=== PATIENT | female | born 1950 | race Caucasian/White ===

== ENCOUNTER 2017-05-24 16:01 | Observation (INO) | payer BC, MEDICAID ==
[2017-05-24] MEDS ORDERED: diphenhydrAMINE 50 MG/ML 1 ML VIAL IVP STA (16:23)
[2017-05-24] MEDS ORDERED: methylPREDNISolone SOD SUCCI 125 MG/2 ML VIAL IV STA (16:23)
[2017-05-24] MEDS ORDERED: FAMOTIDINE 20 MG/2 ML VIAL IV STA (16:23)
[2017-05-24] MEDS ORDERED: SODIUM CHLORIDE 0.9% 1,000 ML IV STA (16:24)
[2017-05-24] MEDS ORDERED: RX INFO: IV CONTRAST WAS GIVEN 1 EACH MISC MISCELLANE PRN (16:45)
[2017-05-24 16:59] LABS: Basophils # (A) 0.1 k/uL (0-0.2); Basophils % (A) 1 %; Eosinophils # (A) 0.4 k/uL (0-0.7); Eosinophils % (A) 3 %; HCT 40.7 % (34.0-46.0); HGB 13.2 gm/dL (11.4-16.0); Lymphocytes # (A) 1.7 k/uL (1.0-4.8); Lymphocytes % (A) 14 %; MCH 27.6 pg (25.0-35.0); MCHC 32.4 g/dL (31.0-37.0); MCV 85.3 fL (80.0-100.0); Mean Platelet Volume 7.1; Monocytes # (A) 0.5 k/uL (0-1.0); Monocytes % (A) 4 %; Neutrophils # (A) 9.1 k/uL (1.3-7.7); Neutrophils % (A) 76 %; Platelet Count 396 k/uL (150-450); RBC 4.77 m/uL (3.80-5.40); RDW 15.1 % (11.5-15.5)
[2017-05-24 17:15] LABS: Albumin 4.2 g/dL (3.5-5.0); Calcium 10.1 mg/dL (8.4-10.2); Magnesium 1.7 mg/dL (1.6-2.3); Potassium 4.3 mmol/L (3.5-5.1); Total Bilirubin 0.5 mg/dL (0.2-1.3); Total Protein 7.2 g/dL (6.3-8.2)
[2017-05-24 17:28] LABS: INR 0.9 (<1.2); Prothrombin Time 9.3 sec (9.0-12.0)
[2017-05-24 17:29] LABS: Partial Thromboplastin Time 21.8 sec (22.0-30.0)
[2017-05-24 17:30] LABS: Creatine Kinase 25 U/L (30-135)
--- NOTE | 2017-05-24 17:38 | ED ---
General Adult HPI - General Chief complaint: Chest Pain Stated complaint: Needs to have ct done but allergic to contrast Time Seen by Provider: 05/24/17 16:15 Source: patient, RN notes reviewed Mode of arrival: ambulatory Limitations: no limitations - History of Present Illness Initial comments: 66-year-old female presents to the emergency department stating that she does have a CT done of her chest. She states for the last 6 weeks she's been developing this chest pain. She states over the last today she's noticed worsening chest pain IN THE RIGHT SIDE OF HER CHEST AND RADIATING TO HER BACK. SHE STATES SOMETIMES IT'LL RADIATE DOWN HER RIGHT ARM. SHE STATES KEEPING HER UP AT NIGHT TO THE POINT THAT SHE CANNOT SLEEP. PATIENT STATES SHE WENT TO HER DOCTOR TODAY AND THEY REFERRED HER TO HAVE A STAT CT ANGIOGRAM FOR ANEURYSM. PATIENT STATES SHE IS ALLERGIC to the dye so they sent her here. She states that this time she's not having the pain has been getting worse over last 3 days. She has a nausea vomiting or shortness of breath. She does admit to history of hypertension diabetes and history of IL in the past. Patient states that this time she is symptom free and she was just like a CAT scan done. Patient denies any recent fever, chills, shortness of breath, abdominal pain, nausea vomiting, numbness or tingling, dysuria or hematuria, constipation or diarrhea, headaches or visual changes, or any other current symptoms. - Related Data Home Medications Medication Instructions Recorded Confirmed Furosemide 20 mg PO DAILY 09/19/13 05/24/17 Gabapentin 100 mg PO QAM 09/19/13 05/24/17 Lisinopril [Zestril] 20 mg PO BID 09/19/13 05/24/17 Potassium Chloride [Klor-Con 10] 10 meq PO DAILY 09/19/13 05/24/17 Aspirin 162 mg PO DAILY 12/05/14 05/24/17 Atorvastatin [Lipitor] 20 mg PO HS 12/05/14 05/24/17 Gabapentin [Neurontin] 200 mg PO HS 12/05/14 05/24/17 Levothyroxine Sodium [Synthroid] 125 mcg PO MOTUWETHFRSA 12/05/14 05/24/17 amLODIPine [Norvasc] 5 mg PO DAILY 12/05/14 05/24/17 metFORMIN HCL 1,000 mg PO BID 12/05/14 05/24/17 Cetirizine HCl [Zyrtec] 10 mg PO HS 05/24/17 05/24/17 Cholecalciferol [Vitamin D3] 1,000 unit PO DAILY 05/24/17 05/24/17 Glimepiride [Amaryl] 2 mg PO AC-BRKFST 05/24/17 05/24/17 Multivitamins, Thera [Multivitamin 1 tab PO DAILY 05/24/17 05/24/17 (formulary)] Allergies Allergy/AdvReac Type Severity Reaction Status Date / Time haloperidol [From Haldol] Allergy Unknown Verified 05/24/17 16:34 haloperidol lactate Allergy Unknown Verified 05/24/17 16:34 [From Haldol] Iodinated Contrast- Oral and Allergy Unknown Verified 05/24/17 16:34 IV Dye [Iodinated Contrast Media - IV Dye] adhesive AdvReac Severe sores Verified 05/24/17 16:34 ciprofloxacin [From Cipro] AdvReac Heartburn Verified 05/24/17 16:34 steri-strips AdvReac Severe sore Uncoded 05/24/17 16:12 Review of Systems ROS Statement: Those systems with pertinent positive or pertinent negative responses have been documented in the HPI. ROS Other: All systems not noted in ROS Statement are negative. Past Medical History Past Medical History: Heart Failure, Diabetes Mellitus, Hypertension, Myocardial Infarction (IL), Sleep Apnea/CPAP/BIPAP Additional Past Medical History / Comment(s): closed head injury 1988, kidney stones Last Myocardial Infarction Date:: 1988 History of Any Multi-Drug Resistant Organisms: None Reported Past Surgical History: Cholecystectomy, Hysterectomy Additional Past Surgical History / Comment(s): thyroidectomy Past Anesthesia/Blood Transfusion Reactions: Postoperative Nausea & Vomiting ( PONV) Past Psychological History: No Psychological Hx Reported Smoking Status: Never smoker Past Alcohol Use History: None Reported Past Drug Use History: None Reported - Past Family History Mother Family Medical History: Cancer Father Family Medical History: Cancer General Exam - General Exam Comments Initial Comments: General: The patient is awake and alert, in no distress, and does not appear acutely ill. Eye: Pupils are equal, round and reactive to light, extra-ocular movements are intact; there is normal conjunctiva bilaterally. No signs of icterus. Ears, nose, mouth and throat: There are moist mucous membranes. Neck: The neck is supple, there is no tenderness. Cardiovascular: There is a regular rate and rhythm. No murmur, rub or gallop is appreciated. Respiratory: Lungs are clear to auscultation, respirations are non-labored, breath sounds are equal. No wheezes, stridor, rales, or rhonchi. Gastrointestinal: Soft, non-distended, non-tender abdomen without masses or organomegaly noted. There is no rebound or guarding present. No CVA tenderness. Bowel sounds are unremarkable. Back: There is no tenderness to palpation in the midline. There is no obvious deformity. No rashes noted. Musculoskeletal: Normal ROM, no tenderness, There is no pedal edema. There is no calf tenderness or swelling. Sensation intact. Pulses equal bilaterally 2+. Neurological: CN II-XII intact, There are no obvious motor or sensory deficits. Coordination appears grossly intact. Speech is normal. Skin: Skin is warm and dry and no rashes or lesions are noted. Psychiatric: Cooperative, appropriate mood & affect, normal judgment. Limitations: no limitations Course Vital Signs 05/24/17 05/24/17 05/24/17 16:10 17:23 19:20 Temperature 97.8 F Pulse Rate 86 86 77 Respiratory 18 18 18 Rate Blood Pressure 142/70 123/71 154/72 O2 Sat by Pulse 97 97 96 Oximetry EKG Findings - EKG Comments: EKG Findings:: Normal sinus rhythm, left axis deviation, ventricular rate 82, MN interval 182, QRS duration 98 Medical Decision Making - Medical Decision Making 66-year-old female presents for needing CT to rule out aneurysm. Patient does complain of worsening chest pain with hypertension diabetes and history of IL in the past. This time we did do blood work we were unable to just send the patient for outpatient CAT scan because CAT scan stated that they will not give the patient that 3 Meds and they do not do CAT scans from premeds given prior to the patient receiving the CAT scan in the ER and would have to be in ER test ordered. This time the test was ordered and also additional workup for the patient's chest pain. CAT scan has been reviewed that does show some retroperitoneal lymphadenopathy. Patient's laboratory otherwise is stable. This time patient for cardiac rule out. He will like her admitted overnight for observation when discussed with her by Dr. Pimentel. Dr. Jarvis who does agree to the admission. - Lab Data Result diagrams: 05/24/17 16:41 05/24/17 16:41 Lab Results 05/24/17 05/24/17 05/24/17 Range/Units 16:41 16:41 16:41 WBC 12.0 H (3.8-10.6) k/uL RBC 4.77 (3.80-5.40) m/uL Hgb 13.2 (11.4-16.0) gm/dL Hct 40.7 (34.0-46.0) % MCV 85.3 (80.0-100.0) fL MCH 27.6 (25.0-35.0) pg MCHC 32.4 (31.0-37.0) g/dL RDW 15.1 (11.5-15.5) % Plt Count 396 (150-450) k/uL Neutrophils % 76 % Lymphocytes % 14 % Monocytes % 4 % Eosinophils % 3 % Basophils % 1 % Neutrophils # 9.1 H (1.3-7.7) k/uL Lymphocytes # 1.7 (1.0-4.8) k/uL Monocytes # 0.5 (0-1.0) k/uL Eosinophils # 0.4 (0-0.7) k/uL Basophils # 0.1 (0-0.2) k/uL PT (9.0-12.0) sec INR (<1.2) APTT (22.0-30.0) sec Sodium 140 (137-145) mmol/L Potassium 4.3 (3.5-5.1) mmol/L Chloride 99 (98-107) mmol/L Carbon Dioxide 25 (22-30) mmol/L Anion Gap 16 mmol/L BUN 17 (7-17) mg/dL Creatinine 1.02 (0.52-1.04) mg/dL Est GFR (CKD-EPI)AfAm 68 (>60 ml/min/1.73 sqM) Est GFR (CKD-EPI)NonAf 59 (>60 ml/min/1.73 sqM) Glucose 398 H (74-99) mg/dL Calcium 10.1 (8.4-10.2) mg/dL Magnesium 1.7 (1.6-2.3) mg/dL Total Bilirubin 0.5 (0.2-1.3) mg/dL AST 23 (14-36) U/L ALT 24 (9-52) U/L Alkaline Phosphatase 193 H (38-126) U/L Total Creatine Kinase 25 L (30-135) U/L CK-MB (CK-2) 0.3 (0.0-2.4) ng/mL CK-MB (CK-2) Rel Index 1.2 Troponin I <0.012 (0.000-0.034) ng/mL Total Protein 7.2 (6.3-8.2) g/dL Albumin 4.2 (3.5-5.0) g/dL 05/24/17 Range/Units 16:41 WBC (3.8-10.6) k/uL RBC (3.80-5.40) m/uL Hgb (11.4-16.0) gm/dL Hct (34.0-46.0) % MCV (80.0-100.0) fL MCH (25.0-35.0) pg MCHC (31.0-37.0) g/dL RDW (11.5-15.5) % Plt Count (150-450) k/uL Neutrophils % % Lymphocytes % % Monocytes % % Eosinophils % % Basophils % % Neutrophils # (1.3-7.7) k/uL Lymphocytes # (1.0-4.8) k/uL Monocytes # (0-1.0) k/uL Eosinophils # (0-0.7) k/uL Basophils # (0-0.2) k/uL PT 9.3 (9.0-12.0) sec INR 0.9 (<1.2) APTT 21.8 L (22.0-30.0) sec Sodium (137-145) mmol/L Potassium (3.5-5.1) mmol/L Chloride (98-107) mmol/L Carbon Dioxide (22-30) mmol/L Anion Gap mmol/L BUN (7-17) mg/dL Creatinine (0.52-1.04) mg/dL Est GFR (CKD-EPI)AfAm (>60 ml/min/1.73 sqM) Est GFR (CKD-EPI)NonAf (>60 ml/min/1.73 sqM) Glucose (74-99) mg/dL Calcium (8.4-10.2) mg/dL Magnesium (1.6-2.3) mg/dL Total Bilirubin (0.2-1.3) mg/dL AST (14-36) U/L ALT (9-52) U/L Alkaline Phosphatase (38-126) U/L Total Creatine Kinase (30-135) U/L CK-MB (CK-2) (0.0-2.4) ng/mL CK-MB (CK-2) Rel Index Troponin I (0.000-0.034) ng/mL Total Protein (6.3-8.2) g/dL Albumin (3.5-5.0) g/dL - Radiology Data Radiology results: report reviewed, image reviewed Disposition Clinical Impression: Lymphadenopathy, retroperitoneal, Unstable angina Disposition: ADMITTED IP TO THIS [facility] Condition: Stable Referrals: Leonard Solano MD [Primary Care Provider] - 1-2 days Decision Date: 05/24/17 Decision Time: 20:29
[2017-05-24 17:42] LABS: Creatine Kinase MB 0.3 ng/mL (0.0-2.4); Troponin I <0.012 ng/mL (0.000-0.034)
--- NOTE | 2017-05-24 19:13 | XR ---
EXAMINATION TYPE: XR chest 2V DATE OF EXAM: 05/24/2017 COMPARISON: 12/05/2014 HISTORY: Chest pain TECHNIQUE: Frontal and lateral views of the chest are obtained. FINDINGS: Heart and mediastinum are normal. There are small calcified granuloma in the left upper lo be. Lungs are clear of consolidation. There is no heart failure. There is no pleural effusion. There are chest leads. IMPRESSION: No active cardiopulmonary disease. No change.
--- NOTE | 2017-05-24 19:48 | CT ---
EXAMINATION TYPE: CT angio thoracic/abd aorta DATE OF EXAM: 05/24/2017 COMPARISON: 2015 HISTORY: Chest and back pain. CT DLP: 2200 mGycm. Automated Exposure Control for Dose Reduction was Utilized. CONTRAST: CT scan of the thorax, abdomen and pelvis is performed with IV Contrast, patient injected with 100ml mL of Isovue 370. FINDINGS: There are 3-D post processed images. There is no evidence of thoracic aortic aneurysm or dissection. Heart is enlarged. There is no perica rdial effusion. Abdominal aorta has normal size. There is wide patency of the common internal and external iliac wes eric. There is no evidence of abdominal aortic aneurysm or dissection. There is wide patency of the c eliac artery and the superior mesenteric artery. There is bilateral wide patency of the renal arterie s. There are multiple enlarged retroperitoneal lymph nodes on the left side more than the right. These m easure up to 4 cm. There are multiple sigmoid diverticula. There is no evidence of diverticulitis. Bl adder distends smoothly. There is no ascites. Appendix appears normal. There is a 1.5 cm left renal c ortical cyst. There is normal contrast opacification of the kidneys without evidence of a solid renal mass. I see no bony destructive process. There are spondylotic changes in the thoracic and lumbar sp ine. There are calcified granulomata at the left pulmonary hilum. CONCLUSION: There is atherosclerotic vascular disease. No evidence of thoracic aortic aneurysm or dissection. Mild sigmoid diverticulosis without sign of diverticulitis. There is clearing of the right renal obstruction and right renal calculus compared to old CT scan of 12/05/2014. There is new retroperitoneal moderate adenopathy suspicious for lymphoma compared to old exam. Follow -up is recommended.
[2017-05-24] MEDS ORDERED: ASPIRIN 81 MG PO STA (20:30)
[2017-05-24] MEDS ORDERED: NITROGLYCERIN SL TABS 0.4 MG TAB SUBLINGUAL PRN (20:30)
[2017-05-24] MEDS ORDERED: ATORVASTATIN 20 MG TAB PO SCH (21:00)
[2017-05-24 21:18] LABS: Glucose,Whole Blood 311 mg/dL (75-99)
[2017-05-24 21:30] VITALS: BMI 32.1
[2017-05-24] MEDS: GABAPENTIN 100 MG CAP PO SCH (22:29)
[2017-05-24] MEDS: LISINOPRIL 20 MG TAB PO SCH (22:29)
[2017-05-24] MEDS: LORATADINE 10 MG TAB PO SCH (22:29)
[2017-05-24] MEDS ORDERED: FUROSEMIDE 20 MG TAB PO STA (22:33)
[2017-05-24 23:14] LABS: Creatine Kinase 26 U/L (30-135)
[2017-05-24 23:22] LABS: Glucose,Whole Blood 382 mg/dL (75-99)
[2017-05-24 23:28] LABS: Creatine Kinase MB 0.4 ng/mL (0.0-2.4); Troponin I <0.012 ng/mL (0.000-0.034)
[2017-05-25] MEDS: HYDROcodone/APAP 5-325MG 1 EACH TAB PO PRN ×2 (01:30→19:57)
--- NOTE | 2017-05-25 02:38 | HP ---
DOS 05/24/2017 HISTORY AND PHYSICAL I am covering for Dr. Leonard Solano. CHIEF COMPLAINT: Chest pain. HISTORY OF PRESENT ILLNESS: This 66-year-old woman with a past medical history of multiple medical problems including CHF, history of diabetes, hypertension, history of sleep apnea, history of closed head injury being followed by Dr. Leonard Solano in the outpatient setting was complaining of on and off chest pains on the right side of the chest for 6-8 weeks. The patient stated the pain is throbbing and radiating right from the breast to the posterior part of the chest and patient came to [facility]. A CT scan of the abdomen and pelvis did not show any evidence of aortic aneurysm, but showed some retroperitoneal lymph nodes. The patient admitted for further evaluation and treatment. The patient is taking Aleve for the pain. Otherwise there is mild fever . Otherwise no headache, loss of consciousness, seizures at this time. PAST MEDICAL HISTORY: Past medical history of nephrolithiasis and as well as ureteric stent implantation, diabetes, hypertension, sleep apnea, closed injury, cholecystectomy. MEDICATIONS: Prior to admission include: 1. Metformin 1000 mg p.o. b.i.d. 2. Norvasc 5 mg p.o. daily. 3. Klor-Con 10 mEq p.o. daily. 4. Multivitamins 1 p.o. daily. 6. Synthroid 125 mcg Monday, Monday, Monday, , Monday, Monday. 7. Amaryl 2 mg with breakfast. 8. Neurontin 200 mg q.h.s. 9. Gabapentin 100 mg q.a.m. 10.Lasix 20 mg. 11.Vitamin D3 1000 daily. 12.Zyrtec 10 mg daily. 13.Lipitor 20 mg q.h.s. 14.Aspirin 162 mg p.o. daily. ALLERGIES: HALDOL, IODINATED CONTRAST DYE, ADHESIVES, CIPRO AND STERI-STRIPS. FAMILY HISTORY: History of breast cancer in the family. SOCIAL HISTORY: Occasional alcohol intake. No history of smoking. REVIEW OF SYSTEMS: ENT: No diminished vision or hearing. Cardiovascular as mentioned earlier. Respiratory: As mentioned earlier. GI no nausea or vomiting. as mentioned earlier. Central nervous system: No numbness or weakness. Allergy/Immunology: No asthma or hayfever. Musculoskeletal: As mentioned earlier. Hematology/Oncology: No history of anemia. Endocrine as mentioned earlier. Constitutional: As mentioned earlier. DERMATOLOGY: Negative. Negative. Rheumatology: Negative. Psychiatric: As mentioned earlier. PHYSICAL EXAMINATION: Alert oriented x 3. Pulse 77, blood pressure 150/72, respiration 18, temperature 98.4, pulse ox 98% on room air. HEENT: Conjunctivae normal. Oral mucosa moist. Neck is no jugular venous distention. No carotid bruit. No lymph node enlargement. Cardiovascular System: S1, S2 muffled. Respiration: Breath sounds diminished in the bases. No rhonchi and no crackles. ABDOMEN: Soft, nontender. No mass palpable. No hepatosplenomegaly. Legs: No edema and no swelling. NERVOUS SYSTEM: Higher functions as mentioned earlier. Moves all four limbs. No focal deficits. LYMPHATICS: No lymph nodes palpable in neck, axillae or groin. SKIN: No ulcer, rash or bleeding. LAB STUDIES: WBC 12, otherwise glucose 398. Alkaline phosphatase 193. Creatine kinase 25. ASSESSMENT: 1. Right sided chest pain, rule out coronary artery disease. 2. Rule out possible musculoskeletal chest pain. 3. Increased WBC. 4. Rule out urinary tract infection. 5. Diabetes mellitus type 2, poorly controlled. 6. History of congestive heart failure with chronic diastolic dysfunction. 7. Diabetes. 8. Hypertension. 9. Sleep apnea. 10.History of closed head injury. 11.History of nephrolithiasis. RECOMMENDATIONS AND DISCUSSION: In this 66-year-old woman who presented with multiple complex medical issues, we will monitor the patient closely. Continue the current management and symptomatic treatment. Otherwise at this time I would recommend cardiology consultation. CT scan has been done. Repeat blood work as noted. I would also recommend insulin to control the blood sugars also. Otherwise the prognosis guarded because of multiple complex medical issues. Further recommendations to follow. A copy of dictation being forwarded to Dr. Solano who is the primary physician. We will check hemoglobin A1c also. MMODL / IJN: [id number] / LEXUS
[2017-05-25 05:16] LABS: Basophils % (A) 0 %; Eosinophils % (A) 0 %; HCT 40.9 % (34.0-46.0); HGB 12.6 gm/dL (11.4-16.0); Hypochromasia Slight; Lymphocytes # (A) 1.1 k/uL (1.0-4.8); Lymphocytes % (A) 8 %; MCH 26.6 pg (25.0-35.0); MCHC 30.8 g/dL (31.0-37.0); MCV 86.1 fL (80.0-100.0); Mean Platelet Volume 7.3; Monocytes # (A) 0.3 k/uL (0-1.0); Monocytes % (A) 2 %; Neutrophils # (A) 12.1 k/uL (1.3-7.7); Neutrophils % (A) 90 %; Platelet Count 415 k/uL (150-450); RBC 4.75 m/uL (3.80-5.40); RDW 15.3 % (11.5-15.5); WBC 13.5 k/uL (3.8-10.6)
[2017-05-25 05:28] LABS: C Reactive Protein 44.2 mg/L (<10.0); Calcium 10.6 mg/dL (8.4-10.2); Potassium 4.7 mmol/L (3.5-5.1)
[2017-05-25 05:35] LABS: Creatine Kinase 25 U/L (30-135)
[2017-05-25 05:43] LABS: Glucose,Whole Blood 422 mg/dL (75-99)
[2017-05-25] MEDS: LEVOTHYROXINE 125 MCG TAB PO SCH (05:44)
[2017-05-25] MEDS: INSULIN ASPART 100 UNIT/ML 1 ML 10 ML VIAL SQ SCH ×6 (05:45→19:59)
[2017-05-25 05:49] LABS: Creatine Kinase MB 0.4 ng/mL (0.0-2.4); Troponin I <0.012 ng/mL (0.000-0.034)
[2017-05-25 06:43] LABS: Glucose,Whole Blood 426 mg/dL (75-99)
[2017-05-25] MEDS ORDERED: INSULIN ASPART 100 UNIT/ML 1 ML 10 ML VIAL SQ ONE (06:50)
[2017-05-25 07:46] LABS: Glucose,Whole Blood 373 mg/dL (75-99)
[2017-05-25 08:44] LABS: Erythrocyte Sedimentation Rate 70 mm/hr (0-20)
[2017-05-25] MEDS ORDERED: ASPIRIN 325 MG TAB PO SCH (09:00)
[2017-05-25] MEDS ORDERED: FUROSEMIDE 20 MG TAB PO SCH ×2 (09:00)
[2017-05-25] MEDS: metFORMIN 500 MG TAB PO SCH ×2 (09:46→17:11)
[2017-05-25] MEDS: GABAPENTIN 100 MG CAP PO SCH ×2 (09:48→19:57)
[2017-05-25] MEDS: GLIMEPIRIDE 2 MG TAB PO SCH (09:48)
[2017-05-25] MEDS: amLODIPine 5 MG TAB PO SCH (09:48)
[2017-05-25] MEDS: POTASSIUM CHLORIDE ER 10 MEQ TAB.ER.PRT PO SCH (09:48)
[2017-05-25] MEDS: LISINOPRIL 20 MG TAB PO SCH ×2 (09:48→19:57)
[2017-05-25] MEDS: MULTIVITAMINS, THERA 1 EACH TAB PO SCH (09:51)
[2017-05-25] MEDS: CHOLECALCIFEROL 1,000 UNIT TAB PO SCH (09:51)
[2017-05-25] MEDS ORDERED: ASPIRIN 81 MG PO SCH (10:01)
--- NOTE | 2017-05-25 10:02 | P.CRDCN ---
History of Present Illness Consult date: 05/25/17 Consult reason: chest pain History of present illness: Mrs. Ledezma is a pleasant 66-year-old female past medical history significant for diastolic heart failure, diabetes mellitus, hypertension, sleep apnea and kidney stones. She denies history of coronary artery disease. She has seen a amalgamator, Dr. Upton out of [facility] in the past. She states she underwent cardiac catheterization 3-4 yrs ago and there was no blockage, per her. Those records are not available to me at this time. We have been asked to see her in consultation for complaints of chest pain. She states last week she had been feeling pain in the lower back/flank region. She saw her PCP and was started on cipro for a UTI. She took the cipro for a few days and then started noticing a burning sensation in her right anterior chest wall around the right breast. The pain was described as a burning, squeezing sensation that radiated through to the right upper back. The pain was worse with certain movements and when she coughed or sneezed. She denies associated shortness of breath, dizziness, palpitations, nausea, vomiting or diaphoresis. She saw her PCP who recommended she come to ED for evaluation and to rule out aortic dissection. CTA was done and was negative for aortic aneurysm or dissection but did reveal a new retroperitoneal moderate adenopathy suspicious for lymphoma compared to old exam in 2015. At the time of my exam she is seen sitting up in the chair in no acute distress. Chest pain has resolved. EKG reveals sinus mechanism with T-wave inversions noted in the anterior lateral leads. Compared to old EKG this does not look to be anything new. Chest x-ray negative for an acute cardiopulmonary process. Laboratory data reviewed, WBC 13.5, hemoglobin 12.6, sodium 143, potassium 4.7, magnesium 1.7, creatinine 1.2 up from 1.02 on admission, cardiac enzymes negative 3, CRP 44.2, LDL 113. Blood sugars have been upwards of 300 since admission with 475 this morning. Current cardiac medications include aspirin 162 mg daily, atorvastatin 20 mg daily, Lasix 20 mg daily, lisinopril 20 mg twice a day, potassium supplementation 10 daily and Norvasc 5 mg daily. Most recent echocardiogram on file July 2013 reveals reserved left ventricular systolic function with ejection fraction 50-55% and no evidence of valvular heart disease. Review of Systems At the time of my exam: CONSTITUTIONAL: Denies fever. Denies chills. EYES: Denies blurred vision. Denies vision changes. Denies eye pain. EARS, NOSE, MOUTH & THROAT: Denies headache. Denies sore throat. Denies ear pain. CARDIOVASCULAR: Denies chest pain. Denies shortness of breath. Denies orthopnea. Denies PND. Denies palpitations. RESPIRATORY: Denies cough. GASTROINTESTINAL: Denies abdominal pain. Denies diarrhea. Denies constipation. Denies nausea. Denies vomiting. MUSCULOSKELETAL: Denies myalgias. INTEGUMENTARY: Denies pruitis. Denies rash. NEUROLOGIC: Denies numbness. Denies tingling. Denies weakness. PSYCHIATRIC: Denies anxiety. Denies depression. ENDOCRINE: Denies fatigue. Denies weight change. Denies polydipsia. Denies polyurina. GENITOURINARY: Denies burning, hematuria or urgency with micturation. HEMATOLOGIC: Denies history of anemia. Denies bleeding. Past Medical History Past Medical History: Heart Failure, Diabetes Mellitus, Hypertension, Sleep Apnea/CPAP/BIPAP Additional Past Medical History / Comment(s): closed head injury 1988, kidney stones Last Myocardial Infarction Date:: 1988 History of Any Multi-Drug Resistant Organisms: None Reported Past Surgical History: Cholecystectomy, Hysterectomy Additional Past Surgical History / Comment(s): thyroidectomy Past Anesthesia/Blood Transfusion Reactions: Postoperative Nausea & Vomiting ( PONV) Smoking Status: Never smoker - Past Family History Mother Family Medical History: Cancer Additional Family Medical History / Comment(s): breast CA Father Family Medical History: Cancer Additional Family Medical History / Comment(s): colon CA Medications and Allergies Home Medications Medication Instructions Recorded Confirmed Type Furosemide 20 mg PO DAILY 09/19/13 05/24/17 History Gabapentin 100 mg PO QAM 09/19/13 05/24/17 History Lisinopril [Zestril] 20 mg PO BID 09/19/13 05/24/17 History Potassium Chloride [Klor-Con 10] 10 meq PO DAILY 09/19/13 05/24/17 History Aspirin 162 mg PO DAILY 12/05/14 05/24/17 History Atorvastatin [Lipitor] 20 mg PO HS 12/05/14 05/24/17 History Gabapentin [Neurontin] 200 mg PO HS 12/05/14 05/24/17 History Levothyroxine Sodium [Synthroid] 125 mcg PO MOTUWETHFRSA 12/05/14 05/24/17 History amLODIPine [Norvasc] 5 mg PO DAILY 12/05/14 05/24/17 History metFORMIN HCL 1,000 mg PO BID 12/05/14 05/24/17 History Cetirizine HCl [Zyrtec] 10 mg PO HS 05/24/17 05/24/17 History Cholecalciferol [Vitamin D3] 1,000 unit PO DAILY 05/24/17 05/24/17 History Glimepiride [Amaryl] 2 mg PO AC-BRKFST 05/24/17 05/24/17 History Multivitamins, Thera [Multivitamin 1 tab PO DAILY 05/24/17 05/24/17 History (formulary)] Allergies Allergy/AdvReac Type Severity Reaction Status Date / Time haloperidol [From Haldol] Allergy Unknown Verified 05/24/17 21:16 haloperidol lactate Allergy Unknown Verified 05/24/17 21:16 [From Haldol] Iodinated Contrast- Oral and Allergy Rash/Hives Verified 05/24/17 21:16 IV Dye [Iodinated Contrast Media - IV Dye] adhesive AdvReac Severe sores Verified 05/24/17 21:16 ciprofloxacin [From Cipro] AdvReac Heartburn Verified 05/24/17 21:16 steri-strips AdvReac Severe sore Uncoded 05/24/17 21:16 Physical Exam Vitals: Vital Signs Temp Pulse Pulse Resp BP BP Pulse Ox 05/25/17 04:00 98.1 F 79 16 122/64 96 05/25/17 03:23 18 05/25/17 00:00 18 05/24/17 23:26 98.2 F 80 17 119/62 94 L 05/24/17 21:23 98.5 F 81 16 140/73 98 05/24/17 20:36 97 18 138/92 96 05/24/17 19:20 77 18 154/72 96 05/24/17 17:23 86 18 123/71 97 05/24/17 16:10 97.8 F 86 18 142/70 97 Intake and Output 05/24/17 05/25/17 05/25/17 22:59 06:59 14:59 Other: # Voids 1 1 Weight 79.6 kg Blood pressure 141/74 heart rate 93 afebrile maintaining oxygen saturation on room air GENERAL: This is a 66-year-old female in no apparent distress at the time of my examination. Obese. HEENT: Head is atraumatic, normocephalic. Pupils are equal, round. Sclerae anicteric. Conjunctivae are clear. Mucous membranes of the mouth are moist. Neck is supple. There is no jugular venous distention. No carotid bruit is heard. LUNGS: Clear to auscultation no wheezes, rales or rhonchi. No chest wall tenderness is noted on palpation or with deep breathing. HEART: Regular rate and rhythm without murmurs, rubs or gallops. S1 and S2 heard. ABDOMEN: Soft, nontender. Bowel sounds are heard. No organomegaly noted. EXTREMITIES: No evidence of peripheral edema and no calf tenderness noted. VASCULAR: Radial and dorsalis pedis pulses palpated, no evidence of clubbing. NEUROLOGIC: Patient is awake, alert and oriented x3. Results 05/25/17 04:32 05/25/17 04:32 Cardiac Enzymes 05/24/17 05/24/17 05/24/17 Range/Units 16:41 16:41 22:16 AST 23 (14-36) U/L CK-MB (CK-2) 0.3 0.4 (0.0-2.4) ng/mL Troponin I <0.012 <0.012 (0.000-0.034) ng/mL 05/25/17 Range/Units 04:32 AST (14-36) U/L CK-MB (CK-2) 0.4 (0.0-2.4) ng/mL Troponin I <0.012 (0.000-0.034) ng/mL Coagulation 05/24/17 Range/Units 16:41 PT 9.3 (9.0-12.0) sec APTT 21.8 L (22.0-30.0) sec Lipids 05/25/17 Range/Units 04:32 Triglycerides 65 (<150) mg/dL Cholesterol 182 (<200) mg/dL HDL Cholesterol 56 (40-60) mg/dL CBC 05/24/17 05/25/17 Range/Units 16:41 04:32 WBC 12.0 H 13.5 H (3.8-10.6) k/uL RBC 4.77 4.75 (3.80-5.40) m/uL Hgb 13.2 12.6 (11.4-16.0) gm/dL Hct 40.7 40.9 (34.0-46.0) % Plt Count 396 415 (150-450) k/uL Comprehensive Metabolic Panel 05/24/17 05/25/17 Range/Units 16:41 04:32 Sodium 140 143 (137-145) mmol/L Potassium 4.3 4.7 (3.5-5.1) mmol/L Chloride 99 101 (98-107) mmol/L Carbon Dioxide 25 20 L (22-30) mmol/L BUN 17 21 H (7-17) mg/dL Creatinine 1.02 1.20 H (0.52-1.04) mg/dL Glucose 398 H 475 H* (74-99) mg/dL Calcium 10.1 10.6 H (8.4-10.2) mg/dL AST 23 (14-36) U/L ALT 24 (9-52) U/L Alkaline Phosphatase 193 H (38-126) U/L Total Protein 7.2 (6.3-8.2) g/dL Albumin 4.2 (3.5-5.0) g/dL Current Medications Generic Name Dose Route Start Last Admin Trade Name Freq PRN Reason Stop Dose Admin Hydrocodone Bitart/Acetaminophen 1 each 05/25/17 00:08 05/25/17 01:30 [place] 5-325 PO 1 each Q6HR PRN Administration MODERATE Pain Amlodipine Besylate 5 mg 05/25/17 09:00 Norvasc PO DAILY [facility] Aspirin 325 mg 05/25/17 09:00 Aspirin PO DAILY [facility] Atorvastatin Calcium 20 mg 05/24/17 21:00 05/24/17 22:29 Lipitor PO 20 mg HS YVETTE Administration Cholecalciferol 1,000 unit 05/25/17 12:00 Vitamin D3 PO DAILY@1200 [facility] Furosemide 20 mg 05/25/17 09:00 Lasix PO BID@0900,1600 [facility] Gabapentin 100 mg 05/25/17 09:00 Neurontin PO QAM YVETTE Gabapentin 200 mg 05/24/17 21:00 05/24/17 22:29 Neurontin PO 200 mg HS YVETTE Administration Glimepiride 2 mg 05/25/17 07:30 Amaryl PO AC-BRKFST [facility] Insulin Aspart 0 unit 05/25/17 07:30 05/25/17 05:45 Novolog SQ 8 unit ACHS YVETTE Administration Protocol Levothyroxine Sodium 125 mcg 05/25/17 06:30 05/25/17 05:44 Synthroid PO 125 mcg MOTUWETHFRSA YVETTE Administration Lisinopril 20 mg 05/24/17 21:00 05/24/17 22:29 Zestril PO 20 mg BID YVETTE Administration Loratadine 10 mg 05/24/17 21:00 05/24/17 22:29 Claritin PO 10 mg HS [facility] Administration Metformin HCl 1,000 mg 05/25/17 07:30 Glucophage PO BID-W/MEALS [facility] Miscellaneous Information 1 each 05/24/17 16:45 05/24/17 16:56 Rx Info: Iv Contrast Was Given MISCELLANE 05/26/17 16:46 1 each DAILY PRN Administration Per Protocol Multivitamins 1 each 05/25/17 12:00 Theragran PO DAILY@1200 [facility] Nitroglycerin 0.4 mg 05/24/17 20:30 Nitrostat SUBLINGUAL Q5M PRN Chest Pain Potassium Chloride 10 meq 05/25/17 09:00 K-Dur 10 PO DAILY YVETTE Intake and Output 05/24/17 05/25/17 05/25/17 22:59 06:59 14:59 Other: # Voids 1 1 Weight 79.6 kg 05/25/17 04:32 05/25/17 04:32 Assessment and Plan Assessment: ASSESSMENT 1. Right sided chest pain, atypical for an acute ischemic event. EKG shows no evidence of acute ischemic changes and cardiac enzymes are negative 3. Acute coronary event has been ruled out. 2. Hypertension 3. Dyslipidemia 4. Diabetes mellitus, uncontrolled 5. History of diastolic heart failure 6. Leukocytosis 7. Sleep apnea PLAN Her pain is very atypical for cardiac etiology. We will obtain a 2-D echocardiogram and Doppler study to assess cardiac structure and function. Obtain records of previous catheterization. Continue with medical management of uncontrolled diabetes and questionable lymphoma on CT scan. Increase atorvastatin 40 mg daily. Change aspirin to 81 mg daily. Continue with lisinopril, amlodipine and Lasix at home doses. Follow-up with her primary amalgamator upon discharge. Nurse Practitioner note has been reviewed, I agree with a documented findings and plan of care. Patient was seen and examined.
[2017-05-25 11:54] LABS: Appearance,Urine Clear (Clear); Bilirubin,Urine Negative (Negative); Blood,Urine Negative (Negative); Color,Urine Yellow; Glucose,Urine (UA) 4+ (Negative); Ketones,Urine Negative (Negative); Leukocyte Esterase,Urine Negative (Negative); Nitrite,Urine Negative (Negative); PH, Urine 5.5 (5.0-8.0); Protein,Urine Trace (Negative); Specific Gravity,Urine 1.031 (1.001-1.035); Urobilinogen,Urine <2.0 mg/dL (<2.0)
[2017-05-25 12:09] LABS: Glucose,Whole Blood 318 mg/dL (75-99)
--- NOTE | 2017-05-25 12:11 | P.CONS ---
History of Present Illness - Reason for Consult Consult date: 05/25/17 retorperitoneal adenopathy Requesting physician: Edith Malloy - Chief Complaint chest pain - History of Present Illness Mrs. Ledezma is a very pleasant female pt admitted with chest pain, she has been seen by IM and Cardiology and her presenting symptoms have resolved. As part of her work up she had a CT of the aorta and incidentally multiple retroperitoneal lymph nodes were seen, L>R, up to 4cm in size, which is why we have been asked to see her. Pt denies unintentional wt. loss, acute changes in appetite, fevers, night sweats, recent illnesses. She is positive for 6-8 weeks of "lot's of back pain", all over, but more in the mid back on the right, came and went, worse when laying flat, aleve helped the pain, she was treated for a UTI and that helped the pain a little bit but, she just " knows someting is wrong". Denied cough, SOB, current chest pain or pressure, nausea, vomiting, did have some heartburn with abx therapy for UTI, no changes on bowel or bladder habits, nematuria, black or bloody stool, pain with elimination, swelling or other pain to report. Review of Systems 14 point ROS as stated in HPI Past Medical History Past Medical History: Heart Failure, Diabetes Mellitus, Hypertension, Sleep Apnea/CPAP/BIPAP Additional Past Medical History / Comment(s): closed head injury 1988, kidney stones Last Myocardial Infarction Date:: 1988 History of Any Multi-Drug Resistant Organisms: None Reported Past Surgical History: Cholecystectomy, Hysterectomy Additional Past Surgical History / Comment(s): thyroidectomy Past Anesthesia/Blood Transfusion Reactions: Postoperative Nausea & Vomiting ( PONV) Additional Psychological History / Comment(s): TBI Smoking Status: Never smoker Past Alcohol Use History: Unable to Obtain Past Drug Use History: None Reported - Past Family History Mother Family Medical History: Cancer Additional Family Medical History / Comment(s): breast CA Father Family Medical History: Cancer Additional Family Medical History / Comment(s): colon CA Medications and Allergies Home Medications Medication Instructions Recorded Confirmed Type Furosemide 20 mg PO DAILY 09/19/13 05/24/17 History Gabapentin 100 mg PO QAM 09/19/13 05/24/17 History Lisinopril [Zestril] 20 mg PO BID 09/19/13 05/24/17 History Potassium Chloride [Klor-Con 10] 10 meq PO DAILY 09/19/13 05/24/17 History Aspirin 162 mg PO DAILY 12/05/14 05/24/17 History Atorvastatin [Lipitor] 20 mg PO HS 12/05/14 05/24/17 History Gabapentin [Neurontin] 200 mg PO HS 12/05/14 05/24/17 History Levothyroxine Sodium [Synthroid] 125 mcg PO MOTUWETHFRSA 12/05/14 05/24/17 History amLODIPine [Norvasc] 5 mg PO DAILY 12/05/14 05/24/17 History metFORMIN HCL 1,000 mg PO BID 12/05/14 05/24/17 History Cetirizine HCl [Zyrtec] 10 mg PO HS 05/24/17 05/24/17 History Cholecalciferol [Vitamin D3] 1,000 unit PO DAILY 05/24/17 05/24/17 History Glimepiride [Amaryl] 2 mg PO AC-BRKFST 05/24/17 05/24/17 History Multivitamins, Thera [Multivitamin 1 tab PO DAILY 05/24/17 05/24/17 History (formulary)] Allergies Allergy/AdvReac Type Severity Reaction Status Date / Time haloperidol [From Haldol] Allergy Unknown Verified 05/24/17 21:16 haloperidol lactate Allergy Unknown Verified 05/24/17 21:16 [From Haldol] Iodinated Contrast- Oral and Allergy Rash/Hives Verified 05/24/17 21:16 IV Dye [Iodinated Contrast Media - IV Dye] adhesive AdvReac Severe sores Verified 05/24/17 21:16 ciprofloxacin [From Cipro] AdvReac Heartburn Verified 05/24/17 21:16 steri-strips AdvReac Severe sore Uncoded 05/24/17 21:16 Physical Exam Vitals: Vital Signs Temp Pulse Pulse Resp BP BP Pulse Ox 05/25/17 08:00 97.7 F 93 18 141/74 99 05/25/17 04:00 98.1 F 79 16 122/64 96 05/25/17 03:23 18 05/25/17 00:00 18 05/24/17 23:26 98.2 F 80 17 119/62 94 L 03/28/18 21:23 98.5 F 81 16 140/73 98 05/24/17 20:36 97 18 138/92 96 05/24/17 19:20 77 18 154/72 96 05/24/17 17:23 86 18 123/71 97 05/24/17 16:10 97.8 F 86 18 142/70 97 Intake and Output 05/24/17 05/25/17 05/25/17 22:59 06:59 14:59 Other: # Voids 1 1 Weight 79.6 kg - Constitutional General appearance: cooperative, no acute distress, obese - EENT Eyes: anicteric sclerae, EOMI, PERRLA, normal appearance ENT: hearing grossly normal, normal oropharynx - Neck left submandibular ?LN, firm area that was tender to palpation. Left supraclavicular fullness, possible LN swelling, no other areas of question, no axillary lymphadenpathy Neck: lymphadenopathy - Respiratory Respiratory: bilateral: CTA - Cardiovascular Rhythm: regular Heart sounds: normal: S1, S2 Abnormal Heart Sounds: no systolic murmur, no diastolic murmur, no rub, no S3 Gallop, no S4 Gallop, no click, no other leg Peripheral Edema: bilateral: None - Gastrointestinal General gastrointestinal: no absent bowel sounds, no decreased bowel sounds, no distended, no hepatomegaly, no hyperactive bowel sounds, normal bowel sounds, no organomegaly, no rigid, no scaphoid, soft, no splenomegaly, no tenderness, no umbilical hernia, no ventral hernia - Genitourinary no inguinal adenopathy - Integumentary Integumentary: normal - Neurologic Neurologic: CNII-XII intact - Musculoskeletal Musculoskeletal: strength equal bilaterally - Psychiatric Psychiatric: A&O x's 3, appropriate affect, intact judgment & insight Results CBC & Chem 7: 05/25/17 04:32 05/25/17 04:32 Labs: Abnormal Lab Results - Last 24 Hours (Table) 05/24/17 05/24/17 05/24/17 Range/Units 16:41 16:41 16:41 WBC 12.0 H (3.8-10.6) k/uL MCHC (31.0-37.0) g/dL Neutrophils # 9.1 H (1.3-7.7) k/uL ESR (0-20) mm/hr APTT (22.0-30.0) sec Carbon Dioxide (22-30) mmol/L BUN (7-17) mg/dL Creatinine (0.52-1.04) mg/dL Glucose 398 H (74-99) mg/dL POC Glucose (mg/dL) (75-99) mg/dL Calcium (8.4-10.2) mg/dL Alkaline Phosphatase 193 H (38-126) U/L Total Creatine Kinase 25 L (30-135) U/L C-Reactive Protein (<10.0) mg/L LDL Cholesterol, Calc (0-99) mg/dL 05/24/17 05/24/17 05/24/17 Range/Units 16:41 21:09 22:16 WBC (3.8-10.6) k/uL MCHC (31.0-37.0) g/dL Neutrophils # (1.3-7.7) k/uL ESR (0-20) mm/hr APTT 21.8 L (22.0-30.0) sec Carbon Dioxide (22-30) mmol/L BUN (7-17) mg/dL Creatinine (0.52-1.04) mg/dL Glucose (74-99) mg/dL POC Glucose (mg/dL) 311 H (75-99) mg/dL Calcium (8.4-10.2) mg/dL Alkaline Phosphatase (38-126) U/L Total Creatine Kinase 26 L (30-135) U/L C-Reactive Protein (<10.0) mg/L LDL Cholesterol, Calc (0-99) mg/dL 05/24/17 05/25/17 05/25/17 Range/Units 23:01 04:32 04:32 WBC (3.8-10.6) k/uL MCHC (31.0-37.0) g/dL Neutrophils # (1.3-7.7) k/uL ESR (0-20) mm/hr APTT (22.0-30.0) sec Carbon Dioxide 20 L (22-30) mmol/L BUN 21 H (7-17) mg/dL Creatinine 1.20 H (0.52-1.04) mg/dL Glucose 475 H* (74-99) mg/dL POC Glucose (mg/dL) 382 H (75-99) mg/dL Calcium 10.6 H (8.4-10.2) mg/dL Alkaline Phosphatase (38-126) U/L Total Creatine Kinase 25 L (30-135) U/L C-Reactive Protein 44.2 H (<10.0) mg/L LDL Cholesterol, Calc 113 H (0-99) mg/dL 05/25/17 05/25/17 05/25/17 Range/Units 04:32 05:40 06:41 WBC 13.5 H (3.8-10.6) k/uL MCHC 30.8 L (31.0-37.0) g/dL Neutrophils # 12.1 H (1.3-7.7) k/uL ESR 70 H (0-20) mm/hr APTT (22.0-30.0) sec Carbon Dioxide (22-30) mmol/L BUN (7-17) mg/dL Creatinine (0.52-1.04) mg/dL Glucose (74-99) mg/dL POC Glucose (mg/dL) 422 H 426 H (75-99) mg/dL Calcium (8.4-10.2) mg/dL Alkaline Phosphatase (38-126) U/L Total Creatine Kinase (30-135) U/L C-Reactive Protein (<10.0) mg/L LDL Cholesterol, Calc (0-99) mg/dL 05/25/17 Range/Units 07:44 WBC (3.8-10.6) k/uL MCHC (31.0-37.0) g/dL Neutrophils # (1.3-7.7) k/uL ESR (0-20) mm/hr APTT (22.0-30.0) sec Carbon Dioxide (22-30) mmol/L BUN (7-17) mg/dL Creatinine (0.52-1.04) mg/dL Glucose (74-99) mg/dL POC Glucose (mg/dL) 373 H (75-99) mg/dL Calcium (8.4-10.2) mg/dL Alkaline Phosphatase (38-126) U/L Total Creatine Kinase (30-135) U/L C-Reactive Protein (<10.0) mg/L LDL Cholesterol, Calc (0-99) mg/dL Chest x-ray: report reviewed CT scan - abdomen: report reviewed Assessment and Plan (1) Lymphadenopathy, retroperitoneal Narrative/Plan: Possible some adenopathy in the left submandibular area and left supraclavicular area. CT of chest and neck ordered for evaluation and to see if there are any other areas of lymphadenopathy that are more amenable to core biopsy or excision. If there are plans for discharge biopsy could be scheduled out pt as pt with a follow up with Dr. Paulson for results. Case was discussed with IM STEM MAKER, agree with work up at this time. They are working on treating pt severe hyperglycemia. Current Visit: Yes Status: Acute Priority: High Code(s): R59.0 - LOCALIZED ENLARGED LYMPH NODES SNOMED Code(s): 886228758
[2017-05-25] MEDS: INSULIN DETEMIR 100 UNIT/ML 10 ML VIAL SQ SCH (12:16)
--- NOTE | 2017-05-25 12:34 | ECHOF ---
Referral Reason:cp MEASUREMENTS -------- HEIGHT: 157.5 cm WEIGHT: 79.4 kg BP: IVSd: 1.2 cm (0.6 - 1.1) LVIDd: 4.0 cm (3.9 - 5.3) LVPWd: 1.3 cm (0.6 - 1.1) IVSs: 2.1 cm LVIDs: 2.1 cm LVPWs: 1.8 cm Ao Diam: 3.3 cm (2.0 - 3.7) AV Cusp: 1.9 cm (1.5 - 2.6) LA Diam: 3.2 cm (2.7 - 3.8) MV EXCURSION: 11.800 mm (> 18.000) MV EF SLOPE: 48 mm/s (70 - 150) EPSS: 1.5 cm MV E Marek: 0.73 m/s MV DecT: 184 ms MV A Marek: 1.16 m/s MV E/A Ratio: 0.63 RAP: 5.00 mmHg RVSP: 8.92 mmHg FINDINGS -------- Sinus rhythm. This was a technically difficult study with suboptimal views. The left ventricular size is normal. There is mild concentric left ventricular hypertrophy. Overa ll left ventricular systolic function is low-normal with, an EF between 50 - 55 %. The right ventricle is normal in size and function. The left atrium is normal in size. The right atrium is normal in size. Lumason used The aortic valve is trileaflet, and appears structurally normal. No aortic stenosis or regurgitation. The mitral valve leaflets are mildly thickened. There is trace mitral regurgitation. Mild tricuspid regurgitation present. The right ventricular systolic pressure, as measured by Doppl er, is 8.92mmHg. Pulmonic valve appears structurally normal. The aortic root size is normal. The pericardium is normal. CONCLUSIONS -------- 1. Sinus rhythm. 2. This was a technically difficult study with suboptimal views. 3. The left ventricular size is normal. 4. There is mild concentric left ventricular hypertrophy. 5. Overall left ventricular systolic function is low-normal with, an EF between 50 - 55 %. 6. The right ventricle is normal in size and function. 7. The left atrium is normal in size. 8. The right atrium is normal in size. 9. Lumason used 10. The aortic valve is trileaflet, and appears structurally normal. No aortic stenosis or regurgitat ion. 11. The mitral valve leaflets are mildly thickened. 12. There is trace mitral regurgitation. 13. Mild tricuspid regurgitation present. 14. The right ventricular systolic pressure, as measured by Doppler, is 8.92mmHg. 15. Pulmonic valve appears structurally normal. 16. The aortic root size is normal. 17. The pericardium is normal. EYELET PUNCH OPERATOR: Ginny Barros RDCS
[2017-05-25] MEDS ORDERED: IOPAMIDOL-300 CONTRAST 30 ML VIAL (ORAL USE) PO PRN (12:35)
--- NOTE | 2017-05-25 14:01 | CT ---
EXAMINATION TYPE: CT soft tissue neck wo con DATE OF EXAM: 05/25/2017 COMPARISON: CT brain 04/04/2011 HISTORY: 66-year-old female Left supraclavicular fullness TECHNIQUE: Contiguous axial scanning of the neck without IV contrast. Coronal and sagittal reconstruc tions performed. CT DLP: 442.90 mGycm Automated exposure control for dose reduction was used. FINDINGS: Focal hypodensity lateral inferior left temporal lobe partially visualized has an appearance similar to the 04/04/2011 CT probably represents an area of encephalomalacia. Orbits and globes, visualized par anasal sinuses, and mastoid air cells are clear. Rightward nasal septal deviation. Lack of IV contrast limits assessment of the mucosal space within this limitation, the nasopharynx ap pears clear. There is dental amalgam artifact limiting assessment of the oropharynx. Fullness of the bilateral pal atine tonsils in the assessed with direct visualization. The glottic and subglottic airway as well as the tracheal column appear clear. Chest reported separat rosario. The thyroid gland is either atrophic or surgically absent. The submandibular and parotid glands appea r satisfactory. Borderline sized 8mm left submandibular space lymph node. Additional scattered cervical lymph nodes o n both sides measuring up to 8 mm. No supraclavicular lymphadenopathy is identified on this noncontra st study. Bones: Spondylotic change with grade 1 anterolisthesis at C4-C5. Some heterotopic ossification residential director iorly along the midline opposite C5 and C6. IMPRESSION: 1. SOFT TISSUE FULLNESS IN THE REGION OF THE BILATERAL PALATINE TONSILS. THIS CAN BE CORRELATED WITH DIRECT VISUALIZATION. PROBABLE TONSILLAR HYPERTROPHY. 2. AN ASYMMETRIC BORDERLINE-SIZED 8MM LEFT SUBMANDIBULAR SPACE LYMPH NODE CAN BE FOLLOWED CLINICALLY. 3. NO SUSPICIOUS MASS OR LYMPHADENOPATHY IDENTIFIED IN THE LEFT SUPRACLAVICULAR REGION OR ELSEWHERE I N THE NECK.
--- NOTE | 2017-05-25 14:13 | CT ---
EXAMINATION TYPE: CT ChestAbdPelvis wo con DATE OF EXAM: 05/25/2017 COMPARISON: 05/24/2017 and 12/05/2014 HISTORY: 66-year-old female retroperitoneal Lymphadenopathy TECHNIQUE: Contiguous axial scanning of the chest, abdomen, and pelvis without IV contrast. Coronal a nd sagittal reconstructions performed. CT DLP: 1130.0 mGycm Automated exposure control for dose reduction was used. FINDINGS: Chest: Heart is upper limits of normal in size without pericardial effusion. Mild coronary vessel calcificat ions are present. Ascending aortic ectatic at 3.8 cm. Conventional arch vessel branching anatomy. Scattered nonenlarged mediastinal and axillary lymph nodes are present. Some calcified left paratrach eal and left hilar lymph nodes compatible with prior granulomatous disease with a calcified granuloma at the left midlung. Mild emphysematous change and some strandy atelectasis at the peripheral left base. No consolidation or pleural effusion. ABDOMEN: Noncontrast appearance of the liver, adrenal glands, spleen, and mildly atrophic pancreas show no gilles ss abnormality. Retroaortic left renal vein. Cholecystectomy clips. Faint contrast seen still being excreted from the kidneys. Subcentimeter hypodensity lateral upper to midpole left kidney too small for accurate CT characterization, probable cyst. Redemonstrated retroperitoneal lymphadenopathy. Lymph nodes measure up to 1 cm in the gastrohepatic l igament region, 9 mm near the right rocio of the diaphragm, 1.4 cm gastroduodenal, 1.9 cm caval, 1.1 c m retrocaval, 4.8 x 2.9 cm left para-aortic. No dilated small bowel, free fluid, or free air. Normal appendix. Mild to moderate stool. Diffuse colonic diverticulosis. No pericolonic inflammatory change. Pelvis: Previously injected IV contrast has collected in the bladder which is incompletely distended. Uterus surgically absent. Neither ovary is clearly visualized. Pelvic phleboliths. No abnormal fluid collect ion in the pelvis or pelvic lymphadenopathy seen. Bones: Mild degenerative changes at the hips and SI joints. Advanced degenerative changes throughout the lum bar spine with grade 1 retrolistheses at L2-L3 and L3-L4 and grade 1 anterolisthesis at L4-L5. No oss eous destructive process. IMPRESSION: 1. STABLE RETROPERITONEAL LYMPHADENOPATHY MEASURING UP TO 4.8 X 2.9 CM AND ADDITIONAL UPPER ABDOMINAL LYMPHADENOPATHY MEASURING UP TO 1.9 CM. NO OTHER LYMPHADENOPATHY SEEN IN THE THORAX OR PELVIS. LYMPH JOJO AND METASTATIC DISEASE ARE THE PRIMARY DIFFERENTIALS. 2. FAINT CONTRAST SEEN STILL BEING EXCRETED FROM THE KIDNEYS. CORRELATE FOR ACUTE RENAL FAILURE.
[2017-05-25 14:20] LABS: Hemoglobin A1C 8.3 % (4.0-6.0)
[2017-05-25 16:53] LABS: Glucose,Whole Blood 375 mg/dL (75-99)
--- NOTE | 2017-05-25 19:51 | PN ---
PROGRESS NOTE DATE OF SERVICE: 05/25/2017 This 66-year-old woman who was admitted with right-sided chest pain is being closely monitored. Patient also had lymphadenopathy, and a chest, abdomen and pelvis CT scan was done which showed stable retroperitoneal lymphadenopathy measuring up to 4.8 x 2.9 cm and additional upper abdominal lymphadenopathy measuring up to 1.9 cm. Soft tissue neck CT scan showed no suspicious mass at this time. Hematology/Oncology is following the patient closely. A 2D echo with Doppler was done. Cardiology has also seen the patient. Blood sugar is elevated. Two-dimensional with Doppler showed ejection fraction about 50% to 55%. PHYSICAL EXAMINATION: Alert and oriented x3. Pulse is 69, blood pressure 124/70, respiration 18, temperature 98 degrees, pulse ox 98% on room air. HEENT: Conjunctivae normal. NECK: No jugular venous distention. CARDIOVASCULAR SYSTEM: S1, S2 muffled. RESPIRATORY SYSTEM: Breath sounds diminished at the bases. No rhonchi. No crackles. ABDOMEN: Soft, non-tender. No mass palpable. LEGS: No edema. No swelling. NERVOUS SYSTEM: No focal deficit. LABS: Accu-Cheks 318 and 375. ASSESSMENT: 1. Chest pain, right-sided, possible musculoskeletal. Myocardial infarction ruled out. 2. Increased white count. 3. Urinary tract infection. 4. Diabetes mellitus, type 2, poorly controlled. 5. Retroperitoneal and upper abdominal lymphadenopathy. 6. History of congestive heart failure with chronic diastolic dysfunction. 7. Diabetes mellitus, type 2. 8. Hypertension. 9. Sleep apnea. 10.History of closed head injury. 11.History of nephrolithiasis. RECOMMENDATIONS AND DISCUSSION: I recommend to continue current medication, continue symptomatic treatment. Repeat labs. Closely follow with the consultants and increase ambulation. Guarded prognosis. The patient will need followup for the abnormal findings on the CT scan. Further recommendations to follow. MMODL / IJN: [id number] /
[2017-05-25] MEDS: LORATADINE 10 MG TAB PO SCH (19:57)
[2017-05-25 20:06] LABS: Glucose,Whole Blood 258 mg/dL (75-99)
[2017-05-25] MEDS ORDERED: ATORVASTATIN 20 MG TAB PO SCH (21:00)
[2017-05-26 03:11] LABS: Glucose,Whole Blood 125 mg/dL (75-99)
[2017-05-26] MEDS: LEVOTHYROXINE 125 MCG TAB PO SCH (05:32)
[2017-05-26 06:51] LABS: Glucose,Whole Blood 132 mg/dL (75-99)
[2017-05-26 07:57] LABS: Basophils # (A) 0.1 k/uL (0-0.2); Basophils % (A) 1 %; Eosinophils # (A) 0.1 k/uL (0-0.7); Eosinophils % (A) 1 %; HCT 34.4 % (34.0-46.0); HGB 11.1 gm/dL (11.4-16.0); Lymphocytes # (A) 2.4 k/uL (1.0-4.8); Lymphocytes % (A) 20 %; MCHC 32.3 g/dL (31.0-37.0); MCV 83.3 fL (80.0-100.0); Mean Platelet Volume 6.9; Monocytes # (A) 0.6 k/uL (0-1.0); Monocytes % (A) 5 %; Neutrophils # (A) 8.7 k/uL (1.3-7.7); Neutrophils % (A) 71 %; Platelet Count 399 k/uL (150-450); RBC 4.13 m/uL (3.80-5.40); RDW 15.3 % (11.5-15.5); WBC 12.3 k/uL (3.8-10.6)
[2017-05-26 08:01] LABS: Calcium 10.1 mg/dL (8.4-10.2); Potassium 3.4 mmol/L (3.5-5.1)
[2017-05-26 08:26] VITALS: BP 135/63; PULSE 57; RESP 16; TEMP 98
[2017-05-26] MEDS: MULTIVITAMINS, THERA 1 EACH TAB PO SCH (08:51)
[2017-05-26] MEDS: amLODIPine 5 MG TAB PO SCH (08:51)
[2017-05-26] MEDS: LISINOPRIL 20 MG TAB PO SCH (08:52)
[2017-05-26] MEDS: GLIMEPIRIDE 2 MG TAB PO SCH (08:52)
[2017-05-26] MEDS: CHOLECALCIFEROL 1,000 UNIT TAB PO SCH (08:52)
[2017-05-26] MEDS: GABAPENTIN 100 MG CAP PO SCH (08:52)
[2017-05-26] MEDS: POTASSIUM CHLORIDE ER 10 MEQ TAB.ER.PRT PO SCH (08:52)
[2017-05-26] MEDS: INSULIN ASPART 100 UNIT/ML 1 ML 10 ML VIAL SQ SCH ×4 (08:52→12:40)
[2017-05-26] MEDS: metFORMIN 500 MG TAB PO SCH (08:53)
[2017-05-26] MEDS ORDERED: ASPIRIN 81 MG PO SCH (09:00)
[2017-05-26] MEDS ORDERED: FUROSEMIDE 20 MG TAB PO SCH (09:00)
[2017-05-26] MEDS ORDERED: Magnesium Replacement Protocol 1 EACH MISC MISCELLANE PRN (11:29)
[2017-05-26] MEDS ORDERED: Potassium Replacement Protocol 1 EACH MISC MISCELLANE PRN (11:29)
[2017-05-26 12:29] LABS: Glucose,Whole Blood 258 mg/dL (75-99)
[2017-05-26] MEDS: INSULIN DETEMIR 100 UNIT/ML 10 ML VIAL SQ SCH (12:41)
--- NOTE | 2017-05-26 23:01 | DS ---
DISCHARGE SUMMARY DATE OF SERVICE: 05/26/2017. FINAL DIAGNOSES: 1. Chest pain, right-sided, possibly musculoskeletal. Myocardial infarction ruled out. 2. Increased WBC, improved. 3. Urinary tract infection. 4. Diabetes mellitus type 2, poorly controlled. 5. Retroperitoneal and upper abdominal lymphadenopathy for evaluation. 6. History of congestive heart failure with chronic diastolic dysfunction. 7. Hypertension. 8. Sleep apnea. 9. History of closed head injury. 10.History of nephrolithiasis. DISCHARGE DISPOSITION: The patient will be discharged in stable condition with guarded prognosis. HISTORY OF PRESENT ILLNESS: This 66-year-old woman with past multiple history of multiple medical problems is being followed by Dr. Leonard Solano in the outpatient setting, admitted with right-sided chest pain, myocardial infarction ruled out. Cardiology saw the patient and CT scan of the abdomen showed retroperitoneal and upper abdominal lymphadenopathy. Seen by Dr. Gracia, who recommended outpatient followup. Lantus insulin was added for better diabetic control and the patient is recommended to use Lantus and Accu-Cheks a.c. and at bedtime, hold the Lantus if Accu-Cheks less than 120 and to follow up with Dr. Solano in the outpatient setting. EXAM: Vitals are stable. CARDIOVASCULAR: S1, S2 muffled. ABDOMEN: Soft. NERVOUS SYSTEM: Nonfocal. DISCHARGE MEDICATIONS: 1. Diet is cardiac. 2. Activity limited until ru. 3. Follow up with Dr. Leonard Solano in 2-3 days. 4. Follow up with Dr. Gracia as advised. 5. Follow up with Cardiology as recommended. 6. Medications will be: a. Norvasc 5 mg p.o. daily. b. Ecotrin 160 mg p.o. daily. c. Lipitor 40 mg q.h.s. d. Zyrtec 10 mg q.h.s. e. Vitamin D3 1000 daily. f. Lasix 20 mg p.o. daily. g. Gabapentin 1000 mg q.a.m. h. Neurontin 200 mg q.h.s. i. Amaryl 2 mg p.o. a.c. breakfast. j.Levemir 20 units subcu daily and as mentioned earlier, hold if the Accu-Chek was less than 120. k. Synthroid 125 mcg p.o. daily. l. Zestril 20 mg p.o. b.i.d. m. Metformin 1000 mg p.o. b.i.d. n. Multivitamins 1 p.o. daily. o. Klor-Con 10 mg p.o. daily. Once again, the patient will discharged in stable condition with a guarded prognosis. ALKA / ORIANA: [id number] /
== END 2017-05-26 13:35 | disposition home or self-care (01) ==
LOC: EC 16:01 → 3OBS 20:18
PROVIDERS: ADMIT Internal Medicine; ATTEND Internal Medicine
DX: R07.89 Other chest pain (principal); R59.0 Localized enlarged lymph nodes; E11.65 Type 2 diabetes mellitus with hyperglycemia; N39.0 Urinary tract infection, site not specified; R12 Heartburn; T36.8X5A Adverse effect of other systemic antibiotics, initial encounter; I11.0 Hypertensive heart disease with heart failure; I50.32 Chronic diastolic (congestive) heart failure; E78.5 Hyperlipidemia, unspecified; G47.30 Sleep apnea, unspecified; Z99.89 Dependence on other enabling machines and devices; E66.9 Obesity, unspecified; Z68.32 Body mass index [BMI] 32.0-32.9, adult; I25.2 Old myocardial infarction; Z79.84 Long term (current) use of oral hypoglycemic drugs; Z79.82 Long term (current) use of aspirin; Z79.899 Other long term (current) drug therapy; Z88.1 Allergy status to other antibiotic agents; Z91.041 Radiographic dye allergy status; Z88.8 Allergy status to other drugs, medicaments and biological substances; Z91.048 Other nonmedicinal substance allergy status; Z90.49 Acquired absence of other specified parts of digestive tract; Z87.820 Personal history of traumatic brain injury; Z87.442 Personal history of urinary calculi; Z80.3 Family history of malignant neoplasm of breast; Z80.0 Family history of malignant neoplasm of digestive organs
CPT/HCPCS: 99285 ×2; 96374 ×2; 96375 ×3; 96361 ×5; 36415; 93005; 93306; 80061; 80053; 80048 ×2; 85652; 82550 ×2; 82553 ×2; 83735 ×2; 84484 ×2; 85025 ×3; 85610; 85730; 86140; 81003; 87086; 83036; 71046; 70490; 71250; 75635; 71275; 74176; G0378 ×3; J1200; J2930; Q9950; Q9967

== ENCOUNTER → 2017-06-19 | Day surgery (SDC) | payer BC ==
[2017-06-19 10:02] LABS: Mean Platelet Volume 6.6; Platelet Count 447 k/uL (150-450)
[2017-06-19 10:13] VITALS: TEMP 97.8
[2017-06-19 10:21] LABS: INR 0.9 (<1.2); Prothrombin Time 9.3 sec (9.0-12.0)
--- NOTE | 2017-06-19 12:25 | CT ---
EXAMINATION TYPE: CT biopsy abdomen percutabeous, core biopsy and fine-needle aspiration retroperitoneal adenopathy DATE OF EXAM: 06/19/2017 HISTORY: Retroperitoneal lymphadenopathy COMPARISON: NONE Maximal barrier technique was utilized. The skin overlying a suitable path to the retroperitoneal lesion was localized using CT and the overlying skin was prepped and draped. Lidocaine used for local anesthesia. A skin kendall made with a scalpel. Using CT guidance, access was gained to the lesion with a 22- gauge needle through a 17-gauge guide. Aspirated specimen submitted to cytology. 2 core specimens were subsequently obtained with an 18-gauge needle. 3 passes were performed in all. Following the procedure no immediate complications. The patient is discharged in stable condition. Hemostasis achieved. IMPRESSION: SUCCESSFUL CT GUIDED CORE BIOPSY and fine-needle aspiration of retroperitoneal adenopathy. PATHOLOGY PENDING. THIS PROCEDURE WAS PERFORMED BY THE UNDERSIGNED. LEXUS
[2017-06-19 13:00] VITALS: RESP 14
[2017-06-19 13:49] VITALS: BP 107/66; PULSE 79
== END ==
LOC: RADPROMAIN 09:59
PROVIDERS: ATTEND Surgery
DX: C83.83 Other non-follicular lymphoma, intra-abdominal lymph nodes (principal)
CPT/HCPCS: 10022; 38505; 49180; 77012; 85049; 85610; 88173; 88305; 88341; 88342

== ENCOUNTER → 2017-07-01 | Outpatient (CLI) | payer BC ==
--- NOTE | 2017-07-03 11:27 | PE ---
EXAMINATION TYPE: PET CT fusion skull to thigh DATE OF EXAM: 07/01/2017 COMPARISON: 05/16/2018 HISTORY: Lymphoma. Initial staging. TECHNIQUE: Following the intravenous administration of 11.15 mCi of F-18 FDG, whole body images are performed from the skull base to the midthigh. Images are reviewed on the computer in the coronal, a xial, and sagittal planes. Reconstructed rotating images are created on independent workstation and reviewed on the computer. A localization and attenuation correction CT is performed in conjunction with the PET scan. Total exam DLP of 420.01. SCAN: Initial FINDINGS: MEDIASTINAL BACKGROUND: 2.63 ABDOMINAL BACKGROUND: 3.8 SKULL BASE AND NECK: No suspicious hypermetabolic uptake. There is a nonenlarged 7 mm right cervical chain lymph node posterior to the sternocleidomastoid at the level of the true vocal cords and thyro id cartilage that does not exceed mediastinal background with a maximum SUV of 1.98. CHEST, MEDIASTINUM, AND HILAR REGION: No suspicious hypermetabolic uptake. ABDOMEN AND PELVIS: There is somewhat heterogenous uptake within the hepatic parenchyma however more focal uptake is seen within the left hepatic lobe in segment 2 (maximum SUV of 9.87) and within segme nt 4A (maximum SUV of 4.71). Uptake in 4B extending medially into segment 5 is attributable to misreg istration from the adjacent colon hypermetabolic activity throughout the right hemicolon is likely re lated to physiologic excretion. Enhanced CT abdomen is recommended to ensure no underlying hepatic ma ss. On unenhanced images no discrete hepatic masses seen. Right para-aortic 1.0 cm short axis lymph node on series 3 image 128 is hypermetabolic with a maximum SUV of 5.1. Conglomeration of right periaortic lymph nodes measure approximately 2.7 x 3.6 cm on ser ies 3 image 145 and a maximum SUV of 24.73. Conglomeration of left periaortic lymph nodes on series 3 image 150 to measure 4.8 x 3.0 cm, overall unchanged from the prior of 05/25/2017 where this measured 4.8 x 2.9 cm. This conglomeration has a maximum SUV of 8.81. Additionally on the level of the gastroesophageal junction there is a right epigastric superficial ly mph node with a maximum uptake of 10.04. Other scattered nonenlarged nonhypermetabolic lymph nodes ar e seen within the periaortic chain (most notably on series 3 image 165 a lymph node measuring 1 cm in short axis in the left periaortic space has a maximum SUV of 2.33) and in the superficial inguinal r egions. Few nonenlarged nodes are also present within the gastrohepatic region without hypermetabolic uptake. OSSEOUS STRUCTURES: Bilateral glenohumeral arthropathy is overall symmetric with a maximum SUV of 2.4 5 on the right and 2.56 on the left, not above mediastinal background and likely attributable to dege nerative change. The highest area of metabolic activity is seen within the L3 vertebral body with a m aximum SUV of 3.27, not above mediastinal background. Osseous activity is favored to represent degene rative change. OTHER CT: There is redemonstration of an ectatic ascending thoracic aorta upper limits of normal size measuring 3.8 cm, not meeting criteria for aneurysm. Heart is also upper normal limits normal size. Mild coronary artery calcifications are again seen. Few paratracheal and left hilar calcified lymph n odes are seen within the mediastinum. Left lower lobe superior segment calcified pulmonary granulomas present. This is benign. No adenopathy by size criteria. Mild pulmonary emphysema is present. The unenhanced adrenal glands, spleen, pancreas, and right kidney are grossly unremarkable. Probable left renal cyst and surgical absence of the gallbladder are noted. Adenopathy as described above. [place] el is limited without oral contrast but demonstrates diverticulosis. Severe multilevel degenerative c hanges are present throughout the spine with grade 1 retrolisthesis of L2 on L3 and L3 on L4 and grad e 1 anterolisthesis of L4 on L5. IMPRESSION: 1. Infradiaphragmatic hypermetabolic adenopathy in keeping with the patient's history of known lympho ma. There is marked avidity within the periaortic chain lymph nodes with a maximum SUV of 24.73 in co mparison to the abdominal background of 3.8 compatible with a Deauville 5 score and WHO grade II. How ever see the below findings 4 questionable involvement of the extralymphatic sites. 2. Multifocal hepatic hypermetabolic uptake without identifiable mass on nonenhanced imaging. Dynamic enhanced CT or MR is recommended for further evaluation.
== END ==
LOC: RADPETMAIN 09:47
PROVIDERS: ATTEND Internal Medicine Hematology & Oncology
DX: C85.93 Non-Hodgkin lymphoma, unspecified, intra-abdominal lymph nodes (principal)
CPT/HCPCS: 78815; A9552

== ENCOUNTER → 2017-07-25 | Outpatient (CLI) | payer BC ==
--- NOTE | 2017-07-25 22:59 | MR ---
EXAMINATION TYPE: MR liver wo/w con DATE OF EXAM: 07/25/2017 COMPARISON: PET/CT July 01, 2017. CT chest abdomen and pelvis May 25, 2017 and older CTs. HISTORY: history of known lymphoma recently diagnosed on biopsy June 19, 2017, with liver lesion or abnormal PET/CT. CONTRAST: Standard multiplanar, multisequence MRI departmental protocol utilizing 7.5 mL intravenous Gadavist g adolinium contrast. FINDINGS: Liver: There is diffuse signal dropout consistent with fatty infiltration as seen on prior CTs. Liver is normal in size. There are multiple round lesions of T1 hypointensity and T2 hyperintens ity scattered throughout the liver on MRI not clearly seen on noncontrast CT. One of the larger lesio ns correspond to hypermetabolic lesion in the lateral segment left hepatic lobe anteriorly in [place] segment 2 seen for reference coronal image 10. Majority of these lesions show irregular peripheral enhancement without definitive nodular centripetal progression on more delayed dynamic images. No intrahepatic ductal dilatation is seen. Gallbladder is noted surgically absent. Other : Mild cardiomegaly is redemonstrated. The spleen and pancreas are normal in size. Both adrena l glands are normal in size. There are simple appearing 1.2 cm cyst laterally upper pole of the left kidney seen best image 12 series 501 redemonstrated. There is redemonstration of scattered diverticul a throughout the colon. Some enlarged upper abdominal lymph nodes remain present anterior to IVC near portal vein. Multilevel spurring in the spine is seen. 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 Correlate clinically and with recent colonoscopy if has not been perfor med would advise.
== END | disposition home or self-care (01) ==
LOC: RADMRIMAIN 20:11
PROVIDERS: ATTEND Internal Medicine Hematology & Oncology
DX: K76.9 Liver disease, unspecified (principal); R94.8 Abnormal results of function studies of other organs and systems
CPT/HCPCS: 82565; 74183; 36415; A9581

== ENCOUNTER → 2017-08-08 | Day surgery (SDC) | payer BC, MEDICARE ==
[~2017-08-08] MED LIST: MORPHINE SULFATE 2 MG/ML SYRINGE IVP STA; MORPHINE SULFATE 4 MG/ML SYRINGE IVP PRN; MORPHINE SULFATE 4 MG/ML SYRINGE IVP STA
[2017-08-08 08:46] LABS: Mean Platelet Volume 6.8; Platelet Count 389 k/uL (150-450)
[2017-08-08 08:51] LABS: INR 0.9 (<1.2); Prothrombin Time 9.3 sec (9.0-12.0)
[2017-08-08 09:13] VITALS: TEMP 98.1
[2017-08-08 10:14] VITALS: RESP 16
[2017-08-08 13:01] LABS: Glucose,Whole Blood 127 mg/dL (75-99)
--- NOTE | 2017-08-08 14:37 | US ---
EXAMINATION TYPE: US biopsy liver DATE OF EXAM: 08/08/2017 HISTORY: Multiple liver masses. FINDINGS: Maximal barrier technique was utilized. The skin overlying a suitable path to the patient' s right lobe liver mass was localized with ultrasound and the overlying skin prepped and draped. Ult rasound was utilized with sterile technique. Lidocaine was used for local anesthesia. A skin kendall w as made with a scalpel. An 17-gauge needle was advanced under direct ultrasound guidance, 18-gauge n eedle advanced coaxially and core specimen obtained of the mass. Specimen submitted in formalin to P athology. Following the procedure, hemostasis achieved and the patient is discharged in stable condi tion without complication. IMPRESSION:STATUS POST ULTRASOUND GUIDED CORE BIOPSY OF right lobe liver MASS, PATHOLOGY IS PENDING. THIS PROCEDURE IS PERFORMED BY THE UNDERSIGNED.
[2017-08-08 15:07] VITALS: BP 101/52; PULSE 72
== END | disposition home or self-care (01) ==
LOC: RADPROMAIN 08:00
PROVIDERS: ATTEND Internal Medicine Hematology & Oncology
DX: R16.0 Hepatomegaly, not elsewhere classified (principal)
CPT/HCPCS: 85049; 85610; 88342; 88307; 88341; 36415; 47000; 76942; J2270

== ENCOUNTER 2017-08-28 07:03 | Day surgery (SDC) | payer MEDICARE ==
[2017-08-24 12:46] VITALS: BMI 29.9
[~2017-08-28 07:03] MED LIST changes: +LACTATED RINGERS 1,000 ML IV SCH; -MORPHINE SULFATE 2 MG/ML SYRINGE IVP STA; -MORPHINE SULFATE 4 MG/ML SYRINGE IVP PRN; -MORPHINE SULFATE 4 MG/ML SYRINGE IVP STA; +Pre Op ABX Message 1 EACH MISC MISCELLANE ONE
[2017-08-28 07:24] VITALS: RESP 18; TEMP 97.8
[2017-08-28] MEDS ORDERED: LACTATED RINGERS 1,000 ML IV ONE (07:24)
[2017-08-28] MEDS ORDERED: LIDOCAINE 1% 20 ML VIAL (10MG/ML) FOR IV START INTRADERMA ONE (07:24)
[2017-08-28 07:28] LABS: Glucose,Whole Blood 184 mg/dL (75-99)
[2017-08-28] MEDS ORDERED: LIDOCAINE 1% INJ 10MG/ML (20 ML MDV) ONE (08:33)
[2017-08-28] MEDS ORDERED: fentaNYL (PF) 50 MCG/ML 2 ML AMP ONE (08:33)
[2017-08-28] MEDS ORDERED: PROPOFOL 10 MG/ML 20 ML VIAL IV ONE (08:33)
--- NOTE | 2017-08-28 09:16 | P.PCN ---
Date of Procedure: 08/28/17 Preoperative Diagnosis: Non- Hodgkins Lymphoma Postoperative Diagnosis: Same Procedure(s) Performed: Bone marrow aspiration and biopsy Anesthesia: MAC Surgeon: Wicho Gracia Truck Trailer Final Inspector #1: Stated None Truck Trailer Final Inspector #2: Stated None Estimated Blood Loss (ml): 2 Pathology: other Condition: stable Disposition: same day Indications for Procedure: Low grade non-Hodgkin's lymphoma. Bone marrow aspiration biopsies been done for staging Operative Findings: Adequate samples Description of Procedure: The procedure was explained in detail to the patient in the office. She presented to the outpatient endoscopy suite where IV access and informed consent were obtained. She was then placed in the left lateral defer disposition. The area over both posterior iliac crest was cleaned and prepped with chlorhexidine and sterile draping. IV sedation was then initiated. Local anesthesia was administered with lidocaine to the right posterior hilar crest. A Jamshidi needle was then inserted and bone marrow aspirate and biopsy obtained. On the first pass, biopsy sample was not present. Therefore an additional pass was made with a biopsy specimen obtained this time. Hemostasis was easily achieved optimal drawn of the needle. Blood loss was minimal and recovery from sedation was satisfactory. She appeared to have tolerated the procedure well without any obvious mediate competitions.
[2017-08-28 09:50] VITALS: BP 107/52; PULSE 70
[2017-08-28 11:02] LABS: Basophils # (A) 0.1 k/uL (0-0.2); Basophils % (A) 1 %; Eosinophils # (A) 0.5 k/uL (0-0.7); Eosinophils % (A) 4 %; HCT 36.5 % (34.0-46.0); HGB 11.7 gm/dL (11.4-16.0); Hypochromasia Slight; Lymphocytes # (A) 1.5 k/uL (1.0-4.8); Lymphocytes % (A) 13 %; MCH 26.3 pg (25.0-35.0); MCV 82.3 fL (80.0-100.0); Mean Platelet Volume 7.5; Monocytes # (A) 1.1 k/uL (0-1.0); Monocytes % (A) 10 %; Neutrophils % (A) 70 %; Platelet Count 492 k/uL (150-450); RBC 4.43 m/uL (3.80-5.40); RDW 15.8 % (11.5-15.5); WBC 11.5 k/uL (3.8-10.6)
== END 2017-08-28 10:01 | disposition home or self-care (01) ==
LOC: OR 07:03
PROVIDERS: ATTEND Internal Medicine Hematology & Oncology
DX: C85.13 Unspecified B-cell lymphoma, intra-abdominal lymph nodes (principal); I50.9 Heart failure, unspecified; E11.9 Type 2 diabetes mellitus without complications; E89.0 Postprocedural hypothyroidism; K75.9 Inflammatory liver disease, unspecified; G47.33 Obstructive sleep apnea (adult) (pediatric); Z99.89 Dependence on other enabling machines and devices; Z90.710 Acquired absence of both cervix and uterus; Z90.49 Acquired absence of other specified parts of digestive tract; Z79.84 Long term (current) use of oral hypoglycemic drugs; Z79.890 Hormone replacement therapy; Z79.899 Other long term (current) drug therapy; Z79.1 Long term (current) use of non-steroidal anti-inflammatories (NSAID); Z79.82 Long term (current) use of aspirin; Z79.891 Long term (current) use of opiate analgesic; Z88.1 Allergy status to other antibiotic agents; Z88.8 Allergy status to other drugs, medicaments and biological substances; Z91.048 Other nonmedicinal substance allergy status; Z91.09 Other allergy status, other than to drugs and biological substances
CPT/HCPCS: 85025; 38221; J2001; J3010; J2704

== ENCOUNTER 2017-10-21 18:00 | Inpatient (IN) | payer MEDICARE, OTHER ==
[2017-10-21 18:13] LABS: Glucose,Whole Blood 73 mg/dL (75-99)
[2017-10-21] MEDS ORDERED: SODIUM CHLORIDE 0.9% 1,000 ML IV STA (18:19)
--- NOTE | 2017-10-21 18:49 | ED ---
General Adult HPI - General Chief complaint: Weakness Stated complaint: lethargic Time Seen by Provider: 10/21/17 18:18 Source: patient, EMS, RN notes reviewed Mode of arrival: EMS Limitations: no limitations - History of Present Illness Initial comments: 67-year-old female presents emergency Department via EMS with multiple complaints. Patient states she's had generalized weakness over the last 3-4 weeks which has worsened she states that she sleeps mostly today because she has no energy. She states that she's been having increased difficulty ambulating states that she is very unsteady with her gait and requires the use of assistive device at this time. Patient states that today she developed worsening symptoms including severe nausea and had vomiting just prior to EMS arriving. Patient also complained that she had some mild chest discomfort and she did state that it's been intermittent. Patient denies any known fever, chills. She states that she just says generalized fatigue. She states that she has no appetite that her blood sugars have been labile. Patient denies any focal weakness. She has no current headache. Patient does state that she has been diagnosed with stage IV non-Hodgkin's lymphoma by Dr. sanchez. Patient states she has no current treatment. - Related Data Home Medications Medication Instructions Recorded Confirmed Furosemide 20 mg PO BID 09/19/13 08/24/17 Gabapentin 100 mg PO QAM 09/19/13 08/24/17 Lisinopril [Zestril] 20 mg PO HS 09/19/13 08/24/17 Potassium Chloride [Klor-Con 10] 10 meq PO DAILY 09/19/13 08/24/17 Aspirin 162 mg PO DAILY 12/05/14 08/24/17 Gabapentin [Neurontin] 200 mg PO HS 12/05/14 08/24/17 Levothyroxine Sodium [Synthroid] 125 mcg PO [id number] 12/05/14 08/24/17 amLODIPine [Norvasc] 5 mg PO QAM 12/05/14 08/24/17 metFORMIN HCL 1,000 mg PO BID 12/05/14 08/24/17 Cetirizine HCl [Zyrtec] 10 mg PO HS 05/24/17 08/24/17 Cholecalciferol [Vitamin D3] 1,000 unit PO DAILY 05/24/17 08/24/17 Glimepiride [Amaryl] 2 mg PO AC-BRKFST 05/24/17 08/24/17 Multivitamins, Thera [Multivitamin 1 tab PO DAILY 05/24/17 08/24/17 (formulary)] ALPRAZolam [Xanax] 1 mg PO DAILY PRN 06/12/17 08/24/17 Atorvastatin Calcium [Lipitor] 20 mg PO HS 06/12/17 08/24/17 HYDROcodone/APAP 7.5-325MG [Loa 1 tab PO Q6HR PRN 06/12/17 08/24/17 7.5-325] Naproxen Sodium [Aleve] 220 mg PO Q48H PRN 08/24/17 08/24/17 Allergies Allergy/AdvReac Type Severity Reaction Status Date / Time haloperidol [From Haldol] Allergy Unknown Verified 10/21/17 18:07 haloperidol lactate Allergy Unknown Verified 10/21/17 18:07 [From Haldol] Iodinated Contrast- Oral and Allergy Rash/Hives Verified 10/21/17 18:07 IV Dye [Iodinated Contrast Media - IV Dye] adhesive AdvReac Severe sores Verified 10/21/17 18:07 ciprofloxacin [From Cipro] AdvReac Heartburn Verified 10/21/17 18:07 steri-strips AdvReac Severe sore Uncoded 10/21/17 18:07 Review of Systems ROS Statement: Those systems with pertinent positive or pertinent negative responses have been documented in the HPI. ROS Other: All systems not noted in ROS Statement are negative. 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 Hx of kidney stones. Recent diagnosis of B cell non-hodgkins lymphona and liver biopsy with 8 lesions seen on liver. CPAP use. Had thyroidectomy. Patient states she has NOT had [place]. Last Myocardial Infarction Date:: 1988 History of Any Multi-Drug Resistant Organisms: None Reported Past Surgical History: Cholecystectomy, Hysterectomy, Tonsillectomy Additional Past Surgical History / Comment(s): Thyroidectomy. Past Anesthesia/Blood Transfusion Reactions: Postoperative Nausea & Vomiting ( PONV) Past Psychological History: Anxiety Smoking Status: Never smoker Past Alcohol Use History: None Reported Past Drug Use History: None Reported - Past Family History Mother Family Medical History: Cancer Additional Family Medical History / Comment(s): breast CA Father Family Medical History: Cancer Additional Family Medical History / Comment(s): colon CA Sister(s) Family Medical History: Cancer Additional Family Medical History / Comment(s): Skin cancer General Exam Limitations: no limitations General appearance: alert, in no apparent distress Head exam: Present: atraumatic, normocephalic, normal inspection Eye exam: Present: normal appearance, PERRL, EOMI. Absent: scleral icterus, conjunctival injection, periorbital swelling ENT exam: Present: normal exam, normal oropharynx, mucous membranes moist, TM's normal bilaterally Neck exam: Present: normal inspection, full ROM. Absent: tenderness, meningismus, lymphadenopathy Respiratory exam: Present: normal lung sounds bilaterally. Absent: respiratory distress, wheezes, rales, rhonchi, stridor Cardiovascular Exam: Present: regular rate, normal rhythm, normal heart sounds. Absent: systolic murmur, diastolic murmur, rubs, gallop, clicks GI/Abdominal exam: Present: soft, normal bowel sounds. Absent: distended, tenderness, guarding, rebound, rigid Extremities exam: Present: normal inspection, full ROM, normal capillary refill. Absent: tenderness, pedal edema, joint swelling, calf tenderness Neurological exam: Present: alert, oriented X3, CN II-XII intact, reflexes normal. Absent: motor sensory deficit Skin exam: Present: warm, dry, intact, normal color. Absent: rash Course Vital Signs 10/21/17 10/21/17 18:02 19:28 Temperature 97.7 F Pulse Rate 70 88 Respiratory 18 16 Rate Blood Pressure 108/64 117/57 O2 Sat by Pulse 96 96 Oximetry EKG Findings - EKG Comments: EKG Findings:: EKG performed at 19:37 sinus rhythm with a rate of 82 SD 182 QRS 90 QT/QTC 384/448 Medical Decision Making - Medical Decision Making 67-year-old female presented for multiple complaints. Patient has progressive weakness, unsteady gait, chest discomfort, nausea vomiting. Patient will be admitted for observation, repeat cardiac enzymes - Lab Data Result diagrams: 10/21/17 18:10 10/21/17 18:10 Lab Results 10/21/17 10/21/17 10/21/17 Range/Units 18:09 18:10 18:10 WBC 13.2 H (3.8-10.6) k/uL RBC 4.33 (3.80-5.40) m/uL Hgb 10.6 L (11.4-16.0) gm/dL Hct 34.6 (34.0-46.0) % MCV 79.9 L (80.0-100.0) fL MCH 24.4 L (25.0-35.0) pg MCHC 30.5 L (31.0-37.0) g/dL RDW 17.0 H (11.5-15.5) % Plt Count 510 H (150-450) k/uL Neutrophils % (Manual) 75 % Lymphocytes % (Manual) 12 % Monocytes % (Manual) 11 % Eosinophils % (Manual) 2 % Neutrophils # (Manual) 9.90 H (1.3-7.7) k/uL Lymphocytes # (Manual) 1.58 (1.0-4.8) k/uL Monocytes # (Manual) 1.45 H (0-1.0) k/uL Eosinophils # (Manual) 0.26 (0-0.7) k/uL Nucleated RBCs 0 (0-0) /100 WBC Manual Slide Review Performed Hypochromasia Moderate Anisocytosis Slight Microcytosis Slight PT (9.0-12.0) sec INR (<1.2) APTT (22.0-30.0) sec Sodium (137-145) mmol/L Potassium (3.5-5.1) mmol/L Chloride (98-107) mmol/L Carbon Dioxide (22-30) mmol/L Anion Gap mmol/L BUN (7-17) mg/dL Creatinine (0.52-1.04) mg/dL Est GFR (CKD-EPI)AfAm (>60 ml/min/1.73 sqM) Est GFR (CKD-EPI)NonAf (>60 ml/min/1.73 sqM) Glucose (74-99) mg/dL POC Glucose (mg/dL) 73 L (75-99) mg/dL POC Glu Auxiliary Equipment Tender ID Salgat, Rhina Calcium (8.4-10.2) mg/dL Total Bilirubin (0.2-1.3) mg/dL AST (14-36) U/L ALT (9-52) U/L Alkaline Phosphatase (38-126) U/L Total Creatine Kinase <20 L (30-135) U/L CK-MB (CK-2) <0.2 (0.0-2.4) ng/mL CK-MB (CK-2) Rel Index Troponin I <0.012 (0.000-0.034) ng/mL NT-Pro-B Natriuret Pep pg/mL Total Protein (6.3-8.2) g/dL Albumin (3.5-5.0) g/dL Urine Color Urine Appearance (Clear) Urine pH (5.0-8.0) Ur Specific Exira (1.001-1.035) Urine Protein (Negative) Urine Glucose (UA) (Negative) Urine Ketones (Negative) Urine Blood (Negative) Urine Nitrite (Negative) Urine Bilirubin (Negative) Urine Urobilinogen (<2.0) mg/dL Ur Leukocyte Esterase (Negative) Urine WBC (0-5) /hpf Ur Squamous Epith Cells (0-4) /hpf Urine Bacteria (None) /hpf Urine Mucus (None) /hpf 10/21/17 10/21/17 10/21/17 Range/Units 18:10 18:10 18:10 WBC (3.8-10.6) k/uL RBC (3.80-5.40) m/uL Hgb (11.4-16.0) gm/dL Hct (34.0-46.0) % MCV (80.0-100.0) fL MCH (25.0-35.0) pg MCHC (31.0-37.0) g/dL RDW (11.5-15.5) % Plt Count (150-450) k/uL Neutrophils % (Manual) % Lymphocytes % (Manual) % Monocytes % (Manual) % Eosinophils % (Manual) % Neutrophils # (Manual) (1.3-7.7) k/uL Lymphocytes # (Manual) (1.0-4.8) k/uL Monocytes # (Manual) (0-1.0) k/uL Eosinophils # (Manual) (0-0.7) k/uL Nucleated RBCs (0-0) /100 WBC Manual Slide Review Hypochromasia Anisocytosis Microcytosis PT 9.5 (9.0-12.0) sec INR 1.0 (<1.2) APTT 19.9 L (22.0-30.0) sec Sodium 140 (137-145) mmol/L Potassium 4.8 (3.5-5.1) mmol/L Chloride 101 (98-107) mmol/L Carbon Dioxide 26 (22-30) mmol/L Anion Gap 13 mmol/L BUN 27 H (7-17) mg/dL Creatinine 1.10 H (0.52-1.04) mg/dL Est GFR (CKD-EPI)AfAm 61 (>60 ml/min/1.73 sqM) Est GFR (CKD-EPI)NonAf 53 (>60 ml/min/1.73 sqM) Glucose 73 L (74-99) mg/dL POC Glucose (mg/dL) (75-99) mg/dL POC Glu Auxiliary Equipment Tender ID Calcium 12.0 H (8.4-10.2) mg/dL Total Bilirubin 0.6 (0.2-1.3) mg/dL AST 31 (14-36) U/L ALT 29 (9-52) U/L Alkaline Phosphatase 254 H (38-126) U/L Total Creatine Kinase (30-135) U/L CK-MB (CK-2) (0.0-2.4) ng/mL CK-MB (CK-2) Rel Index Troponin I (0.000-0.034) ng/mL NT-Pro-B Natriuret Pep 70 pg/mL Total Protein 7.0 (6.3-8.2) g/dL Albumin 3.8 (3.5-5.0) g/dL Urine Color Urine Appearance (Clear) Urine pH (5.0-8.0) Ur Specific Exira (1.001-1.035) Urine Protein (Negative) Urine Glucose (UA) (Negative) Urine Ketones (Negative) Urine Blood (Negative) Urine Nitrite (Negative) Urine Bilirubin (Negative) Urine Urobilinogen (<2.0) mg/dL Ur Leukocyte Esterase (Negative) Urine WBC (0-5) /hpf Ur Squamous Epith Cells (0-4) /hpf Urine Bacteria (None) /hpf Urine Mucus (None) /hpf 10/21/17 Range/Units 19:37 WBC (3.8-10.6) k/uL RBC (3.80-5.40) m/uL Hgb (11.4-16.0) gm/dL Hct (34.0-46.0) % MCV (80.0-100.0) fL MCH (25.0-35.0) pg MCHC (31.0-37.0) g/dL RDW (11.5-15.5) % Plt Count (150-450) k/uL Neutrophils % (Manual) % Lymphocytes % (Manual) % Monocytes % (Manual) % Eosinophils % (Manual) % Neutrophils # (Manual) (1.3-7.7) k/uL Lymphocytes # (Manual) (1.0-4.8) k/uL Monocytes # (Manual) (0-1.0) k/uL Eosinophils # (Manual) (0-0.7) k/uL Nucleated RBCs (0-0) /100 WBC Manual Slide Review Hypochromasia Anisocytosis Microcytosis PT (9.0-12.0) sec INR (<1.2) APTT (22.0-30.0) sec Sodium (137-145) mmol/L Potassium (3.5-5.1) mmol/L Chloride (98-107) mmol/L Carbon Dioxide (22-30) mmol/L Anion Gap mmol/L BUN (7-17) mg/dL Creatinine (0.52-1.04) mg/dL Est GFR (CKD-EPI)AfAm (>60 ml/min/1.73 sqM) Est GFR (CKD-EPI)NonAf (>60 ml/min/1.73 sqM) Glucose (74-99) mg/dL POC Glucose (mg/dL) (75-99) mg/dL POC Glu Auxiliary Equipment Tender ID Calcium (8.4-10.2) mg/dL Total Bilirubin (0.2-1.3) mg/dL AST (14-36) U/L ALT (9-52) U/L Alkaline Phosphatase (38-126) U/L Total Creatine Kinase (30-135) U/L CK-MB (CK-2) (0.0-2.4) ng/mL CK-MB (CK-2) Rel Index Troponin I (0.000-0.034) ng/mL NT-Pro-B Natriuret Pep pg/mL Total Protein (6.3-8.2) g/dL Albumin (3.5-5.0) g/dL Urine Color Yellow Urine Appearance Cloudy H (Clear) Urine pH 5.5 (5.0-8.0) Ur Specific [place] 1.020 (1.001-1.035) Urine Protein Trace H (Negative) Urine Glucose (UA) Negative (Negative) Urine Ketones Negative (Negative) Urine Blood Negative (Negative) Urine Nitrite Negative (Negative) Urine Bilirubin Negative (Negative) Urine Urobilinogen 2.0 (<2.0) mg/dL Ur Leukocyte Esterase Moderate H (Negative) Urine WBC 4 (0-5) /hpf Ur Squamous Epith Cells 7 H (0-4) /hpf Urine Bacteria Rare H (None) /hpf Urine Mucus Moderate H (None) /hpf Disposition Clinical Impression: Weakness, Chest pain, Non Hodgkin's lymphoma, Anemia, Unsteady gait Disposition: ADMITTED IP TO THIS [facility] Condition: Fair Referrals: Leonard Solano MD [Primary Care Provider] - 1-2 days
[2017-10-21 18:59] LABS: Anisocytosis Slight; HCT 34.6 % (34.0-46.0); HGB 10.6 gm/dL (11.4-16.0); Hypochromasia Moderate; MCH 24.4 pg (25.0-35.0); MCHC 30.5 g/dL (31.0-37.0); MCV 79.9 fL (80.0-100.0); Mean Platelet Volume 7.3; Microcytosis Slight; Platelet Count 510 k/uL (150-450); RBC 4.33 m/uL (3.80-5.40); WBC 13.2 k/uL (3.8-10.6)
[2017-10-21 19:08] LABS: Albumin 3.8 g/dL (3.5-5.0); Potassium 4.8 mmol/L (3.5-5.1); Total Bilirubin 0.6 mg/dL (0.2-1.3)
[2017-10-21 19:14] LABS: Eosinophils # (M) 0.26 k/uL (0-0.7); Lymphocytes # (M) 1.58 k/uL (1.0-4.8); Monocytes # (M) 1.45 k/uL (0-1.0); Neutrophils % (M) 75 %; Nucleated Red Blood Cells 0 /100 WBC (0-0); Total Cells Counted 100
[2017-10-21 19:23] LABS: Prothrombin Time 9.5 sec (9.0-12.0)
[2017-10-21 19:26] LABS: Creatine Kinase <20 U/L (30-135)
[2017-10-21] MEDS ORDERED: HYDROcodone/APAP 7.5-325MG 1 EACH TAB PO ONE (19:27)
[2017-10-21 19:35] LABS: Partial Thromboplastin Time 19.9 sec (22.0-30.0)
--- NOTE | 2017-10-21 19:38 | XR ---
EXAMINATION TYPE: XR chest 2V DATE OF EXAM: 10/21/2017 COMPARISON: Right chest x-ray 05/24/2017 HISTORY: Weakness, fatigue and nausea TECHNIQUE: Frontal and lateral views of the chest are obtained. FINDINGS: There is no change in focal air space opacity, pleural effusion, or pneumothorax seen. Nod ular density in the left upper lobe is stable and is calcified. The cardiac silhouette size is stable , borderline enlarged. The osseous structures are intact. IMPRESSION: No acute cardiopulmonary process.
[2017-10-21 19:39] LABS: Creatine Kinase MB <0.2 ng/mL (0.0-2.4); Troponin I <0.012 ng/mL (0.000-0.034)
--- NOTE | 2017-10-21 19:43 | CT ---
EXAMINATION TYPE: CT brain wo con DATE OF EXAM: 10/21/2017 COMPARISON: Prior head CT 07/16/2012 HISTORY: Weakness. CT DLP: 866.2 mGycm Automated exposure control for dose reduction was used. Helical acquisition through the brain FINDINGS: No interval change. Focal encephalomalacia present in the left upper lobe is unchanged. There is ilda ical atrophy. There is encephalomalacia also present in the left frontal lobe, periventricular white matter shows patchy low attenuation. Orbits show symmetric appearance. Calvarium is intact. No hemorr geraldo or hydrocephalus. Mastoid air cells, paranasal sinuses as visualized are normal. IMPRESSION: NO ACUTE ABNORMALITY. CHRONIC FINDINGS ABOVE.
[2017-10-21 19:59] LABS: Appearance,Urine Cloudy (Clear); Bacteria,Urine Rare /hpf; Bilirubin,Urine Negative (Negative); Blood,Urine Negative (Negative); Color,Urine Yellow; Glucose,Urine (UA) Negative (Negative); Ketones,Urine Negative (Negative); Leukocyte Esterase,Urine Moderate (Negative); Mucus,Urine Moderate /hpf; Nitrite,Urine Negative (Negative); PH, Urine 5.5 (5.0-8.0); Protein,Urine Trace (Negative); Squamous Epithelial Cell,Urine 7 /hpf (0-4); WBC,Urine 4 /hpf (0-5)
[2017-10-21] MEDS ORDERED: NITROGLYCERIN SL TABS 0.4 MG TAB SUBLINGUAL PRN (20:02)
[2017-10-21] MEDS ORDERED: ALPRAZolam 1 MG TAB PO PRN (20:04)
[2017-10-21] MEDS ORDERED: HEPARIN SODIUM,PORCINE 5,000 UNIT/ML 1 ML VIAL IV STA (20:06)
[2017-10-21] MEDS ORDERED: HEPARIN SOD,PORK IN 0.45% NACL 25,000 UNIT in 0.45% NACL 1 500ML.BAG IV SCH (20:15)
[2017-10-21 22:08] VITALS: BMI 28.7
[2017-10-21] MEDS: LISINOPRIL 20 MG TAB PO SCH (22:09)
[2017-10-21 22:16] LABS: Glucose,Whole Blood 122 mg/dL (75-99)
[2017-10-21] MEDS: FUROSEMIDE 20 MG TAB PO SCH (22:16)
[2017-10-21] MEDS: GABAPENTIN 100 MG CAP PO SCH (22:17)
[2017-10-21] MEDS: metFORMIN 500 MG TAB PO SCH (22:17)
[2017-10-22 01:50] LABS: Creatine Kinase <20 U/L (30-135)
[2017-10-22 02:03] LABS: Creatine Kinase MB <0.2 ng/mL (0.0-2.4); Troponin I <0.012 ng/mL (0.000-0.034)
[2017-10-22 03:00] LABS: Cholesterol 127 mg/dL (<200); HDL Cholesterol 29 mg/dL (40-60); LDL Cholesterol,Calculated 70 mg/dL (0-99); Triglycerides 139 mg/dL (<150)
[2017-10-22 07:05] LABS: Glucose,Whole Blood 92 mg/dL (75-99)
[2017-10-22 07:53] LABS: Creatine Kinase <20 U/L (30-135)
[2017-10-22 08:06] LABS: Creatine Kinase MB <0.2 ng/mL (0.0-2.4); Troponin I <0.012 ng/mL (0.000-0.034)
[2017-10-22] MEDS ORDERED: ASPIRIN 325 MG TAB PO SCH (09:00)
[2017-10-22] MEDS: amLODIPine 5 MG TAB PO SCH (09:15)
[2017-10-22] MEDS: FUROSEMIDE 20 MG TAB PO SCH ×2 (09:15→20:15)
[2017-10-22] MEDS: GABAPENTIN 100 MG CAP PO SCH ×2 (09:15→20:16)
[2017-10-22] MEDS: POTASSIUM CHLORIDE ER 10 MEQ TAB.ER.PRT PO SCH (09:16)
--- NOTE | 2017-10-22 09:57 | P.CRDCN ---
History of Present Illness History of present illness: This is a pleasant 67-year-old female past medical history significant for diabetes mellitus, dyslipidemia, hypertension, diastolic dysfunction, obstructive sleep apnea and was recently diagnosed with non-Hodgkin 's lymphoma stage IV per Dr. Gracia a month and a half ago. She denies history of coronary artery disease and is followed with a cellar worker out of town once or twice but has not seen anybody in the previous 5-6 years. We have been asked to see her in consultation for symptoms of chest pain. Upon evaluation of the patient she denies ever having had any symptoms of chest discomfort. She states she came to the hospital because for the previous month she has had increased weakness and fatigue. She states she sleeps approximately 20 hours per day. She has also been struggling with blood sugars her blood sugar will drop. Low to the 40-50 range and then will spike very high up to 200. She denies symptoms of chest pain, shortness of breath, dizziness, nausea, vomiting or diaphoresis. She states approximately 5-6 years ago she had an outpatient stress test that was abnormal and for that reason she underwent cardiac catheterization which she states was slava and she receivedstents at that time l. His records are unavailable to me at this time. She was started on IV heparin infusion upon admission. EKG reveals sinus mechanism with first-degree AV block and nonspecific ST abnormalities noted. No acute ST or T-wave changes. No changes from previous EKGs. Chest x-ray is negative for an acute cardiopulmonary process. CT brain negative for an acute process. Laboratory data reviewed, WBC 13.2, hemoglobin 10.6, platelets 510, sodium 140, potassium 4.8, creatinine 1.1, proBNP 70, cardiac enzymes negative 3, LDL 70 and HDL 29. Most recent echocardiogram performed April 2017 reveals preserved left ventricular systolic function with ejection fraction 50-55%, mild TR noted. Current cardiac medications include Lasix 20 mg twice a day, atorvastatin 20 mg daily, lisinopril 20 mg daily, amlodipine 5 mg daily, aspirin 162 mg daily. She also takes Synthroid, Zyrtec, Neurontin, metformin, Amaryl the [place] and Xanax. At the time of my exam: CONSTITUTIONAL: Denies fever. Denies chills. EYES: Denies blurred vision. Denies vision changes. Denies eye pain. EARS, NOSE, MOUTH & THROAT: Denies headache. Denies sore throat. Denies ear pain. CARDIOVASCULAR: Denies chest pain. Denies shortness of breath. Denies orthopnea. Denies PND. Denies palpitations. RESPIRATORY: Denies cough. GASTROINTESTINAL: Denies abdominal pain. Denies diarrhea. Denies constipation. Denies nausea. Denies vomiting. MUSCULOSKELETAL: Denies myalgias. INTEGUMENTARY: Denies pruitis. Denies rash. NEUROLOGIC: Denies numbness. Denies tingling. Denies weakness. PSYCHIATRIC: Denies anxiety. Denies depression. ENDOCRINE: Complains of fatigue. Complains of 4 pound weight loss. Denies polydipsia. Denies polyurina. GENITOURINARY: Denies burning, hematuria or urgency with micturation. HEMATOLOGIC: Denies history of anemia. Denies bleeding. Blood pressure 119/69 heart rate 72 afebrile maintaining oxygen saturation on room air GENERAL: This is a 67-year-old female in no apparent distress at the time of my examination. HEENT: Head is atraumatic, normocephalic. Pupils are equal, round. Sclerae anicteric. Conjunctivae are clear. Mucous membranes of the mouth are moist. Neck is supple. There is no jugular venous distention. No carotid bruit is heard. LUNGS: Clear to auscultation no wheezes, rales or rhonchi. No chest wall tenderness is noted on palpation or with deep breathing. HEART: Regular rate and rhythm without murmurs, rubs or gallops. S1 and S2 heard. ABDOMEN: Soft, nontender. Bowel sounds are heard. No organomegaly noted. EXTREMITIES: No evidence of peripheral edema and no calf tenderness noted. VASCULAR: Radial and dorsalis pedis pulses palpated, no evidence of clubbing. NEUROLOGIC: Patient is awake, alert and oriented x3. ASSESSMENT Generalized weakness and fatigue Stage IV non-Hodgkin's lymphoma Chronic diastolic dysfunction, currently anemic Hypertension Dyslipidemia PLAN This is a pleasant 67-year-old female who denies ever having had any symptoms of chest discomfort prior to coming to the hospital. She states she came in for generalized weakness and fatigue. This is thought to be likely to her new diagnosis of stage IV non-Hodgkin's lymphoma. She has no EKG evidence of ischemia and negative cardiac enzymes. An acute coronary event has been ruled out. Discontinue IV heparin infusion. There is no evidence of an acute exacerbation of heart failure at this time. Continue current home medications. No further cardiac intervention required at this time. Ongoing medical management. Thank you kindly for this consultation. Nurse Practitioner note has been reviewed, I agree with a documented findings and plan of care. Patient was seen and examined. 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 Hx of kidney stones. Recent diagnosis of B cell non-hodgkins lymphona stage 4 and liver biopsy with 8 lesions seen on liver. CPAP use. Had thyroidectomy. Patient states she has NOT had [place]. Last Myocardial Infarction Date:: 1988 History of Any Multi-Drug Resistant Organisms: None Reported Past Surgical History: Cholecystectomy, Hysterectomy, Tonsillectomy Additional Past Surgical History / Comment(s): Thyroidectomy. Past Anesthesia/Blood Transfusion Reactions: Postoperative Nausea & Vomiting ( PONV) Smoking Status: Never smoker - Past Family History Mother Family Medical History: Cancer Additional Family Medical History / Comment(s): breast CA Father Family Medical History: Cancer Additional Family Medical History / Comment(s): colon CA Sister(s) Family Medical History: Cancer Additional Family Medical History / Comment(s): Skin cancer Medications and Allergies Home Medications Medication Instructions Recorded Confirmed Type Furosemide 20 mg PO BID 09/19/13 10/21/17 History Gabapentin 100 mg PO QAM 09/19/13 10/21/17 History Lisinopril [Zestril] 20 mg PO DAILY 09/19/13 10/21/17 History Potassium Chloride [Klor-Con 10] 10 meq PO DAILY 09/19/13 10/21/17 History Aspirin 162 mg PO DAILY 12/05/14 10/21/17 History Gabapentin [Neurontin] 200 mg PO HS 12/05/14 10/21/17 History Levothyroxine Sodium [Synthroid] 125 mcg PO DAILY 12/05/14 10/21/17 History amLODIPine [Norvasc] 5 mg PO QAM 12/05/14 10/21/17 History metFORMIN HCL 1,000 mg PO BID 12/05/14 10/21/17 History Cetirizine HCl [Zyrtec] 10 mg PO HS 05/24/17 10/21/17 History Cholecalciferol [Vitamin D3] 1,000 unit PO DAILY 05/24/17 10/21/17 History Glimepiride [Amaryl] 2 mg PO DAILY 05/24/17 10/21/17 History Multivitamins, Thera [Multivitamin 1 tab PO DAILY 05/24/17 10/21/17 History (formulary)] ALPRAZolam [Xanax] 1 mg PO DAILY PRN 06/12/17 10/21/17 History Atorvastatin Calcium [Lipitor] 20 mg PO HS 06/12/17 10/21/17 History HYDROcodone/APAP 7.5-325MG [[place] 1 tab PO Q6HR PRN 06/12/17 10/21/17 History 7.5-325] Naproxen Sodium [Aleve] 220 mg PO Q48H PRN 08/24/17 10/21/17 History B Complex-Vit C-Vit E-Zinc [Z-Bec] 1 tab PO DAILY 10/21/17 10/21/17 History Allergies Allergy/AdvReac Type Severity Reaction Status Date / Time haloperidol [From Haldol] Allergy Unknown Verified 10/21/17 18:07 haloperidol lactate Allergy Unknown Verified 10/21/17 18:07 [From Haldol] Iodinated Contrast- Oral and Allergy Rash/Hives Verified 10/21/17 18:07 IV Dye [Iodinated Contrast Media - IV Dye] ciprofloxacin [From Cipro] AdvReac Heartburn Verified 10/21/17 18:07 steri-strips AdvReac Severe sore Uncoded 10/21/17 18:07 Physical Exam Vitals: Vital Signs Temp Pulse Pulse Resp BP BP Pulse Ox 10/22/17 08:00 98.5 F 72 16 119/69 91 L 10/22/17 03:46 16 10/22/17 03:20 98.3 F 73 16 99/65 10/22/17 00:05 98.2 F 75 16 100/54 92 L 10/22/17 00:00 16 10/21/17 22:25 16 10/21/17 21:45 98.2 F 80 16 100/57 92 L 10/21/17 21:37 99.1 F 80 16 101/59 94 L 10/21/17 20:28 97.8 F 81 16 102/66 94 L 10/21/17 19:28 88 16 117/57 96 10/21/17 18:02 97.7 F 70 18 108/64 96 Intake and Output 10/21/17 10/22/17 10/22/17 22:59 06:59 14:59 Intake Total 100.261 Balance 100.261 Intake: Intake, IV Titration 100.261 Amount Heparin Sod,Pork in 0.45% 100.261 NaCl 25,000 unit In 0.45 % NaCl 1 500ml.bag @ 12 UNITS/KG/HR 17.09 mls/hr IV .Q24H [facility] Rx#: [id number] Other: Voiding Method Toilet # Voids 1 Weight 71.2 kg Results 10/21/17 18:10 10/21/17 18:10 Cardiac Enzymes 10/21/17 10/21/17 10/22/17 Range/Units 18:10 18:10 01:10 AST 31 (14-36) U/L CK-MB (CK-2) <0.2 <0.2 (0.0-2.4) ng/mL Troponin I <0.012 <0.012 (0.000-0.034) ng/mL 10/22/17 Range/Units 07:03 AST (14-36) U/L CK-MB (CK-2) <0.2 (0.0-2.4) ng/mL Troponin I <0.012 (0.000-0.034) ng/mL Coagulation 10/21/17 10/22/17 10/22/17 Range/Units 18:10 01:10 07:03 PT 9.5 (9.0-12.0) sec APTT 19.9 L 31.1 H 36.1 H (22.0-30.0) sec Lipids 10/21/17 Range/Units 18:10 Triglycerides 139 (<150) mg/dL Cholesterol 127 (<200) mg/dL HDL Cholesterol 29 L (40-60) mg/dL CBC 10/21/17 Range/Units 18:10 WBC 13.2 H (3.8-10.6) k/uL RBC 4.33 (3.80-5.40) m/uL Hgb 10.6 L (11.4-16.0) gm/dL Hct 34.6 (34.0-46.0) % Plt Count 510 H (150-450) k/uL Comprehensive Metabolic Panel 10/21/17 Range/Units 18:10 Sodium 140 (137-145) mmol/L Potassium 4.8 (3.5-5.1) mmol/L Chloride 101 (98-107) mmol/L Carbon Dioxide 26 (22-30) mmol/L BUN 27 H (7-17) mg/dL Creatinine 1.10 H (0.52-1.04) mg/dL Glucose 73 L (74-99) mg/dL Calcium 12.0 H (8.4-10.2) mg/dL AST 31 (14-36) U/L ALT 29 (9-52) U/L Alkaline Phosphatase 254 H (38-126) U/L Total Protein 7.0 (6.3-8.2) g/dL Albumin 3.8 (3.5-5.0) g/dL Current Medications Generic Name Dose Route Start Last Admin Trade Name Freq PRN Reason Stop Dose Admin Hydrocodone Bitart/Acetaminophen 1 each 10/21/17 20:04 [place] 7.5-325 PO Q6HR PRN Pain Alprazolam 1 mg 10/21/17 20:04 Xanax PO DAILY PRN Anxiety Amlodipine Besylate 5 mg 10/22/17 09:00 10/22/17 09:15 Norvasc PO 5 mg QAM YVETTE Administration Aspirin 325 mg 10/22/17 09:00 10/22/17 09:15 Aspirin PO 325 mg DAILY YVETTE Administration Furosemide 20 mg 10/21/17 21:00 10/22/17 09:15 Lasix PO 20 mg BID YVETTE Administration Gabapentin 100 mg 10/22/17 09:00 10/22/17 09:15 Neurontin PO 100 mg QAM YVETTE Administration Gabapentin 200 mg 10/21/17 21:00 10/21/17 22:17 Neurontin PO 200 mg HS YVETTE Administration Glimepiride 2 mg 10/22/17 07:30 Amaryl PO [id number] YVETTE Heparin Sodium/Sodium Chloride 500 mls @ 17.09 mls/hr 10/21/17 20:15 02:18 25,000 unit/ Sodium Chloride IV 15 units/kg/hr .Q24H [facility] 21.36 mls/hr Titration Protocol 12 UNITS/KG/HR Levothyroxine Sodium 125 mcg 10/23/17 06:00 Synthroid PO [id number] YVETTE Lisinopril 20 mg 10/21/17 21:00 10/21/17 22:09 Zestril PO Not Given HS YVETTE Metformin HCl 1,000 mg 10/21/17 21:00 10/21/17 22:17 Glucophage PO 1,000 mg BID YVETTE Administration Nitroglycerin 0.4 mg 10/21/17 20:02 Nitrostat SUBLINGUAL Q5M PRN Chest Pain Potassium Chloride 10 meq 10/22/17 09:00 10/22/17 09:16 K-Dur 10 PO 10 meq DAILY YEVTTE Administration Intake and Output 10/21/17 10/22/17 10/22/17 22:59 06:59 14:59 Intake Total 100.261 Balance 100.261 Intake: Intake, IV Titration 100.261 Amount Heparin Sod,Pork in 0.45% 100.261 NaCl 25,000 unit In 0.45 % NaCl 1 500ml.bag @ 12 UNITS/KG/HR 17.09 mls/hr IV .Q24H [facility] Rx#: [id number] Other: Voiding Method Toilet # Voids 1 Weight 71.2 kg 10/21/17 18:10 10/21/17 18:10
--- NOTE | 2017-10-22 10:14 | P.PN ---
Progress Note - Text Patient interviewed and examined by nurse practitioner. She reviewed the data with me in detail. Normal ECG normal cardiac enzymes the chest pain story is questionable No further cardiac workup indicated Will sign off
[2017-10-22] MEDS: GLIMEPIRIDE 2 MG TAB PO SCH (11:16)
[2017-10-22] MEDS: metFORMIN 500 MG TAB PO SCH ×2 (11:16→19:41)
[2017-10-22 11:59] LABS: Glucose,Whole Blood 161 mg/dL (75-99)
[2017-10-22 14:04] LABS: Glucose,Whole Blood 226 mg/dL (75-99)
[2017-10-22] MEDS ORDERED: ONDANSETRON 4 MG/2 ML VIAL IVP PRN (14:27)
[2017-10-22] MEDS: BARIUM SULFATE 450 ML ORAL.SUSP BOTTLE PO PRN ×2 (14:29→16:59)
[2017-10-22] MEDS ORDERED: diphenhydrAMINE 50 MG/ML 1 ML VIAL IVP STA (15:44)
[2017-10-22] MEDS ORDERED: FAMOTIDINE 20 MG/2 ML VIAL IV ONE (15:46)
[2017-10-22] MEDS ORDERED: methylPREDNISolone SOD SUCCI 125 MG/2 ML VIAL IV STA (15:46)
[2017-10-22 15:54] LABS: Reticulocyte % 2.8 % (0.5-2.0)
--- NOTE | 2017-10-22 16:08 | P.HPIM ---
History of Present Illness H&P Date: 10/22/17 67-year-old female presents emergency Department via EMS with multiple complaints. Patient states she's had generalized weakness over the last 3-4 weeks which has worsened she states that she sleeps mostly today because she has no energy. She states that she's been having increased difficulty ambulating states that she is very unsteady with her gait and requires the use of assistive device at this time. Patient states that today she developed worsening symptoms including severe nausea and had vomiting just prior to EMS arriving. Patient also complained that she had some mild chest discomfort and she did state that it's been intermittent. Patient denies any known fever, chills. She states that she just says generalized fatigue. She states that she has no appetite that her blood sugars have been labile. Patient denies any focal weakness. She has no current headache. Patient does state that she has been diagnosed with stage IV non-Hodgkin's lymphoma by Dr. sanchez. Patient states she has no current treatment. Review of Systems Constitutional: Reports fatigue, Reports lethargy, Reports weakness Eyes: denies blurred vision Ears, nose, mouth and throat: Denies headache Cardiovascular: Reports chest pain, Denies irregular heart beat, Denies palpitations Respiratory: Denies cough, Denies wheezing Gastrointestinal: Denies abdominal pain, Denies nausea, Denies vomiting Musculoskeletal: Reports gait dysfunction, Reports muscle weakness Neurological: Denies change in speech, Denies double vision Endocrine: Denies cold intolerance, Denies heat intolerance Past Medical History Past Medical History: Cancer, Heart Failure, Diabetes Mellitus, Hyperlipidemia, Hypertension, Sleep Apnea/CPAP/BIPAP, Thyroid Disorder Additional Past Medical History / Comment(s): Closed head injury 1988, sometimes has walking difficullties, uses walker as needed for long walks, no sense of smell. Hx of kidney stones. Recent diagnosis of B cell non-hodgkins lymphona stage 4 and liver biopsy with 8 lesions seen on liver. CPAP use. Had thyroidectomy. Patient states she has NOT had [place]. Last Myocardial Infarction Date:: 1988 History of Any Multi-Drug Resistant Organisms: None Reported Past Surgical History: Cholecystectomy, Hysterectomy, Tonsillectomy Additional Past Surgical History / Comment(s): Thyroidectomy. Past Anesthesia/Blood Transfusion Reactions: Postoperative Nausea & Vomiting ( PONV) Smoking Status: Never smoker - Past Family History Mother Family Medical History: Cancer Additional Family Medical History / Comment(s): breast CA Father Family Medical History: Cancer Additional Family Medical History / Comment(s): colon CA Sister(s) Family Medical History: Cancer Additional Family Medical History / Comment(s): Skin cancer Medications and Allergies Home Medications Medication Instructions Recorded Confirmed Type Furosemide 20 mg PO BID 09/19/13 10/22/17 History Gabapentin 100 mg PO QAM 09/19/13 10/22/17 History Lisinopril [Zestril] 20 mg PO DAILY 09/19/13 10/22/17 History Potassium Chloride [Klor-Con 10] 10 meq PO DAILY 09/19/13 10/22/17 History Aspirin 162 mg PO DAILY 12/05/14 10/22/17 History Gabapentin [Neurontin] 200 mg PO HS 12/05/14 10/22/17 History Levothyroxine Sodium [Synthroid] 125 mcg PO DAILY 12/05/14 10/22/17 History amLODIPine [Norvasc] 5 mg PO QAM 12/05/14 10/22/17 History metFORMIN HCL 1,000 mg PO BID 12/05/14 10/22/17 History Cetirizine HCl [Zyrtec] 10 mg PO HS 05/24/17 10/22/17 History Cholecalciferol [Vitamin D3] 1,000 unit PO DAILY 05/24/17 10/22/17 History Glimepiride [Amaryl] 2 mg PO DAILY 05/24/17 10/22/17 History Multivitamins, Thera [Multivitamin 1 tab PO DAILY 05/24/17 10/22/17 History (formulary)] ALPRAZolam [Xanax] 1 mg PO DAILY PRN 06/12/17 10/22/17 History Atorvastatin Calcium [Lipitor] 40 mg PO HS 06/12/17 10/22/17 History HYDROcodone/APAP 7.5-325MG [[place] 1 tab PO Q6HR PRN 06/12/17 10/22/17 History 7.5-325] Naproxen Sodium [Aleve] 220 mg PO Q48H PRN 08/24/17 10/22/17 History B Complex-Vit C-Vit E-Zinc [Z-Bec] 1 tab PO DAILY 10/21/17 10/22/17 History Citalopram Hydrobromide [CeleXA] 10 - 20 mg PO DAILY 10/22/17 10/22/17 History Allergies Allergy/AdvReac Type Severity Reaction Status Date / Time haloperidol [From Haldol] Allergy Unknown Verified 10/22/17 11:04 haloperidol lactate Allergy Unknown Verified 10/22/17 11:04 [From Haldol] Iodinated Contrast- Oral and Allergy Rash/Hives Verified 10/22/17 11:04 IV Dye [Iodinated Contrast Media - IV Dye] ciprofloxacin [From Cipro] AdvReac Heartburn Verified 10/22/17 11:04 steri-strips AdvReac Severe sore Uncoded 10/21/17 18:07 Physical Exam Vitals: Vital Signs Temp Pulse Pulse Pulse Pulse Pulse Resp 10/22/17 12:00 98.0 F 10/22/17 10:53 80 84 75 10/22/17 08:00 98.5 F 72 16 10/22/17 03:46 16 10/22/17 03:20 98.3 F 73 16 10/22/17 00:05 98.2 F 75 16 10/22/17 00:00 16 10/21/17 22:25 16 10/21/17 21:45 98.2 F 80 16 10/21/17 21:37 99.1 F 80 16 10/21/17 20:28 97.8 F 81 16 10/21/17 19:28 88 16 10/21/17 18:02 97.7 F 70 18 BP BP BP BP BP Pulse Ox 10/22/17 12:00 95 10/22/17 10:53 123/71 112/69 111/66 10/22/17 08:00 119/69 91 L 10/22/17 03:46 10/22/17 03:20 99/65 10/22/17 00:05 100/54 92 L 10/22/17 00:00 10/21/17 22:25 10/21/17 21:45 100/57 92 L 10/21/17 21:37 101/59 94 L 10/21/17 20:28 102/66 94 L 10/21/17 19:28 117/57 96 10/21/17 18:02 108/64 96 Intake and Output 10/22/17 10/22/17 10/22/17 06:59 14:59 22:59 Intake Total 100.261 Balance 100.261 Intake: Intake, IV Titration 100.261 Amount Heparin Sod,Pork in 0.45% 100.261 NaCl 25,000 unit In 0.45 % NaCl 1 500ml.bag @ 12 UNITS/KG/HR 17.09 mls/hr IV .Q24H [facility] Rx#: [id number] Other: Voiding Method Toilet # Voids 1 - Constitutional General appearance: Present: average body habitus, cooperative, no acute distress - EENT Eyes: Present: anicteric sclerae, EOMI, PERRLA, normal appearance ENT: Present: hearing grossly normal, normal oropharynx Ears: bilateral: normal - Neck Neck: Present: normal ROM. Absent: lymphadenopathy, rigidity, thyromegaly Carotids: negative: bruit present Thyroid: bilateral: normal size, negative: enlarged, nodule - Respiratory Respiratory: bilateral: CTA, negative: rales, rhonchi, wheezing - Cardiovascular Rhythm: regular Heart sounds: normal: S1, S2 Abnormal Heart Sounds: Absent: systolic murmur, diastolic murmur - Gastrointestinal General gastrointestinal: Present: normal bowel sounds, soft. Absent: distended , organomegaly, tenderness - Genitourinary Genitourinary Comment(s): deferred - Integumentary Integumentary: Present: normal turgor. Absent: jaundiced, rash, ulcer - Neurologic Neurologic: Present: CNII-XII intact. Absent: focal deficits - Musculoskeletal Musculoskeletal: Present: gait normal, strength equal bilaterally - Psychiatric Psychiatric: Present: A&O x's 3, appropriate affect, intact judgment & insight Results CBC & Chem 7: 10/21/17 18:10 10/21/17 18:10 Labs: Abnormal Lab Results - Last 24 Hours (Table) 10/21/17 10/21/17 10/21/17 Range/Units 18:09 18:10 18:10 WBC 13.2 H (3.8-10.6) k/uL Hgb 10.6 L (11.4-16.0) gm/dL MCV 79.9 L (80.0-100.0) fL MCH 24.4 L (25.0-35.0) pg MCHC 30.5 L (31.0-37.0) g/dL RDW 17.0 H (11.5-15.5) % Plt Count 510 H (150-450) k/uL Neutrophils # (Manual) 9.90 H (1.3-7.7) k/uL Monocytes # (Manual) 1.45 H (0-1.0) k/uL Retic Count (0.5-2.0) % APTT (22.0-30.0) sec BUN (7-17) mg/dL Creatinine (0.52-1.04) mg/dL Glucose (74-99) mg/dL POC Glucose (mg/dL) 73 L (75-99) mg/dL Calcium (8.4-10.2) mg/dL Alkaline Phosphatase (38-126) U/L Total Creatine Kinase <20 L (30-135) U/L HDL Cholesterol (40-60) mg/dL Urine Appearance (Clear) Urine Protein (Negative) Ur Leukocyte Esterase (Negative) Ur Squamous Epith Cells (0-4) /hpf Urine Bacteria (None) /hpf Urine Mucus (None) /hpf 10/21/17 10/21/17 10/21/17 Range/Units 18:10 18:10 18:10 WBC (3.8-10.6) k/uL Hgb (11.4-16.0) gm/dL MCV (80.0-100.0) fL MCH (25.0-35.0) pg MCHC (31.0-37.0) g/dL RDW (11.5-15.5) % Plt Count (150-450) k/uL Neutrophils # (Manual) (1.3-7.7) k/uL Monocytes # (Manual) (0-1.0) k/uL Retic Count (0.5-2.0) % APTT 19.9 L (22.0-30.0) sec BUN 27 H (7-17) mg/dL Creatinine 1.10 H (0.52-1.04) mg/dL Glucose 73 L (74-99) mg/dL POC Glucose (mg/dL) (75-99) mg/dL Calcium 12.0 H (8.4-10.2) mg/dL Alkaline Phosphatase 254 H (38-126) U/L Total Creatine Kinase (30-135) U/L HDL Cholesterol 29 L (40-60) mg/dL Urine Appearance (Clear) Urine Protein (Negative) Ur Leukocyte Esterase (Negative) Ur Squamous Epith Cells (0-4) /hpf Urine Bacteria (None) /hpf Urine Mucus (None) /hpf 10/21/17 10/21/17 10/22/17 Range/Units 19:37 22:13 01:10 WBC (3.8-10.6) k/uL Hgb (11.4-16.0) gm/dL MCV (80.0-100.0) fL MCH (25.0-35.0) pg MCHC (31.0-37.0) g/dL RDW (11.5-15.5) % Plt Count (150-450) k/uL Neutrophils # (Manual) (1.3-7.7) k/uL Monocytes # (Manual) (0-1.0) k/uL Retic Count (0.5-2.0) % APTT (22.0-30.0) sec BUN (7-17) mg/dL Creatinine (0.52-1.04) mg/dL Glucose (74-99) mg/dL POC Glucose (mg/dL) 122 H (75-99) mg/dL Calcium (8.4-10.2) mg/dL Alkaline Phosphatase (38-126) U/L Total Creatine Kinase <20 L (30-135) U/L HDL Cholesterol (40-60) mg/dL Urine Appearance Cloudy H (Clear) Urine Protein Trace H (Negative) Ur Leukocyte Esterase Moderate H (Negative) Ur Squamous Epith Cells 7 H (0-4) /hpf Urine Bacteria Rare H (None) /hpf Urine Mucus Moderate H (None) /hpf 10/22/17 10/22/17 10/22/17 Range/Units 01:10 07:03 07:03 WBC (3.8-10.6) k/uL Hgb (11.4-16.0) gm/dL MCV (80.0-100.0) fL MCH (25.0-35.0) pg MCHC (31.0-37.0) g/dL RDW (11.5-15.5) % Plt Count (150-450) k/uL Neutrophils # (Manual) (1.3-7.7) k/uL Monocytes # (Manual) (0-1.0) k/uL Retic Count (0.5-2.0) % APTT 31.1 H 36.1 H (22.0-30.0) sec BUN (7-17) mg/dL Creatinine (0.52-1.04) mg/dL Glucose (74-99) mg/dL POC Glucose (mg/dL) (75-99) mg/dL Calcium (8.4-10.2) mg/dL Alkaline Phosphatase (38-126) U/L Total Creatine Kinase <20 L (30-135) U/L HDL Cholesterol (40-60) mg/dL Urine Appearance (Clear) Urine Protein (Negative) Ur Leukocyte Esterase (Negative) Ur Squamous Epith Cells (0-4) /hpf Urine Bacteria (None) /hpf Urine Mucus (None) /hpf 10/22/17 10/22/17 10/22/17 Range/Units 11:57 14:02 15:06 WBC (3.8-10.6) k/uL Hgb (11.4-16.0) gm/dL MCV (80.0-100.0) fL MCH (25.0-35.0) pg MCHC (31.0-37.0) g/dL RDW (11.5-15.5) % Plt Count (150-450) k/uL Neutrophils # (Manual) (1.3-7.7) k/uL Monocytes # (Manual) (0-1.0) k/uL Retic Count 2.8 H (0.5-2.0) % APTT (22.0-30.0) sec BUN (7-17) mg/dL Creatinine (0.52-1.04) mg/dL Glucose (74-99) mg/dL POC Glucose (mg/dL) 161 H 226 H (75-99) mg/dL Calcium (8.4-10.2) mg/dL Alkaline Phosphatase (38-126) U/L Total Creatine Kinase (30-135) U/L HDL Cholesterol (40-60) mg/dL Urine Appearance (Clear) Urine Protein (Negative) Ur Leukocyte Esterase (Negative) Ur Squamous Epith Cells (0-4) /hpf Urine Bacteria (None) /hpf Urine Mucus (None) /hpf Thrombosis Risk Factor Assmnt - Choose All That Apply Each Risk Factor Represents 2 Points: Age 61-74 years Thrombosis Risk Factor Assessment Total Risk Factor Score: 2 Thrombosis Risk Factor Assessment Level: Low Risk Assessment and Plan Plan: 1. Chest pain - monitor cardiac enzymes and EKG - cardiology is consulted; echocardiogram done in April 2017 shows left ventricular systolic function with ejection fraction of 50-55%, mild tricuspid regurg - No repeat echocardiogram is recommended - We will resume all current home medications 2. Acute renal injury/dehydration - Start patient on IV fluids half-normal saline run at 75 mL an hour; monitor renal function, electrolytes, strict FANTA's - Avoid nephrotoxins and hypotension 3. Leukocytosis/ thrombocytosis; Possibly secondary to dehydration versus cancerous process - Oncology consultation is done and recommendations are pending 4. Anemia; We will monitor H&H closely and type crossmatch and transfuse if less than 8.0 - We will order stool occult blood and start patient on PPI 5. Non-Hodgkin's lymphoma - Oncology consult in place and recommendations are pending 6. DVT prophylaxis CODE STATUS; full code Time with Patient: Greater than 30
[2017-10-22] MEDS: SODIUM CHLORIDE 0.9% 1,000 ML IV SCH (18:06)
[2017-10-22] MEDS: INSULIN ASPART 100 UNIT/ML 1 ML 10 ML VIAL SQ SCH ×2 (19:07→20:16)
[2017-10-22] MEDS: HYDROcodone/APAP 7.5-325MG 1 EACH TAB PO PRN (20:16)
[2017-10-22] MEDS: LISINOPRIL 20 MG TAB PO SCH (20:16)
[2017-10-22 20:32] LABS: Glucose,Whole Blood 168 mg/dL (75-99)
--- NOTE | 2017-10-22 20:49 | CT ---
EXAMINATION TYPE: CT ChestAbdPelvis w con DATE OF EXAM: 10/22/2017 COMPARISON: Pet/CT 07/01/2017 HISTORY: Follow up for progression on lymphoma. Mets to bone CT DLP: 1920 mGycm Automated exposure control for dose reduction was used. CONTRAST: CT scan of the chest, abdomen and pelvis is performed with Oral Contrast and with IV Contrast, patien t injected with 80 mL of Isovue 300. FINDINGS: LUNGS: The lungs are grossly clear, there is no concerning parenchymal mass or nodule identified. T here is no pleural effusion or pneumothorax seen. The tracheobronchial tree is patent. MEDIASTINUM: There are no greater than 1 cm hilar or mediastinal lymph nodes. No pericardial effusi on is seen. OTHER: Enlarged right axillary lymph node is present which measures up to 1.6 cm and was not present on prior examination. LIVER/GB: Interval development of areas of low attenuation are seen scattered throughout the liver. T he largest discrete areas in the segment 4, is extremely ill-defined but roughly measures up to 6.0 x 4.4 cm up. An additional smaller region of ill-defined low-attenuation segment 4A roughly measures 2 .3 x 3.0 cm. The gallbladder is surgically absent. PANCREAS: No significant abnormality is seen. SPLEEN: No significant abnormality is seen. ADRENALS: No significant abnormality is seen. KIDNEYS: Punctate bilateral nonobstructing renal calculi. BOWEL: No significant abnormality is seen. REPRODUCTIVE ORGANS: No gross abnormality seen. LYMPH NODES: Interval enlargement of periaortic, pericaval, gastrohepatic and periportal adenopathy. A new periportal lymph node now measures up to 3.4 cm with an additional periportal node measuring 3. 0 x 4.8 cm. The largest retroaortic node is located just inferior to the left renal vein, has enlarge d in the interval now measuring 3.4 x 6.2 cm. Extensive additional new periaortic nodes are also pres ent. Scattered but not pathologically enlarged inguinal nodes are evident. No obviously enlarged judith c chain nodes. OSSEOUS STRUCTURES: Unchanged multilevel degenerative changes. IMPRESSION: 1. Overall findings are consistent with progression of disease. 2. Increased size and number of periaortic, pericaval, gastrohepatic and periportal lymph nodes. 3. Interval development of numerous regions of ill-defined hepatic low attenuation which are most con sistent with hepatic metastasis. 4. Interval development of enlarged left axillary lymph node.
--- NOTE | 2017-10-22 23:49 | P.CONS ---
History of Present Illness - Reason for Consult Consult date: 10/22/17 Non-Hodgkin's lymphoma. - History of Present Illness The patient is a 67-year-old white female, well known to our service. She was initially seen in 05/14. The patient had presented with some chest pain. She had a computed tomography scan done to assess for aortic aneurysm, which incidentally revealed upper retroperitoneal lymph nodes. The patient subsequently had a lymph node biopsy which was positive for low-grade non- Hodgkin's lymphoma, with marginal zone lymphoma favored. The patient then had a PET scan done, which showed uptake limited to upper left retroperitoneal area , as well as uptake in the liver. The patient had an MRI of the liver which was not conclusive in terms of ruling in or ruling out liver involvement. She therefore underwent liver biopsy in 07/14 which showed no evidence of lymphoma involvement. It did show evidence of inflammation and steatosis. 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 As the patient was asymptomatic, she was placed on observation which is the standard of care for stage IV low-grade non-Hodgkin lymphoma. The patient states that she has actually been feeling progressively fatigued , with decrease in appetite over the last month or so. She has not informed the office of the same. Apparently she has had some intermittent lower chest discomfort. She has had episodes of low blood sugar. She came into the hospital because of low blood sugar and marked weakness. Apparently there was some concern for angina at the time of admission due to which she was started on heparin. Troponins were negative. The patient was seen by cardiology and heparin discontinued. Actually to me she denied any recent significant chest pain. Consult was placed due to her history of lymphoma. Review of Systems Constitutional: Reports fatigue, Reports weakness Eyes: denies blurred vision, denies pain Ears: deny: decreased hearing, ear discharge, earache, tinnitus Ears, nose, mouth and throat: Denies headache, Denies sore throat Cardiovascular: Reports chest pain, Reports decreased exercise tolerance Respiratory: Denies cough Gastrointestinal: Denies abdominal pain, Denies diarrhea, Denies nausea, Denies vomiting Genitourinary: Denies dysuria, Denies hematuria Menstruation: Reports postmenopausal Musculoskeletal: Reports muscle weakness Neurological: Denies numbness, Denies weakness Psychiatric: Denies anxiety, Denies depression Endocrine: Denies fatigue, Denies weight change Hematologic/Lymphatic: Reports as per HPI Past Medical History Past Medical History: Cancer, Heart Failure, Diabetes Mellitus, Hyperlipidemia, Hypertension, Sleep Apnea/CPAP/BIPAP, Thyroid Disorder Additional Past Medical History / Comment(s): Closed head injury 1988, sometimes has walking difficullties, uses walker as needed for long walks, no sense of smell. Hx of kidney stones. Recent diagnosis of B cell non-hodgkins lymphona stage 4 and liver biopsy with 8 lesions seen on liver. CPAP use. Had thyroidectomy. Patient states she has NOT had NH. Last Myocardial Infarction Date:: 1988 History of Any Multi-Drug Resistant Organisms: None Reported Past Surgical History: Cholecystectomy, Hysterectomy, Tonsillectomy Additional Past Surgical History / Comment(s): Thyroidectomy. Past Anesthesia/Blood Transfusion Reactions: Postoperative Nausea & Vomiting ( PONV) Smoking Status: Never smoker - Past Family History Mother Family Medical History: Cancer Additional Family Medical History / Comment(s): breast CA Father Family Medical History: Cancer Additional Family Medical History / Comment(s): colon CA Sister(s) Family Medical History: Cancer Additional Family Medical History / Comment(s): Skin cancer Medications and Allergies Home Medications Medication Instructions Recorded Confirmed Type Furosemide 20 mg PO BID 09/19/13 10/22/17 History Gabapentin 100 mg PO QAM 09/19/13 10/22/17 History Lisinopril [Zestril] 20 mg PO DAILY 09/19/13 10/22/17 History Potassium Chloride [Klor-Con 10] 10 meq PO DAILY 09/19/13 10/22/17 History Aspirin 162 mg PO DAILY 12/05/14 10/22/17 History Gabapentin [Neurontin] 200 mg PO HS 12/05/14 10/22/17 History Levothyroxine Sodium [Synthroid] 125 mcg PO DAILY 12/05/14 10/22/17 History amLODIPine [Norvasc] 5 mg PO QAM 12/05/14 10/22/17 History metFORMIN HCL 1,000 mg PO BID 12/05/14 10/22/17 History Cetirizine HCl [Zyrtec] 10 mg PO HS 05/24/17 10/22/17 History Cholecalciferol [Vitamin D3] 1,000 unit PO DAILY 05/24/17 10/22/17 History Glimepiride [Amaryl] 2 mg PO DAILY 05/24/17 10/22/17 History Multivitamins, Thera [Multivitamin 1 tab PO DAILY 05/24/17 10/22/17 History (formulary)] ALPRAZolam [Xanax] 1 mg PO DAILY PRN 06/12/17 10/22/17 History Atorvastatin Calcium [Lipitor] 40 mg PO HS 06/12/17 10/22/17 History HYDROcodone/APAP 7.5-325MG [[place] 1 tab PO Q6HR PRN 06/12/17 10/22/17 History 7.5-325] Naproxen Sodium [Aleve] 220 mg PO Q48H PRN 08/24/17 10/22/17 History B Complex-Vit C-Vit E-Zinc [Z-Bec] 1 tab PO DAILY 10/21/17 10/22/17 History Citalopram Hydrobromide [CeleXA] 10 - 20 mg PO DAILY 10/22/17 10/22/17 History Allergies Allergy/AdvReac Type Severity Reaction Status Date / Time haloperidol [From Haldol] Allergy Unknown Verified 10/22/17 11:04 haloperidol lactate Allergy Unknown Verified 10/22/17 11:04 [From Haldol] Iodinated Contrast- Oral and Allergy Rash/Hives Verified 10/22/17 11:04 IV Dye [Iodinated Contrast Media - IV Dye] ciprofloxacin [From Cipro] AdvReac Heartburn Verified 10/22/17 11:04 steri-strips AdvReac Severe sore Uncoded 10/21/17 18:07 Physical Exam Vitals: Vital Signs Temp Pulse Pulse Pulse Pulse Pulse Resp 10/22/17 12:00 98.0 F 10/22/17 10:53 80 84 75 10/22/17 08:00 98.5 F 72 16 10/22/17 03:46 16 10/22/17 03:20 98.3 F 73 16 10/22/17 00:05 98.2 F 75 16 10/22/17 00:00 16 10/21/17 22:25 16 10/21/17 21:45 98.2 F 80 16 10/21/17 21:37 99.1 F 80 16 10/21/17 20:28 97.8 F 81 16 10/21/17 19:28 88 16 10/21/17 18:02 97.7 F 70 18 BP BP BP BP BP Pulse Ox 10/22/17 12:00 95 10/22/17 10:53 123/71 112/69 111/66 10/22/17 08:00 119/69 91 L 10/22/17 03:46 10/22/17 03:20 99/65 10/22/17 00:05 100/54 92 L 10/22/17 00:00 10/21/17 22:25 10/21/17 21:45 100/57 92 L 10/21/17 21:37 101/59 94 L 10/21/17 20:28 102/66 94 L 10/21/17 19:28 117/57 96 10/21/17 18:02 108/64 96 Intake and Output 10/21/17 10/22/17 10/22/17 22:59 06:59 14:59 Intake Total 100.261 Balance 100.261 Intake: Intake, IV Titration 100.261 Amount Heparin Sod,Pork in 0.45% 100.261 NaCl 25,000 unit In 0.45 % NaCl 1 500ml.bag @ 12 UNITS/KG/HR 17.09 mls/hr IV .Q24H [facility] Rx#: [id number] Other: Voiding Method Toilet # Voids 1 Weight 71.2 kg - Constitutional General appearance: no acute distress - EENT Eyes: EOMI, PERRLA ENT: hearing grossly normal, normal oropharynx - Neck Neck: no lymphadenopathy - Respiratory Respiratory: bilateral: CTA - Cardiovascular Rhythm: regular Heart sounds: normal: S1, S2 - Gastrointestinal General gastrointestinal: normal bowel sounds, soft - Integumentary Integumentary: normal - Neurologic Neurologic: CNII-XII intact - Musculoskeletal Musculoskeletal: strength equal bilaterally - Psychiatric Psychiatric: A&O x's 3, appropriate affect Results CBC & Chem 7: 10/21/17 18:10 10/21/17 18:10 Labs: Abnormal Lab Results - Last 24 Hours (Table) 10/21/17 10/21/17 10/21/17 Range/Units 18:09 18:10 18:10 WBC 13.2 H (3.8-10.6) k/uL Hgb 10.6 L (11.4-16.0) gm/dL MCV 79.9 L (80.0-100.0) fL MCH 24.4 L (25.0-35.0) pg MCHC 30.5 L (31.0-37.0) g/dL RDW 17.0 H (11.5-15.5) % Plt Count 510 H (150-450) k/uL Neutrophils # (Manual) 9.90 H (1.3-7.7) k/uL Monocytes # (Manual) 1.45 H (0-1.0) k/uL APTT (22.0-30.0) sec BUN (7-17) mg/dL Creatinine (0.52-1.04) mg/dL Glucose (74-99) mg/dL POC Glucose (mg/dL) 73 L (75-99) mg/dL Calcium (8.4-10.2) mg/dL Alkaline Phosphatase (38-126) U/L Total Creatine Kinase <20 L (30-135) U/L HDL Cholesterol (40-60) mg/dL Urine Appearance (Clear) Urine Protein (Negative) Ur Leukocyte Esterase (Negative) Ur Squamous Epith Cells (0-4) /hpf Urine Bacteria (None) /hpf Urine Mucus (None) /hpf 10/21/17 10/21/17 10/21/17 Range/Units 18:10 18:10 18:10 WBC (3.8-10.6) k/uL Hgb (11.4-16.0) gm/dL MCV (80.0-100.0) fL MCH (25.0-35.0) pg MCHC (31.0-37.0) g/dL RDW (11.5-15.5) % Plt Count (150-450) k/uL Neutrophils # (Manual) (1.3-7.7) k/uL Monocytes # (Manual) (0-1.0) k/uL APTT 19.9 L (22.0-30.0) sec BUN 27 H (7-17) mg/dL Creatinine 1.10 H (0.52-1.04) mg/dL Glucose 73 L (74-99) mg/dL POC Glucose (mg/dL) (75-99) mg/dL Calcium 12.0 H (8.4-10.2) mg/dL Alkaline Phosphatase 254 H (38-126) U/L Total Creatine Kinase (30-135) U/L HDL Cholesterol 29 L (40-60) mg/dL Urine Appearance (Clear) Urine Protein (Negative) Ur Leukocyte Esterase (Negative) Ur Squamous Epith Cells (0-4) /hpf Urine Bacteria (None) /hpf Urine Mucus (None) /hpf 10/21/17 10/21/17 10/22/17 Range/Units 19:37 22:13 01:10 WBC (3.8-10.6) k/uL Hgb (11.4-16.0) gm/dL MCV (80.0-100.0) fL MCH (25.0-35.0) pg MCHC (31.0-37.0) g/dL RDW (11.5-15.5) % Plt Count (150-450) k/uL Neutrophils # (Manual) (1.3-7.7) k/uL Monocytes # (Manual) (0-1.0) k/uL APTT (22.0-30.0) sec BUN (7-17) mg/dL Creatinine (0.52-1.04) mg/dL Glucose (74-99) mg/dL POC Glucose (mg/dL) 122 H (75-99) mg/dL Calcium (8.4-10.2) mg/dL Alkaline Phosphatase (38-126) U/L Total Creatine Kinase <20 L (30-135) U/L HDL Cholesterol (40-60) mg/dL Urine Appearance Cloudy H (Clear) Urine Protein Trace H (Negative) Ur Leukocyte Esterase Moderate H (Negative) Ur Squamous Epith Cells 7 H (0-4) /hpf Urine Bacteria Rare H (None) /hpf Urine Mucus Moderate H (None) /hpf 10/22/17 10/22/17 10/22/17 Range/Units 01:10 07:03 07:03 WBC (3.8-10.6) k/uL Hgb (11.4-16.0) gm/dL MCV (80.0-100.0) fL MCH (25.0-35.0) pg MCHC (31.0-37.0) g/dL RDW (11.5-15.5) % Plt Count (150-450) k/uL Neutrophils # (Manual) (1.3-7.7) k/uL Monocytes # (Manual) (0-1.0) k/uL APTT 31.1 H 36.1 H (22.0-30.0) sec BUN (7-17) mg/dL Creatinine (0.52-1.04) mg/dL Glucose (74-99) mg/dL POC Glucose (mg/dL) (75-99) mg/dL Calcium (8.4-10.2) mg/dL Alkaline Phosphatase (38-126) U/L Total Creatine Kinase <20 L (30-135) U/L HDL Cholesterol (40-60) mg/dL Urine Appearance (Clear) Urine Protein (Negative) Ur Leukocyte Esterase (Negative) Ur Squamous Epith Cells (0-4) /hpf Urine Bacteria (None) /hpf Urine Mucus (None) /hpf 10/22/17 Range/Units 11:57 WBC (3.8-10.6) k/uL Hgb (11.4-16.0) gm/dL MCV (80.0-100.0) fL MCH (25.0-35.0) pg MCHC (31.0-37.0) g/dL RDW (11.5-15.5) % Plt Count (150-450) k/uL Neutrophils # (Manual) (1.3-7.7) k/uL Monocytes # (Manual) (0-1.0) k/uL APTT (22.0-30.0) sec BUN (7-17) mg/dL Creatinine (0.52-1.04) mg/dL Glucose (74-99) mg/dL POC Glucose (mg/dL) 161 H (75-99) mg/dL Calcium (8.4-10.2) mg/dL Alkaline Phosphatase (38-126) U/L Total Creatine Kinase (30-135) U/L HDL Cholesterol (40-60) mg/dL Urine Appearance (Clear) Urine Protein (Negative) Ur Leukocyte Esterase (Negative) Ur Squamous Epith Cells (0-4) /hpf Urine Bacteria (None) /hpf Urine Mucus (None) /hpf Assessment and Plan (1) Non Hodgkin's lymphoma Narrative/Plan: The patient has known stage IV low-grade non-Hodgkin's the fall. At presentation she was quite asymptomatic from the same due to which she was placed on observation, which is the standard of care. She is complaining of new symptoms, especially increased fatigue as well as episodes of hyperglycemia. It is not clear if these are related to the lymphoma . I will check computed tomography scan of the chest abdomen and pelvis to rule out the same. If this is negative for progression, then she can be continued on observation from the oncology standpoint. In that case we would defer to the admitting service and other consultants for workup of her symptoms. If progression is noted, she will need treatment Current Visit: Yes Status: Acute Code(s): C85.90 - NON-HODGKIN LYMPHOMA, UNSPECIFIED, UNSPECIFIED SITE SNOMED Code(s): 522208551 (2) Anemia Narrative/Plan: The patient has a mild anemia with some microcytosis. This is a new finding. I will check anemia workup. Current Visit: Yes Status: Acute Code(s): D64.9 - ANEMIA, UNSPECIFIED SNOMED Code(s): 145513864
[2017-10-23 02:35] LABS: Glucose,Whole Blood 413 mg/dL (75-99)
[2017-10-23 03:43] LABS: Glucose,Whole Blood 475 mg/dL (75-99)
[2017-10-23] MEDS ORDERED: INSULIN ASPART 100 UNIT/ML 1 ML 10 ML VIAL SQ ONE (03:44)
[2017-10-23 04:34] LABS: Anisocytosis Slight; Basophils % (A) 0 %; Eosinophils % (A) 0 %; HCT 33.3 % (34.0-46.0); HGB 9.4 gm/dL (11.4-16.0); Hypochromasia Marked; Lymphocytes # (A) 0.9 k/uL (1.0-4.8); Lymphocytes % (A) 8 %; MCH 23.9 pg (25.0-35.0); MCHC 28.2 g/dL (31.0-37.0); MCV 84.7 fL (80.0-100.0); Mean Platelet Volume 6.4; Monocytes # (A) 0.3 k/uL (0-1.0); Monocytes % (A) 3 %; Neutrophils # (A) 9.2 k/uL (1.3-7.7); Neutrophils % (A) 88 %; Platelet Count 413 k/uL (150-450); RBC 3.93 m/uL (3.80-5.40); RDW 16.7 % (11.5-15.5); WBC 10.4 k/uL (3.8-10.6)
[2017-10-23 04:43] LABS: Calcium 10.6 mg/dL (8.4-10.2); Potassium 4.7 mmol/L (3.5-5.1)
[2017-10-23 05:05] LABS: Glucose,Whole Blood 374 mg/dL (75-99)
[2017-10-23] MEDS: LEVOTHYROXINE 125 MCG TAB PO SCH (06:21)
[2017-10-23] MEDS: SODIUM CHLORIDE 0.9% 1,000 ML IV SCH ×2 (06:21→20:29)
[2017-10-23 06:38] LABS: Glucose,Whole Blood 325 mg/dL (75-99)
[2017-10-23] MEDS: metFORMIN 500 MG TAB PO SCH ×2 (08:27→21:53)
[2017-10-23] MEDS: GABAPENTIN 100 MG CAP PO SCH ×2 (08:36→21:54)
[2017-10-23] MEDS: GLIMEPIRIDE 2 MG TAB PO SCH (08:36)
[2017-10-23] MEDS: PANTOPRAZOLE 40 MG TABLET PO SCH (08:36)
[2017-10-23] MEDS: ASPIRIN 81 MG PO SCH (08:36)
[2017-10-23] MEDS: POTASSIUM CHLORIDE ER 10 MEQ TAB.ER.PRT PO SCH (08:36)
[2017-10-23] MEDS: INSULIN ASPART 100 UNIT/ML 1 ML 10 ML VIAL SQ SCH ×4 (08:38→21:16)
[2017-10-23 11:11] LABS: Iron Saturation 8.84 (12.00-45.00)
[2017-10-23 11:22] LABS: Glucose,Whole Blood 264 mg/dL (75-99)
[2017-10-23 11:43] LABS: Hemoglobin A1C 6.2 % (4.0-6.0)
--- NOTE | 2017-10-23 12:13 | P.PN ---
Subjective Patient resting in bed continues to complain of extreme fatigue. There was discussion with oncology regarding possible liver biopsy to monitor metastatic disease with lymphoma Objective - Vital Signs Vital signs: Vital Signs Temp 97.5 F L 10/23/17 12:00 Pulse 66 10/23/17 12:00 Resp 16 10/23/17 12:00 BP 109/66 10/23/17 12:00 Pulse Ox 98 10/23/17 12:00 Intake & Output 10/22/17 10/23/17 10/23/17 18:59 06:59 18:59 Intake Total 200 Balance 200 Intake: Oral 200 Other: Voiding Method Toilet Toilet Toilet # Voids 1 - Constitutional General appearance: Present: mild distress - EENT Eyes: Present: PERRLA Ears: bilateral: normal - Neck Neck: Present: normal ROM - Respiratory Respiratory: bilateral: CTA - Cardiovascular Rhythm: regular - Gastrointestinal General gastrointestinal: Present: soft - Integumentary Integumentary: Present: normal - Neurologic Neurologic: Present: CNII-XII intact - Musculoskeletal Musculoskeletal: Present: generalized weakness - Labs CBC & Chem 7: 10/23/17 03:56 10/23/17 03:56 Labs: Abnormal Lab Results - Last 24 Hours (Table) 10/22/17 10/22/17 10/22/17 Range/Units 14:02 15:06 20:12 Hgb (11.4-16.0) gm/dL Hct (34.0-46.0) % MCH (25.0-35.0) pg MCHC (31.0-37.0) g/dL RDW (11.5-15.5) % Neutrophils # (1.3-7.7) k/uL Lymphocytes # (1.0-4.8) k/uL Retic Count 2.8 H (0.5-2.0) % Sodium (137-145) mmol/L BUN (7-17) mg/dL Creatinine (0.52-1.04) mg/dL Glucose (74-99) mg/dL POC Glucose (mg/dL) 226 H 168 H (75-99) mg/dL Calcium (8.4-10.2) mg/dL 10/23/17 10/23/17 10/23/17 Range/Units 02:32 03:39 03:56 Hgb 9.4 L (11.4-16.0) gm/dL Hct 33.3 L (34.0-46.0) % MCH 23.9 L (25.0-35.0) pg MCHC 28.2 L (31.0-37.0) g/dL RDW 16.7 H (11.5-15.5) % Neutrophils # 9.2 H (1.3-7.7) k/uL Lymphocytes # 0.9 L (1.0-4.8) k/uL Retic Count (0.5-2.0) % Sodium (137-145) mmol/L BUN (7-17) mg/dL Creatinine (0.52-1.04) mg/dL Glucose (74-99) mg/dL POC Glucose (mg/dL) 413 H 475 H (75-99) mg/dL Calcium (8.4-10.2) mg/dL 10/23/17 10/23/17 10/23/17 Range/Units 03:56 05:02 06:36 Hgb (11.4-16.0) gm/dL Hct (34.0-46.0) % MCH (25.0-35.0) pg MCHC (31.0-37.0) g/dL RDW (11.5-15.5) % Neutrophils # (1.3-7.7) k/uL Lymphocytes # (1.0-4.8) k/uL Retic Count (0.5-2.0) % Sodium 135 L (137-145) mmol/L BUN 26 H (7-17) mg/dL Creatinine 1.10 H (0.52-1.04) mg/dL Glucose 446 H (74-99) mg/dL POC Glucose (mg/dL) 374 H 325 H (75-99) mg/dL Calcium 10.6 H (8.4-10.2) mg/dL 10/23/17 Range/Units 11:19 Hgb (11.4-16.0) gm/dL Hct (34.0-46.0) % MCH (25.0-35.0) pg MCHC (31.0-37.0) g/dL RDW (11.5-15.5) % Neutrophils # (1.3-7.7) k/uL Lymphocytes # (1.0-4.8) k/uL Retic Count (0.5-2.0) % Sodium (137-145) mmol/L BUN (7-17) mg/dL Creatinine (0.52-1.04) mg/dL Glucose (74-99) mg/dL POC Glucose (mg/dL) 264 H (75-99) mg/dL Calcium (8.4-10.2) mg/dL Microbiology - Last 24 Hours (Table) 10/21/17 18:10 Blood Culture - Preliminary Blood No Growth after 24 hours - Imaging and Cardiology Chest x-ray: report reviewed CT scan - abdomen: report reviewed CT scan - chest: report reviewed Assessment and Plan Plan: Assessment Chest pain cleared by cardiology not cardiac event Acute renal injury dehydration Leukocytosis of thrombocytosis Anemia new-onset Non-Hodgkin's lymphoma History of hypothyroidism Hypertension Hyperlipidemia Sleep apnea uses CPAP machine Plan Continue consultation with oncology regarding lymphoma and symptomatic fatigue Cleared by cardiology is not cardiac event
[2017-10-23 13:02] LABS: Glucose,Whole Blood 226 mg/dL (75-99)
[2017-10-23] MEDS: FUROSEMIDE 20 MG TAB PO SCH ×2 (13:33→21:54)
[2017-10-23] MEDS: amLODIPine 5 MG TAB PO SCH (13:33)
--- NOTE | 2017-10-23 14:32 | P.PN ---
Subjective Progress Note Date: 10/23/17 Principal diagnosis: Abdominal Pain Patient seen and evaluated today in follow-up. Her CT scan was reviewed with her. Objective - Vital Signs Vital signs: Vital Signs Temp 97.5 F L 10/23/17 12:00 Pulse 66 10/23/17 12:00 Resp 16 10/23/17 12:00 BP 109/66 10/23/17 12:00 Pulse Ox 98 10/23/17 12:00 Intake & Output 10/22/17 10/23/17 10/23/17 18:59 06:59 18:59 Intake Total 200 Balance 200 Intake: Oral 200 Other: Voiding Method Toilet Toilet Toilet # Voids 1 3 - Exam - Constitutional General appearance: no acute distress - EENT Eyes: EOMI, PERRLA ENT: hearing grossly normal, normal oropharynx - Neck Neck: no lymphadenopathy - Respiratory Respiratory: bilateral: CTA - Cardiovascular Rhythm: regular Heart sounds: normal: S1, S2 - Gastrointestinal General gastrointestinal: normal bowel sounds, soft - Integumentary Integumentary: normal - Neurologic Neurologic: CNII-XII intact - Musculoskeletal Musculoskeletal: strength equal bilaterally - Psychiatric Psychiatric: A&O x's 3, appropriate affect - Labs CBC & Chem 7: 10/23/17 03:56 10/23/17 03:56 Labs: Abnormal Lab Results - Last 24 Hours (Table) 10/22/17 10/22/17 10/23/17 Range/Units 15:06 20:12 02:32 Hgb (11.4-16.0) gm/dL Hct (34.0-46.0) % MCH (25.0-35.0) pg MCHC (31.0-37.0) g/dL RDW (11.5-15.5) % Neutrophils # (1.3-7.7) k/uL Lymphocytes # (1.0-4.8) k/uL Retic Count 2.8 H (0.5-2.0) % Sodium (137-145) mmol/L BUN (7-17) mg/dL Creatinine (0.52-1.04) mg/dL Glucose (74-99) mg/dL POC Glucose (mg/dL) 168 H 413 H (75-99) mg/dL Calcium (8.4-10.2) mg/dL 10/23/17 10/23/17 10/23/17 Range/Units 03:39 03:56 03:56 Hgb 9.4 L (11.4-16.0) gm/dL Hct 33.3 L (34.0-46.0) % MCH 23.9 L (25.0-35.0) pg MCHC 28.2 L (31.0-37.0) g/dL RDW 16.7 H (11.5-15.5) % Neutrophils # 9.2 H (1.3-7.7) k/uL Lymphocytes # 0.9 L (1.0-4.8) k/uL Retic Count (0.5-2.0) % Sodium 135 L (137-145) mmol/L BUN 26 H (7-17) mg/dL Creatinine 1.10 H (0.52-1.04) mg/dL Glucose 446 H (74-99) mg/dL POC Glucose (mg/dL) 475 H (75-99) mg/dL Calcium 10.6 H (8.4-10.2) mg/dL 10/23/17 10/23/17 10/23/17 Range/Units 05:02 06:36 11:19 Hgb (11.4-16.0) gm/dL Hct (34.0-46.0) % MCH (25.0-35.0) pg MCHC (31.0-37.0) g/dL RDW (11.5-15.5) % Neutrophils # (1.3-7.7) k/uL Lymphocytes # (1.0-4.8) k/uL Retic Count (0.5-2.0) % Sodium (137-145) mmol/L BUN (7-17) mg/dL Creatinine (0.52-1.04) mg/dL Glucose (74-99) mg/dL POC Glucose (mg/dL) 374 H 325 H 264 H (75-99) mg/dL Calcium (8.4-10.2) mg/dL 10/23/17 Range/Units 12:39 Hgb (11.4-16.0) gm/dL Hct (34.0-46.0) % MCH (25.0-35.0) pg MCHC (31.0-37.0) g/dL RDW (11.5-15.5) % Neutrophils # (1.3-7.7) k/uL Lymphocytes # (1.0-4.8) k/uL Retic Count (0.5-2.0) % Sodium (137-145) mmol/L BUN (7-17) mg/dL Creatinine (0.52-1.04) mg/dL Glucose (74-99) mg/dL POC Glucose (mg/dL) 226 H (75-99) mg/dL Calcium (8.4-10.2) mg/dL Microbiology - Last 24 Hours (Table) 10/21/17 18:10 Blood Culture - Preliminary Blood No Growth after 24 hours Assessment and Plan Plan: Assessment and Plan (1) Non Hodgkin's lymphoma Narrative/Plan: The patient has known stage IV low-grade non-Hodgkin's the fall. At presentation she was quite asymptomatic from the same due to which she was placed on observation, which is the standard of care. She is complaining of new symptoms, especially increased fatigue as well as episodes of hyperglycemia. It is not clear if these are related to the lymphoma . - CT Chest Abdomen and Pelvis revealed multiple hepatic lesions, the amount and change from previous imaging is not consistent with a low grade lymphoma as her current diagnosis in which she has been on observation. With this new finding, she should undergo a biopsy of the Liver. - CORE biopsy and pathology must be sent for FLOW CYTOMETRY - If her status is changed to in patient, then we will order Interventional Radiaology Consult to have this biopsy completed while inpatient - If she is discharged will need to arrange outpatient Biopsy sooner than later as she is symptomatic. Current Visit: Yes Status: Acute Code(s): C85.90 - NON-HODGKIN LYMPHOMA, UNSPECIFIED, UNSPECIFIED SITE SNOMED Code(s): 458819659 (2) Anemia Narrative/Plan: The patient has a mild anemia with some microcytosis. This is a new finding. Anemia work-up in progress Current Visit: Yes Status: Acute Code(s): D64.9 - ANEMIA, UNSPECIFIED SNOMED Code(s): 690934019 Physician Attest: I have completed the full history and physical of this patient and agree with above dictation by Kay Zayas NP. DIctated as a scribe.
[2017-10-23] MEDS: HYDROcodone/APAP 7.5-325MG 1 EACH TAB PO PRN ×2 (14:43→21:15)
[2017-10-23 16:33] LABS: Glucose,Whole Blood 281 mg/dL (75-99)
[2017-10-23 20:13] LABS: Glucose,Whole Blood 155 mg/dL (75-99)
[2017-10-23] MEDS: LISINOPRIL 20 MG TAB PO SCH (21:54)
[2017-10-24] MEDS: LEVOTHYROXINE 125 MCG TAB PO SCH (06:13)
[2017-10-24 07:01] LABS: Glucose,Whole Blood 114 mg/dL (75-99)
[2017-10-24] MEDS: HYDROcodone/APAP 7.5-325MG 1 EACH TAB PO PRN ×2 (07:32→20:33)
[2017-10-24] MEDS: INSULIN ASPART 100 UNIT/ML 1 ML 10 ML VIAL SQ SCH ×4 (07:33→20:37)
[2017-10-24] MEDS: metFORMIN 500 MG TAB PO SCH ×2 (07:34→20:33)
[2017-10-24] MEDS: GLIMEPIRIDE 2 MG TAB PO SCH (07:34)
[2017-10-24] MEDS: POTASSIUM CHLORIDE ER 10 MEQ TAB.ER.PRT PO SCH (07:35)
[2017-10-24] MEDS: amLODIPine 5 MG TAB PO SCH (07:35)
[2017-10-24] MEDS: PANTOPRAZOLE 40 MG TABLET PO SCH (07:35)
[2017-10-24] MEDS: FUROSEMIDE 20 MG TAB PO SCH ×2 (07:35→20:33)
[2017-10-24 08:18] LABS: Anisocytosis Slight; Basophils # (A) 0.1 k/uL (0-0.2); Basophils % (A) 1 %; Eosinophils # (A) 0.2 k/uL (0-0.7); Eosinophils % (A) 2 %; HGB 10.1 gm/dL (11.4-16.0); Hypochromasia Marked; Lymphocytes # (A) 1.5 k/uL (1.0-4.8); Lymphocytes % (A) 12 %; MCH 24.5 pg (25.0-35.0); MCHC 29.8 g/dL (31.0-37.0); MCV 82.2 fL (80.0-100.0); Mean Platelet Volume 7.3; Monocytes # (A) 0.8 k/uL (0-1.0); Monocytes % (A) 6 %; Neutrophils # (A) 10.2 k/uL (1.3-7.7); Neutrophils % (A) 77 %; Platelet Count 473 k/uL (150-450); RBC 4.14 m/uL (3.80-5.40); RDW 16.9 % (11.5-15.5); WBC 13.2 k/uL (3.8-10.6)
[2017-10-24] MEDS: SODIUM CHLORIDE 0.9% 1,000 ML IV SCH ×2 (10:42→20:38)
[2017-10-24] MEDS: ASPIRIN 81 MG PO SCH (10:43)
[2017-10-24] MEDS: GABAPENTIN 100 MG CAP PO SCH ×2 (10:50→20:32)
--- NOTE | 2017-10-24 11:12 | P.PN ---
Subjective Patient ambulating freely in the room. Discussed that she is having a biopsy this afternoon. Objective - Vital Signs Vital signs: Vital Signs Temp 96.8 F L 10/24/17 05:00 Pulse 82 10/24/17 08:00 Resp 16 10/24/17 08:00 BP 129/64 10/24/17 05:00 Pulse Ox 99 10/24/17 05:00 Intake & Output 10/23/17 10/24/17 10/24/17 18:59 06:59 18:59 Intake Total 200 890 Balance 200 890 Weight 72.235 kg Intake: IV 300 Sodium Chloride 0.9% 1, 300 000 ml @ 75 mls/hr IV . [id number] YVETTE Rx#:[id number] Oral 200 590 Other: Voiding Method Toilet Toilet Toilet # Voids 3 3 - Constitutional General appearance: Present: obese - EENT Eyes: Present: PERRLA Ears: bilateral: normal - Neck Neck: Present: normal ROM - Cardiovascular Rhythm: regular - Integumentary Integumentary: Present: normal - Neurologic Neurologic: Present: CNII-XII intact - Musculoskeletal Musculoskeletal: Present: gait normal - Psychiatric Psychiatric: Present: A&O x's 3, appropriate affect, intact judgment & insight - Labs CBC & Chem 7: 10/24/17 08:04 10/23/17 03:56 Labs: Abnormal Lab Results - Last 24 Hours (Table) 10/22/17 10/22/17 10/23/17 Range/Units 07:03 15:06 11:19 WBC (3.8-10.6) k/uL Hgb (11.4-16.0) gm/dL MCH (25.0-35.0) pg MCHC (31.0-37.0) g/dL RDW (11.5-15.5) % Plt Count (150-450) k/uL Neutrophils # (1.3-7.7) k/uL POC Glucose (mg/dL) 264 H (75-99) mg/dL Hemoglobin A1c 6.2 H (4.0-6.0) % Iron 29 L (50-170) ug/dL Iron Saturation 8.84 L (12.00-45.00) Ferritin 418.8 H (10.0-291.0) ng/mL Lactate Dehydrogenase (313-618) U/L 10/23/17 10/23/17 10/23/17 Range/Units 12:39 16:32 20:12 WBC (3.8-10.6) k/uL Hgb (11.4-16.0) gm/dL MCH (25.0-35.0) pg MCHC (31.0-37.0) g/dL RDW (11.5-15.5) % Plt Count (150-450) k/uL Neutrophils # (1.3-7.7) k/uL POC Glucose (mg/dL) 226 H 281 H 155 H (75-99) mg/dL Hemoglobin A1c (4.0-6.0) % Iron (50-170) ug/dL Iron Saturation (12.00-45.00) Ferritin (10.0-291.0) ng/mL Lactate Dehydrogenase (313-618) U/L 10/24/17 10/24/17 10/24/17 Range/Units 06:59 08:04 08:04 WBC 13.2 H (3.8-10.6) k/uL Hgb 10.1 L (11.4-16.0) gm/dL MCH 24.5 L (25.0-35.0) pg MCHC 29.8 L (31.0-37.0) g/dL RDW 16.9 H (11.5-15.5) % Plt Count 473 H (150-450) k/uL Neutrophils # 10.2 H (1.3-7.7) k/uL POC Glucose (mg/dL) 114 H (75-99) mg/dL Hemoglobin A1c (4.0-6.0) % Iron (50-170) ug/dL Iron Saturation (12.00-45.00) Ferritin (10.0-291.0) ng/mL Lactate Dehydrogenase 294 L (313-618) U/L Microbiology - Last 24 Hours (Table) 10/21/17 18:10 Blood Culture - Preliminary Blood No Growth after 48 hours Assessment and Plan Plan: Assessment Chest pain cleared by cardiology noncardiac Acute renal injury dehydration Leukocytosis thrombocytosis Anemia 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
[2017-10-24 12:08] LABS: Glucose,Whole Blood 106 mg/dL (75-99)
--- NOTE | 2017-10-24 12:29 | P.PN ---
Subjective Progress Note Date: 10/24/17 Principal diagnosis: Abdominal Pain Patient seen and evaluated today in follow-up. Her CT scan was reviewed with her. Awaiting Biopsy to be performed. Objective - Vital Signs Vital signs: Vital Signs Temp 96.8 F L 10/24/17 05:00 Pulse 75 10/24/17 11:57 Resp 18 10/24/17 11:57 BP 91/55 10/24/17 11:57 Pulse Ox 97 10/24/17 11:57 Intake & Output 10/23/17 10/24/17 10/24/17 18:59 06:59 18:59 Intake Total 200 890 Balance 200 890 Weight 72.235 kg Intake: IV 300 Sodium Chloride 0.9% 1, 300 000 ml @ 75 mls/hr IV . [id number] YVETTE Rx#:[id number] Oral 200 590 Other: Voiding Method Toilet Toilet Toilet # Voids 3 3 - Exam - Constitutional General appearance: no acute distress - EENT Eyes: EOMI, PERRLA ENT: hearing grossly normal, normal oropharynx - Neck Neck: no lymphadenopathy - Respiratory Respiratory: bilateral: CTA - Cardiovascular Rhythm: regular Heart sounds: normal: S1, S2 - Gastrointestinal General gastrointestinal: normal bowel sounds, soft - Integumentary Integumentary: normal - Neurologic Neurologic: CNII-XII intact - Musculoskeletal Musculoskeletal: strength equal bilaterally - Psychiatric Psychiatric: A&O x's 3, appropriate affect - Labs CBC & Chem 7: 10/24/17 08:04 10/23/17 03:56 Labs: Abnormal Lab Results - Last 24 Hours (Table) 10/22/17 10/22/17 10/23/17 Range/Units 07:03 15:06 12:39 WBC (3.8-10.6) k/uL Hgb (11.4-16.0) gm/dL MCH (25.0-35.0) pg MCHC (31.0-37.0) g/dL RDW (11.5-15.5) % Plt Count (150-450) k/uL Neutrophils # (1.3-7.7) k/uL POC Glucose (mg/dL) 226 H (75-99) mg/dL Hemoglobin A1c 6.2 H (4.0-6.0) % Iron 29 L (50-170) ug/dL Iron Saturation 8.84 L (12.00-45.00) Ferritin 418.8 H (10.0-291.0) ng/mL Lactate Dehydrogenase (313-618) U/L 10/23/17 10/23/17 10/24/17 Range/Units 16:32 20:12 06:59 WBC (3.8-10.6) k/uL Hgb (11.4-16.0) gm/dL MCH (25.0-35.0) pg MCHC (31.0-37.0) g/dL RDW (11.5-15.5) % Plt Count (150-450) k/uL Neutrophils # (1.3-7.7) k/uL POC Glucose (mg/dL) 281 H 155 H 114 H (75-99) mg/dL Hemoglobin A1c (4.0-6.0) % Iron (50-170) ug/dL Iron Saturation (12.00-45.00) Ferritin (10.0-291.0) ng/mL Lactate Dehydrogenase (313-618) U/L 10/24/17 10/24/17 10/24/17 Range/Units 08:04 08:04 12:07 WBC 13.2 H (3.8-10.6) k/uL Hgb 10.1 L (11.4-16.0) gm/dL MCH 24.5 L (25.0-35.0) pg MCHC 29.8 L (31.0-37.0) g/dL RDW 16.9 H (11.5-15.5) % Plt Count 473 H (150-450) k/uL Neutrophils # 10.2 H (1.3-7.7) k/uL POC Glucose (mg/dL) 106 H (75-99) mg/dL Hemoglobin A1c (4.0-6.0) % Iron (50-170) ug/dL Iron Saturation (12.00-45.00) Ferritin (10.0-291.0) ng/mL Lactate Dehydrogenase 294 L (313-618) U/L Microbiology - Last 24 Hours (Table) 10/21/17 18:10 Blood Culture - Preliminary Blood No Growth after 48 hours Assessment and Plan Plan: Assessment and Plan (1) Non Hodgkin's lymphoma Narrative/Plan: The patient has known stage IV low-grade non-Hodgkin's the fall. At presentation she was quite asymptomatic from the same due to which she was placed on observation, which is the standard of care. She is complaining of new symptoms, especially increased fatigue as well as episodes of hyperglycemia. It is not clear if these are related to the lymphoma . - CT Chest Abdomen and Pelvis revealed multiple hepatic lesions, the amount and change from previous imaging is not consistent with a low grade lymphoma as her current diagnosis in which she has been on observation. With this new finding, she should undergo a biopsy of the Liver. - CORE biopsy and pathology must be sent for FLOW CYTOMETRY - Patient has been changed to inpatient status and Interventional Radiology has been consulted for Biopsy Current Visit: Yes Status: Acute Code(s): C85.90 - NON-HODGKIN LYMPHOMA, UNSPECIFIED, UNSPECIFIED SITE SNOMED Code(s): 852211039 (2) Anemia Narrative/Plan: The patient has a mild anemia with some microcytosis. This is a new finding. Anemia work-up in progress Current Visit: Yes Status: Acute Code(s): D64.9 - ANEMIA, UNSPECIFIED SNOMED Code(s): 716032317 Physician Attest: I have completed the full history and physical of this patient and agree with above dictation by Kay Zayas NP. DIctated as a scribe.
--- NOTE | 2017-10-24 12:54 | US ---
EXAMINATION TYPE: US biopsy liver DATE OF EXAM: 10/24/2017 HISTORY: Liver masses. FINDINGS: Maximal barrier technique was utilized. The skin overlying a suitable path to the patient' s left lobe liver mass was localized with ultrasound and the overlying skin prepped and draped. Ultr asound was utilized with sterile technique. Lidocaine was used for local anesthesia. A skin kendall wa s made with a scalpel. A 17-gauge needle was advanced under direct ultrasound guidance into the mass , 22-gauge needle was advanced and aspirated specimen submitted to cytology. Subsequently 4 cores obt ained of the mass with and 18-gauge needle. Specimens submitted to Pathology. Following the procedu re, hemostasis achieved and the patient is discharged in stable condition without complication. IMPRESSION:STATUS POST ULTRASOUND GUIDED FINE NEEDLE ASPIRATION CORE BIOPSY OF left lobe liver MASS, PATHOLOGY IS PENDING. THIS PROCEDURE IS PERFORMED BY THE UNDERSIGNED.
[2017-10-24 14:38] LABS: Glucose,Whole Blood 96 mg/dL (75-99)
[2017-10-24 16:59] LABS: Glucose,Whole Blood 107 mg/dL (75-99)
[2017-10-24] MEDS: LISINOPRIL 20 MG TAB PO SCH (20:33)
[2017-10-24 20:36] LABS: Glucose,Whole Blood 200 mg/dL (75-99)
[2017-10-25 05:35] VITALS: BP 127/63; PULSE 75; RESP 16; TEMP 98.5
[2017-10-25] MEDS: LEVOTHYROXINE 125 MCG TAB PO SCH (06:14)
[2017-10-25 06:55] LABS: Glucose,Whole Blood 79 mg/dL (75-99)
[2017-10-25] MEDS: INSULIN ASPART 100 UNIT/ML 1 ML 10 ML VIAL SQ SCH ×2 (08:48→12:22)
[2017-10-25] MEDS: GABAPENTIN 100 MG CAP PO SCH (08:49)
[2017-10-25] MEDS: PANTOPRAZOLE 40 MG TABLET PO SCH (08:49)
[2017-10-25] MEDS: metFORMIN 500 MG TAB PO SCH (08:50)
[2017-10-25] MEDS: FUROSEMIDE 20 MG TAB PO SCH (08:50)
[2017-10-25] MEDS: amLODIPine 5 MG TAB PO SCH (08:51)
[2017-10-25] MEDS: GLIMEPIRIDE 2 MG TAB PO SCH (08:51)
[2017-10-25] MEDS: POTASSIUM CHLORIDE ER 10 MEQ TAB.ER.PRT PO SCH (08:51)
[2017-10-25] MEDS: ASPIRIN 81 MG PO SCH (08:51)
[2017-10-25 11:24] LABS: Glucose,Whole Blood 221 mg/dL (75-99)
--- NOTE | 2017-10-25 12:04 | P.DS ---
Providers Date of admission: 10/24/17 14:43 Expected date of discharge: 10/25/17 Attending physician: Leonard Solano Consults: 10/21/17 20:02 Consult Physician Urgent Consulting Provider: Wicho Gracia Consult Reason/Comments: Non-Hodgkin's lymphoma Do you want consulting provider notified?: Yes 10/21/17 22:51 Consult Physician Routine Consulting Provider: Sal Fish Consult Reason/Comments: Chest Pain Do you want consulting provider notified?: Yes, Notify in am Primary care physician: Leonard Solano Hospital Course: 67-year-old female was admitted to the emergency room with multiple complaints. Patient states she's increasing generalized weakness with unsteady gait. Also complaining of severe nausea and vomiting and some mild chest discomfort. Patient has recently been diagnosed with non-Hodgkin's lymphoma with Dr. Gracia attending. Patient was evaluated by cardiology regarding chest pain they felt that it was noncardiac. Patient was evaluated by oncology and they will follow- up with care. Patient is post liver biopsy awaiting pathology. Patient will be discharged home to follow-up with family physician and Dr. Gracia Assessment Chest pain noncardiac Acute renal injury dehydration Leukocytosis thrombocytosis Anemia non-Hodgkin's lymphoma metastatic to bone marrow and liver History of hypothyroidism Hypertension Hyperlipidemia Sleep apnea with use of CPAP Plan Follow-up with Dr. Gracia regarding treatment of lymphoma awaiting biopsy report of liver Follow-up with family physician Dr. Leonard Solano Patient Condition at Discharge: Fair Plan - Discharge Summary New Discharge Prescriptions: New Insulin Aspart [NovoLOG (formulary)] 0 unit SQ ACHS vial Continue Lisinopril [Zestril] 20 mg PO DAILY Potassium Chloride [Klor-Con 10] 10 meq PO DAILY Gabapentin 100 mg PO QAM Furosemide 20 mg PO BID Aspirin 162 mg PO DAILY Gabapentin [Neurontin] 200 mg PO HS amLODIPine [Norvasc] 5 mg PO QAM Levothyroxine Sodium [Synthroid] 125 mcg PO DAILY metFORMIN HCL 1,000 mg PO BID Cetirizine HCl [Zyrtec] 10 mg PO HS Multivitamins, Thera [Multivitamin (formulary)] 1 tab PO DAILY Glimepiride [Amaryl] 2 mg PO DAILY Cholecalciferol [Vitamin D3] 1,000 unit PO DAILY Atorvastatin Calcium [Lipitor] 40 mg PO HS HYDROcodone/APAP 7.5-325MG [Makanda 7.5-325] 1 tab PO Q6HR PRN PRN Reason: Pain ALPRAZolam [Xanax] 1 mg PO DAILY PRN PRN Reason: Anxiety Naproxen Sodium [Aleve] 220 mg PO Q48H PRN PRN Reason: Pain B Complex-Vit C-Vit E-Zinc [Z-Bec] 1 tab PO DAILY Citalopram Hydrobromide [CeleXA] 10 - 20 mg PO DAILY Discharge Medication List Furosemide 20 mg PO BID 09/19/13 [History] Gabapentin 100 mg PO QAM 09/19/13 [History] Lisinopril [Zestril] 20 mg PO DAILY 09/19/13 [History] Potassium Chloride [Klor-Con 10] 10 meq PO DAILY 09/19/13 [History] Aspirin 162 mg PO DAILY 12/05/14 [History] Gabapentin [Neurontin] 200 mg PO HS 12/05/14 [History] Levothyroxine Sodium [Synthroid] 125 mcg PO DAILY 12/05/14 [History] amLODIPine [Norvasc] 5 mg PO QAM 12/05/14 [History] metFORMIN HCL 1,000 mg PO BID 12/05/14 [History] Cetirizine HCl [Zyrtec] 10 mg PO HS 05/24/17 [History] Cholecalciferol [Vitamin D3] 1,000 unit PO DAILY 05/24/17 [History] Glimepiride [Amaryl] 2 mg PO DAILY 05/24/17 [History] Multivitamins, Thera [Multivitamin (formulary)] 1 tab PO DAILY 05/24/17 [History ] ALPRAZolam [Xanax] 1 mg PO DAILY PRN 06/12/17 [History] Atorvastatin Calcium [Lipitor] 40 mg PO HS 06/12/17 [History] HYDROcodone/APAP 7.5-325MG [Makanda 7.5-325] 1 tab PO Q6HR PRN 06/12/17 [History] Naproxen Sodium [Aleve] 220 mg PO Q48H PRN 08/24/17 [History] B Complex-Vit C-Vit E-Zinc [Z-Bec] 1 tab PO DAILY 10/21/17 [History] Citalopram Hydrobromide [CeleXA] 10 - 20 mg PO DAILY 10/22/17 [History] Insulin Aspart [NovoLOG (formulary)] 0 unit SQ ACHS vial 10/25/17 [Rx] Follow up Appointment(s)/Referral(s): Leonard Solano MD [Primary Care Provider] - 1-2 days [facility], [NON-STAFF] -
[2017-10-25] MEDS: SODIUM CHLORIDE 0.9% 1,000 ML IV SCH (12:21)
--- NOTE | 2017-10-25 13:52 | P.PN ---
Subjective Progress Note Date: 10/25/17 Principal diagnosis: Abdominal Pain Patient seen and evaluated today in follow-up. SHe states she is concerned about the biopsy and wants to wait till returns to start treatment. I explained to her if her symptoms are controlled, the biopsy results will likely not be back until late this week or early next week and at that time we will have to see what our tretment options will be. SHe appears anxious and concerned about the unexpected today, and unable to comfort her as I do not have the answers untill tissue biopsy has resulted. I have assisted in a follow-up appointment for her to see Dr. Gracia in office on 10/31/17@9am at our [facility] office. Objective - Vital Signs Vital signs: Vital Signs Temp 98.5 F 10/25/17 05:00 Pulse 75 10/25/17 08:00 Resp 16 10/25/17 08:00 BP 127/63 10/25/17 05:00 Pulse Ox 96 10/25/17 05:00 Intake & Output 10/24/17 10/25/17 10/25/17 18:59 06:59 18:59 Intake Total 1780 Balance 1780 Weight 72.235 kg 69 kg Intake: Oral 1780 Other: Voiding Method Toilet Toilet Toilet # Voids 1 2 - Exam - Constitutional General appearance: no acute distress - EENT Eyes: EOMI, PERRLA ENT: hearing grossly normal, normal oropharynx - Neck Neck: no lymphadenopathy - Respiratory Respiratory: bilateral: CTA - Cardiovascular Rhythm: regular Heart sounds: normal: S1, S2 - Gastrointestinal General gastrointestinal: normal bowel sounds, soft - Integumentary Integumentary: normal - Neurologic Neurologic: CNII-XII intact - Musculoskeletal Musculoskeletal: strength equal bilaterally - Psychiatric Psychiatric: A&O x's 3, appropriate affect - Labs CBC & Chem 7: 10/24/17 08:04 10/23/17 03:56 Labs: Abnormal Lab Results - Last 24 Hours (Table) 10/22/17 10/24/17 10/24/17 Range/Units 15:06 16:57 20:35 POC Glucose (mg/dL) 107 H 200 H (75-99) mg/dL RBC Folate 1,392 H (280 - 791) ng/mL 10/25/17 Range/Units 11:22 POC Glucose (mg/dL) 221 H (75-99) mg/dL RBC Folate (280 - 791) ng/mL Microbiology - Last 24 Hours (Table) 10/21/17 18:10 Blood Culture - Preliminary Blood No Growth after 72 hours Assessment and Plan Plan: Assessment and Plan (1) Non Hodgkin's lymphoma Narrative/Plan: The patient has known stage IV low-grade non-Hodgkin's the fall. At presentation she was quite asymptomatic from the same due to which she was placed on observation, which is the standard of care. She is complaining of new symptoms, especially increased fatigue as well as episodes of hyperglycemia. It is not clear if these are related to the lymphoma . - CT Chest Abdomen and Pelvis revealed multiple hepatic lesions, the amount and change from previous imaging is not consistent with a low grade lymphoma as her current diagnosis in which she has been on observation. With this new finding, she should undergo a biopsy of the Liver. - CORE biopsy and pathology must be sent for FLOW CYTOMETRY - Patient has been changed to inpatient status and Interventional Radiology has been consulted for Biopsy - Will follow-up with Dr. Gracia at our [facility] office on 10/31/17 to discuss results of biopsy and treatment plan options Current Visit: Yes Status: Acute Code(s): C85.90 - NON-HODGKIN LYMPHOMA, UNSPECIFIED, UNSPECIFIED SITE SNOMED Code(s): 677033942 (2) Anemia Narrative/Plan: The patient has a mild anemia with some microcytosis. This is a new finding. Anemia work-up in progress Current Visit: Yes Status: Acute Code(s): D64.9 - ANEMIA, UNSPECIFIED SNOMED Code(s): 870316172 Ok for discharge from oncology standpoint. Physician Attest: I have completed the full history and physical of this patient and agree with above dictation by Kay Zayas NP. DIctated as a scribe.
[2017-10-26 11:17] LABS: Methylmalonic Acid 0.59 umol/L (<0.40)
== END 2017-10-25 13:05 | disposition home or self-care (01) | DRG 436 ==
LOC: EC 18:00 → 3OBS 21:14 → 5ONC 10-23 14:47 → OBSVTOIN 10-24 14:43
PROVIDERS: ADMIT Family Medicine; ATTEND Family Medicine
PROC: 0FB23ZX Excision of Left Lobe Liver, Percutaneous Approach, Diagnostic (ICD-10-PCS; principal; 2017-10-24)
DX: C78.7 Secondary malignant neoplasm of liver and intrahepatic bile duct (principal); C79.52 Secondary malignant neoplasm of bone marrow; C85.10 Unspecified B-cell lymphoma, unspecified site; I50.30 Unspecified diastolic (congestive) heart failure; N17.9 Acute kidney failure, unspecified; D64.9 Anemia, unspecified; D72.829 Elevated white blood cell count, unspecified; E11.65 Type 2 diabetes mellitus with hyperglycemia; E78.5 Hyperlipidemia, unspecified; E86.0 Dehydration; E89.0 Postprocedural hypothyroidism; G47.33 Obstructive sleep apnea (adult) (pediatric); I07.1 Rheumatic tricuspid insufficiency; I11.0 Hypertensive heart disease with heart failure; I25.2 Old myocardial infarction; I44.0 Atrioventricular block, first degree; Z79.82 Long term (current) use of aspirin; Z79.899 Other long term (current) drug therapy; Z79.890 Hormone replacement therapy; Z80.0 Family history of malignant neoplasm of digestive organs; Z80.3 Family history of malignant neoplasm of breast; Z80.8 Family history of malignant neoplasm of other organs or systems; Z87.442 Personal history of urinary calculi; Z90.710 Acquired absence of both cervix and uterus; Z79.84 Long term (current) use of oral hypoglycemic drugs; R26.81 Unsteadiness on feet; Z88.8 Allergy status to other drugs, medicaments and biological substances; Z88.1 Allergy status to other antibiotic agents; Z91.041 Radiographic dye allergy status
CPT/HCPCS: 36415; 47000; 70450; 71046; 71260; 74177; 76942; 80048; 80053; 80061; 81001; 82550; 82553; 82607; 82728; 82747; 83036; 83540; 83550; 83615; 83880; 83921; 84484; 85025; 85045; 85610; 85730; 87040; 88173; 88305; 88307; 88341; 88342; 93005; 96361; 96365; 96376; 99285

== ENCOUNTER 2017-11-30 12:15 | Inpatient (IN) | payer MEDICARE, OTHER ==
[2017-11-30] MEDS ORDERED: ACETAMINOPHEN TAB 500 MG TAB PO STA (12:45)
[2017-11-30] MEDS ORDERED: IBUPROFEN 600 MG TAB PO STA (12:45)
[2017-11-30] MEDS ORDERED: CEFEPIME 2 GM in SODIUM CHLORIDE 0.9% 50 ML IVPB STA (12:46)
[2017-11-30] MEDS: SODIUM CHLORIDE 0.9% 500 ML 500 ML IV SCH ×3 (12:58→13:48)
--- NOTE | 2017-11-30 13:25 | ED ---
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 Patient was over at the oncologist office today and her blood pressure was low and her heart rate was high so they sent to the emergency department immediate. Patient states she's extremely fatigued and is having some abdominal discomfort a little more in the upper than the lower. Patient denies any recent fever chills. Patient denies any cough. Patient denies any chest pain palpitations difficulty breathing or shortness of breath. Patient denies any nausea vomiting or diarrhea. Patient denies any headache patient denies any lightheadedness dizziness or near syncopal episode. - Related Data Home Medications Medication Instructions Recorded Confirmed Furosemide 20 mg PO BID 09/19/13 11/30/17 Gabapentin 100 mg PO QAM 09/19/13 11/30/17 Potassium Chloride [Klor-Con 10] 10 meq PO DAILY 09/19/13 11/30/17 Gabapentin [Neurontin] 200 mg PO HS 12/05/14 11/30/17 Levothyroxine Sodium [Synthroid] 125 mcg PO [id number] 12/05/14 11/30/17 metFORMIN HCL 1,000 mg PO BID PRN 12/05/14 11/30/17 Cetirizine HCl [Zyrtec] 10 mg PO HS 05/24/17 11/30/17 Glimepiride [Amaryl] 2 mg PO DAILY PRN 05/24/17 11/30/17 Multivitamins, Thera [Multivitamin 1 tab PO DAILY 05/24/17 11/30/17 (formulary)] ALPRAZolam [Xanax] 0.5 - 1 mg PO DAILY PRN 06/12/17 11/30/17 Atorvastatin Calcium [Lipitor] 40 mg PO HS 06/12/17 11/30/17 Citalopram Hydrobromide [CeleXA] 20 mg PO DAILY 10/22/17 11/30/17 Ondansetron HCl [Zofran] 8 mg PO Q6H PRN 11/30/17 11/30/17 Pantoprazole [Protonix] 40 mg PO DAILY 11/30/17 11/30/17 Super B Complex 1 tab PO DAILY 11/30/17 11/30/17 predniSONE 100 mg PO DIRECTED 11/30/17 11/30/17 Allergies Allergy/AdvReac Type Severity Reaction Status Date / Time haloperidol [From Haldol] Allergy Unknown Verified 11/30/17 13:04 haloperidol lactate Allergy Unknown Verified 11/30/17 13:04 [From Haldol] Iodinated Contrast- Oral and Allergy Rash/Hives Verified 11/30/17 13:04 IV Dye [Iodinated Contrast Media - IV Dye] ciprofloxacin [From Cipro] AdvReac Heartburn Verified 11/30/17 13:04 steri-strips AdvReac Severe sore Uncoded 11/30/17 12:30 Review of Systems ROS Statement: Those systems with pertinent positive or pertinent negative responses have been documented in the HPI. ROS Other: All systems not noted in ROS Statement are negative. 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 Hx of kidney stones. Recent diagnosis of B cell non-hodgkins lymphona stage 4 and liver biopsy with 8 lesions seen on liver. CPAP use. Had thyroidectomy. Patient states she has NOT had LA. Last Myocardial Infarction Date:: 1988 History of Any Multi-Drug Resistant Organisms: None Reported Past Surgical History: Cholecystectomy, Hysterectomy, Tonsillectomy Additional Past Surgical History / Comment(s): Thyroidectomy, lymph node and liver biopsies Past Anesthesia/Blood Transfusion Reactions: Postoperative Nausea & Vomiting ( PONV) Past Psychological History: Anxiety Smoking Status: Never smoker Past Alcohol Use History: None Reported Past Drug Use History: None Reported - Past Family History Mother Family Medical History: Cancer Additional Family Medical History / Comment(s): breast CA Father Family Medical History: Cancer Additional Family Medical History / Comment(s): colon CA Sister(s) Family Medical History: Cancer Additional Family Medical History / Comment(s): Skin cancer General Exam - General Exam Comments Initial Comments: GENERAL: Patient is well-developed and well-nourished. Patient is nontoxic and well- hydrated and is in mild distress. Patient is very tired in appearance. ENT: Neck is soft and supple. No significant lymphadenopathy is noted. Oropharynx is clear. Moist mucous membranes. Neck has full range of motion without eliciting any pain EYES: The sclera were anicteric and conjunctiva were pink and moist. Extraocular movements were intact and pupils were equal round and reactive to light. Eyelids were unremarkable. PULMONARY: Unlabored respirations. Good breath sounds bilaterally. No audible rales rhonchi or wheezing was noted. CARDIOVASCULAR: There is a regular rate and rhythm without any murmurs gallops or rubs. ABDOMEN: Patient's abdomen is tender diffusely but slightly more tender and the right upper epigastric and left upper regions. SKIN: Skin is clear with no lesions or rashes and otherwise unremarkable. NEUROLOGIC: Patient is alert and oriented x3. Cranial nerves II through XII are grossly intact. Motor and sensory are also intact. Normal speech, volume and content. Symmetrical smile. MUSCULOSKELETAL: Normal extremities with adequate strength and full range of motion. No lower extremity swelling or edema. No calf tenderness. LYMPHATICS: No significant lymphadenopathy is noted PSYCHIATRIC: Normal psychiatric evaluation. Limitations: no limitations Course Vital Signs 11/30/17 11/30/17 11/30/17 12:30 12:50 13:51 Temperature 99.2 F 100.6 F H Pulse Rate 109 H 101 H 83 Respiratory 18 20 16 Rate Blood Pressure 74/44 86/52 78/45 O2 Sat by Pulse 95 98 98 Oximetry 11/30/17 11/30/17 11/30/17 14:30 15:09 15:19 Temperature Pulse Rate 74 68 69 Respiratory 18 18 18 Rate Blood Pressure 69/38 85/55 94/51 O2 Sat by Pulse 95 97 Oximetry 11/30/17 11/30/17 15:47 16:34 Temperature Pulse Rate 60 64 Respiratory 16 16 Rate Blood Pressure 108/57 102/52 O2 Sat by Pulse 99 99 Oximetry Medical Decision Making - Medical Decision Making EKG shows sinus tachycardia with occasional PVCs at 103 bpm IL interval 174 QRS is 90 QT interval 370 QTC is 495. Patient's EKG shows T-wave inversions in leads 1 and 2 and aVL it is a poor quality EKG. There is no significant ST segment elevation noted. Chest x-ray shows no acute abnormality. Patient received 2 half liters of fluid and the blood pressure remained low so the patient was started on Levophed. Patient's blood pressure responded nicely I spoke with Dr. Samia Rayo and Dr. Huerta and put all 3 on consult. Computed tomography scan of the abdomen and pelvis shows a 2-3 mm left proximal ureteral stone with some obstruction. Patient does not want to be catheterized for urine and she has not yet produced urine. I spoke with Dr. Solano he agreed to admit the patient admitted the patient I consult that Dr. Gracia and Dr. Blunt - Lab Data Result diagrams: 11/30/17 12:56 11/30/17 12:56 Lab Results 11/30/17 11/30/17 11/30/17 Range/Units 12:56 12:56 12:56 WBC 1.6 L (3.8-10.6) k/uL RBC 3.78 L (3.80-5.40) m/uL Hgb 9.3 L (11.4-16.0) gm/dL Hct 30.4 L (34.0-46.0) % MCV 80.3 (80.0-100.0) fL MCH 24.6 L (25.0-35.0) pg MCHC 30.6 L (31.0-37.0) g/dL RDW 16.8 H (11.5-15.5) % Plt Count 167 (150-450) k/uL Neutrophils % (Manual) 52 % Band Neutrophils % 10 % Lymphocytes % (Manual) 17 % Monocytes % (Manual) 18 % Eosinophils % (Manual) 3 % Metamyelocytes % 1 % Myelocytes % 1 % Neutrophils # (Manual) 0.90 L (1.3-7.7) k/uL Lymphocytes # (Manual) 0.27 L (1.0-4.8) k/uL Monocytes # (Manual) 0.29 (0-1.0) k/uL Eosinophils # (Manual) 0.05 (0-0.7) k/uL Metamyelocytes # (Man) 0.02 H (0) k/uL Myelocytes # (Manual) 0.02 H (0) k/uL Nucleated RBCs 0 (0-0) /100 WBC Manual Slide Review Performed Toxic Granulation Present Dohle Bodies Present Hypochromasia Moderate Poikilocytosis (manual Present Anisocytosis Slight PT (9.0-12.0) sec INR (<1.2) APTT (22.0-30.0) sec Sodium 134 L (137-145) mmol/L Potassium 3.3 L (3.5-5.1) mmol/L Chloride 100 (98-107) mmol/L Carbon Dioxide 21 L (22-30) mmol/L Anion Gap 13 mmol/L BUN 24 H (7-17) mg/dL Creatinine 1.12 H (0.52-1.04) mg/dL Est GFR (CKD-EPI)AfAm 60 (>60 ml/min/1.73 sqM) Est GFR (CKD-EPI)NonAf 52 (>60 ml/min/1.73 sqM) Glucose 247 H (74-99) mg/dL Plasma Lactic Acid Tim (0.7-2.0) mmol/L Calcium 7.6 L (8.4-10.2) mg/dL Magnesium (1.6-2.3) mg/dL Total Bilirubin 0.6 (0.2-1.3) mg/dL AST 22 (14-36) U/L ALT 36 (9-52) U/L Alkaline Phosphatase 147 H (38-126) U/L Troponin I (0.000-0.034) ng/mL Total Protein 5.4 L (6.3-8.2) g/dL Albumin 2.6 L (3.5-5.0) g/dL Blood Type O Positive Blood Type Recheck CABO Indicated Antibody Screen NEGATIVE Spec Expiration Date 11/30/2017 - 142411/30/17 11/30/17 11/30/17 Range/Units 12:56 12:56 12:56 WBC (3.8-10.6) k/uL RBC (3.80-5.40) m/uL Hgb (11.4-16.0) gm/dL Hct (34.0-46.0) % MCV (80.0-100.0) fL MCH (25.0-35.0) pg MCHC (31.0-37.0) g/dL RDW (11.5-15.5) % Plt Count (150-450) k/uL Neutrophils % (Manual) % Band Neutrophils % % Lymphocytes % (Manual) % Monocytes % (Manual) % Eosinophils % (Manual) % Metamyelocytes % % Myelocytes % % Neutrophils # (Manual) (1.3-7.7) k/uL Lymphocytes # (Manual) (1.0-4.8) k/uL Monocytes # (Manual) (0-1.0) k/uL Eosinophils # (Manual) (0-0.7) k/uL Metamyelocytes # (Man) (0) k/uL Myelocytes # (Manual) (0) k/uL Nucleated RBCs (0-0) /100 WBC Manual Slide Review Toxic Granulation Dohle Bodies Hypochromasia Poikilocytosis (manual Anisocytosis PT 11.3 (9.0-12.0) sec INR 1.2 H (<1.2) APTT 25.0 (22.0-30.0) sec Sodium (137-145) mmol/L Potassium (3.5-5.1) mmol/L Chloride (98-107) mmol/L Carbon Dioxide (22-30) mmol/L Anion Gap mmol/L BUN (7-17) mg/dL Creatinine (0.52-1.04) mg/dL Est GFR (CKD-EPI)AfAm (>60 ml/min/1.73 sqM) Est GFR (CKD-EPI)NonAf (>60 ml/min/1.73 sqM) Glucose (74-99) mg/dL Plasma Lactic Acid Tim 1.7 (0.7-2.0) mmol/L Calcium (8.4-10.2) mg/dL Magnesium (1.6-2.3) mg/dL Total Bilirubin (0.2-1.3) mg/dL AST (14-36) U/L ALT (9-52) U/L Alkaline Phosphatase (38-126) U/L Troponin I <0.012 (0.000-0.034) ng/mL Total Protein (6.3-8.2) g/dL Albumin (3.5-5.0) g/dL Blood Type Blood Type Recheck Antibody Screen Spec Expiration Date 11/30/17 Range/Units 12:56 WBC (3.8-10.6) k/uL RBC (3.80-5.40) m/uL Hgb (11.4-16.0) gm/dL Hct (34.0-46.0) % MCV (80.0-100.0) fL MCH (25.0-35.0) pg MCHC (31.0-37.0) g/dL RDW (11.5-15.5) % Plt Count (150-450) k/uL Neutrophils % (Manual) % Band Neutrophils % % Lymphocytes % (Manual) % Monocytes % (Manual) % Eosinophils % (Manual) % Metamyelocytes % % Myelocytes % % Neutrophils # (Manual) (1.3-7.7) k/uL Lymphocytes # (Manual) (1.0-4.8) k/uL Monocytes # (Manual) (0-1.0) k/uL Eosinophils # (Manual) (0-0.7) k/uL Metamyelocytes # (Man) (0) k/uL Myelocytes # (Manual) (0) k/uL Nucleated RBCs (0-0) /100 WBC Manual Slide Review Toxic Granulation Dohle Bodies Hypochromasia Poikilocytosis (manual Anisocytosis PT (9.0-12.0) sec INR (<1.2) APTT (22.0-30.0) sec Sodium (137-145) mmol/L Potassium (3.5-5.1) mmol/L Chloride (98-107) mmol/L Carbon Dioxide (22-30) mmol/L Anion Gap mmol/L BUN (7-17) mg/dL Creatinine (0.52-1.04) mg/dL Est GFR (CKD-EPI)AfAm (>60 ml/min/1.73 sqM) Est GFR (CKD-EPI)NonAf (>60 ml/min/1.73 sqM) Glucose (74-99) mg/dL Plasma Lactic Acid Tim (0.7-2.0) mmol/L Calcium (8.4-10.2) mg/dL Magnesium 1.0 L (1.6-2.3) mg/dL Total Bilirubin (0.2-1.3) mg/dL AST (14-36) U/L ALT (9-52) U/L Alkaline Phosphatase (38-126) U/L Troponin I (0.000-0.034) ng/mL Total Protein (6.3-8.2) g/dL Albumin (3.5-5.0) g/dL Blood Type Blood Type Recheck Antibody Screen Spec Expiration Date Critical Care Time Critical Care Time: Yes Total Critical Care Time: 35 Disposition Clinical Impression: Sepsis, Kidney stone, History of lymphoma, Febrile neutropenia Disposition: ADMITTED IP TO THIS HOSP Referrals: Leonard Solano MD [Primary Care Provider] - 1-2 days Time of Disposition: 16:52
[2017-11-30 13:27] LABS: INR 1.2 (<1.2); Prothrombin Time 11.3 sec (9.0-12.0)
[2017-11-30 13:31] LABS: Anisocytosis Slight; HCT 30.4 % (34.0-46.0); HGB 9.3 gm/dL (11.4-16.0); Hypochromasia Moderate; MCH 24.6 pg (25.0-35.0); MCHC 30.6 g/dL (31.0-37.0); MCV 80.3 fL (80.0-100.0); Mean Platelet Volume 7.5; Platelet Count 167 k/uL (150-450); RBC 3.78 m/uL (3.80-5.40); RDW 16.8 % (11.5-15.5); WBC 1.6 k/uL (3.8-10.6)
[2017-11-30 13:57] LABS: Band Neutrophils % 10 %; Eosinophils # (M) 0.05 k/uL (0-0.7); Lymphocytes # (M) 0.27 k/uL (1.0-4.8); Metamyelocytes # (M) 0.02 k/uL (0); Metamyelocytes % 1 %; Monocytes # (M) 0.29 k/uL (0-1.0); Myelocytes # (M) 0.02 k/uL (0); Myelocytes % 1 %; Neutrophils % (M) 52 %; Nucleated Red Blood Cells 0 /100 WBC (0-0); Total Cells Counted 200
[2017-11-30 14:00] LABS: Dohle Bodies Present; Poikilocytosis (M) Present; Toxic Granulation Present
--- NOTE | 2017-11-30 14:11 | XR ---
EXAMINATION TYPE: XR chest 2V DATE OF EXAM: 11/30/2017 COMPARISON: 11/06/2017 INDICATION: Fever TECHNIQUE: Frontal and lateral views of the chest are obtained. FINDINGS: The heart size is normal. The pulmonary vasculature is normal. There is a nodule within the mid left lung which is stable. Right-sided port is stable. No suspicious infiltrate is evident. IMPRESSION: 1. Stable nodule left midlung.
[2017-11-30 14:20] LABS: Albumin 2.6 g/dL (3.5-5.0); Calcium 7.6 mg/dL (8.4-10.2); Potassium 3.3 mmol/L (3.5-5.1); Total Bilirubin 0.6 mg/dL (0.2-1.3); Total Protein 5.4 g/dL (6.3-8.2)
[2017-11-30] MEDS ORDERED: NOREPINEPHRINE 4 MG in SODIUM CHLORIDE 0.9% 250 ML IV ONE (14:31)
[2017-11-30] MEDS ORDERED: methylPREDNISolone SOD SUCCI 125 MG/2 ML VIAL IV STA (14:36)
[2017-11-30] MEDS ORDERED: FAMOTIDINE 20 MG/2 ML VIAL IV STA (14:36)
[2017-11-30] MEDS ORDERED: diphenhydrAMINE 50 MG/ML 1 ML VIAL IVP STA (14:36)
[2017-11-30] MEDS ORDERED: CEFEPIME 2 GM in SODIUM CHLORIDE 0.9% 50 ML IVPB SCH (16:00)
--- NOTE | 2017-11-30 16:28 | CT ---
EXAMINATION TYPE: CT abdomen pelvis w con DATE OF EXAM: 11/30/2017 COMPARISON: Prior CT 10/22/2017 HISTORY: Patient poor historian. Pain. CT DLP: 674 mGycm Automated exposure control for dose reduction was used. TECHNIQUE: Helical acquisition of images from the lung bases through the pelvis have been completed. CONTRAST: Performed without Oral Contrast and with IV Contrast, patient injected with 80 mL of Isovue 300. FINDINGS: LUNG BASES: Minimal dependent atelectatic changes are noted.. AORTA: No significant abnormality is appreciated. LIVER/GB: Multiple hypointense lesions within the liver are again noted compatible with metastatic fo ci. Patient is post cholecystectomy. PANCREAS: No significant abnormality is seen. SPLEEN: No significant abnormality is seen. ADRENALS: No significant abnormality is seen. KIDNEYS: No significant abnormality is seen. Retroaortic left renal vein is noted. There is a proxima l left ureteral calculus with hydronephrosis. Calculus measures approximately 2 to 3 mm in size. Low dense focus within the left kidney is again seen. REPRODUCTIVE ORGANS: No significant abnormality is seen BOWEL: There are fluid-filled loops of small bowel with wall thickening which are somewhat distended . Extensive diverticular change noted within the colon. FREE AIR: No Free Air visible. ASCITES: None visible. PELVIC ADENOPATHY: None visualized. RETROPERITONEAL ADENOPATHY: Again noted is retroperitoneal adenopathy as described on prior CT. URINARY BLADDER: No significant abnormality is seen. OSSEOUS STRUCTURES: Degenerative disc changes, facet arthropathy are noted. IMPRESSION: INTERVAL OBSTRUCTED PROXIMAL LEFT URETERAL CALCULUS. THERE MAY BE AN UNDERLYING ILEUS OR ENTERITIS. M ETASTATIC DISEASE.
[2017-11-30] MEDS ORDERED: NALOXONE 0.4 MG/ML 1 ML VIAL IV PRN ×2 (16:54→23:01)
[2017-11-30] MEDS ORDERED: ACETAMINOPHEN TAB 325 MG TAB PO PRN (16:54)
[2017-11-30] MEDS ORDERED: VANCOMYCIN IV PER PHARMACY 1 EACH MISC MISCELLANE PRN (16:56)
[2017-11-30] MEDS ORDERED: HYDROCORTISONE SUCCINATE 100 MG/2 ML VIAL IV STA (16:58)
[2017-11-30] MEDS ORDERED: VANCOMYCIN 1,250 MG in SODIUM CHLORIDE 0.9% 250 ML IVPB STA (17:01)
--- NOTE | 2017-11-30 18:04 | P.CNPUL ---
History of Present Illness Consult date: 11/30/17 Chief complaint: Acute hypotension History of present illness: 67-year-old female patient with known history of non-Hodgkin's lymphoma with involvement of the liver on the lung who was transferred to the emergency department from her oncologist office because of hypotension and tachycardia. The patient presented to the ED having extreme fatigue and some degree of abdominal discomfort more so in the upper abdomen compared to the lower. She denied having any recent fever. The daughter however told me that the patient was having a low-grade fever of 100.4. She did admit to have some loose liquidy bowel movements 2 bouts yesterday and one bout this morning. No recent antibiotic use. The patient has a Mediport over the right chest area the site of which is clean and that is no erythema and the port is functioning well. She denied having any cough or sputum production. No reported nausea or vomiting or emesis. No chest pain. No angina. Her blood work showed that the patient was neutropenic with a white cell count of 1.6. She had a hemoglobin of 9.3 with a platelet count of 167. Her BUN was 24 with a creatinine of 1.1. She had no significant metabolic acidosis. The patient lactic acid level was at 1.7 at a time of initial evaluation. Liver function tests are also within normal limits. She was unable to give a UA and she refused and declined a Sinclair catheter insertion. The patient was started already on a combination of cefepime and vancomycin. She was found to be hypotensive and she received 2 L of IV fluid without much response and her blood pressure in general. Note that her systolic blood pressure was 74 with a diastolic of 44. At one point, her blood pressure was as low as 69/38. Her heart rate was around 109 and with fluid resuscitation dropped down to 83. She was also started on pressors after 2-1/2 L of IV fluid and pulmonary critical care consultation was requested. CAT scan of the abdomen was done and showed a 3 mm left proximal ureteral stone with obstruction and mild left hydronephrosis. The patient has fluid-filled loops of small bowel with wall thickening and extensive diverticular changes within the colon. Retroperitoneal adenopathy was again described by the CAT scan. There was normal aorta, normal pancreas and spleen, multiple hypodense lesions within the liver noted suggestive of metastatic foci and the patient is postcholecystectomy. Note that this patient lymphoma was a recent diagnosis. She was initially seen in 05/14. The patient had presented with some chest pain. She had a computed tomography scan done to assess for aortic aneurysm, which incidentally revealed upper retroperitoneal lymph nodes. The patient subsequently had a lymph node biopsy which was positive for low-grade non-Hodgkin's lymphoma, with marginal zone lymphoma favored. The patient then had a PET scan done, which showed uptake limited to upper left retroperitoneal area, as well as uptake in the liver. The patient had an MRI of the liver which was not conclusive in terms of ruling in or ruling out liver involvement. She therefore underwent liver biopsy in 07/14 which showed no evidence of lymphoma involvement. It did show evidence of inflammation and steatosis. 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 As the patient was asymptomatic, she was placed on observation which is the standard of care for stage IV low-grade non-Hodgkin lymphoma. Patient was recently started on systemic chemotherapy knowing that the bone marrow biopsy also showed conversion to a high-grade lymphoma and the patient was given a first cycle of systemic chemotherapy that included Cytoxan, Rituxan and high-dose prednisone. The patient was also given Neulasta for neutropenia post chemotherapy. Review of Systems 12 point review of system was done and the positive findings are almost above history of present illness. The patient was profoundly fatigued and hypotensive. She was also weak. Constitutional: Reports fatigue, Reports weakness Eyes: denies blurred vision, denies pain Ears: deny: decreased hearing, ear discharge, earache, tinnitus Ears, nose, mouth and throat: Denies headache, Denies sore throat Cardiovascular: Reports chest pain, Reports decreased exercise tolerance Respiratory: Denies cough Gastrointestinal: Denies abdominal pain, Denies diarrhea, Denies nausea, Denies vomiting Genitourinary: Denies dysuria, Denies hematuria Menstruation: Reports postmenopausal Musculoskeletal: Reports muscle weakness Neurological: Denies numbness, Denies weakness Psychiatric: Denies anxiety, Denies depression Endocrine: Denies fatigue, Denies weight change Hematologic/Lymphatic: Reports as per HPI Past Medical History Past Medical History: Cancer, Heart Failure, Diabetes Mellitus, Hyperlipidemia, Hypertension, Sleep Apnea/CPAP/BIPAP, Thyroid Disorder Additional Past Medical History / Comment(s): B-cell non-Hodgkin's lymphoma stage IV, diabetes mellitus, hypertension, hyperlipidemia, obstructive sleep apnea, hypothyroidism post thyroidectomy, closed head injury in 1988, difficulty with mobility and ambulation the patient has been using a walker him a history of nephrolithiasis/kidney stones Last Myocardial Infarction Date:: 1988 History of Any Multi-Drug Resistant Organisms: None Reported Past Surgical History: Cholecystectomy, Hysterectomy, Tonsillectomy Additional Past Surgical History / Comment(s): Thyroidectomy, lymph node and liver biopsies Past Anesthesia/Blood Transfusion Reactions: Postoperative Nausea & Vomiting ( PONV) Past Psychological History: Anxiety Smoking Status: Never smoker Past Alcohol Use History: None Reported Past Drug Use History: None Reported - Past Family History Mother Family Medical History: Cancer Additional Family Medical History / Comment(s): breast CA Father Family Medical History: Cancer Additional Family Medical History / Comment(s): colon CA Sister(s) Family Medical History: Cancer Additional Family Medical History / Comment(s): Skin cancer Medications and Allergies Home Medications Medication Instructions Recorded Confirmed Type Furosemide 20 mg PO BID 09/19/13 11/30/17 History Gabapentin 100 mg PO QAM 09/19/13 11/30/17 History Potassium Chloride [Klor-Con 10] 10 meq PO DAILY 09/19/13 11/30/17 History Gabapentin [Neurontin] 200 mg PO HS 12/05/14 11/30/17 History Levothyroxine Sodium [Synthroid] 125 mcg PO MOTUWETHFRSA 12/05/14 11/30/17 History metFORMIN HCL 1,000 mg PO BID PRN 12/05/14 11/30/17 History Cetirizine HCl [Zyrtec] 10 mg PO HS 05/24/17 11/30/17 History Glimepiride [Amaryl] 2 mg PO DAILY PRN 05/24/17 11/30/17 History Multivitamins, Thera [Multivitamin 1 tab PO DAILY 05/24/17 11/30/17 History (formulary)] ALPRAZolam [Xanax] 0.5 - 1 mg PO DAILY PRN 06/12/17 11/30/17 History Atorvastatin Calcium [Lipitor] 40 mg PO HS 06/12/17 11/30/17 History Citalopram Hydrobromide [CeleXA] 20 mg PO DAILY 10/22/17 11/30/17 History Ondansetron HCl [Zofran] 8 mg PO Q6H PRN 11/30/17 11/30/17 History Pantoprazole [Protonix] 40 mg PO DAILY 11/30/17 11/30/17 History Super B Complex 1 tab PO DAILY 11/30/17 11/30/17 History predniSONE 100 mg PO DIRECTED 11/30/17 11/30/17 History Allergies Allergy/AdvReac Type Severity Reaction Status Date / Time haloperidol [From Haldol] Allergy Unknown Verified 11/30/17 13:04 haloperidol lactate Allergy Unknown Verified 11/30/17 13:04 [From Haldol] Iodinated Contrast- Oral and Allergy Rash/Hives Verified 11/30/17 13:04 IV Dye [Iodinated Contrast Media - IV Dye] ciprofloxacin [From Cipro] AdvReac Heartburn Verified 11/30/17 13:04 steri-strips AdvReac Severe sore Uncoded 11/30/17 12:30 Physical Exam Vitals: Vital Signs Temp Pulse Resp BP Pulse Ox 11/30/17 16:34 64 16 102/52 99 11/30/17 15:47 60 16 108/57 99 11/30/17 15:19 69 18 94/51 11/30/17 15:09 68 18 85/55 97 11/30/17 14:30 74 18 69/38 95 11/30/17 13:51 83 16 78/45 98 11/30/17 12:50 100.6 F H 101 H 20 86/52 98 11/30/17 12:30 99.2 F 109 H 18 74/44 95 Intake and Output 11/30/17 11/30/17 11/30/17 06:59 14:59 22:59 Intake Total 9.062 Balance 9.062 Intake: Intake, IV Titration 9.062 Amount Norepinephrine 4 mg In 9.062 Sodium Chloride 0.9% 250 ml @ Titrate IV .Q0M ONE Rx#:[id number] Other: Weight 63.957 kg - Constitutional General appearance: no acute distress - EENT Eyes: EOMI, PERRLA ENT: hearing grossly normal, normal oropharynx - Neck Neck: no lymphadenopathy - Respiratory Respiratory: bilateral: CTA - Cardiovascular Rhythm: regular Heart sounds: normal: S1, S2 - Gastrointestinal General gastrointestinal: normal bowel sounds, soft - Integumentary Integumentary: normal - Neurologic Neurologic: CNII-XII intact - Musculoskeletal Musculoskeletal: strength equal bilaterally - Psychiatric Psychiatric: A&O x's 3, appropriate affect Results Results - Laboratory Findings CBC and BMP: 11/30/17 12:56 11/30/17 12:56 PT/INR, D-dimer PT 11.3 sec (9.0-12.0) 11/30/17 12:56 INR 1.2 (<1.2) H 11/30/17 12:56 Abnormal lab findings: Abnormal Labs 11/30/17 11/30/17 11/30/17 12:56 12:56 12:56 WBC 1.6 L RBC 3.78 L Hgb 9.3 L Hct 30.4 L MCH 24.6 L MCHC 30.6 L RDW 16.8 H Neutrophils # (Manual) 0.90 L Lymphocytes # (Manual) 0.27 L Metamyelocytes # (Man) 0.02 H Myelocytes # (Manual) 0.02 H INR 1.2 H Sodium 134 L Potassium 3.3 L Carbon Dioxide 21 L BUN 24 H Creatinine 1.12 H Glucose 247 H Calcium 7.6 L Magnesium Alkaline Phosphatase 147 H Total Protein 5.4 L Albumin 2.6 L 11/30/17 12:56 WBC RBC Hgb Hct MCH MCHC RDW Neutrophils # (Manual) Lymphocytes # (Manual) Metamyelocytes # (Man) Myelocytes # (Manual) INR Sodium Potassium Carbon Dioxide BUN Creatinine Glucose Calcium Magnesium 1.0 L Alkaline Phosphatase Total Protein Albumin Assessment and Plan Plan: Assessment 1 acute hypotension, likely of a septic in nature. The patient is neutropenic and absolute neutrophil count is less than the thousand. In addition, she presents in with profound hypotension, responsive to IV fluids and the patient was placed on pressors and broad-spectrum antibiotics including a combination of cefepime and vancomycin. Blood cultures of been sent. Unable to collect urine due to refusal of a Sinclair catheter and the patient has not been able to produce any urine. CAT scan of the abdomen shows 3 mm ureteral calculus along with some mild left kidney hydronephrosis. Possibility of an obstructive uropathy/complicated UTI with secondary sepsis needs to be considered. Possibility of underlying colitis/enteritis with secondary diarrhea. 2 stage IV non-Hodgkin's lymphoma low-grade 3 obstructive uropathy with left ureteral stone and hydronephrosis 4 anemia, normocytic likely chronic 5 obstructive sleep apnea 6 hypothyroidism 7 hyperlipidemia 8 diabetes mellitus 9 history of closed head injury Plan Continue IV fluids at 150 mL an hour. Continue stress dose hydrocortisone 50 mg every 8 hours that the patient was taken steroids on outpatient basis. The patient needs to get at least 4 L of IV fluid boluses. Continue pressors to maintain a mean artery pressure above 65. The patient has a Mediport in place. We will utilize a Mediport in addition to the peripheral lines. Continue same antibiotic coverage. Patient is on cefepime and vancomycin. We'll add Flagyl for any possibility of underlying enteritis/colitis. Check stool for C. diff if there is any recurrent diarrhea. He says 40 catheter. Obtain urology consultation regarding the ureteral stone and hydronephrosis. Resume outpatient medications including the thyroid hormone. Hold diuretics. Sliding scale insulin Sugar coverage. Stop the metformin and Amaryl for now. We'll move this patient in intensive care unit for further monitoring. Time with Patient: Greater than 30
[2017-11-30] MEDS ORDERED: ONDANSETRON 4 MG TAB PO PRN (18:05)
[2017-11-30] MEDS ORDERED: ALPRAZolam 0.5 MG TAB PO PRN (18:05)
[2017-11-30 19:07] LABS: Appearance,Urine Cloudy (Clear); Bilirubin,Urine Negative (Negative); Blood,Urine Small (Negative); Color,Urine Yellow; Glucose,Urine (UA) Negative (Negative); Ketones,Urine Trace (Negative); Leukocyte Esterase,Urine Negative (Negative); Mucus,Urine Rare /hpf; Nitrite,Urine Negative (Negative); Protein,Urine Trace (Negative); RBC,Urine 11 /hpf (0-5); Specific Gravity,Urine 1.025 (1.001-1.035); Squamous Epithelial Cell,Urine <1 /hpf (0-4); Urobilinogen,Urine <2.0 mg/dL (<2.0); WBC,Urine 4 /hpf (0-5)
[2017-11-30] MEDS: metroNIDAZOLE-NS PMX 500 MG in SALINE 1 100ML.BAG IVPB SCH (19:41)
[2017-11-30 20:52] LABS: Glucose,Whole Blood 269 mg/dL (75-99)
[2017-11-30] MEDS: CEFEPIME 2 GM in SODIUM CHLORIDE 0.9% 50 ML IVPB SCH (22:03)
[2017-11-30] MEDS: GABAPENTIN 100 MG CAP PO SCH (22:08)
[2017-11-30] MEDS ORDERED: NOREPINEPHRINE 4 MG in SODIUM CHLORIDE 0.9% 250 ML IV SCH (22:15)
[2017-11-30 23:20] LABS: Glucose,Whole Blood 289 mg/dL (75-99)
[2017-12-01] MEDS ORDERED: metroNIDAZOLE-NS PMX 500 MG in SALINE 1 100ML.BAG IVPB SCH
[2017-12-01] MEDS: metroNIDAZOLE-NS PMX 500 MG in SALINE 1 100ML.BAG IVPB SCH ×4 (01:14→23:05)
[2017-12-01] MEDS: HYDROCORTISONE SUCCINATE 100 MG/2 ML VIAL IV SCH ×4 (01:25→23:05)
[2017-12-01] MEDS ORDERED: Potassium Replacement Protocol 1 EACH MISC MISCELLANE PRN (01:46)
[2017-12-01] MEDS ORDERED: Magnesium Replacement Protocol 1 EACH MISC MISCELLANE PRN (01:46)
[2017-12-01] MEDS: POTASSIUM CHLORIDE ER 20 MEQ TAB.ER PO SCH ×2 (02:20→03:04)
[2017-12-01] MEDS: CEFEPIME 2 GM in SODIUM CHLORIDE 0.9% 50 ML IVPB SCH ×2 (05:01→13:10)
[2017-12-01 05:50] LABS: Magnesium 1.2 mg/dL (1.6-2.3); Phosphorus 3.4 mg/dL (2.5-4.5); Potassium 3.8 mmol/L (3.5-5.1)
[2017-12-01 05:53] LABS: Anisocytosis Slight; HCT 27.4 % (34.0-46.0); HGB 8.2 gm/dL (11.4-16.0); Hypochromasia Marked; MCHC 29.8 g/dL (31.0-37.0); MCV 80.6 fL (80.0-100.0); Mean Platelet Volume 7.9; Microcytosis Slight; Platelet Count 218 k/uL (150-450); RDW 17.1 % (11.5-15.5); WBC 5.2 k/uL (3.8-10.6)
[2017-12-01] MEDS: VANCOMYCIN 1,250 MG in SODIUM CHLORIDE 0.9% 250 ML IVPB SCH (06:36)
[2017-12-01] MEDS: MAGNESIUM SULFATE-D5W PMX 1 GM in DEXTROSE/WATER 1 100ML.BAG IVPB SCH ×3 (07:00→11:40)
[2017-12-01 07:28] LABS: Glucose,Whole Blood 363 mg/dL (75-99)
[2017-12-01] MEDS ORDERED: INSULIN ASPART 100 UNIT/ML 1 ML 10 ML VIAL SQ SCH (07:30)
--- NOTE | 2017-12-01 07:51 | P.GSCN ---
History of Present Illness Consult date: 12/01/17 Reason for Consult: Left ureteral calculus-possible urosepsis History of present illness: The patient is a 67-year-old female admitted through the emergency room yesterday evening for evaluation of neutropenic fever associated with hypotension. She has recently been diagnosed with stage IV non-Hodgkin's lymphoma with liver and pulmonary metastases. She received cytotoxin, Rituxan and high-dose prednisone approximately 10 days ago. She was seen by Dr. Gracia in his office yesterday and complained of extreme fatigue and was noted to have hypotension. She will also had a low-grade fever. When she came to the emergency room her systolic blood pressure was approximately 70. She did have a temperature 100.4. Her white blood count was 1600. BUN/creatinine were 24/ 1.12 which is not significantly changed from the values obtained 2 weeks ago when her creatinine was 1.10. Noncontrast computed tomography scan of the chest , abdomen and pelvis showed a less than 2 mm calculus in the proximal left ureter with minimal if any hydronephrosis. The patient was unable to void in the emergency room and refused placement of a catheter to obtain a urine specimen. There was initially some concern that the patient could have sepsis related to urinary tract infection complicated by an obstructive calculus. She was started on cefepime and vancomycin and transferred to the intensive care unit. She has remained stable overnight and her systolic blood pressure is now approximately 100 however she is receiving Levaquin support. The patient has a history of urolithiasis and underwent right ureteroscopy with lithotripsy for treatment of an obstructive right ureteral calculus in 12/[address] Colvin. She says she's had no problems since that time. She does not have a history of recurrent urinary tract infections and according to the hospital records urine cultures since then have then repeatedly no growth. She denies any recent hematuria or change in her normal voiding pattern. She says she usually voids every 2-3 hours during the day and only occasionally at night. She says she's had some lower abdominal pain for several weeks as well as chronic back pain but this has not changed recently. She denies any left flank pain. Review of Systems - Constitutional Reports fatigue, Reports lethargy - Cardiovascular Denies shortness of breath - Respiratory Denies cough - Gastrointestinal Reports as per HPI - Genitourinary Genitourinary: Reports as per HPI Past Medical History Past Medical History: Cancer, Heart Failure, Diabetes Mellitus, Hyperlipidemia, Hypertension, Sleep Apnea/CPAP/BIPAP, Thyroid Disorder Additional Past Medical History / Comment(s): B-cell non-Hodgkin's lymphoma stage IV, diabetes mellitus,daughter stated pt had first chemo mon 11-20-17 hypertension, hyperlipidemia, obstructive sleep apnea, hypothyroidism post thyroidectomy, closed head injury in 1988, difficulty with mobility and ambulation the patient has been using a walker. has a history of kidney stones Last Myocardial Infarction Date:: 1988 History of Any Multi-Drug Resistant Organisms: None Reported Past Surgical History: Cholecystectomy, Hysterectomy, Tonsillectomy Additional Past Surgical History / Comment(s): Thyroidectomy, lymph node and liver biopsies. port a cath 11-06-17, right ureteroscopy with lithotripsy 12/2014 Past Anesthesia/Blood Transfusion Reactions: Postoperative Nausea & Vomiting ( PONV) Smoking Status: Never smoker - Past Family History Mother Family Medical History: Cancer Additional Family Medical History / Comment(s): breast CA Father Family Medical History: Cancer Additional Family Medical History / Comment(s): colon CA Sister(s) Family Medical History: Cancer Additional Family Medical History / Comment(s): Skin cancer Medications and Allergies Home Medications Medication Instructions Recorded Confirmed Type Furosemide 20 mg PO BID 09/19/13 11/30/17 History Gabapentin 100 mg PO QAM 09/19/13 11/30/17 History Potassium Chloride [Klor-Con 10] 10 meq PO DAILY 09/19/13 11/30/17 History Gabapentin [Neurontin] 200 mg PO HS 12/05/14 11/30/17 History Levothyroxine Sodium [Synthroid] 125 mcg PO MOTUWETHFRSA 12/05/14 11/30/17 History metFORMIN HCL 1,000 mg PO BID PRN 12/05/14 11/30/17 History Cetirizine HCl [Zyrtec] 10 mg PO HS 05/24/17 11/30/17 History Glimepiride [Amaryl] 2 mg PO DAILY PRN 05/24/17 11/30/17 History Multivitamins, Thera [Multivitamin 1 tab PO DAILY 05/24/17 11/30/17 History (formulary)] ALPRAZolam [Xanax] 0.5 - 1 mg PO DAILY PRN 06/12/17 11/30/17 History Atorvastatin Calcium [Lipitor] 40 mg PO HS 06/12/17 11/30/17 History Citalopram Hydrobromide [CeleXA] 20 mg PO DAILY 10/22/17 11/30/17 History Ondansetron HCl [Zofran] 8 mg PO Q6H PRN 11/30/17 11/30/17 History Pantoprazole [Protonix] 40 mg PO DAILY 11/30/17 11/30/17 History Super B Complex 1 tab PO DAILY 11/30/17 11/30/17 History predniSONE 100 mg PO DIRECTED 11/30/17 11/30/17 History Allergies Allergy/AdvReac Type Severity Reaction Status Date / Time haloperidol [From Haldol] Allergy Unknown Verified 11/30/17 13:04 haloperidol lactate Allergy Unknown Verified 11/30/17 13:04 [From Haldol] Iodinated Contrast- Oral and Allergy Rash/Hives Verified 11/30/17 13:04 IV Dye [Iodinated Contrast Media - IV Dye] ciprofloxacin [From Cipro] AdvReac Heartburn Verified 11/30/17 13:04 steri-strips AdvReac Severe sore Uncoded 11/30/17 12:30 Surgical - Exam Vital Signs Temp Pulse Resp BP Pulse Ox 99.2 F 109 H 18 74/44 95 11/30/17 12:30 11/30/17 12:30 11/30/17 12:30 11/30/17 12:30 11/30/17 12:30 - General no pain, chronically ill - Neck no masses, no lymphadectomy - Respiratory normal respiratory effort - Abdomen Abdomen: soft, non tender, no organomegaly, no guarding Results - Labs 12/01/17 05:04 12/01/17 05:04 Abnormal Lab Results - Last 24 Hours (Table) 11/30/17 11/30/17 11/30/17 Range/Units 12:56 12:56 12:56 WBC 1.6 L (3.8-10.6) k/uL RBC 3.78 L (3.80-5.40) m/uL Hgb 9.3 L (11.4-16.0) gm/dL Hct 30.4 L (34.0-46.0) % MCH 24.6 L (25.0-35.0) pg MCHC 30.6 L (31.0-37.0) g/dL RDW 16.8 H (11.5-15.5) % Neutrophils # (Manual) 0.90 L (1.3-7.7) k/uL Lymphocytes # (Manual) 0.27 L (1.0-4.8) k/uL Metamyelocytes # (Man) 0.02 H (0) k/uL Myelocytes # (Manual) 0.02 H (0) k/uL INR 1.2 H (<1.2) Sodium 134 L (137-145) mmol/L Potassium 3.3 L (3.5-5.1) mmol/L Chloride (98-107) mmol/L Carbon Dioxide 21 L (22-30) mmol/L BUN 24 H (7-17) mg/dL Creatinine 1.12 H (0.52-1.04) mg/dL Glucose 247 H (74-99) mg/dL POC Glucose (mg/dL) (75-99) mg/dL Calcium 7.6 L (8.4-10.2) mg/dL Magnesium (1.6-2.3) mg/dL Alkaline Phosphatase 147 H (38-126) U/L Total Protein 5.4 L (6.3-8.2) g/dL Albumin 2.6 L (3.5-5.0) g/dL Urine Appearance (Clear) Urine Protein (Negative) Urine Ketones (Negative) Urine Blood (Negative) Urine RBC (0-5) /hpf Urine Mucus (None) /hpf 11/30/17 11/30/17 11/30/17 Range/Units 12:56 18:50 20:49 WBC (3.8-10.6) k/uL RBC (3.80-5.40) m/uL Hgb (11.4-16.0) gm/dL Hct (34.0-46.0) % MCH (25.0-35.0) pg MCHC (31.0-37.0) g/dL RDW (11.5-15.5) % Neutrophils # (Manual) (1.3-7.7) k/uL Lymphocytes # (Manual) (1.0-4.8) k/uL Metamyelocytes # (Man) (0) k/uL Myelocytes # (Manual) (0) k/uL INR (<1.2) Sodium (137-145) mmol/L Potassium (3.5-5.1) mmol/L Chloride (98-107) mmol/L Carbon Dioxide (22-30) mmol/L BUN (7-17) mg/dL Creatinine (0.52-1.04) mg/dL Glucose (74-99) mg/dL POC Glucose (mg/dL) 269 H (75-99) mg/dL Calcium (8.4-10.2) mg/dL Magnesium 1.0 L (1.6-2.3) mg/dL Alkaline Phosphatase (38-126) U/L Total Protein (6.3-8.2) g/dL Albumin (3.5-5.0) g/dL Urine Appearance Cloudy H (Clear) Urine Protein Trace H (Negative) Urine Ketones Trace H (Negative) Urine Blood Small H (Negative) Urine RBC 11 H (0-5) /hpf Urine Mucus Rare H (None) /hpf 11/30/17 12/01/17 12/01/17 Range/Units 23:18 05:04 05:04 WBC (3.8-10.6) k/uL RBC 3.40 L (3.80-5.40) m/uL Hgb 8.2 L (11.4-16.0) gm/dL Hct 27.4 L (34.0-46.0) % MCH 24.0 L (25.0-35.0) pg MCHC 29.8 L (31.0-37.0) g/dL RDW 17.1 H (11.5-15.5) % Neutrophils # (Manual) (1.3-7.7) k/uL Lymphocytes # (Manual) (1.0-4.8) k/uL Metamyelocytes # (Man) (0) k/uL Myelocytes # (Manual) (0) k/uL INR (<1.2) Sodium (137-145) mmol/L Potassium (3.5-5.1) mmol/L Chloride 109 H (98-107) mmol/L Carbon Dioxide 16 L (22-30) mmol/L BUN 28 H (7-17) mg/dL Creatinine 1.19 H (0.52-1.04) mg/dL Glucose 316 H (74-99) mg/dL POC Glucose (mg/dL) 289 H (75-99) mg/dL Calcium 7.0 L (8.4-10.2) mg/dL Magnesium 1.2 L (1.6-2.3) mg/dL Alkaline Phosphatase (38-126) U/L Total Protein (6.3-8.2) g/dL Albumin (3.5-5.0) g/dL Urine Appearance (Clear) Urine Protein (Negative) Urine Ketones (Negative) Urine Blood (Negative) Urine RBC (0-5) /hpf Urine Mucus (None) /hpf 12/01/17 Range/Units 07:25 WBC (3.8-10.6) k/uL RBC (3.80-5.40) m/uL Hgb (11.4-16.0) gm/dL Hct (34.0-46.0) % MCH (25.0-35.0) pg MCHC (31.0-37.0) g/dL RDW (11.5-15.5) % Neutrophils # (Manual) (1.3-7.7) k/uL Lymphocytes # (Manual) (1.0-4.8) k/uL Metamyelocytes # (Man) (0) k/uL Myelocytes # (Manual) (0) k/uL INR (<1.2) Sodium (137-145) mmol/L Potassium (3.5-5.1) mmol/L Chloride (98-107) mmol/L Carbon Dioxide (22-30) mmol/L BUN (7-17) mg/dL Creatinine (0.52-1.04) mg/dL Glucose (74-99) mg/dL POC Glucose (mg/dL) 363 H (75-99) mg/dL Calcium (8.4-10.2) mg/dL Magnesium (1.6-2.3) mg/dL Alkaline Phosphatase (38-126) U/L Total Protein (6.3-8.2) g/dL Albumin (3.5-5.0) g/dL Urine Appearance (Clear) Urine Protein (Negative) Urine Ketones (Negative) Urine Blood (Negative) Urine RBC (0-5) /hpf Urine Mucus (None) /hpf Microbiology - Last 24 Hours (Table) 11/30/17 18:50 Urine Culture - Preliminary Urine,Catheterized Diabetes panel 11/30/17 12/01/17 Range/Units 12:56 05:04 Sodium 134 L 138 (137-145) mmol/L Potassium 3.3 L 3.8 (3.5-5.1) mmol/L Chloride 100 109 H (98-107) mmol/L Carbon Dioxide 21 L 16 L (22-30) mmol/L BUN 24 H 28 H (7-17) mg/dL Creatinine 1.12 H 1.19 H (0.52-1.04) mg/dL Glucose 247 H 316 H (74-99) mg/dL Calcium 7.6 L 7.0 L (8.4-10.2) mg/dL AST 22 (14-36) U/L ALT 36 (9-52) U/L Alkaline Phosphatase 147 H (38-126) U/L Total Protein 5.4 L (6.3-8.2) g/dL Albumin 2.6 L (3.5-5.0) g/dL Calcium panel 11/30/17 12/01/17 Range/Units 12:56 05:04 Calcium 7.6 L 7.0 L (8.4-10.2) mg/dL Phosphorus 3.4 (2.5-4.5) mg/dL Albumin 2.6 L (3.5-5.0) g/dL Pituitary panel 11/30/17 12/01/17 Range/Units 12:56 05:04 Sodium 134 L 138 (137-145) mmol/L Potassium 3.3 L 3.8 (3.5-5.1) mmol/L Chloride 100 109 H (98-107) mmol/L Carbon Dioxide 21 L 16 L (22-30) mmol/L BUN 24 H 28 H (7-17) mg/dL Creatinine 1.12 H 1.19 H (0.52-1.04) mg/dL Glucose 247 H 316 H (74-99) mg/dL Calcium 7.6 L 7.0 L (8.4-10.2) mg/dL Adrenal panel 11/30/17 12/01/17 Range/Units 12:56 05:04 Sodium 134 L 138 (137-145) mmol/L Potassium 3.3 L 3.8 (3.5-5.1) mmol/L Chloride 100 109 H (98-107) mmol/L Carbon Dioxide 21 L 16 L (22-30) mmol/L BUN 24 H 28 H (7-17) mg/dL Creatinine 1.12 H 1.19 H (0.52-1.04) mg/dL Glucose 247 H 316 H (74-99) mg/dL Calcium 7.6 L 7.0 L (8.4-10.2) mg/dL Total Bilirubin 0.6 (0.2-1.3) mg/dL AST 22 (14-36) U/L ALT 36 (9-52) U/L Alkaline Phosphatase 147 H (38-126) U/L Total Protein 5.4 L (6.3-8.2) g/dL Albumin 2.6 L (3.5-5.0) g/dL Assessment and Plan (1) Left ureteral calculus Narrative/Plan: The patient's computed tomography scan identified a calculus in the proximal left ureter measuring less than 2 mm in size. There did not appear to be any significant hydronephrosis. I reviewed a computed tomography scan of the abdomen performed in 09/2017 and the calculus was not visible at that time. Her urinalysis showed 11 red cells, 4 white cells and rare mucus and was nitrite negative. The patient has no pain referrable to the left side of the abdomen or flank and I believe the likelihood that she has infected urine complicating the ureteral calculus is low. Given the small size of the calculus there is a reasonably good chance that this will pass spontaneously. The patient should strain her urine has she will probably not feel the stone pass from the bladder. The patient has a nonobstructive 3 mm right renal calculus and no specific treatment of this is necessary at this time. Current Visit: Yes Status: Acute Code(s): N20.1 - CALCULUS OF URETER SNOMED Code(s): 77133632
[2017-12-01] MEDS: GABAPENTIN 100 MG CAP PO SCH ×2 (08:11→20:36)
[2017-12-01] MEDS: CITALOPRAM HYDROBROMIDE 20 MG TAB PO SCH (08:11)
[2017-12-01] MEDS: POTASSIUM CHLORIDE ER 10 MEQ TAB.ER.PRT PO SCH (08:12)
[2017-12-01 08:21] LABS: Glucose,Whole Blood 346 mg/dL (75-99)
[2017-12-01 08:22] LABS: Band Neutrophils % 24 %; Crenated RBC Present; Dohle Bodies Present; Lymphocytes # (M) 0.05 k/uL (1.0-4.8); Metamyelocytes % 2 %; Monocytes # (M) 0.52 k/uL (0-1.0); Neutrophils % (M) 65 %; Nucleated Red Blood Cells 0 /100 WBC (0-0); Total Cells Counted 200; Toxic Granulation Present
[2017-12-01 08:23] LABS: Poikilocytosis (M) Present; Polychromasia Present
[2017-12-01] MEDS ORDERED: INSULIN REGULAR BOLUS (FROM DRIP BAG) IV PRN (08:54)
[2017-12-01] MEDS: FILGRASTIM-SNDZ 480 MCG/0.8 ML SYRINGE SQ SCH ×2 (09:17→14:08)
[2017-12-01 09:26] LABS: Glucose,Whole Blood 348 mg/dL (75-99)
--- NOTE | 2017-12-01 09:30 | P.PN ---
Subjective Progress Note Date: 12/01/17 67-year-old female patient with known history of non-Hodgkin's lymphoma with involvement of the liver on the lung who was transferred to the emergency department from her oncologist office because of hypotension and tachycardia. The patient presented to the ED having extreme fatigue and some degree of abdominal discomfort more so in the upper abdomen compared to the lower. She denied having any recent fever. The daughter however told me that the patient was having a low-grade fever of 100.4. She did admit to have some loose liquidy bowel movements 2 bouts yesterday and one bout this morning. No recent antibiotic use. The patient has a Mediport over the right chest area the site of which is clean and that is no erythema and the port is functioning well. She denied having any cough or sputum production. No reported nausea or vomiting or emesis. No chest pain. No angina. Her blood work showed that the patient was neutropenic with a white cell count of 1.6. She had a hemoglobin of 9.3 with a platelet count of 167. Her BUN was 24 with a creatinine of 1.1. She had no significant metabolic acidosis. The patient lactic acid level was at 1.7 at a time of initial evaluation. Liver function tests are also within normal limits. She was unable to give a UA and she refused and declined a Sinclair catheter insertion. The patient was started already on a combination of cefepime and vancomycin. She was found to be hypotensive and she received 2 L of IV fluid without much response and her blood pressure in general. Note that her systolic blood pressure was 74 with a diastolic of 44. At one point, her blood pressure was as low as 69/38. Her heart rate was around 109 and with fluid resuscitation dropped down to 83. She was also started on pressors after 2-1/2 L of IV fluid and pulmonary critical care consultation was requested. CAT scan of the abdomen was done and showed a 3 mm left proximal ureteral stone with obstruction and mild left hydronephrosis. The patient has fluid-filled loops of small bowel with wall thickening and extensive diverticular changes within the colon. Retroperitoneal adenopathy was again described by the CAT scan. There was normal aorta, normal pancreas and spleen, multiple hypodense lesions within the liver noted suggestive of metastatic foci and the patient is postcholecystectomy. Note that this patient lymphoma was a recent diagnosis. She was initially seen in 05/14. The patient had presented with some chest pain. She had a computed tomography scan done to assess for aortic aneurysm, which incidentally revealed upper retroperitoneal lymph nodes. The patient subsequently had a lymph node biopsy which was positive for low-grade non-Hodgkin's lymphoma, with marginal zone lymphoma favored. The patient then had a PET scan done, which showed uptake limited to upper left retroperitoneal area, as well as uptake in the liver. The patient had an MRI of the liver which was not conclusive in terms of ruling in or ruling out liver involvement. She therefore underwent liver biopsy in 07/14 which showed no evidence of lymphoma involvement. It did show evidence of inflammation and steatosis. 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 As the patient was asymptomatic, she was placed on observation which is the standard of care for stage IV low-grade non-Hodgkin lymphoma. Patient was recently started on systemic chemotherapy knowing that the bone marrow biopsy also showed conversion to a high-grade lymphoma and the patient was given a first cycle of systemic chemotherapy that included Cytoxan, Rituxan and high-dose prednisone. The patient was also given Neulasta for neutropenia post chemotherapy. On 12/01/2017, I'm seeing this patient for a follow-up. She is awake and alert and communicating and there is no altered mentation. She is on pressors and she is currently on 2 mics of norepinephrine infusion for blood pressure control. She is producing adequate amount of urine output. Sinclair catheter was inserted. No indication of an underlying UTI based on the UA. The patient was seen by urology regarding the left ureteral calculus and left hydronephrosis. No suggestions for any immediate interventions regarding this issue. The patient is afebrile. The patient has been resuscitated aggressively with IV fluids and her urine output is also improved. On today's blood work, the white cell count is up to 5.2. Her renal function is stable with a creatinine of 1.1. Serum bicarb is down to 16. This is a non-anion gap metabolic acidosis a a anion gap of 13. The patient is receiving stress dose hydrocortisone. The blood sugar is elevated above 300. The patient was started on insulin drip. White cell count is up to 5.2. She still has some vague abdominal discomfort without any active diarrhea. No dysuria fixed urgency. Sinclair catheter is in place. Objective - Vital Signs Vital signs: Vital Signs Temp 97.6 F 12/01/17 08:00 Pulse 63 12/01/17 08:30 Resp 18 12/01/17 08:30 BP 104/50 12/01/17 08:30 Pulse Ox 96 12/01/17 08:30 Intake & Output 11/30/17 12/01/17 12/01/17 18:59 06:59 18:59 Intake Total 93.437 431.190 329.75 Output Total 805 70 Balance 93.437 -373.810 259.75 Weight 63.957 kg 70 kg Intake: IV 155 40 0.9 155 40 Intake, IV Titration 93.437 276.190 289.75 Amount Norepinephrine 4 mg In 93.437 125.449 Sodium Chloride 0.9% 250 ml @ Titrate IV .Q0M [facility] Rx#:[id number] Norepinephrine 4 mg In 150.741 39.75 Sodium Chloride 0.9% 250 ml @ Titrate IV .Q0M [facility] Rx#:[id number] Vancomycin 1,250 mg In 250 Sodium Chloride 0.9% 250 ml @ 125 mls/hr IVPB Q24H [facility] Rx#:[id number] Output: Urine 805 70 Other: Voiding Method Indwelling Catheter - Exam - Constitutional General appearance: no acute distress - EENT Eyes: EOMI, PERRLA ENT: hearing grossly normal, normal oropharynx - Neck Neck: no lymphadenopathy - Respiratory Respiratory: bilateral: CTA - Cardiovascular Rhythm: regular Heart sounds: normal: S1, S2 - Gastrointestinal General gastrointestinal: normal bowel sounds, soft - Integumentary Integumentary: normal - Neurologic Neurologic: CNII-XII intact - Musculoskeletal Musculoskeletal: strength equal bilaterally - Psychiatric Psychiatric: A&O x's 3, appropriate affect Results - Labs CBC & Chem 7: 12/01/17 05:04 12/01/17 05:04 Labs: Abnormal Lab Results - Last 24 Hours (Table) 11/30/17 11/30/17 11/30/17 Range/Units 12:56 12:56 12:56 WBC 1.6 L (3.8-10.6) k/uL RBC 3.78 L (3.80-5.40) m/uL Hgb 9.3 L (11.4-16.0) gm/dL Hct 30.4 L (34.0-46.0) % MCH 24.6 L (25.0-35.0) pg MCHC 30.6 L (31.0-37.0) g/dL RDW 16.8 H (11.5-15.5) % Neutrophils # (Manual) 0.90 L (1.3-7.7) k/uL Lymphocytes # (Manual) 0.27 L (1.0-4.8) k/uL Metamyelocytes # (Man) 0.02 H (0) k/uL Myelocytes # (Manual) 0.02 H (0) k/uL INR 1.2 H (<1.2) Sodium 134 L (137-145) mmol/L Potassium 3.3 L (3.5-5.1) mmol/L Chloride (98-107) mmol/L Carbon Dioxide 21 L (22-30) mmol/L BUN 24 H (7-17) mg/dL Creatinine 1.12 H (0.52-1.04) mg/dL Glucose 247 H (74-99) mg/dL POC Glucose (mg/dL) (75-99) mg/dL Calcium 7.6 L (8.4-10.2) mg/dL Magnesium (1.6-2.3) mg/dL Alkaline Phosphatase 147 H (38-126) U/L Total Protein 5.4 L (6.3-8.2) g/dL Albumin 2.6 L (3.5-5.0) g/dL Urine Appearance (Clear) Urine Protein (Negative) Urine Ketones (Negative) Urine Blood (Negative) Urine RBC (0-5) /hpf Urine Mucus (None) /hpf 11/30/17 11/30/17 11/30/17 Range/Units 12:56 18:50 20:49 WBC (3.8-10.6) k/uL RBC (3.80-5.40) m/uL Hgb (11.4-16.0) gm/dL Hct (34.0-46.0) % MCH (25.0-35.0) pg MCHC (31.0-37.0) g/dL RDW (11.5-15.5) % Neutrophils # (Manual) (1.3-7.7) k/uL Lymphocytes # (Manual) (1.0-4.8) k/uL Metamyelocytes # (Man) (0) k/uL Myelocytes # (Manual) (0) k/uL INR (<1.2) Sodium (137-145) mmol/L Potassium (3.5-5.1) mmol/L Chloride (98-107) mmol/L Carbon Dioxide (22-30) mmol/L BUN (7-17) mg/dL Creatinine (0.52-1.04) mg/dL Glucose (74-99) mg/dL POC Glucose (mg/dL) 269 H (75-99) mg/dL Calcium (8.4-10.2) mg/dL Magnesium 1.0 L (1.6-2.3) mg/dL Alkaline Phosphatase (38-126) U/L Total Protein (6.3-8.2) g/dL Albumin (3.5-5.0) g/dL Urine Appearance Cloudy H (Clear) Urine Protein Trace H (Negative) Urine Ketones Trace H (Negative) Urine Blood Small H (Negative) Urine RBC 11 H (0-5) /hpf Urine Mucus Rare H (None) /hpf 11/30/17 12/01/17 12/01/17 Range/Units 23:18 05:04 05:04 WBC (3.8-10.6) k/uL RBC 3.40 L (3.80-5.40) m/uL Hgb 8.2 L (11.4-16.0) gm/dL Hct 27.4 L (34.0-46.0) % MCH 24.0 L (25.0-35.0) pg MCHC 29.8 L (31.0-37.0) g/dL RDW 17.1 H (11.5-15.5) % Neutrophils # (Manual) (1.3-7.7) k/uL Lymphocytes # (Manual) 0.05 L (1.0-4.8) k/uL Metamyelocytes # (Man) 0.10 H (0) k/uL Myelocytes # (Manual) (0) k/uL INR (<1.2) Sodium (137-145) mmol/L Potassium (3.5-5.1) mmol/L Chloride 109 H (98-107) mmol/L Carbon Dioxide 16 L (22-30) mmol/L BUN 28 H (7-17) mg/dL Creatinine 1.19 H (0.52-1.04) mg/dL Glucose 316 H (74-99) mg/dL POC Glucose (mg/dL) 289 H (75-99) mg/dL Calcium 7.0 L (8.4-10.2) mg/dL Magnesium 1.2 L (1.6-2.3) mg/dL Alkaline Phosphatase (38-126) U/L Total Protein (6.3-8.2) g/dL Albumin (3.5-5.0) g/dL Urine Appearance (Clear) Urine Protein (Negative) Urine Ketones (Negative) Urine Blood (Negative) Urine RBC (0-5) /hpf Urine Mucus (None) /hpf 12/01/17 12/01/17 Range/Units 07:25 08:20 WBC (3.8-10.6) k/uL RBC (3.80-5.40) m/uL Hgb (11.4-16.0) gm/dL Hct (34.0-46.0) % MCH (25.0-35.0) pg MCHC (31.0-37.0) g/dL RDW (11.5-15.5) % Neutrophils # (Manual) (1.3-7.7) k/uL Lymphocytes # (Manual) (1.0-4.8) k/uL Metamyelocytes # (Man) (0) k/uL Myelocytes # (Manual) (0) k/uL INR (<1.2) Sodium (137-145) mmol/L Potassium (3.5-5.1) mmol/L Chloride (98-107) mmol/L Carbon Dioxide (22-30) mmol/L BUN (7-17) mg/dL Creatinine (0.52-1.04) mg/dL Glucose (74-99) mg/dL POC Glucose (mg/dL) 363 H 346 H (75-99) mg/dL Calcium (8.4-10.2) mg/dL Magnesium (1.6-2.3) mg/dL Alkaline Phosphatase (38-126) U/L Total Protein (6.3-8.2) g/dL Albumin (3.5-5.0) g/dL Urine Appearance (Clear) Urine Protein (Negative) Urine Ketones (Negative) Urine Blood (Negative) Urine RBC (0-5) /hpf Urine Mucus (None) /hpf Microbiology - Last 24 Hours (Table) 11/30/17 18:50 Urine Culture - Preliminary Urine,Catheterized Assessment and Plan Plan: Assessment 1 acute hypotension, likely of a septic in nature. The patient is neutropenic and absolute neutrophil count is less than the thousand. The patient's echo is improved and currently up to 5.0. The patient is currently on 2 mics of norepinephrine infusion. The patient was resuscitated IV fluids. The patient was placed on broad-spectrum antibiotics including a combination of cefepime, Flagyl and vancomycin. Cultures are negative thus far. She did have some loose liquidy diarrhea which is currently stopped and the patient was seen by urology regarding the left ureteral stone and hydronephrosis. The UA was negative and the patient was seen by urology and based on their assessment the hydronephrosis is not significant and there is no need for any immediate intervention at this point in time. The calculus is probably small and its will pass spontaneously. 2 stage IV non-Hodgkin's lymphoma low-grade 3 obstructive uropathy with left ureteral stone and hydronephrosis, see urology' s evaluation 4 anemia, normocytic likely chronic 5 obstructive sleep apnea 6 hypothyroidism 7 hyperlipidemia 8 diabetes mellitus 9 history of closed head injury 10 non-anion gap metabolic acidosis, probably related to diarrhea. Plan Continue IV fluids at 125 mL an hour of normal saline. Continue stress dose hydrocortisone 50 mg every 8 hours that the patient was taken steroids on outpatient basis. Continue pressors to maintain a mean artery pressure above 65. The patient has a Mediport in place. We will utilize a Mediport in addition to the peripheral lines. Continue same antibiotic coverage. Patient is on cefepime and vancomycin and Flagyl for any possibility of underlying enteritis/colitis. Check stool for C. diff if there is any recurrent diarrhea. Urology consultation was appreciated regarding the ureteral stone. May need to consult with oncology regarding the need for zarxio and the patient was started on insulin drip for blood sugar control. We'll keep her in the ICU as long as she is pressor dependent. We will continue to follow. Oncology has been consulted. Obtain a baseline echocardiogram also.
[2017-12-01] MEDS: INSULIN REGULAR 100 UNIT in SODIUM CHLORIDE 0.9% 100 ML IV SCH ×2 (09:40→14:17)
[2017-12-01 10:11] LABS: Glucose,Whole Blood 352 mg/dL (75-99)
[2017-12-01 10:41] LABS: Glucose,Whole Blood 310 mg/dL (75-99)
[2017-12-01 11:03] LABS: Glucose,Whole Blood 293 mg/dL (75-99)
[2017-12-01] MEDS: SODIUM CHLORIDE 0.9% 1,000 ML IV SCH ×2 (11:39→18:23)
[2017-12-01] MEDS: MULTIVITAMINS, THERA 1 EACH TAB PO SCH (11:42)
[2017-12-01] MEDS: HYDROcodone/APAP 7.5-325MG 1 EACH TAB PO PRN (11:45)
[2017-12-01 11:55] LABS: Glucose,Whole Blood 248 mg/dL (75-99)
--- NOTE | 2017-12-01 12:48 | ECHOF ---
Referral Reason:hypotension MEASUREMENTS -------- HEIGHT: 157.5 cm WEIGHT: 69.9 kg BP: 104/49 RVIDd: 2.3 cm (< 3.3) IVSd: 1.2 cm (0.6 - 1.1) LVIDd: 4.6 cm (3.9 - 5.3) LVPWd: 0.9 cm (0.6 - 1.1) IVSs: 1.4 cm LVIDs: 3.5 cm LVPWs: 1.2 cm Ao Diam: 2.9 cm (2.0 - 3.7) AV Cusp: 2.0 cm (1.5 - 2.6) LA Diam: 2.6 cm (2.7 - 3.8) MV EXCURSION: 17.310 mm (> 18.000) MV EF SLOPE: 55 mm/s (70 - 150) EPSS: 1.3 cm MV E Marek: 0.86 m/s MV DecT: 277 ms MV A Marek: 0.76 m/s MV E/A Ratio: 1.14 RAP: 5.00 mmHg RVSP: 21.90 mmHg FINDINGS -------- Sinus rhythm. Resting bradycardia (HR<60bpm). This was a technically good study. The left ventricular size is normal. There is borderline concentric left ventricular hypertrophy. Overall left ventricular systolic function is normal with, an EF between 55 - 60 %. The right ventricle is normal in size. The left atrium is normal in size. The right atrium is normal in size. The aortic valve is trileaflet, and appears structurally normal. No aortic stenosis or regurgitation. The mitral valve is normal. There is trace to mild mitral regurgitation. Mild tricuspid regurgitation present. The right ventricular systolic pressure, as measured by Doppl er, is 21.90mmHg. There is no pulmonic regurgitation present. The aortic root size is normal. Normal inferior vena cava with normal inspiratory collapse consistent with estimated right atrial pre ssure of 5 mmHg. There is no pericardial effusion. CONCLUSIONS -------- 1. Sinus rhythm. 2. Resting bradycardia (HR<60bpm). 3. This was a technically good study. 4. The left ventricular size is normal. 5. There is borderline concentric left ventricular hypertrophy. 6. Overall left ventricular systolic function is normal with, an EF between 55 - 60 %. 7. The left atrium is normal in size. 8. The aortic valve is trileaflet, and appears structurally normal. No aortic stenosis or regurgitati on. 9. There is trace to mild mitral regurgitation. 10. Mild tricuspid regurgitation present. 11. The right ventricular systolic pressure, as measured by Doppler, is 21.90mmHg. 12. There is no pulmonic regurgitation present. 13. The aortic root size is normal. 14. Normal inferior vena cava with normal inspiratory collapse consistent with estimated right atrial pressure of 5 mmHg. 15. There is no pericardial effusion. RELATIONSHIP ASSOCIATE: Ginny Barros RDCS
[2017-12-01 13:09] LABS: Glucose,Whole Blood 179 mg/dL (75-99)
[2017-12-01 14:07] LABS: Glucose,Whole Blood 176 mg/dL (75-99)
[2017-12-01 14:56] LABS: Glucose,Whole Blood 174 mg/dL (75-99)
[2017-12-01 16:32] LABS: Glucose,Whole Blood 165 mg/dL (75-99)
[2017-12-01 17:12] LABS: Glucose,Whole Blood 187 mg/dL (75-99)
[2017-12-01 18:09] LABS: Glucose,Whole Blood 158 mg/dL (75-99)
[2017-12-01 18:59] LABS: Glucose,Whole Blood 141 mg/dL (75-99)
--- NOTE | 2017-12-01 19:47 | HP ---
HISTORY AND PHYSICAL I am covering for Dr. Leonard Solano. HISTORY OF PRESENT ILLNESS: This is a 67-year-old woman with a past history of CHF, history of diabetes, hypertension, hyperlipidemia, history of sleep apnea, history of B-cell non- Hodgkin's lymphoma stage IV, diabetes mellitus type 2, being followed by Dr. Leonard Solano in the outpatient setting. He is receiving chemotherapy. The patient is complaining hypotension and tachycardia from oncologist's office. Patient has features of sepsis on presentation. Patient started on broad-spectrum IV antibiotics. Patient has some diarrhea also. The patient also had a CT scan of the abdomen and pelvis, which showed interval obstructed proximal left ureter calculus and underlying ileus also was suspected. Flagyl was added to the current regimen. Multiple consultants are following the patient closely. A 2D echo with Doppler was also done which showed ejection fraction about 50 to 60%. The patient also had hypotension. As mentioned the patient is on 2 mcg of Levophed at this time. There is no history of fever, rigors. No history of headache, loss of consciousness, seizures. PAST MEDICAL HISTORY: History of CHF, history of diabetes, hypertension, hyperlipidemia, sleep apnea, history of B-cell non-Hodgkin lymphoma, cholecystectomy, anxiety. MEDICATIONS: Prior to admission home medications are: 1. Prednisone 10 mg p.r.n. 2. Metformin 1000 mg b.i.d. p.r.n. 3. Super B complex 1 tablet p.o. daily. 4. Klor-Con 10 mg, p.o. daily. 5. Protonix 40 mg p.o. daily. 6. Zofran 8 mg p.o. q.h.s. p.r.n. 7. Multivitamins 1 p.o. daily. 8. Synthroid 125 mcg p.o. Monday, Monday, Monday, , Monday, Monday. 9. Concepcion 2 mg p.o. daily p.r.n. 10.Neurontin 200 mg p.o. q.h.s. 11.Gabapentin 100 mg p.o. q.a.m. 12.Lasix 10 mg p.o. b.i.d. 13.Celexa 10 mg p.o. daily. 14.Zyrtec 10 mg q.h.s. 15.Lipitor 40 mg p.o. q.h.s. 16.Xanax 0.5 to 1 mg p.o. daily p.r.n. ALLERGIES: HALDOL, IODINATED CONTRAST DYE, CIPRO, STERI-STRIPS. FAMILY HISTORY: History of breast cancer in the family. SOCIAL HISTORY: No history of smoking, no history of alcohol intake. REVIEW OF SYSTEMS: ENT: No diminished hearing or vision. CARDIOVASCULAR: No angina, palpitations. respiratory: As mentioned earlier. GI: No nausea. : No dysuria. NERVOUS SYSTEM: No numbness or weakness. ALLERGY/IMMUNOLOGY: No asthma. MUSCULOSKELETAL: As mentioned earlier. HEMATOLOGY: As mentioned earlier. ENDOCRINE: As mentioned earlier. CONSTITUTIONAL: As mentioned earlier. DERMATOLOGY: Negative. RHEUMATOLOGY: Negative. PSYCHIATRY: As mentioned earlier. PHYSICAL EXAMINATION: Alert and oriented x3. Pulse 53, blood pressure 92/49, respirations 12, temperature 97.4, pulse ox 96% on 2 L. HEENT: Conjunctivae normal. Oral mucosa moist. Neck is no jugular venous distention. No carotid bruit. No lymph node enlargement. CARDIOVASCULAR: S1, S2. No S3, no S4. RESPIRATORY: Breath sounds diminished in the bases. No rhonchi, no crackles. ABDOMEN: Soft. Nontender. No mass palpable. LEGS: No edema, no swelling. NERVOUS SYSTEM: Higher function as mentioned earlier. Moves all four limbs. No focal motor deficits. LYMPHATIC: No lymphadenopathy in the neck, axillae, groin. SKIN: No ulcer, rash, bleeding. LABS: WBC 5, hemoglobin is 8.2, sodium 130, potassium 3.8, and creatinine is 1.19, and Accu- Cheks are 363, 248, 174, 187. Magnesium 1.2. White count is 1.6 at this time. ASSESSMENT: 1. Neutropenic sepsis with a severe sepsis and hypotension, present on admission. 2. Stage IV non-Hodgkin lymphoma, low-grade. 3. Obstructive uropathy with left ureteral stone and hydronephrosis. 4. Anemia, leukopenia. 5. Hypokalemia. 6. Hyponatremia. 7. Increase creatinine with chronic kidney disease stage 3. 8. Diabetes mellitus type 2. 9. Hypocalcemia. 10.Hypomagnesemia. 11.History of congestive heart failure. 12.Diabetes mellitus type 2. 13.Hypertension. 14.Hyperlipidemia. 15.Sleep apnea. 16.History of cholecystitis. 17.Anxiety. 18.Traumatic brain injury. 19.FULL CODE. RECOMMENDATIONS AND DISCUSSION: In this 67-year-old woman who presented with multiple complex medical issues, will monitor the patient closely. Continue the current medications and symptomatic treatment. We will initiate broad-spectrum IV antibiotics. Currently the patient is treated with Vancomycin and Flagyl. Would also recommend cautious IV fluids. The initial chest x-ray was noted. We will also follow with multiple consultants and wait for the awaited cultures. Continue with the pressor support. The prognosis guarded because of multiple complex medical issues. Further recommendations to follow. A copy of dictation forwarded to Dr. Solano who is the primary physician. The initial chest x- ray shows no evidence of any fluid overload at this time. See orders for details. INR is 1.2. As mentioned earlier the cultures are negative so far at this time. MMODL / IJN: [id number] / MTDD
[2017-12-01 20:28] LABS: Glucose,Whole Blood 155 mg/dL (75-99)
[2017-12-01 20:30] LABS: Hemoglobin A1C 7.5 % (4.0-6.0)
[2017-12-01] MEDS: LORATADINE 10 MG TAB PO SCH (20:36)
--- NOTE | 2017-12-01 20:50 | P.CONS ---
History of Present Illness - Reason for Consult Consult date: 12/01/17 - History of Present Illness Ms Ledezma is a 67 yr old white female, initially seen in consult at [facility] on 05/25/17. She had been admitted with lower chest /upper abdominal pain. She was evaluated by internal medicine and cardiology with symptoms resolving spontaneously. She had a CT to evaluate in the outer to rule out aortic aneurysm. This incidentally noted retroperitoneal adenopathy , left greater than right, largest about 4 cm in size. The patient had no obvious symptoms other than mid back pain for the prior 6-8 weeks. However this was not constant. She had a CT of the chest abdomen and pelvis which showed retroperitoneal adenopathy measuring 4.8 x 2.9 cm with some additional upper abdominal adenopathy measuring up to 1.9 cm. No other adenopathy was seen in the thorax or pelvis. CBC was normal other than mild WBC elevation, mostly due to neutropenia. Chem panel was also negative other than creatinine of 1.2. The patient had a retroperitoneal core biopsy on 06/19/17. The biopsy was positive for B-cell non-Hodgkin's lymphoma, CD5 negative. The main differentials included follicular, splenic marginal zone, or LPL. A specimen was sent to [facility] with final diagnosis pending post consultation. the patient was then referred here and seen for her first office visit on . the patient had labs and PET scan ordered. 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 PET scan showed activity in the area of of abdominal adenopathy. No other areas of suspicious activity are noted, except for scattered areas in the liver which could not be well defined. Labs were negative other than elevated Light chain at 10 3 mg/L, versus lambda of 44.7 mg/L, with mild elevation of ratio at 2.35. The patient had an MRI of the liver ordered, which showed multiple suspicious lesions, at least 8 in number. She therefore underwent an ultrasound -guided liver biopsy in early 08/14. This showed a dense lymphocytic infiltrative pattern. However interestingly the majority of the liver cells appear to be reactive T lymphocytes with only a small number of B lymphocytes noted. The pathologic findings are felt to raise the possibility of an inflammatory disorder such as primary biliary cirrhosis. The specimen was been sent to the [facility] for additional consultation, which reported no evidence of malignancy. She had a bone marrow in 09/13 , revealing involvement, and thus stage 4 disease. She was thus placed on observation . She was admitted with severe fatigue and weakness to [facility] in late 10/14. CT scans showed progression in the lymph nodes and liver. She had a liver biopsy on 10/24/17, showing presence of a large and small cell lymphoma population. Double/triple hit testing was negative. she was started on R-CEOP (Adriamycin not use due to diminished ejection fraction) on 11/20/17. She is status post 1 cycle. She was seen in the office on 11/30/17. She denies any fever/chills. she had marked agitation with steroids, which improved with Xanax. She had markedly decreased appetite and progressive weakness. she has been very lethargic, and requiring assistance with even minimal activities. She has been nauseous persistently, with intermittent vomiting. Over the last 1-2 days, she has been having diarrhea with lower abdominal cramping and pain. according to the family , she has been intermittently confused, especially at night. This had improved after stopping the steroids but seemed to have become somewhat more prominent over the last 1-2 days. her blood pressure was quite low in the office, with systolic in the 70 range. She was therefore sent in to the emergency room. The case was discussed in detail with the ER physician. The patient was noted to have tachycardia as well as low blood pressure, that did not respond well to fluids. WBC was 1.6. She was therefore admitted to the ICU, and consult placed for further evaluation and recommendations. CT of the abdomen and pelvis revealed evidence of enteritis, and possibly left hydronephrosis due to renal calculus Review of Systems Constitutional: Reports lethargy, Reports malaise, Reports poor appetite, Reports weight loss Eyes: denies blurred vision, denies pain Ears: deny: decreased hearing, ear discharge, earache, tinnitus Ears, nose, mouth and throat: Denies headache, Denies sore throat Cardiovascular: Reports decreased exercise tolerance Respiratory: Denies cough Gastrointestinal: Reports abdominal pain, Reports diarrhea, Reports nausea, Reports vomiting Genitourinary: Denies dysuria, Denies hematuria Menstruation: Reports postmenopausal Musculoskeletal: Reports muscle weakness Integumentary: Denies pruritus, Denies rash Neurological: Reports change in mentation, Reports confusion, Reports weakness Psychiatric: Reports confusion, Reports irritability Endocrine: Reports fatigue, Reports weight change Hematologic/Lymphatic: Reports as per HPI Past Medical History Past Medical History: Cancer, Heart Failure, Diabetes Mellitus, Hyperlipidemia, Hypertension, Sleep Apnea/CPAP/BIPAP, Thyroid Disorder Additional Past Medical History / Comment(s): B-cell non-Hodgkin's lymphoma stage IV, diabetes mellitus,daughter stated pt had first chemo mon 11-20-17 hypertension, hyperlipidemia, obstructive sleep apnea, hypothyroidism post thyroidectomy, closed head injury in 1988, difficulty with mobility and ambulation the patient has been using a walker. has a history of kidney stones Last Myocardial Infarction Date:: 1988 History of Any Multi-Drug Resistant Organisms: None Reported Past Surgical History: Cholecystectomy, Hysterectomy, Tonsillectomy Additional Past Surgical History / Comment(s): Thyroidectomy, lymph node and liver biopsies. port a cath 11-06-17, right ureteroscopy with lithotripsy 12/2014 Past Anesthesia/Blood Transfusion Reactions: Postoperative Nausea & Vomiting ( PONV) Smoking Status: Never smoker - Past Family History Mother Family Medical History: Cancer Additional Family Medical History / Comment(s): breast CA Father Family Medical History: Cancer Additional Family Medical History / Comment(s): colon CA Sister(s) Family Medical History: Cancer Additional Family Medical History / Comment(s): Skin cancer Medications and Allergies Home Medications Medication Instructions Recorded Confirmed Type Furosemide 20 mg PO BID 09/19/13 11/30/17 History Gabapentin 100 mg PO QAM 09/19/13 11/30/17 History Potassium Chloride [Klor-Con 10] 10 meq PO DAILY 09/19/13 11/30/17 History Gabapentin [Neurontin] 200 mg PO HS 12/05/14 11/30/17 History Levothyroxine Sodium [Synthroid] 125 mcg PO MOTUWETHFRSA 12/05/14 11/30/17 History metFORMIN HCL 1,000 mg PO BID PRN 12/05/14 11/30/17 History Cetirizine HCl [Zyrtec] 10 mg PO HS 05/24/17 11/30/17 History Glimepiride [Amaryl] 2 mg PO DAILY PRN 05/24/17 11/30/17 History Multivitamins, Thera [Multivitamin 1 tab PO DAILY 05/24/17 11/30/17 History (formulary)] ALPRAZolam [Xanax] 0.5 - 1 mg PO DAILY PRN 06/12/17 11/30/17 History Atorvastatin Calcium [Lipitor] 40 mg PO HS 06/12/17 11/30/17 History Citalopram Hydrobromide [CeleXA] 20 mg PO DAILY 10/22/17 11/30/17 History Ondansetron HCl [Zofran] 8 mg PO Q6H PRN 11/30/17 11/30/17 History Pantoprazole [Protonix] 40 mg PO DAILY 11/30/17 11/30/17 History Super B Complex 1 tab PO DAILY 11/30/17 11/30/17 History predniSONE 100 mg PO DIRECTED 11/30/17 11/30/17 History Allergies Allergy/AdvReac Type Severity Reaction Status Date / Time haloperidol [From Haldol] Allergy Unknown Verified 11/30/17 13:04 haloperidol lactate Allergy Unknown Verified 11/30/17 13:04 [From Haldol] Iodinated Contrast- Oral and Allergy Rash/Hives Verified 11/30/17 13:04 IV Dye [Iodinated Contrast Media - IV Dye] ciprofloxacin [From Cipro] AdvReac Heartburn Verified 11/30/17 13:04 steri-strips AdvReac Severe sore Uncoded 11/30/17 12:30 Physical Exam Vitals: Vital Signs Temp Pulse Resp BP Pulse Ox 12/01/17 14:00 61 15 95/48 95 12/01/17 13:30 56 L 15 99/53 97 12/01/17 13:00 55 L 19 91/56 12/01/17 12:30 70 21 104/52 98 12/01/17 12:00 97.1 F L 65 13 99/54 99 12/01/17 11:30 52 L 11 L 87/50 99 12/01/17 11:00 60 11 L 90/52 98 12/01/17 10:30 48 L 11 L 93/50 99 12/01/17 10:00 53 L 12 88/49 98 12/01/17 09:30 51 L 12 85/52 97 12/01/17 09:00 60 11 L 100/57 98 12/01/17 08:30 63 18 104/50 96 12/01/17 08:00 97.6 F 45 L 16 95/52 96 12/01/17 07:30 98.9 F 59 L 24 121/64 98 12/01/17 07:00 52 L 16 102/74 98 12/01/17 06:00 62 12 104/56 99 12/01/17 05:30 60 11 L 118/62 99 12/01/17 05:00 97.7 F 54 L 15 121/66 99 12/01/17 04:30 60 11 L 119/65 99 12/01/17 04:00 54 L 12 126/66 99 12/01/17 03:30 57 L 12 110/62 99 12/01/17 03:00 59 L 11 L 107/59 99 12/01/17 02:30 53 L 13 116/60 99 12/01/17 02:00 97.6 F 52 L 12 109/60 98 12/01/17 01:30 69 11 L 99/58 98 12/01/17 01:00 58 L 12 108/57 98 12/01/17 00:30 53 L 15 137/65 99 12/01/17 00:00 76 24 131/67 100 11/30/17 23:19 97.5 F L 80 20 131/67 96 11/30/17 22:44 53 L 18 124/60 99 11/30/17 22:09 73 18 99/54 99 11/30/17 21:26 96.9 F L 54 L 18 121/65 100 11/30/17 20:30 54 L 18 110/62 100 11/30/17 20:00 58 L 17 100/61 100 11/30/17 19:44 56 L 16 105/60 100 11/30/17 19:08 62 17 104/57 99 11/30/17 18:55 62 16 111/60 99 11/30/17 17:37 97.5 F L 58 L 16 114/58 100 11/30/17 16:34 64 16 102/52 99 Intake and Output 12/01/17 12/01/17 12/01/17 06:59 14:59 22:59 Intake Total 147.999 5047.775 Output Total 405 460 Balance -99.259 1102.775 Intake: IV 155 930 0.9 155 580 Cefepime 2 gm In Sodium 50 Chloride 0.9% 50 ml @ 100 mls/hr IVPB ONCE STA Rx# :[id number] Magnesium Sulfate-D5w Pmx 200 1 gm In Dextrose/Water 1 100ml.bag @ 100 mls/hr IVPB Q1H YVETTE Rx#: [id number] metroNIDAZOLE-NS PMX 500 100 mg In Saline 1 100ml.bag @ 100 mls/hr IVPB Q8HR YVETTE Rx#:[id number] Intake, IV Titration 150.741 392.775 Amount Insulin Regular 100 unit 58.025 In Sodium Chloride 0.9% 100 ml @ Per Protocol IV .Q0M YVETTE Rx#:[id number] Norepinephrine 4 mg In 150.741 84.750 Sodium Chloride 0.9% 250 ml @ Titrate IV .Q0M YVETTE Rx#:[id number] Vancomycin 1,250 mg In 250 Sodium Chloride 0.9% 250 ml @ 125 mls/hr IVPB Q24H YVETTE Rx#:[id number] Oral 240 Output: Urine 405 460 Other: Voiding Method Indwelling Catheter Weight 70 kg - Constitutional General appearance: no acute distress - EENT Eyes: EOMI, PERRLA ENT: hearing grossly normal, normal oropharynx - Neck Neck: no lymphadenopathy Thyroid: bilateral: normal size - Respiratory Respiratory: bilateral: CTA - Cardiovascular Rhythm: regular Heart sounds: normal: S1, S2 - Gastrointestinal General gastrointestinal: normal bowel sounds, soft Localized gastrointestinal: tender: diffuse (Mild, no rebound) - Integumentary Integumentary: normal - Neurologic Neurologic: CNII-XII intact - Musculoskeletal Musculoskeletal: generalized weakness, strength equal bilaterally - Psychiatric Psychiatric: A&O x's 3, appropriate affect Results CBC & Chem 7: 12/01/17 05:04 12/01/17 05:04 Labs: Abnormal Lab Results - Last 24 Hours (Table) 11/30/17 11/30/17 11/30/17 Range/Units 18:50 20:49 23:18 RBC (3.80-5.40) m/uL Hgb (11.4-16.0) gm/dL Hct (34.0-46.0) % MCH (25.0-35.0) pg MCHC (31.0-37.0) g/dL RDW (11.5-15.5) % Lymphocytes # (Manual) (1.0-4.8) k/uL Metamyelocytes # (Man) (0) k/uL Chloride (98-107) mmol/L Carbon Dioxide (22-30) mmol/L BUN (7-17) mg/dL Creatinine (0.52-1.04) mg/dL Glucose (74-99) mg/dL POC Glucose (mg/dL) 269 H 289 H (75-99) mg/dL Calcium (8.4-10.2) mg/dL Magnesium (1.6-2.3) mg/dL Urine Appearance Cloudy H (Clear) Urine Protein Trace H (Negative) Urine Ketones Trace H (Negative) Urine Blood Small H (Negative) Urine RBC 11 H (0-5) /hpf Urine Mucus Rare H (None) /hpf 12/01/17 12/01/17 12/01/17 Range/Units 05:04 05:04 07:25 RBC 3.40 L (3.80-5.40) m/uL Hgb 8.2 L (11.4-16.0) gm/dL Hct 27.4 L (34.0-46.0) % MCH 24.0 L (25.0-35.0) pg MCHC 29.8 L (31.0-37.0) g/dL RDW 17.1 H (11.5-15.5) % Lymphocytes # (Manual) 0.05 L (1.0-4.8) k/uL Metamyelocytes # (Man) 0.10 H (0) k/uL Chloride 109 H (98-107) mmol/L Carbon Dioxide 16 L (22-30) mmol/L BUN 28 H (7-17) mg/dL Creatinine 1.19 H (0.52-1.04) mg/dL Glucose 316 H (74-99) mg/dL POC Glucose (mg/dL) 363 H (75-99) mg/dL Calcium 7.0 L (8.4-10.2) mg/dL Magnesium 1.2 L (1.6-2.3) mg/dL Urine Appearance (Clear) Urine Protein (Negative) Urine Ketones (Negative) Urine Blood (Negative) Urine RBC (0-5) /hpf Urine Mucus (None) /hpf 12/01/17 12/01/17 12/01/17 Range/Units 08:20 09:22 10:10 RBC (3.80-5.40) m/uL Hgb (11.4-16.0) gm/dL Hct (34.0-46.0) % MCH (25.0-35.0) pg MCHC (31.0-37.0) g/dL RDW (11.5-15.5) % Lymphocytes # (Manual) (1.0-4.8) k/uL Metamyelocytes # (Man) (0) k/uL Chloride (98-107) mmol/L Carbon Dioxide (22-30) mmol/L BUN (7-17) mg/dL Creatinine (0.52-1.04) mg/dL Glucose (74-99) mg/dL POC Glucose (mg/dL) 346 H 348 H 352 H (75-99) mg/dL Calcium (8.4-10.2) mg/dL Magnesium (1.6-2.3) mg/dL Urine Appearance (Clear) Urine Protein (Negative) Urine Ketones (Negative) Urine Blood (Negative) Urine RBC (0-5) /hpf Urine Mucus (None) /hpf 12/01/17 12/01/17 12/01/17 Range/Units 10:39 11:01 11:53 RBC (3.80-5.40) m/uL Hgb (11.4-16.0) gm/dL Hct (34.0-46.0) % MCH (25.0-35.0) pg MCHC (31.0-37.0) g/dL RDW (11.5-15.5) % Lymphocytes # (Manual) (1.0-4.8) k/uL Metamyelocytes # (Man) (0) k/uL Chloride (98-107) mmol/L Carbon Dioxide (22-30) mmol/L BUN (7-17) mg/dL Creatinine (0.52-1.04) mg/dL Glucose (74-99) mg/dL POC Glucose (mg/dL) 310 H 293 H 248 H (75-99) mg/dL Calcium (8.4-10.2) mg/dL Magnesium (1.6-2.3) mg/dL Urine Appearance (Clear) Urine Protein (Negative) Urine Ketones (Negative) Urine Blood (Negative) Urine RBC (0-5) /hpf Urine Mucus (None) /hpf 12/01/17 12/01/17 12/01/17 Range/Units 13:06 14:05 14:54 RBC (3.80-5.40) m/uL Hgb (11.4-16.0) gm/dL Hct (34.0-46.0) % MCH (25.0-35.0) pg MCHC (31.0-37.0) g/dL RDW (11.5-15.5) % Lymphocytes # (Manual) (1.0-4.8) k/uL Metamyelocytes # (Man) (0) k/uL Chloride (98-107) mmol/L Carbon Dioxide (22-30) mmol/L BUN (7-17) mg/dL Creatinine (0.52-1.04) mg/dL Glucose (74-99) mg/dL POC Glucose (mg/dL) 179 H 176 H 174 H (75-99) mg/dL Calcium (8.4-10.2) mg/dL Magnesium (1.6-2.3) mg/dL Urine Appearance (Clear) Urine Protein (Negative) Urine Ketones (Negative) Urine Blood (Negative) Urine RBC (0-5) /hpf Urine Mucus (None) /hpf Microbiology - Last 24 Hours (Table) 11/30/17 12:56 Blood Culture - Preliminary Blood No Growth after 24 hours 11/30/17 18:50 Urine Culture - Preliminary Urine,Catheterized Comments: Echo report reviewed Chest x-ray: report reviewed CT scan - abdomen: report reviewed CT scan - pelvis: report reviewed Assessment and Plan (1) Febrile neutropenia Narrative/Plan: The pt had one episode of fever. There is no definite source, other than the abdomen. Continue antibiotics. Await cultures, including stool studies. Pt was started on GCSF, and has increased WBC today. Stop GCSF after today's dose Current Visit: Yes Status: Acute Code(s): D70.9 - NEUTROPENIA, UNSPECIFIED; R50.81 - FEVER PRESENTING WITH CONDITIONS CLASSIFIED ELSEWHERE SNOMED Code(s) : 342807416 (2) Sepsis Narrative/Plan: The pt was very hyprotensive on admission, and has required ICU care and pressor support, along with aggressive fluid resuscitation. Her BP is improved and she is currently off pressors. Continue antibiotics and management per [facility], and the admitting service Current Visit: Yes Status: Acute Code(s): A41.9 - SEPSIS, UNSPECIFIED ORGANISM SNOMED Code(s): 51408458 (3) Hydroureteronephrosis Narrative/Plan: Ct revealed L renal calculus. Pt was evaluated by Urology, and not felt to have significant obstruction needing intervention Current Visit: No Status: Acute Code(s): N13.30 - UNSPECIFIED HYDRONEPHROSIS SNOMED Code(s): 89974578 (4) Bicytopenia Narrative/Plan: Chemo induced. WBC improved with GCSF. Hgb is adequate. Continue to monitor and transfuse if needed Current Visit: Yes Status: Acute Code(s): D75.89 - OTHER SPECIFIED DISEASES OF BLOOD AND BLOOD-FORMING ORGANS SNOMED Code(s): 456029322 (5) Non Hodgkin's lymphoma Narrative/Plan: The pt is s/p 1 cycle of chemo. She has multiple chemo related side effects, that are a major component of her presentation. She will have dose reduction and upfront GCSF with her next cycle Current Visit: No Status: Acute Code(s): C85.90 - NON-HODGKIN LYMPHOMA, UNSPECIFIED, UNSPECIFIED SITE SNOMED Code(s): 153499407
[2017-12-01 21:17] LABS: Glucose,Whole Blood 148 mg/dL (75-99)
[2017-12-01 22:06] LABS: Glucose,Whole Blood 151 mg/dL (75-99)
[2017-12-01 23:09] LABS: Glucose,Whole Blood 148 mg/dL (75-99)
[2017-12-02 00:01] LABS: Glucose,Whole Blood 149 mg/dL (75-99)
[2017-12-02] MEDS: CEFEPIME 2 GM in SODIUM CHLORIDE 0.9% 50 ML IVPB SCH ×2 (00:01→14:26)
[2017-12-02 01:04] LABS: Glucose,Whole Blood 149 mg/dL (75-99)
[2017-12-02 02:09] LABS: Glucose,Whole Blood 148 mg/dL (75-99)
[2017-12-02 03:11] LABS: Glucose,Whole Blood 144 mg/dL (75-99)
[2017-12-02 03:57] LABS: Glucose,Whole Blood 145 mg/dL (75-99)
[2017-12-02] MEDS: VANCOMYCIN 1,250 MG in SODIUM CHLORIDE 0.9% 250 ML IVPB SCH ×2 (05:20→17:42)
[2017-12-02 05:21] LABS: Glucose,Whole Blood 159 mg/dL (75-99)
[2017-12-02] MEDS: SODIUM CHLORIDE 0.9% 1,000 ML IV SCH ×2 (05:21→19:21)
[2017-12-02 06:12] LABS: Glucose,Whole Blood 144 mg/dL (75-99)
[2017-12-02 06:19] LABS: Anisocytosis Slight; Basophils % (A) 0 %; Eosinophils % (A) 0 %; HGB 7.6 gm/dL (11.4-16.0); Hypochromasia Marked; Lymphocytes # (A) 0.3 k/uL (1.0-4.8); Lymphocytes % (A) 3 %; MCH 23.8 pg (25.0-35.0); MCHC 30.2 g/dL (31.0-37.0); MCV 78.7 fL (80.0-100.0); Mean Platelet Volume 7.8; Microcytosis Slight; Monocytes # (A) 0.5 k/uL (0-1.0); Monocytes % (A) 5 %; Neutrophils # (A) 8.7 k/uL (1.3-7.7); Neutrophils % (A) 88 %; Platelet Count 221 k/uL (150-450); RBC 3.18 m/uL (3.80-5.40); RDW 17.3 % (11.5-15.5); WBC 9.8 k/uL (3.8-10.6)
[2017-12-02 06:46] LABS: Calcium 6.8 mg/dL (8.4-10.2); Magnesium 2.1 mg/dL (1.6-2.3); Phosphorus 1.3 mg/dL (2.5-4.5); Potassium 3.2 mmol/L (3.5-5.1)
[2017-12-02 06:55] LABS: Glucose,Whole Blood 148 mg/dL (75-99)
[2017-12-02] MEDS ORDERED: Phosphorus Replacement Protoco 1 EACH MISC MISCELLANE PRN (07:07)
[2017-12-02] MEDS ORDERED: SODIUM PHOSPHATE 10 MMOL in SODIUM CHLORIDE 0.9% 250 ML IVPB SCH (08:00)
[2017-12-02 08:27] LABS: Glucose,Whole Blood 164 mg/dL (75-99)
[2017-12-02] MEDS: HYDROCORTISONE SUCCINATE 100 MG/2 ML VIAL IV SCH ×2 (08:45→16:20)
[2017-12-02] MEDS: metroNIDAZOLE-NS PMX 500 MG in SALINE 1 100ML.BAG IVPB SCH ×2 (08:46→16:23)
[2017-12-02] MEDS: POTASSIUM CHLORIDE ER 10 MEQ TAB.ER.PRT PO SCH (08:47)
[2017-12-02] MEDS: CITALOPRAM HYDROBROMIDE 20 MG TAB PO SCH (08:47)
[2017-12-02] MEDS: GABAPENTIN 100 MG CAP PO SCH ×2 (08:47→21:43)
[2017-12-02] MEDS ORDERED: SUPER B COMPLEX PO SCH (09:00)
[2017-12-02 09:16] LABS: Glucose,Whole Blood 158 mg/dL (75-99)
[2017-12-02] MEDS: HYDROcodone/APAP 7.5-325MG 1 EACH TAB PO PRN (09:31)
[2017-12-02 10:10] LABS: Glucose,Whole Blood 144 mg/dL (75-99)
[2017-12-02] MEDS: POTASSIUM PHOSPHATE 10 MMOL in SODIUM CHLORIDE 0.9% 250 ML IV SCH ×3 (10:43→15:00)
[2017-12-02 11:06] LABS: Glucose,Whole Blood 144 mg/dL (75-99)
--- NOTE | 2017-12-02 11:16 | P.PN ---
Subjective Progress Note Date: 12/02/17 Principal diagnosis: Non-Hodgkin's lymphoma with involvement of the liver and the lung. 67-year-old female patient with known history of non-Hodgkin's lymphoma with involvement of the liver on the lung who was transferred to the emergency department from her oncologist office because of hypotension and tachycardia. The patient presented to the ED having extreme fatigue and some degree of abdominal discomfort more so in the upper abdomen compared to the lower. She denied having any recent fever. The daughter however told me that the patient was having a low-grade fever of 100.4. She did admit to have some loose liquidy bowel movements 2 bouts yesterday and one bout this morning. No recent antibiotic use. The patient has a Mediport over the right chest area the site of which is clean and that is no erythema and the port is functioning well. She denied having any cough or sputum production. No reported nausea or vomiting or emesis. No chest pain. No angina. Her blood work showed that the patient was neutropenic with a white cell count of 1.6. She had a hemoglobin of 9.3 with a platelet count of 167. Her BUN was 24 with a creatinine of 1.1. She had no significant metabolic acidosis. The patient lactic acid level was at 1.7 at a time of initial evaluation. Liver function tests are also within normal limits. She was unable to give a UA and she refused and declined a Sinclair catheter insertion. The patient was started already on a combination of cefepime and vancomycin. She was found to be hypotensive and she received 2 L of IV fluid without much response and her blood pressure in general. Note that her systolic blood pressure was 74 with a diastolic of 44. At one point, her blood pressure was as low as 69/38. Her heart rate was around 109 and with fluid resuscitation dropped down to 83. She was also started on pressors after 2-1/2 L of IV fluid and pulmonary critical care consultation was requested. CAT scan of the abdomen was done and showed a 3 mm left proximal ureteral stone with obstruction and mild left hydronephrosis. The patient has fluid-filled loops of small bowel with wall thickening and extensive diverticular changes within the colon. Retroperitoneal adenopathy was again described by the CAT scan. There was normal aorta, normal pancreas and spleen, multiple hypodense lesions within the liver noted suggestive of metastatic foci and the patient is postcholecystectomy. Note that this patient lymphoma was a recent diagnosis. She was initially seen in 05/14. The patient had presented with some chest pain. She had a computed tomography scan done to assess for aortic aneurysm, which incidentally revealed upper retroperitoneal lymph nodes. The patient subsequently had a lymph node biopsy which was positive for low-grade non-Hodgkin's lymphoma, with marginal zone lymphoma favored. The patient then had a PET scan done, which showed uptake limited to upper left retroperitoneal area, as well as uptake in the liver. The patient had an MRI of the liver which was not conclusive in terms of ruling in or ruling out liver involvement. She therefore underwent liver biopsy in 07/14 which showed no evidence of lymphoma involvement. It did show evidence of inflammation and steatosis. 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 As the patient was asymptomatic, she was placed on observation which is the standard of care for stage IV low-grade non-Hodgkin lymphoma. Patient was recently started on systemic chemotherapy knowing that the bone marrow biopsy also showed conversion to a high-grade lymphoma and the patient was given a first cycle of systemic chemotherapy that included Cytoxan, Rituxan and high-dose prednisone. The patient was also given Neulasta for neutropenia post chemotherapy. On 12/01/2017, I'm seeing this patient for a follow-up. She is awake and alert and communicating and there is no altered mentation. She is on pressors and she is currently on 2 mics of norepinephrine infusion for blood pressure control. She is producing adequate amount of urine output. Sinclair catheter was inserted. No indication of an underlying UTI based on the UA. The patient was seen by urology regarding the left ureteral calculus and left hydronephrosis. No suggestions for any immediate interventions regarding this issue. The patient is afebrile. The patient has been resuscitated aggressively with IV fluids and her urine output is also improved. On today's blood work, the white cell count is up to 5.2. Her renal function is stable with a creatinine of 1.1. Serum bicarb is down to 16. This is a non-anion gap metabolic acidosis a a anion gap of 13. The patient is receiving stress dose hydrocortisone. The blood sugar is elevated above 300. The patient was started on insulin drip. White cell count is up to 5.2. She still has some vague abdominal discomfort without any active diarrhea. No dysuria fixed urgency. Sinclair catheter is in place. The patient is seen again today 12/02/2017 in follow-up in the intensive care unit. She is currently awake and alert oriented 3. She is still somewhat weak and fatigued. No pulmonary complaints. Maintaining good O2 saturations in the 90s on room air. She had been off norepinephrine through most of the evening but it was started early this morning approximate 7:[address] per minute currently down to 0.5. She is on Solu-Cortef 50 mg IV every 8 hours. Mean arterial pressure standing greater than 60. She's afebrile. Blood and urine cultures reveal no growth. White count 9.8. Hemoglobin 7.6. Bicarb 17. Creatinine 0.85. She is currently on cefepime, Flagyl and vancomycin. She is somewhat depressed this morning. Verbalizing her desire to be a DO NOT RESUSCITATE. We encouraged her to wait until her family arrives to have further discussion. Objective - Vital Signs Vital signs: Vital Signs Temp 98.3 F 12/02/17 08:00 Pulse 52 L 12/02/17 09:30 Resp 15 12/02/17 09:30 BP 95/54 12/02/17 09:30 Pulse Ox 95 12/02/17 09:30 Intake & Output 12/01/17 12/02/17 12/02/17 18:59 06:59 18:59 Intake Total 2427.522 897.119 263.559 Output Total 605 610 180 Balance 1822.522 287.119 83.559 Weight 74.7 kg Intake: IV 1530 225 250 0.9 1080 125 250 Cefepime 2 gm In Sodium 50 Chloride 0.9% 50 ml @ 100 mls/hr IVPB ONCE STA Rx# :[id number] Magnesium Sulfate-D5w Pmx 200 1 gm In Dextrose/Water 1 100ml.bag @ 100 mls/hr IVPB Q1H [facility] Rx#: [id number] metroNIDAZOLE-NS PMX 500 200 100 mg In Saline 1 100ml.bag @ 100 mls/hr IVPB Q8HR [facility]TE Rx#:[id number] Intake, IV Titration 407.522 22.119 13.559 Amount Insulin Regular 100 unit 72.772 22.119 8.434 In Sodium Chloride 0.9% 100 ml @ Per Protocol IV .Q0M [facility] Rx#:[id number] Norepinephrine 4 mg In 84.750 5.125 Sodium Chloride 0.9% 250 ml @ Titrate IV .Q0M [facility] Rx#:[id number] Vancomycin 1,250 mg In 250 Sodium Chloride 0.9% 250 ml @ 125 mls/hr IVPB Q24H [facility]TE Rx#:[id number] Oral 490 650 Output: Urine 605 610 180 Uretheral (Sinclair) 110 Other: Voiding Method Indwelling Catheter Indwelling Catheter - Exam - Constitutional General appearance: no acute distress - EENT Eyes: EOMI, PERRLA ENT: hearing grossly normal, normal oropharynx - Neck Neck: no lymphadenopathy - Respiratory Respiratory: bilateral: CTA - Cardiovascular Rhythm: regular Heart sounds: normal: S1, S2 - Gastrointestinal General gastrointestinal: normal bowel sounds, soft - Integumentary Integumentary: normal - Neurologic Neurologic: CNII-XII intact - Musculoskeletal Musculoskeletal: strength equal bilaterally - Psychiatric Psychiatric: A&O x's 3, appropriate affect - Labs CBC & Chem 7: 12/02/17 05:29 12/02/17 05:29 Labs: Abnormal Lab Results - Last 24 Hours (Table) 12/01/17 12/01/17 12/01/17 Range/Units 05:04 10:39 11:01 RBC (3.80-5.40) m/uL Hgb (11.4-16.0) gm/dL Hct (34.0-46.0) % MCV (80.0-100.0) fL MCH (25.0-35.0) pg MCHC (31.0-37.0) g/dL RDW (11.5-15.5) % Neutrophils # (1.3-7.7) k/uL Lymphocytes # (1.0-4.8) k/uL Potassium (3.5-5.1) mmol/L Chloride (98-107) mmol/L Carbon Dioxide (22-30) mmol/L BUN (7-17) mg/dL Glucose (74-99) mg/dL POC Glucose (mg/dL) 310 H 293 H (75-99) mg/dL Hemoglobin A1c 7.5 H (4.0-6.0) % Calcium (8.4-10.2) mg/dL Phosphorus (2.5-4.5) mg/dL 12/01/17 12/01/17 12/01/17 Range/Units 11:53 13:06 14:05 RBC (3.80-5.40) m/uL Hgb (11.4-16.0) gm/dL Hct (34.0-46.0) % MCV (80.0-100.0) fL MCH (25.0-35.0) pg MCHC (31.0-37.0) g/dL RDW (11.5-15.5) % Neutrophils # (1.3-7.7) k/uL Lymphocytes # (1.0-4.8) k/uL Potassium (3.5-5.1) mmol/L Chloride (98-107) mmol/L Carbon Dioxide (22-30) mmol/L BUN (7-17) mg/dL Glucose (74-99) mg/dL POC Glucose (mg/dL) 248 H 179 H 176 H (75-99) mg/dL Hemoglobin A1c (4.0-6.0) % Calcium (8.4-10.2) mg/dL Phosphorus (2.5-4.5) mg/dL 12/01/17 12/01/17 12/01/17 Range/Units 14:54 16:30 17:10 RBC (3.80-5.40) m/uL Hgb (11.4-16.0) gm/dL Hct (34.0-46.0) % MCV (80.0-100.0) fL MCH (25.0-35.0) pg MCHC (31.0-37.0) g/dL RDW (11.5-15.5) % Neutrophils # (1.3-7.7) k/uL Lymphocytes # (1.0-4.8) k/uL Potassium (3.5-5.1) mmol/L Chloride (98-107) mmol/L Carbon Dioxide (22-30) mmol/L BUN (7-17) mg/dL Glucose (74-99) mg/dL POC Glucose (mg/dL) 174 H 165 H 187 H (75-99) mg/dL Hemoglobin A1c (4.0-6.0) % Calcium (8.4-10.2) mg/dL Phosphorus (2.5-4.5) mg/dL 12/01/17 12/01/17 12/01/17 Range/Units 18:08 18:57 20:26 RBC (3.80-5.40) m/uL Hgb (11.4-16.0) gm/dL Hct (34.0-46.0) % MCV (80.0-100.0) fL MCH (25.0-35.0) pg MCHC (31.0-37.0) g/dL RDW (11.5-15.5) % Neutrophils # (1.3-7.7) k/uL Lymphocytes # (1.0-4.8) k/uL Potassium (3.5-5.1) mmol/L Chloride (98-107) mmol/L Carbon Dioxide (22-30) mmol/L BUN (7-17) mg/dL Glucose (74-99) mg/dL POC Glucose (mg/dL) 158 H 141 H 155 H (75-99) mg/dL Hemoglobin A1c (4.0-6.0) % Calcium (8.4-10.2) mg/dL Phosphorus (2.5-4.5) mg/dL 12/01/17 12/01/17 12/01/17 Range/Units 21:15 22:04 23:07 RBC (3.80-5.40) m/uL Hgb (11.4-16.0) gm/dL Hct (34.0-46.0) % MCV (80.0-100.0) fL MCH (25.0-35.0) pg MCHC (31.0-37.0) g/dL RDW (11.5-15.5) % Neutrophils # (1.3-7.7) k/uL Lymphocytes # (1.0-4.8) k/uL Potassium (3.5-5.1) mmol/L Chloride (98-107) mmol/L Carbon Dioxide (22-30) mmol/L BUN (7-17) mg/dL Glucose (74-99) mg/dL POC Glucose (mg/dL) 148 H 151 H 148 H (75-99) mg/dL Hemoglobin A1c (4.0-6.0) % Calcium (8.4-10.2) mg/dL Phosphorus (2.5-4.5) mg/dL 12/01/17 12/02/17 12/02/17 Range/Units 23:59 01:01 02:06 RBC (3.80-5.40) m/uL Hgb (11.4-16.0) gm/dL Hct (34.0-46.0) % MCV (80.0-100.0) fL MCH (25.0-35.0) pg MCHC (31.0-37.0) g/dL RDW (11.5-15.5) % Neutrophils # (1.3-7.7) k/uL Lymphocytes # (1.0-4.8) k/uL Potassium (3.5-5.1) mmol/L Chloride (98-107) mmol/L Carbon Dioxide (22-30) mmol/L BUN (7-17) mg/dL Glucose (74-99) mg/dL POC Glucose (mg/dL) 149 H 149 H 148 H (75-99) mg/dL Hemoglobin A1c (4.0-6.0) % Calcium (8.4-10.2) mg/dL Phosphorus (2.5-4.5) mg/dL 12/02/17 12/02/17 12/02/17 Range/Units 02:57 03:55 05:19 RBC (3.80-5.40) m/uL Hgb (11.4-16.0) gm/dL Hct (34.0-46.0) % MCV (80.0-100.0) fL MCH (25.0-35.0) pg MCHC (31.0-37.0) g/dL RDW (11.5-15.5) % Neutrophils # (1.3-7.7) k/uL Lymphocytes # (1.0-4.8) k/uL Potassium (3.5-5.1) mmol/L Chloride (98-107) mmol/L Carbon Dioxide (22-30) mmol/L BUN (7-17) mg/dL Glucose (74-99) mg/dL POC Glucose (mg/dL) 144 H 145 H 159 H (75-99) mg/dL Hemoglobin A1c (4.0-6.0) % Calcium (8.4-10.2) mg/dL Phosphorus (2.5-4.5) mg/dL 12/02/17 12/02/17 12/02/17 Range/Units 05:29 05:29 06:10 RBC 3.18 L (3.80-5.40) m/uL Hgb 7.6 L (11.4-16.0) gm/dL Hct 25.0 L (34.0-46.0) % MCV 78.7 L (80.0-100.0) fL MCH 23.8 L (25.0-35.0) pg MCHC 30.2 L (31.0-37.0) g/dL RDW 17.3 H (11.5-15.5) % Neutrophils # 8.7 H (1.3-7.7) k/uL Lymphocytes # 0.3 L (1.0-4.8) k/uL Potassium 3.2 L (3.5-5.1) mmol/L Chloride 116 H (98-107) mmol/L Carbon Dioxide 17 L (22-30) mmol/L BUN 20 H (7-17) mg/dL Glucose 135 H (74-99) mg/dL POC Glucose (mg/dL) 144 H (75-99) mg/dL Hemoglobin A1c (4.0-6.0) % Calcium 6.8 L (8.4-10.2) mg/dL Phosphorus 1.3 L (2.5-4.5) mg/dL 12/02/17 12/02/17 12/02/17 Range/Units 06:53 08:26 09:11 RBC (3.80-5.40) m/uL Hgb (11.4-16.0) gm/dL Hct (34.0-46.0) % MCV (80.0-100.0) fL MCH (25.0-35.0) pg MCHC (31.0-37.0) g/dL RDW (11.5-15.5) % Neutrophils # (1.3-7.7) k/uL Lymphocytes # (1.0-4.8) k/uL Potassium (3.5-5.1) mmol/L Chloride (98-107) mmol/L Carbon Dioxide (22-30) mmol/L BUN (7-17) mg/dL Glucose (74-99) mg/dL POC Glucose (mg/dL) 148 H 164 H 158 H (75-99) mg/dL Hemoglobin A1c (4.0-6.0) % Calcium (8.4-10.2) mg/dL Phosphorus (2.5-4.5) mg/dL 12/02/17 Range/Units 10:08 RBC (3.80-5.40) m/uL Hgb (11.4-16.0) gm/dL Hct (34.0-46.0) % MCV (80.0-100.0) fL MCH (25.0-35.0) pg MCHC (31.0-37.0) g/dL RDW (11.5-15.5) % Neutrophils # (1.3-7.7) k/uL Lymphocytes # (1.0-4.8) k/uL Potassium (3.5-5.1) mmol/L Chloride (98-107) mmol/L Carbon Dioxide (22-30) mmol/L BUN (7-17) mg/dL Glucose (74-99) mg/dL POC Glucose (mg/dL) 144 H (75-99) mg/dL Hemoglobin A1c (4.0-6.0) % Calcium (8.4-10.2) mg/dL Phosphorus (2.5-4.5) mg/dL Microbiology - Last 24 Hours (Table) 11/30/17 18:50 Urine Culture - Final Urine,Catheterized 11/30/17 12:56 Blood Culture - Preliminary Blood No Growth after 24 hours Assessment and Plan Assessment: Assessment 1 acute hypotension, likely of a septic in nature. Recovered, currently off pressors. 2 stage IV non-Hodgkin's lymphoma low-grade 3 obstructive uropathy with left ureteral stone and hydronephrosis, see urology' s evaluation 4 anemia, normocytic likely chronic 5 obstructive sleep apnea 6 hypothyroidism 7 hyperlipidemia 8 diabetes mellitus 9 history of closed head injury 10 non-anion gap metabolic acidosis, probably related to diarrhea. Plan: The patient was seen and evaluated by Dr. Rayo. Labs were reviewed. No growth in cultures thus far. We'll discontinue the vancomycin. We'll add bicarb. We'll discontinue her Sinclair. We'll transfer out of the intensive care unit today. She has expressed an interest in being a DO NOT RESUSCITATE/DO NOT INTUBATE CODE STATUS however we recommended she wait and speak with her family who are planning to be here today. We will continue to follow make further recommendations based on her clinical status. I, the cosigning physician, performed a history & physical examination of the patient. Lungs sounds are clear. Maintaining good O2 saturations in the 90s on room air. I discussed the assessment and plan of care with my nurse practitioner, Yumiko Richards. I attest to the above note as dictated by her.
[2017-12-02 12:27] LABS: Glucose,Whole Blood 112 mg/dL (75-99)
[2017-12-02 13:15] LABS: Glucose,Whole Blood 137 mg/dL (75-99)
[2017-12-02] MEDS: MULTIVITAMINS, THERA 1 EACH TAB PO SCH (13:26)
[2017-12-02 14:23] LABS: Glucose,Whole Blood 196 mg/dL (75-99)
[2017-12-02] MEDS: DEXTROSE 5% IN WATER 1,000 ML with SODIUM BICARB (1 MEQ/ML) 150 ML IV SCH (14:38)
[2017-12-02 15:12] LABS: Glucose,Whole Blood 198 mg/dL (75-99)
[2017-12-02 15:59] LABS: Glucose,Whole Blood 195 mg/dL (75-99)
[2017-12-02 17:30] LABS: Glucose,Whole Blood 141 mg/dL (75-99)
[2017-12-02] MEDS: INSULIN ASPART 100 UNIT/ML 1 ML 10 ML VIAL SQ SCH ×2 (17:42→21:44)
--- NOTE | 2017-12-02 20:44 | PN ---
PROGRESS NOTE DATE OF SERVICE: December 02, 2017. CHIEF COMPLAINT: Tired. Maricruz is seen today as a followup. She feels a little tired but overall better. No fever or chills. No nausea or vomiting. No diarrhea. No melena, hematochezia, hematuria hemoptysis or hematemesis. MEDICATIONS: Her medications reviewed in her electronic medical record. PHYSICAL EXAMINATION: On physical examination, she is alert, oriented x3. She does not appear to be in distress at this time. Her vital signs are pulse 56, respiration 16, blood pressure 100/64, pulse ox 98 percent on room air. HEENT: Normocephalic, atraumatic. Neck is supple. CHEST: Equal expansion bilaterally. Lungs are clear to auscultation. Heart is regular rate and rhythm. Abdomen is soft. No tenderness. Extremities reveal trace edema. SKIN: Few bruises. No ecchymosis or petechiae. LABORATORY DATA: WBC are 9.8, hemoglobin 7.6, hematocrit 25.0. MCV 78.2, platelet 221, absolute neutrophil count 8.7. IMPRESSION: 1. Sepsis in this neutropenic patient. The patient has improved now. She is currently off pressor, maintaining a reasonable blood pressure and her neutrophils have recovered. Blood culture at 48 hours has been negative and the urine culture has been negative as well. She is currently on cefepime 2 g IV piggyback every 12 hours and she is also on IV vancomycin. Clinically she is doing better. Her neutrophils are up and she is afebrile. 2. Non Hodgkin lymphoma. The patient underwent treatment with R-CEOP regimen. She had the 1st cycle on 11/20/2017. RECOMMENDATION: 1. Monitor CBC. No need for blood transfusion today. 2. Continue broad-spectrum antibiotics per Infectious Disease recommendations. 3. Continue current supportive care. 4. Hopefully, the patient continued to remain off pressor and continued to improve. She could be transferred out of the intensive care unit. In regard to further systemic treatment, decision will be made once the patient fully recovers from her current of her current condition. The above was discussed in detail with the patient at bedside and I answered all questions. MMODL / IJN: [id number] /
[2017-12-02 20:45] LABS: Glucose,Whole Blood 255 mg/dL (75-99)
[2017-12-02] MEDS: FUROSEMIDE 20 MG TAB PO SCH (21:43)
[2017-12-02] MEDS: LORATADINE 10 MG TAB PO SCH (21:43)
--- NOTE | 2017-12-02 22:41 | PN ---
PROGRESS NOTE DATE OF SERVICE: 12/02/2017 I am covering for Dr. Leonard Solano. This 67-year-old woman with a past medical history of multiple medical problems include recent chemotherapy and Non-Hodgkin's lymphoma was admitted with neutropenia, neutropenic sepsis, also. The patient is hypotensive. Patient is on Levophed. Currently patient being closely monitored. Patient on broad spectrum IV antibiotics. A 2D echo showed ejection fraction around 55-60 percent. Cultures are negative so far. PAST MEDICAL HISTORY: Reviewed. REVIEW OF SYSTEMS: CARDIOVASCULAR: No angina. No palpitations. Respiration as mentioned earlier. GI: As mentioned earlier. : No dysuria. Central nervous system: No numbness or weakness. MEDICATIONS ARE: Reviewed and include 1. Tylenol 650 q4. 2. P[place]co 7.5 p.r.n. 3.2 g IV b.i.d. 4. Celexa. 5. Neurontin 200 mg b.i.d. 6. Solu-Cortef 50 mg IV q.8h. 7. Claritin. 8. Flagyl 500 mg IV q.8h. 9. Replacement protocol. 10.Zofran. 11.Vancomycin IV. PHYSICAL EXAM: Patient is alert, oriented x3, pulse 55, blood pressure 98/51, respiration 16, temperature normal, pulse ox 94% on room air. HEENT is conjunctivae normal. Oral mucosa moist. Neck is no jugular venous distention. No carotid bruit. No lymph node enlargement. Cardiovascular System: S1, S2 muffled. Respiration: Breath sounds diminished in the bases. A few rhonchi. No crackles. ABDOMEN: Soft, nontender. No mass palpable. Legs: No edema and no swelling. NERVOUS SYSTEM: Higher functions as mentioned earlier. Moves all 4 limbs. No focal motor or sensory deficits. Lymphatics: No lymph nodes palpable in the neck, axillae or groin. Skin: No ulcer, rash or bleeding. LABS: At this time glucose 198, WBC 9.8, hemoglobin 7.6, sodium 142, potassium 3.2. ASSESSMENT: 1. Acute neutropenic sepsis with severe septic shock and hypotension, present on admission. 2. Stage IV non-Hodgkin lymphoma, low-grade, on chemotherapy. 3. Obstructive uropathy, left ureter stone and hydronephrosis history. 4. Anemia, leukopenia. 5. Hypokalemia. 6. Hyponatremia. 7. Increased creatinine with chronic kidney disease stage III. 8. Diabetes mellitus type 2. 9. Hypocalcemia. 10.Hypomagnesemia. 11.History of congestive heart failure. 12.Diabetes mellitus type 2. 13.Hypertension. 14.Hyperlipidemia. 15.Obstructive sleep apnea. 16.History of cholecystitis. 17.History of anxiety. 18.Traumatic brain injury history. 19.FULL CODE. RECOMMENDATIONS AND DISCUSSION: Recommend to continue current medications, symptomatic treatment, management and continue with broad-spectrum IV antibiotics. Continue with IV fluids. Repeat labs have been ordered. Replacement protocols as mentioned earlier. Potassium has been supplemented. Prognosis guarded because of multiple complex medical issues. We will follow the patient closely along with Pulmonary Critical Care as well as Infectious Disease. Prognosis guarded. Further recommendations to follow. MMPAULINAL / IJN: [id number] / MTDD
--- NOTE | 2017-12-02 23:24 | P.CONS ---
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 At the time of her admission she had evidence of neutropenia and fever and constantly was admitted for sepsis. She required fluid resuscitation as well as his pressor support originally. She is not having significant improvement in is feeling better. She is very pertinent recent history in that she was having some abdominal pain and underwent imaging studies that reveal evidence of extensive intra-abdominal lymphadenopathy. Workup eventually was performed revealing the evidence of B cell non-Hodgkin's lymphoma stage IV is noted by the bone marrow involvement. Due to her age and renal dysfunction she was treated with R-CEOP. She is now presenting with evidence of febrile neutropenia generalized malaise and feeling quite poorly overall. She does have some chronic cognitive delays. Also worsened when she was quite ill which are now improving as noted by her sister who is present. The patient at this time is feeling better. She has received growth factor support her white blood cell count is improved. Her fevers have improved. She is having no chills or rigors. She had having much discomfort at this time. No evidence of any bleeding is occurring. Review of Systems Fever and chills have improved HEENT:Denies headache or acute visual change. Denies sinus or mouth discomforts. Denies neck stiffness or pain. Denies significant oral cavity pain. Denies difficulty on swallowing. Lungs: Denies significant shortness of breath, cough, sputum production, or hemoptysis. Cardiovascular: Denies significant shortness of breath, chest pain, chest wall pain, orthopnea, dyspnea on exertion, syncope Gastrointestinal:Denies nausea, vomiting, diarrhea, constipation, hematemesis, melena, hematochezia. No no significant change of bowel habit noticed. Musculoskeletal: denies significant myalgias or arthralgias. No new joint swelling. Denies new back pain. Skin: Denies new rash or lesions. No new ulcers or wounds are related.. Neuro: Denies headache or visual change. Denies any new onset weakness or difficulty with ambulation. Denies falls or seizures. Psychiatric:Denies anxiety or depression. Endocrine: Complains of fatigue and some weight loss Past Medical History Past Medical History: Cancer, Heart Failure, Diabetes Mellitus, Hyperlipidemia, Hypertension, Sleep Apnea/CPAP/BIPAP, Thyroid Disorder Additional Past Medical History / Comment(s): B-cell non-Hodgkin's lymphoma stage IV, diabetes mellitus,daughter stated pt had first chemo mon 11-20-17 hypertension, hyperlipidemia, obstructive sleep apnea, hypothyroidism post thyroidectomy, closed head injury in 1988, difficulty with mobility and ambulation the patient has been using a walker. has a history of kidney stones Last Myocardial Infarction Date:: 1988 History of Any Multi-Drug Resistant Organisms: None Reported Past Surgical History: Cholecystectomy, Hysterectomy, Tonsillectomy Additional Past Surgical History / Comment(s): Thyroidectomy, lymph node and liver biopsies. port a cath 11-06-17, right ureteroscopy with lithotripsy 12/2014 Past Anesthesia/Blood Transfusion Reactions: Postoperative Nausea & Vomiting ( PONV) Additional Psychological History / Comment(s): The single. 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 No international travel. No experience. No animal exposures Smoking Status: Never smoker - Past Family History Mother Family Medical History: Cancer Additional Family Medical History / Comment(s): breast CA Father Family Medical History: Cancer Additional Family Medical History / Comment(s): colon CA Sister(s) Family Medical History: Cancer Additional Family Medical History / Comment(s): Skin cancer Medications and Allergies Home Medications and Allergies Comment(s): Current Medications Acetaminophen (Tylenol Tab) 650 mg PO Q4HR PRN PRN Reason: Fever and/or Mild Pain Last Admin: 12/01/17 16:53 Dose: 650 mg Hydrocodone Bitart/Acetaminophen ([place] 7.5-325) 1 each PO Q6H PRN PRN Reason: Pain Last Admin: 12/02/17 09:31 Dose: 1 each Alprazolam (Xanax) 0.5 mg PO DAILY PRN PRN Reason: Anxiety Citalopram Hydrobromide (Celexa) 20 mg PO DAILY [facility] Last Admin: 12/02/17 08:47 Dose: 20 mg Furosemide (Lasix) 20 mg PO BID@0900,2100 [facility] Last Admin: 12/02/17 21:43 Dose: 20 mg Gabapentin (Neurontin) 100 mg PO QAM [facility] Last Admin: 12/02/17 08:47 Dose: 100 mg Gabapentin (Neurontin) 200 mg PO HS [facility] Last Admin: 12/02/17 21:43 Dose: 200 mg Hydrocortisone Sodium Succinate (Solu-Cortef) 50 mg IV Q8HR [facility] Last Admin: 12/02/17 16:20 Dose: 50 mg Metronidazole 500 mg/ IV (Solution) 100 mls @ 100 mls/hr IVPB Q8HR [facility] Last Admin: 12/02/17 16:23 Dose: 100 mls/hr Cefepime HCl 2 gm/ Sodium (Chloride) 50 mls @ 100 mls/hr IVPB Q12H [facility] Last Admin: 12/02/17 14:26 Dose: 100 mls/hr Sodium Bicarbonate 150 ml/ (Dextrose/Water) 1,150 mls @ 75 mls/hr IV .[id number] [facility] Last Admin: 12/02/17 14:38 Dose: 75 mls/hr Vancomycin HCl 1,250 mg/ (Sodium Chloride) 250 mls @ 125 mls/hr IVPB Q12H [facility] Last Admin: 12/02/17 17:42 Dose: 125 mls/hr Insulin Aspart (Novolog) 0 unit SQ [facility]; Protocol Last Admin: 12/02/17 21:44 Dose: 4 unit Loratadine (Claritin) 10 mg PO [facility] Last Admin: 12/02/17 21:43 Dose: 10 mg Miscellaneous Information (Magnesium Per Protocol) 1 each MISCELLANE DAILY PRN ; Protocol PRN Reason: Per Protocol Miscellaneous Information (Potassium Per Protocol) 1 each MISCELLANE DAILY PRN ; Protocol PRN Reason: Per Protocol Miscellaneous Information (Phosphorus Per Protocol) 1 each MISCELLANE DAILY PRN ; Protocol PRN Reason: Per Protocol Multivitamins (Theragran) 1 each PO DAILY@1200 [facility] Last Admin: 12/02/17 13:26 Dose: 1 each Naloxone HCl (Narcan) 0.2 mg IV Q2M PRN PRN Reason: Opioid Reversal Naloxone HCl (Narcan) 0.2 mg IV Q2M PRN PRN Reason: Opioid Reversal Ondansetron HCl (Zofran) 8 mg PO Q6H PRN PRN Reason: Nausea Potassium Chloride (K-Dur 10) 10 meq PO DAILY [facility] Last Admin: 12/02/17 08:47 Dose: 10 meq Home Medications Medication Instructions Recorded Confirmed Type Furosemide 20 mg PO BID 09/19/13 11/30/17 History Gabapentin 100 mg PO QAM 09/19/13 11/30/17 History Potassium Chloride [Klor-Con 10] 10 meq PO DAILY 09/19/13 11/30/17 History Gabapentin [Neurontin] 200 mg PO HS 12/05/14 11/30/17 History Levothyroxine Sodium [Synthroid] 125 mcg PO MOTUWETHFRSA 12/05/14 11/30/17 History metFORMIN HCL 1,000 mg PO BID PRN 12/05/14 11/30/17 History Cetirizine HCl [Zyrtec] 10 mg PO HS 05/24/17 11/30/17 History Glimepiride [Amaryl] 2 mg PO DAILY PRN 05/24/17 11/30/17 History Multivitamins, Thera [Multivitamin 1 tab PO DAILY 05/24/17 11/30/17 History (formulary)] ALPRAZolam [Xanax] 0.5 - 1 mg PO DAILY PRN 06/12/17 11/30/17 History Atorvastatin Calcium [Lipitor] 40 mg PO HS 06/12/17 11/30/17 History Citalopram Hydrobromide [CeleXA] 20 mg PO DAILY 10/22/17 11/30/17 History Ondansetron HCl [Zofran] 8 mg PO Q6H PRN 11/30/17 11/30/17 History Pantoprazole [Protonix] 40 mg PO DAILY 11/30/17 11/30/17 History Super B Complex 1 tab PO DAILY 11/30/17 11/30/17 History predniSONE 100 mg PO DIRECTED 11/30/17 11/30/17 History Allergies Allergy/AdvReac Type Severity Reaction Status Date / Time haloperidol [From Haldol] Allergy Unknown Verified 11/30/17 13:04 haloperidol lactate Allergy Unknown Verified 11/30/17 13:04 [From Haldol] Iodinated Contrast- Oral and Allergy Rash/Hives Verified 11/30/17 13:04 IV Dye [Iodinated Contrast Media - IV Dye] ciprofloxacin [From Cipro] AdvReac Heartburn Verified 11/30/17 13:04 steri-strips AdvReac Severe sore Uncoded 11/30/17 12:30 Physical Exam Vitals: Vital Signs Temp Pulse Pulse Resp BP BP Pulse Ox 12/02/17 21:49 98.1 F 65 17 106/50 96 12/02/17 16:30 56 L 24 100/64 98 12/02/17 16:00 55 L 17 101/64 95 12/02/17 15:30 55 L 15 96/51 95 12/02/17 15:00 54 L 25 H 82/46 95 12/02/17 14:30 52 L 18 95/54 96 12/02/17 14:00 54 L 18 84/46 95 12/02/17 13:30 54 L 24 86/49 95 12/02/17 13:00 57 L 20 97/55 97 12/02/17 12:30 61 20 104/61 97 12/02/17 12:00 72 24 87/53 96 12/02/17 11:30 46 L 9 L 86/49 94 L 12/02/17 11:00 47 L 12 93/52 93 L 12/02/17 10:30 51 L 15 105/59 95 12/02/17 10:00 49 L 10 L 95/51 97 12/02/17 09:30 52 L 15 95/54 95 12/02/17 09:00 53 L 12 87/49 96 12/02/17 08:30 51 L 15 86/50 94 L 12/02/17 08:00 98.3 F 53 L 24 101/53 94 L 12/02/17 07:30 58 L 20 84/46 93 L 12/02/17 07:00 50 L 11 L 89/51 94 L 12/02/17 06:30 56 L 16 91/52 94 L 12/02/17 06:00 51 L 12 93/51 95 12/02/17 05:30 57 L 19 88/49 95 12/02/17 05:00 52 L 14 87/48 94 L 12/02/17 04:30 52 L 16 90/51 93 L 12/02/17 04:00 97.9 F 55 L 17 93/50 95 12/02/17 03:30 55 L 17 98/58 94 L 12/02/17 03:10 67 22 98/58 96 12/02/17 03:00 58 L 18 99/52 97 12/02/17 02:50 54 L 11 L 81/44 95 12/02/17 02:30 53 L 9 L 85/47 96 12/02/17 02:00 51 L 12 87/49 96 12/02/17 01:30 52 L 12 88/51 95 12/02/17 01:00 51 L 12 87/52 95 12/02/17 00:30 50 L 12 90/50 95 12/02/17 00:00 97.8 F 55 L 18 89/49 95 12/01/17 23:30 51 L 13 97/52 96 Intake and Output 12/02/17 12/02/17 12/03/17 14:59 22:59 06:59 Intake Total 1347.932 837.676 Output Total 330 70 Balance 1017.932 767.676 Intake: IV 975 470 0.9 875 20 Dextrose 5% in Water 1, 0 450 000 ml @ 75 mls/hr IV . [id number] [facility] with Sodium Bicarb (1 Meq/ml) 150 ml Rx#:[id number] metroNIDAZOLE-NS PMX 500 100 mg In Saline 1 100ml.bag @ 100 mls/hr IVPB Q8HR [facility] Rx#:[id number] Intake, IV Titration 22.932 7.676 Amount Insulin Regular 100 unit 15.033 7.676 In Sodium Chloride 0.9% 100 ml @ Per Protocol IV .Q0M [facility] Rx#:[id number] Norepinephrine 4 mg In 7.899 Sodium Chloride 0.9% 250 ml @ Titrate IV .Q0M [facility] Rx#:[id number] Oral 350 360 Output: Urine 330 70 Other: Voiding Method Indwelling Catheter Indwelling Catheter # Voids 1 Pleasant 67-year-old woman who is in no distress, vasopressor therapy has been weaned off HEENT: Anicteric conjunctiva are pink and moist nasal mucosa grossly intact without significant lesions, there is no thrush. Does have pallor. Neck: The neck is supple without significant lymphadenopathy or thyromegaly. Lungs: There are symmetrical air entry without significant crackles or wheezing. No dullness or egophony Heart: Regular rate and rhythm with an audible S1-S2, no S3 no S4. There is no significant murmur click or rub, PMI was nondisplaced. Abdomen: Positive bowel sounds soft and nontender without palpable masses or organomegaly. There was no guarding or rebound. Extremities: The upper extremities have excellent pulses they are symmetric, no significant petechiae or telangiectasia. No splinter hemorrhages were noted. The lower extremities are free from significant edema. The peripheral pulses were 2+ and symmetric. Neuro: Awake alert oriented to person place and time. There are no acute new gross focal sensory motor deficits. Does have a history of head trauma with some memory deficits. Results CBC & Chem 7: 12/02/17 05:29 12/02/17 05:29 Labs: Abnormal Lab Results - Last 24 Hours (Table) 12/01/17 12/02/17 12/02/17 Range/Units 23:59 01:01 02:06 RBC (3.80-5.40) m/uL Hgb (11.4-16.0) gm/dL Hct (34.0-46.0) % MCV (80.0-100.0) fL MCH (25.0-35.0) pg MCHC (31.0-37.0) g/dL RDW (11.5-15.5) % Neutrophils # (1.3-7.7) k/uL Lymphocytes # (1.0-4.8) k/uL Potassium (3.5-5.1) mmol/L Chloride (98-107) mmol/L Carbon Dioxide (22-30) mmol/L BUN (7-17) mg/dL Glucose (74-99) mg/dL POC Glucose (mg/dL) 149 H 149 H 148 H (75-99) mg/dL Calcium (8.4-10.2) mg/dL Phosphorus (2.5-4.5) mg/dL 12/02/17 12/02/17 12/02/17 Range/Units 02:57 03:55 05:19 RBC (3.80-5.40) m/uL Hgb (11.4-16.0) gm/dL Hct (34.0-46.0) % MCV (80.0-100.0) fL MCH (25.0-35.0) pg MCHC (31.0-37.0) g/dL RDW (11.5-15.5) % Neutrophils # (1.3-7.7) k/uL Lymphocytes # (1.0-4.8) k/uL Potassium (3.5-5.1) mmol/L Chloride (98-107) mmol/L Carbon Dioxide (22-30) mmol/L BUN (7-17) mg/dL Glucose (74-99) mg/dL POC Glucose (mg/dL) 144 H 145 H 159 H (75-99) mg/dL Calcium (8.4-10.2) mg/dL Phosphorus (2.5-4.5) mg/dL 12/02/17 12/02/17 12/02/17 Range/Units 05:29 05:29 06:10 RBC 3.18 L (3.80-5.40) m/uL Hgb 7.6 L (11.4-16.0) gm/dL Hct 25.0 L (34.0-46.0) % MCV 78.7 L (80.0-100.0) fL MCH 23.8 L (25.0-35.0) pg MCHC 30.2 L (31.0-37.0) g/dL RDW 17.3 H (11.5-15.5) % Neutrophils # 8.7 H (1.3-7.7) k/uL Lymphocytes # 0.3 L (1.0-4.8) k/uL Potassium 3.2 L (3.5-5.1) mmol/L Chloride 116 H (98-107) mmol/L Carbon Dioxide 17 L (22-30) mmol/L BUN 20 H (7-17) mg/dL Glucose 135 H (74-99) mg/dL POC Glucose (mg/dL) 144 H (75-99) mg/dL Calcium 6.8 L (8.4-10.2) mg/dL Phosphorus 1.3 L (2.5-4.5) mg/dL 12/02/17 12/02/17 12/02/17 Range/Units 06:53 08:26 09:11 RBC (3.80-5.40) m/uL Hgb (11.4-16.0) gm/dL Hct (34.0-46.0) % MCV (80.0-100.0) fL MCH (25.0-35.0) pg MCHC (31.0-37.0) g/dL RDW (11.5-15.5) % Neutrophils # (1.3-7.7) k/uL Lymphocytes # (1.0-4.8) k/uL Potassium (3.5-5.1) mmol/L Chloride (98-107) mmol/L Carbon Dioxide (22-30) mmol/L BUN (7-17) mg/dL Glucose (74-99) mg/dL POC Glucose (mg/dL) 148 H 164 H 158 H (75-99) mg/dL Calcium (8.4-10.2) mg/dL Phosphorus (2.5-4.5) mg/dL 12/02/17 12/02/17 12/02/17 Range/Units 10:08 11:04 12:25 RBC (3.80-5.40) m/uL Hgb (11.4-16.0) gm/dL Hct (34.0-46.0) % MCV (80.0-100.0) fL MCH (25.0-35.0) pg MCHC (31.0-37.0) g/dL RDW (11.5-15.5) % Neutrophils # (1.3-7.7) k/uL Lymphocytes # (1.0-4.8) k/uL Potassium (3.5-5.1) mmol/L Chloride (98-107) mmol/L Carbon Dioxide (22-30) mmol/L BUN (7-17) mg/dL Glucose (74-99) mg/dL POC Glucose (mg/dL) 144 H 144 H 112 H (75-99) mg/dL Calcium (8.4-10.2) mg/dL Phosphorus (2.5-4.5) mg/dL 12/02/17 12/02/17 12/02/17 Range/Units 13:14 14:21 15:10 RBC (3.80-5.40) m/uL Hgb (11.4-16.0) gm/dL Hct (34.0-46.0) % MCV (80.0-100.0) fL MCH (25.0-35.0) pg MCHC (31.0-37.0) g/dL RDW (11.5-15.5) % Neutrophils # (1.3-7.7) k/uL Lymphocytes # (1.0-4.8) k/uL Potassium (3.5-5.1) mmol/L Chloride (98-107) mmol/L Carbon Dioxide (22-30) mmol/L BUN (7-17) mg/dL Glucose (74-99) mg/dL POC Glucose (mg/dL) 137 H 196 H 198 H (75-99) mg/dL Calcium (8.4-10.2) mg/dL Phosphorus (2.5-4.5) mg/dL 12/02/17 12/02/17 12/02/17 Range/Units 15:57 17:29 20:43 RBC (3.80-5.40) m/uL Hgb (11.4-16.0) gm/dL Hct (34.0-46.0) % MCV (80.0-100.0) fL MCH (25.0-35.0) pg MCHC (31.0-37.0) g/dL RDW (11.5-15.5) % Neutrophils # (1.3-7.7) k/uL Lymphocytes # (1.0-4.8) k/uL Potassium (3.5-5.1) mmol/L Chloride (98-107) mmol/L Carbon Dioxide (22-30) mmol/L BUN (7-17) mg/dL Glucose (74-99) mg/dL POC Glucose (mg/dL) 195 H 141 H 255 H (75-99) mg/dL Calcium (8.4-10.2) mg/dL Phosphorus (2.5-4.5) mg/dL Microbiology - Last 24 Hours (Table) 11/30/17 12:56 Blood Culture - Preliminary Blood No Growth after 48 hours 11/30/17 18:50 Urine Culture - Final Urine,Catheterized Laboratory Results WBC 9.8 k/uL (3.8-10.6) 12/02/17 05:29 RBC 3.18 m/uL (3.80-5.40) L 12/02/17 05:29 Hgb 7.6 gm/dL (11.4-16.0) L 12/02/17 05:29 Hct 25.0 % (34.0-46.0) L 12/02/17 05:29 MCV 78.7 fL (80.0-100.0) L 12/02/17 05:29 MCH 23.8 pg (25.0-35.0) L 12/02/17 05:29 MCHC 30.2 g/dL (31.0-37.0) L 12/02/17 05:29 RDW 17.3 % (11.5-15.5) H 12/02/17 05:29 Plt Count 221 k/uL (150-450) 12/02/17 05:29 Neutrophils % 88 % 12/02/17 05:29 Neutrophils % (Manual) 65 % 12/01/17 05:04 Band Neutrophils % 24 % 12/01/17 05:04 Lymphocytes % 3 % 12/02/17 05:29 Lymphocytes % (Manual) 1 % 12/01/17 05:04 Monocytes % 5 % 12/02/17 05:29 Monocytes % (Manual) 10 % 12/01/17 05:04 Eosinophils % 0 % 12/02/17 05:29 Eosinophils % (Manual) 3 % 11/30/17 12:56 Basophils % 0 % 12/02/17 05:29 Metamyelocytes % 2 % 12/01/17 05:04 Myelocytes % 1 % 11/30/17 12:56 Neutrophils # 8.7 k/uL (1.3-7.7) H 12/02/17 05:29 Neutrophils # (Manual) 4.60 k/uL (1.3-7.7) 12/01/17 05:04 Lymphocytes # 0.3 k/uL (1.0-4.8) L 12/02/17 05:29 Lymphocytes # (Manual) 0.05 k/uL (1.0-4.8) L 12/01/17 05:04 Monocytes # 0.5 k/uL (0-1.0) 12/02/17 05:29 Monocytes # (Manual) 0.52 k/uL (0-1.0) 12/01/17 05:04 Eosinophils # 0.0 k/uL (0-0.7) 12/02/17 05:29 Eosinophils # (Manual) 0.05 k/uL (0-0.7) 11/30/17 12:56 Basophils # 0.0 k/uL (0-0.2) 12/02/17 05:29 Metamyelocytes # (Man) 0.10 k/uL (0) H 12/01/17 05:04 Myelocytes # (Manual) 0.02 k/uL (0) H 11/30/17 12:56 Nucleated RBCs 0 /100 WBC (0-0) 12/01/17 05:04 Manual Slide Review Performed 12/01/17 05:04 Toxic Granulation Present 12/01/17 05:04 Dohle Bodies Present 12/01/17 05:04 Polychromasia Present 12/01/17 05:04 Hypochromasia Marked 12/02/17 05:29 Poikilocytosis (manual Present 12/01/17 05:04 Anisocytosis Slight 12/02/17 05:29 Microcytosis Slight 12/02/17 05:29 Crenated Cell Present 12/01/17 05:04 PT 11.3 sec (9.0-12.0) 11/30/17 12:56 INR 1.2 (<1.2) H 11/30/17 12:56 APTT 25.0 sec (22.0-30.0) 11/30/17 12:56 Sodium 142 mmol/L (137-145) 12/02/17 05:29 Potassium 3.2 mmol/L (3.5-5.1) L 12/02/17 05:29 Chloride 116 mmol/L (98-107) H 12/02/17 05:29 Carbon Dioxide 17 mmol/L (22-30) L 12/02/17 05:29 Anion Gap 9 mmol/L 12/02/17 05:29 BUN 20 mg/dL (7-17) H 12/02/17 05:29 Creatinine 0.85 mg/dL (0.52-1.04) 12/02/17 05:29 Est GFR (CKD-EPI)AfAm 84 (>60 ml/min/1.73 sqM) 12/02/17 05:29 Est GFR (CKD-EPI)NonAf 72 (>60 ml/min/1.73 sqM) 12/02/17 05:29 Glucose 135 mg/dL (74-99) H 12/02/17 05:29 POC Glucose (mg/dL) 255 mg/dL (75-99) H 12/02/17 20:43 POC Glu Nipple Threader ID Meggan Dyer 12/02/17 20:[address] Glu mg/dL 169 12/01/17 05:04 Hemoglobin A1c 7.5 % (4.0-6.0) H 12/01/17 05:04 Plasma Lactic Acid Tim 1.7 mmol/L (0.7-2.0) 11/30/17 12:56 Calcium 6.8 mg/dL (8.4-10.2) L 12/02/17 05:29 Phosphorus 1.3 mg/dL (2.5-4.5) L 12/02/17 05:29 Magnesium 2.1 mg/dL (1.6-2.3) 12/02/17 05:29 Total Bilirubin 0.6 mg/dL (0.2-1.3) 11/30/17 12:56 AST 22 U/L (14-36) 11/30/17 12:56 ALT 36 U/L (9-52) 11/30/17 12:56 Alkaline Phosphatase 147 U/L (38-126) H 11/30/17 12:56 Troponin I <0.012 ng/mL (0.000-0.034) 12/01/17 20:00 Total Protein 5.4 g/dL (6.3-8.2) L 11/30/17 12:56 Albumin 2.6 g/dL (3.5-5.0) L 11/30/17 12:56 Cortisol 63 ug/dL 12/02/17 05:29 Urine Color Yellow 11/30/17 18:50 Urine Appearance Cloudy (Clear) H 11/30/17 18:50 Urine pH 5.0 (5.0-8.0) 11/30/17 18:50 Ur Specific [place] 1.025 (1.001-1.035) 11/30/17 18:50 Urine Protein Trace (Negative) H 11/30/17 18:50 Urine Glucose (UA) Negative (Negative) 11/30/17 18:50 Urine Ketones Trace (Negative) H 11/30/17 18:50 Urine Blood Small (Negative) H 11/30/17 18:50 Urine Nitrite Negative (Negative) 11/30/17 18:50 Urine Bilirubin Negative (Negative) 11/30/17 18:50 Urine Urobilinogen <2.0 mg/dL (<2.0) 11/30/17 18:50 Ur Leukocyte Esterase Negative (Negative) 11/30/17 18:50 Urine RBC 11 /hpf (0-5) H 11/30/17 18:50 Urine WBC 4 /hpf (0-5) 11/30/17 18:50 Ur Squamous Epith Cells <1 /hpf (0-4) 11/30/17 18:50 Urine Mucus Rare /hpf (None) H 11/30/17 18:50 Blood Type O Positive 11/30/17 12:56 Blood Type Recheck CABO Indicated 11/30/17 12:56 Antibody Screen NEGATIVE 11/30/17 12:56 Spec Expiration Date 11/30/2017 - 1425 11/30/17 12:56 Microbiology 11/30/17 12:56 Blood Blood Culture - Preliminary No Growth after 48 hours 11/30/17 18:50 Urine,Catheterized Urine Culture - Final Chest x-ray: report reviewed (No evidence of acute infiltration) Assessment and Plan (1) Febrile neutropenia Narrative/Plan: 67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 She has received her first course of chemotherapy and presents with febrile neutropenia. She was also hypotensive requiring fluid resuscitation and vasopressor therapy. She is now considerably improved. She is no longer requiring vasopressor r support and is feeling considerably better. Hematology oncology is following and transfusions as per their protocol. Cultures are in process and is receiving antibiotic therapy with cefepime, metronidazole and vancomycin at this time pending further culture data. The patient's bone marrow recovery and cultures will further direct the course of antibiotic therapy. IgG level can be obtained to further help direct courses of treatment also. Current Visit: Yes Status: Acute Code(s): D70.9 - NEUTROPENIA, UNSPECIFIED; R50.81 - FEVER PRESENTING WITH CONDITIONS CLASSIFIED ELSEWHERE SNOMED Code(s) : 183557339 (2) Bicytopenia Current Visit: Yes Status: Acute Code(s): D75.89 - OTHER SPECIFIED DISEASES OF BLOOD AND BLOOD-FORMING ORGANS SNOMED Code(s): 563297993 (3) Non Hodgkin's lymphoma Current Visit: No Status: Acute Code(s): C85.90 - NON-HODGKIN LYMPHOMA, UNSPECIFIED, UNSPECIFIED SITE SNOMED Code(s): 779650140
[2017-12-03] MEDS: HYDROCORTISONE SUCCINATE 100 MG/2 ML VIAL IV SCH ×3 (00:41→16:45)
[2017-12-03] MEDS: metroNIDAZOLE-NS PMX 500 MG in SALINE 1 100ML.BAG IVPB SCH ×3 (00:42→16:45)
[2017-12-03] MEDS: HYDROcodone/APAP 7.5-325MG 1 EACH TAB PO PRN (00:51)
[2017-12-03 02:14] LABS: Glucose,Whole Blood 296 mg/dL (75-99)
[2017-12-03] MEDS: CEFEPIME 2 GM in SODIUM CHLORIDE 0.9% 50 ML IVPB SCH ×2 (02:47→12:41)
[2017-12-03] MEDS: DEXTROSE 5% IN WATER 1,000 ML with SODIUM BICARB (1 MEQ/ML) 150 ML IV SCH ×2 (05:14→21:03)
[2017-12-03] MEDS: VANCOMYCIN 1,250 MG in SODIUM CHLORIDE 0.9% 250 ML IVPB SCH ×2 (05:24→17:52)
[2017-12-03 07:35] LABS: Glucose,Whole Blood 324 mg/dL (75-99)
[2017-12-03 08:11] LABS: Anion Gap 9 mmol/L; Blood Urea Nitrogen 16 mg/dL (7-17); Calcium 6.8 mg/dL (8.4-10.2); Carbon Dioxide 18 mmol/L (22-30); Chloride 114 mmol/L (98-107); Glucose 274 mg/dL (74-99); Magnesium 1.7 mg/dL (1.6-2.3); Phosphorus 1.9 mg/dL (2.5-4.5); Potassium 3.5 mmol/L (3.5-5.1); Sodium 141 mmol/L (137-145)
[2017-12-03 08:22] LABS: Anisocytosis Slight; Basophils # (A) 0.3 k/uL (0-0.2); Basophils % (A) 1 %; Eosinophils # (A) 0.1 k/uL (0-0.7); Eosinophils % (A) 0 %; HCT 27.4 % (34.0-46.0); HGB 8.7 gm/dL (11.4-16.0); Hypochromasia Marked; Lymphocytes # (A) 0.5 k/uL (1.0-4.8); Lymphocytes % (A) 2 %; MCH 24.8 pg (25.0-35.0); MCHC 31.7 g/dL (31.0-37.0); MCV 78.3 fL (80.0-100.0); Mean Platelet Volume 7.9; Microcytosis Slight; Monocytes # (A) 1.1 k/uL (0-1.0); Monocytes % (A) 4 %; Neutrophils % (A) 91 %; Platelet Count 242 k/uL (150-450); Poikilocytosis Slight; RBC 3.49 m/uL (3.80-5.40); RDW 17.6 % (11.5-15.5); WBC 26.5 k/uL (3.8-10.6)
[2017-12-03] MEDS: INSULIN ASPART 100 UNIT/ML 1 ML 10 ML VIAL SQ SCH ×4 (08:33→21:07)
[2017-12-03] MEDS: CITALOPRAM HYDROBROMIDE 20 MG TAB PO SCH (08:33)
[2017-12-03] MEDS: MULTIVITAMINS, THERA 1 EACH TAB PO SCH (08:33)
[2017-12-03] MEDS: POTASSIUM CHLORIDE ER 10 MEQ TAB.ER.PRT PO SCH (08:33)
[2017-12-03] MEDS: GABAPENTIN 100 MG CAP PO SCH ×2 (08:33→21:07)
[2017-12-03] MEDS: FUROSEMIDE 20 MG TAB PO SCH ×2 (08:33→21:07)
[2017-12-03 11:53] LABS: Glucose,Whole Blood 334 mg/dL (75-99)
--- NOTE | 2017-12-03 14:49 | P.PN ---
Subjective Progress Note Date: 12/03/17 67-year-old female patient with known history of non-Hodgkin's lymphoma with involvement of the liver on the lung who was transferred to the emergency department from her oncologist office because of hypotension and tachycardia. The patient presented to the ED having extreme fatigue and some degree of abdominal discomfort more so in the upper abdomen compared to the lower. She denied having any recent fever. The daughter however told me that the patient was having a low-grade fever of 100.4. She did admit to have some loose liquidy bowel movements 2 bouts yesterday and one bout this morning. No recent antibiotic use. The patient has a Mediport over the right chest area the site of which is clean and that is no erythema and the port is functioning well. She denied having any cough or sputum production. No reported nausea or vomiting or emesis. No chest pain. No angina. Her blood work showed that the patient was neutropenic with a white cell count of 1.6. She had a hemoglobin of 9.3 with a platelet count of 167. Her BUN was 24 with a creatinine of 1.1. She had no significant metabolic acidosis. The patient lactic acid level was at 1.7 at a time of initial evaluation. Liver function tests are also within normal limits. She was unable to give a UA and she refused and declined a Sinclair catheter insertion. The patient was started already on a combination of cefepime and vancomycin. She was found to be hypotensive and she received 2 L of IV fluid without much response and her blood pressure in general. Note that her systolic blood pressure was 74 with a diastolic of 44. At one point, her blood pressure was as low as 69/38. Her heart rate was around 109 and with fluid resuscitation dropped down to 83. She was also started on pressors after 2-1/2 L of IV fluid and pulmonary critical care consultation was requested. CAT scan of the abdomen was done and showed a 3 mm left proximal ureteral stone with obstruction and mild left hydronephrosis. The patient has fluid-filled loops of small bowel with wall thickening and extensive diverticular changes within the colon. Retroperitoneal adenopathy was again described by the CAT scan. There was normal aorta, normal pancreas and spleen, multiple hypodense lesions within the liver noted suggestive of metastatic foci and the patient is postcholecystectomy. Note that this patient lymphoma was a recent diagnosis. She was initially seen in 05/14. The patient had presented with some chest pain. She had a computed tomography scan done to assess for aortic aneurysm, which incidentally revealed upper retroperitoneal lymph nodes. The patient subsequently had a lymph node biopsy which was positive for low-grade non-Hodgkin's lymphoma, with marginal zone lymphoma favored. The patient then had a PET scan done, which showed uptake limited to upper left retroperitoneal area, as well as uptake in the liver. The patient had an MRI of the liver which was not conclusive in terms of ruling in or ruling out liver involvement. She therefore underwent liver biopsy in 07/14 which showed no evidence of lymphoma involvement. It did show evidence of inflammation and steatosis. 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 As the patient was asymptomatic, she was placed on observation which is the standard of care for stage IV low-grade non-Hodgkin lymphoma. Patient was recently started on systemic chemotherapy knowing that the bone marrow biopsy also showed conversion to a high-grade lymphoma and the patient was given a first cycle of systemic chemotherapy that included Cytoxan, Rituxan and high-dose prednisone. The patient was also given Neulasta for neutropenia post chemotherapy. On 12/01/2017, I'm seeing this patient for a follow-up. She is awake and alert and communicating and there is no altered mentation. She is on pressors and she is currently on 2 mics of norepinephrine infusion for blood pressure control. She is producing adequate amount of urine output. Sinclair catheter was inserted. No indication of an underlying UTI based on the UA. The patient was seen by urology regarding the left ureteral calculus and left hydronephrosis. No suggestions for any immediate interventions regarding this issue. The patient is afebrile. The patient has been resuscitated aggressively with IV fluids and her urine output is also improved. On today's blood work, the white cell count is up to 5.2. Her renal function is stable with a creatinine of 1.1. Serum bicarb is down to 16. This is a non-anion gap metabolic acidosis a a anion gap of 13. The patient is receiving stress dose hydrocortisone. The blood sugar is elevated above 300. The patient was started on insulin drip. White cell count is up to 5.2. She still has some vague abdominal discomfort without any active diarrhea. No dysuria fixed urgency. Sinclair catheter is in place. The patient is seen again today 12/02/2017 in follow-up in the intensive care unit. She is currently awake and alert oriented 3. She is still somewhat weak and fatigued. No pulmonary complaints. Maintaining good O2 saturations in the 90s on room air. She had been off norepinephrine through most of the evening but it was started early this morning approximate 7:[address] per minute currently down to 0.5. She is on Solu-Cortef 50 mg IV every 8 hours. Mean arterial pressure standing greater than 60. She's afebrile. Blood and urine cultures reveal no growth. White count 9.8. Hemoglobin 7.6. Bicarb 17. Creatinine 0.85. She is currently on cefepime, Flagyl and vancomycin. She is somewhat depressed this morning. Verbalizing her desire to be a DO NOT RESUSCITATE. We encouraged her to wait until her family arrives to have further discussion. On 12/03/2017 the patient is alert and awake and interactive and much more energetic compared to yesterday. I discharged out of the intensive care unit yesterday. She feels great. No fever chills or night sweats. No other new complaints for now. No significant abdominal pain no nausea no vomiting no emesis. As mentioned the patient has non-Hodgkin's lymphoma and the patient received first cycle of systemic chemotherapy that was followed by febrile neutropenia. Hypotension has recovered. Pressors have been discontinued. The patient is improving.Antibiotic course include a combination of cefepime, Flagyl and vancomycin. All of the cultures of been negative for now and the patient is afebrile. The white cell count is up to 26.5 Objective - Vital Signs Vital signs: Vital Signs Temp 97.7 F 12/03/17 13:44 Pulse 54 L 12/03/17 13:44 Resp 18 12/03/17 13:44 BP 127/71 12/03/17 13:44 Pulse Ox 98 12/03/17 13:44 Intake & Output 12/02/17 12/03/17 12/03/17 18:59 06:59 18:59 Intake Total 1452.296 5543 1160 Output Total 400 Balance 2347.515 6745 1160 Intake: IV 1145 1000 710 0.9 895 10 Dextrose 5% in Water 1, 150 900 600 000 ml @ 75 mls/hr IV . [id number] YVETTE with Sodium Bicarb (1 Meq/ml) 150 ml Rx#:[id number] metroNIDAZOLE-NS PMX 500 100 100 100 mg In Saline 1 100ml.bag @ 100 mls/hr IVPB Q8HR [facility] Rx#:[id number] Intake, IV Titration 30.608 175 50 Amount Cefepime 2 gm In Sodium 50 50 Chloride 0.9% 50 ml @ 100 mls/hr IVPB Q12H [facility] Rx# :[id number] Insulin Regular 100 unit 22.709 In Sodium Chloride 0.9% 100 ml @ Per Protocol IV .Q0M [facility] Rx#:[id number] Norepinephrine 4 mg In 7.899 Sodium Chloride 0.9% 250 ml @ Titrate IV .Q0M [facility] Rx#:[id number] Vancomycin 1,250 mg In 125 Sodium Chloride 0.9% 250 ml @ 125 mls/hr IVPB Q12H [facility] Rx#:[id number] Oral 470 480 400 Output: Urine 400 Other: Voiding Method Indwelling Catheter Toilet Toilet # Voids 2 2 - Exam - Constitutional General appearance: no acute distress, calm and comfortable not in acute distress and the patient is interactive and communicating. - EENT Eyes: EOMI, PERRLA ENT: hearing grossly normal, normal oropharynx - Neck Neck: no lymphadenopathy, Neck was supple and without jugular venous distension , thyromegaly, or carotid bruits. Carotids were easily palpable bilaterally. There was no adenopathy. - Respiratory Respiratory: bilateral: CTA - Cardiovascular Rhythm: regular Heart sounds: normal: S1, S2, Cardiac exam revealed the PMI to be normally situated and sized. The rhythm was regular and no extrasystoles were noted during several minutes of auscultation. The first and second heart sounds were normal and physiologic splitting of the second heart sound was noted. There were no murmurs, rubs, clicks, or gallops. - Gastrointestinal General gastrointestinal: normal bowel sounds, soft, Abdominal exam revealed normal bowel sounds. The abdomen was soft, non-tender, and without masses, organomegaly, or appreciable enlargement of the abdominal aorta. - Integumentary Integumentary: normal - Neurologic Neurologic: CNII-XII intact - Musculoskeletal Musculoskeletal: strength equal bilaterally - Psychiatric Psychiatric: A&O x's 3, appropriate affect Results - Labs CBC & Chem 7: 12/03/17 07:14 12/03/17 07:14 Labs: Abnormal Lab Results - Last 24 Hours (Table) 12/02/17 12/02/17 12/02/17 Range/Units 15:10 15:57 17:29 WBC (3.8-10.6) k/uL RBC (3.80-5.40) m/uL Hgb (11.4-16.0) gm/dL Hct (34.0-46.0) % MCV (80.0-100.0) fL MCH (25.0-35.0) pg RDW (11.5-15.5) % Neutrophils # (1.3-7.7) k/uL Lymphocytes # (1.0-4.8) k/uL Monocytes # (0-1.0) k/uL Basophils # (0-0.2) k/uL Chloride (98-107) mmol/L Carbon Dioxide (22-30) mmol/L Glucose (74-99) mg/dL POC Glucose (mg/dL) 198 H 195 H 141 H (75-99) mg/dL Calcium (8.4-10.2) mg/dL Phosphorus (2.5-4.5) mg/dL 12/02/17 12/03/17 12/03/17 Range/Units 20:43 02:13 07:14 WBC 26.5 H (3.8-10.6) k/uL RBC 3.49 L (3.80-5.40) m/uL Hgb 8.7 L (11.4-16.0) gm/dL Hct 27.4 L (34.0-46.0) % MCV 78.3 L (80.0-100.0) fL MCH 24.8 L (25.0-35.0) pg RDW 17.6 H (11.5-15.5) % Neutrophils # 24.0 H (1.3-7.7) k/uL Lymphocytes # 0.5 L (1.0-4.8) k/uL Monocytes # 1.1 H (0-1.0) k/uL Basophils # 0.3 H (0-0.2) k/uL Chloride (98-107) mmol/L Carbon Dioxide (22-30) mmol/L Glucose (74-99) mg/dL POC Glucose (mg/dL) 255 H 296 H (75-99) mg/dL Calcium (8.4-10.2) mg/dL Phosphorus (2.5-4.5) mg/dL 12/03/17 12/03/17 12/03/17 Range/Units 07:14 07:34 11:51 WBC (3.8-10.6) k/uL RBC (3.80-5.40) m/uL Hgb (11.4-16.0) gm/dL Hct (34.0-46.0) % MCV (80.0-100.0) fL MCH (25.0-35.0) pg RDW (11.5-15.5) % Neutrophils # (1.3-7.7) k/uL Lymphocytes # (1.0-4.8) k/uL Monocytes # (0-1.0) k/uL Basophils # (0-0.2) k/uL Chloride 114 H (98-107) mmol/L Carbon Dioxide 18 L (22-30) mmol/L Glucose 274 H (74-99) mg/dL POC Glucose (mg/dL) 324 H 334 H (75-99) mg/dL Calcium 6.8 L (8.4-10.2) mg/dL Phosphorus 1.9 L (2.5-4.5) mg/dL Microbiology - Last 24 Hours (Table) 11/30/17 12:56 Blood Culture - Preliminary Blood No Growth after 48 hours Assessment and Plan Plan: Assessment 1 acute hypotension, likely of a septic in nature. The patient is back to her baseline in terms of hemodynamics and the blood pressure is normalized. She presented initially with neutropenic fever and suspected septicemia based on hemodynamic instability and hypotension. On today's evaluation of 12/03/2017, the patient is hemodynamically stable and the patient got released from the intensive care unit. All of the cultures of been negative and the patient remains on broad-spectrum antibiotics including a combination of cefepime and Flagyl and vancomycin. Afebrile. White cell count is normalized. 2 stage IV non-Hodgkin's lymphoma low-grade 3 obstructive uropathy with left ureteral stone and hydronephrosis, see urology' s evaluation 4 anemia, normocytic likely chronic 5 obstructive sleep apnea 6 hypothyroidism 7 hyperlipidemia 8 diabetes mellitus 9 history of closed head injury 10 non-anion gap metabolic acidosis, probably related to diarrhea. Plan Continue current antibiotic coverage and discussed with ID further antibiotic management. Clinically improved. No signs of septicemia. Awake and interactive and communicating. Pulmonary and critical care services we'll sign off and will leave the rest of the management up to the medical group and ID.
[2017-12-03 16:41] LABS: Glucose,Whole Blood 346 mg/dL (75-99)
[2017-12-03] MEDS ORDERED: metFORMIN 500 MG TAB PO PRN (18:09)
--- NOTE | 2017-12-03 19:28 | PN ---
PROGRESS NOTE DATE OF SERVICE: 12/03/2017 I am covering for Dr. Solano. This 67-year-old woman was admitted with neutropenic sepsis and as well as severe shock and hypotension, is feeling slightly better. No chest pain. No palpitations. No fever. White count is elevated. The cultures are negative so far. PHYSICAL EXAM: Alert and oriented x2. Pulse 54, blood pressure 127/70, respiration 18, temperature 97.7, pulse ox 98% on room air. HEENT: Conjunctivae normal. Oral mucosa moist. Neck is no jugular venous distention. No carotid bruit. No lymph node enlargement. Cardiovascular System: S1, S2. Respiration: Breath sounds diminished in the bases. Bilateral scattered rhonchi and crackles. ABDOMEN: Soft, obese, nontender. Legs are no edema. No swelling. Nervous system: No focal deficits. LABS: WBC 26.2, hemoglobin is 8.7. Glucose noted. ASSESSMENT: 1. Acute neutropenic sepsis as well as severe septic shock and hypotension, present on admission. 2. Stage IV non-Hodgkin's lymphoma, low-grade on chemotherapy. 3. Obstructive uropathy, left ureteric stone and hydronephrosis, history. 4. Anemia, leukopenia secondary to chemotherapy. 5. Hypokalemia. 6. Hyponatremia. 7. Increased creatinine with chronic kidney disease stage 3. 8. Diabetes type 2. 9. Hypocalcemia. 10.Hypomagnesemia. 11.History of congestive heart failure. 12.Diabetes type 2. 13.Hypertension. 14.Hyperlipidemia. 15.Obstructive sleep apnea. 16.History of cholecystectomy. 17.History of anxiety. 18.Traumatic brain injury. 19.FULL CODE. RECOMMENDATIONS AND DISCUSSION: Recommend to continue current medications, continue monitoring and symptomatic treatment. Otherwise, at this time, I would recommend continue with broad-spectrum IV antibiotics. Repeat labs. Follow the cultures. Guarded prognosis because of multiple complex medical issues. Dr. Solano will follow. MMODL / IJN: [id number] /
[2017-12-03 20:06] LABS: Glucose,Whole Blood 288 mg/dL (75-99)
[2017-12-03] MEDS: LORATADINE 10 MG TAB PO SCH (21:08)
[2017-12-04] MEDS: HYDROcodone/APAP 7.5-325MG 1 EACH TAB PO PRN (00:29)
[2017-12-04] MEDS: metroNIDAZOLE-NS PMX 500 MG in SALINE 1 100ML.BAG IVPB SCH ×4 (01:09→23:58)
[2017-12-04] MEDS: HYDROCORTISONE SUCCINATE 100 MG/2 ML VIAL IV SCH ×3 (01:13→17:32)
[2017-12-04] MEDS: CEFEPIME 2 GM in SODIUM CHLORIDE 0.9% 50 ML IVPB SCH ×2 (02:48→14:06)
[2017-12-04] MEDS: VANCOMYCIN 1,250 MG in SODIUM CHLORIDE 0.9% 250 ML IVPB SCH (05:57)
[2017-12-04 06:09] LABS: Anisocytosis Slight; HCT 26.5 % (34.0-46.0); HGB 8.3 gm/dL (11.4-16.0); Hypochromasia Moderate; MCH 24.2 pg (25.0-35.0); MCHC 31.2 g/dL (31.0-37.0); MCV 77.6 fL (80.0-100.0); Mean Platelet Volume 7.1; Microcytosis Slight; Platelet Count 290 k/uL (150-450); RBC 3.42 m/uL (3.80-5.40); RDW 17.9 % (11.5-15.5); WBC 33.2 k/uL (3.8-10.6)
[2017-12-04 06:31] LABS: Anion Gap 5 mmol/L; Blood Urea Nitrogen 16 mg/dL (7-17); Carbon Dioxide 24 mmol/L (22-30); Chloride 109 mmol/L (98-107); Glucose 307 mg/dL (74-99); Magnesium 1.4 mg/dL (1.6-2.3); Phosphorus 1.7 mg/dL (2.5-4.5); Potassium 3.1 mmol/L (3.5-5.1); Sodium 138 mmol/L (137-145)
[2017-12-04 06:52] LABS: Band Neutrophils % 14 %; Lymphocytes # (M) 1.33 k/uL (1.0-4.8); Metamyelocytes % 3 %; Monocytes # (M) 1.33 k/uL (0-1.0); Myelocytes # (M) 1.66 k/uL (0); Myelocytes % 5 %; Neutrophils % (M) 70 %; Nucleated Red Blood Cells 0 /100 WBC (0-0); Total Cells Counted 200
[2017-12-04 07:17] LABS: Glucose,Whole Blood 330 mg/dL (75-99)
[2017-12-04] MEDS: INSULIN ASPART 100 UNIT/ML 1 ML 10 ML VIAL SQ SCH ×4 (08:40→20:55)
[2017-12-04] MEDS: POTASSIUM CHLORIDE ER 10 MEQ TAB.ER.PRT PO SCH (08:49)
[2017-12-04] MEDS: CITALOPRAM HYDROBROMIDE 20 MG TAB PO SCH (08:49)
[2017-12-04] MEDS: FUROSEMIDE 20 MG TAB PO SCH ×2 (08:49→20:53)
[2017-12-04] MEDS: GABAPENTIN 100 MG CAP PO SCH ×2 (08:49→20:53)
[2017-12-04] MEDS: MAGNESIUM SULFATE-D5W PMX 1 GM in DEXTROSE/WATER 1 100ML.BAG IVPB SCH ×3 (10:05→13:05)
[2017-12-04] MEDS: POTASSIUM CHLORIDE ER 20 MEQ TAB.ER PO SCH ×4 (10:06→18:53)
[2017-12-04] MEDS: DEXTROSE 5% IN WATER 1,000 ML with SODIUM BICARB (1 MEQ/ML) 150 ML IV SCH (11:31)
[2017-12-04 11:32] LABS: Glucose,Whole Blood 300 mg/dL (75-99)
--- NOTE | 2017-12-04 12:00 | P.PN ---
Subjective Patient resting in bed without complaint at this time Objective - Vital Signs Vital signs: Vital Signs Temp 98.2 F 12/04/17 05:00 Pulse 47 L 12/04/17 05:00 Resp 16 12/04/17 05:00 BP 111/63 12/04/17 05:00 Pulse Ox 95 12/04/17 05:00 Intake & Output 12/03/17 12/04/17 12/04/17 18:59 06:59 18:59 Intake Total 1160 2500 Balance 1160 2500 Intake: IV 710 600 0.9 10 Dextrose 5% in Water 1, 600 600 000 ml @ 75 mls/hr IV . [id number] YVETTE with Sodium Bicarb (1 Meq/ml) 150 ml Rx#:[id number] metroNIDAZOLE-NS PMX 500 100 mg In Saline 1 100ml.bag @ 100 mls/hr IVPB Q8HR [facility] Rx#:[id number] Intake, IV Titration 50 400 Amount Cefepime 2 gm In Sodium 50 50 Chloride 0.9% 50 ml @ 100 mls/hr IVPB Q12H [facility] Rx# :[id number] Vancomycin 1,250 mg In 250 Sodium Chloride 0.9% 250 ml @ 125 mls/hr IVPB Q12H [facility] Rx#:[id number] metroNIDAZOLE-NS PMX 500 100 mg In Saline 1 100ml.bag @ 100 mls/hr IVPB Q8HR [facility] Rx#:[id number] Oral 400 1500 Other: Voiding Method Toilet Toilet # Voids 2 2 - Constitutional General appearance: Present: mild distress, obese - EENT Eyes: Present: PERRLA Ears: bilateral: normal - Respiratory Respiratory: bilateral: CTA - Cardiovascular Rhythm: regular - Gastrointestinal General gastrointestinal: Present: soft - Integumentary Integumentary: Present: normal - Neurologic Neurologic: Present: CNII-XII intact - Musculoskeletal Musculoskeletal: Present: generalized weakness - Psychiatric Psychiatric: Present: A&O x's 3, appropriate affect, intact judgment & insight - Labs CBC & Chem 7: 12/04/17 05:32 12/04/17 05:32 Labs: Abnormal Lab Results - Last 24 Hours (Table) 12/03/17 12/03/17 12/03/17 Range/Units 07:14 16:39 20:05 WBC (3.8-10.6) k/uL RBC (3.80-5.40) m/uL Hgb (11.4-16.0) gm/dL Hct (34.0-46.0) % MCV (80.0-100.0) fL MCH (25.0-35.0) pg RDW (11.5-15.5) % Neutrophils # (Manual) (1.3-7.7) k/uL Monocytes # (Manual) (0-1.0) k/uL Metamyelocytes # (Man) (0) k/uL Myelocytes # (Manual) (0) k/uL Potassium (3.5-5.1) mmol/L Chloride (98-107) mmol/L Glucose (74-99) mg/dL POC Glucose (mg/dL) 346 H 288 H (75-99) mg/dL Calcium (8.4-10.2) mg/dL Phosphorus (2.5-4.5) mg/dL Magnesium (1.6-2.3) mg/dL IgG 510.0 L (700.0-1600.0) mg/dL 12/04/17 12/04/17 12/04/17 Range/Units 05:32 05:32 07:15 WBC 33.2 H (3.8-10.6) k/uL RBC 3.42 L (3.80-5.40) m/uL Hgb 8.3 L (11.4-16.0) gm/dL Hct 26.5 L (34.0-46.0) % MCV 77.6 L (80.0-100.0) fL MCH 24.2 L (25.0-35.0) pg RDW 17.9 H (11.5-15.5) % Neutrophils # (Manual) 27.80 H (1.3-7.7) k/uL Monocytes # (Manual) 1.33 H (0-1.0) k/uL Metamyelocytes # (Man) 1.00 H (0) k/uL Myelocytes # (Manual) 1.66 H (0) k/uL Potassium 3.1 L (3.5-5.1) mmol/L Chloride 109 H (98-107) mmol/L Glucose 307 H (74-99) mg/dL POC Glucose (mg/dL) 330 H (75-99) mg/dL Calcium 7.0 L (8.4-10.2) mg/dL Phosphorus 1.7 L (2.5-4.5) mg/dL Magnesium 1.4 L (1.6-2.3) mg/dL IgG (700.0-1600.0) mg/dL 12/04/17 Range/Units 11:31 WBC (3.8-10.6) k/uL RBC (3.80-5.40) m/uL Hgb (11.4-16.0) gm/dL Hct (34.0-46.0) % MCV (80.0-100.0) fL MCH (25.0-35.0) pg RDW (11.5-15.5) % Neutrophils # (Manual) (1.3-7.7) k/uL Monocytes # (Manual) (0-1.0) k/uL Metamyelocytes # (Man) (0) k/uL Myelocytes # (Manual) (0) k/uL Potassium (3.5-5.1) mmol/L Chloride (98-107) mmol/L Glucose (74-99) mg/dL POC Glucose (mg/dL) 300 H (75-99) mg/dL Calcium (8.4-10.2) mg/dL Phosphorus (2.5-4.5) mg/dL Magnesium (1.6-2.3) mg/dL IgG (700.0-1600.0) mg/dL Microbiology - Last 24 Hours (Table) 11/30/17 12:56 Blood Culture - Preliminary Blood No Growth after 72 hours - Imaging and Cardiology Chest x-ray: report reviewed CT scan - abdomen: report reviewed Assessment and Plan Plan: Assessment Acute neutropenic sepsis as well as severe is septic shock with hypotension Stage IV non-Hodgkin's lymphoma on the chemotherapy Obstructive uropathy Anemia leukopenia secondary to chemotherapy Hypokalemia Hyponatremia Chronic kidney disease stage III Diabetes type 2 Hypokalemia Hypo-magnesium History of congestive heart failure Hypertension Hyperlipidemia Sleep apnea Plan Continue consultation with Dr. Samia Aponte
[2017-12-04] MEDS: MULTIVITAMINS, THERA 1 EACH TAB PO SCH (13:05)
--- NOTE | 2017-12-04 16:28 | CDI ---
Last Revision, January 2017 Documentation Clarification Form Date: 12/04/2017 4:11:35 PM From: Tootie Tabor RN, CCDS Admit Date: 11/30/2017 4:54:00 PM Patient Name: Maricruz Ledezma Visit Number: [id number] Discharge Date: ATTENTION: The Clinical Documentation Specialists (CDI) and [facility] Coding Staff appreciate your assistance in clarifying documentation. Please respond to the clarification below the line at the bottom and electronically sign. The CDI & [facility] Coding staff will review the response and follow-up if needed. Please note: Queries are made part of the Legal Health Record. If you have any questions, please contact the author of this message via ITS. Leonard Scott MD History/Risk Factors: Non-Hodgkin's Lymphoma. Diabetes Mellitus, Hypertension, Heart failure Clinical Indicators: Present with complaints of low blood pressure, elevated heart rate, extremely fatigued. She denied cough or difficulty breathing or shortness of breath. She has a past medical history of heart failure with ongoing treatment with lasix. VS/Pulse OX on admit: 109 18 99.2 95 % RA BNP: Not noted Echocardiogram Results: EF 55-60% Chest X Ray: Stable nodule left midlung Treatment: Lasix PO In your professional opinion, can you please clarify the acuity and type of CHF if known? Diastolic Heart Failure: Acute Chronic Acute on Chronic Systolic & Diastolic Heart Failure: Acute Chronic Acute on Chronic Heart Failure Unable to Determine Other, please specify Please continue to document in your progress notes and discharge summary in order to capture severity of illness and risk of mortality. Include clinical findings that support your diagnosis. MTDD
[2017-12-04 16:59] LABS: Glucose,Whole Blood 363 mg/dL (75-99)
--- NOTE | 2017-12-04 17:30 | P.PN ---
Subjective Progress Note Date: 12/04/17 Principal diagnosis: NHL s/p 1 cycle of R-CEOP Pt seen todaay in follow up, she does not feel well but, when asked specifics she did not have any c/o other then nothing tastes good and BLE swelling. She denies fever, oral irritation, nausea, vomiting, she is SOB on exertion but comfortable at rest, no abd pain, diarrhea, constipation, bleeding, BLE swelling likely r/t fluids, she is unsteady on her feet, walker is at bedside, she is sitting in a chair, no pain. Objective - Vital Signs Vital signs: Vital Signs Temp 97.6 F 12/04/17 12:45 Pulse 57 L 12/04/17 12:45 Resp 16 12/04/17 12:45 BP 118/72 12/04/17 12:45 Pulse Ox 96 12/04/17 12:45 Intake & Output 12/03/17 12/04/17 12/04/17 18:59 06:59 18:59 Intake Total 1160 2500 Balance 1160 2500 Weight 74.7 kg Intake: IV 710 600 0.9 10 Dextrose 5% in Water 1, 600 600 000 ml @ 75 mls/hr IV . [id number] YVETTE with Sodium Bicarb (1 Meq/ml) 150 ml Rx#:[id number] metroNIDAZOLE-NS PMX 500 100 mg In Saline 1 100ml.bag @ 100 mls/hr IVPB Q8HR YVETTE Rx#:[id number] Intake, IV Titration 50 400 Amount Cefepime 2 gm In Sodium 50 50 Chloride 0.9% 50 ml @ 100 mls/hr IVPB Q12H YVETTE Rx# :[id number] Vancomycin 1,250 mg In 250 Sodium Chloride 0.9% 250 ml @ 125 mls/hr IVPB Q12H YVETTE Rx#:[id number] metroNIDAZOLE-NS PMX 500 100 mg In Saline 1 100ml.bag @ 100 mls/hr IVPB Q8HR YVETTE Rx#:[id number] Oral 400 1500 Other: Voiding Method Toilet Toilet # Voids 2 2 - Constitutional General appearance: Present: average body habitus, cooperative, no acute distress - EENT Eyes: Present: EOMI - Respiratory Respiratory: bilateral: CTA - Cardiovascular Heart sounds: normal: S1, S2 - Peripheral edema leg Peripheral Edema: bilateral: 1+, Pitting - Gastrointestinal General gastrointestinal: Present: normal bowel sounds, soft - Integumentary Integumentary: Present: pale - Neurologic Neurologic: Present: CNII-XII intact - Musculoskeletal Musculoskeletal: Present: generalized weakness, strength equal bilaterally - Psychiatric Psychiatric: Present: A&O x's 3, appropriate affect, intact judgment & insight - Labs CBC & Chem 7: 12/04/17 05:32 12/04/17 14:15 Labs: Abnormal Lab Results - Last 24 Hours (Table) 12/03/17 12/03/17 12/04/17 Range/Units 07:14 20:05 05:32 WBC 33.2 H (3.8-10.6) k/uL RBC 3.42 L (3.80-5.40) m/uL Hgb 8.3 L (11.4-16.0) gm/dL Hct 26.5 L (34.0-46.0) % MCV 77.6 L (80.0-100.0) fL MCH 24.2 L (25.0-35.0) pg RDW 17.9 H (11.5-15.5) % Neutrophils # (Manual) 27.80 H (1.3-7.7) k/uL Monocytes # (Manual) 1.33 H (0-1.0) k/uL Metamyelocytes # (Man) 1.00 H (0) k/uL Myelocytes # (Manual) 1.66 H (0) k/uL Potassium (3.5-5.1) mmol/L Chloride (98-107) mmol/L Glucose (74-99) mg/dL POC Glucose (mg/dL) 288 H (75-99) mg/dL Calcium (8.4-10.2) mg/dL Phosphorus (2.5-4.5) mg/dL Magnesium (1.6-2.3) mg/dL IgG 510.0 L (700.0-1600.0) mg/dL 12/04/17 12/04/17 12/04/17 Range/Units 05:32 07:15 11:31 WBC (3.8-10.6) k/uL RBC (3.80-5.40) m/uL Hgb (11.4-16.0) gm/dL Hct (34.0-46.0) % MCV (80.0-100.0) fL MCH (25.0-35.0) pg RDW (11.5-15.5) % Neutrophils # (Manual) (1.3-7.7) k/uL Monocytes # (Manual) (0-1.0) k/uL Metamyelocytes # (Man) (0) k/uL Myelocytes # (Manual) (0) k/uL Potassium 3.1 L (3.5-5.1) mmol/L Chloride 109 H (98-107) mmol/L Glucose 307 H (74-99) mg/dL POC Glucose (mg/dL) 330 H 300 H (75-99) mg/dL Calcium 7.0 L (8.4-10.2) mg/dL Phosphorus 1.7 L (2.5-4.5) mg/dL Magnesium 1.4 L (1.6-2.3) mg/dL IgG (700.0-1600.0) mg/dL 12/04/17 12/04/17 Range/Units 14:15 16:58 WBC (3.8-10.6) k/uL RBC (3.80-5.40) m/uL Hgb (11.4-16.0) gm/dL Hct (34.0-46.0) % MCV (80.0-100.0) fL MCH (25.0-35.0) pg RDW (11.5-15.5) % Neutrophils # (Manual) (1.3-7.7) k/uL Monocytes # (Manual) (0-1.0) k/uL Metamyelocytes # (Man) (0) k/uL Myelocytes # (Manual) (0) k/uL Potassium 3.0 L (3.5-5.1) mmol/L Chloride (98-107) mmol/L Glucose (74-99) mg/dL POC Glucose (mg/dL) 363 H (75-99) mg/dL Calcium (8.4-10.2) mg/dL Phosphorus (2.5-4.5) mg/dL Magnesium (1.6-2.3) mg/dL IgG (700.0-1600.0) mg/dL Microbiology - Last 24 Hours (Table) 11/30/17 12:56 Blood Culture - Preliminary Blood No Growth after 96 hours Assessment and Plan (1) Antineoplastic chemotherapy induced anemia Narrative/Plan: Not requiring transfusion, CBC while inpatient Current Visit: Yes Status: Acute Priority: Medium Code(s): D64.81 - ANEMIA DUE TO ANTINEOPLASTIC CHEMOTHERAPY; T45.1X5A - ADVERSE EFFECT OF ANTINEOPLASTIC AND IMMUNOSUP DRUGS, INIT SNOMED Code(s): 235556388 (2) Neutrophilic leukocytosis Narrative/Plan: Secondary to GCSF given post chemo. Current Visit: Yes Status: Acute Priority: Low Code(s): D72.9 - DISORDER OF WHITE BLOOD CELLS, UNSPECIFIED SNOMED Code(s): 030506504 (3) Unsteady gait Narrative/Plan: PT/asked to see pt for gait training and assistive device training Current Visit: Yes Status: Acute Priority: High Code(s): R26.81 - UNSTEADINESS ON FEET SNOMED Code(s): 83442102 (4) Non Hodgkin's lymphoma Narrative/Plan: Pt is s/p 1stcycle of R-CEOP. Hematological toxicities moderate and have resolved rather quickly. She physically tolerated treatment fair. Did encourage pt that the 1st treatment for lymphoma does tend to be harder then the subsequent because she was compromised coming into treatment. Plan to continue treatment once she has recovered from current situation. Pt verbalized understanding Current Visit: No Status: Acute Priority: Medium Code(s): C85.90 - NON- HODGKIN LYMPHOMA, UNSPECIFIED, UNSPECIFIED SITE SNOMED Code(s): 987046633
[2017-12-04 20:13] LABS: Glucose,Whole Blood 384 mg/dL (75-99)
[2017-12-04] MEDS: LORATADINE 10 MG TAB PO SCH (20:53)
[2017-12-04] MEDS ORDERED: Potassium Replacement Protocol 1 EACH MISC MISCELLANE PRN (21:24)
--- NOTE | 2017-12-04 21:41 | P.PN ---
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 At the time of her admission she had evidence of neutropenia and fever and constantly was admitted for sepsis. She required fluid resuscitation as well as his pressor support originally. She is not having significant improvement in is feeling better. She is very pertinent recent history in that she was having some abdominal pain and underwent imaging studies that reveal evidence of extensive intra-abdominal lymphadenopathy. Workup eventually was performed revealing the evidence of B cell non-Hodgkin's lymphoma stage IV is noted by the bone marrow involvement. Due to her age and renal dysfunction she was treated with R-CEOP. She is now presenting with evidence of febrile neutropenia generalized malaise and feeling quite poorly overall. She does have some chronic cognitive delays. Also worsened when she was quite ill which are now improving as noted by her sister who is present. The patient at this time is feeling better. She has received growth factor support her white blood cell count is improved. Her fevers have improved. She is having no chills or rigors. She had having much discomfort at this time. No evidence of any bleeding is occurring. 12/04/2017 patient is doing somewhat better today. She is comfortable and certainly look forward to going home. She was having some difficulty with acidosis and bicarbonate was being given intravenously by infusion. With her edema this can be discontinued. She is already recovering from the toxicities of the first round of her chemotherapy. Feeling better today but has generalized weakness. Objective - Vital Signs Vital signs: Vital Signs Temp 97.6 F 12/04/17 12:45 Pulse 57 L 12/04/17 12:45 Resp 16 12/04/17 12:45 BP 118/72 12/04/17 12:45 Pulse Ox 96 12/04/17 12:45 Intake & Output 12/04/17 12/04/17 12/05/17 06:59 18:59 06:59 Intake Total 2500 Balance 2500 Weight 74.7 kg Intake: IV 600 Dextrose 5% in Water 1, 600 000 ml @ 75 mls/hr IV . [id number] YVETTE with Sodium Bicarb (1 Meq/ml) 150 ml Rx#:[id number] Intake, IV Titration 400 Amount Cefepime 2 gm In Sodium 50 Chloride 0.9% 50 ml @ 100 mls/hr IVPB Q12H YVETTE Rx# :[id number] Vancomycin 1,250 mg In 250 Sodium Chloride 0.9% 250 ml @ 125 mls/hr IVPB Q12H YVETTE Rx#:[id number] metroNIDAZOLE-NS PMX 500 100 mg In Saline 1 100ml.bag @ 100 mls/hr IVPB Q8HR YVETTE Rx#:[id number] Oral 1500 Other: Voiding Method Toilet # Voids 2 3 - Exam Pleasant 67-year-old woman who is in no distress, vasopressor therapy has been weaned off HEENT: Anicteric conjunctiva are pink and moist nasal mucosa grossly intact without significant lesions, there is no thrush. Does have pallor. Neck: The neck is supple without significant lymphadenopathy or thyromegaly. Lungs: There are symmetrical air entry without significant crackles or wheezing. No dullness or egophony Heart: Regular rate and rhythm with an audible S1-S2, no S3 no S4. There is no significant murmur click or rub, PMI was nondisplaced. Abdomen: Positive bowel sounds soft and nontender without palpable masses or organomegaly. There was no guarding or rebound. Extremities: The upper extremities have excellent pulses they are symmetric, no significant petechiae or telangiectasia. No splinter hemorrhages were noted. The lower extremities have developed bilateral lower extremity edema that is symmetric without ulcerations. Neuro: Awake alert oriented to person place and time. There are no acute new gross focal sensory motor deficits. Does have a history of head trauma with some memory deficits. - Labs CBC & Chem 7: 12/04/17 05:32 12/04/17 20:09 Labs: Abnormal Lab Results - Last 24 Hours (Table) 12/03/17 12/04/17 12/04/17 Range/Units 07:14 05:32 05:32 WBC 33.2 H (3.8-10.6) k/uL RBC 3.42 L (3.80-5.40) m/uL Hgb 8.3 L (11.4-16.0) gm/dL Hct 26.5 L (34.0-46.0) % MCV 77.6 L (80.0-100.0) fL MCH 24.2 L (25.0-35.0) pg RDW 17.9 H (11.5-15.5) % Neutrophils # (Manual) 27.80 H (1.3-7.7) k/uL Monocytes # (Manual) 1.33 H (0-1.0) k/uL Metamyelocytes # (Man) 1.00 H (0) k/uL Myelocytes # (Manual) 1.66 H (0) k/uL Potassium 3.1 L (3.5-5.1) mmol/L Chloride 109 H (98-107) mmol/L Glucose 307 H (74-99) mg/dL POC Glucose (mg/dL) (75-99) mg/dL Calcium 7.0 L (8.4-10.2) mg/dL Phosphorus 1.7 L (2.5-4.5) mg/dL Magnesium 1.4 L (1.6-2.3) mg/dL IgG 510.0 L (700.0-1600.0) mg/dL 12/04/17 12/04/17 12/04/17 Range/Units 07:15 11:31 14:15 WBC (3.8-10.6) k/uL RBC (3.80-5.40) m/uL Hgb (11.4-16.0) gm/dL Hct (34.0-46.0) % MCV (80.0-100.0) fL MCH (25.0-35.0) pg RDW (11.5-15.5) % Neutrophils # (Manual) (1.3-7.7) k/uL Monocytes # (Manual) (0-1.0) k/uL Metamyelocytes # (Man) (0) k/uL Myelocytes # (Manual) (0) k/uL Potassium 3.0 L (3.5-5.1) mmol/L Chloride (98-107) mmol/L Glucose (74-99) mg/dL POC Glucose (mg/dL) 330 H 300 H (75-99) mg/dL Calcium (8.4-10.2) mg/dL Phosphorus (2.5-4.5) mg/dL Magnesium (1.6-2.3) mg/dL IgG (700.0-1600.0) mg/dL 12/04/17 12/04/17 12/04/17 Range/Units 16:58 20:09 20:11 WBC (3.8-10.6) k/uL RBC (3.80-5.40) m/uL Hgb (11.4-16.0) gm/dL Hct (34.0-46.0) % MCV (80.0-100.0) fL MCH (25.0-35.0) pg RDW (11.5-15.5) % Neutrophils # (Manual) (1.3-7.7) k/uL Monocytes # (Manual) (0-1.0) k/uL Metamyelocytes # (Man) (0) k/uL Myelocytes # (Manual) (0) k/uL Potassium 3.3 L (3.5-5.1) mmol/L Chloride (98-107) mmol/L Glucose (74-99) mg/dL POC Glucose (mg/dL) 363 H 384 H (75-99) mg/dL Calcium (8.4-10.2) mg/dL Phosphorus (2.5-4.5) mg/dL Magnesium (1.6-2.3) mg/dL IgG (700.0-1600.0) mg/dL Microbiology - Last 24 Hours (Table) 11/30/17 12:56 Blood Culture - Preliminary Blood No Growth after 96 hours Laboratory Results WBC 33.2 k/uL (3.8-10.6) H 12/04/17 05:32 RBC 3.42 m/uL (3.80-5.40) L 12/04/17 05:32 Hgb 8.3 gm/dL (11.4-16.0) L 12/04/17 05:32 Hct 26.5 % (34.0-46.0) L 12/04/17 05:32 MCV 77.6 fL (80.0-100.0) L 12/04/17 05:32 MCH 24.2 pg (25.0-35.0) L 12/04/17 05:32 MCHC 31.2 g/dL (31.0-37.0) 12/04/17 05:32 RDW 17.9 % (11.5-15.5) H 12/04/17 05:32 Plt Count 290 k/uL (150-450) 12/04/17 05:32 Neutrophils % 91 % 12/03/17 07:14 Neutrophils % (Manual) 70 % 12/04/17 05:32 Band Neutrophils % 14 % 12/04/17 05:32 Lymphocytes % 2 % 12/03/17 07:14 Lymphocytes % (Manual) 4 % 12/04/17 05:32 Monocytes % 4 % 12/03/17 07:14 Monocytes % (Manual) 4 % 12/04/17 05:32 Eosinophils % 0 % 12/03/17 07:14 Eosinophils % (Manual) 3 % 11/30/17 12:56 Basophils % 1 % 12/03/17 07:14 Metamyelocytes % 3 % 12/04/17 05:32 Myelocytes % 5 % 12/04/17 05:32 Neutrophils # 24.0 k/uL (1.3-7.7) H 12/03/17 07:14 Neutrophils # (Manual) 27.80 k/uL (1.3-7.7) H 12/04/17 05:32 Lymphocytes # 0.5 k/uL (1.0-4.8) L 12/03/17 07:14 Lymphocytes # (Manual) 1.33 k/uL (1.0-4.8) 12/04/17 05:32 Monocytes # 1.1 k/uL (0-1.0) H 12/03/17 07:14 Monocytes # (Manual) 1.33 k/uL (0-1.0) H 12/04/17 05:32 Eosinophils # 0.1 k/uL (0-0.7) 12/03/17 07:14 Eosinophils # (Manual) 0.05 k/uL (0-0.7) 11/30/17 12:56 Basophils # 0.3 k/uL (0-0.2) H 12/03/17 07:14 Metamyelocytes # (Man) 1.00 k/uL (0) H 12/04/17 05:32 Myelocytes # (Manual) 1.66 k/uL (0) H 12/04/17 05:32 Nucleated RBCs 0 /100 WBC (0-0) 12/04/17 05:32 Manual Slide Review Performed 12/04/17 05:32 Toxic Granulation Present 12/01/17 05:04 Dohle Bodies Present 12/01/17 05:04 Polychromasia Present 12/01/17 05:04 Hypochromasia Moderate 12/04/17 05:32 Poikilocytosis Slight 12/03/17 07:14 Poikilocytosis (manual Present 12/01/17 05:04 Anisocytosis Slight 12/04/17 05:32 Microcytosis Slight 12/04/17 05:32 Crenated Cell Present 12/01/17 05:04 PT 11.3 sec (9.0-12.0) 11/30/17 12:56 INR 1.2 (<1.2) H 11/30/17 12:56 APTT 25.0 sec (22.0-30.0) 11/30/17 12:56 Sodium 138 mmol/L (137-145) 12/04/17 05:32 Potassium 3.3 mmol/L (3.5-5.1) L 12/04/17 20:09 Chloride 109 mmol/L (98-107) H 12/04/17 05:32 Carbon Dioxide 24 mmol/L (22-30) 12/04/17 05:32 Anion Gap 5 mmol/L 12/04/17 05:32 BUN 16 mg/dL (7-17) 12/04/17 05:32 Creatinine 0.75 mg/dL (0.52-1.04) 12/04/17 05:32 Est GFR (CKD-EPI)AfAm >90 (>60 ml/min/1.73 sqM) 12/04/17 05:32 Est GFR (CKD-EPI)NonAf 84 (>60 ml/min/1.73 sqM) 12/04/17 05:32 Glucose 307 mg/dL (74-99) H 12/04/17 05:32 POC Glucose (mg/dL) 384 mg/dL (75-99) H 12/04/17 20:11 POC Glu Social Work Program Coordinator ID Josy Ro 12/04/17 20:[address] Glu mg/dL 169 12/01/17 05:04 Hemoglobin A1c 7.5 % (4.0-6.0) H 12/01/17 05:04 Plasma Lactic Acid Tim 1.7 mmol/L (0.7-2.0) 11/30/17 12:56 Calcium 7.0 mg/dL (8.4-10.2) L 12/04/17 05:32 Phosphorus 1.7 mg/dL (2.5-4.5) L 12/04/17 05:32 Magnesium 1.4 mg/dL (1.6-2.3) L 12/04/17 05:32 Total Bilirubin 0.6 mg/dL (0.2-1.3) 11/30/17 12:56 AST 22 U/L (14-36) 11/30/17 12:56 ALT 36 U/L (9-52) 11/30/17 12:56 Alkaline Phosphatase 147 U/L (38-126) H 11/30/17 12:56 Troponin I <0.012 ng/mL (0.000-0.034) 12/01/17 20:00 Total Protein 5.4 g/dL (6.3-8.2) L 11/30/17 12:56 Albumin 2.6 g/dL (3.5-5.0) L 11/30/17 12:56 Cortisol 63 ug/dL 12/02/17 05:29 Urine Color Yellow 11/30/17 18:50 Urine Appearance Cloudy (Clear) H 11/30/17 18:50 Urine pH 5.0 (5.0-8.0) 11/30/17 18:50 Ur Specific [place] 1.025 (1.001-1.035) 11/30/17 18:50 Urine Protein Trace (Negative) H 11/30/17 18:50 Urine Glucose (UA) Negative (Negative) 11/30/17 18:50 Urine Ketones Trace (Negative) H 11/30/17 18:50 Urine Blood Small (Negative) H 11/30/17 18:50 Urine Nitrite Negative (Negative) 11/30/17 18:50 Urine Bilirubin Negative (Negative) 11/30/17 18:50 Urine Urobilinogen <2.0 mg/dL (<2.0) 11/30/17 18:50 Ur Leukocyte Esterase Negative (Negative) 11/30/17 18:50 Urine RBC 11 /hpf (0-5) H 11/30/17 18:50 Urine WBC 4 /hpf (0-5) 11/30/17 18:50 Ur Squamous Epith Cells <1 /hpf (0-4) 11/30/17 18:50 Urine Mucus Rare /hpf (None) H 11/30/17 18:50 Vancomycin Trough 29.8 ug/mL 12/04/17 05:32 IgG 510.0 mg/dL (700.0-1600.0) L 12/03/17 07:14 Blood Type O Positive 11/30/17 12:56 Blood Type Recheck CABO Indicated 11/30/17 12:56 Antibody Screen NEGATIVE 11/30/17 12:56 Spec Expiration Date 11/30/2017 - 1425 11/30/17 12:56 Microbiology 11/30/17 12:56 Blood Blood Culture - Preliminary No Growth after 96 hours 11/30/17 18:50 Urine,Catheterized Urine Culture - Final Assessment and Plan (1) Febrile neutropenia Narrative/Plan: 67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 She has received her first course of chemotherapy and presents with febrile neutropenia. She was also hypotensive requiring fluid resuscitation and vasopressor therapy. She is now considerably improved. She is no longer requiring vasopressor r support and is feeling considerably better. Hematology oncology is following and transfusions as per their protocol. Cultures are in process and is receiving antibiotic therapy with cefepime, metronidazole and vancomycin at this time pending further culture data. The patient's bone marrow recovery and cultures will further direct the course of antibiotic therapy. IgG level can be obtained to further help direct courses of treatment also. 12/04/2017 the patient is feeling better today. Still has some generalized weakness and is about some lower extremity edema. Her IV fluid was discontinued now that her carbon dioxide has normalized. Continue with elevation the limbs all she is at rest for the edema. Her febrile neutropenia has resolved and she is doing considerably better at this time. If she gets ready for discharge to home she will be able to transition to a course of oral levofloxacin 500 mg a day for 7 days in conjunction with the wraparound facilitator. Please note that her ciprofloxacin ALLERGY was of heartburn. Her hypokalemia is being supplemented and hopefully with discontinuation of fluid she'll have rapid correction of this. Oncology is following and are making plans for her next round of chemotherapy. IgG level is minimally low if she has further difficulties with infections may benefit from intravenous immunoglobulin infusion. Current Visit: Yes Status: Acute Code(s): D70.9 - NEUTROPENIA, UNSPECIFIED; R50.81 - FEVER PRESENTING WITH CONDITIONS CLASSIFIED ELSEWHERE SNOMED Code(s) : 270499321 (2) Bicytopenia Current Visit: Yes Status: Acute Code(s): D75.89 - OTHER SPECIFIED DISEASES OF BLOOD AND BLOOD-FORMING ORGANS SNOMED Code(s): 886779124 (3) Non Hodgkin's lymphoma Current Visit: No Status: Acute Priority: Medium Code(s): C85.90 - NON- HODGKIN LYMPHOMA, UNSPECIFIED, UNSPECIFIED SITE SNOMED Code(s): 626116008
[2017-12-04] MEDS: POTASSIUM CHLORIDE 20 MEQ in WATER FOR INJECTION 1 100ML.BAG IVPB SCH ×2 (21:43→22:57)
[2017-12-05] MEDS: CEFEPIME 2 GM in SODIUM CHLORIDE 0.9% 50 ML IVPB SCH ×3 (01:36→20:27)
[2017-12-05] MEDS: VANCOMYCIN 1,250 MG in SODIUM CHLORIDE 0.9% 250 ML IVPB SCH (06:03)
[2017-12-05 07:04] LABS: Glucose,Whole Blood 346 mg/dL (75-99)
[2017-12-05] MEDS: INSULIN ASPART 100 UNIT/ML 1 ML 10 ML VIAL SQ SCH ×4 (08:05→20:27)
[2017-12-05] MEDS: HYDROCORTISONE SUCCINATE 100 MG/2 ML VIAL IV SCH ×3 (08:06→17:11)
[2017-12-05] MEDS: MULTIVITAMINS, THERA 1 EACH TAB PO SCH (08:07)
[2017-12-05] MEDS: CITALOPRAM HYDROBROMIDE 20 MG TAB PO SCH (08:07)
[2017-12-05] MEDS: GABAPENTIN 100 MG CAP PO SCH ×2 (08:07→20:27)
[2017-12-05] MEDS: POTASSIUM CHLORIDE ER 10 MEQ TAB.ER.PRT PO SCH (08:07)
[2017-12-05] MEDS: FUROSEMIDE 20 MG TAB PO SCH ×2 (08:07→20:27)
[2017-12-05] MEDS: metroNIDAZOLE-NS PMX 500 MG in SALINE 1 100ML.BAG IVPB SCH (08:13)
[2017-12-05 08:49] LABS: Anion Gap 10 mmol/L; Blood Urea Nitrogen 11 mg/dL (7-17); Calcium 7.5 mg/dL (8.4-10.2); Carbon Dioxide 22 mmol/L (22-30); Chloride 109 mmol/L (98-107); Glucose 338 mg/dL (74-99); Magnesium 1.8 mg/dL (1.6-2.3); Phosphorus 1.6 mg/dL (2.5-4.5); Potassium 3.6 mmol/L (3.5-5.1); Sodium 141 mmol/L (137-145)
[2017-12-05 08:52] LABS: Anisocytosis Slight; HCT 30.3 % (34.0-46.0); Hypochromasia Moderate; MCH 25.1 pg (25.0-35.0); MCHC 32.2 g/dL (31.0-37.0); Mean Platelet Volume 6.9; Microcytosis Slight; Platelet Count 417 k/uL (150-450); RBC 3.89 m/uL (3.80-5.40); RDW 18.2 % (11.5-15.5); WBC 37.1 k/uL (3.8-10.6)
[2017-12-05 08:57] LABS: HGB 9.8 gm/dL (11.4-16.0)
[2017-12-05 10:17] LABS: Band Neutrophils % 6 %; Eosinophils # (M) 0.37 k/uL (0-0.7); Lymphocytes # (M) 2.23 k/uL (1.0-4.8); Metamyelocytes # (M) 2.23 k/uL (0); Metamyelocytes % 6 %; Monocytes # (M) 2.23 k/uL (0-1.0); Myelocytes # (M) 1.48 k/uL (0); Myelocytes % 4 %; Neutrophils % (M) 73 %; Nucleated Red Blood Cells 0 /100 WBC (0-0); Poikilocytosis (M) Present; Polychromasia Present; Promyelocytes # (M) 0.37 k/uL (0); Promyelocytes % 1 %; Total Cells Counted 200; Toxic Granulation Present
[2017-12-05 11:20] LABS: Glucose,Whole Blood 312 mg/dL (75-99)
--- NOTE | 2017-12-05 12:15 | P.PN ---
Subjective Patient stating that she would like to go home hopefully we can develop plan between Dr. Samia Aponte Objective - Vital Signs Vital signs: Vital Signs Temp 92.8 F L 12/05/17 11:56 Pulse 54 L 12/05/17 11:56 Resp 17 12/05/17 11:56 BP 138/75 12/05/17 11:56 Pulse Ox 96 12/05/17 11:56 Intake & Output 12/04/17 12/05/17 12/05/17 18:59 06:59 18:59 Intake Total 940 Balance 940 Weight 74.7 kg 77 kg Intake: IV 100 metroNIDAZOLE-NS PMX 500 100 mg In Saline 1 100ml.bag @ 100 mls/hr IVPB Q8HR YVETTE Rx#:[id number] Intake, IV Titration 250 Amount Cefepime 2 gm In Sodium 50 Chloride 0.9% 50 ml @ 100 mls/hr IVPB Q12H YVETTE Rx# :[id number] Potassium Chloride 20 meq 200 In Water For Injection 1 100ml.bag @ 50 mls/hr IVPB Q2H YVETTE Rx#: [id number] Oral 590 Other: Voiding Method Toilet Toilet # Voids 3 3 - EENT Eyes: Present: PERRLA Ears: bilateral: normal - Neck Neck: Present: normal ROM - Respiratory Respiratory: bilateral: CTA - Cardiovascular Rhythm: regular - Gastrointestinal General gastrointestinal: Present: soft - Integumentary Integumentary: Present: normal - Neurologic Neurologic: Present: CNII-XII intact - Musculoskeletal Musculoskeletal: Present: generalized weakness - Psychiatric Psychiatric: Present: A&O x's 3, appropriate affect, intact judgment & insight - Labs CBC & Chem 7: 12/05/17 08:08 12/05/17 08:08 Labs: Abnormal Lab Results - Last 24 Hours (Table) 12/04/17 12/04/17 12/04/17 Range/Units 14:15 16:58 20:09 WBC (3.8-10.6) k/uL Hgb (11.4-16.0) gm/dL Hct (34.0-46.0) % MCV (80.0-100.0) fL RDW (11.5-15.5) % Neutrophils # (Manual) (1.3-7.7) k/uL Monocytes # (Manual) (0-1.0) k/uL Metamyelocytes # (Man) (0) k/uL Myelocytes # (Manual) (0) k/uL Promyelocytes # (Man) (0) k/uL Potassium 3.0 L 3.3 L (3.5-5.1) mmol/L Chloride (98-107) mmol/L Glucose (74-99) mg/dL POC Glucose (mg/dL) 363 H (75-99) mg/dL Calcium (8.4-10.2) mg/dL Phosphorus (2.5-4.5) mg/dL 12/04/17 12/05/17 12/05/17 Range/Units 20:11 07:03 08:08 WBC 37.1 H (3.8-10.6) k/uL Hgb 9.8 L D (11.4-16.0) gm/dL Hct 30.3 L (34.0-46.0) % MCV 78.0 L (80.0-100.0) fL RDW 18.2 H (11.5-15.5) % Neutrophils # (Manual) 29.30 H (1.3-7.7) k/uL Monocytes # (Manual) 2.23 H (0-1.0) k/uL Metamyelocytes # (Man) 2.23 H (0) k/uL Myelocytes # (Manual) 1.48 H (0) k/uL Promyelocytes # (Man) 0.37 H (0) k/uL Potassium (3.5-5.1) mmol/L Chloride (98-107) mmol/L Glucose (74-99) mg/dL POC Glucose (mg/dL) 384 H 346 H (75-99) mg/dL Calcium (8.4-10.2) mg/dL Phosphorus (2.5-4.5) mg/dL 12/05/17 12/05/17 Range/Units 08:08 11:19 WBC (3.8-10.6) k/uL Hgb (11.4-16.0) gm/dL Hct (34.0-46.0) % MCV (80.0-100.0) fL RDW (11.5-15.5) % Neutrophils # (Manual) (1.3-7.7) k/uL Monocytes # (Manual) (0-1.0) k/uL Metamyelocytes # (Man) (0) k/uL Myelocytes # (Manual) (0) k/uL Promyelocytes # (Man) (0) k/uL Potassium (3.5-5.1) mmol/L Chloride 109 H (98-107) mmol/L Glucose 338 H (74-99) mg/dL POC Glucose (mg/dL) 312 H (75-99) mg/dL Calcium 7.5 L (8.4-10.2) mg/dL Phosphorus 1.6 L (2.5-4.5) mg/dL Microbiology - Last 24 Hours (Table) 11/30/17 12:56 Blood Culture - Preliminary Blood No Growth after 96 hours Assessment and Plan Plan: Assessment Acute nephrotic sepsis as well is severe septic shock and hypotension Stage IV non-Hodgkin's lymphoma Obstructive uropathy Anemia Leukopenia secondary to chemotherapy Hypokalemia Hyponatremia Chronic kidney disease stage III Diabetes type 2 History of congestive heart failure acute on chronic diastolic Sleep apnea Plan Hopeful discharge soon Continue consultation with Dr. Samia Rayo and Dr. Aponte
--- NOTE | 2017-12-05 14:52 | P.PN ---
Subjective Progress Note Date: 12/05/17 Principal diagnosis: NHL s/p 1 cycle of R-CEOP Pt seen in f/u, she is feeling much better today, more comfortable, she did work with PT and feels safer with her wheeled walker. No fevers, drinking adequate fluids, appetite is returning, no nausea, diarrhea, lower extremity swelling is better. Objective - Vital Signs Vital signs: Vital Signs Temp 92.8 F L 12/05/17 11:56 Pulse 54 L 12/05/17 11:56 Resp 17 12/05/17 11:56 BP 138/75 12/05/17 11:56 Pulse Ox 96 12/05/17 11:56 Intake & Output 12/04/17 12/05/17 12/05/17 18:59 06:59 18:59 Intake Total 940 Balance 940 Weight 74.7 kg 77 kg Intake: IV 100 metroNIDAZOLE-NS PMX 500 100 mg In Saline 1 100ml.bag @ 100 mls/hr IVPB Q8HR [facility] Rx#:[id number] Intake, IV Titration 250 Amount Cefepime 2 gm In Sodium 50 Chloride 0.9% 50 ml @ 100 mls/hr IVPB Q12H [facility] Rx# :[id number] Potassium Chloride 20 meq 200 In Water For Injection 1 100ml.bag @ 50 mls/hr IVPB Q2H [facility] Rx#: [id number] Oral 590 Other: Voiding Method Toilet Toilet # Voids 3 3 - Constitutional General appearance: Present: average body habitus, cooperative, no acute distress - EENT Eyes: Present: anicteric sclerae - Respiratory Respiratory: bilateral: CTA - Cardiovascular Heart sounds: normal: S1, S2 - Gastrointestinal General gastrointestinal: Present: normal bowel sounds, soft - Integumentary Integumentary: Present: normal - Neurologic Neurologic: Present: CNII-XII intact - Musculoskeletal Musculoskeletal: Present: generalized weakness, strength equal bilaterally - Psychiatric Psychiatric: Present: A&O x's 3, appropriate affect, intact judgment & insight - Labs CBC & Chem 7: 12/05/17 08:08 12/05/17 08:08 Labs: Abnormal Lab Results - Last 24 Hours (Table) 12/04/17 12/04/17 12/04/17 Range/Units 16:58 20:09 20:11 WBC (3.8-10.6) k/uL Hgb (11.4-16.0) gm/dL Hct (34.0-46.0) % MCV (80.0-100.0) fL RDW (11.5-15.5) % Neutrophils # (Manual) (1.3-7.7) k/uL Monocytes # (Manual) (0-1.0) k/uL Metamyelocytes # (Man) (0) k/uL Myelocytes # (Manual) (0) k/uL Promyelocytes # (Man) (0) k/uL Potassium 3.3 L (3.5-5.1) mmol/L Chloride (98-107) mmol/L Glucose (74-99) mg/dL POC Glucose (mg/dL) 363 H 384 H (75-99) mg/dL Calcium (8.4-10.2) mg/dL Phosphorus (2.5-4.5) mg/dL 12/05/17 12/05/17 12/05/17 Range/Units 07:03 08:08 08:08 WBC 37.1 H (3.8-10.6) k/uL Hgb 9.8 L D (11.4-16.0) gm/dL Hct 30.3 L (34.0-46.0) % MCV 78.0 L (80.0-100.0) fL RDW 18.2 H (11.5-15.5) % Neutrophils # (Manual) 29.30 H (1.3-7.7) k/uL Monocytes # (Manual) 2.23 H (0-1.0) k/uL Metamyelocytes # (Man) 2.23 H (0) k/uL Myelocytes # (Manual) 1.48 H (0) k/uL Promyelocytes # (Man) 0.37 H (0) k/uL Potassium (3.5-5.1) mmol/L Chloride 109 H (98-107) mmol/L Glucose 338 H (74-99) mg/dL POC Glucose (mg/dL) 346 H (75-99) mg/dL Calcium 7.5 L (8.4-10.2) mg/dL Phosphorus 1.6 L (2.5-4.5) mg/dL 12/05/17 Range/Units 11:19 WBC (3.8-10.6) k/uL Hgb (11.4-16.0) gm/dL Hct (34.0-46.0) % MCV (80.0-100.0) fL RDW (11.5-15.5) % Neutrophils # (Manual) (1.3-7.7) k/uL Monocytes # (Manual) (0-1.0) k/uL Metamyelocytes # (Man) (0) k/uL Myelocytes # (Manual) (0) k/uL Promyelocytes # (Man) (0) k/uL Potassium (3.5-5.1) mmol/L Chloride (98-107) mmol/L Glucose (74-99) mg/dL POC Glucose (mg/dL) 312 H (75-99) mg/dL Calcium (8.4-10.2) mg/dL Phosphorus (2.5-4.5) mg/dL Microbiology - Last 24 Hours (Table) 11/30/17 12:56 Blood Culture - Preliminary Blood No Growth after 96 hours Assessment and Plan (1) Antineoplastic chemotherapy induced anemia Narrative/Plan: Hgb stable, no transfusions needed today Current Visit: Yes Status: Acute Priority: Medium Code(s): D64.81 - ANEMIA DUE TO ANTINEOPLASTIC CHEMOTHERAPY; T45.1X5A - ADVERSE EFFECT OF ANTINEOPLASTIC AND IMMUNOSUP DRUGS, INIT SNOMED Code(s): 611029208 (2) Neutrophilic leukocytosis Narrative/Plan: Secondary to GCS-F, stable Current Visit: Yes Status: Acute Priority: Low Code(s): D72.9 - DISORDER OF WHITE BLOOD CELLS, UNSPECIFIED SNOMED Code(s): 865910153 (3) Unsteady gait Narrative/Plan: Pt did work with PT and feels safer useing her wheeled walker. She feels stronger today as well Current Visit: Yes Status: Acute Priority: High Code(s): R26.81 - UNSTEADINESS ON FEET SNOMED Code(s): 04617255 (4) Non Hodgkin's lymphoma Narrative/Plan: Pt is s/p 1stcycle of R-CEOP. Hematological toxicities moderate and have resolved rather quickly. She physically tolerated treatment fair. Reinforced with pt that the 1st treatment for lymphoma does tend to be harder then the subsequent because she was compromised coming into treatment. F/U appt in chart. Current Visit: No Status: Acute Priority: Medium Code(s): C85.90 - NON- HODGKIN LYMPHOMA, UNSPECIFIED, UNSPECIFIED SITE SNOMED Code(s): 708251540
[2017-12-05 16:43] LABS: Glucose,Whole Blood 367 mg/dL (75-99)
[2017-12-05] MEDS: metroNIDAZOLE 500 MG TAB PO SCH ×2 (17:11→20:27)
[2017-12-05 20:07] LABS: Glucose,Whole Blood 396 mg/dL (75-99)
[2017-12-05] MEDS: LORATADINE 10 MG TAB PO SCH (20:27)
[2017-12-06] MEDS: HYDROCORTISONE SUCCINATE 100 MG/2 ML VIAL IV SCH ×3 (00:52→16:01)
[2017-12-06] MEDS: VANCOMYCIN 1,250 MG in SODIUM CHLORIDE 0.9% 250 ML IVPB SCH ×2 (00:52→21:47)
[2017-12-06] MEDS: CEFEPIME 2 GM in SODIUM CHLORIDE 0.9% 50 ML IVPB SCH ×3 (05:24→21:47)
[2017-12-06 07:16] LABS: Glucose,Whole Blood 388 mg/dL (75-99)
[2017-12-06] MEDS: INSULIN ASPART 100 UNIT/ML 1 ML 10 ML VIAL SQ SCH ×4 (08:39→21:57)
[2017-12-06] MEDS: metroNIDAZOLE 500 MG TAB PO SCH ×3 (08:40→21:59)
[2017-12-06] MEDS: FUROSEMIDE 20 MG TAB PO SCH ×2 (08:41→21:59)
[2017-12-06] MEDS: CITALOPRAM HYDROBROMIDE 20 MG TAB PO SCH (08:41)
[2017-12-06] MEDS: GABAPENTIN 100 MG CAP PO SCH ×2 (08:41→21:59)
[2017-12-06] MEDS: POTASSIUM CHLORIDE ER 10 MEQ TAB.ER.PRT PO SCH (08:41)
[2017-12-06 11:04] LABS: Anion Gap 8 mmol/L; Blood Urea Nitrogen 12 mg/dL (7-17); Calcium 7.4 mg/dL (8.4-10.2); Carbon Dioxide 26 mmol/L (22-30); Chloride 106 mmol/L (98-107); Glucose 366 mg/dL (74-99); Sodium 140 mmol/L (137-145)
[2017-12-06 11:20] LABS: Glucose,Whole Blood 298 mg/dL (75-99)
[2017-12-06 11:22] LABS: Potassium 2.7 mmol/L (3.5-5.1)
--- NOTE | 2017-12-06 12:03 | P.DS ---
Providers Date of admission: 11/30/17 16:54 Attending physician: Leonard Solano Consults: 11/30/17 16:54 Consult Physician Urgent Consulting Provider: Toi Rayo Consult Reason/Comments: Critical care management Do you want consulting provider notified?: Yes Consult Physician Urgent Consulting Provider: Wicho Gracia Consult Reason/Comments: History of lymphoma Do you want consulting provider notified?: Yes 11/30/17 17:01 Consult Physician Urgent Consulting Provider: Jigar Huerta Consult Reason/Comments: kidney stone Do you want consulting provider notified?: Already Contacted 12/01/17 18:16 Consult Physician Routine Consulting Provider: Jose Aponte Consult Reason/Comments: sepsis Do you want consulting provider notified?: Yes Primary care physician: Leonard Solano Hospital Course: 67-year-old female was admitted through the emergency room with neutropenic sepsis as well as hypotension and shock patient was stabilized patient has had consultation with Dr. Samia Aponte. Patient had one course of her chemotherapy for non-Hodgkin's lymphoma. Plan is to follow-up with Dr. Gracia and family physician Dr. Leonard Solano Assessment Acute neutropenic sepsis as well as severe septic shock and hypotension Stage IV non-Hodgkin's lymphoma on chemotherapy obstructive uropathy Anemia leukopenia secondary to chemotherapy Hypokalemia Hyponatremia Chronic skin kidney disease stage III Diabetes type 2 History of congestive heart failure chronic diastolic History of hypertension Hyperlipidemia Sleep apnea Plan Follow-up with Dr. Gracia and -family physician Dr Leonard Solano. Plan - Discharge Summary Discharge Rx Participant: No New Discharge Prescriptions: No Action Potassium Chloride [Klor-Con 10] 10 meq PO DAILY Gabapentin 100 mg PO QAM Furosemide 20 mg PO BID Gabapentin [Neurontin] 200 mg PO HS Levothyroxine Sodium [Synthroid] 125 mcg PO MOTUWETHFRSA metFORMIN HCL 1,000 mg PO BID PRN PRN Reason: high blood sugars Cetirizine HCl [Zyrtec] 10 mg PO HS Multivitamins, Thera [Multivitamin (formulary)] 1 tab PO DAILY Glimepiride [Amaryl] 2 mg PO DAILY PRN PRN Reason: high blood sugar Atorvastatin Calcium [Lipitor] 40 mg PO HS ALPRAZolam [Xanax] 0.5 - 1 mg PO DAILY PRN PRN Reason: Anxiety Citalopram Hydrobromide [CeleXA] 20 mg PO DAILY predniSONE 100 mg PO DIRECTED Ondansetron HCl [Zofran] 8 mg PO Q6H PRN PRN Reason: Nausea Super B Complex 1 tab PO DAILY Pantoprazole [Protonix] 40 mg PO DAILY Discharge Medication List Furosemide 20 mg PO BID 09/19/13 [History] Gabapentin 100 mg PO QAM 09/19/13 [History] Potassium Chloride [Klor-Con 10] 10 meq PO DAILY 09/19/13 [History] Gabapentin [Neurontin] 200 mg PO HS 12/05/14 [History] Levothyroxine Sodium [Synthroid] 125 mcg PO MOTUWETHFRSA 12/05/14 [History] metFORMIN HCL 1,000 mg PO BID PRN 12/05/14 [History] Cetirizine HCl [Zyrtec] 10 mg PO HS 05/24/17 [History] Glimepiride [Amaryl] 2 mg PO DAILY PRN 05/24/17 [History] Multivitamins, Thera [Multivitamin (formulary)] 1 tab PO DAILY 05/24/17 [History ] ALPRAZolam [Xanax] 0.5 - 1 mg PO DAILY PRN 06/12/17 [History] Atorvastatin Calcium [Lipitor] 40 mg PO HS 06/12/17 [History] Citalopram Hydrobromide [CeleXA] 20 mg PO DAILY 10/22/17 [History] Ondansetron HCl [Zofran] 8 mg PO Q6H PRN 11/30/17 [History] Pantoprazole [Protonix] 40 mg PO DAILY 11/30/17 [History] Super B Complex 1 tab PO DAILY 11/30/17 [History] predniSONE 100 mg PO DIRECTED 11/30/17 [History] Follow up Appointment(s)/Referral(s): Leonard Solano MD [Primary Care Provider] - 1-2 days Wicho Gracia MD [STAFF PHYSICIAN] - 12/11/17 10:00 am [facility], [NON-STAFF] -
[2017-12-06] MEDS: POTASSIUM CHLORIDE 20 MEQ in WATER FOR INJECTION 1 100ML.BAG IVPB SCH ×3 (12:47→18:21)
[2017-12-06] MEDS: MULTIVITAMINS, THERA 1 EACH TAB PO SCH (14:21)
--- NOTE | 2017-12-06 14:56 | P.PN ---
Subjective Progress Note Date: 12/06/17 Principal diagnosis: NHL s/p 1 cycle of R-CEOP Pt seen in f/u, she is doing very well, eating, drinking, no fever, cough, nausea, dysuria, diarrhea, constipation or pain. She is ambulating in the hallway. Objective - Vital Signs Vital signs: Vital Signs Temp 97.8 F 12/06/17 11:59 Pulse 55 L 12/06/17 11:59 Resp 18 12/06/17 11:59 BP 131/84 12/06/17 11:59 Pulse Ox 98 12/06/17 11:59 Intake & Output 12/05/17 12/06/17 12/06/17 18:59 06:59 18:59 Intake Total 50 1555 Balance 50 1555 Weight 76.5 kg Intake: IV 545 0.9 545 Intake, IV Titration 50 Amount Cefepime 2 gm In Sodium 50 Chloride 0.9% 50 ml @ 100 mls/hr IVPB Q8H [facility] Rx#: [id number] Oral 1010 Other: Voiding Method Toilet Toilet # Voids 3 - Constitutional General appearance: Present: average body habitus, cooperative, no acute distress - EENT Eyes: Present: anicteric sclerae - Respiratory Details: even and unlabored, no dyspnea on exertion - Neurologic Neurologic: Present: CNII-XII intact - Musculoskeletal Musculoskeletal Comment(s): Using wheeled walker to ambulate - Psychiatric Psychiatric: Present: A&O x's 3, appropriate affect, intact judgment & insight - Labs CBC & Chem 7: 12/05/17 08:08 12/06/17 09:22 Labs: Abnormal Lab Results - Last 24 Hours (Table) 12/04/17 12/05/17 12/05/17 Range/Units 05:00 16:41 20:06 Potassium (3.5-5.1) mmol/L Glucose (74-99) mg/dL POC Glucose (mg/dL) 367 H 396 H (75-99) mg/dL Calcium (8.4-10.2) mg/dL IgM <16.9 L (40.0-280.0) mg/dL 12/06/17 12/06/17 12/06/17 Range/Units 07:15 09:22 11:14 Potassium 2.7 L* (3.5-5.1) mmol/L Glucose 366 H (74-99) mg/dL POC Glucose (mg/dL) 388 H 298 H (75-99) mg/dL Calcium 7.4 L (8.4-10.2) mg/dL IgM (40.0-280.0) mg/dL Microbiology - Last 24 Hours (Table) 11/30/17 12:56 Blood Culture - Preliminary Blood No Growth after 120 hours Assessment and Plan (1) Antineoplastic chemotherapy induced anemia Current Visit: Yes Status: Acute Priority: Medium Code(s): D64.81 - ANEMIA DUE TO ANTINEOPLASTIC CHEMOTHERAPY; T45.1X5A - ADVERSE EFFECT OF ANTINEOPLASTIC AND IMMUNOSUP DRUGS, INIT SNOMED Code(s): 078733632 (2) Neutrophilic leukocytosis Current Visit: Yes Status: Acute Priority: Low Code(s): D72.9 - DISORDER OF WHITE BLOOD CELLS, UNSPECIFIED SNOMED Code(s): 364029336 (3) Unsteady gait Narrative/Plan: Ambulating with wheeled walker in halls, PT/OT cont working with pt while hospitalized Current Visit: Yes Status: Acute Priority: High Code(s): R26.81 - UNSTEADINESS ON FEET SNOMED Code(s): 78512435 (4) Non Hodgkin's lymphoma Narrative/Plan: Pt will see Dr. Gracia prior to next cycle for CBC evaluation and possibly dose adjustment due to pt poor physical tolerance of treatment Current Visit: No Status: Acute Priority: Medium Code(s): C85.90 - NON- HODGKIN LYMPHOMA, UNSPECIFIED, UNSPECIFIED SITE SNOMED Code(s): 663438968
[2017-12-06 16:48] LABS: Glucose,Whole Blood 443 mg/dL (75-99)
[2017-12-06 21:07] LABS: Glucose,Whole Blood 470 mg/dL (75-99)
[2017-12-06] MEDS: LORATADINE 10 MG TAB PO SCH (21:59)
[2017-12-07] MEDS: HYDROCORTISONE SUCCINATE 100 MG/2 ML VIAL IV SCH ×4 (00:26→23:37)
[2017-12-07 04:21] LABS: Glucose,Whole Blood 357 mg/dL (75-99)
[2017-12-07] MEDS ORDERED: INSULIN ASPART 100 UNIT/ML 1 ML 10 ML VIAL SQ ONE ×3 (04:30→04:40)
[2017-12-07] MEDS: CEFEPIME 2 GM in SODIUM CHLORIDE 0.9% 50 ML IVPB SCH ×3 (04:42→22:26)
[2017-12-07 07:27] LABS: Glucose,Whole Blood 362 mg/dL (75-99)
[2017-12-07] MEDS: POTASSIUM CHLORIDE ER 20 MEQ TAB.ER PO SCH ×4 (07:49→18:06)
[2017-12-07] MEDS: INSULIN ASPART 100 UNIT/ML 1 ML 10 ML VIAL SQ SCH ×3 (07:50→18:10)
[2017-12-07] MEDS: GABAPENTIN 100 MG CAP PO SCH ×2 (07:53→22:29)
[2017-12-07] MEDS: POTASSIUM CHLORIDE ER 10 MEQ TAB.ER.PRT PO SCH (07:53)
[2017-12-07] MEDS: FUROSEMIDE 20 MG TAB PO SCH ×2 (07:53→22:30)
[2017-12-07] MEDS: metroNIDAZOLE 500 MG TAB PO SCH ×3 (07:54→22:30)
[2017-12-07] MEDS: CITALOPRAM HYDROBROMIDE 20 MG TAB PO SCH (07:54)
--- NOTE | 2017-12-07 10:42 | P.PN ---
Subjective Progress Note Date: 12/07/17 Principal diagnosis: NHL s/p 1 cycle of R-CEOP Pt seen in f/u, feels good, eating, drinking, no fever, cough, nausea, dysuria, diarrhea, constipation or pain, ambulating and waiting for a ride home. Objective - Vital Signs Vital signs: Vital Signs Temp 98 F 12/07/17 07:15 Pulse 55 L 12/07/17 08:00 Resp 18 12/07/17 07:15 BP 149/71 12/07/17 07:15 Pulse Ox 99 12/07/17 07:15 Intake & Output 12/06/17 12/07/17 12/07/17 18:59 06:59 18:59 Intake Total 2480 Balance 2480 Weight 75.5 kg Intake: IV 800 0.9 800 Oral 1680 Other: Voiding Method Toilet Toilet # Voids 2 3 - Exam WDWN, NAD, moves independently, respiratory effort is unlabored, no swelling in the legs - Constitutional General appearance: Present: average body habitus, cooperative, no acute distress - EENT Eyes: Present: anicteric sclerae - Labs CBC & Chem 7: 12/05/17 08:08 12/06/17 22:06 Labs: Abnormal Lab Results - Last 24 Hours (Table) 12/04/17 12/06/17 12/06/17 Range/Units 05:00 09:22 11:14 Potassium 2.7 L* (3.5-5.1) mmol/L Glucose 366 H (74-99) mg/dL POC Glucose (mg/dL) 298 H (75-99) mg/dL Calcium 7.4 L (8.4-10.2) mg/dL IgM <16.9 L (40.0-280.0) mg/dL 12/06/17 12/06/17 12/06/17 Range/Units 16:47 21:06 22:06 Potassium 3.4 L (3.5-5.1) mmol/L Glucose (74-99) mg/dL POC Glucose (mg/dL) 443 H 470 H (75-99) mg/dL Calcium (8.4-10.2) mg/dL IgM (40.0-280.0) mg/dL 12/07/17 12/07/17 Range/Units 04:19 07:24 Potassium (3.5-5.1) mmol/L Glucose (74-99) mg/dL POC Glucose (mg/dL) 357 H 362 H (75-99) mg/dL Calcium (8.4-10.2) mg/dL IgM (40.0-280.0) mg/dL Microbiology - Last 24 Hours (Table) 11/30/17 12:56 Blood Culture - Final Blood No Growth after 144 hours Assessment and Plan (1) Antineoplastic chemotherapy induced anemia Narrative/Plan: Hgb did not require transfusion while inpatient. Current Visit: Yes Status: Acute Priority: Medium Code(s): D64.81 - ANEMIA DUE TO ANTINEOPLASTIC CHEMOTHERAPY; T45.1X5A - ADVERSE EFFECT OF ANTINEOPLASTIC AND IMMUNOSUP DRUGS, INIT SNOMED Code(s): 606461597 (2) Neutrophilic leukocytosis Narrative/Plan: Secondary to GCSF Current Visit: Yes Status: Acute Priority: Low Code(s): D72.9 - DISORDER OF WHITE BLOOD CELLS, UNSPECIFIED SNOMED Code(s): 811753833 (3) Unsteady gait Narrative/Plan: Pt did very well with PT/OT, ambulating with wheeled walker Current Visit: Yes Status: Acute Priority: High Code(s): R26.81 - UNSTEADINESS ON FEET SNOMED Code(s): 11867083 (4) Non Hodgkin's lymphoma Narrative/Plan: Pt treatment will be delayed [address] Gracia. Plan is for dose adjustment. Updated f/u appt in the DC summary Current Visit: No Status: Acute Priority: Medium Code(s): C85.90 - NON- HODGKIN LYMPHOMA, UNSPECIFIED, UNSPECIFIED SITE SNOMED Code(s): 542831140
[2017-12-07] MEDS ORDERED: VANCOMYCIN TROUGH DUE 1 EACH MISC MISCELLANE ONE (11:00)
[2017-12-07 11:15] LABS: Glucose,Whole Blood 267 mg/dL (75-99)
[2017-12-07] MEDS: MULTIVITAMINS, THERA 1 EACH TAB PO SCH (12:28)
[2017-12-07 12:31] LABS: Anion Gap 7 mmol/L; Blood Urea Nitrogen 11 mg/dL (7-17); Calcium 7.8 mg/dL (8.4-10.2); Carbon Dioxide 30 mmol/L (22-30); Chloride 104 mmol/L (98-107); Glucose 224 mg/dL (74-99); Potassium 2.9 mmol/L (3.5-5.1); Sodium 141 mmol/L (137-145)
--- NOTE | 2017-12-07 13:31 | P.PN ---
Progress Note - Text Progress Note Date: 12/07/17 Mrs. Leedzma is comfortable, and specifically she denies any flank pain. She was advised that the computed tomography scan showed a calculus just distal to the ureteropelvic junction on the left, measuring only approximately 2 mm in size. She should not have difficulty passing this calculus, but she was advised to contact me if she becomes symptomatic.
[2017-12-07] MEDS: VANCOMYCIN 1,250 MG in SODIUM CHLORIDE 0.9% 250 ML IVPB SCH (15:51)
[2017-12-07 17:22] LABS: Glucose,Whole Blood 491 mg/dL (75-99)
[2017-12-07] MEDS: MAGNESIUM SULFATE-D5W PMX 1 GM in DEXTROSE/WATER 1 100ML.BAG IVPB SCH ×2 (18:06→19:14)
[2017-12-07 19:47] LABS: Glucose,Whole Blood 578 mg/dL (75-99)
[2017-12-07 20:30] LABS: Glucose,Whole Blood 581 mg/dL (75-99)
[2017-12-07] MEDS: INSULIN REGULAR 100 UNIT in SODIUM CHLORIDE 0.9% 100 ML IV SCH (22:19)
[2017-12-07 22:23] LABS: Glucose,Whole Blood 474 mg/dL (75-99)
[2017-12-07] MEDS: LORATADINE 10 MG TAB PO SCH (22:30)
[2017-12-07 23:02] LABS: Glucose,Whole Blood 399 mg/dL (75-99)
[2017-12-07 23:23] LABS: Magnesium 1.8 mg/dL (1.6-2.3)
[2017-12-07] MEDS ORDERED: Potassium Replacement Protocol 1 EACH MISC MISCELLANE PRN (23:45)
[2017-12-07 23:48] LABS: Glucose,Whole Blood 365 mg/dL (75-99)
[2017-12-08 00:01] LABS: Glucose,Whole Blood 320 mg/dL (75-99)
[2017-12-08] MEDS: POTASSIUM CHLORIDE ER 20 MEQ TAB.ER PO SCH ×4 (00:42→12:35)
[2017-12-08 00:51] LABS: Glucose,Whole Blood 266 mg/dL (75-99)
[2017-12-08 01:08] LABS: Glucose,Whole Blood 263 mg/dL (75-99)
[2017-12-08 01:49] LABS: Glucose,Whole Blood 256 mg/dL (75-99)
[2017-12-08 02:21] LABS: Glucose,Whole Blood 226 mg/dL (75-99)
[2017-12-08 04:16] LABS: Glucose,Whole Blood 170 mg/dL (75-99)
[2017-12-08] MEDS: CEFEPIME 2 GM in SODIUM CHLORIDE 0.9% 50 ML IVPB SCH ×3 (04:22→21:59)
[2017-12-08] MEDS: VANCOMYCIN 1,250 MG in SODIUM CHLORIDE 0.9% 250 ML IVPB SCH (05:54)
[2017-12-08 06:24] LABS: Glucose,Whole Blood 288 mg/dL (75-99)
[2017-12-08] MEDS: INSULIN REGULAR 100 UNIT in SODIUM CHLORIDE 0.9% 100 ML IV SCH (06:47)
[2017-12-08] MEDS ORDERED: INSULIN ASPART 100 UNIT/ML 1 ML 10 ML VIAL SQ SCH (07:30)
[2017-12-08 08:03] LABS: Glucose,Whole Blood 332 mg/dL (75-99)
[2017-12-08] MEDS: HYDROCORTISONE SUCCINATE 100 MG/2 ML VIAL IV SCH ×2 (08:14→17:19)
[2017-12-08] MEDS: metroNIDAZOLE 500 MG TAB PO SCH ×3 (08:14→22:00)
[2017-12-08] MEDS: GABAPENTIN 100 MG CAP PO SCH ×2 (08:14→22:00)
[2017-12-08] MEDS: FUROSEMIDE 20 MG TAB PO SCH ×2 (08:15→21:59)
[2017-12-08] MEDS: POTASSIUM CHLORIDE ER 10 MEQ TAB.ER.PRT PO SCH (08:15)
[2017-12-08] MEDS: CITALOPRAM HYDROBROMIDE 20 MG TAB PO SCH (08:15)
[2017-12-08] MEDS ORDERED: GLIMEPIRIDE 2 MG TAB PO PRN (09:52)
[2017-12-08 09:58] LABS: Calcium 7.9 mg/dL (8.4-10.2); Potassium 3.3 mmol/L (3.5-5.1)
[2017-12-08 10:25] LABS: Glucose,Whole Blood 277 mg/dL (75-99)
[2017-12-08] MEDS: GLIMEPIRIDE 2 MG TAB PO SCH (10:30)
[2017-12-08] MEDS: PANTOPRAZOLE 40 MG TABLET PO SCH (10:43)
[2017-12-08] MEDS: LEVOTHYROXINE 125 MCG TAB PO SCH (10:43)
[2017-12-08 11:24] LABS: Glucose,Whole Blood 179 mg/dL (75-99)
[2017-12-08 11:59] VITALS: BMI 30.6
[2017-12-08 12:11] LABS: Glucose,Whole Blood 188 mg/dL (75-99)
[2017-12-08] MEDS: MULTIVITAMINS, THERA 1 EACH TAB PO SCH (12:12)
[2017-12-08] MEDS: INSULIN DETEMIR 100 UNIT/ML 10 ML VIAL SQ SCH (12:32)
[2017-12-08] MEDS: INSULIN ASPART 100 UNIT/ML 1 ML 10 ML VIAL SQ SCH ×2 (12:36→18:19)
[2017-12-08 14:32] LABS: Glucose,Whole Blood 299 mg/dL (75-99)
--- NOTE | 2017-12-08 15:53 | P.PN ---
Subjective Progress Note Date: 12/08/17 Principal diagnosis: NHL Patient seen and examined, she is sitting up at end of bed and would like to go home. She has no acute or new complaints, overall feeling well. Objective - Vital Signs Vital signs: Vital Signs Temp 98.2 F 12/08/17 12:24 Pulse 62 12/08/17 12:24 Resp 16 12/08/17 12:24 BP 164/83 12/08/17 12:24 Pulse Ox 96 12/08/17 12:24 Intake & Output 12/07/17 12/08/17 12/08/17 18:59 06:59 18:59 Intake Total 241.788 5965.055 Balance 837.278 6913.055 Weight 76 kg 76 kg Intake: Intake, IV Titration 296.960 343.055 Amount Cefepime 2 gm In Sodium 100 50 Chloride 0.9% 50 ml @ 100 mls/hr IVPB Q8H [facility] Rx#: [id number] Insulin Regular 100 unit 96.960 43.055 In Sodium Chloride 0.9% 100 ml @ Titrate IV .Q0M [facility] Rx#:[id number] Magnesium Sulfate-D5w Pmx 100 1 gm In Dextrose/Water 1 100ml.bag @ 100 mls/hr IVPB Q1H [facility] Rx#: [id number] Vancomycin 1,250 mg In 250 Sodium Chloride 0.9% 250 ml @ 125 mls/hr IVPB Q18H [facility] Rx#:[id number] Oral 1150 Other: Voiding Method Toilet Toilet Toilet # Voids 2 3 - Exam Constitutional General appearance: Present: average body habitus, cooperative, no acute distress - EENT Eyes: Present: EOMI - Respiratory Respiratory: bilateral: CTA - Cardiovascular Heart sounds: normal: S1, S2 - Peripheral edema leg Peripheral Edema: bilateral: 1+, Pitting - Gastrointestinal General gastrointestinal: Present: normal bowel sounds, soft - Integumentary Integumentary: Present: pale - Neurologic Neurologic: Present: CNII-XII intact - Musculoskeletal Musculoskeletal: Present: generalized weakness, strength equal bilaterally - Psychiatric Psychiatric: Present: A&O x's 3, appropriate affect, intact judgment & insight - Labs CBC & Chem 7: 12/05/17 08:08 12/08/17 07:47 Labs: Abnormal Lab Results - Last 24 Hours (Table) 12/07/17 12/07/17 12/07/17 Range/Units 11:01 17:21 19:44 Potassium (3.5-5.1) mmol/L Chloride (98-107) mmol/L BUN (7-17) mg/dL Glucose (74-99) mg/dL POC Glucose (mg/dL) 491 H 578 H (75-99) mg/dL Calcium (8.4-10.2) mg/dL Magnesium 1.3 L (1.6-2.3) mg/dL 12/07/17 12/07/17 12/07/17 Range/Units 20:18 22:20 22:48 Potassium 3.0 L (3.5-5.1) mmol/L Chloride (98-107) mmol/L BUN (7-17) mg/dL Glucose (74-99) mg/dL POC Glucose (mg/dL) 581 H 474 H (75-99) mg/dL Calcium (8.4-10.2) mg/dL Magnesium (1.6-2.3) mg/dL 12/07/17 12/07/17 12/08/17 Range/Units 23:00 23:34 00:00 Potassium (3.5-5.1) mmol/L Chloride (98-107) mmol/L BUN (7-17) mg/dL Glucose (74-99) mg/dL POC Glucose (mg/dL) 399 H 365 H 320 H (75-99) mg/dL Calcium (8.4-10.2) mg/dL Magnesium (1.6-2.3) mg/dL 12/08/17 12/08/17 12/08/17 Range/Units 00:39 01:01 01:37 Potassium (3.5-5.1) mmol/L Chloride (98-107) mmol/L BUN (7-17) mg/dL Glucose (74-99) mg/dL POC Glucose (mg/dL) 266 H 263 H 256 H (75-99) mg/dL Calcium (8.4-10.2) mg/dL Magnesium (1.6-2.3) mg/dL 12/08/17 12/08/17 12/08/17 Range/Units 02:18 04:15 05:57 Potassium (3.5-5.1) mmol/L Chloride (98-107) mmol/L BUN (7-17) mg/dL Glucose (74-99) mg/dL POC Glucose (mg/dL) 226 H 170 H 288 H (75-99) mg/dL Calcium (8.4-10.2) mg/dL Magnesium (1.6-2.3) mg/dL 12/08/17 12/08/17 12/08/17 Range/Units 07:47 08:01 10:12 Potassium 3.3 L (3.5-5.1) mmol/L Chloride 109 H (98-107) mmol/L BUN 18 H (7-17) mg/dL Glucose 293 H (74-99) mg/dL POC Glucose (mg/dL) 332 H 277 H (75-99) mg/dL Calcium 7.9 L (8.4-10.2) mg/dL Magnesium (1.6-2.3) mg/dL 12/08/17 12/08/17 12/08/17 Range/Units 11:19 12:09 14:19 Potassium (3.5-5.1) mmol/L Chloride (98-107) mmol/L BUN (7-17) mg/dL Glucose (74-99) mg/dL POC Glucose (mg/dL) 179 H 188 H 299 H (75-99) mg/dL Calcium (8.4-10.2) mg/dL Magnesium (1.6-2.3) mg/dL Assessment and Plan Plan: Assessment and Plan (1) Antineoplastic chemotherapy induced anemia Narrative/Plan: Hgb did not require transfusion while inpatient. - She will be seen in office next week therefore we will recheck hemoglobin Current Visit: Yes Status: Acute Priority: Medium Code(s): D64.81 - ANEMIA DUE TO ANTINEOPLASTIC CHEMOTHERAPY; T45.1X5A - ADVERSE EFFECT OF ANTINEOPLASTIC AND IMMUNOSUP DRUGS, INIT SNOMED Code(s): 943257421 (2) Neutrophilic leukocytosis Narrative/Plan: Secondary to GCSF - Will continue to monitor CBC as outpatient Current Visit: Yes Status: Acute Priority: Low Code(s): D72.9 - DISORDER OF WHITE BLOOD CELLS, UNSPECIFIED SNOMED Code(s): 973258898 (3) Unsteady gait Narrative/Plan: Pt did very well with PT/OT, ambulating with wheeled walker She is able to transport self safely from bed to chair and chair to standing Current Visit: Yes Status: Acute Priority: High Code(s): R26.81 - UNSTEADINESS ON FEET SNOMED Code(s): 12835974 (4) Non Hodgkin's lymphoma Narrative/Plan: Pt treatment will be delayed [address] Gracia. Plan is for dose adjustment. Updated f/u appt in the DC summary Current Visit: No Status: Acute Priority: Medium Code(s): C85.90 - NON- HODGKIN LYMPHOMA, UNSPECIFIED, UNSPECIFIED SITE SNOMED Code(s): 954949453 ok for discharge from Oncology standpoint
[2017-12-08 16:19] LABS: Glucose,Whole Blood 391 mg/dL (75-99)
[2017-12-08] MEDS ORDERED: INSULIN ASPART 100 UNIT/ML 1 ML 10 ML VIAL SQ ONE ×2 (17:32→21:58)
[2017-12-08 17:40] LABS: Glucose,Whole Blood 466 mg/dL (75-99)
[2017-12-08 20:02] LABS: Glucose,Whole Blood 448 mg/dL (75-99)
[2017-12-08 20:03] LABS: Glucose,Whole Blood 476 mg/dL (75-99)
[2017-12-08] MEDS ORDERED: FUROSEMIDE 20 MG TAB PO SCH (21:00)
[2017-12-08] MEDS ORDERED: ATORVASTATIN 40 MG TAB PO SCH (21:00)
[2017-12-08 21:35] LABS: Glucose,Whole Blood 362 mg/dL (75-99)
[2017-12-08] MEDS: LORATADINE 10 MG TAB PO SCH (22:00)
[2017-12-08] MEDS ORDERED: INSULIN DETEMIR 100 UNIT/ML 10 ML VIAL SQ ONE (22:37)
[2017-12-08] MEDS: metFORMIN 500 MG TAB PO SCH (22:58)
--- NOTE | 2017-12-08 23:28 | P.PN ---
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 At the time of her admission she had evidence of neutropenia and fever and constantly was admitted for sepsis. She required fluid resuscitation as well as his pressor support originally. She is not having significant improvement in is feeling better. She is very pertinent recent history in that she was having some abdominal pain and underwent imaging studies that reveal evidence of extensive intra-abdominal lymphadenopathy. Workup eventually was performed revealing the evidence of B cell non-Hodgkin's lymphoma stage IV is noted by the bone marrow involvement. Due to her age and renal dysfunction she was treated with R-CEOP. She is now presenting with evidence of febrile neutropenia generalized malaise and feeling quite poorly overall. She does have some chronic cognitive delays. Also worsened when she was quite ill which are now improving as noted by her sister who is present. The patient at this time is feeling better. She has received growth factor support her white blood cell count is improved. Her fevers have improved. She is having no chills or rigors. She had having much discomfort at this time. No evidence of any bleeding is occurring. 12/04/2017 patient is doing somewhat better today. She is comfortable and certainly look forward to going home. She was having some difficulty with acidosis and bicarbonate was being given intravenously by infusion. With her edema this can be discontinued. She is already recovering from the toxicities of the first round of her chemotherapy. Feeling better today but has generalized weakness. 12/08/2017 patient has had some further improvement. She overs been having some metabolic abnormalities with hypokalemia. Her neutropenia has resolved. She's having no further fevers. She had significant hyperglycemia requiring insulin drip and arrangements are being made for her discharge to home soon. Objective - Vital Signs Vital signs: Vital Signs Temp 98.5 F 12/08/17 20:45 Pulse 53 L 12/08/17 20:45 Resp 16 12/08/17 20:45 BP 152/68 12/08/17 20:45 Pulse Ox 95 12/08/17 20:45 Intake & Output 12/08/17 12/08/17 12/09/17 06:59 18:59 06:59 Intake Total 215.258 7995.055 Balance 090.403 4047.055 Weight 76 kg 76 kg Intake: Intake, IV Titration 296.960 343.055 Amount Cefepime 2 gm In Sodium 100 50 Chloride 0.9% 50 ml @ 100 mls/hr IVPB Q8H [facility] Rx#: [id number] Insulin Regular 100 unit 96.960 43.055 In Sodium Chloride 0.9% 100 ml @ Titrate IV .Q0M [facility] Rx#:[id number] Magnesium Sulfate-D5w Pmx 100 1 gm In Dextrose/Water 1 100ml.bag @ 100 mls/hr IVPB Q1H [facility] Rx#: [id number] Vancomycin 1,250 mg In 250 Sodium Chloride 0.9% 250 ml @ 125 mls/hr IVPB Q18H [facility] Rx#:[id number] Oral 1150 Other: Voiding Method Toilet Toilet # Voids 2 - Exam Pleasant 67-year-old woman who is in no distress, vasopressor therapy has been weaned off HEENT: Anicteric conjunctiva are pink and moist nasal mucosa grossly intact without significant lesions, there is no thrush. Does have pallor. Neck: The neck is supple without significant lymphadenopathy or thyromegaly. Lungs: There are symmetrical air entry without significant crackles or wheezing. No dullness or egophony Heart: Regular rate and rhythm with an audible S1-S2, no S3 no S4. There is no significant murmur click or rub, PMI was nondisplaced. Abdomen: Positive bowel sounds soft and nontender without palpable masses or organomegaly. There was no guarding or rebound. Extremities: The upper extremities have excellent pulses they are symmetric, no significant petechiae or telangiectasia. No splinter hemorrhages were noted. The lower extremities have developed bilateral lower extremity edema that is symmetric without ulcerations. Neuro: Awake alert oriented to person place and time. There are no acute new gross focal sensory motor deficits. Does have a history of head trauma with some memory deficits. - Labs CBC & Chem 7: 12/05/17 08:08 12/08/17 07:47 Labs: Abnormal Lab Results - Last 24 Hours (Table) 12/07/17 12/08/17 12/08/17 Range/Units 23:34 00:00 00:39 Potassium (3.5-5.1) mmol/L Chloride (98-107) mmol/L BUN (7-17) mg/dL Glucose (74-99) mg/dL POC Glucose (mg/dL) 365 H 320 H 266 H (75-99) mg/dL Calcium (8.4-10.2) mg/dL 12/08/17 12/08/17 12/08/17 Range/Units 01:01 01:37 02:18 Potassium (3.5-5.1) mmol/L Chloride (98-107) mmol/L BUN (7-17) mg/dL Glucose (74-99) mg/dL POC Glucose (mg/dL) 263 H 256 H 226 H (75-99) mg/dL Calcium (8.4-10.2) mg/dL 12/08/17 12/08/17 12/08/17 Range/Units 04:15 05:57 07:47 Potassium 3.3 L (3.5-5.1) mmol/L Chloride 109 H (98-107) mmol/L BUN 18 H (7-17) mg/dL Glucose 293 H (74-99) mg/dL POC Glucose (mg/dL) 170 H 288 H (75-99) mg/dL Calcium 7.9 L (8.4-10.2) mg/dL 12/08/17 12/08/17 12/08/17 Range/Units 08:01 10:12 11:19 Potassium (3.5-5.1) mmol/L Chloride (98-107) mmol/L BUN (7-17) mg/dL Glucose (74-99) mg/dL POC Glucose (mg/dL) 332 H 277 H 179 H (75-99) mg/dL Calcium (8.4-10.2) mg/dL 12/08/17 12/08/17 12/08/17 Range/Units 12:09 14:19 16:17 Potassium (3.5-5.1) mmol/L Chloride (98-107) mmol/L BUN (7-17) mg/dL Glucose (74-99) mg/dL POC Glucose (mg/dL) 188 H 299 H 391 H (75-99) mg/dL Calcium (8.4-10.2) mg/dL 12/08/17 12/08/17 12/08/17 Range/Units 17:28 20:00 20:02 Potassium (3.5-5.1) mmol/L Chloride (98-107) mmol/L BUN (7-17) mg/dL Glucose (74-99) mg/dL POC Glucose (mg/dL) 466 H 448 H 476 H (75-99) mg/dL Calcium (8.4-10.2) mg/dL 12/08/17 Range/Units 21:33 Potassium (3.5-5.1) mmol/L Chloride (98-107) mmol/L BUN (7-17) mg/dL Glucose (74-99) mg/dL POC Glucose (mg/dL) 362 H (75-99) mg/dL Calcium (8.4-10.2) mg/dL Laboratory Results WBC 37.1 k/uL (3.8-10.6) H 12/05/17 08:08 RBC 3.89 m/uL (3.80-5.40) 12/05/17 08:08 Hgb 9.8 gm/dL (11.4-16.0) L D 12/05/17 08:08 Hct 30.3 % (34.0-46.0) L 12/05/17 08:08 MCV 78.0 fL (80.0-100.0) L 12/05/17 08:08 MCH 25.1 pg (25.0-35.0) 12/05/17 08:08 MCHC 32.2 g/dL (31.0-37.0) 12/05/17 08:08 RDW 18.2 % (11.5-15.5) H 12/05/17 08:08 Plt Count 417 k/uL (150-450) 12/05/17 08:08 Neutrophils % 91 % 12/03/17 07:14 Neutrophils % (Manual) 73 % 12/05/17 08:08 Band Neutrophils % 6 % 12/05/17 08:08 Lymphocytes % 2 % 12/03/17 07:14 Lymphocytes % (Manual) 6 % 12/05/17 08:08 Monocytes % 4 % 12/03/17 07:14 Monocytes % (Manual) 6 % 12/05/17 08:08 Eosinophils % 0 % 12/03/17 07:14 Eosinophils % (Manual) 1 % 12/05/17 08:08 Basophils % 1 % 12/03/17 07:14 Metamyelocytes % 6 % 12/05/17 08:08 Myelocytes % 4 % 12/05/17 08:08 Promyelocytes % 1 % 12/05/17 08:08 Neutrophils # 24.0 k/uL (1.3-7.7) H 12/03/17 07:14 Neutrophils # (Manual) 29.30 k/uL (1.3-7.7) H 12/05/17 08:08 Lymphocytes # 0.5 k/uL (1.0-4.8) L 12/03/17 07:14 Lymphocytes # (Manual) 2.23 k/uL (1.0-4.8) 12/05/17 08:08 Monocytes # 1.1 k/uL (0-1.0) H 12/03/17 07:14 Monocytes # (Manual) 2.23 k/uL (0-1.0) H 12/05/17 08:08 Eosinophils # 0.1 k/uL (0-0.7) 12/03/17 07:14 Eosinophils # (Manual) 0.37 k/uL (0-0.7) 12/05/17 08:08 Basophils # 0.3 k/uL (0-0.2) H 12/03/17 07:14 Metamyelocytes # (Man) 2.23 k/uL (0) H 12/05/17 08:08 Myelocytes # (Manual) 1.48 k/uL (0) H 12/05/17 08:08 Promyelocytes # (Man) 0.37 k/uL (0) H 12/05/17 08:08 Nucleated RBCs 0 /100 WBC (0-0) 12/05/17 08:08 Manual Slide Review Performed 12/05/17 08:08 Toxic Granulation Present 12/05/17 08:08 Dohle Bodies Present 12/01/17 05:04 Polychromasia Present 12/05/17 08:08 Hypochromasia Moderate 12/05/17 08:08 Poikilocytosis Slight 12/03/17 07:14 Poikilocytosis (manual Present 12/05/17 08:08 Anisocytosis Slight 12/05/17 08:08 Microcytosis Slight 12/05/17 08:08 Crenated Cell Present 12/01/17 05:04 PT 11.3 sec (9.0-12.0) 11/30/17 12:56 INR 1.2 (<1.2) H 11/30/17 12:56 APTT 25.0 sec (22.0-30.0) 11/30/17 12:56 Sodium 143 mmol/L (137-145) 12/08/17 07:47 Potassium 3.3 mmol/L (3.5-5.1) L 12/08/17 07:47 Chloride 109 mmol/L (98-107) H 12/08/17 07:47 Carbon Dioxide 26 mmol/L (22-30) 12/08/17 07:47 Anion Gap 8 mmol/L 12/08/17 07:47 BUN 18 mg/dL (7-17) H 12/08/17 07:47 Creatinine 0.83 mg/dL (0.52-1.04) 12/08/17 07:47 Est GFR (CKD-EPI)AfAm 86 (>60 ml/min/1.73 sqM) 12/08/17 07:47 Est GFR (CKD-EPI)NonAf 75 (>60 ml/min/1.73 sqM) 12/08/17 07:47 Glucose 293 mg/dL (74-99) H 12/08/17 07:47 POC Glucose (mg/dL) 362 mg/dL (75-99) H 12/08/17 21:33 POC Glu Live Out Nanny ID Jess Shields 12/08/17 21:[address] Glu mg/dL 169 12/01/17 05:04 Hemoglobin A1c 7.5 % (4.0-6.0) H 12/01/17 05:04 Plasma Lactic Acid Tim 1.7 mmol/L (0.7-2.0) 11/30/17 12:56 Calcium 7.9 mg/dL (8.4-10.2) L 12/08/17 07:47 Phosphorus 1.6 mg/dL (2.5-4.5) L 12/05/17 08:08 Magnesium 1.7 mg/dL (1.6-2.3) 12/08/17 07:47 Total Bilirubin 0.6 mg/dL (0.2-1.3) 11/30/17 12:56 AST 22 U/L (14-36) 10/04/18 12:56 ALT 36 U/L (9-52) 11/30/17 12:56 Alkaline Phosphatase 147 U/L (38-126) H 11/30/17 12:56 Troponin I <0.012 ng/mL (0.000-0.034) 12/01/17 20:00 Total Protein 5.4 g/dL (6.3-8.2) L 11/30/17 12:56 Albumin 2.6 g/dL (3.5-5.0) L 11/30/17 12:56 Cortisol 63 ug/dL 12/02/17 05:29 Urine Color Yellow 11/30/17 18:50 Urine Appearance Cloudy (Clear) H 11/30/17 18:50 Urine pH 5.0 (5.0-8.0) 11/30/17 18:50 Ur Specific Atkins 1.025 (1.001-1.035) 11/30/17 18:50 Urine Protein Trace (Negative) H 11/30/17 18:50 Urine Glucose (UA) Negative (Negative) 11/30/17 18:50 Urine Ketones Trace (Negative) H 11/30/17 18:50 Urine Blood Small (Negative) H 11/30/17 18:50 Urine Nitrite Negative (Negative) 11/30/17 18:50 Urine Bilirubin Negative (Negative) 11/30/17 18:50 Urine Urobilinogen <2.0 mg/dL (<2.0) 11/30/17 18:50 Ur Leukocyte Esterase Negative (Negative) 11/30/17 18:50 Urine RBC 11 /hpf (0-5) H 11/30/17 18:50 Urine WBC 4 /hpf (0-5) 11/30/17 18:50 Ur Squamous Epith Cells <1 /hpf (0-4) 11/30/17 18:50 Urine Mucus Rare /hpf (None) H 11/30/17 18:50 Vancomycin Trough 23.5 ug/mL 12/07/17 11:01 IgG 510.0 mg/dL (700.0-1600.0) L 12/03/17 07:14 IgM <16.9 mg/dL (40.0-280.0) L 12/04/17 05:00 Blood Type O Positive 11/30/17 12:56 Blood Type Recheck CABO Indicated 11/30/17 12:56 Antibody Screen NEGATIVE 11/30/17 12:56 Spec Expiration Date 11/30/2017 - 1425 11/30/17 12:56 Microbiology 11/30/17 12:56 Blood Blood Culture - Final No Growth after 144 hours 11/30/17 18:50 Urine,Catheterized Urine Culture - Final Assessment and Plan (1) Febrile neutropenia Narrative/Plan: 67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 She has received her first course of chemotherapy and presents with febrile neutropenia. She was also hypotensive requiring fluid resuscitation and vasopressor therapy. She is now considerably improved. She is no longer requiring vasopressor r support and is feeling considerably better. Hematology oncology is following and transfusions as per their protocol. Cultures are in process and is receiving antibiotic therapy with cefepime, metronidazole and vancomycin at this time pending further culture data. The patient's bone marrow recovery and cultures will further direct the course of antibiotic therapy. IgG level can be obtained to further help direct courses of treatment also. 12/04/2017 the patient is feeling better today. Still has some generalized weakness and is about some lower extremity edema. Her IV fluid was discontinued now that her carbon dioxide has normalized. Continue with elevation the limbs all she is at rest for the edema. Her febrile neutropenia has resolved and she is doing considerably better at this time. If she gets ready for discharge to home she will be able to transition to a course of oral levofloxacin 500 mg a day for 7 days in conjunction with the clerical support. Please note that her ciprofloxacin ALLERGY was of heartburn. Her hypokalemia is being supplemented and hopefully with discontinuation of fluid she'll have rapid correction of this. Oncology is following and are making plans for her next round of chemotherapy. IgG level is minimally low if she has further difficulties with infections may benefit from intravenous immunoglobulin infusion. 12/08/2017 patient is had further improvement except for her metabolic abnormalities. She's had hypokalemia and elevated blood glucose requiring short -term insulin drip. Medication and being transitioned and likely will be discharged home in the next relatively short period of time. 7 days of Levaquin will be utilized to finish her treatment of her sepsis and neutropenia. Current Visit: Yes Status: Acute Code(s): D70.9 - NEUTROPENIA, UNSPECIFIED; R50.81 - FEVER PRESENTING WITH CONDITIONS CLASSIFIED ELSEWHERE SNOMED Code(s) : 614727791 (2) Bicytopenia Current Visit: Yes Status: Acute Code(s): D75.89 - OTHER SPECIFIED DISEASES OF BLOOD AND BLOOD-FORMING ORGANS SNOMED Code(s): 876290129 (3) Non Hodgkin's lymphoma Current Visit: No Status: Acute Priority: Medium Code(s): C85.90 - NON- HODGKIN LYMPHOMA, UNSPECIFIED, UNSPECIFIED SITE SNOMED Code(s): 785439895
[2017-12-09] MEDS: VANCOMYCIN 1,250 MG in SODIUM CHLORIDE 0.9% 250 ML IVPB SCH ×2
[2017-12-09 01:27] LABS: Glucose,Whole Blood 165 mg/dL (75-99)
[2017-12-09 05:53] LABS: Glucose,Whole Blood 171 mg/dL (75-99)
[2017-12-09] MEDS: CEFEPIME 2 GM in SODIUM CHLORIDE 0.9% 50 ML IVPB SCH (05:57)
[2017-12-09] MEDS: LEVOTHYROXINE 125 MCG TAB PO SCH (05:58)
[2017-12-09 07:01] LABS: Glucose,Whole Blood 185 mg/dL (75-99)
[2017-12-09 08:03] LABS: Anion Gap 7 mmol/L; Blood Urea Nitrogen 16 mg/dL (7-17); Calcium 8.1 mg/dL (8.4-10.2); Carbon Dioxide 26 mmol/L (22-30); Chloride 111 mmol/L (98-107); Glucose 155 mg/dL (74-99); Potassium 3.4 mmol/L (3.5-5.1); Sodium 144 mmol/L (137-145)
[2017-12-09] MEDS: INSULIN ASPART 100 UNIT/ML 1 ML 10 ML VIAL SQ SCH (08:49)
[2017-12-09] MEDS: INSULIN DETEMIR 100 UNIT/ML 10 ML VIAL SQ SCH (08:50)
[2017-12-09] MEDS: FUROSEMIDE 20 MG TAB PO SCH (08:54)
[2017-12-09] MEDS: metFORMIN 500 MG TAB PO SCH (08:54)
[2017-12-09] MEDS: PANTOPRAZOLE 40 MG TABLET PO SCH (08:54)
[2017-12-09] MEDS: metroNIDAZOLE 500 MG TAB PO SCH (08:54)
[2017-12-09] MEDS: GABAPENTIN 100 MG CAP PO SCH (08:54)
[2017-12-09] MEDS: GLIMEPIRIDE 2 MG TAB PO SCH (08:55)
[2017-12-09] MEDS: HYDROCORTISONE SUCCINATE 100 MG/2 ML VIAL IV SCH ×2 (08:55)
[2017-12-09] MEDS: CITALOPRAM HYDROBROMIDE 20 MG TAB PO SCH (08:55)
[2017-12-09] MEDS: POTASSIUM CHLORIDE ER 10 MEQ TAB.ER.PRT PO SCH (08:55)
[2017-12-09 11:31] LABS: Glucose,Whole Blood 175 mg/dL (75-99)
[2017-12-09] MEDS ORDERED: POTASSIUM CHLORIDE ER 20 MEQ TAB.ER PO STA (12:03)
[2017-12-09 12:51] VITALS: BP 161/78; RESP 15; TEMP 98
[2017-12-09 14:10] VITALS: PULSE 62
[2017-12-09] MEDS ORDERED: INSULIN DETEMIR 100 UNIT/ML 10 ML VIAL SQ ONE (21:56)
== END 2017-12-09 15:10 | disposition home health service (06) | DRG 871 ==
LOC: EC 12:15 → 6ICU 16:54 → 5ONC 12-02 16:48
PROVIDERS: ADMIT Family Medicine; ATTEND Family Medicine
DX: A41.9 Sepsis, unspecified organism (principal); R65.21 Severe sepsis with septic shock; C85.18 Unspecified B-cell lymphoma, lymph nodes of multiple sites; N13.2 Hydronephrosis with renal and ureteral calculous obstruction; I50.32 Chronic diastolic (congestive) heart failure; E87.1 Hypo-osmolality and hyponatremia; I13.0 Hypertensive heart and chronic kidney disease with heart failure and stage 1 through stage 4 chronic kidney disease, or unspecified chronic kidney disease; E87.2 Acidosis; K56.7 Ileus, unspecified; D70.1 Agranulocytosis secondary to cancer chemotherapy; E11.22 Type 2 diabetes mellitus with diabetic chronic kidney disease; D70.3 Neutropenia due to infection; D64.81 Anemia due to antineoplastic chemotherapy; E11.65 Type 2 diabetes mellitus with hyperglycemia; N18.3 Chronic kidney disease, stage 3 (moderate); E83.51 Hypocalcemia; E83.42 Hypomagnesemia; Z66 Do not resuscitate; R50.81 Fever presenting with conditions classified elsewhere; T45.1X5A Adverse effect of antineoplastic and immunosuppressive drugs, initial encounter; I49.3 Ventricular premature depolarization; K52.9 Noninfective gastroenteritis and colitis, unspecified; E87.6 Hypokalemia; E78.5 Hyperlipidemia, unspecified; G47.33 Obstructive sleep apnea (adult) (pediatric); E89.0 Postprocedural hypothyroidism; F41.9 Anxiety disorder, unspecified; G89.29 Other chronic pain; M54.6 Pain in thoracic spine; I25.2 Old myocardial infarction; Z79.84 Long term (current) use of oral hypoglycemic drugs; Z79.890 Hormone replacement therapy; Z79.899 Other long term (current) drug therapy; Z87.820 Personal history of traumatic brain injury; Z87.442 Personal history of urinary calculi; Z90.49 Acquired absence of other specified parts of digestive tract; Z90.710 Acquired absence of both cervix and uterus; Z99.89 Dependence on other enabling machines and devices; Z87.440 Personal history of urinary (tract) infections; Z88.1 Allergy status to other antibiotic agents; Z91.041 Radiographic dye allergy status; Z88.8 Allergy status to other drugs, medicaments and biological substances; Z91.048 Other nonmedicinal substance allergy status; Z80.3 Family history of malignant neoplasm of breast; Z80.0 Family history of malignant neoplasm of digestive organs; Z80.8 Family history of malignant neoplasm of other organs or systems
CPT/HCPCS: 36415; 51702; 71046; 74177; 80048; 80053; 80202; 81001; 82533; 82784; 83036; 83605; 83735; 84100; 84132; 84484; 85025; 85610; 85730; 86850; 86900; 86901; 87040; 87086; 93005; 93306; 96365; 96366; 96367; 96368; 96375; 99291

== ENCOUNTER 2018-01-23 16:00 | Inpatient (IN) | payer MEDICARE, OTHER ==
[2018-01-23 17:44] LABS: Anisocytosis Moderate; HCT 27.1 % (34.0-46.0); Hypochromasia Marked; MCH 27.4 pg (25.0-35.0); MCHC 29.5 g/dL (31.0-37.0); Macrocytosis Slight; Mean Platelet Volume 8.7; Platelet Count 403 k/uL (150-450); Poikilocytosis Slight; RBC 2.92 m/uL (3.80-5.40); RDW 23.1 % (11.5-15.5); WBC 9.5 k/uL (3.8-10.6)
[2018-01-23 17:52] LABS: INR 0.9 (<1.2); Prothrombin Time 9.5 sec (9.0-12.0)
[2018-01-23 17:53] LABS: ALT 27 U/L (9-52); AST 19 U/L (14-36); Alkaline Phosphatase 184 U/L (38-126); Anion Gap 10 mmol/L; Blood Urea Nitrogen 16 mg/dL (7-17); Calcium 9.2 mg/dL (8.4-10.2); Carbon Dioxide 28 mmol/L (22-30); Chloride 101 mmol/L (98-107); Glucose 317 mg/dL (74-99); Sodium 139 mmol/L (137-145); Total Bilirubin 0.5 mg/dL (0.2-1.3); Total Protein 5.4 g/dL (6.3-8.2)
[2018-01-23 17:57] LABS: Creatine Kinase <20 U/L (30-135)
[2018-01-23 18:07] LABS: MCV 93.1 fL (80.0-100.0)
[2018-01-23 18:10] LABS: Creatine Kinase MB <0.2 ng/mL (0.0-2.4); Troponin I <0.012 ng/mL (0.000-0.034)
--- NOTE | 2018-01-23 18:56 | ED ---
General Adult HPI <Dwayne Casas - Last Filed: 01/24/18 00:50> - General Source: patient Mode of arrival: ambulatory Limitations: no limitations <Meeta Garcia - Last Filed: 01/24/18 01:28> - General Chief complaint: Shortness of Breath Stated complaint: Dr limon, low oxygen levels Time Seen by Provider: 01/23/18 18:00 - History of Present Illness Initial comments: 67-year-old female patient presents to emergency department today for evaluation of low oxygen saturation. Patient is currently being treated for non -Hodgkin's lymphoma and does have physical therapy and home care nurse seeing coming into the home. States that before her physical therapy session this finding attempting to get her oxygen saturation however could not get it out of the 80s. Patient denies any significant shortness of breath however states when she takes a deep breath she does feel pressure over the chest. She states she is able to perform her usual activities without much difficulty or dyspnea. She denies any swelling to the arms or legs. Patient believes she is currently receiving chemotherapy but she is unsure what her exact regimen details. She is reporting some urinary frequency and urinary urgency. States she is voiding frequent small amounts. She is concerned she may have urinary tract infection. She denies any fevers or chills. Denies any calf pain or tenderness. Patient denies any recent rash, chest pain, abdominal pain, nausea, vomiting, diarrhea, constipation, back pain, numbness, tingling, dizziness, weakness, headache, visual changes, or any other complaints. (Meeta Garcia) - Related Data Home Medications Medication Instructions Recorded Confirmed RX: Furosemide 20 mg PO BID 09/19/13 01/23/18 RX: Gabapentin 100 mg PO QAM 09/19/13 01/23/18 RX: Potassium Chloride [Klor-Con 10 meq PO DAILY 09/19/13 01/23/18 10] RX: Gabapentin [Neurontin] 200 mg PO HS 12/05/14 01/23/18 RX: Levothyroxine Sodium 125 mcg PO MOTUWETHFRSA 12/05/14 01/23/18 [Synthroid] RX: Multivitamins, Thera 1 tab PO DAILY 05/24/17 01/23/18 [Multivitamin (formulary)] RX: ALPRAZolam [Xanax] 0.5 - 1 mg PO DAILY PRN 06/12/17 01/23/18 RX: Atorvastatin Calcium [Lipitor] 40 mg PO HS 06/12/17 01/23/18 RX: Citalopram Hydrobromide 20 mg PO DAILY 10/22/17 01/23/18 [CeleXA] RX: Ondansetron HCl [Zofran] 8 mg PO Q6H PRN 11/30/17 01/23/18 RX: Pantoprazole [Protonix] 40 mg PO DAILY 11/30/17 01/23/18 Super B Complex 1 tab PO DAILY 11/30/17 01/23/18 HYDROcodone/APAP 7.5-325MG [[place] 1 tab PO Q6HR PRN 01/23/18 01/23/18 7.5-325] Loratadine [Claritin] 10 mg PO DAILY 01/23/18 01/23/18 RX: INSULIN LISPRO (HumaLOG) See Protocol SQ ACHS PRN 01/23/18 01/23/18 [humaLOG] RX: Insulin Detemir [Levemir] 30 unit SQ DIRECTED 01/23/18 01/23/18 Previous Rx's Medication Instructions Recorded RX: Acetaminophen Tab [Tylenol] 650 mg PO Q4HR PRN tab 12/08/17 RX: Glimepiride [Amaryl] 2 mg PO DAILY #0 12/08/17 RX: metFORMIN HCL 1,000 mg PO BID #0 12/08/17 Allergies Allergy/AdvReac Type Severity Reaction Status Date / Time haloperidol [From Haldol] Allergy Unknown Verified 01/23/18 18:06 haloperidol lactate Allergy Unknown Verified 01/23/18 18:06 [From Haldol] Iodinated Contrast- Oral and Allergy Rash/Hives Verified 01/23/18 18:06 IV Dye [Iodinated Contrast Media - IV Dye] ciprofloxacin [From Cipro] AdvReac Heartburn Verified 01/23/18 18:06 steri-strips AdvReac Severe sore Uncoded 11/30/17 12:30 Review of Systems ROS Other: All systems not noted in ROS Statement are negative. <Dwayne Casas - Last Filed: 01/24/18 00:50> ROS Other: All systems not noted in ROS Statement are negative. <Meeta Garcia - Last Filed: 01/24/18 01:28> ROS Statement: Those systems with pertinent positive or pertinent negative responses have been documented in the HPI. Past Medical History Past Medical History: Cancer, Heart Failure, Diabetes Mellitus, Hyperlipidemia, Hypertension, Sleep Apnea/CPAP/BIPAP, Thyroid Disorder Additional Past Medical History / Comment(s): B-cell non-Hodgkin's lymphoma stage IV, diabetes mellitus,daughter stated pt had first chemo mon 11-20-17 hypertension, hyperlipidemia, obstructive sleep apnea, hypothyroidism post thyroidectomy, closed head injury in 1988, difficulty with mobility and ambulation the patient has been using a walker. has a history of kidney stones Last Myocardial Infarction Date:: 1988 History of Any Multi-Drug Resistant Organisms: None Reported Past Surgical History: Cholecystectomy, Hysterectomy, Tonsillectomy Additional Past Surgical History / Comment(s): Thyroidectomy, lymph node and liver biopsies. port a cath 11-06-17, right ureteroscopy with lithotripsy 12/2014 Past Anesthesia/Blood Transfusion Reactions: Postoperative Nausea & Vomiting ( PONV) Past Psychological History: Anxiety Smoking Status: Never smoker Past Alcohol Use History: None Reported Past Drug Use History: Marijuana - Past Family History Mother Family Medical History: Cancer Additional Family Medical History / Comment(s): breast CA Father Family Medical History: Cancer Additional Family Medical History / Comment(s): colon CA Sister(s) Family Medical History: Cancer Additional Family Medical History / Comment(s): Skin cancer <Meeta Garcia M - Last Filed: 01/24/18 01:28> General Exam Limitations: no limitations General appearance: alert, in no apparent distress, other (This is a well- developed, well-nourished adult female patient in no acute distress. Vital signs upon presentation are temperature 98.2F, pulse 95, respirations 18, blood pressure 129/76, pulse ox 96% on room air.) Eye exam: Present: normal appearance, PERRL, EOMI, other (Pale conjunctiva). Absent: scleral icterus, conjunctival injection, periorbital swelling ENT exam: Present: normal exam, normal oropharynx, mucous membranes moist Respiratory exam: Present: normal lung sounds bilaterally. Absent: respiratory distress, wheezes, rales, rhonchi, stridor Cardiovascular Exam: Present: regular rate, normal rhythm, normal heart sounds. Absent: systolic murmur, diastolic murmur, rubs, gallop, clicks GI/Abdominal exam: Present: soft, normal bowel sounds. Absent: distended, tenderness, guarding, rebound, rigid Neurological exam: Present: alert, oriented X3, CN II-XII intact Psychiatric exam: Present: normal affect, normal mood Skin exam: Present: warm, dry, intact, normal color. Absent: rash <Meeta Garcia - Last Filed: 01/24/18 01:28> Course <Dwayne Casas - Last Filed: 01/24/18 00:50> <Meeta Garcia - Last Filed: 01/24/18 01:28> Vital Signs 01/23/18 01/23/18 01/23/18 16:15 21:20 22:21 Temperature 98 F Pulse Rate 95 Respiratory 18 Rate Blood Pressure 129/76 120/73 O2 Sat by Pulse 96 97 86 L Oximetry - Reevaluation(s) Reevaluation #1: 01/24/18 00:44 Patient reevaluated by myself, Dr. Casas. Patient resting comfortably in bed. Lung sounds are clear. Patient and family updated on results. Case was discussed in detail with Dr. Paulson who recommends medical admission and he will consult. He recommends no antibiotics at this time. Does request pulmonary consult. Dr. Solano has been paged again. 01/24/18 00:50 Case was discussed with Dr. Solano, who will admit. (Dwayne Casas) EKG Findings - EKG Comments: EKG Findings:: EKG obtained at 1720 shows normal sinus rhythm with a left axis deviation. Ventricular rate is 92, MA interval 172, QRS duration 90, QT 370, QTC 457. <Meeta Garcia - Last Filed: 01/24/18 01:28> Medical Decision Making - Lab Data Result diagrams: 01/23/18 17:14 01/23/18 17:14 <Dwayne Casas - Last Filed: 01/24/18 00:50> - Lab Data Result diagrams: 01/23/18 17:14 01/23/18 17:14 - Radiology Data Radiology results: report reviewed, image reviewed <Meeta Garcia - Last Filed: 01/24/18 01:28> - Medical Decision Making 67-year-old female patient presents to the emergency department today for evaluation of decreased oxygen saturation. Physical examination upon arrival patient was breathing without difficulty. Lungs are clear to auscultation with good air movement. Patient did seem pale and did have Conjunctiva. Labs reviewed and did reveal decreased hemoglobin to 8.0. Remainder of labs are unremarkable. EKG showed normal sinus rhythm. Patient did have some oxygen saturation in the mid 80s while here in the department. D-dimer did come back at 1.3. We did CT angio of the chest which showed no evidence of pulmonary embolism however did show evidence of pneumonitis. My attending Dr. Casas did see and evaluate the patient, we will admit to the hospital for pulmonary consultation and further evaluation by her physician and oncologist. (Meeta Garcia) - Lab Data Lab Results 01/23/18 01/23/18 01/23/18 Range/Units 17:14 17:14 17:14 WBC 9.5 (3.8-10.6) k/uL RBC 2.92 L (3.80-5.40) m/uL Hgb 8.0 L D (11.4-16.0) gm/dL Hct 27.1 L (34.0-46.0) % MCV 93.1 D (80.0-100.0) fL MCH 27.4 (25.0-35.0) pg MCHC 29.5 L (31.0-37.0) g/dL RDW 23.1 H (11.5-15.5) % Plt Count 403 (150-450) k/uL Neutrophils % (Manual) 56 % Band Neutrophils % 5 % Lymphocytes % (Manual) 10 % Monocytes % (Manual) 10 % Eosinophils % (Manual) 8 % Metamyelocytes % 3 % Myelocytes % 11 % Neutrophils # (Manual) 5.70 (1.3-7.7) k/uL Lymphocytes # (Manual) 0.95 L (1.0-4.8) k/uL Monocytes # (Manual) 0.95 (0-1.0) k/uL Eosinophils # (Manual) 0.76 H (0-0.7) k/uL Metamyelocytes # (Man) 0.29 H (0) k/uL Myelocytes # (Manual) 1.05 H (0) k/uL Nucleated RBCs 0 (0-0) /100 WBC Manual Slide Review Performed Toxic Granulation Present Large Platelets Present Polychromasia Present Hypochromasia Marked Poikilocytosis Slight Poikilocytosis (manual Present Anisocytosis Moderate Macrocytosis Slight PT (9.0-12.0) sec INR (<1.2) APTT (22.0-30.0) sec D-Dimer (<0.60) mg/L FEU Sodium 139 (137-145) mmol/L Potassium 4.0 (3.5-5.1) mmol/L Chloride 101 (98-107) mmol/L Carbon Dioxide 28 (22-30) mmol/L Anion Gap 10 mmol/L BUN 16 (7-17) mg/dL Creatinine 0.78 (0.52-1.04) mg/dL Est GFR (CKD-EPI)AfAm >90 (>60 ml/min/1.73 sqM) Est GFR (CKD-EPI)NonAf 80 (>60 ml/min/1.73 sqM) Glucose 317 H (74-99) mg/dL Calcium 9.2 (8.4-10.2) mg/dL Total Bilirubin 0.5 (0.2-1.3) mg/dL AST 19 (14-36) U/L ALT 27 (9-52) U/L Alkaline Phosphatase 184 H (38-126) U/L Total Creatine Kinase <20 L (30-135) U/L CK-MB (CK-2) <0.2 (0.0-2.4) ng/mL CK-MB (CK-2) Rel Index Troponin I <0.012 (0.000-0.034) ng/mL Total Protein 5.4 L (6.3-8.2) g/dL Albumin 3.0 L (3.5-5.0) g/dL Urine Color Urine Appearance (Clear) Urine pH (5.0-8.0) Ur Specific Bee (1.001-1.035) Urine Protein (Negative) Urine Glucose (UA) (Negative) Urine Ketones (Negative) Urine Blood (Negative) Urine Nitrite (Negative) Urine Bilirubin (Negative) Urine Urobilinogen (<2.0) mg/dL Ur Leukocyte Esterase (Negative) 01/23/18 01/23/18 01/23/18 Range/Units 17:14 17:14 19:38 WBC (3.8-10.6) k/uL RBC (3.80-5.40) m/uL Hgb (11.4-16.0) gm/dL Hct (34.0-46.0) % MCV (80.0-100.0) fL MCH (25.0-35.0) pg MCHC (31.0-37.0) g/dL RDW (11.5-15.5) % Plt Count (150-450) k/uL Neutrophils % (Manual) % Band Neutrophils % % Lymphocytes % (Manual) % Monocytes % (Manual) % Eosinophils % (Manual) % Metamyelocytes % % Myelocytes % % Neutrophils # (Manual) (1.3-7.7) k/uL Lymphocytes # (Manual) (1.0-4.8) k/uL Monocytes # (Manual) (0-1.0) k/uL Eosinophils # (Manual) (0-0.7) k/uL Metamyelocytes # (Man) (0) k/uL Myelocytes # (Manual) (0) k/uL Nucleated RBCs (0-0) /100 WBC Manual Slide Review Toxic Granulation Large Platelets Polychromasia Hypochromasia Poikilocytosis Poikilocytosis (manual Anisocytosis Macrocytosis PT 9.5 (9.0-12.0) sec INR 0.9 (<1.2) APTT 24.0 (22.0-30.0) sec D-Dimer 1.32 H (<0.60) mg/L FEU Sodium (137-145) mmol/L Potassium (3.5-5.1) mmol/L Chloride (98-107) mmol/L Carbon Dioxide (22-30) mmol/L Anion Gap mmol/L BUN (7-17) mg/dL Creatinine (0.52-1.04) mg/dL Est GFR (CKD-EPI)AfAm (>60 ml/min/1.73 sqM) Est GFR (CKD-EPI)NonAf (>60 ml/min/1.73 sqM) Glucose (74-99) mg/dL Calcium (8.4-10.2) mg/dL Total Bilirubin (0.2-1.3) mg/dL AST (14-36) U/L ALT (9-52) U/L Alkaline Phosphatase (38-126) U/L Total Creatine Kinase (30-135) U/L CK-MB (CK-2) (0.0-2.4) ng/mL CK-MB (CK-2) Rel Index Troponin I (0.000-0.034) ng/mL Total Protein (6.3-8.2) g/dL Albumin (3.5-5.0) g/dL Urine Color Yellow Urine Appearance Clear (Clear) Urine pH 5.5 (5.0-8.0) Ur Specific Bee 1.015 (1.001-1.035) Urine Protein Trace H (Negative) Urine Glucose (UA) 1+ H (Negative) Urine Ketones Negative (Negative) Urine Blood Negative (Negative) Urine Nitrite Negative (Negative) Urine Bilirubin Negative (Negative) Urine Urobilinogen 2.0 (<2.0) mg/dL Ur Leukocyte Esterase Negative (Negative) - Radiology Data CT chest angiography for PE was obtained. Report was reviewed in its entirety. Impression by Dr. Trev Mcmanus shows negative for pulmonary emboli or other acute mediastinal findings. Positive lung findings include widespread ill- defined groundglass opacity throughout the pulmonary parenchyma bilaterally, correlate for pneumonitis. Two-view x-ray of the chest was obtained. Report was reviewed in its entirety. Impression by Dr. Trev Mcmanus shows no definite acute process (Meeta Garcia) Disposition <Dwayne Casas - Last Filed: 01/24/18 00:50> Decision to Admit Reason: Admit from EC Decision Date: 01/24/18 Decision Time: 01:09 <Meeta Garcia - Last Filed: 01/24/18 01:28> Clinical Impression: Pneumonitis, Hypoxia Disposition: ADMITTED IP TO THIS HOSP Condition: Serious
[2018-01-23 19:41] LABS: Band Neutrophils % 5 %; Eosinophils # (M) 0.76 k/uL (0-0.7); Large Platelets Present; Lymphocytes # (M) 0.95 k/uL (1.0-4.8); Metamyelocytes # (M) 0.29 k/uL (0); Metamyelocytes % 3 %; Monocytes # (M) 0.95 k/uL (0-1.0); Myelocytes # (M) 1.05 k/uL (0); Myelocytes % 11 %; Neutrophils % (M) 56 %; Nucleated Red Blood Cells 0 /100 WBC (0-0); Poikilocytosis (M) Present; Polychromasia Present; Total Cells Counted 200; Toxic Granulation Present
[2018-01-23] MEDS ORDERED: FAMOTIDINE 20 MG/2 ML VIAL IV STA (20:01)
[2018-01-23] MEDS ORDERED: diphenhydrAMINE 50 MG/ML 1 ML VIAL IVP STA (20:01)
[2018-01-23] MEDS ORDERED: methylPREDNISolone SOD SUCCI 125 MG/2 ML VIAL IV STA (20:01)
[2018-01-23 20:03] LABS: Appearance,Urine Clear (Clear); Bilirubin,Urine Negative (Negative); Blood,Urine Negative (Negative); Color,Urine Yellow; Glucose,Urine (UA) 1+ (Negative); Ketones,Urine Negative (Negative); Leukocyte Esterase,Urine Negative (Negative); Nitrite,Urine Negative (Negative); PH, Urine 5.5 (5.0-8.0); Protein,Urine Trace (Negative); Specific Gravity,Urine 1.015 (1.001-1.035)
--- NOTE | 2018-01-23 20:15 | XR ---
EXAMINATION: XR chest 2V DATE AND TIME: 01/23/2018 6:41 PM CLINICAL INDICATION: difficulty breathing TECHNIQUE: PA and lateral COMPARISON: November 30, 2017 FINDINGS: Right IJ catheter tip superimposes the mid SVC. The lungs are clear of acute pulmonary processes, although the left midlung zone 1 cm calcific opacit y is redemonstrated. The pleural spaces are negative. The cardiac silhouette is not enlarged. The remainder of the mediastinal silhouette is unremarkable. The skeletal structures and soft tissues are negative for acute findings. IMPRESSION: NO DEFINITE ACUTE PROCESS.
--- NOTE | 2018-01-23 22:18 | CT ---
EXAMINATION TYPE: CT chest angio for PE with contrast and with 3-D reconstruction renderings DATE OF EXAM: 01/23/2018 COMPARISON: 11/30/2017 CT HISTORY: sent by oncologist for abnormal labs, hx of lymphoma CT DLP: 306.3 mGycm. Automated exposure control for dose reduction was used. CONTRAST: CT Chest for pulmonary embolism performed with with IV Contrast, patient injected with 79 m L of Isovue 370. FINDINGS: AIRWAYS: The airways are unremarkable. LUNGS: The lungs show a bilateral heterogeneous groundglass opacity pattern which is nondependent and is seen throughout the bilateral upper and mid and lower lung zones. There are also a few scattered ill-defined consolidative opacities in the lung bases, measuring 1-2 cm. PLEURAL SPACES: Negative. MEDIASTINUM: The pulmonary arterial tree is widely patent without evidence of pulmonary emboli. The t he aortic root and ascending aorta are top normal in caliber at 3.9 cm, but no acute aortic findings. There is moderate cardiomegaly and coronary calcifications. No pericardial effusion. Mildly bilatera lly prominent hilar lymph appreciated, particularly on the right. SKELETAL STRUCTURES: No acute skeletal findings. 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 No new epigastric findings. IMPRESSION: 1. Negative for pulmonary emboli or other acute mediastinal findings. 2. Positive lung findings including widespread ill-defined groundglass opacity throughout the pulmon bessie parenchyma bilaterally; correlate for pneumonitis.
[2018-01-24] MEDS ORDERED: NALOXONE 0.4 MG/ML 1 ML VIAL IV PRN (01:04)
[2018-01-24] MEDS ORDERED: ONDANSETRON 4 MG/2 ML VIAL IVP PRN (01:04)
[2018-01-24 01:15] LABS: Glucose,Whole Blood 417 mg/dL (75-99)
[2018-01-24] MEDS: SODIUM CHLORIDE 0.9% 1,000 ML IV SCH ×3 (04:06→22:39)
[2018-01-24 07:11] LABS: Glucose,Whole Blood 504 mg/dL (75-99)
[2018-01-24] MEDS ORDERED: INSULIN ASPART 100 UNIT/ML 1 ML 10 ML VIAL SQ ONE ×2 (07:25→12:15)
[2018-01-24] MEDS: INSULIN ASPART 100 UNIT/ML 1 ML 10 ML VIAL SQ SCH ×4 (07:27→22:05)
[2018-01-24] MEDS ORDERED: INSULIN DETEMIR 100 UNIT/ML 10 ML VIAL SQ SCH ×2 (08:45→21:00)
[2018-01-24] MEDS ORDERED: SUPER B COMPLEX PO SCH (09:00)
[2018-01-24] MEDS: LEVOTHYROXINE 125 MCG TAB PO SCH (10:19)
[2018-01-24] MEDS: GLIMEPIRIDE 2 MG TAB PO SCH (10:20)
[2018-01-24] MEDS: CITALOPRAM HYDROBROMIDE 20 MG TAB PO SCH (10:20)
[2018-01-24] MEDS: FUROSEMIDE 20 MG TAB PO SCH ×2 (10:20→17:47)
[2018-01-24] MEDS: GABAPENTIN 100 MG CAP PO SCH (10:20)
[2018-01-24] MEDS: PANTOPRAZOLE 40 MG TABLET PO SCH (10:21)
[2018-01-24] MEDS: LORATADINE 10 MG TAB PO SCH (10:21)
[2018-01-24] MEDS: metFORMIN 500 MG TAB PO SCH ×2 (10:21→22:10)
[2018-01-24] MEDS: POTASSIUM CHLORIDE ER 10 MEQ TAB.ER.PRT PO SCH (10:21)
[2018-01-24] MEDS ORDERED: HYDROcodone/APAP 7.5-325MG 1 EACH TAB PO PRN (11:19)
[2018-01-24] MEDS ORDERED: ALPRAZolam 0.5 MG TAB PO PRN (11:19)
[2018-01-24 11:42] LABS: Glucose,Whole Blood 462 mg/dL (75-99)
--- NOTE | 2018-01-24 11:56 | P.HPIM ---
History of Present Illness 67-year-old female presented to the hospital with low oxygen saturation 80%. Patient is a cough. Patient is on chemotherapy for non-Hodgkin's lymphoma stage IV. The patient also diabetic with blood glucose 400-500. Patient also has pancytopenia .patient was evaluated by pulmonology and they recommended Augmentin 875 twice a day 7 days Review of Systems Constitutional: Reports fatigue Respiratory: Reports cough Past Medical History Past Medical History: Cancer, Heart Failure, Diabetes Mellitus, Hyperlipidemia, Hypertension, Sleep Apnea/CPAP/BIPAP, Thyroid Disorder Additional Past Medical History / Comment(s): B-cell non-Hodgkin's lymphoma stage IV, diabetes mellitus,daughter stated pt had first chemo mon 11-20-17 hypertension, hyperlipidemia, obstructive sleep apnea, hypothyroidism post thyroidectomy, closed head injury in 1988, difficulty with mobility and ambulation the patient has been using a walker. has a history of kidney stones Last Myocardial Infarction Date:: 1988 History of Any Multi-Drug Resistant Organisms: None Reported Past Surgical History: Cholecystectomy, Hysterectomy, Tonsillectomy Additional Past Surgical History / Comment(s): Thyroidectomy, lymph node and liver biopsies. port a cath 11-06-17, right ureteroscopy with lithotripsy 12/2014 Past Anesthesia/Blood Transfusion Reactions: Postoperative Nausea & Vomiting ( PONV) Past Psychological History: Anxiety Smoking Status: Never smoker Past Alcohol Use History: None Reported Past Drug Use History: Marijuana - Past Family History Mother Family Medical History: Cancer Additional Family Medical History / Comment(s): breast CA Father Family Medical History: Cancer Additional Family Medical History / Comment(s): colon CA Sister(s) Family Medical History: Cancer Additional Family Medical History / Comment(s): Skin cancer Medications and Allergies Home Medications Medication Instructions Recorded Confirmed Type Furosemide 20 mg PO BID 09/19/13 01/23/18 History Gabapentin 100 mg PO QAM 09/19/13 01/23/18 History Potassium Chloride [Klor-Con 10] 10 meq PO DAILY 09/19/13 01/23/18 History Gabapentin [Neurontin] 200 mg PO HS 12/05/14 01/23/18 History Levothyroxine Sodium [Synthroid] 125 mcg PO MOTUWETHFRSA 12/05/14 01/23/18 History Multivitamins, Thera [Multivitamin 1 tab PO DAILY 05/24/17 01/23/18 History (formulary)] ALPRAZolam [Xanax] 0.5 - 1 mg PO DAILY PRN 06/12/17 01/23/18 History Atorvastatin Calcium [Lipitor] 40 mg PO HS 06/12/17 01/23/18 History Citalopram Hydrobromide [CeleXA] 20 mg PO DAILY 10/22/17 01/23/18 History Ondansetron HCl [Zofran] 8 mg PO Q6H PRN 11/30/17 01/23/18 History Pantoprazole [Protonix] 40 mg PO DAILY 11/30/17 01/23/18 History Super B Complex 1 tab PO DAILY 11/30/17 01/23/18 History Acetaminophen Tab [Tylenol] 650 mg PO Q4HR PRN tab 12/08/17 01/23/18 Rx Glimepiride [Amaryl] 2 mg PO DAILY #0 12/08/17 01/23/18 Rx metFORMIN HCL 1,000 mg PO BID #0 12/08/17 01/23/18 Rx HYDROcodone/APAP 7.5-325MG [[place] 1 tab PO Q6HR PRN 01/23/18 01/23/18 History 7.5-325] INSULIN LISPRO (HumaLOG) [humaLOG] See Protocol SQ ACHS PRN 01/23/18 01/23/18 History Insulin Detemir [Levemir] 30 unit SQ DIRECTED 01/23/18 01/23/18 History Loratadine [Claritin] 10 mg PO DAILY 01/23/18 01/23/18 History Allergies Allergy/AdvReac Type Severity Reaction Status Date / Time haloperidol [From Haldol] Allergy Unknown Verified 01/23/18 18:06 haloperidol lactate Allergy Unknown Verified 01/23/18 18:06 [From Haldol] Iodinated Contrast- Oral and Allergy Rash/Hives Verified 01/23/18 18:06 IV Dye [Iodinated Contrast Media - IV Dye] ciprofloxacin [From Cipro] AdvReac Heartburn Verified 01/23/18 18:06 steri-strips AdvReac Severe sore Uncoded 11/30/17 12:30 Physical Exam Vitals: Vital Signs Temp Pulse Pulse Resp BP BP Pulse Ox 01/24/18 11:39 97.6 F 76 16 159/70 97 01/24/18 10:00 71 138/70 01/24/18 08:45 71 18 01/24/18 03:36 97.7 F 71 16 139/66 97 01/24/18 03:07 139/77 100 01/24/18 02:00 61 16 132/80 98 01/24/18 01:56 97.6 F 69 19 132/80 100 01/24/18 00:20 69 18 133/70 97 01/23/18 22:57 78 20 120/73 97 01/23/18 22:21 120/73 86 L 01/23/18 21:20 97 01/23/18 16:15 98 F 95 18 129/76 96 Intake and Output 01/23/18 01/24/18 01/24/18 22:59 06:59 14:59 Intake Total 590 Balance 590 Intake: Oral 590 Other: Voiding Method Toilet # Voids 1 Weight 63.503 kg - Constitutional General appearance: mild distress - EENT Eyes: PERRLA Ears: bilateral: normal - Neck Neck: normal ROM - Respiratory Respiratory: right: CTA, left: rales - Cardiovascular Rhythm: regular - Gastrointestinal General gastrointestinal: soft - Integumentary Integumentary: normal - Neurologic Neurologic: CNII-XII intact - Musculoskeletal Musculoskeletal: generalized weakness - Psychiatric Psychiatric: A&O x's 3, appropriate affect, intact judgment & insight Results CBC & Chem 7: 01/23/18 17:14 01/23/18 17:14 Labs: Abnormal Lab Results - Last 24 Hours (Table) 01/23/18 01/23/18 01/23/18 Range/Units 17:14 17:14 17:14 RBC 2.92 L (3.80-5.40) m/uL Hgb 8.0 L D (11.4-16.0) gm/dL Hct 27.1 L (34.0-46.0) % MCHC 29.5 L (31.0-37.0) g/dL RDW 23.1 H (11.5-15.5) % Lymphocytes # (Manual) 0.95 L (1.0-4.8) k/uL Eosinophils # (Manual) 0.76 H (0-0.7) k/uL Metamyelocytes # (Man) 0.29 H (0) k/uL Myelocytes # (Manual) 1.05 H (0) k/uL D-Dimer (<0.60) mg/L FEU Glucose 317 H (74-99) mg/dL POC Glucose (mg/dL) (75-99) mg/dL Alkaline Phosphatase 184 H (38-126) U/L Total Creatine Kinase <20 L (30-135) U/L Total Protein 5.4 L (6.3-8.2) g/dL Albumin 3.0 L (3.5-5.0) g/dL Urine Protein (Negative) Urine Glucose (UA) (Negative) 01/23/18 01/23/18 01/24/18 Range/Units 17:14 19:38 01:14 RBC (3.80-5.40) m/uL Hgb (11.4-16.0) gm/dL Hct (34.0-46.0) % MCHC (31.0-37.0) g/dL RDW (11.5-15.5) % Lymphocytes # (Manual) (1.0-4.8) k/uL Eosinophils # (Manual) (0-0.7) k/uL Metamyelocytes # (Man) (0) k/uL Myelocytes # (Manual) (0) k/uL D-Dimer 1.32 H (<0.60) mg/L FEU Glucose (74-99) mg/dL POC Glucose (mg/dL) 417 H (75-99) mg/dL Alkaline Phosphatase (38-126) U/L Total Creatine Kinase (30-135) U/L Total Protein (6.3-8.2) g/dL Albumin (3.5-5.0) g/dL Urine Protein Trace H (Negative) Urine Glucose (UA) 1+ H (Negative) 01/24/18 01/24/18 Range/Units 07:09 11:41 RBC (3.80-5.40) m/uL Hgb (11.4-16.0) gm/dL Hct (34.0-46.0) % MCHC (31.0-37.0) g/dL RDW (11.5-15.5) % Lymphocytes # (Manual) (1.0-4.8) k/uL Eosinophils # (Manual) (0-0.7) k/uL Metamyelocytes # (Man) (0) k/uL Myelocytes # (Manual) (0) k/uL D-Dimer (<0.60) mg/L FEU Glucose (74-99) mg/dL POC Glucose (mg/dL) 504 H 462 H (75-99) mg/dL Alkaline Phosphatase (38-126) U/L Total Creatine Kinase (30-135) U/L Total Protein (6.3-8.2) g/dL Albumin (3.5-5.0) g/dL Urine Protein (Negative) Urine Glucose (UA) (Negative) Chest x-ray: report reviewed CT scan - chest: report reviewed Thrombosis Risk Factor Assmnt - Choose All That Apply Each Risk Factor Represents 2 Points: Age 61-74 years Other congenital or acquired thrombophilia - If yes, enter type in comment: No Thrombosis Risk Factor Assessment Total Risk Factor Score: 2 Thrombosis Risk Factor Assessment Level: Low Risk Assessment and Plan Plan: Assessment Pneumonitis Hypoxia Diabetes type 2 Hypertension Hyperlipidemia Sleep apnea Hypothyroidism Non-Hodgkin's lymphoma stage IV on chemotherapy Chronic anemia Plan Pulmonology evaluate patient recommended Augmentin 875 twice a day Consultation with oncology
[2018-01-24 12:50] LABS: Anisocytosis Moderate; Basophils # (A) 0.1 k/uL (0-0.2); Basophils % (A) 1 %; Eosinophils % (A) 0 %; HCT 25.1 % (34.0-46.0); HGB 7.4 gm/dL (11.4-16.0); Hypochromasia Marked; Lymphocytes # (A) 0.9 k/uL (1.0-4.8); Lymphocytes % (A) 7 %; MCH 27.1 pg (25.0-35.0); MCHC 29.6 g/dL (31.0-37.0); MCV 91.4 fL (80.0-100.0); Macrocytosis Slight; Mean Platelet Volume 8.4; Monocytes # (A) 0.6 k/uL (0-1.0); Monocytes % (A) 4 %; Neutrophils # (A) 11.4 k/uL (1.3-7.7); Neutrophils % (A) 86 %; Platelet Count 392 k/uL (150-450); Poikilocytosis Slight; RBC 2.75 m/uL (3.80-5.40); RDW 22.7 % (11.5-15.5); WBC 13.4 k/uL (3.8-10.6)
[2018-01-24 12:57] LABS: Albumin 2.7 g/dL (3.5-5.0); Calcium 9.2 mg/dL (8.4-10.2); Total Bilirubin 0.3 mg/dL (0.2-1.3)
[2018-01-24] MEDS: AMOXIC-POT CLAV 875-125MG 1 EACH TAB PO SCH ×2 (13:00→22:11)
[2018-01-24] MEDS: MULTIVITAMINS, THERA 1 EACH TAB PO SCH (13:01)
--- NOTE | 2018-01-24 13:53 | P.CNPUL ---
History of Present Illness Consult date: 01/24/18 Requesting physician: Leonard Solano Reason for consult: hypoxemia Chief complaint: Shortness of breath History of present illness: This a very pleasant 67-year-old female patient who follows with Dr. Leonard Solano is her primary care physician. She has a history of diabetes mellitus, hyperlipidemia, hypertension, obstructive sleep apnea utilizing CPAP, hypothyroidism post thyroidectomy, anxiety. She also has a fairly recent diagnosis of B-cell non-Hodgkin's lymphoma stage IV. After her first round of chemotherapy she developed sepsis and was in the intensive care unit we had seen her at that time. She had recovered well. She had a second round of chemotherapy and her oncologist felt her treatment should be changed again. She does have home care and physical therapy. They were checking her oxygen levels which was in the 80s and she was referred to the emergency room for the same. A chest x-ray showed no acute pulmonary process. A CT angiogram revealed some ill defined groundglass opacities bilaterally and there was concern regarding pneumonitis. The patient was admitted for the same. We are seeing her here today in consultation on the regular medical floor. She is awake and alert in no acute distress. She is currently maintaining good O2 saturations in the 90s on room air. She denies any fever, chills or night sweats. No cough or congestion. She is afebrile. Hemodynamically stable. White count 13.4. Hemoglobin 7.4. Creatinine 0.88. Review of Systems 14 point review of system was conducted. All negative other than as mentioned in the HPI. Past Medical History Past Medical History: Cancer, Heart Failure, Diabetes Mellitus, Hyperlipidemia, Hypertension, Sleep Apnea/CPAP/BIPAP, Thyroid Disorder Additional Past Medical History / Comment(s): B-cell non-Hodgkin's lymphoma stage IV, diabetes mellitus,daughter stated pt had first chemo mon 11-20-17 hypertension, hyperlipidemia, obstructive sleep apnea, hypothyroidism post thyroidectomy, closed head injury in 1988, difficulty with mobility and ambulation the patient has been using a walker. has a history of kidney stones Last Myocardial Infarction Date:: 1988 History of Any Multi-Drug Resistant Organisms: None Reported Past Surgical History: Cholecystectomy, Hysterectomy, Tonsillectomy Additional Past Surgical History / Comment(s): Thyroidectomy, lymph node and liver biopsies. port a cath 11-06-17, right ureteroscopy with lithotripsy 12/2014 Past Anesthesia/Blood Transfusion Reactions: Postoperative Nausea & Vomiting ( PONV) Past Psychological History: Anxiety Smoking Status: Never smoker Past Alcohol Use History: None Reported Past Drug Use History: Marijuana - Past Family History Mother Family Medical History: Cancer Additional Family Medical History / Comment(s): breast CA Father Family Medical History: Cancer Additional Family Medical History / Comment(s): colon CA Sister(s) Family Medical History: Cancer Additional Family Medical History / Comment(s): Skin cancer Medications and Allergies Home Medications Medication Instructions Recorded Confirmed Type Furosemide 20 mg PO BID 09/19/13 01/23/18 History Gabapentin 100 mg PO QAM 09/19/13 01/23/18 History Potassium Chloride [Klor-Con 10] 10 meq PO DAILY 09/19/13 01/23/18 History Gabapentin [Neurontin] 200 mg PO HS 12/05/14 01/23/18 History Levothyroxine Sodium [Synthroid] 125 mcg PO MOTUWETHFRSA 12/05/14 01/23/18 History Multivitamins, Thera [Multivitamin 1 tab PO DAILY 05/24/17 01/23/18 History (formulary)] ALPRAZolam [Xanax] 0.5 - 1 mg PO DAILY PRN 06/12/17 01/23/18 History Atorvastatin Calcium [Lipitor] 40 mg PO HS 06/12/17 01/23/18 History Citalopram Hydrobromide [CeleXA] 20 mg PO DAILY 10/22/17 01/23/18 History Ondansetron HCl [Zofran] 8 mg PO Q6H PRN 11/30/17 01/23/18 History Pantoprazole [Protonix] 40 mg PO DAILY 11/30/17 01/23/18 History Super B Complex 1 tab PO DAILY 11/30/17 01/23/18 History Acetaminophen Tab [Tylenol] 650 mg PO Q4HR PRN tab 12/08/17 01/23/18 Rx Glimepiride [Amaryl] 2 mg PO DAILY #0 12/08/17 01/23/18 Rx metFORMIN HCL 1,000 mg PO BID #0 12/08/17 01/23/18 Rx HYDROcodone/APAP 7.5-325MG [[place] 1 tab PO Q6HR PRN 01/23/18 01/23/18 History 7.5-325] INSULIN LISPRO (HumaLOG) [humaLOG] See Protocol SQ ACHS PRN 01/23/18 01/23/18 History Insulin Detemir [Levemir] 30 unit SQ DIRECTED 01/23/18 01/23/18 History Loratadine [Claritin] 10 mg PO DAILY 01/23/18 01/23/18 History Allergies Allergy/AdvReac Type Severity Reaction Status Date / Time haloperidol [From Haldol] Allergy Unknown Verified 01/23/18 18:06 haloperidol lactate Allergy Unknown Verified 01/23/18 18:06 [From Haldol] Iodinated Contrast- Oral and Allergy Rash/Hives Verified 01/23/18 18:06 IV Dye [Iodinated Contrast Media - IV Dye] ciprofloxacin [From Cipro] AdvReac Heartburn Verified 01/23/18 18:06 steri-strips AdvReac Severe sore Uncoded 11/30/17 12:30 Physical Exam Vitals: Vital Signs Temp Pulse Pulse Resp BP BP Pulse Ox 01/24/18 11:39 97.6 F 76 16 159/70 97 01/24/18 10:00 71 138/70 01/24/18 08:45 71 18 01/24/18 03:36 97.7 F 71 16 139/66 97 01/24/18 03:07 139/77 100 01/24/18 02:00 61 16 132/80 98 01/24/18 01:56 97.6 F 69 19 132/80 100 01/24/18 00:20 69 18 133/70 97 01/23/18 22:57 78 20 120/73 97 01/23/18 22:21 120/73 86 L 01/23/18 21:20 97 01/23/18 16:15 98 F 95 18 129/76 96 Intake and Output 01/23/18 01/24/18 01/24/18 22:59 06:59 14:59 Intake Total 590 Balance 590 Intake: Oral 590 Other: Voiding Method Toilet # Voids 1 Weight 63.503 kg GENERAL EXAM: Pale. Alert, active, comfortable in no apparent distress. HEAD: Normocephalic. EYES: Normal reaction of pupils, equal size. NOSE: Clear with pink turbinates. THROAT: No erythema or exudates. NECK: No masses, no JVD. CHEST: No chest wall deformity. LUNGS: Equal air entry with no crackles, wheeze, rhonchi or dullness. CVS: S1 and S2 normal with no audible murmur, regular rhythm. ABDOMEN: No hepatosplenomegaly, normal bowel sounds, no guarding or rigidity. SPINE: No scoliosis or deformity SKIN: No rashes CENTRAL NERVOUS SYSTEM: No focal deficits, tone is normal in all 4 extremities. EXTREMITIES: There is no peripheral edema. No clubbing, no cyanosis. Peripheral pulses are intact. Results - Laboratory Findings CBC and BMP: 01/24/18 12:26 01/24/18 12:26 PT/INR, D-dimer PT 9.5 sec (9.0-12.0) 01/23/18 17:14 INR 0.9 (<1.2) 01/23/18 17:14 D-Dimer 1.32 mg/L FEU (<0.60) H 01/23/18 17:14 Abnormal lab findings: Abnormal Labs 01/23/18 01/23/18 01/23/18 17:14 17:14 17:14 WBC RBC 2.92 L Hgb 8.0 L D Hct 27.1 L MCHC 29.5 L RDW 23.1 H Neutrophils # Lymphocytes # Lymphocytes # (Manual) 0.95 L Eosinophils # (Manual) 0.76 H Metamyelocytes # (Man) 0.29 H Myelocytes # (Manual) 1.05 H D-Dimer BUN Glucose 317 H POC Glucose (mg/dL) Alkaline Phosphatase 184 H Total Creatine Kinase <20 L Total Protein 5.4 L Albumin 3.0 L Urine Protein Urine Glucose (UA) 01/23/18 01/23/18 01/24/18 17:14 19:38 01:14 WBC RBC Hgb Hct MCHC RDW Neutrophils # Lymphocytes # Lymphocytes # (Manual) Eosinophils # (Manual) Metamyelocytes # (Man) Myelocytes # (Manual) D-Dimer 1.32 H BUN Glucose POC Glucose (mg/dL) 417 H Alkaline Phosphatase Total Creatine Kinase Total Protein Albumin Urine Protein Trace H Urine Glucose (UA) 1+ H 01/24/18 01/24/18 01/24/18 07:09 11:41 12:26 WBC 13.4 H RBC 2.75 L Hgb 7.4 L Hct 25.1 L MCHC 29.6 L RDW 22.7 H Neutrophils # 11.4 H Lymphocytes # 0.9 L Lymphocytes # (Manual) Eosinophils # (Manual) Metamyelocytes # (Man) Myelocytes # (Manual) D-Dimer BUN Glucose POC Glucose (mg/dL) 504 H 462 H Alkaline Phosphatase Total Creatine Kinase Total Protein Albumin Urine Protein Urine Glucose (UA) 01/24/18 12:26 WBC RBC Hgb Hct MCHC RDW Neutrophils # Lymphocytes # Lymphocytes # (Manual) Eosinophils # (Manual) Metamyelocytes # (Man) Myelocytes # (Manual) D-Dimer BUN 18 H Glucose 389 H POC Glucose (mg/dL) Alkaline Phosphatase 160 H Total Creatine Kinase Total Protein 5.0 L Albumin 2.7 L Urine Protein Urine Glucose (UA) - Diagnostic Findings Chest x-ray: image reviewed (No acute pulmonary process) CT scan - chest: image reviewed (Groundglass opacities bibasilar.) Assessment and Plan Assessment: Impression: #1 Acute hypoxemic respiratory failure secondary to suspected pneumonitis. Recovered in maintaining good O2 saturations in the mid 90s on room air. #2 History of B cell non-Hodgkin's lymphoma, stage IV, currently receiving chemotherapy. #3 Acute on chronic anemia. #4 Recent admission for sepsis following chemotherapy. #5 Obstructive sleep apnea. #6 Hypertension. #7 Hyperlipidemia. #8 Hypothyroidism following thyroidectomy. #9 Diabetes mellitus. #10 History of closed head injury. Plan: The patient was seen and evaluated by Dr. Yepez. Chest x-ray, CAT scans and labs were all reviewed. She is quite stable from the pulmonary standpoint. She could be discharged home today on Augmentin 875 twice a day 7 days. Close follow-up with her PCP or call sooner with any recurrence of symptoms or other questions or concerns. I, the cosigning physician, performed a history & physical examination of the patient. Lungs sounds are clear. Maintaining good O2 saturations in the 90s on room air. I discussed the assessment and plan of care with my nurse practitioner, Yumiko Richards. I attest to the above note as dictated by her. Time with Patient: Greater than 30
[2018-01-24 16:55] LABS: Glucose,Whole Blood 204 mg/dL (75-99)
[2018-01-24] MEDS ORDERED: GABAPENTIN 100 MG CAP PO SCH (21:00)
[2018-01-24 21:02] LABS: Glucose,Whole Blood 112 mg/dL (75-99)
--- NOTE | 2018-01-24 22:26 | P.CONS ---
History of Present Illness - Reason for Consult Consult date: 01/24/18 Currently on Chemotherapy for NHL Requesting physician: Dwayne Casas - Chief Complaint Increased blood sugars and SOB - History of Present Illness Ms Ledezma is a 67 yr old white female, initially seen in consult at [facility] on 05/25/17. She had been admitted with lower chest/upper abdominal pain. She was evaluated by internal medicine and cardiology with symptoms resolving spontaneously. She had a CT to evaluate in the outer to rule out aortic aneurysm. This incidentally noted retroperitoneal adenopathy, left greater than right, largest about 4 cm in size. The patient had no obvious symptoms other than mid back pain for the prior 6-8 weeks. However this was not constant. She had a CT of the chest abdomen and pelvis which showed retroperitoneal adenopathy measuring 4.8 x 2.9 cm with some additional upper abdominal adenopathy measuring up to 1.9 cm. No other adenopathy was seen in the thorax or pelvis. CBC was normal other than mild WBC elevation, mostly due to neutropenia. Chem panel was also negative other than creatinine of 1.2. The patient had a retroperitoneal core biopsy on 06/19/17. The biopsy was positive for B-cell non-Hodgkin's lymphoma, CD5 negative. The main differentials included follicular, splenic marginal zone, or LPL. A specimen was sent to [facility] with final diagnosis pending post consultation. the patient was then referred here and seen for her first office visit on . the patient had labs and PET scan ordered. 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 PET scan showed activity in the area of of abdominal adenopathy. No other areas of suspicious activity are noted, except for scattered areas in the liver which could not be well defined. Labs were negative other than elevated Light chain at 10 3 mg/L, versus lambda of 44.7 mg/L, with mild elevation of ratio at 2.35. The patient had an MRI of the liver ordered, which showed multiple suspicious lesions, at least 8 in number. She therefore underwent an ultrasound -guided liver biopsy in early 08/14. This showed a dense lymphocytic infiltrative pattern. However interestingly the majority of the liver cells appear to be reactive T lymphocytes with only a small number of B lymphocytes noted. The pathologic findings are felt to raise the possibility of an inflammatory disorder such as primary biliary cirrhosis. The specimen was been sent to the [facility] for additional consultation, which reported no evidence of malignancy. She had a bone marrow in 09/13 , revealing involvement, and thus stage 4 disease. She was thus placed on observation . She was admitted with severe fatigue and weakness to [facility] in late 10/14. CT scans showed progression in the lymph nodes and liver. She had a liver biopsy on 10/24/17, showing presence of a large and small cell lymphoma population. Double/triple hit testing was negative. she was started on R-CEOP (Adriamycin not use due to diminished ejection fraction) on 11/20/17. She is status post 1 cycle. She was seen in the office on 11/30/17. She denies any fever/chills. she had marked agitation with steroids, which improved with Xanax. She had markedly decreased appetite and progressive weakness. she has been very lethargic, and requiring assistance with even minimal activities. She has been nauseous persistently, with intermittent vomiting. Over the last 1-2 days, she has been having diarrhea with lower abdominal cramping and pain. according to the family , she has been intermittently confused, especially at night. This had improved after stopping the steroids but seemed to have become somewhat more prominent over the last 1-2 days. her blood pressure was quite low in the office, with systolic in the 70 range. She was therefore sent in to the emergency room. The case was discussed in detail with the ER physician. The patient was noted to have tachycardia as well as low blood pressure, that did not respond well to fluids. WBC was 1.6. She was therefore admitted to the ICU, and consult placed for further evaluation and recommendations. CT of the abdomen and pelvis revealed evidence of enteritis, and possibly left hydronephrosis due to renal calculus She is status post two cycles of COEP with neulasta as of 01/10/18. Maricruz presents to the hospital with increased weakness, fatigue, confusion, recurrent falls, and elevated blood glucose levels. Her regimen of chemo includes 5 days of high dose steroids, prednisone, which accounts for her elevated glucose levels. She is feeling a little better today she stated. She is still a poor historian and no family at bedside as she originally stated she was short of breath when she came in but then told me she think she was admitted for a fall or high glucose. She has always seemed to be poor historian at baseline, and her daughter who is also her caregiver is usually with her, although not during todays assessment. CTA chest failed to show any evidence of acute etiology or pulmonary embolism. Past Medical History Past Medical History: Cancer, Heart Failure, Diabetes Mellitus, Hyperlipidemia, Hypertension, Sleep Apnea/CPAP/BIPAP, Thyroid Disorder Additional Past Medical History / Comment(s): B-cell non-Hodgkin's lymphoma stage IV, diabetes mellitus,daughter stated pt had first chemo mon 11-20-17 hypertension, hyperlipidemia, obstructive sleep apnea, hypothyroidism post thyroidectomy, closed head injury in 1988, difficulty with mobility and ambulation the patient has been using a walker. has a history of kidney stones Last Myocardial Infarction Date:: 1988 History of Any Multi-Drug Resistant Organisms: None Reported Past Surgical History: Cholecystectomy, Hysterectomy, Tonsillectomy Additional Past Surgical History / Comment(s): Thyroidectomy, lymph node and liver biopsies. port a cath 11-06-17, right ureteroscopy with lithotripsy 12/2014 Past Anesthesia/Blood Transfusion Reactions: Postoperative Nausea & Vomiting ( PONV) Past Psychological History: Anxiety Smoking Status: Never smoker Past Alcohol Use History: None Reported Past Drug Use History: Marijuana - Past Family History Mother Family Medical History: Cancer Additional Family Medical History / Comment(s): breast CA Father Family Medical History: Cancer Additional Family Medical History / Comment(s): colon CA Sister(s) Family Medical History: Cancer Additional Family Medical History / Comment(s): Skin cancer Medications and Allergies Home Medications Medication Instructions Recorded Confirmed Type Furosemide 20 mg PO BID 09/19/13 01/23/18 History Gabapentin 100 mg PO QAM 09/19/13 01/23/18 History Potassium Chloride [Klor-Con 10] 10 meq PO DAILY 09/19/13 01/23/18 History Gabapentin [Neurontin] 200 mg PO HS 12/05/14 01/23/18 History Levothyroxine Sodium [Synthroid] 125 mcg PO MOTUWETHFRSA 12/05/14 01/23/18 History Multivitamins, Thera [Multivitamin 1 tab PO DAILY 05/24/17 01/23/18 History (formulary)] ALPRAZolam [Xanax] 0.5 - 1 mg PO DAILY PRN 06/12/17 01/23/18 History Atorvastatin Calcium [Lipitor] 40 mg PO HS 06/12/17 01/23/18 History Citalopram Hydrobromide [CeleXA] 20 mg PO DAILY 10/22/17 01/23/18 History Ondansetron HCl [Zofran] 8 mg PO Q6H PRN 11/30/17 01/23/18 History Pantoprazole [Protonix] 40 mg PO DAILY 11/30/17 01/23/18 History Super B Complex 1 tab PO DAILY 11/30/17 01/23/18 History Acetaminophen Tab [Tylenol] 650 mg PO Q4HR PRN tab 12/08/17 01/23/18 Rx Glimepiride [Amaryl] 2 mg PO DAILY #0 12/08/17 01/23/18 Rx metFORMIN HCL 1,000 mg PO BID #0 12/08/17 01/23/18 Rx HYDROcodone/APAP 7.5-325MG [[place] 1 tab PO Q6HR PRN 01/23/18 01/23/18 History 7.5-325] INSULIN LISPRO (HumaLOG) [humaLOG] See Protocol SQ ACHS PRN 01/23/18 01/23/18 History Insulin Detemir [Levemir] 30 unit SQ DIRECTED 01/23/18 01/23/18 History Loratadine [Claritin] 10 mg PO DAILY 01/23/18 01/23/18 History Allergies Allergy/AdvReac Type Severity Reaction Status Date / Time haloperidol [From Haldol] Allergy Unknown Verified 01/23/18 18:06 haloperidol lactate Allergy Unknown Verified 01/23/18 18:06 [From Haldol] Iodinated Contrast- Oral and Allergy Rash/Hives Verified 01/23/18 18:06 IV Dye [Iodinated Contrast Media - IV Dye] ciprofloxacin [From Cipro] AdvReac Heartburn Verified 01/23/18 18:06 steri-strips AdvReac Severe sore Uncoded 11/30/17 12:30 Physical Exam Vitals: Vital Signs Temp Pulse Pulse Resp BP BP Pulse Ox 01/24/18 21:00 98.1 F 74 16 123/67 91 L 01/24/18 11:39 97.6 F 76 16 159/70 97 01/24/18 10:00 71 138/70 01/24/18 08:45 71 18 01/24/18 03:36 97.7 F 71 16 139/66 97 01/24/18 03:07 139/77 100 01/24/18 02:00 61 16 132/80 98 01/24/18 01:56 97.6 F 69 19 132/80 100 01/24/18 00:20 69 18 133/70 97 01/23/18 22:57 78 20 120/73 97 01/23/18 22:21 120/73 86 L Intake and Output 01/24/18 01/24/18 01/24/18 06:59 14:59 22:59 Intake Total 590 200 Balance 590 200 Intake: Intake, IV Titration 200 Amount Sodium Chloride 0.9% 1, 200 000 ml @ 20 mls/hr IV . Q24H [facility] Rx#:[id number] Oral 590 Other: Voiding Method Toilet # Voids 1 3 2 Constitutional General appearance: Present: average body habitus, cooperative, no acute distress - EENT Eyes: Present: EOMI - Respiratory Respiratory: bilateral: CTA - Cardiovascular Heart sounds: normal: S1, S2 - Peripheral edema leg Peripheral Edema: bilateral: 1+, Pitting - Gastrointestinal General gastrointestinal: Present: normal bowel sounds, soft - Integumentary Integumentary: Present: pale - Neurologic Neurologic: Present: CNII-XII intact - Musculoskeletal Musculoskeletal: Present: generalized weakness, strength equal bilaterally - Psychiatric Psychiatric: Present: A&O x's 3, appropriate affect, intact judgment & insight Results CBC & Chem 7: 01/24/18 12:26 01/24/18 12:26 Labs: Abnormal Lab Results - Last 24 Hours (Table) 01/24/18 01/24/18 01/24/18 Range/Units 01:14 07:09 11:41 WBC (3.8-10.6) k/uL RBC (3.80-5.40) m/uL Hgb (11.4-16.0) gm/dL Hct (34.0-46.0) % MCHC (31.0-37.0) g/dL RDW (11.5-15.5) % Neutrophils # (1.3-7.7) k/uL Lymphocytes # (1.0-4.8) k/uL BUN (7-17) mg/dL Glucose (74-99) mg/dL POC Glucose (mg/dL) 417 H 504 H 462 H (75-99) mg/dL Alkaline Phosphatase (38-126) U/L Total Protein (6.3-8.2) g/dL Albumin (3.5-5.0) g/dL 01/24/18 01/24/18 01/24/18 Range/Units 12:26 12:26 16:54 WBC 13.4 H (3.8-10.6) k/uL RBC 2.75 L (3.80-5.40) m/uL Hgb 7.4 L (11.4-16.0) gm/dL Hct 25.1 L (34.0-46.0) % MCHC 29.6 L (31.0-37.0) g/dL RDW 22.7 H (11.5-15.5) % Neutrophils # 11.4 H (1.3-7.7) k/uL Lymphocytes # 0.9 L (1.0-4.8) k/uL BUN 18 H (7-17) mg/dL Glucose 389 H (74-99) mg/dL POC Glucose (mg/dL) 204 H (75-99) mg/dL Alkaline Phosphatase 160 H (38-126) U/L Total Protein 5.0 L (6.3-8.2) g/dL Albumin 2.7 L (3.5-5.0) g/dL 01/24/18 Range/Units 21:01 WBC (3.8-10.6) k/uL RBC (3.80-5.40) m/uL Hgb (11.4-16.0) gm/dL Hct (34.0-46.0) % MCHC (31.0-37.0) g/dL RDW (11.5-15.5) % Neutrophils # (1.3-7.7) k/uL Lymphocytes # (1.0-4.8) k/uL BUN (7-17) mg/dL Glucose (74-99) mg/dL POC Glucose (mg/dL) 112 H (75-99) mg/dL Alkaline Phosphatase (38-126) U/L Total Protein (6.3-8.2) g/dL Albumin (3.5-5.0) g/dL Assessment and Plan Plan: (1) Antineoplastic chemotherapy induced anemia Narrative/Plan: - Hemoglobin 7.4, will recheck in am and if less than 7 transfuse one unit Irradiated PRBC Current Visit: Yes Status: Acute Priority: Medium Code(s): D64.81 - ANEMIA DUE TO ANTINEOPLASTIC CHEMOTHERAPY; T45.1X5A - ADVERSE EFFECT OF ANTINEOPLASTIC AND IMMUNOSUP DRUGS, INIT SNOMED Code(s): 499674117 (2) Neutrophilic leukocytosis Narrative/Plan: - Secondary to GCSF, was given on 01/11/18 - Will continue to monitor CBC as outpatient Current Visit: Yes Status: Acute Priority: Low Code(s): D72.9 - DISORDER OF WHITE BLOOD CELLS, UNSPECIFIED SNOMED Code(s): 804932444 (3) Unsteady gait Narrative/Plan: - Pt did very well with PT/OT, ambulating with wheeled walker - She is able to transport self safely from bed to chair and chair to standing - THis will continue at home with PT/OT - If she continues to fall MRI of the brain is resonable Current Visit: Yes Status: Acute Priority: High Code(s): R26.81 - UNSTEADINESS ON FEET SNOMED Code(s): 87523613 (4) Non Hodgkin's lymphoma Narrative/Plan: - Pt treatment will be adjusted as outpatient per Dr. Gracia at next follow-up after re-assessment (5) Hyperglycemia - Secondary to high dose steroids required with chemotherapy regimen - Per Primary Team
[2018-01-25 02:13] LABS: Glucose,Whole Blood 151 mg/dL (75-99)
[2018-01-25] MEDS: LEVOTHYROXINE 125 MCG TAB PO SCH (05:34)
[2018-01-25 06:45] LABS: Glucose,Whole Blood 142 mg/dL (75-99)
[2018-01-25] MEDS: INSULIN ASPART 100 UNIT/ML 1 ML 10 ML VIAL SQ SCH ×2 (08:06→14:36)
[2018-01-25] MEDS: PANTOPRAZOLE 40 MG TABLET PO SCH (09:15)
[2018-01-25] MEDS: CITALOPRAM HYDROBROMIDE 20 MG TAB PO SCH (09:15)
[2018-01-25] MEDS: GLIMEPIRIDE 2 MG TAB PO SCH (09:15)
[2018-01-25] MEDS: AMOXIC-POT CLAV 875-125MG 1 EACH TAB PO SCH ×2 (09:15→17:39)
[2018-01-25] MEDS: FUROSEMIDE 20 MG TAB PO SCH ×2 (09:16→17:36)
[2018-01-25] MEDS: GABAPENTIN 100 MG CAP PO SCH (09:16)
[2018-01-25] MEDS: POTASSIUM CHLORIDE ER 10 MEQ TAB.ER.PRT PO SCH (09:17)
[2018-01-25] MEDS: metFORMIN 500 MG TAB PO SCH (09:17)
[2018-01-25] MEDS: LORATADINE 10 MG TAB PO SCH (09:17)
[2018-01-25 09:57] LABS: Anisocytosis Moderate; HCT 27.2 % (34.0-46.0); HGB 8.2 gm/dL (11.4-16.0); Hypochromasia Marked; MCH 27.4 pg (25.0-35.0); MCV 91.4 fL (80.0-100.0); Macrocytosis Slight; Mean Platelet Volume 7.5; Platelet Count 491 k/uL (150-450); Poikilocytosis Slight; RBC 2.98 m/uL (3.80-5.40); RDW 23.9 % (11.5-15.5); WBC 11.5 k/uL (3.8-10.6)
[2018-01-25 10:12] VITALS: RESP 18
[2018-01-25 11:13] VITALS: BMI 28.5
[2018-01-25 11:22] LABS: Glucose,Whole Blood 116 mg/dL (75-99)
[2018-01-25 11:52] LABS: Band Neutrophils % 3 %; Eosinophils # (M) 0.35 k/uL (0-0.7); Lymphocytes # (M) 1.96 k/uL (1.0-4.8); Metamyelocytes # (M) 0.23 k/uL (0); Metamyelocytes % 2 %; Monocytes # (M) 0.69 k/uL (0-1.0); Myelocytes # (M) 0.69 k/uL (0); Myelocytes % 6 %; Neutrophils % (M) 65 %; Nucleated Red Blood Cells 0 /100 WBC (0-0); Total Cells Counted 200
[2018-01-25 11:54] LABS: Toxic Granulation Present
--- NOTE | 2018-01-25 11:57 | P.PN ---
Subjective Patient sitting in chair at bedside. States improvement. Patient has been cleared by pulmonology for discharge. Hemoglobin improved to 8.4. Family requesting MRI of the brain for transient confusion. Awaiting for clearance from oncology for discharge Objective - Vital Signs Vital signs: Vital Signs Temp 97.9 F 01/25/18 04:05 Pulse 69 01/25/18 04:05 Resp 18 01/25/18 10:03 BP 128/62 01/25/18 04:05 Pulse Ox 95 01/25/18 04:05 Intake & Output 01/24/18 01/25/18 01/25/18 18:59 06:59 18:59 Intake Total 820 Balance 820 Weight 71 kg 70.89 kg Intake: Intake, IV Titration 400 Amount Sodium Chloride 0.9% 1, 400 000 ml @ 20 mls/hr IV . Q24H [facility] Rx#:[id number] Oral 420 Other: Voiding Method Toilet Toilet Toilet # Voids 3 2 2 # Bowel Movements 0 - Constitutional General appearance: Present: average body habitus - EENT Eyes: Present: PERRLA Ears: bilateral: normal - Neck Neck: Present: normal ROM - Respiratory Respiratory: bilateral: CTA - Cardiovascular Rhythm: regular - Gastrointestinal General gastrointestinal: Present: soft - Integumentary Integumentary: Present: normal - Neurologic Neurologic: Present: CNII-XII intact - Musculoskeletal Musculoskeletal: Present: generalized weakness - Psychiatric Psychiatric: Present: appropriate affect, intact judgment & insight - Labs CBC & Chem 7: 01/25/18 09:04 01/24/18 12:26 Labs: Abnormal Lab Results - Last 24 Hours (Table) 01/24/18 01/24/18 01/24/18 Range/Units 12:26 12:26 16:54 WBC 13.4 H (3.8-10.6) k/uL RBC 2.75 L (3.80-5.40) m/uL Hgb 7.4 L (11.4-16.0) gm/dL Hct 25.1 L (34.0-46.0) % MCHC 29.6 L (31.0-37.0) g/dL RDW 22.7 H (11.5-15.5) % Plt Count (150-450) k/uL Neutrophils # 11.4 H (1.3-7.7) k/uL Lymphocytes # 0.9 L (1.0-4.8) k/uL BUN 18 H (7-17) mg/dL Glucose 389 H (74-99) mg/dL POC Glucose (mg/dL) 204 H (75-99) mg/dL Alkaline Phosphatase 160 H (38-126) U/L Total Protein 5.0 L (6.3-8.2) g/dL Albumin 2.7 L (3.5-5.0) g/dL 01/24/18 01/25/18 01/25/18 Range/Units 21:01 01:55 06:44 WBC (3.8-10.6) k/uL RBC (3.80-5.40) m/uL Hgb (11.4-16.0) gm/dL Hct (34.0-46.0) % MCHC (31.0-37.0) g/dL RDW (11.5-15.5) % Plt Count (150-450) k/uL Neutrophils # (1.3-7.7) k/uL Lymphocytes # (1.0-4.8) k/uL BUN (7-17) mg/dL Glucose (74-99) mg/dL POC Glucose (mg/dL) 112 H 151 H 142 H (75-99) mg/dL Alkaline Phosphatase (38-126) U/L Total Protein (6.3-8.2) g/dL Albumin (3.5-5.0) g/dL 01/25/18 01/25/18 Range/Units 09:04 11:20 WBC 11.5 H (3.8-10.6) k/uL RBC 2.98 L (3.80-5.40) m/uL Hgb 8.2 L (11.4-16.0) gm/dL Hct 27.2 L (34.0-46.0) % MCHC 30.0 L (31.0-37.0) g/dL RDW 23.9 H (11.5-15.5) % Plt Count 491 H (150-450) k/uL Neutrophils # (1.3-7.7) k/uL Lymphocytes # (1.0-4.8) k/uL BUN (7-17) mg/dL Glucose (74-99) mg/dL POC Glucose (mg/dL) 116 H (75-99) mg/dL Alkaline Phosphatase (38-126) U/L Total Protein (6.3-8.2) g/dL Albumin (3.5-5.0) g/dL Assessment and Plan Plan: Assessment Pneumonitis on Augmentin Hypoxia improved Diabetes type 2 Hypertension Hypothyroidism Hyperlipidemia Sleep apnea Non-Hodgkin's lymphoma stage IV on chemo Chronic anemia related to chronic disease chemotherapy Plan MRI of the brain scheduled May be discharged when cleared by oncology
[2018-01-25 11:58] VITALS: BP 144/70; PULSE 82; TEMP 97.8
--- NOTE | 2018-01-25 13:32 | P.PN ---
Subjective Progress Note Date: 01/25/18 Principal diagnosis: Acute hypoxic respiratory failure secondary to suspected pneumonitis. This a very pleasant 67-year-old female patient who follows with Dr. Leonard Solano is her primary care physician. She has a history of diabetes mellitus, hyperlipidemia, hypertension, obstructive sleep apnea utilizing CPAP, hypothyroidism post thyroidectomy, anxiety. She also has a fairly recent diagnosis of B-cell non-Hodgkin's lymphoma stage IV. After her first round of chemotherapy she developed sepsis and was in the intensive care unit we had seen her at that time. She had recovered well. She had a second round of chemotherapy and her oncologist felt her treatment should be changed again. She does have home care and physical therapy. They were checking her oxygen levels which was in the 80s and she was referred to the emergency room for the same. A chest x-ray showed no acute pulmonary process. A CT angiogram revealed some ill defined groundglass opacities bilaterally and there was concern regarding pneumonitis. The patient was admitted for the same. We are seeing her here today in consultation on the regular medical floor. She is awake and alert in no acute distress. She is currently maintaining good O2 saturations in the 90s on room air. She denies any fever, chills or night sweats. No cough or congestion. She is afebrile. Hemodynamically stable. White count 13.4. Hemoglobin 7.4. Creatinine 0.88. The patient is seen again today 01/25/2018 in follow-up on the regular medical floor. She is currently sitting up in a chair at the bedside. She is awake and alert in no acute distress. She is maintaining good O2 saturations in the 90s on room air. Denies any shortness of breath, cough or congestion. White count 11.5. Hemoglobin 8.2. MRI of the brain is pending. Objective - Vital Signs Vital signs: Vital Signs Temp 97.8 F 01/25/18 11:57 Pulse 82 01/25/18 11:57 Resp 18 01/25/18 11:57 BP 144/70 01/25/18 11:57 Pulse Ox 95 01/25/18 11:57 Intake & Output 01/24/18 01/25/18 01/25/18 18:59 06:59 18:59 Intake Total 820 Balance 820 Weight 71 kg 70.89 kg Intake: Intake, IV Titration 400 Amount Sodium Chloride 0.9% 1, 400 000 ml @ 20 mls/hr IV . Q24H [facility] Rx#:[id number] Oral 420 Other: Voiding Method Toilet Toilet Toilet # Voids 3 2 2 # Bowel Movements 0 - Exam GENERAL EXAM: Alert, active, comfortable in no apparent distress. On room air. HEAD: Normocephalic. EYES: Normal reaction of pupils, equal size. NOSE: Clear with pink turbinates. THROAT: No erythema or exudates. NECK: No masses, no JVD. CHEST: No chest wall deformity. LUNGS: Equal air entry with no crackles, wheeze, rhonchi or dullness. CVS: S1 and S2 normal with no audible murmur, regular rhythm. ABDOMEN: No hepatosplenomegaly, normal bowel sounds, no guarding or rigidity. SPINE: No scoliosis or deformity SKIN: No rashes CENTRAL NERVOUS SYSTEM: No focal deficits, tone is normal in all 4 extremities. EXTREMITIES: There is no peripheral edema. No clubbing, no cyanosis. Peripheral pulses are intact. - Labs CBC & Chem 7: 01/25/18 09:04 01/24/18 12:26 Labs: Abnormal Lab Results - Last 24 Hours (Table) 01/24/18 01/24/18 01/25/18 Range/Units 16:54 21:01 01:55 WBC (3.8-10.6) k/uL RBC (3.80-5.40) m/uL Hgb (11.4-16.0) gm/dL Hct (34.0-46.0) % MCHC (31.0-37.0) g/dL RDW (11.5-15.5) % Plt Count (150-450) k/uL Neutrophils # (Manual) (1.3-7.7) k/uL Metamyelocytes # (Man) (0) k/uL Myelocytes # (Manual) (0) k/uL POC Glucose (mg/dL) 204 H 112 H 151 H (75-99) mg/dL 01/25/18 01/25/18 01/25/18 Range/Units 06:44 09:04 11:20 WBC 11.5 H (3.8-10.6) k/uL RBC 2.98 L (3.80-5.40) m/uL Hgb 8.2 L (11.4-16.0) gm/dL Hct 27.2 L (34.0-46.0) % MCHC 30.0 L (31.0-37.0) g/dL RDW 23.9 H (11.5-15.5) % Plt Count 491 H (150-450) k/uL Neutrophils # (Manual) 7.80 H (1.3-7.7) k/uL Metamyelocytes # (Man) 0.23 H (0) k/uL Myelocytes # (Manual) 0.69 H (0) k/uL POC Glucose (mg/dL) 142 H 116 H (75-99) mg/dL Assessment and Plan Assessment: Impression: #1 Acute hypoxemic respiratory failure secondary to suspected pneumonitis. Recovered and maintaining good O2 saturations in the mid 90s on room air. #2 History of B cell non-Hodgkin's lymphoma, stage IV, currently receiving chemotherapy. #3 Acute on chronic anemia. #4 Recent admission for sepsis following chemotherapy. #5 Obstructive sleep apnea. #6 Hypertension. #7 Hyperlipidemia. #8 Hypothyroidism following thyroidectomy. #9 Diabetes mellitus. #10 History of closed head injury. Plan: The patient was seen and evaluated by Dr. Yepez. No pulmonary complaints today. She could be discharged home today on Augmentin 875 twice a day 7 days. Close follow-up with her PCP or call sooner with any recurrence of symptoms or other questions or concerns. I, the cosigning physician, performed a history & physical examination of the patient. Lungs sounds are clear. Maintaining good O2 saturations in the 90s on room air. I discussed the assessment and plan of care with my nurse practitioner, Yumiko Richards. I attest to the above note as dictated by her.
[2018-01-25] MEDS: MULTIVITAMINS, THERA 1 EACH TAB PO SCH (14:37)
--- NOTE | 2018-01-25 16:55 | P.PN ---
Subjective Progress Note Date: 01/25/18 Principal diagnosis: Recurrent Falls,, Confusion patient's family very concerned for her worsening mental status changes and recurrent falls, they state it is just getting worse and worse and are adamant about further evaluation. Objective - Vital Signs Vital signs: Vital Signs Temp 97.8 F 01/25/18 11:57 Pulse 82 01/25/18 11:57 Resp 18 01/25/18 11:57 BP 144/70 01/25/18 11:57 Pulse Ox 95 01/25/18 11:57 Intake & Output 01/24/18 01/25/18 01/25/18 18:59 06:59 18:59 Intake Total 820 Balance 820 Weight 71 kg 70.89 kg Intake: Intake, IV Titration 400 Amount Sodium Chloride 0.9% 1, 400 000 ml @ 20 mls/hr IV . Q24H [facility] Rx#:[id number] Oral 420 Other: Voiding Method Toilet Toilet Toilet # Voids 3 2 2 # Bowel Movements 0 - Exam Constitutional General appearance: Present: average body habitus, cooperative, no acute distress - EENT Eyes: Present: EOMI - Respiratory Respiratory: bilateral: CTA - Cardiovascular Heart sounds: normal: S1, S2 - Peripheral edema leg Peripheral Edema: bilateral: 1+, Pitting - Gastrointestinal General gastrointestinal: Present: normal bowel sounds, soft - Integumentary Integumentary: Present: pale - Neurologic Neurologic: Present: CNII-XII intact - Musculoskeletal Musculoskeletal: Present: generalized weakness, strength equal bilaterally - Psychiatric Psychiatric: Present: A&O x's 3, appropriate affect, intact judgment & insight - Labs CBC & Chem 7: 01/25/18 09:04 01/24/18 12:26 Labs: Abnormal Lab Results - Last 24 Hours (Table) 01/24/18 01/24/18 01/24/18 Range/Units 12:26 12:26 16:54 WBC 13.4 H (3.8-10.6) k/uL RBC 2.75 L (3.80-5.40) m/uL Hgb 7.4 L (11.4-16.0) gm/dL Hct 25.1 L (34.0-46.0) % MCHC 29.6 L (31.0-37.0) g/dL RDW 22.7 H (11.5-15.5) % Plt Count (150-450) k/uL Neutrophils # 11.4 H (1.3-7.7) k/uL Neutrophils # (Manual) (1.3-7.7) k/uL Lymphocytes # 0.9 L (1.0-4.8) k/uL Metamyelocytes # (Man) (0) k/uL Myelocytes # (Manual) (0) k/uL BUN 18 H (7-17) mg/dL Glucose 389 H (74-99) mg/dL POC Glucose (mg/dL) 204 H (75-99) mg/dL Alkaline Phosphatase 160 H (38-126) U/L Total Protein 5.0 L (6.3-8.2) g/dL Albumin 2.7 L (3.5-5.0) g/dL 01/24/18 01/25/18 01/25/18 Range/Units 21:01 01:55 06:44 WBC (3.8-10.6) k/uL RBC (3.80-5.40) m/uL Hgb (11.4-16.0) gm/dL Hct (34.0-46.0) % MCHC (31.0-37.0) g/dL RDW (11.5-15.5) % Plt Count (150-450) k/uL Neutrophils # (1.3-7.7) k/uL Neutrophils # (Manual) (1.3-7.7) k/uL Lymphocytes # (1.0-4.8) k/uL Metamyelocytes # (Man) (0) k/uL Myelocytes # (Manual) (0) k/uL BUN (7-17) mg/dL Glucose (74-99) mg/dL POC Glucose (mg/dL) 112 H 151 H 142 H (75-99) mg/dL Alkaline Phosphatase (38-126) U/L Total Protein (6.3-8.2) g/dL Albumin (3.5-5.0) g/dL 01/25/18 01/25/18 Range/Units 09:04 11:20 WBC 11.5 H (3.8-10.6) k/uL RBC 2.98 L (3.80-5.40) m/uL Hgb 8.2 L (11.4-16.0) gm/dL Hct 27.2 L (34.0-46.0) % MCHC 30.0 L (31.0-37.0) g/dL RDW 23.9 H (11.5-15.5) % Plt Count 491 H (150-450) k/uL Neutrophils # (1.3-7.7) k/uL Neutrophils # (Manual) 7.80 H (1.3-7.7) k/uL Lymphocytes # (1.0-4.8) k/uL Metamyelocytes # (Man) 0.23 H (0) k/uL Myelocytes # (Manual) 0.69 H (0) k/uL BUN (7-17) mg/dL Glucose (74-99) mg/dL POC Glucose (mg/dL) 116 H (75-99) mg/dL Alkaline Phosphatase (38-126) U/L Total Protein (6.3-8.2) g/dL Albumin (3.5-5.0) g/dL Assessment and Plan Plan: (1) Antineoplastic chemotherapy induced anemia Narrative/Plan: - Hemoglobin 7.4, will recheck in am and if less than 7 transfuse one unit Irradiated PRBC Current Visit: Yes Status: Acute Priority: Medium Code(s): D64.81 - ANEMIA DUE TO ANTINEOPLASTIC CHEMOTHERAPY; T45.1X5A - ADVERSE EFFECT OF ANTINEOPLASTIC AND IMMUNOSUP DRUGS, INIT SNOMED Code(s): 689707474 (2) Neutrophilic leukocytosis Narrative/Plan: - Secondary to GCSF, was given on 01/11/18 - Will continue to monitor CBC as outpatient Current Visit: Yes Status: Acute Priority: Low Code(s): D72.9 - DISORDER OF WHITE BLOOD CELLS, UNSPECIFIED SNOMED Code(s): 020149703 (3) Unsteady gait Narrative/Plan: - Pt did very well with PT/OT, ambulating with wheeled walker - She is able to transport self safely from bed to chair and chair to standing - THis will continue at home with PT/OT - If she continues to fall MRI of the brain is resonable Current Visit: Yes Status: Acute Priority: High Code(s): R26.81 - UNSTEADINESS ON FEET SNOMED Code(s): 12849226 (4) Non Hodgkin's lymphoma Narrative/Plan: - Pt treatment will be adjusted as outpatient per Dr. Gracia at next follow-up after re-assessment (5) Hyperglycemia - Secondary to high dose steroids required with chemotherapy regimen - Per Primary Team Plan: - Await MRI Brain then ok for discharge from onc standpoint - HOME PT please
--- NOTE | 2018-01-25 17:40 | MR ---
EXAMINATION TYPE: MR brain wo/w con DATE OF EXAM: 01/25/2018 COMPARISON: 03/24/2011 HISTORY: Increased Confusion, Recurrent Falls, Hx of CA TECHNIQUE: Multiplanar, multisequence images of the brain and brainstem is performed without and with IV contras t, utilizing 7.5 mL intravenous Gadavist . FINDINGS: On the T2 and FLAIR images there is increased signal in the left frontal lobe white matter and cortex consistent with old cortical infarct. There is similar cortical increased signal in the an terior left temporal lobe. There is increased signal in the periventricular white matter with numerou s areas that measure up to 1 cm. These are coalescent. The brainstem is intact. Cerebellum is intact. There is no midline shift. There is no sign of intracranial hemorrhage. There is cerebral cortical a trophy. There is thinning of the corpus callosum. Sella turcica appears normal. 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 White matter changes consistent with chr onic small vessel ischemia. There is progression of the white matter disease compared to old exam. Th ere is slight progression of the left frontal infarct. There is no change in left temporal lobe corti naz infarct.
== END 2018-01-25 17:47 | disposition home health service (06) | DRG 193 ==
LOC: EC 16:00 → 3NMEDONC 01-24 00:47
PROVIDERS: ADMIT Family Medicine; ATTEND Family Medicine
DX: J18.9 Pneumonia, unspecified organism (principal); J96.01 Acute respiratory failure with hypoxia; C85.90 Non-Hodgkin lymphoma, unspecified, unspecified site; D64.81 Anemia due to antineoplastic chemotherapy; D63.8 Anemia in other chronic diseases classified elsewhere; D70.9 Neutropenia, unspecified; E11.65 Type 2 diabetes mellitus with hyperglycemia; E78.5 Hyperlipidemia, unspecified; E89.0 Postprocedural hypothyroidism; F41.9 Anxiety disorder, unspecified; G47.33 Obstructive sleep apnea (adult) (pediatric); I11.0 Hypertensive heart disease with heart failure; I25.2 Old myocardial infarction; I50.9 Heart failure, unspecified; K52.9 Noninfective gastroenteritis and colitis, unspecified; R29.6 Repeated falls; T38.0X5A Adverse effect of glucocorticoids and synthetic analogues, initial encounter; T45.1X5A Adverse effect of antineoplastic and immunosuppressive drugs, initial encounter; Z79.4 Long term (current) use of insulin; Z79.899 Other long term (current) drug therapy; Z80.0 Family history of malignant neoplasm of digestive organs; Z80.3 Family history of malignant neoplasm of breast; Z80.8 Family history of malignant neoplasm of other organs or systems; Z87.442 Personal history of urinary calculi; Z90.710 Acquired absence of both cervix and uterus; Z88.5 Allergy status to narcotic agent; Z88.8 Allergy status to other drugs, medicaments and biological substances; Z88.1 Allergy status to other antibiotic agents; Z91.041 Radiographic dye allergy status; Z79.890 Hormone replacement therapy
CPT/HCPCS: 36415; 70553; 71046; 71275; 80053; 81003; 82550; 82553; 84484; 85025; 85379; 85610; 85730; 93005; 96374; 96375; 99285

== ENCOUNTER → 2018-02-12 | Outpatient (CLI) | payer MEDICARE, OTHER | END | disposition home or self-care (01) | LOC: RADCTMAIN 11:53 | PROVIDERS: ATTEND Internal Medicine Hematology & Oncology | DX: Z53.9 Procedure and treatment not carried out, unspecified reason (principal) ==

== ENCOUNTER 2018-03-09 19:35 | Emergency (ER) | payer MEDICARE, OTHER ==
[2018-03-09] MEDS ORDERED: ACETAMINOPHEN TAB 500 MG TAB PO STA (20:29)
[2018-03-09] MEDS: SODIUM CHLORIDE 0.9% 500 ML 500 ML IV SCH ×2 (21:17→22:43)
[2018-03-09 21:28] LABS: Anisocytosis Slight; Basophils # (A) 0.1 k/uL (0-0.2); Basophils % (A) 0 %; Eosinophils # (A) 0.3 k/uL (0-0.7); Eosinophils % (A) 1 %; HCT 33.8 % (34.0-46.0); HGB 10.9 gm/dL (11.4-16.0); Hypochromasia Slight; Lymphocytes # (A) 0.1 k/uL (1.0-4.8); Lymphocytes % (A) 0 %; MCHC 32.1 g/dL (31.0-37.0); MCV 90.3 fL (80.0-100.0); Monocytes # (A) 0.7 k/uL (0-1.0); Monocytes % (A) 2 %; Neutrophils # (A) 36.9 k/uL (1.3-7.7); Neutrophils % (A) 97 %; Platelet Count 356 k/uL (150-450); RBC 3.74 m/uL (3.80-5.40); RDW 17.4 % (11.5-15.5); WBC 38.2 k/uL (3.8-10.6)
[2018-03-09 21:36] LABS: Appearance,Urine Clear (Clear); Bacteria,Urine Many /hpf; Bilirubin,Urine Negative (Negative); Blood,Urine Negative (Negative); Color,Urine Yellow; Glucose,Urine (UA) Trace (Negative); Hyaline Casts,Urine 1 /lpf (0-2); Ketones,Urine Negative (Negative); Leukocyte Esterase,Urine Small (Negative); Nitrite,Urine Negative (Negative); Protein,Urine 1+ (Negative); RBC,Urine 1 /hpf (0-5); Specific Gravity,Urine 1.012 (1.001-1.035); Squamous Epithelial Cell,Urine 1 /hpf (0-4); Urobilinogen,Urine <2.0 mg/dL (<2.0); WBC,Urine 19 /hpf (0-5)
[2018-03-09 21:38] LABS: Albumin 3.7 g/dL (3.5-5.0); Anion Gap 10 mmol/L; Blood Urea Nitrogen 17 mg/dL (7-17); Calcium 9.8 mg/dL (8.4-10.2); Carbon Dioxide 33 mmol/L (22-30); Chloride 95 mmol/L (98-107); Glucose 254 mg/dL (74-99); Sodium 138 mmol/L (137-145); Total Protein 6.3 g/dL (6.3-8.2)
[2018-03-09 21:44] LABS: INR 0.9 (<1.2); Prothrombin Time 9.6 sec (9.0-12.0)
[2018-03-09 21:45] LABS: ALT 26 U/L (9-52); AST 35 U/L (14-36); Potassium 3.3 mmol/L (3.5-5.1)
--- NOTE | 2018-03-09 21:45 | XR ---
EXAMINATION TYPE: XR chest 2V DATE OF EXAM: 03/09/2018 COMPARISON: 01/23/2018 INDICATION: Fever TECHNIQUE: Frontal and lateral views of the chest are obtained. FINDINGS: The heart size is normal. The pulmonary vasculature is normal. Small granuloma may be within the left midlung appears stable. Port is present on the right with the tip in the superior vena cava region. EKG leads overlie the chest.. IMPRESSION: 1. No acute pulmonary process. 2. Findings are stable over the interval.
[2018-03-09 21:46] LABS: Alkaline Phosphatase 217 U/L (38-126)
[2018-03-09 21:51] LABS: Partial Thromboplastin Time 20.9 sec (22.0-30.0)
[2018-03-09 22:07] VITALS: BP 138/76; PULSE 98; RESP 16
[2018-03-09] MEDS ORDERED: CEPHALEXIN 500MG STARTER PACK 4 CAP BTL PO STA (22:24)
--- NOTE | 2018-03-09 22:26 | ED ---
Fever HPI - General Chief Complaint: Fever Stated Complaint: Fever, shingles Time Seen by Provider: 03/09/18 20:11 Source: patient Mode of arrival: ambulatory Limitations: no limitations - History of Present Illness Initial Comments: 67-year-old female patient with past medical history significant for non-Hodgkin 's lymphoma currently receiving chemotherapy with last doses on Monday and Monday presents to the emergency department today for evaluation of fever. Patient states fever was as high as 101.6F at home. States that she feels generally rundown and achy. Patient was diagnosed with a shingles infection to the left low back region yesterday. She was started on acyclovir. Patient did receive a Neupogen injection on Monday. She denies any nasal congestion, cough, nausea, vomiting, abdominal pain, diarrhea, wounds, hematuria, dysuria, urinary frequency, urinary urgency. Patient denies any recent shortness breath , chest pain, back pain, numbness, tingling, dizziness, weakness, headache, visual changes, or any other complaints. - Related Data Home Medications Medication Instructions Recorded Confirmed Furosemide 20 mg PO BID 09/19/13 03/09/18 Gabapentin 100 mg PO QAM 09/19/13 03/09/18 Potassium Chloride [Klor-Con 10] 10 meq PO DAILY 09/19/13 03/09/18 Gabapentin [Neurontin] 200 mg PO HS 12/05/14 03/09/18 Levothyroxine Sodium [Synthroid] 125 mcg PO [id number] 12/05/14 03/09/18 Multivitamins, Thera [Multivitamin 1 tab PO DAILY 05/24/17 03/09/18 (formulary)] Atorvastatin Calcium [Lipitor] 40 mg PO HS 06/12/17 03/09/18 Citalopram Hydrobromide [CeleXA] 20 mg PO DAILY 10/22/17 03/09/18 Ondansetron HCl [Zofran] 8 mg PO Q6H PRN 11/30/17 03/09/18 Super B Complex 1 tab PO DAILY 11/30/17 03/09/18 INSULIN LISPRO (HumaLOG) [humaLOG] See Protocol SQ ACHS PRN 01/23/18 03/09/18 Loratadine [Claritin] 10 mg PO DAILY 01/23/18 03/09/18 Acyclovir 400 mg PO TID 03/09/18 03/09/18 Previous Rx's Medication Instructions Recorded Acetaminophen Tab [Tylenol] 650 mg PO Q4HR PRN tab 12/08/17 metFORMIN HCL 1,000 mg PO BID #0 12/08/17 Cephalexin [Keflex] 500 mg PO Q6H #28 cap 03/09/18 Allergies Allergy/AdvReac Type Severity Reaction Status Date / Time haloperidol [From Haldol] Allergy Unknown Verified 03/09/18 20:51 haloperidol lactate Allergy Unknown Verified 03/09/18 20:51 [From Haldol] Iodinated Contrast- Oral and Allergy Rash/Hives Verified 03/09/18 20:51 IV Dye [Iodinated Contrast Media - IV Dye] ciprofloxacin [From Cipro] AdvReac Heartburn Verified 03/09/18 20:51 steri-strips AdvReac Severe sore Uncoded 03/09/18 19:55 Review of Systems ROS Statement: Those systems with pertinent positive or pertinent negative responses have been documented in the HPI. ROS Other: All systems not noted in ROS Statement are negative. Past Medical History Past Medical History: Cancer, Heart Failure, Diabetes Mellitus, Hyperlipidemia, Hypertension, Sleep Apnea/CPAP/BIPAP, Thyroid Disorder Additional Past Medical History / Comment(s): B-cell non-Hodgkin's lymphoma stage IV, diabetes mellitus,daughter stated pt had first chemo mon 11-20-17 hypertension, hyperlipidemia, obstructive sleep apnea, hypothyroidism post thyroidectomy, closed head injury in 1988, difficulty with mobility and ambulation the patient has been using a walker. has a history of kidney stones Last Myocardial Infarction Date:: 1988 History of Any Multi-Drug Resistant Organisms: None Reported Past Surgical History: Cholecystectomy, Hysterectomy, Tonsillectomy Additional Past Surgical History / Comment(s): Thyroidectomy, lymph node and liver biopsies. port a cath 11-06-17, right ureteroscopy with lithotripsy 12/2014 Past Anesthesia/Blood Transfusion Reactions: Postoperative Nausea & Vomiting ( PONV) Past Psychological History: Anxiety Smoking Status: Never smoker Past Alcohol Use History: None Reported Past Drug Use History: None Reported, Marijuana - Past Family History Mother Family Medical History: Cancer Additional Family Medical History / Comment(s): breast CA Father Family Medical History: Cancer Additional Family Medical History / Comment(s): colon CA Sister(s) Family Medical History: Cancer Additional Family Medical History / Comment(s): Skin cancer General Exam Limitations: no limitations General appearance: alert, in no apparent distress, other (This is a well- developed, well-nourished adult female patient in no acute distress. Vital signs upon presentation are temperature 101.7F, pulse 112, respirations 18, blood pressure 155/86, pulse ox 95% on room air.) Eye exam: Present: normal appearance, PERRL, EOMI. Absent: scleral icterus, conjunctival injection, periorbital swelling ENT exam: Present: normal exam, normal oropharynx, mucous membranes moist Respiratory exam: Present: normal lung sounds bilaterally. Absent: respiratory distress, wheezes, rales, rhonchi, stridor Cardiovascular Exam: Present: regular rate, normal rhythm, normal heart sounds. Absent: systolic murmur, diastolic murmur, rubs, gallop, clicks Neurological exam: Present: alert, oriented X3, CN II-XII intact Psychiatric exam: Present: normal affect, normal mood Skin exam: Present: warm, dry, intact, normal color, rash (Patient has erythematous vesicular rash noted to the left low back right upper inner onto the left side of her abdomen.) Course Vital Signs 03/09/18 03/09/18 03/09/18 19:55 22:02 22:44 Temperature 101.7 F H 100.2 F H 98.4 F Pulse Rate 112 H 98 Respiratory 18 16 Rate Blood Pressure 155/86 138/76 O2 Sat by Pulse 95 95 Oximetry Medical Decision Making - Medical Decision Making 67-year-old female patient presents to the emergency department today for evaluation of fever. Physical exam is relatively unremarkable other than having a rash consistent with shingles over the left low back. Labs reviewed and did reveal elevated white blood cell count at 38.2 with an actual count at 36.9 which is consistent with recent Neupogen injection. Other labs reveal decreased potassium at 3.3, blood sugar at 254, urinalysis shows 1+ protein, trace glucose, small leukocyte esterase, 19 white blood cells, many urine bacteria. Influenza testing is negative. Chest x-ray showed no acute cardiopulmonary process. Given findings patient's fever is most likely related to mild urinary tract infection in addition to shingles infection. We did treat with Tylenol and IV fluids, she does report improvement of her symptoms upon reevaluation. Potassium was replaced. We'll discharge with a prescription for Keflex. She started taking acyclovir for the shingles infection yesterday. She is instructed to call her oncologist inform them of her emergency visit. She is instructed to follow-up as soon as possible. Return parameters were discussed in detail. She verbalizes understanding and agrees with this plan. - Lab Data Result diagrams: 03/09/18 21:08 03/09/18 21:08 Lab Results 03/09/18 03/09/18 03/09/18 Range/Units 21:08 21:08 21:08 WBC 38.2 H (3.8-10.6) k/uL RBC 3.74 L (3.80-5.40) m/uL Hgb 10.9 L (11.4-16.0) gm/dL Hct 33.8 L (34.0-46.0) % MCV 90.3 (80.0-100.0) fL MCH 29.0 (25.0-35.0) pg MCHC 32.1 (31.0-37.0) g/dL RDW 17.4 H (11.5-15.5) % Plt Count 356 (150-450) k/uL Neutrophils % 97 % Lymphocytes % 0 % Monocytes % 2 % Eosinophils % 1 % Basophils % 0 % Neutrophils # 36.9 H (1.3-7.7) k/uL Lymphocytes # 0.1 L (1.0-4.8) k/uL Monocytes # 0.7 (0-1.0) k/uL Eosinophils # 0.3 (0-0.7) k/uL Basophils # 0.1 (0-0.2) k/uL Hypochromasia Slight Anisocytosis Slight PT (9.0-12.0) sec INR (<1.2) APTT (22.0-30.0) sec Sodium 138 (137-145) mmol/L Potassium 3.3 L (3.5-5.1) mmol/L Chloride 95 L (98-107) mmol/L Carbon Dioxide 33 H (22-30) mmol/L Anion Gap 10 mmol/L BUN 17 (7-17) mg/dL Creatinine 0.70 (0.52-1.04) mg/dL Est GFR (CKD-EPI)AfAm >90 (>60 ml/min/1.73 sqM) Est GFR (CKD-EPI)NonAf >90 (>60 ml/min/1.73 sqM) Glucose 254 H (74-99) mg/dL Plasma Lactic Acid Tim (0.7-2.0) mmol/L Calcium 9.8 (8.4-10.2) mg/dL Total Bilirubin 1.0 (0.2-1.3) mg/dL AST 35 (14-36) U/L ALT 26 (9-52) U/L Alkaline Phosphatase 217 H (38-126) U/L Total Protein 6.3 (6.3-8.2) g/dL Albumin 3.7 (3.5-5.0) g/dL Urine Color Urine Appearance (Clear) Urine pH (5.0-8.0) Ur Specific Kemp (1.001-1.035) Urine Protein (Negative) Urine Glucose (UA) (Negative) Urine Ketones (Negative) Urine Blood (Negative) Urine Nitrite (Negative) Urine Bilirubin (Negative) Urine Urobilinogen (<2.0) mg/dL Ur Leukocyte Esterase (Negative) Urine RBC (0-5) /hpf Urine WBC (0-5) /hpf Ur Squamous Epith Cells (0-4) /hpf Urine Bacteria (None) /hpf Hyaline Casts (0-2) /lpf Influenza Type A RNA Not Detected (Not Detectd) Influenza Type B (PCR) Not Detected (Not Detectd) 03/09/18 03/09/18 03/09/18 Range/Units 21:08 21:08 21:08 WBC (3.8-10.6) k/uL RBC (3.80-5.40) m/uL Hgb (11.4-16.0) gm/dL Hct (34.0-46.0) % MCV (80.0-100.0) fL MCH (25.0-35.0) pg MCHC (31.0-37.0) g/dL RDW (11.5-15.5) % Plt Count (150-450) k/uL Neutrophils % % Lymphocytes % % Monocytes % % Eosinophils % % Basophils % % Neutrophils # (1.3-7.7) k/uL Lymphocytes # (1.0-4.8) k/uL Monocytes # (0-1.0) k/uL Eosinophils # (0-0.7) k/uL Basophils # (0-0.2) k/uL Hypochromasia Anisocytosis PT 9.6 (9.0-12.0) sec INR 0.9 (<1.2) APTT 20.9 L (22.0-30.0) sec Sodium (137-145) mmol/L Potassium (3.5-5.1) mmol/L Chloride (98-107) mmol/L Carbon Dioxide (22-30) mmol/L Anion Gap mmol/L BUN (7-17) mg/dL Creatinine (0.52-1.04) mg/dL Est GFR (CKD-EPI)AfAm (>60 ml/min/1.73 sqM) Est GFR (CKD-EPI)NonAf (>60 ml/min/1.73 sqM) Glucose (74-99) mg/dL Plasma Lactic Acid Tim 1.7 (0.7-2.0) mmol/L Calcium (8.4-10.2) mg/dL Total Bilirubin (0.2-1.3) mg/dL AST (14-36) U/L ALT (9-52) U/L Alkaline Phosphatase (38-126) U/L Total Protein (6.3-8.2) g/dL Albumin (3.5-5.0) g/dL Urine Color Yellow Urine Appearance Clear (Clear) Urine pH 6.0 (5.0-8.0) Ur Specific Kemp 1.012 (1.001-1.035) Urine Protein 1+ H (Negative) Urine Glucose (UA) Trace H (Negative) Urine Ketones Negative (Negative) Urine Blood Negative (Negative) Urine Nitrite Negative (Negative) Urine Bilirubin Negative (Negative) Urine Urobilinogen <2.0 (<2.0) mg/dL Ur Leukocyte Esterase Small H (Negative) Urine RBC 1 (0-5) /hpf Urine WBC 19 H (0-5) /hpf Ur Squamous Epith Cells 1 (0-4) /hpf Urine Bacteria Many H (None) /hpf Hyaline Casts 1 (0-2) /lpf Influenza Type A RNA (Not Detectd) Influenza Type B (PCR) (Not Detectd) - Radiology Data Radiology results: report reviewed, image reviewed Two-view x-ray of the chest is obtained. Report is reviewed in its entirety. Impression by Dr. Jensen shows no acute pulmonary process. Findings are stable over the interval. Disposition Clinical Impression: Shingles, Urinary tract infection Disposition: HOME SELF-CARE Condition: Good Instructions: Urinary Tract Infection in Women (ED), Shingles (ED), Fever in Adults (ED) Additional Instructions: Complete antibiotic prescription in full. Follow up with oncologist for recheck as soon as possible. Return immediately for any new, worsening, or concerning symptoms. Prescriptions: Cephalexin [Keflex] 500 mg PO Q6H #28 cap Is patient prescribed a controlled substance at d/c from ED?: No Referrals: Leonard Solano MD [Primary Care Provider] - 1-2 days Time of Disposition: 22:26
[2018-03-09] MEDS ORDERED: POTASSIUM CHLORIDE ER 20 MEQ TAB.ER PO STA (22:32)
[2018-03-09 22:50] VITALS: TEMP 98.4
== END 2018-03-09 22:50 | disposition home or self-care (01) ==
LOC: EC 19:35
DX: N39.0 Urinary tract infection, site not specified (principal); B02.9 Zoster without complications; I45.10 Unspecified right bundle-branch block; D72.829 Elevated white blood cell count, unspecified; E87.6 Hypokalemia; E78.5 Hyperlipidemia, unspecified; I11.0 Hypertensive heart disease with heart failure; I50.9 Heart failure, unspecified; E11.9 Type 2 diabetes mellitus without complications; G47.33 Obstructive sleep apnea (adult) (pediatric); E89.0 Postprocedural hypothyroidism; Z88.1 Allergy status to other antibiotic agents; Z88.8 Allergy status to other drugs, medicaments and biological substances; Z91.041 Radiographic dye allergy status; Z91.048 Other nonmedicinal substance allergy status; Z79.4 Long term (current) use of insulin; Z79.899 Other long term (current) drug therapy; Z85.72 Personal history of non-Hodgkin lymphomas; Z92.21 Personal history of antineoplastic chemotherapy
CPT/HCPCS: 36415; 71046; 80053; 81001; 83605; 85025; 85610; 85730; 87040; 87077; 87086; 87186; 87502; 93005; 96360; 99284

== ENCOUNTER → 2018-03-15 | Outpatient (CLI) | payer MEDICARE, OTHER ==
--- NOTE | 2018-03-15 13:34 | CT ---
EXAMINATION TYPE: CT ChestAbdPelvis w con DATE OF EXAM: 03/15/2018 COMPARISON: 01/23/2018, 11/30/2017, 10/22/2017 HISTORY: 67-year-old female follow-up Non-Hodgkin's Lymphoma TECHNIQUE: Contiguous axial scanning of the chest, abdomen, and pelvis performed with IV Contrast, pa tient injected with 80 mL of Isovue 300. Delayed images through the kidneys were obtained. Coronal/sa gittal reconstructions performed. CT DLP: 1715 mGycm Automated exposure control for dose reduction was used. FINDINGS: Chest: Right anterior chest wall injection port with catheter tip at the mid SVC. Heart upper limits of normal in size without pericardial effusion. Ascending aorta ectatic at 3.6 cm. Conventional arch vessel branching anatomy. The previous left axillary lymph node seen on 10/22/2017 has resolved, similar to 01/23/2018. No thora cic lymphadenopathy by CT size criteria. Calcified granuloma redemonstrated in the posterior left midlung. Calcified left hilar and left tracheobronchial angle lymph nodes compatible with prior granulomatous disease. Some focal patchy subpleural opacity posterior left lower lobe has decreased from 01/23/2018 and coul d represent some residual scarring. The multifocal groundglass seen at that time has resolved. No new consolidation or pleural effusion. ABDOMEN: Small hiatal hernia. Segment 4A/4B left liver lobe lesion has decreased in size currently measuring 3.4 x 1.9 cm versus 5. 1 x 3.2 cm on 11/30/2017 and nearly 6.0 x 4.3 cm on 10/22/2017. Other hypodensities also show some impr ovement. 5-10 cysts subcentimeter hypodense lesions remain Portal venous system is patent. No biliary ductal dilatation. Adrenal glands, spleen, and pancreas are no gross abnormality. Retroperitoneal lymphadenopathy in the retrocaval region measures 1.2 cm short axis versus 1.0 cm on 11/30/2017 and 1.3 cm on 10/22/2017. Left para-aortic lymphadenopathy measures up to 3.1 x 1.2 cm versus 5.1 x 3.1 cm on 11/30/2017 and 5.9 x 3.7 cm on 10/22/2017. Some upper abdominal lymph nodes suggested in the gastrohepatic and franca hepatic region seen on 10/22 have resolved. Nodularity along the superior margin of the third portion of the duodenum suspected to represent a du odenal diverticulum. Axial image 66. Cortical defects lateral upper pole right kidney and 1.4 cm cyst lateral left kidney are unchanged. R etroaortic left renal vein incidentally noted. Normal appendix. Oral contrast progressed to the rectum. Diffuse colonic diverticulosis without peric olonic inflammatory change. No dilated small bowel, free fluid, or free air. Pelvis: Bladder not distended. Multiple pelvic phleboliths. Bulging laxity of the levator ani muscles suggest ing pelvic floor relaxation. Uterus surgically absent. Ovaries not clearly identified. No pelvic lymp hadenopathy seen. Bones: Degenerative changes of the hips and SI joints and throughout the mid to lower lumbar spine. Endplate spondylosis mid to lower thoracic spine. No osseous destructive process seen. Grade 1 retrolisthesis at L2-L3 and L3-L4 and grade 1 anterolisthesis at L4-L5. IMPRESSION: 1. TREATMENT RESPONSE. RESIDUAL LEFT PARA-AORTIC RETROPERITONEAL JOHN MASS CURRENTLY MEASURES 3.1 X 1.2 CM (VERSUS 5.1 X 3.1 CM AND 5.9 X 3.7 CM ON 11/30/2017 AND 10/22/2017, RESPECTIVELY). 2. HOWEVER, A SINGLE RETROCAVAL LYMPH NODE IS STABLE TO MINIMALLY LARGER MEASURING 1.2 CM SHORT AXIS VERSUS 1.0 CM ON 11/30/2017 AND 1.3 CM ON 10/22/2017. 3. THE OTHER PREVIOUSLY ENLARGED UPPER ABDOMINAL AND LEFT AXILLARY LYMPH NODES HAVE RESOLVED. 4. HEPATIC LESIONS CONTINUE TO DECREASE IN SIZE , LARGEST IN SEGMENT 4A/4B MEASURES 3.4 X 1.9 CM (DONELL LEONILA 5.1 X 3.2 CM ON 11/30/2017 AND 6.0 X 4.3 CM ON 10/22/2017). 5. THE PREVIOUS GROUNDGLASS OPACITIES SEEN IN THE LUNGS ON 01/23/2018 HAVE RESOLVED. 6. PRIOR GRANULOMATOUS DISEASE, SMALL HIATAL HERNIA, AND DIFFUSE COLONIC DIVERTICULOSIS.
== END | disposition home or self-care (01) ==
LOC: RADCTMAIN 10:58
PROVIDERS: ATTEND Internal Medicine Hematology & Oncology
DX: C85.93 Non-Hodgkin lymphoma, unspecified, intra-abdominal lymph nodes (principal); D71 Functional disorders of polymorphonuclear neutrophils; R91.8 Other nonspecific abnormal finding of lung field; K76.9 Liver disease, unspecified; K44.9 Diaphragmatic hernia without obstruction or gangrene; K57.30 Diverticulosis of large intestine without perforation or abscess without bleeding
CPT/HCPCS: 82565; 84520; 71260; 74177; 36415; J1642; Q9967

== ENCOUNTER 2018-03-30 19:09 | Emergency (ER) | payer MEDICARE, OTHER ==
[2018-03-30 19:56] VITALS: RESP 16
[2018-03-30 20:31] LABS: Appearance,Urine Clear (Clear); Bilirubin,Urine Negative (Negative); Blood,Urine Negative (Negative); Color,Urine Yellow; Glucose,Urine (UA) 4+ (Negative); Ketones,Urine Negative (Negative); Leukocyte Esterase,Urine Negative (Negative); Nitrite,Urine Negative (Negative); Protein,Urine Trace (Negative); Specific Gravity,Urine 1.034 (1.001-1.035)
[2018-03-30 20:39] LABS: Anisocytosis Slight; Basophils % (A) 0 %; Eosinophils # (A) 0.1 k/uL (0-0.7); Eosinophils % (A) 1 %; HGB 11.3 gm/dL (11.4-16.0); Hypochromasia Moderate; Lymphocytes # (A) 0.3 k/uL (1.0-4.8); Lymphocytes % (A) 4 %; MCH 29.5 pg (25.0-35.0); MCHC 31.5 g/dL (31.0-37.0); MCV 93.6 fL (80.0-100.0); Mean Platelet Volume 6.7; Monocytes # (A) 0.5 k/uL (0-1.0); Monocytes % (A) 6 %; Neutrophils # (A) 7.4 k/uL (1.3-7.7); Neutrophils % (A) 87 %; Platelet Count 416 k/uL (150-450); RBC 3.84 m/uL (3.80-5.40); RDW 17.8 % (11.5-15.5); WBC 8.5 k/uL (3.8-10.6)
[2018-03-30 20:40] LABS: ALT 21 U/L (9-52); AST 15 U/L (14-36); Albumin 3.9 g/dL (3.5-5.0); Alkaline Phosphatase 195 U/L (38-126); Amylase 44 U/L (30-110); Anion Gap 9 mmol/L; Blood Urea Nitrogen 12 mg/dL (7-17); Calcium 10.5 mg/dL (8.4-10.2); Carbon Dioxide 32 mmol/L (22-30); Chloride 98 mmol/L (98-107); Glucose 399 mg/dL (74-99); Lipase 159 U/L (23-300); Potassium 3.8 mmol/L (3.5-5.1); Sodium 139 mmol/L (137-145); Total Bilirubin 0.5 mg/dL (0.2-1.3); Total Protein 6.7 g/dL (6.3-8.2)
--- NOTE | 2018-03-30 21:34 | ED ---
General Adult HPI - General Source: patient Mode of arrival: ambulatory Limitations: no limitations <Meeta Garcia - Last Filed: 03/31/18 01:19> <Gt Cisneros - Last Filed: 03/31/18 08:35> - General Chief complaint: Recheck/Abnormal Lab/Rx Stated complaint: left side swelling, Ca patient Time Seen by Provider: 03/30/18 19:29 - History of Present Illness Initial comments: 67-year-old female patient with past medical history significant for non-Hodgkin 's lymphoma currently being treated with chemotherapy presents to the emergency department today for evaluation of swelling to the left side of her abdomen. Patient states that she noticed this starting last evening. Patient states she has an intermittent burning pain to the area. Patient states that the area feels warm to touch. Patient was recently treated for shingles of left flank. Patient denies any nausea, vomiting, constipation, or diarrhea. Denies any difficulty with urination. Denies any history of similar symptoms. Patient denies any recent rash, fever, chills, shortness breath, chest pain, back pain, numbness, tingling, dizziness, weakness, hematuria, dysuria, urinary urgency, urinary frequency, headache, visual changes, or any other complaints. (Meeta Garcia) - Related Data Home Medications Medication Instructions Recorded Confirmed Furosemide 20 mg PO BID 09/19/13 03/30/18 Gabapentin 100 mg PO QAM 09/19/13 03/30/18 Gabapentin [Neurontin] 200 mg PO HS 12/05/14 03/30/18 Levothyroxine Sodium [Synthroid] 125 mcg PO MOTUWETHFRSA 12/05/14 03/30/18 Multivitamins, Thera [Multivitamin 1 tab PO DAILY 05/24/17 03/30/18 (formulary)] Atorvastatin Calcium [Lipitor] 40 mg PO HS 06/12/17 03/30/18 Citalopram Hydrobromide [CeleXA] 20 mg PO DAILY 10/22/17 03/30/18 Ondansetron HCl [Zofran] 8 mg PO Q6H PRN 11/30/17 03/30/18 Aspirin [[place] Aspirin EC] 81 mg PO DAILY 03/30/18 03/30/18 Cetirizine HCl 10 mg PO DAILY 03/30/18 03/30/18 Pantoprazole [Protonix] 40 mg PO DAILY 03/30/18 03/30/18 Potassium Chloride ER [K-Dur 10] 10 meq PO BID 03/30/18 03/30/18 predniSONE 100 mg PO DIRECTED 03/30/18 03/30/18 Previous Rx's Medication Instructions Recorded Acetaminophen Tab [Tylenol] 650 mg PO Q4HR PRN tab 12/08/17 metFORMIN HCL 1,000 mg PO BID #0 12/08/17 Allergies Allergy/AdvReac Type Severity Reaction Status Date / Time haloperidol [From Haldol] Allergy Unknown Verified 03/30/18 20:06 haloperidol lactate Allergy Unknown Verified 03/30/18 20:06 [From Haldol] Iodinated Contrast- Oral and Allergy Rash/Hives Verified 03/30/18 20:06 IV Dye [Iodinated Contrast Media - IV Dye] ciprofloxacin [From Cipro] AdvReac Heartburn Verified 03/30/18 20:06 steri-strips AdvReac Severe sore Uncoded 03/30/18 19:16 Review of Systems ROS Other: All systems not noted in ROS Statement are negative. <Meeta Garcia - Last Filed: 03/31/18 01:19> ROS Other: All systems not noted in ROS Statement are negative. <Gt Cisneros - Last Filed: 03/31/18 08:35> ROS Statement: Those systems with pertinent positive or pertinent negative responses have been documented in the HPI. Past Medical History Past Medical History: Cancer, Heart Failure, Diabetes Mellitus, Hyperlipidemia, Hypertension, Sleep Apnea/CPAP/BIPAP, Thyroid Disorder Additional Past Medical History / Comment(s): B-cell non-Hodgkin's lymphoma stage IV, diabetes mellitus,daughter stated pt had first chemo mon 11-20-17 hypertension, hyperlipidemia, obstructive sleep apnea, hypothyroidism post thyroidectomy, closed head injury in 1988, difficulty with mobility and ambulation the patient has been using a walker. has a history of kidney stones Last Myocardial Infarction Date:: 1988 History of Any Multi-Drug Resistant Organisms: None Reported Past Surgical History: Cholecystectomy, Hysterectomy, Tonsillectomy Additional Past Surgical History / Comment(s): Thyroidectomy, lymph node and liver biopsies. port a cath 11-06-17, right ureteroscopy with lithotripsy 12/2014 Past Anesthesia/Blood Transfusion Reactions: Postoperative Nausea & Vomiting ( PONV) Past Psychological History: Anxiety Smoking Status: Never smoker Past Alcohol Use History: None Reported Past Drug Use History: Marijuana - Past Family History Mother Family Medical History: Cancer Additional Family Medical History / Comment(s): breast CA Father Family Medical History: Cancer Additional Family Medical History / Comment(s): colon CA Sister(s) Family Medical History: Cancer Additional Family Medical History / Comment(s): Skin cancer <Meeta Garcia M - Last Filed: 03/31/18 01:19> General Exam Limitations: no limitations General appearance: alert, in no apparent distress, other (Physical well- developed, well-nourished adult female patient in no acute distress. Vital signs upon presentation are temperature 98.3F, pulse 101, respirations 22, blood pressure 159/95, pulse ox 98% on room air.) Eye exam: Present: normal appearance, PERRL, EOMI. Absent: scleral icterus, conjunctival injection, periorbital swelling ENT exam: Present: normal exam, normal oropharynx, mucous membranes moist Respiratory exam: Present: normal lung sounds bilaterally. Absent: respiratory distress, wheezes, rales, rhonchi, stridor Cardiovascular Exam: Present: regular rate, normal rhythm, normal heart sounds. Absent: systolic murmur, diastolic murmur, rubs, gallop, clicks GI/Abdominal exam: Present: soft, distended (Left-sided abdominal distention and fullness, firm to touch), normal bowel sounds. Absent: tenderness, guarding , rebound, rigid Neurological exam: Present: alert, oriented X3, CN II-XII intact Psychiatric exam: Present: normal affect, normal mood Skin exam: Present: warm, dry, intact, normal color. Absent: rash <Meeta Garcia M - Last Filed: 03/31/18 01:19> Vital Signs 03/30/18 03/30/18 03/30/18 19:12 19:47 21:38 Temperature 98.3 F Pulse Rate 101 H 94 99 Respiratory 22 16 16 Rate Blood Pressure 159/95 148/84 156/91 O2 Sat by Pulse 98 98 98 Oximetry 03/30/18 03/30/18 22:52 23:29 Temperature 98.7 F Pulse Rate 105 H 91 Respiratory 16 Rate Blood Pressure 89/60 151/85 O2 Sat by Pulse 96 Oximetry Medical Decision Making - Lab Data Result diagrams: 03/30/18 19:40 03/30/18 19:40 - Radiology Data Radiology results: report reviewed, image reviewed <Meeta Garcia - Last Filed: 03/31/18 01:19> - Lab Data Result diagrams: 03/30/18 19:40 03/30/18 19:40 <Gt Cisneros - Last Filed: 03/31/18 08:35> - Medical Decision Making 67-year-old female patient presents to the emergency department today for evaluation of left-sided abdominal swelling and discomfort. Physical examination did reveal left-sided abdominal swelling. No abdominal tenderness. Labs reviewed and did reveal an elevated blood sugar. CT abdomen and pelvis without contrast was obtained and did show some inflammatory changes but no evidence of acute abdomen and pelvis. Patient is afebrile, vital signs are stable. She'll be discharged home at this time. With her oncologist and her primary care physician for recheck in 1-2 days. Return parameters discussed in detail. She verbalizes understanding and agrees with this plan. (Meeta Garcia) I saw this patient in conjunction with the physician observation assistant. I performed independent history and physical exam. Agree with case management. (Gt Cisneros) - Lab Data Lab Results 03/30/18 03/30/18 03/30/18 Range/Units 19:40 19:40 19:40 WBC 8.5 (3.8-10.6) k/uL RBC 3.84 (3.80-5.40) m/uL Hgb 11.3 L (11.4-16.0) gm/dL Hct 36.0 (34.0-46.0) % MCV 93.6 (80.0-100.0) fL MCH 29.5 (25.0-35.0) pg MCHC 31.5 (31.0-37.0) g/dL RDW 17.8 H (11.5-15.5) % Plt Count 416 (150-450) k/uL Neutrophils % 87 % Lymphocytes % 4 % Monocytes % 6 % Eosinophils % 1 % Basophils % 0 % Neutrophils # 7.4 (1.3-7.7) k/uL Lymphocytes # 0.3 L (1.0-4.8) k/uL Monocytes # 0.5 (0-1.0) k/uL Eosinophils # 0.1 (0-0.7) k/uL Basophils # 0.0 (0-0.2) k/uL Hypochromasia Moderate Anisocytosis Slight Sodium 139 (137-145) mmol/L Potassium 3.8 (3.5-5.1) mmol/L Chloride 98 (98-107) mmol/L Carbon Dioxide 32 H (22-30) mmol/L Anion Gap 9 mmol/L BUN 12 (7-17) mg/dL Creatinine 0.73 (0.52-1.04) mg/dL Est GFR (CKD-EPI)AfAm >90 (>60 ml/min/1.73 sqM) Est GFR (CKD-EPI)NonAf 87 (>60 ml/min/1.73 sqM) Glucose 399 H (74-99) mg/dL Calcium 10.5 H (8.4-10.2) mg/dL Total Bilirubin 0.5 (0.2-1.3) mg/dL AST 15 (14-36) U/L ALT 21 (9-52) U/L Alkaline Phosphatase 195 H (38-126) U/L Total Protein 6.7 (6.3-8.2) g/dL Albumin 3.9 (3.5-5.0) g/dL Amylase 44 (30-110) U/L Lipase 159 (23-300) U/L Urine Color Yellow Urine Appearance Clear (Clear) Urine pH 6.0 (5.0-8.0) Ur Specific [place] 1.034 (1.001-1.035) Urine Protein Trace H (Negative) Urine Glucose (UA) 4+ H (Negative) Urine Ketones Negative (Negative) Urine Blood Negative (Negative) Urine Nitrite Negative (Negative) Urine Bilirubin Negative (Negative) Urine Urobilinogen 2.0 (<2.0) mg/dL Ur Leukocyte Esterase Negative (Negative) - Radiology Data CT abdomen and pelvis without contrast was obtained. Report was reviewed in its entirety. Impression by Dr. Vyas shows extensive colonic diverticulosis without evidence of diverticulitis. There is retroperitoneal inflammatory changes lymphadenopathy it is increased compared to recent exam of 03/15/2018 a could relate to recurrent tumor. (Meeta Garcia) Disposition Is patient prescribed a controlled substance at d/c from ED?: No Time of Disposition: 23:17 <Meeta Garcia - Last Filed: 03/31/18 01:19> <Gt Cisneros - Last Filed: 03/31/18 08:35> Clinical Impression: Abdominal swelling Disposition: HOME SELF-CARE Condition: Good Additional Instructions: Follow up through primary care physician and your oncologist for recheck as soon as possible. Return to the emergency department immediately for any new, worsening, or concerning symptoms. Referrals: Leonard Solano MD [Primary Care Provider] - 1-2 days
--- NOTE | 2018-03-30 22:39 | CT ---
EXAMINATION TYPE: CT abdomen pelvis wo con DATE OF EXAM: 03/30/2018 COMPARISON: 03/15/2018 HISTORY: left sided abdominal pain and swelling. hx of lymphoma CT DLP: 434.9 mGycm Automated exposure control for dose reduction was used. TECHNIQUE: Helical acquisition of images was performed from the lung bases through the pelvis. FINDINGS: There is subsegmental atelectasis at the posterior lung bases. Heart is enlarged. There is no pericar dial effusion. There are clips from cholecystectomy. Liver shows no focal defect. Spleen appears normal. Stomach shara ears normal. There is no evidence of pancreatic mass. There are enlarged abdominal pelvic lymph nodes that measure up to 2.5 cm. There is mild fat stranding in the retroperitoneum. There is no adrenal m ass. The kidneys show no hydronephrosis. There is low-density 5 mm calcification posterior left kidne y. There is no ascites. Appendix appears normal. There is extensive diverticulosis throughout the large bowel. The bladder distends smoothly. There is no inguinal hernia. There is no free fluid in the pelvis. There is a 5 mm anterior subluxation of L4 in relation L5. There is degenerative disc space narrowing throughout the lumbar spine. There is no compression fracture. The bony pelvis is intact. IMPRESSION: EXTENSIVE COLONIC DIVERTICULOSIS WITHOUT EVIDENCE OF DIVERTICULITIS. THERE IS RETROPERITONEAL INFLAMMATORY CHANGES AND LYMPHADENOPATHY THAT IS INCREASED COMPARED TO RECE NT EXAM OF 03/15/2018 THAT COULD RELATE TO RECURRENT TUMOR.
[2018-03-30 23:31] VITALS: BP 151/85; PULSE 91; TEMP 98.7
== END 2018-03-30 23:31 | disposition home or self-care (01) ==
LOC: EC 19:09
DX: R19.00 Intra-abdominal and pelvic swelling, mass and lump, unspecified site (principal); K57.30 Diverticulosis of large intestine without perforation or abscess without bleeding; I11.0 Hypertensive heart disease with heart failure; I50.9 Heart failure, unspecified; E78.5 Hyperlipidemia, unspecified; G47.33 Obstructive sleep apnea (adult) (pediatric); E03.9 Hypothyroidism, unspecified; I25.2 Old myocardial infarction; F41.9 Anxiety disorder, unspecified; C85.90 Non-Hodgkin lymphoma, unspecified, unspecified site; Z79.890 Hormone replacement therapy; Z79.82 Long term (current) use of aspirin; Z79.51 Long term (current) use of inhaled steroids; Z79.899 Other long term (current) drug therapy; Z88.8 Allergy status to other drugs, medicaments and biological substances; Z88.1 Allergy status to other antibiotic agents; Z91.041 Radiographic dye allergy status; Z91.048 Other nonmedicinal substance allergy status
CPT/HCPCS: 36415; 74176; 80053; 81003; 82150; 83690; 85025; 99284

== ENCOUNTER → 2018-04-07 | Outpatient (CLI) | payer MEDICARE, OTHER ==
--- NOTE | 2018-04-09 22:11 | PE ---
EXAMINATION TYPE: PET CT fusion skull to thigh DATE OF EXAM: 04/07/2018 COMPARISON: CT abdomen pelvis 03/30/2018, CT chest abdomen pelvis 03/15/2018 Prior PET/CT: 07/01/2017 HISTORY: Lymphoma TECHNIQUE: Following the intravenous administration of 12.363 mCi of F-18 FDG, whole body images are performed from the skull base to the midthigh. Images are reviewed on the computer in the coronal, axial, and sagittal planes. Reconstructed rotating images are created on independent workstation and reviewed on the computer. A localization and attenuation correction CT is performed in conjunction with the PET scan. DLP: 298.61 mGycm SCAN: Subsequent Blood glucose: 200 mg/dL Average Mediastinum SUV: 1.34 Average Liver SUV: 2.02 FINDINGS: NECK: No suspicious uptake THORAX: No suspicious uptake ABDOMEN: There is focal radiotracer accumulation in the retrocaval region in the upper abdomen. This has intense activity of 13.3. This area has increased in size from the prior examination. Intensity h owever has diminished from 16.83. Extension into the vertebral bodies and interval finding. Left lupe aortic adenopathy is not visualized on the current exam uptake within bowel loops was present previou sly. This may has some extension into the vertebral body at this level with an SUV value of 3.0. The re appears to be scattered areas of uptake within loops of bowel. PELVIS: No suspicious uptake OSSEOUS STRUCTURES: No suspicious uptake LOCALIZATION CT: Ascending thoracic aorta at the level the main pulmonary artery is 3.9 cm patent albin n pulmonary bifurcation is 2.2 cm. There is a dense calcification, likely granuloma in the posterior lateral left midlung. Calcification may be at the left infrahilar region as well. Mild coronary arter y calcification is noted. Multiple diverticuli are within the colon which contains small residual am ounts of barium. There is a nonobstructing renal stone on the left kidney measuring 0.5 cm. Vascular calcifications within the aorta. COMPARISON: Appears to be a focal area of increased uptake with direct extension into the vertebral b maureen within the upper abdomen. This has increased in volume but is diminished density the over the int erval. IMPRESSION: 1. There is some residual uptake within the retrocaval area in the upper abdomen. SUV has diminished from 16 to13. Findings however appears increased in size and there may be direct extension into the a djacent vertebral body. 2. Intense activity throughout the bowel loops may be related to bowel activity. Neoplasm within loop s of bowel which was present previously, is less likely. 3. Additional areas of abnormal uptake in the periaortic region from previous examination do not have active uptake on the current examination.
== END ==
LOC: RADPETMAIN 14:22
PROVIDERS: ATTEND Internal Medicine Hematology & Oncology
DX: R93.3 Abnormal findings on diagnostic imaging of other parts of digestive tract (principal); C85.83 Other specified types of non-Hodgkin lymphoma, intra-abdominal lymph nodes
CPT/HCPCS: 78815; A9552

== ENCOUNTER 2018-05-14 13:36 | Observation (INO) | payer MEDICARE, OTHER ==
[2018-05-14] MEDS ORDERED: SODIUM CHLORIDE 0.9% 2,000 ML IV STA (14:44)
[2018-05-14 15:24] LABS: ALT 30 U/L (9-52); AST 21 U/L (14-36); Albumin 3.1 g/dL (3.5-5.0); Alkaline Phosphatase 352 U/L (38-126); Amylase 36 U/L (30-110); Anion Gap 12 mmol/L; Blood Urea Nitrogen 16 mg/dL (7-17); Calcium 10.4 mg/dL (8.4-10.2); Carbon Dioxide 27 mmol/L (22-30); Chloride 98 mmol/L (98-107); Glucose 363 mg/dL (74-99); Lipase 135 U/L (23-300); Potassium 4.7 mmol/L (3.5-5.1); Sodium 137 mmol/L (137-145); Total Bilirubin 0.5 mg/dL (0.2-1.3); Total Protein 5.9 g/dL (6.3-8.2)
[2018-05-14 15:26] LABS: Anisocytosis Slight; HCT 29.2 % (34.0-46.0); HGB 8.5 gm/dL (11.4-16.0); Hypochromasia Marked; MCH 25.4 pg (25.0-35.0); MCHC 29.2 g/dL (31.0-37.0); Mean Platelet Volume 6.9; Platelet Count 589 k/uL (150-450); RBC 3.35 m/uL (3.80-5.40); RDW 17.3 % (11.5-15.5); WBC 17.6 k/uL (3.8-10.6)
[2018-05-14 15:28] LABS: MCV 86.9 fL (80.0-100.0)
--- NOTE | 2018-05-14 15:41 | ED ---
General Adult HPI - General Chief complaint: Recheck/Abnormal Lab/Rx Stated complaint: dehydration, abn labs Time Seen by Provider: 05/14/18 14:33 Source: patient, RN notes reviewed Mode of arrival: ambulatory Limitations: no limitations - History of Present Illness Initial comments: This a 67-year-old female presents emergency Department with family from PCPs office chief complaint of possible dehydration. Patient has a chronic back issues and went to PCPs office for increased low back pain. They did a urinalysis was found to have multiple ketones, glucose in her urine. Patient has been having decreased oral intake and ongoing nausea related to chemotherapy. Patient has B-cell lymphoma non-Hodgkin's. Patient has not had any recent chemotherapy last chemotherapy approximately 10 weeks ago. Patient has been referred for an EGD and colonoscopy secondary ongoing nausea and decreased oral appetite. Patient denies chest pain, shortness breath, headache, dizziness. Patient had no fever no URI symptoms. - Related Data Home Medications Medication Instructions Recorded Confirmed Furosemide 20 mg PO DAILY 09/19/13 05/14/18 Gabapentin 100 mg PO QAM 09/19/13 05/14/18 Gabapentin [Neurontin] 200 mg PO HS 12/05/14 05/14/18 Levothyroxine Sodium [Synthroid] 125 mcg PO MOTUWETHFRSA 12/05/14 05/14/18 Multivitamins, Thera [Multivitamin 1 tab PO DAILY 05/24/17 05/14/18 (formulary)] Atorvastatin Calcium [Lipitor] 40 mg PO HS 06/12/17 05/14/18 Citalopram Hydrobromide [CeleXA] 20 mg PO DAILY 10/22/17 05/14/18 Cetirizine HCl 10 mg PO DAILY 03/30/18 05/14/18 Pantoprazole [Protonix] 40 mg PO DAILY 03/30/18 05/14/18 Potassium Chloride ER [K-Dur 10] 10 meq PO BID 03/30/18 05/14/18 HYDROcodone/APAP 7.5-325MG [[place] 1 tab PO Q6HR PRN 05/14/18 05/14/18 7.5-325] Previous Rx's Medication Instructions Recorded metFORMIN HCL 1,000 mg PO BID #0 12/08/17 Allergies Allergy/AdvReac Type Severity Reaction Status Date / Time haloperidol [From Haldol] Allergy Unknown Verified 05/14/18 14:36 haloperidol lactate Allergy Unknown Verified 05/14/18 14:36 [From Haldol] Iodinated Contrast- Oral and Allergy Rash/Hives Verified 05/14/18 14:36 IV Dye [Iodinated Contrast Media - IV Dye] ciprofloxacin [From Cipro] AdvReac Heartburn Verified 05/14/18 14:36 steri-strips AdvReac Severe sore Uncoded 05/14/18 14:03 Review of Systems ROS Statement: Those systems with pertinent positive or pertinent negative responses have been documented in the HPI. ROS Other: All systems not noted in ROS Statement are negative. Past Medical History Past Medical History: Cancer, Heart Failure, Diabetes Mellitus, Hyperlipidemia, Hypertension, Sleep Apnea/CPAP/BIPAP, Thyroid Disorder Additional Past Medical History / Comment(s): B-cell non-Hodgkin's lymphoma stage IV, diabetes mellitus,daughter stated pt had first chemo mon 11-20-17 hypertension, hyperlipidemia, obstructive sleep apnea, hypothyroidism post thyroidectomy, closed head injury in 1988, difficulty with mobility and ambulation the patient has been using a walker. has a history of kidney stones Last Myocardial Infarction Date:: 1988 History of Any Multi-Drug Resistant Organisms: None Reported Past Surgical History: Cholecystectomy, Hysterectomy, Tonsillectomy Additional Past Surgical History / Comment(s): Thyroidectomy, lymph node and liver biopsies. port a cath 11-06-17, right ureteroscopy with lithotripsy 12/2014 Past Anesthesia/Blood Transfusion Reactions: Postoperative Nausea & Vomiting (PONV) Past Psychological History: Anxiety Smoking Status: Never smoker Past Alcohol Use History: None Reported Past Drug Use History: Marijuana - Past Family History Mother Family Medical History: Cancer Additional Family Medical History / Comment(s): breast CA Father Family Medical History: Cancer Additional Family Medical History / Comment(s): colon CA Sister(s) Family Medical History: Cancer Additional Family Medical History / Comment(s): Skin cancer General Exam Limitations: no limitations General appearance: alert, in no apparent distress Head exam: Present: atraumatic, normocephalic, normal inspection Eye exam: Present: normal appearance, PERRL, EOMI. Absent: scleral icterus, conjunctival injection, periorbital swelling ENT exam: Present: normal exam, normal oropharynx, mucous membranes moist, TM's normal bilaterally Neck exam: Present: normal inspection, full ROM. Absent: tenderness, meningismus, lymphadenopathy Respiratory exam: Present: normal lung sounds bilaterally. Absent: respiratory distress, wheezes, rales, rhonchi, stridor Cardiovascular Exam: Present: regular rate, normal rhythm, normal heart sounds. Absent: systolic murmur, diastolic murmur, rubs, gallop, clicks GI/Abdominal exam: Present: soft, normal bowel sounds. Absent: distended, tenderness, guarding, rebound, rigid Neurological exam: Present: alert, oriented X3, CN II-XII intact Skin exam: Present: warm, dry, intact, normal color. Absent: rash Course Vital Signs 05/14/18 13:58 Temperature 98.3 F Pulse Rate 89 Respiratory 18 Rate Blood Pressure 115/71 O2 Sat by Pulse 98 Oximetry Medical Decision Making - Medical Decision Making 67-year-old female presented from for generalized weakness, dehydration. Patient was hydrated with initial 2 L of fluid. Patient states she still does not feel well. Patient does have an underlying lymphoma. Patient has a mild leukocytosis no evidence of infection at this time. Patiently admitted for IV hydration., Evaluation by oncology. - Lab Data Result diagrams: 05/14/18 14:58 05/14/18 14:58 Lab Results 05/14/18 05/14/18 Range/Units 14:58 14:58 WBC 17.6 H (3.8-10.6) k/uL RBC 3.35 L (3.80-5.40) m/uL Hgb 8.5 L (11.4-16.0) gm/dL Hct 29.2 L (34.0-46.0) % MCV 86.9 D (80.0-100.0) fL MCH 25.4 (25.0-35.0) pg MCHC 29.2 L (31.0-37.0) g/dL RDW 17.3 H (11.5-15.5) % Plt Count 589 H (150-450) k/uL Neutrophils % [employer]ING [employer] Neutrophils % (Manual) 71 % Band Neutrophils % 10 % Lymphocytes % [employer] Lymphocytes % (Manual) 3 % Monocytes % [employer] Monocytes % (Manual) 9 % Eosinophils % [employer]GER Eosinophils % (Manual) 2 % Basophils % [employer] Metamyelocytes % 5 % Myelocytes % 2 % Neutrophils # [employer] Neutrophils # (Manual) 14.20 H (1.3-7.7) k/uL Lymphocytes # [employer]SE [employer]GER Lymphocytes # (Manual) 0.53 L (1.0-4.8) k/uL Monocytes # [employer]ING [employer]SE [employer] Monocytes # (Manual) 1.58 H (0-1.0) k/uL Eosinophils # [employer]GER Eosinophils # (Manual) 0.35 (0-0.7) k/uL Basophils # [employer] Metamyelocytes # (Man) 0.88 H (0) k/uL Myelocytes # (Manual) 0.35 H (0) k/uL Nucleated RBCs 0 (0-0) /100 WBC Manual Slide Review Performed Large Platelets Present Hypochromasia Marked Anisocytosis Slight Sodium 137 (137-145) mmol/L Potassium 4.7 (3.5-5.1) mmol/L Chloride 98 (98-107) mmol/L Carbon Dioxide 27 (22-30) mmol/L Anion Gap 12 mmol/L BUN 16 (7-17) mg/dL Creatinine 0.59 (0.52-1.04) mg/dL Est GFR (CKD-EPI)AfAm >90 (>60 ml/min/1.73 sqM) Est GFR (CKD-EPI)NonAf >90 (>60 ml/min/1.73 sqM) Glucose 363 H (74-99) mg/dL Calcium 10.4 H (8.4-10.2) mg/dL Total Bilirubin 0.5 (0.2-1.3) mg/dL AST 21 (14-36) U/L ALT 30 (9-52) U/L Alkaline Phosphatase 352 H (38-126) U/L Total Protein 5.9 L (6.3-8.2) g/dL Albumin 3.1 L (3.5-5.0) g/dL Amylase 36 (30-110) U/L Lipase 135 (23-300) U/L Acetone, Qual Negative (Negative) Disposition Clinical Impression: Weakness, Non Hodgkin's lymphoma, Anemia, Nausea, Dehydration Disposition: ADMITTED IP TO THIS HOSP Condition: Fair Referrals: Leonard Solano MD [Primary Care Provider] - 1-2 days
[2018-05-14] MEDS ORDERED: MORPHINE SULFATE 4 MG/ML SYRINGE IVP STA (15:54)
[2018-05-14] MEDS ORDERED: ONDANSETRON 4 MG/2 ML VIAL IVP STA (15:54)
[2018-05-14 16:11] LABS: Band Neutrophils % 10 %; Eosinophils # (M) 0.35 k/uL (0-0.7); Lymphocytes # (M) 0.53 k/uL (1.0-4.8); Metamyelocytes # (M) 0.88 k/uL (0); Metamyelocytes % 5 %; Monocytes # (M) 1.58 k/uL (0-1.0); Myelocytes # (M) 0.35 k/uL (0); Myelocytes % 2 %; Neutrophils % (M) 71 %; Nucleated Red Blood Cells 0 /100 WBC (0-0); Total Cells Counted 200
[2018-05-14 16:12] LABS: Large Platelets Present
[2018-05-14] MEDS ORDERED: INSULIN REGULAR 100 UNIT/ML VIAL IV ONE (16:32)
[2018-05-14] MEDS ORDERED: NALOXONE 0.4 MG/ML 1 ML VIAL IV PRN (17:07)
[2018-05-14] MEDS: SODIUM CHLORIDE 0.9% 1,000 ML IV SCH (17:36)
[2018-05-14 17:44] LABS: Glucose,Whole Blood 290 mg/dL (75-99)
[2018-05-14 18:11] LABS: Appearance,Urine Clear (Clear); Bilirubin,Urine Negative (Negative); Blood,Urine Negative (Negative); Color,Urine Yellow; Glucose,Urine (UA) 1+ (Negative); Ketones,Urine Negative (Negative); Leukocyte Esterase,Urine Negative (Negative); Nitrite,Urine Negative (Negative); Protein,Urine Negative (Negative); Specific Gravity,Urine 1.008 (1.001-1.035); Urobilinogen,Urine <2.0 mg/dL (<2.0)
[2018-05-14] MEDS: ATORVASTATIN 40 MG TAB PO SCH (20:06)
[2018-05-14] MEDS: GABAPENTIN 100 MG CAP PO SCH (20:06)
[2018-05-14] MEDS: metFORMIN 500 MG TAB PO SCH (20:07)
[2018-05-14] MEDS: HYDROcodone/APAP 5-325MG 1 EACH TAB PO PRN (23:27)
[2018-05-15] MEDS: SODIUM CHLORIDE 0.9% 1,000 ML IV SCH ×3 (04:04→21:08)
[2018-05-15] MEDS: HYDROcodone/APAP 5-325MG 1 EACH TAB PO PRN ×3 (04:04→21:08)
[2018-05-15] MEDS: LEVOTHYROXINE 125 MCG TAB PO SCH (05:34)
[2018-05-15] MEDS: GABAPENTIN 100 MG CAP PO SCH ×2 (07:09→20:15)
[2018-05-15] MEDS: PANTOPRAZOLE 40 MG/10 ML VIAL IV SCH (07:09)
[2018-05-15] MEDS: metFORMIN 500 MG TAB PO SCH (07:09)
[2018-05-15] MEDS: CITALOPRAM HYDROBROMIDE 20 MG TAB PO SCH (07:09)
[2018-05-15 07:12] LABS: Glucose,Whole Blood 348 mg/dL (75-99)
[2018-05-15] MEDS: INSULIN ASPART (NovoLOG) 100 UNIT/ML VIAL SQ SCH ×4 (07:16→21:04)
[2018-05-15 09:07] LABS: Anisocytosis Slight; HCT 28.2 % (34.0-46.0); HGB 8.3 gm/dL (11.4-16.0); Hypochromasia Marked; MCH 25.8 pg (25.0-35.0); MCHC 29.3 g/dL (31.0-37.0); Mean Platelet Volume 6.8; Platelet Count 577 k/uL (150-450); WBC 16.2 k/uL (3.8-10.6)
[2018-05-15 09:12] LABS: Anion Gap 9 mmol/L; Blood Urea Nitrogen 14 mg/dL (7-17); Calcium 9.7 mg/dL (8.4-10.2); Carbon Dioxide 28 mmol/L (22-30); Chloride 103 mmol/L (98-107); Glucose 300 mg/dL (74-99); Potassium 4.4 mmol/L (3.5-5.1); Sodium 140 mmol/L (137-145)
[2018-05-15] MEDS ORDERED: IOPAMIDOL-300 CONTRAST 30 ML VIAL (ORAL USE) PO PRN (09:56)
[2018-05-15] MEDS ORDERED: FAMOTIDINE 20 MG/2 ML VIAL IV ONE ×2 (10:10→16:00)
[2018-05-15] MEDS ORDERED: diphenhydrAMINE 50 MG/ML 1 ML VIAL IVP ONE ×2 (10:10→16:00)
[2018-05-15] MEDS ORDERED: methylPREDNISolone SOD SUCCI 125 MG/2 ML VIAL IV ONE (10:10)
[2018-05-15] MEDS ORDERED: BARIUM SULFATE 450 ML ORAL.SUSP BOTTLE PO ONE (10:12)
[2018-05-15 10:57] LABS: Band Neutrophils % 9 %; Basophils # (M) 0.16 k/uL (0-0.2); Eosinophils # (M) 0.32 k/uL (0-0.7); Lymphocytes # (M) 0.49 k/uL (1.0-4.8); Metamyelocytes # (M) 0.16 k/uL (0); Metamyelocytes % 1 %; Monocytes # (M) 0.81 k/uL (0-1.0); Myelocytes # (M) 0.32 k/uL (0); Myelocytes % 2 %; Neutrophils % (M) 79 %; Nucleated Red Blood Cells 0 /100 WBC (0-0); Total Cells Counted 200
--- NOTE | 2018-05-15 11:19 | P.HPIM ---
History of Present Illness 67-year-old female known non-Hodgkin's lymphoma presented to family physician with complaints of poor appetite and not feeling well. Patient states back pain is been worsej. Patient has been admitted for rehydration and follow-up with Dr. Gracia Review of Systems Constitutional: Reports fatigue, Reports weakness Gastrointestinal: Reports loss of appetite, Reports nausea Musculoskeletal: Reports low back pain Past Medical History Past Medical History: Cancer, Heart Failure, Diabetes Mellitus, Hyperlipidemia, Hypertension, Sleep Apnea/CPAP/BIPAP, Thyroid Disorder Additional Past Medical History / Comment(s): B-cell non-Hodgkin's lymphoma stage IV, diabetes mellitus,daughter stated pt had first chemo mon 11-20-17 hypertension, hyperlipidemia, obstructive sleep apnea, hypothyroidism post thyroidectomy, closed head injury in 1988, difficulty with mobility and ambulation the patient has been using a walker. has a history of kidney stones Last Myocardial Infarction Date:: 1988 History of Any Multi-Drug Resistant Organisms: None Reported Past Surgical History: Cholecystectomy, Hysterectomy, Tonsillectomy Additional Past Surgical History / Comment(s): Thyroidectomy, lymph node and liver biopsies. port a cath 11-06-17, right ureteroscopy with lithotripsy 12/2014 Past Anesthesia/Blood Transfusion Reactions: Postoperative Nausea & Vomiting (PONV) Past Psychological History: Anxiety Additional Psychological History / Comment(s): Single. 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 No international travel. No experience. No animal exposures Smoking Status: Never smoker Past Alcohol Use History: None Reported Additional Past Alcohol Use History / Comment(s): Patient is a lifelong nonsmoker. She denies any medical marijuana, marijuana, street drug or alcohol use. She lives at home with her family. Grand daughter acting like caregiver. 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 Past Drug Use History: Marijuana - Past Family History Mother Family Medical History: Cancer Additional Family Medical History / Comment(s): breast CA Father Family Medical History: Cancer Additional Family Medical History / Comment(s): colon CA Sister(s) Family Medical History: Cancer Additional Family Medical History / Comment(s): Skin cancer Medications and Allergies Home Medications Medication Instructions Recorded Confirmed Type Furosemide 20 mg PO DAILY 09/19/13 05/14/18 History Gabapentin 100 mg PO QAM 09/19/13 05/14/18 History Gabapentin [Neurontin] 200 mg PO HS 12/05/14 05/14/18 History Levothyroxine Sodium [Synthroid] 125 mcg PO MOTUWETHFRSA 12/05/14 05/14/18 History Multivitamins, Thera [Multivitamin 1 tab PO DAILY 05/24/17 05/14/18 History (formulary)] Atorvastatin Calcium [Lipitor] 40 mg PO HS 06/12/17 05/14/18 History Citalopram Hydrobromide [CeleXA] 20 mg PO DAILY 10/22/17 05/14/18 History metFORMIN HCL 1,000 mg PO BID #0 12/08/17 05/14/18 Rx Cetirizine HCl 10 mg PO DAILY 03/30/18 05/14/18 History Pantoprazole [Protonix] 40 mg PO DAILY 03/30/18 05/14/18 History Potassium Chloride ER [K-Dur 10] 10 meq PO BID 03/30/18 05/14/18 History HYDROcodone/APAP 7.5-325MG [[place] 1 tab PO Q6HR PRN 05/14/18 05/14/18 History 7.5-325] Allergies Allergy/AdvReac Type Severity Reaction Status Date / Time haloperidol [From Haldol] Allergy Unknown Verified 05/14/18 14:36 haloperidol lactate Allergy Unknown Verified 05/14/18 14:36 [From Haldol] Iodinated Contrast- Oral and Allergy Rash/Hives Verified 05/14/18 14:36 IV Dye [Iodinated Contrast Media - IV Dye] ciprofloxacin [From Cipro] AdvReac Heartburn Verified 05/14/18 14:36 steri-strips AdvReac Severe sore Uncoded 05/14/18 14:03 Physical Exam Vitals: Vital Signs Temp Pulse Pulse Resp BP BP BP 05/15/18 06:58 98.3 F 89 18 107/63 05/14/18 22:30 100 F H 100 20 110/67 05/14/18 17:00 98.0 F 84 18 108/72 05/14/18 13:58 98.3 F 89 18 115/71 Pulse Ox 05/15/18 06:58 93 L 05/14/18 22:30 95 05/14/18 17:00 98 05/14/18 13:58 98 Intake and Output 05/14/18 05/15/18 05/15/18 22:59 06:59 14:59 Intake Total 400 100 240 Balance 400 100 240 Intake: Oral 400 100 240 Other: Voiding Method Toilet # Voids 1 1 Weight 61.6 kg - Constitutional General appearance: mild distress - EENT Eyes: PERRLA Ears: bilateral: normal - Neck Neck: normal ROM - Respiratory Respiratory: bilateral: CTA - Cardiovascular Rhythm: regular - Gastrointestinal General gastrointestinal: soft - Integumentary Integumentary: normal - Neurologic Neurologic: CNII-XII intact - Musculoskeletal Musculoskeletal: generalized weakness Results CBC & Chem 7: 05/15/18 08:00 05/15/18 08:00 Labs: Abnormal Lab Results - Last 24 Hours (Table) 05/14/18 05/14/18 05/14/18 Range/Units 14:58 14:58 17:42 WBC 17.6 H (3.8-10.6) k/uL RBC 3.35 L (3.80-5.40) m/uL Hgb 8.5 L (11.4-16.0) gm/dL Hct 29.2 L (34.0-46.0) % MCHC 29.2 L (31.0-37.0) g/dL RDW 17.3 H (11.5-15.5) % Plt Count 589 H (150-450) k/uL Neutrophils # (Manual) 14.20 H (1.3-7.7) k/uL Lymphocytes # (Manual) 0.53 L (1.0-4.8) k/uL Monocytes # (Manual) 1.58 H (0-1.0) k/uL Metamyelocytes # (Man) 0.88 H (0) k/uL Myelocytes # (Manual) 0.35 H (0) k/uL Glucose 363 H (74-99) mg/dL POC Glucose (mg/dL) 290 H (75-99) mg/dL Calcium 10.4 H (8.4-10.2) mg/dL Alkaline Phosphatase 352 H (38-126) U/L Total Protein 5.9 L (6.3-8.2) g/dL Albumin 3.1 L (3.5-5.0) g/dL Urine Glucose (UA) (Negative) 05/14/18 05/15/18 05/15/18 Range/Units 17:45 07:00 08:00 WBC 16.2 H (3.8-10.6) k/uL RBC 3.20 L (3.80-5.40) m/uL Hgb 8.3 L (11.4-16.0) gm/dL Hct 28.2 L (34.0-46.0) % MCHC 29.3 L (31.0-37.0) g/dL RDW 17.0 H (11.5-15.5) % Plt Count 577 H (150-450) k/uL Neutrophils # (Manual) 14.20 H (1.3-7.7) k/uL Lymphocytes # (Manual) 0.49 L (1.0-4.8) k/uL Monocytes # (Manual) (0-1.0) k/uL Metamyelocytes # (Man) 0.16 H (0) k/uL Myelocytes # (Manual) 0.32 H (0) k/uL Glucose (74-99) mg/dL POC Glucose (mg/dL) 348 H (75-99) mg/dL Calcium (8.4-10.2) mg/dL Alkaline Phosphatase (38-126) U/L Total Protein (6.3-8.2) g/dL Albumin (3.5-5.0) g/dL Urine Glucose (UA) 1+ H (Negative) 05/15/18 Range/Units 08:00 WBC (3.8-10.6) k/uL RBC (3.80-5.40) m/uL Hgb (11.4-16.0) gm/dL Hct (34.0-46.0) % MCHC (31.0-37.0) g/dL RDW (11.5-15.5) % Plt Count (150-450) k/uL Neutrophils # (Manual) (1.3-7.7) k/uL Lymphocytes # (Manual) (1.0-4.8) k/uL Monocytes # (Manual) (0-1.0) k/uL Metamyelocytes # (Man) (0) k/uL Myelocytes # (Manual) (0) k/uL Glucose 300 H (74-99) mg/dL POC Glucose (mg/dL) (75-99) mg/dL Calcium (8.4-10.2) mg/dL Alkaline Phosphatase (38-126) U/L Total Protein (6.3-8.2) g/dL Albumin (3.5-5.0) g/dL Urine Glucose (UA) (Negative) Thrombosis Risk Factor Assmnt - Choose All That Apply Each Risk Factor Represents 2 Points: Age 61-74 years Thrombosis Risk Factor Assessment Total Risk Factor Score: 2 Thrombosis Risk Factor Assessment Level: Low Risk Assessment and Plan Plan: Assessment Weakness Non-Hodgkin's lymphoma Anemia chronic disease Leukocytosis Nausea Dehydration History diabetes type 2 Hypertension Hyperlipidemia Sleep apnea with CPAP Hypothyroidism Plan CT of the chest and abdomen ordered We'll continue consultation with Dr. Samia Aponte
[2018-05-15 12:13] LABS: Glucose,Whole Blood 308 mg/dL (75-99)
[2018-05-15] MEDS: BARIUM SULFATE 450 ML ORAL.SUSP BOTTLE PO PRN ×2 (12:18→15:29)
[2018-05-15 17:15] LABS: Glucose,Whole Blood 308 mg/dL (75-99)
[2018-05-15] MEDS: ATORVASTATIN 40 MG TAB PO SCH (20:15)
[2018-05-15 20:37] LABS: Glucose,Whole Blood 285 mg/dL (75-99)
--- NOTE | 2018-05-15 23:48 | P.CONS ---
History of Present Illness - Reason for Consult Consult date: 05/15/18 Hx: NHL Requesting physician: Tyree Siddiqui - Chief Complaint Pain, Weakness, decreased appetite and nausea - History of Present Illness Ms Ledezma is a 67 yr old white female, initially seen in consult at [facility] on 05/25/17. She had been admitted with lower chest/upper abdominal pain. She was evaluated by internal medicine and cardiology with symptoms resolving spontaneously. She had a CT to evaluate in the outer to rule out aortic aneurysm. This incidentally noted retroperitoneal adenopathy, left greater than right, largest about 4 cm in size. The patient had no obvious symptoms other than mid back pain for the prior 6-8 weeks. However this was not constant. She had a CT of the chest abdomen and pelvis which showed re troperitoneal adenopathy measuring 4.8 x 2.9 cm with some additional upper abdominal adenopathy measuring up to 1.9 cm. No other adenopathy was seen in the thorax or pelvis. CBC was normal other than mild WBC elevation, mostly due to neutropenia. Chem panel was also negative other than creatinine of 1.2. The patient had a retroperitoneal core biopsy on 06/19/17. The biopsy was positive for B-cell non-Hodgkin's lymphoma, CD5 negative. The main differentials included follicular, splenic marginal zone, or LPL. A specimen was sent to [facility] with final diagnosis pending post consultation. the patient was then referred here and seen for her first office visit on 06/27/17. the patient had labs and PET scan ordered. 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 PET scan showed activity in the area of of abdominal adenopathy. No other areas of suspicious activity are noted, except for scattered areas in the liver which could not be well defined. Labs were negative other than elevated Light chain at 10 3 mg/L, versus lambda of 44.7 mg/L, with mild elevation of ratio at 2.35. The patient had an MRI of the liver ordered, which showed multiple suspicious lesions, at least 8 in number. She therefore underwent an ultrasound-guided liver biopsy in early 08/14. This showed a dense lymphocytic infiltrative pattern. However interestingly the majority of the liver cells appear to be reactive T lymphocytes with only a small number of B lymphocytes noted. The pathologic findings are felt to raise the possibility of an inflammatory disorder such as primary biliary cirrhosis. The specimen was been sent to the [facility] for additional consultation, which reported no evidence of malignancy. She had a bone marrow in 09/13 , revealing involvement, and thus stage 4 disease. She was thus placed on observation . She was admitted with severe fatigue and weakness to [facility] in late 10/14. CT scans showed progression in the lymph nodes and liver. She had a liver biopsy on 10/24/17, showing presence of a large and small cell lymphoma population. Double/triple hit testing was negative. she was started on R-CEOP (Adriamycin not use due to diminished ejection fraction) on 11/20/17. She is status post 1 cycle. She was seen in the office on 11/30/17. She denies any fever/chills. she had marked agitation with steroids, which improved with Xanax. She had markedly decreased appetite and progressive weakness. she has been very lethargic, and requiring assistance with even minimal activities. She has been nauseous persistently, with intermittent vomiting. Over the last 1-2 days, she has been having diarrhea with lower abdominal cramping and pain. according to the family, she has been intermittently confused, especially at night. This had improved after stopping the steroids but seemed to have become somewhat more prominent over the last 1-2 days. her blood pressure was quite low in the office, with systolic in the 70 range. She was therefore sent in to the emergency room. The case was discussed in detail with the ER physician. The patient was noted to have tachycardia as well as low blood pressure, that did not respond well to fluids. WBC was 1.6. She was therefore admitted to the ICU, and consult placed for further evaluation and recommendations. CT of the abdomen and pelvis revealed evidence of enteritis, and possibly left hydronephrosis due to renal calculus She completed treatment withCOEP with neulasta. In December 2017 she was admitted with increased weakness, fatigue, confusion, recurrent falls, and elevated blood glucose levels. Her regimen of chemo includes 5 days of high dose steroids, prednisone, which accounts for her elevated glucose levels. She is feeling a little better today she stated. She is still a poor historian and no family at bedside as she originally stated she was short of breath when she came in but then told me she think she was admitted for a fall or high glucose. She has always seemed to be poor historian at baseline, and her daughter who is also her caregiver is usually with her, although not during todays assessment. CTA chest failed to show any evidence of acute etiology or pulmonary embolism. Ms. Ledezma Now presents to [facility] with complaints of increased pain and overall feeling worse over the past weeks. She was seen in office on May 09 and at that time was undergoing treatment for assumed infection UTI, although UA negative unknown if truly infectious. Dr. Gracia recommended patient undergo GI work-up with upper and lower endoscopy as he was concerned for potential bowel wall involvement of lymphoma, at that time she was agreeable but has not followed up with the recommendation. She was referred to Dr. Fadi SNYDER as well at that time regarding potential UA versus colinization. Review of Systems A 14 point review of systems assessed and completed and all negative except HPI Past Medical History Past Medical History: Cancer, Heart Failure, Diabetes Mellitus, Hyperlipidemia, Hypertension, Sleep Apnea/CPAP/BIPAP, Thyroid Disorder Additional Past Medical History / Comment(s): B-cell non-Hodgkin's lymphoma stage IV, diabetes mellitus,daughter stated pt had first chemo mon 11-20-17 hypertension, hyperlipidemia, obstructive sleep apnea, hypothyroidism post thyroidectomy, closed head injury in 1988, difficulty with mobility and ambulation the patient has been using a walker. has a history of kidney stones Last Myocardial Infarction Date:: 1988 History of Any Multi-Drug Resistant Organisms: None Reported Past Surgical History: Cholecystectomy, Hysterectomy, Tonsillectomy Additional Past Surgical History / Comment(s): Thyroidectomy, lymph node and liver biopsies. 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 No international travel. No experience. No animal exposures Smoking Status: Never smoker Past Alcohol Use History: None Reported Additional Past Alcohol Use History / Comment(s): Patient is a lifelong nonsmoker. She denies any medical marijuana, marijuana, street drug or alcohol use. She lives at home with her family. Grand daughter acting like caregiver. 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 Past Drug Use History: Marijuana - Past Family History Mother Family Medical History: Cancer Additional Family Medical History / Comment(s): breast CA Father Family Medical History: Cancer Additional Family Medical History / Comment(s): colon CA Sister(s) Family Medical History: Cancer Additional Family Medical History / Comment(s): Skin cancer Medications and Allergies Home Medications Medication Instructions Recorded Confirmed Type Furosemide 20 mg PO DAILY 09/19/13 05/14/18 History Gabapentin 100 mg PO QAM 09/19/13 05/14/18 History Gabapentin [Neurontin] 200 mg PO HS 12/05/14 05/14/18 History Levothyroxine Sodium [Synthroid] 125 mcg PO MOTUWETHFRSA 12/05/14 05/14/18 History Multivitamins, Thera [Multivitamin 1 tab PO DAILY 05/24/17 05/14/18 History (formulary)] Atorvastatin Calcium [Lipitor] 40 mg PO HS 06/12/17 05/14/18 History Citalopram Hydrobromide [CeleXA] 20 mg PO DAILY 10/22/17 05/14/18 History metFORMIN HCL 1,000 mg PO BID #0 12/08/17 05/14/18 Rx Cetirizine HCl 10 mg PO DAILY 03/30/18 05/14/18 History Pantoprazole [Protonix] 40 mg PO DAILY 03/30/18 05/14/18 History Potassium Chloride ER [K-Dur 10] 10 meq PO BID 03/30/18 05/14/18 History HYDROcodone/APAP 7.5-325MG [[place] 1 tab PO Q6HR PRN 05/14/18 05/14/18 History 7.5-325] Allergies Allergy/AdvReac Type Severity Reaction Status Date / Time haloperidol [From Haldol] Allergy Unknown Verified 05/14/18 14:36 haloperidol lactate Allergy Unknown Verified 05/14/18 14:36 [From Haldol] Iodinated Contrast- Oral and Allergy Rash/Hives Verified 05/14/18 14:36 IV Dye [Iodinated Contrast Media - IV Dye] ciprofloxacin [From Cipro] AdvReac Heartburn Verified 05/14/18 14:36 steri-strips AdvReac Severe sore Uncoded 05/14/18 14:03 Physical Exam Vitals: Vital Signs Temp Pulse Pulse Resp BP BP BP 05/15/18 14:12 98.2 F 86 18 105/66 05/15/18 06:58 98.3 F 89 18 107/63 05/14/18 22:30 100 F H 100 20 110/67 05/14/18 17:00 98.0 F 84 18 108/72 Pulse Ox 05/15/18 14:12 92 L 05/15/18 06:58 93 L 05/14/18 22:30 95 05/14/18 17:00 98 Intake and Output 05/15/18 05/15/18 05/15/18 06:59 14:59 22:59 Intake Total 100 480 Balance 100 480 Intake: Oral 100 480 Other: Voiding Method Toilet Toilet # Voids 1 1 Weight 61.6 kg Gen: ALert, No acute distress Head: NC, NT Neck Suppple No adenopathy on palpation Lungs: Diminished bibasilar, no increased effort Heart RRR, S1 Abdomen: Soft, Tender to palpiation Neuro: No sensory or motor deficits Results CBC & Chem 7: 05/15/18 08:00 05/15/18 08:00 Labs: Abnormal Lab Results - Last 24 Hours (Table) 05/14/18 05/14/18 05/15/18 Range/Units 17:42 17:45 07:00 WBC (3.8-10.6) k/uL RBC (3.80-5.40) m/uL Hgb (11.4-16.0) gm/dL Hct (34.0-46.0) % MCHC (31.0-37.0) g/dL RDW (11.5-15.5) % Plt Count (150-450) k/uL Neutrophils # (Manual) (1.3-7.7) k/uL Lymphocytes # (Manual) (1.0-4.8) k/uL Metamyelocytes # (Man) (0) k/uL Myelocytes # (Manual) (0) k/uL Glucose (74-99) mg/dL POC Glucose (mg/dL) 290 H 348 H (75-99) mg/dL Urine Glucose (UA) 1+ H (Negative) 05/15/18 05/15/18 05/15/18 Range/Units 08:00 08:00 12:12 WBC 16.2 H (3.8-10.6) k/uL RBC 3.20 L (3.80-5.40) m/uL Hgb 8.3 L (11.4-16.0) gm/dL Hct 28.2 L (34.0-46.0) % MCHC 29.3 L (31.0-37.0) g/dL RDW 17.0 H (11.5-15.5) % Plt Count 577 H (150-450) k/uL Neutrophils # (Manual) 14.20 H (1.3-7.7) k/uL Lymphocytes # (Manual) 0.49 L (1.0-4.8) k/uL Metamyelocytes # (Man) 0.16 H (0) k/uL Myelocytes # (Manual) 0.32 H (0) k/uL Glucose 300 H (74-99) mg/dL POC Glucose (mg/dL) 308 H (75-99) mg/dL Urine Glucose (UA) (Negative) CT scan - abdomen: report reviewed CT scan - chest: report reviewed CT scan - pelvis: report reviewed Assessment and Plan Plan: Assessment and Recommendations: 1. NHL: - Most recently status post treatment with Hycela and bendamustine, status Post Cycle 2 03/06/18 - Prior to above status post treatment with R-Ceop - Concern for progrssion: CT C/A/P - GI Work-up assess for bowel wall involvement - LDH, Uric Acid 2. Anorexia and weight loss: - Megace recently ordered 3. Worsening weakness and fatigue and debility 4. Persisitent Nausea and Abdominal Pain: - GI WOrk-up and CT Scans 5. Normocytic Anemia: Secondary to chemo and lymphoma - Recheck Iron Studies - CBC and CMP in am Physcian Attest: I have completed the full history and physical and developed the complete impression and plan, agree with above, dictated as a scribe
[2018-05-16] MEDS: LEVOTHYROXINE 125 MCG TAB PO SCH (05:39)
[2018-05-16] MEDS: HYDROcodone/APAP 5-325MG 1 EACH TAB PO PRN ×2 (05:42→11:50)
[2018-05-16] MEDS: FUROSEMIDE 20 MG TAB PO SCH (06:22)
[2018-05-16 07:18] LABS: Glucose,Whole Blood 353 mg/dL (75-99)
[2018-05-16] MEDS: PANTOPRAZOLE 40 MG/10 ML VIAL IV SCH (07:34)
[2018-05-16] MEDS: INSULIN ASPART (NovoLOG) 100 UNIT/ML VIAL SQ SCH ×4 (07:35→22:33)
[2018-05-16] MEDS: CITALOPRAM HYDROBROMIDE 20 MG TAB PO SCH (07:35)
[2018-05-16] MEDS: GABAPENTIN 100 MG CAP PO SCH ×2 (07:35→20:26)
--- NOTE | 2018-05-16 08:21 | CT ---
EXAMINATION TYPE: CT ChestAbdPelvis w con DATE OF EXAM: 05/15/2018 COMPARISON: PET CT April 07, 2018 and older CTs HISTORY: f/u lymphoma originally diagnosed May 2017 and abdomen completed chemotherapy January CT DLP: 711.2 mGycm. Automated Exposure Control for Dose Reduction was Utilized. CONTRAST: CT scan of the thorax, abdomen and pelvis is performed with oral and with IV Contrast, patient inject ed with 100 mL of Isovue 300. FINDINGS: LUNGS: There are new small bilateral pleural effusions with associated compressive atelectasis near d iaphragm and mild diffuse interstitial edema. There is redemonstration of a 1 cm calcified nodule or granuloma in the lateral left mid lung axial image 23. No pneumothorax is seen bilaterally. No suspic ious focal consolidation is present. MEDIASTINUM: There are no new greater than 1 cm noncalcified hilar or mediastinal lymph nodes. No p ericardial effusion is seen. Cardiomegaly is present. There is redemonstration of calcified AP windo w and left hilar lymph nodes. OTHER: Stable right internal jugular Mediport catheter. LIVER/GB: Cholecystectomy clips are redemonstrated.. PANCREAS: No significant abnormality is seen. SPLEEN: No significant abnormality is seen. ADRENALS: Slight asymmetric thickening to left adrenal gland is presumed benign and stable.. KIDNEYS: Some cortical thinning in the right kidney is present with slight diminished size versus lef t kidney. There is redemonstration of 2 mm calculus lower pole level left kidney seen best coronal im age 53. There is symmetric cortical medullary uptake and excretion from both kidneys without hydronep hrosis bilaterally. There is stable 1.4 cm simple appearing cyst laterally upper to mid pole of the l eft kidney series 5 image 31. BOWEL: Normal-appearing appendix or cecum right lower quadrant and upper pelvis is seen. Scattered di verticula throughout the entire colon are present. There is no suspicious small or large bowel dilata tion. No CT evidence for acute diverticulitis. GENITAL ORGANS: Uterus is surgically absent or markedly atrophic. A few scattered pelvic phleboliths are redemonstrated. LYMPH NODES: There is developed interval progression of retroperitoneal adenopathy. For reference aor tocaval adenopathy near level of right renal artery measures 4.3 x 3.0 cm current study increased in size from most recent CT. There now appears to be encasement of portions of the right renal artery wh ich is patent and blurring of fat plane along posterior margin of IVC. Left periaortic adenopathy axi al image 66 also appears more bulky from most recent CT but is difficult to accurately measure and wa s recently PET negative. Incidental retroaortic left renal vein which is normal variant. OSSEOUS STRUCTURES: Multilevel spurring in the spine is present. Multilevel facet arthropathy mid to lower lumbar levels is seen. OTHER: No significant additional abnormality is seen. IMPRESSION: 1. Worsening mid abdominal retroperitoneal adenopathy which correlates with most recent PET/CT, ankit nued hypermetabolic uptake. No new thoracic or pelvic adenopathy clearly seen. 2. Correlate for CHF exacerbation as there is cardiomegaly with new small bilateral pleural effusions and mild interstitial edema identified bilaterally.
[2018-05-16 11:26] LABS: Anisocytosis Slight; HGB 8.3 gm/dL (11.4-16.0); Hypochromasia Marked; MCH 25.3 pg (25.0-35.0); MCHC 28.7 g/dL (31.0-37.0); MCV 88.4 fL (80.0-100.0); Mean Platelet Volume 6.9; Platelet Count 676 k/uL (150-450); RBC 3.28 m/uL (3.80-5.40); RDW 16.8 % (11.5-15.5); WBC 21.9 k/uL (3.8-10.6)
[2018-05-16 11:34] LABS: ALT 25 U/L (9-52); AST 21 U/L (14-36); Alkaline Phosphatase 322 U/L (38-126); Anion Gap 11 mmol/L; Blood Urea Nitrogen 17 mg/dL (7-17); Calcium 10.2 mg/dL (8.4-10.2); Carbon Dioxide 25 mmol/L (22-30); Chloride 103 mmol/L (98-107); Glucose 279 mg/dL (74-99); LDH 400 U/L (313-618); Potassium 4.1 mmol/L (3.5-5.1); Sodium 139 mmol/L (137-145); Total Bilirubin 0.3 mg/dL (0.2-1.3); Total Protein 5.6 g/dL (6.3-8.2); Uric Acid 5.1 mg/dL (3.7-7.4)
[2018-05-16] MEDS: ONDANSETRON 4 MG/2 ML VIAL IVP PRN ×2 (11:51→19:00)
[2018-05-16 11:55] LABS: Glucose,Whole Blood 276 mg/dL (75-99)
[2018-05-16 12:14] LABS: Band Neutrophils % 5 %; Lymphocytes # (M) 0.44 k/uL (1.0-4.8); Metamyelocytes # (M) 0.44 k/uL (0); Metamyelocytes % 2 %; Monocytes # (M) 1.53 k/uL (0-1.0); Myelocytes # (M) 0.22 k/uL (0); Myelocytes % 1 %; Neutrophils % (M) 85 %; Nucleated Red Blood Cells 0 /100 WBC (0-0); Total Cells Counted 200
--- NOTE | 2018-05-16 12:16 | P.PN ---
Subjective Progress Note Date: 05/16/18 Patient sitting in chair at bedside complaining of severe lower back pain point tenderness to right SI joint. Patient is scheduled for EGD and colonoscopy tomorrow. Patient had CAT scan showing increase in the size of lymph nodes to abdomen. Patient continues to complain of nausea although states she feels number Objective - Vital Signs Vital signs: Vital Signs Temp 98.3 F 05/16/18 06:08 Pulse 74 05/16/18 06:08 Resp 17 05/16/18 06:08 BP 111/63 05/16/18 06:08 Pulse Ox 91 L 05/16/18 06:08 Intake & Output 05/15/18 05/16/18 05/16/18 18:59 06:59 18:59 Intake Total 720 Balance 720 Weight 64.546 kg Intake: Oral 720 Other: Voiding Method Toilet Toilet Toilet # Voids 1 1 2 # Bowel Movements 1 - Constitutional General appearance: Present: mild distress - EENT Eyes: Present: PERRLA Ears: bilateral: normal - Neck Neck: Present: normal ROM - Respiratory Respiratory: bilateral: CTA - Cardiovascular Rhythm: regular - Gastrointestinal General gastrointestinal: Present: soft - Musculoskeletal Musculoskeletal Comment(s): Point tenderness to right SI joint Musculoskeletal: Present: generalized weakness - Psychiatric Psychiatric: Present: A&O x's 3, appropriate affect, intact judgment & insight - Labs CBC & Chem 7: 05/16/18 10:31 05/16/18 10:31 Labs: Abnormal Lab Results - Last 24 Hours (Table) 05/15/18 05/15/18 05/15/18 Range/Units 12:12 17:05 20:35 WBC (3.8-10.6) k/uL RBC (3.80-5.40) m/uL Hgb (11.4-16.0) gm/dL Hct (34.0-46.0) % MCHC (31.0-37.0) g/dL RDW (11.5-15.5) % Plt Count (150-450) k/uL Glucose (74-99) mg/dL POC Glucose (mg/dL) 308 H 308 H 285 H (75-99) mg/dL Alkaline Phosphatase (38-126) U/L Total Protein (6.3-8.2) g/dL Albumin (3.5-5.0) g/dL 05/16/18 05/16/18 05/16/18 Range/Units 07:15 10:31 10:31 WBC 21.9 H (3.8-10.6) k/uL RBC 3.28 L (3.80-5.40) m/uL Hgb 8.3 L (11.4-16.0) gm/dL Hct 29.0 L (34.0-46.0) % MCHC 28.7 L (31.0-37.0) g/dL RDW 16.8 H (11.5-15.5) % Plt Count 676 H (150-450) k/uL Glucose 279 H (74-99) mg/dL POC Glucose (mg/dL) 353 H (75-99) mg/dL Alkaline Phosphatase 322 H (38-126) U/L Total Protein 5.6 L (6.3-8.2) g/dL Albumin 3.0 L (3.5-5.0) g/dL 05/16/18 Range/Units 11:40 WBC (3.8-10.6) k/uL RBC (3.80-5.40) m/uL Hgb (11.4-16.0) gm/dL Hct (34.0-46.0) % MCHC (31.0-37.0) g/dL RDW (11.5-15.5) % Plt Count (150-450) k/uL Glucose (74-99) mg/dL POC Glucose (mg/dL) 276 H (75-99) mg/dL Alkaline Phosphatase (38-126) U/L Total Protein (6.3-8.2) g/dL Albumin (3.5-5.0) g/dL - Imaging and Cardiology CT scan - abdomen: report reviewed CT scan - chest: report reviewed Assessment and Plan Plan: Assessment Weakness fatigue Non-Hodgkin's lymphoma Anorexia weight loss Leukocytosis Anemia of chronic disease lymphoma and chemotherapy Diabetes type 2 Hypertension Hyperlipidemia Sleep apnea with CPAP Hypothyroidism Plan Continue consultation with Dr. Gracia Consultation with gastroenterology for EGD and colonoscopy tomorrow
--- NOTE | 2018-05-16 12:35 | P.CONS ---
History of Present Illness - Reason for Consult Consult date: 05/16/18 History lymphoma EGD colonoscopy screening Requesting physician: Wicho Gracia - Chief Complaint Dehydration - History of Present Illness 67-year-old female history of non-Hodgkin's B-cell lymphoma confirmed via liver biopsy last summer. Patient presents with concerns for dehydration. She has a past history of memory impairment. Patient has had decreased oral intake and on going nausea secondary to her chemotherapy. Last chemotherapy early February 2018. Oncology requested EGD colonoscopy surveillance to rule out bowel wall lymphoma concern for progression of disease. Patient denies abdominal pain she reports lower back pain most in the right retroperitoneal region. Denies hematemesis hematochezia melena. No fever or chills. Last EGD colonoscopy of record August 2013; upper endoscopy no evidence of peptic ulcer disease lower endoscopy evidence of torturous colon colonoscopy incomplete multiple colonic diverticuli internal hemorrhoids. Follow-up barium study demonstrated extensive diverticulosis of the entire colon. Afebrile 24 hours T-max 100.0 on 05/14/2018. Presently white count 21.9. Hemoglobin 8.3. Platelets 676. Patient received IV steroids yesterday. No abdominal complaints presently. Tolerating diet. CT chest abdomen and pelvis worsening mid abdominal retroperitoneal adenopathy which correlates with ulceration CT hypermetabolic uptake. New small bilateral pleural effusions and mild interstitial edema identified bilaterally. No new thoracic or pelvic adenopathy seen. Review of Systems Constitutional: Denies fever, chills, sweats, weight gain, or loss. Increased appetite. History of memory impairment HEENT: Negative for migraines, blurred vision or loss, earaches, drainage, tinnitus, oral mucosal lesions, dysphagia, or odynophagia. CARDIAC: Negative for chest pain, arrhythmias, or palpitation. RESPIRATORY: Negative for shortness of breath, hemoptysis, cough, or sputum production. GI: See HPI for pertinent findings. : Negative for hematuria, urgency, frequency, polyuria, or dysuria. GYNc: Negative vaginal discharge. MUSCULOSKELETAL: Negative for muscle aches, swelling, arthritis, and arthralgias. NEUROLOGIC: Negative for stroke or TIA. ENDOCRINE: Negative for thyroid problems. SKIN: Negative for rash or itching. PSYCHIATRIC: Negative history for depression and anxiety Past Medical History Past Medical History: Cancer, Heart Failure, Diabetes Mellitus, Hyperlipidemia, Hypertension, Sleep Apnea/CPAP/BIPAP, Thyroid Disorder Additional Past Medical History / Comment(s): B-cell non-Hodgkin's lymphoma stage IV, diabetes mellitus,daughter stated pt had first chemo mon 11-20-17 hypertension, hyperlipidemia, obstructive sleep apnea, hypothyroidism post thyroidectomy, closed head injury in 1988, difficulty with mobility and ambulation the patient has been using a walker. has a history of kidney stones Last Myocardial Infarction Date:: 1988 History of Any Multi-Drug Resistant Organisms: None Reported Past Surgical History: Cholecystectomy, Hysterectomy, Tonsillectomy Additional Past Surgical History / Comment(s): Thyroidectomy, lymph node and liver biopsies. port a cath 11-06-17, right ureteroscopy with lithotripsy 12/2014 Past Anesthesia/Blood Transfusion Reactions: Postoperative Nausea & Vomiting (PONV) Past Psychological History: Anxiety Additional Psychological History / Comment(s): Single. 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 No international travel. No experience. No animal exposures Smoking Status: Never smoker Past Alcohol Use History: None Reported Additional Past Alcohol Use History / Comment(s): Patient is a lifelong nonsmoker. She denies any medical marijuana, marijuana, street drug or alcohol use. She lives at home with her family. Grand daughter acting like caregiver. 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 Past Drug Use History: Marijuana - Past Family History Mother Family Medical History: Cancer Additional Family Medical History / Comment(s): breast CA Father Family Medical History: Cancer Additional Family Medical History / Comment(s): colon CA Sister(s) Family Medical History: Cancer Additional Family Medical History / Comment(s): Skin cancer Medications and Allergies Home Medications Medication Instructions Recorded Confirmed Type Furosemide 20 mg PO DAILY 09/19/13 05/14/18 History Gabapentin 100 mg PO QAM 09/19/13 05/14/18 History Gabapentin [Neurontin] 200 mg PO HS 12/05/14 05/14/18 History Levothyroxine Sodium [Synthroid] 125 mcg PO [id number] 12/05/14 05/14/18 History Multivitamins, Thera [Multivitamin 1 tab PO DAILY 05/24/17 05/14/18 History (formulary)] Atorvastatin Calcium [Lipitor] 40 mg PO HS 06/12/17 05/14/18 History Citalopram Hydrobromide [CeleXA] 20 mg PO DAILY 10/22/17 05/14/18 History metFORMIN HCL 1,000 mg PO BID #0 12/08/17 05/14/18 Rx Cetirizine HCl 10 mg PO DAILY 03/30/18 05/14/18 History Pantoprazole [Protonix] 40 mg PO DAILY 03/30/18 05/14/18 History Potassium Chloride ER [K-Dur 10] 10 meq PO BID 03/30/18 05/14/18 History HYDROcodone/APAP 7.5-325MG [Coyote 1 tab PO Q6HR PRN 05/14/18 05/14/18 History 7.5-325] Allergies Allergy/AdvReac Type Severity Reaction Status Date / Time haloperidol [From Haldol] Allergy Unknown Verified 05/14/18 14:36 haloperidol lactate Allergy Unknown Verified 05/14/18 14:36 [From Haldol] Iodinated Contrast- Oral and Allergy Rash/Hives Verified 05/14/18 14:36 IV Dye [Iodinated Contrast Media - IV Dye] ciprofloxacin [From Cipro] AdvReac Heartburn Verified 05/14/18 14:36 steri-strips AdvReac Severe sore Uncoded 05/14/18 14:03 Physical Exam Vitals: Vital Signs Temp Pulse Resp BP BP Pulse Ox 05/16/18 06:08 98.3 F 74 17 111/63 91 L 05/15/18 22:46 98.4 F 98 18 102/58 94 L 05/15/18 14:12 98.2 F 86 18 105/66 92 L Intake and Output 05/15/18 05/16/18 05/16/18 22:59 06:59 14:59 Intake Total 240 Balance 240 Intake: Oral 240 Other: Voiding Method Toilet Toilet # Voids 2 1 2 # Bowel Movements 1 Weight 64.546 kg General appearance: The patient is alert, oriented, in no acute distress. HET: Head is normocephalic and atraumatic. Pupils are equal and reactive. Vahid pharynx is clear without lesions. Neck: Supple without lymphadenopathy. Trachea midline. Heart: S1 S2. Regular rate and rhythm. Lungs: No crackles or wheezes are heard. Abdomen: Soft, nontender, nondistended with bowel sounds. Tenderness to the right retroperitoneal region. No peritoneal signs. No palpable organomegaly or masses. Extremities: Normal skin color and turgor. No cyanosis, rash, ulceration, clubbing, or edema. Radial and pedal pulses are 2/4 bilaterally. Neurological: No focal deficits. Strength and sensation are grossly intact. Results CBC & Chem 7: 05/16/18 10:31 05/16/18 10:31 Labs: Abnormal Lab Results - Last 24 Hours (Table) 05/15/18 05/15/18 05/16/18 Range/Units 17:05 20:35 07:15 WBC (3.8-10.6) k/uL RBC (3.80-5.40) m/uL Hgb (11.4-16.0) gm/dL Hct (34.0-46.0) % MCHC (31.0-37.0) g/dL RDW (11.5-15.5) % Plt Count (150-450) k/uL Neutrophils # (Manual) (1.3-7.7) k/uL Lymphocytes # (Manual) (1.0-4.8) k/uL Monocytes # (Manual) (0-1.0) k/uL Metamyelocytes # (Man) (0) k/uL Myelocytes # (Manual) (0) k/uL Glucose (74-99) mg/dL POC Glucose (mg/dL) 308 H 285 H 353 H (75-99) mg/dL Alkaline Phosphatase (38-126) U/L Total Protein (6.3-8.2) g/dL Albumin (3.5-5.0) g/dL 05/16/18 05/16/18 05/16/18 Range/Units 10:31 10:31 11:40 WBC 21.9 H (3.8-10.6) k/uL RBC 3.28 L (3.80-5.40) m/uL Hgb 8.3 L (11.4-16.0) gm/dL Hct 29.0 L (34.0-46.0) % MCHC 28.7 L (31.0-37.0) g/dL RDW 16.8 H (11.5-15.5) % Plt Count 676 H (150-450) k/uL Neutrophils # (Manual) 19.70 H (1.3-7.7) k/uL Lymphocytes # (Manual) 0.44 L (1.0-4.8) k/uL Monocytes # (Manual) 1.53 H (0-1.0) k/uL Metamyelocytes # (Man) 0.44 H (0) k/uL Myelocytes # (Manual) 0.22 H (0) k/uL Glucose 279 H (74-99) mg/dL POC Glucose (mg/dL) 276 H (75-99) mg/dL Alkaline Phosphatase 322 H (38-126) U/L Total Protein 5.6 L (6.3-8.2) g/dL Albumin 3.0 L (3.5-5.0) g/dL CT scan - abdomen: report reviewed (Dr. Vallecillo) CT scan - chest: report reviewed (Dr. Vallecillo) CT scan - pelvis: report reviewed (Dr. Vallecillo) Assessment and Plan (1) Non Hodgkin's lymphoma Narrative/Plan: 67-year-old female admitted with dehydration underlying non-Hodgkin's B-cell lymphoma per liver biopsy most recently status post treatment February 2018 oncology request EGD colonoscopy for lymphoma surveillance concerning for progression of disease. Current Visit: Yes Status: Acute Priority: Medium Code(s): C85.90 - NON- HODGKIN LYMPHOMA, UNSPECIFIED, UNSPECIFIED SITE SNOMED Code(s): 391318587 (2) Leukocytosis Current Visit: Yes Status: Acute Code(s): D72.829 - ELEVATED WHITE BLOOD CELL COUNT, UNSPECIFIED SNOMED Code(s): 599017382 (3) Anemia Current Visit: Yes Status: Acute Code(s): D64.9 - ANEMIA, UNSPECIFIED SNOMED Code(s): 448880367 (4) Dehydration Current Visit: Yes Status: Acute Code(s): E86.0 - DEHYDRATION SNOMED Code(s): 54288999 Plan: 1. Clear liquid diet. EGD colonoscopy scheduled tomorrow. The child psychologist has discussed the risks, benefits and alternative therapies for the above-mentioned procedure and for both sedation/analgesia as well as necessary blood product administration, if indicated, as they pertain to this patient. The patient has indicated understanding and acceptance of the risks and procedures discussed. Thank you for this kind referral and the opportunity to participate in the care of your patient. This consultation was discussed with Dr. Vallecillo. The impression and plan of care have been directed as dictated.
[2018-05-16] MEDS ORDERED: BISACODYL 5 MG TABLET.DR PO STA (12:37)
[2018-05-16] MEDS ORDERED: PEG 3350-NA SULF,BICARB,CL/KCL 4,000 ML BOTTLE PO ONE (16:00)
[2018-05-16 16:51] LABS: Iron Saturation 7.31 (12.00-45.00)
[2018-05-16 17:18] LABS: Glucose,Whole Blood 238 mg/dL (75-99)
[2018-05-16] MEDS: MORPHINE SULFATE 4 MG/ML SYRINGE IV PRN (19:00)
[2018-05-16] MEDS: ATORVASTATIN 40 MG TAB PO SCH (20:26)
[2018-05-16 20:48] LABS: Glucose,Whole Blood 256 mg/dL (75-99)
--- NOTE | 2018-05-16 22:41 | P.PN ---
Subjective Progress Note Date: 05/16/18 Principal diagnosis: Worsening weakness, fatigue and debility CT chest abdomen and pelvis appears to show worsening mid abdominal retroperitoneal adenopathy which correlates with ulceration CT hypermetabolic uptake. New small bilateral pleural effusions and mild interstitial edema identified bilaterally. No new thoracic or pelvic adenopathy seen. Unable to differentiate these findings. Awaiting GI input and possible endoscopy for further work-up. Uric acid and LDH ok. Objective - Vital Signs Vital signs: Vital Signs Temp 98.2 F 05/16/18 14:50 Pulse 100 05/16/18 14:50 Resp 16 05/16/18 14:50 BP 116/64 05/16/18 14:50 Pulse Ox 92 L 05/16/18 14:50 Intake & Output 05/16/18 05/16/18 05/17/18 06:59 18:59 06:59 Output Total 0 Balance 0 Weight 64.546 kg Output: Emesis 0 Other: Voiding Method Toilet Toilet # Voids 1 2 0 # Bowel Movements 1 0 - Exam Gen: ALert, No acute distress Head: NC, NT Neck Suppple No adenopathy on palpation Lungs: Diminished bibasilar, no increased effort Heart RRR, S1 Abdomen: Soft, Tender to palpiation Neuro: No sensory or motor deficits - Labs CBC & Chem 7: 05/16/18 10:31 05/16/18 10:31 Labs: Abnormal Lab Results - Last 24 Hours (Table) 05/16/18 05/16/18 05/16/18 Range/Units 07:15 10:31 10:31 WBC 21.9 H (3.8-10.6) k/uL RBC 3.28 L (3.80-5.40) m/uL Hgb 8.3 L (11.4-16.0) gm/dL Hct 29.0 L (34.0-46.0) % MCHC 28.7 L (31.0-37.0) g/dL RDW 16.8 H (11.5-15.5) % Plt Count 676 H (150-450) k/uL Neutrophils # (Manual) 19.70 H (1.3-7.7) k/uL Lymphocytes # (Manual) 0.44 L (1.0-4.8) k/uL Monocytes # (Manual) 1.53 H (0-1.0) k/uL Metamyelocytes # (Man) 0.44 H (0) k/uL Myelocytes # (Manual) 0.22 H (0) k/uL Glucose (74-99) mg/dL POC Glucose (mg/dL) 353 H (75-99) mg/dL Iron 19 L (50-170) ug/dL Iron Saturation 7.31 L (12.00-45.00) Ferritin 1183.1 H (10.0-291.0) ng/mL Alkaline Phosphatase (38-126) U/L Total Protein (6.3-8.2) g/dL Albumin (3.5-5.0) g/dL 05/16/18 05/16/18 05/16/18 Range/Units 10:31 11:40 17:13 WBC (3.8-10.6) k/uL RBC (3.80-5.40) m/uL Hgb (11.4-16.0) gm/dL Hct (34.0-46.0) % MCHC (31.0-37.0) g/dL RDW (11.5-15.5) % Plt Count (150-450) k/uL Neutrophils # (Manual) (1.3-7.7) k/uL Lymphocytes # (Manual) (1.0-4.8) k/uL Monocytes # (Manual) (0-1.0) k/uL Metamyelocytes # (Man) (0) k/uL Myelocytes # (Manual) (0) k/uL Glucose 279 H (74-99) mg/dL POC Glucose (mg/dL) 276 H 238 H (75-99) mg/dL Iron (50-170) ug/dL Iron Saturation (12.00-45.00) Ferritin (10.0-291.0) ng/mL Alkaline Phosphatase 322 H (38-126) U/L Total Protein 5.6 L (6.3-8.2) g/dL Albumin 3.0 L (3.5-5.0) g/dL 05/16/18 Range/Units 20:46 WBC (3.8-10.6) k/uL RBC (3.80-5.40) m/uL Hgb (11.4-16.0) gm/dL Hct (34.0-46.0) % MCHC (31.0-37.0) g/dL RDW (11.5-15.5) % Plt Count (150-450) k/uL Neutrophils # (Manual) (1.3-7.7) k/uL Lymphocytes # (Manual) (1.0-4.8) k/uL Monocytes # (Manual) (0-1.0) k/uL Metamyelocytes # (Man) (0) k/uL Myelocytes # (Manual) (0) k/uL Glucose (74-99) mg/dL POC Glucose (mg/dL) 256 H (75-99) mg/dL Iron (50-170) ug/dL Iron Saturation (12.00-45.00) Ferritin (10.0-291.0) ng/mL Alkaline Phosphatase (38-126) U/L Total Protein (6.3-8.2) g/dL Albumin (3.5-5.0) g/dL Assessment and Plan Plan: Assessment and Recommendations: 1. NHL: - Most recently status post treatment with Hycela and bendamustine, status Post Cycle 2 03/06/18 - Prior to above status post treatment with R-Ceop - Concern for progrssion: CT C/A/P reviewed and discussed with patient, catalina portillo progression cannot be ruled out. - GI Work-up assess for bowel wall involvement, possible EGD - LDH, Uric Acid 2. Anorexia and weight loss: - Megace recently ordered 3. Worsening weakness and fatigue and debility 4. Persisitent Nausea and Abdominal Pain: - GI WOrk-up and CT Scans 5. Normocytic Anemia: Secondary to chemo and lymphoma - CBC and CMP in am Physcian Attest: I have completed the full history and physical and developed the complete impression and plan, agree with above, dictated as a scribe
[2018-05-17] MEDS: ONDANSETRON 4 MG/2 ML VIAL IVP PRN (04:35)
[2018-05-17] MEDS: MORPHINE SULFATE 4 MG/ML SYRINGE IV PRN (04:39)
[2018-05-17 07:25] LABS: Glucose,Whole Blood 266 mg/dL (75-99)
[2018-05-17] MEDS: LEVOTHYROXINE 125 MCG TAB PO SCH (08:04)
[2018-05-17] MEDS: FUROSEMIDE 20 MG TAB PO SCH (08:04)
[2018-05-17] MEDS: INSULIN ASPART (NovoLOG) 100 UNIT/ML VIAL SQ SCH ×4 (08:04→20:55)
[2018-05-17] MEDS: PANTOPRAZOLE 40 MG TABLET PO SCH (08:04)
[2018-05-17] MEDS: CITALOPRAM HYDROBROMIDE 20 MG TAB PO SCH (08:04)
[2018-05-17] MEDS: GABAPENTIN 100 MG CAP PO SCH ×2 (08:04→19:49)
[2018-05-17] MEDS: HYDROcodone/APAP 5-325MG 1 EACH TAB PO PRN ×3 (09:15→20:58)
--- NOTE | 2018-05-17 11:10 | P.PN ---
Subjective EGD planned for this afternoon. Patient nothing by mouth. Patient declined prep for colonoscopy we'll consider doing outpatient. States back pain improved Objective - Vital Signs Vital signs: Vital Signs Temp 98.7 F 05/17/18 07:07 Pulse 99 05/17/18 07:07 Resp 18 05/17/18 07:07 BP 117/65 05/17/18 07:07 Pulse Ox 93 L 05/17/18 07:07 Intake & Output 05/16/18 05/17/18 05/17/18 18:59 06:59 18:59 Output Total 0 Balance 0 Weight 63.7 kg Output: Emesis 0 Other: Voiding Method Toilet Toilet # Voids 2 1 # Bowel Movements 0 - Constitutional General appearance: Present: mild distress - EENT Eyes: Present: PERRLA Ears: bilateral: normal - Neck Neck: Present: normal ROM - Respiratory Respiratory: bilateral: CTA - Cardiovascular Rhythm: regular - Gastrointestinal General gastrointestinal: Present: normal bowel sounds, soft - Integumentary Integumentary: Present: normal - Neurologic Neurologic: Present: CNII-XII intact - Musculoskeletal Musculoskeletal: Present: generalized weakness - Psychiatric Psychiatric: Present: A&O x's 3, appropriate affect, intact judgment & insight - Labs CBC & Chem 7: 05/16/18 10:31 05/16/18 10:31 Labs: Abnormal Lab Results - Last 24 Hours (Table) 05/16/18 05/16/18 05/16/18 Range/Units 10:31 10:31 10:31 WBC 21.9 H (3.8-10.6) k/uL RBC 3.28 L (3.80-5.40) m/uL Hgb 8.3 L (11.4-16.0) gm/dL Hct 29.0 L (34.0-46.0) % MCHC 28.7 L (31.0-37.0) g/dL RDW 16.8 H (11.5-15.5) % Plt Count 676 H (150-450) k/uL Neutrophils # (Manual) 19.70 H (1.3-7.7) k/uL Lymphocytes # (Manual) 0.44 L (1.0-4.8) k/uL Monocytes # (Manual) 1.53 H (0-1.0) k/uL Metamyelocytes # (Man) 0.44 H (0) k/uL Myelocytes # (Manual) 0.22 H (0) k/uL Glucose 279 H (74-99) mg/dL POC Glucose (mg/dL) (75-99) mg/dL Iron 19 L (50-170) ug/dL Iron Saturation 7.31 L (12.00-45.00) Ferritin 1183.1 H (10.0-291.0) ng/mL Alkaline Phosphatase 322 H (38-126) U/L Total Protein 5.6 L (6.3-8.2) g/dL Albumin 3.0 L (3.5-5.0) g/dL 05/16/18 05/16/18 05/16/18 Range/Units 11:40 17:13 20:46 WBC (3.8-10.6) k/uL RBC (3.80-5.40) m/uL Hgb (11.4-16.0) gm/dL Hct (34.0-46.0) % MCHC (31.0-37.0) g/dL RDW (11.5-15.5) % Plt Count (150-450) k/uL Neutrophils # (Manual) (1.3-7.7) k/uL Lymphocytes # (Manual) (1.0-4.8) k/uL Monocytes # (Manual) (0-1.0) k/uL Metamyelocytes # (Man) (0) k/uL Myelocytes # (Manual) (0) k/uL Glucose (74-99) mg/dL POC Glucose (mg/dL) 276 H 238 H 256 H (75-99) mg/dL Iron (50-170) ug/dL Iron Saturation (12.00-45.00) Ferritin (10.0-291.0) ng/mL Alkaline Phosphatase (38-126) U/L Total Protein (6.3-8.2) g/dL Albumin (3.5-5.0) g/dL 05/17/18 Range/Units 07:18 WBC (3.8-10.6) k/uL RBC (3.80-5.40) m/uL Hgb (11.4-16.0) gm/dL Hct (34.0-46.0) % MCHC (31.0-37.0) g/dL RDW (11.5-15.5) % Plt Count (150-450) k/uL Neutrophils # (Manual) (1.3-7.7) k/uL Lymphocytes # (Manual) (1.0-4.8) k/uL Monocytes # (Manual) (0-1.0) k/uL Metamyelocytes # (Man) (0) k/uL Myelocytes # (Manual) (0) k/uL Glucose (74-99) mg/dL POC Glucose (mg/dL) 266 H (75-99) mg/dL Iron (50-170) ug/dL Iron Saturation (12.00-45.00) Ferritin (10.0-291.0) ng/mL Alkaline Phosphatase (38-126) U/L Total Protein (6.3-8.2) g/dL Albumin (3.5-5.0) g/dL Assessment and Plan Plan: Assessment Weakness Anorexia with weight loss Anemia chronic disease lymphoma on chemotherapy Leukocytosis Non-Hodgkin's lymphoma Nausea dehydration Diabetes type 2 Hypertension Hyperlipidemia sleep apnea with CPAP machine Hypothyroidism Sciatica right side Plan Continue consultation with Dr. Gracia Continue consultation with gastroenterology EGD plan for this afternoon Hopeful discharge soon
[2018-05-17 11:34] LABS: Glucose,Whole Blood 246 mg/dL (75-99)
[2018-05-17] MEDS ORDERED: PROPOFOL 10 MG/ML 20 ML VIAL IV ONE ×2 (14:03)
[2018-05-17] MEDS ORDERED: LIDOCAINE 1% INJ 10MG/ML (20 ML MDV) ONE (14:03)
[2018-05-17] MEDS ORDERED: IV FLUID CONTINUATION 1,000 ML IV ONE (14:03)
--- NOTE | 2018-05-17 14:45 | P.PCN ---
Date of Procedure: 05/17/18 Description of Procedure: BRIEF HISTORY: 67-year-old female history of non-Hodgkin's B-cell lymphoma confirmed via liver biopsy last summer. Patient presents with concerns for dehydration. She has a past history of memory impairment. Patient has had decreased oral intake and ongoing nausea secondary to her chemotherapy. Last chemotherapy early February 2018. Oncology requested EGD colonoscopy surveillance to rule out bowel wall lymphoma concern for progression of disease. Patient denies abdominal pain she reports lower back pain most in the right retroperitoneal region. Denies hematemesis hematochezia melena. No fever or chills. Last EGD colonoscopy of record August 2013; upper endoscopy no evidence of peptic ulcer disease lower endoscopy evidence of torturous colon colonoscopy incomplete multiple colonic diverticuli internal hemorrhoids. Patient was unable to tolerate prep for a colonoscopy. CT chest abdomen and pelvis worsening mid abdominal retroperitoneal adenopathy which correlates with ulceration CT hypermetabolic uptake. New small bilateral pleural effusions and mild interstitial edema identified bilaterally. No new thoracic or pelvic adenopathy seen.. PROCEDURE PERFORMED: Esophagogastroduodenoscopy with biopsy. PREOPERATIVE DIAGNOSIS: Anemia, history of non-Hodgkin's B-cell lymphoma. ESTIMATED BLOOD LOSS: Minimal. IV sedation per anesthesia. PROCEDURE: After informed consent was obtained, the patient was brought into the endoscopy unit. IV sedation was administered by Anesthesia under continuous monitoring. Initially the Olympus GIF-190 video endoscope was inserted into the mouth. Esophagus intubated without any difficulty. It was gradually advanced into the stomach and duodenum and carefully examined. The bulb and the second part of the duodenum appeared normal, with numerous biopsies taken to rule out lymphoma. The scope at this time was withdrawn to the stomach, adequately insufflated with air, and upon careful examination, mucosa of the antrum, body, cardia and the fundus appeared normal except for some mild scattered erythema in the antrum and body suggestive of gastritis. Extensive biopsies taken of the antrum and body, as well as see cardia and fundus. The scope was then withdrawn into the esophagus. The GE junction was located at 39 cm from the incisors. The esophagus appeared normal. There were no erosions or ulcerations seen, and biopsies were taken. The patient tolerated the procedure well. IMPRESSION: 1. Mild gastritis. 2. Random biopsies of the duodenum, antrum and body, cardia and fundus, and esophagus. RECOMMENDATIONS: The findings of this examination were discussed with the patient. Alexsanderay to resume diet. Patient on interested in inpatient colonoscopy at this time due to inability to tolerate prep. Await pathology from biopsies.
--- NOTE | 2018-05-17 15:30 | P.PN ---
Subjective Progress Note Date: 05/17/18 Principal diagnosis: Worsening weakness, fatigue and debility Status Post endoscopy today. No apparent mass, biopsy were taken and gastritis mentioned. No CBC today, Will order Objective - Vital Signs Vital signs: Vital Signs Temp 98.6 F 05/17/18 14:57 Pulse 67 05/17/18 14:57 Resp 16 05/17/18 14:57 BP 94/58 05/17/18 14:57 Pulse Ox 94 L 05/17/18 14:57 Intake & Output 05/16/18 05/17/18 05/17/18 18:59 06:59 18:59 Intake Total 300 Output Total 0 Balance 0 300 Weight 63.7 kg Intake: IV 300 Output: Emesis 0 Other: Voiding Method Toilet Toilet # Voids 2 1 2 # Bowel Movements 0 - Exam Gen: ALert, No acute distress Head: NC, NT Neck Suppple No adenopathy on palpation Lungs: Diminished bibasilar, no increased effort Heart RRR, S1 Abdomen: Soft, Tender to palpiation Neuro: No sensory or motor deficits - Labs CBC & Chem 7: 05/18/18 14:11 05/18/18 14:11 Labs: Abnormal Lab Results - Last 24 Hours (Table) 05/16/18 05/16/18 05/16/18 Range/Units 10:31 17:13 20:46 POC Glucose (mg/dL) 238 H 256 H (75-99) mg/dL Iron 19 L (50-170) ug/dL Iron Saturation 7.31 L (12.00-45.00) Ferritin 1183.1 H (10.0-291.0) ng/mL 05/17/18 05/17/18 Range/Units 07:18 11:20 POC Glucose (mg/dL) 266 H 246 H (75-99) mg/dL Iron (50-170) ug/dL Iron Saturation (12.00-45.00) Ferritin (10.0-291.0) ng/mL Assessment and Plan Plan: Assessment and Recommendations: 1. NHL: - Most recently status post treatment with Hycela and bendamustine, status Post Cycle 2 03/06/18 - Prior to above status post treatment with R-Ceop - Concern for progrssion: CT C/A/P reviewed and discussed with patient, definite progression cannot be ruled out. - Status Post EGD today with GI - LDH, Uric Acid 2. Anorexia and weight loss: - Megace recently ordered 3. Worsening weakness and fatigue and debility 4. Persisitent Nausea and Abdominal Pain: - GI WOrk-up and CT Scans 5. Normocytic Anemia: Secondary to chemo and lymphoma - CBC and CMP in am Await CBC and CMP today Await Pathology results from [facility] PT/OT evaluation and treat foe debility Physcian Attest: I have completed the full history and physical and developed the complete impression and plan, agree with above, dictated as a scribe
[2018-05-17 16:09] LABS: ALT 26 U/L (9-52); AST 18 U/L (14-36); Albumin 2.6 g/dL (3.5-5.0); Alkaline Phosphatase 290 U/L (38-126); Anion Gap 6 mmol/L; Blood Urea Nitrogen 14 mg/dL (7-17); Calcium 9.9 mg/dL (8.4-10.2); Carbon Dioxide 29 mmol/L (22-30); Chloride 104 mmol/L (98-107); Glucose 175 mg/dL (74-99); Sodium 139 mmol/L (137-145); Total Bilirubin 0.4 mg/dL (0.2-1.3); Total Protein 5.1 g/dL (6.3-8.2)
[2018-05-17 16:12] LABS: Anisocytosis Slight; HCT 25.9 % (34.0-46.0); HGB 7.6 gm/dL (11.4-16.0); Hypochromasia Marked; MCH 25.4 pg (25.0-35.0); MCHC 29.2 g/dL (31.0-37.0); MCV 86.8 fL (80.0-100.0); Mean Platelet Volume 6.7; Platelet Count 547 k/uL (150-450); RBC 2.99 m/uL (3.80-5.40); WBC 12.8 k/uL (3.8-10.6)
[2018-05-17 16:40] LABS: Band Neutrophils % 23 %; Basophils # (M) 0.13 k/uL (0-0.2); Eosinophils # (M) 0.26 k/uL (0-0.7); Lymphocytes # (M) 0.64 k/uL (1.0-4.8); Monocytes # (M) 0.64 k/uL (0-1.0); Neutrophils % (M) 66 %; Nucleated Red Blood Cells 0 /100 WBC (0-0); Total Cells Counted 200
[2018-05-17 17:16] LABS: Glucose,Whole Blood 204 mg/dL (75-99)
[2018-05-17] MEDS: ATORVASTATIN 40 MG TAB PO SCH (19:45)
[2018-05-17 20:33] LABS: Glucose,Whole Blood 360 mg/dL (75-99)
[2018-05-18] MEDS: HYDROcodone/APAP 5-325MG 1 EACH TAB PO PRN ×2 (05:06→11:54)
[2018-05-18] MEDS: LEVOTHYROXINE 125 MCG TAB PO SCH (05:06)
[2018-05-18 06:16] VITALS: RESP 16
[2018-05-18 07:02] LABS: Glucose,Whole Blood 312 mg/dL (75-99)
[2018-05-18] MEDS: PANTOPRAZOLE 40 MG TABLET PO SCH (07:57)
[2018-05-18] MEDS: FUROSEMIDE 20 MG TAB PO SCH (07:57)
[2018-05-18] MEDS: INSULIN ASPART (NovoLOG) 100 UNIT/ML VIAL SQ SCH ×2 (07:57→12:46)
[2018-05-18] MEDS: CITALOPRAM HYDROBROMIDE 20 MG TAB PO SCH (07:57)
[2018-05-18] MEDS: GABAPENTIN 100 MG CAP PO SCH (07:58)
[2018-05-18 11:31] LABS: Glucose,Whole Blood 406 mg/dL (75-99)
--- NOTE | 2018-05-18 11:40 | XR ---
EXAMINATION TYPE: XR chest 1V DATE OF EXAM: 05/18/2018 CLINICAL HISTORY: Nonconscious lymphoma with shortness of breath and anemia. TECHNIQUE: Single AP portable upright view of the chest is obtained. COMPARISON: Chest x-ray from March 09, 2018. Most recent CT 3 days ago. FINDINGS: There is stable right internal jugular Mediport catheter. There is persistent cardiomegaly with small bilateral pleural effusions and right greater than left bibasilar opacities. Upper lungs remain clear without pneumothorax. Osseous structures are intact. IMPRESSION: Correlate for CHF exacerbation or fluid overload state as there is cardiomegaly with smal l bilateral pleural effusions and bibasilar acute infiltrate and/or atelectasis all redemonstrated. N o significant change from recent CT.
[2018-05-18 14:34] LABS: ALT 26 U/L (9-52); AST 16 U/L (14-36); Albumin 2.6 g/dL (3.5-5.0); Alkaline Phosphatase 306 U/L (38-126); Anion Gap 10 mmol/L; Blood Urea Nitrogen 16 mg/dL (7-17); Calcium 9.6 mg/dL (8.4-10.2); Carbon Dioxide 26 mmol/L (22-30); Chloride 100 mmol/L (98-107); Glucose 422 mg/dL (74-99); Potassium 3.5 mmol/L (3.5-5.1); Sodium 136 mmol/L (137-145); Total Bilirubin 0.4 mg/dL (0.2-1.3)
[2018-05-18 14:50] VITALS: BP 102/56; PULSE 87; TEMP 98
[2018-05-18 14:54] LABS: Anisocytosis Slight; HCT 27.5 % (34.0-46.0); HGB 7.7 gm/dL (11.4-16.0); Hypochromasia Marked; MCH 24.5 pg (25.0-35.0); MCHC 27.9 g/dL (31.0-37.0); Mean Platelet Volume 7.6; Platelet Count 538 k/uL (150-450); RBC 3.12 m/uL (3.80-5.40); RDW 17.2 % (11.5-15.5); WBC 11.6 k/uL (3.8-10.6)
[2018-05-18 16:02] LABS: Anisocytosis (M) Present; Band Neutrophils % 14 %; Hypochromasia (M) Present; Monocytes # (M) 0.93 k/uL (0-1.0); Neutrophils % (M) 72 %; Nucleated Red Blood Cells 0 /100 WBC (0-0); Total Cells Counted 100
[2018-05-18 16:37] LABS: Glucose,Whole Blood 377 mg/dL (75-99)
--- NOTE | 2018-05-18 16:41 | P.DS ---
Providers Date of admission: 05/14/18 16:51 Expected date of discharge: 05/18/18 Attending physician: Leonard Solano Consults: 05/14/18 17:07 Consult Physician Urgent Consulting Provider: Wicho Gracia Consult Reason/Comments: Non-Hodgkin's lymphoma, established patient Do you want consulting provider notified?: Yes Primary care physician: Leonard Solano Hospital Course: 67-year-old female history of non-Hodgkin's B-cell lymphoma confirmed via liver biopsy last summer. Patient presents with concerns for dehydration. She has a past history of memory impairment. Patient has had decreased oral intake and ongoing nausea secondary to her chemotherapy. Last chemotherapy early February 2018. Oncology requested EGD colonoscopy surveillance to rule out bowel wall lymphoma concern for progression of disease. Patient denies abdominal pain she reports lower back pain most in the right retroperitoneal region. Denies hematemesis hematochezia melena. No fever or chills. Last EGD colonoscopy of record August 2013; upper endoscopy no evidence of peptic ulcer disease lower endoscopy evidence of torturous colon colonoscopy incomplete multiple colonic diverticuli internal hemorrhoids. Patient was unable to tolerate prep for a colonoscopy. CT chest abdomen and pelvis worsening mid abdominal retroperitoneal adenopathy which correlates with ulceration CT hypermetabolic uptake. New small bilateral pleural effusions and mild interstitial edema identified bilaterally. No new thoracic or pelvic adenopathy seen.. Patient underwent EGD with biopsy on 05/17/2018 showing mild gastritis; patient was recommended inpatient colonoscopy patient refused secondary to being able to tolerate preparation; patient will be discharged home with recommendations to follow-up with GI and oncology as an outpatient Patient Condition at Discharge: Fair Plan - Discharge Summary Discharge Rx Participant: No New Discharge Prescriptions: Continue Gabapentin 100 mg PO QAM Furosemide 20 mg PO DAILY Gabapentin [Neurontin] 200 mg PO HS Levothyroxine Sodium [Synthroid] 125 mcg PO MOTUWETHFRSA Multivitamins, Thera [Multivitamin (formulary)] 1 tab PO DAILY Atorvastatin Calcium [Lipitor] 40 mg PO HS Citalopram Hydrobromide [CeleXA] 20 mg PO DAILY metFORMIN HCL 1,000 mg PO BID #0 Potassium Chloride ER [K-Dur 10] 10 meq PO BID Cetirizine HCl 10 mg PO DAILY Pantoprazole [Protonix] 40 mg PO DAILY HYDROcodone/APAP 7.5-325MG [[place] 7.5-325] 1 tab PO Q6HR PRN PRN Reason: Pain Discharge Medication List Furosemide 20 mg PO DAILY 09/19/13 [History] Gabapentin 100 mg PO QAM 09/19/13 [History] Gabapentin [Neurontin] 200 mg PO HS 12/05/14 [History] Levothyroxine Sodium [Synthroid] 125 mcg PO MOTUWETHFRSA 12/05/14 [History] Multivitamins, Thera [Multivitamin (formulary)] 1 tab PO DAILY 05/24/17 [History] Atorvastatin Calcium [Lipitor] 40 mg PO HS 06/12/17 [History] Citalopram Hydrobromide [CeleXA] 20 mg PO DAILY 10/22/17 [History] metFORMIN HCL 1,000 mg PO BID #0 12/08/17 [Rx] Cetirizine HCl 10 mg PO DAILY 03/30/18 [History] Pantoprazole [Protonix] 40 mg PO DAILY 03/30/18 [History] Potassium Chloride ER [K-Dur 10] 10 meq PO BID 03/30/18 [History] HYDROcodone/APAP 7.5-325MG [[place] 7.5-325] 1 tab PO Q6HR PRN 05/14/18 [History] Follow up Appointment(s)/Referral(s): Leonard Solano MD [Primary Care Provider] - 05/23/18 11:20 am Patient Instructions/Handouts: Anemia (DC) Discharge Disposition: HOME SELF-CARE
--- NOTE | 2018-05-18 16:43 | P.PN ---
Subjective Progress Note Date: 05/18/18 Principal diagnosis: Worsening weakness, fatigue and debility Status Post endoscopy today. No apparent mass, biopsy were taken and gastritis mentioned. No CBC today, 7.7 stable Objective - Vital Signs Vital signs: Vital Signs Temp 98.0 F 05/18/18 14:25 Pulse 87 05/18/18 14:25 Resp 16 05/18/18 14:25 BP 102/56 05/18/18 14:25 Pulse Ox 91 L 05/18/18 14:25 Intake & Output 05/17/18 05/18/18 05/18/18 18:59 06:59 18:59 Intake Total 900 Output Total 0 Balance 900 Weight 63.9 kg Intake: IV 300 Oral 600 Output: Emesis 0 Other: Voiding Method Toilet # Voids 1 1 2 # Bowel Movements 0 - Exam Gen: ALert, No acute distress Head: NC, NT Neck Suppple No adenopathy on palpation Lungs: Diminished bibasilar, no increased effort Heart RRR, S1 Abdomen: Soft, Tender to palpiation Neuro: No sensory or motor deficits - Labs CBC & Chem 7: 05/18/18 14:11 05/18/18 14:11 Labs: Abnormal Lab Results - Last 24 Hours (Table) 05/17/18 05/17/18 05/18/18 Range/Units 17:10 20:32 06:44 WBC (3.8-10.6) k/uL RBC (3.80-5.40) m/uL Hgb (11.4-16.0) gm/dL Hct (34.0-46.0) % MCH (25.0-35.0) pg MCHC (31.0-37.0) g/dL RDW (11.5-15.5) % Plt Count (150-450) k/uL Neutrophils # (Manual) (1.3-7.7) k/uL Lymphocytes # (Manual) (1.0-4.8) k/uL Sodium (137-145) mmol/L Glucose (74-99) mg/dL POC Glucose (mg/dL) 204 H 360 H 312 H (75-99) mg/dL Alkaline Phosphatase (38-126) U/L Total Protein (6.3-8.2) g/dL Albumin (3.5-5.0) g/dL 05/18/18 05/18/18 05/18/18 Range/Units 11:28 14:11 14:11 WBC 11.6 H (3.8-10.6) k/uL RBC 3.12 L (3.80-5.40) m/uL Hgb 7.7 L (11.4-16.0) gm/dL Hct 27.5 L (34.0-46.0) % MCH 24.5 L (25.0-35.0) pg MCHC 27.9 L (31.0-37.0) g/dL RDW 17.2 H (11.5-15.5) % Plt Count 538 H (150-450) k/uL Neutrophils # (Manual) 9.90 H (1.3-7.7) k/uL Lymphocytes # (Manual) 0.70 L (1.0-4.8) k/uL Sodium 136 L (137-145) mmol/L Glucose 422 H (74-99) mg/dL POC Glucose (mg/dL) 406 H (75-99) mg/dL Alkaline Phosphatase 306 H (38-126) U/L Total Protein 5.0 L (6.3-8.2) g/dL Albumin 2.6 L (3.5-5.0) g/dL 05/18/18 Range/Units 16:35 WBC (3.8-10.6) k/uL RBC (3.80-5.40) m/uL Hgb (11.4-16.0) gm/dL Hct (34.0-46.0) % MCH (25.0-35.0) pg MCHC (31.0-37.0) g/dL RDW (11.5-15.5) % Plt Count (150-450) k/uL Neutrophils # (Manual) (1.3-7.7) k/uL Lymphocytes # (Manual) (1.0-4.8) k/uL Sodium (137-145) mmol/L Glucose (74-99) mg/dL POC Glucose (mg/dL) 377 H (75-99) mg/dL Alkaline Phosphatase (38-126) U/L Total Protein (6.3-8.2) g/dL Albumin (3.5-5.0) g/dL Assessment and Plan Plan: Assessment and Recommendations: 1. NHL: - Most recently status post treatment with Hycela and bendamustine, status Post Cycle 2 03/06/18 - Prior to above status post treatment with R-Ceop - Concern for progrssion: CT C/A/P reviewed and discussed with patient, definite progression cannot be ruled out. - Status Post EGD today with GI - LDH, Uric Acid 2. Anorexia and weight loss: - Megace recently ordered 3. Worsening weakness and fatigue and debility 4. Persisitent Nausea and Abdominal Pain: - GI WOrk-up and CT Scans 5. Normocytic Anemia: Secondary to chemo and lymphoma - CBC and CMP in am Await CBC and CMP today Await Pathology results from [facility] PT/OT evaluation and treat foe debility Follow-up :Samia out patient nxt week Physcian Attest: I have completed the full history and physical and developed the complete impression and plan, agree with above, dictated as a scribe
--- NOTE | 2018-05-19 00:22 | P.PN ---
Subjective Progress Note Date: 05/19/18 The patient has improved with hydration. She states that nausea has decreased. She is tolerating her diet well and is to be discharged today. No fever/chills/diarrhea. Objective - Vital Signs Vital signs: Vital Signs Temp 98.0 F 05/18/18 14:25 Pulse 87 05/18/18 14:25 Resp 16 05/18/18 14:25 BP 102/56 05/18/18 14:25 Pulse Ox 91 L 05/18/18 14:25 Intake & Output 05/18/18 05/18/18 05/19/18 06:59 18:59 06:59 Weight 63.9 kg Other: # Voids 1 1 - Constitutional General appearance: Present: no acute distress - EENT Eyes: Present: EOMI ENT: Present: hearing grossly normal, normal oropharynx - Respiratory Respiratory: bilateral: CTA - Cardiovascular Rhythm: regular Heart sounds: normal: S1, S2 - Integumentary Integumentary: Present: normal - Neurologic Neurologic: Present: CNII-XII intact - Musculoskeletal Musculoskeletal: Present: generalized weakness, strength equal bilaterally - Psychiatric Psychiatric: Present: A&O x's 3, appropriate affect - Labs CBC & Chem 7: 05/18/18 14:11 05/18/18 14:11 Labs: Abnormal Lab Results - Last 24 Hours (Table) 05/18/18 05/18/18 05/18/18 Range/Units 06:44 11:28 14:11 WBC 11.6 H (3.8-10.6) k/uL RBC 3.12 L (3.80-5.40) m/uL Hgb 7.7 L (11.4-16.0) gm/dL Hct 27.5 L (34.0-46.0) % MCH 24.5 L (25.0-35.0) pg MCHC 27.9 L (31.0-37.0) g/dL RDW 17.2 H (11.5-15.5) % Plt Count 538 H (150-450) k/uL Neutrophils # (Manual) 9.90 H (1.3-7.7) k/uL Lymphocytes # (Manual) 0.70 L (1.0-4.8) k/uL Sodium (137-145) mmol/L Glucose (74-99) mg/dL POC Glucose (mg/dL) 312 H 406 H (75-99) mg/dL Alkaline Phosphatase (38-126) U/L Total Protein (6.3-8.2) g/dL Albumin (3.5-5.0) g/dL 05/18/18 05/18/18 Range/Units 14:11 16:35 WBC (3.8-10.6) k/uL RBC (3.80-5.40) m/uL Hgb (11.4-16.0) gm/dL Hct (34.0-46.0) % MCH (25.0-35.0) pg MCHC (31.0-37.0) g/dL RDW (11.5-15.5) % Plt Count (150-450) k/uL Neutrophils # (Manual) (1.3-7.7) k/uL Lymphocytes # (Manual) (1.0-4.8) k/uL Sodium 136 L (137-145) mmol/L Glucose 422 H (74-99) mg/dL POC Glucose (mg/dL) 377 H (75-99) mg/dL Alkaline Phosphatase 306 H (38-126) U/L Total Protein 5.0 L (6.3-8.2) g/dL Albumin 2.6 L (3.5-5.0) g/dL Assessment and Plan (1) Nausea Narrative/Plan: This has been persistent intermittently as an outpatient, leading to decreased oral intake and dehydration, causing this admission. Patient's symptoms are improved. She had an endoscopic workup, which revealed no obvious abnormality. Biopsies were done to rule out submucosal lymphoma involvement. These are pending. Ok to discharge the patient on oral anti emetics when necessary. The patient CT scan appears to show more progression compared to his recent imaging. This could be the cause of her nausea, if mucosal biopsies come back negative Status: Acute Code(s): R11.0 - NAUSEA SNOMED Code(s): 439973269 (2) History of lymphoma Narrative/Plan: The patient's imaging prior to this admission had not shown any definite evidence of progression. However CAT scans during this admission does appear to indicate progression. These results were discussed with the patient, along with implications. Await results of the biopsies. If these are positive this would indicate progression. If negative, we will need to consider biopsy of retroperitoneal nodes to define the specific lymphoma type better. The patient has had both small and large B-cell lymphoma in the past In case of progression, resumption of treatment may be challenging, given her poor tolerance of regimens so far Status: Acute Code(s): Z85.79 - PRSNL HX OF MALIG NEOPLM OF LYMPHOID, HEMATPOETC & REL TISS SNOMED Code(s): 300123162
== END 2018-05-18 17:06 | disposition home or self-care (01) ==
LOC: EC 13:36 → 3NMEDONC 16:51 → INTOOBSV 16:51 → 4MS4W 17:27
PROVIDERS: ADMIT Family Medicine; ATTEND Family Medicine
DX: K29.70 Gastritis, unspecified, without bleeding (principal); R41.3 Other amnesia; C85.90 Non-Hodgkin lymphoma, unspecified, unspecified site; J90 Pleural effusion, not elsewhere classified; D63.8 Anemia in other chronic diseases classified elsewhere; G89.29 Other chronic pain; Z92.21 Personal history of antineoplastic chemotherapy; C85.10 Unspecified B-cell lymphoma, unspecified site; I11.0 Hypertensive heart disease with heart failure; I50.9 Heart failure, unspecified; E78.5 Hyperlipidemia, unspecified; E89.0 Postprocedural hypothyroidism; I25.2 Old myocardial infarction; F41.9 Anxiety disorder, unspecified; R26.9 Unspecified abnormalities of gait and mobility; E86.0 Dehydration; D70.9 Neutropenia, unspecified; D64.81 Anemia due to antineoplastic chemotherapy; M54.41 Lumbago with sciatica, right side; K21.9 Gastro-esophageal reflux disease without esophagitis; E11.65 Type 2 diabetes mellitus with hyperglycemia; T45.1X5A Adverse effect of antineoplastic and immunosuppressive drugs, initial encounter; G47.33 Obstructive sleep apnea (adult) (pediatric); Z99.89 Dependence on other enabling machines and devices; Z79.899 Other long term (current) drug therapy; Z79.890 Hormone replacement therapy; Z79.84 Long term (current) use of oral hypoglycemic drugs; Z88.1 Allergy status to other antibiotic agents; Z91.041 Radiographic dye allergy status; Z88.8 Allergy status to other drugs, medicaments and biological substances; Z91.048 Other nonmedicinal substance allergy status; Z87.442 Personal history of urinary calculi; Z90.49 Acquired absence of other specified parts of digestive tract; Z90.710 Acquired absence of both cervix and uterus; Z80.3 Family history of malignant neoplasm of breast; Z80.0 Family history of malignant neoplasm of digestive organs; Z80.8 Family history of malignant neoplasm of other organs or systems; R63.4 Abnormal weight loss; R63.0 Anorexia
CPT/HCPCS: 96376 ×3; 96361 ×3; 96375 ×2; 96374; 99284; 36415; 88305; 80053 ×4; 80048; 82728; 82150; 83540; 83550; 82009; 83615; 83690; 84550; 85025 ×5; 81003; 71045; 71260; 74177; 43239; G0378 ×4; J2270 ×3; J1200; J2930; J2405 ×3; J2001; J2704; C9113; Q9967

== ENCOUNTER → 2018-05-23 | Outpatient (CLI) | payer MEDICARE, OTHER ==
--- NOTE | 2018-05-23 13:43 | XR ---
EXAMINATION TYPE: XR chest 2V DATE OF EXAM: 05/23/2018 COMPARISON: 05/18/2018 HISTORY: 67 year-old female shortness of breath, C83.33, C83.39, D80.1, I50.9 TECHNIQUE: AP and lateral views FINDINGS: Right anterior chest wall injection port with catheter tip at the upper to mid SVC. Heart is upper li mits of normal in size. Mild diffuse interstitial prominence. Continued small bilateral pleural effus ions with adjacent bibasilar opacity. Suspect a calcified granuloma in the left midlung. Overall find ings are relatively stable. IMPRESSION: Borderline heart size, mild interstitial changes, and continued small pleural effusions with adjacent atelectasis and/or consolidation. Correlate for possible mild CHF as an etiology.
== END ==
LOC: RADXRMAIN 13:00
PROVIDERS: ATTEND Internal Medicine Hematology & Oncology
DX: J90 Pleural effusion, not elsewhere classified (principal); J98.11 Atelectasis; I50.9 Heart failure, unspecified; C83.39 Diffuse large B-cell lymphoma, extranodal and solid organ sites; C83.33 Diffuse large B-cell lymphoma, intra-abdominal lymph nodes; D80.1 Nonfamilial hypogammaglobulinemia
CPT/HCPCS: 71046

== ENCOUNTER 2018-06-04 16:06 | Inpatient (IN) | payer MEDICARE, OTHER ==
[2018-06-04] MEDS ORDERED: SODIUM CHLORIDE 0.9% 1,000 ML IV ONE (17:50)
--- NOTE | 2018-06-04 17:57 | ED ---
Fever HPI - General Chief Complaint: Fever Stated Complaint: fever/dehydration Time Seen by Provider: 06/04/18 17:29 Source: patient Mode of arrival: ambulatory Limitations: no limitations - History of Present Illness Initial Comments: 67-year-old female presenting today for chief complaint of fever, pallor. Patient is recently diagnosed one year prior with non-Hodgkin's lymphoma. Patient has port in place. Patient has been on chemotherapy with last dose 13 weeks prior administered by Dr. Gracia. For the past week patient has had a low- grade fever at night as well as night sweats. Patient has a home care nurse who states throughout the day patient has had low-grade temperature as well as slight cough. Earlier patient was complaining of some shortness of breath. Patient denies any current source of breath states it was temporary and subside. Patient denies chest pain or hemoptysis. Patient states at times both her legs swell. Patient states she did outpatient labs last week with a white count of 20.4. When home care nurse left patient's home today she recommended presentation to the emergency department she states she possibly heard crackles on lung exam concerning for pneumonia, she also stated patient appeared dehydrated. Patient states she had one episode of emesis today denies hematemesis. Patient denies abdominal pain diarrhea. She states last week she had a transfusion including one unit of blood for anemia. Remaining review of systems negative, patient denies any recent chest pain, back pain, abdominal pain, nausea, numbness or tingling, dysuria or hematuria, constipation or diarrhea, headaches or visual changes, or any other complaints. Last BM this morning normal, denies melena or hematochezia. - Related Data Home Medications Medication Instructions Recorded Confirmed Furosemide 20 mg PO DAILY 09/19/13 06/04/18 Gabapentin 100 mg PO QAM 09/19/13 06/04/18 Gabapentin [Neurontin] 200 mg PO HS 12/05/14 06/04/18 Levothyroxine Sodium [Synthroid] 125 mcg PO [id number] 12/05/14 06/04/18 Multivitamins, Thera [Multivitamin 1 tab PO DAILY 05/24/17 06/04/18 (formulary)] Atorvastatin Calcium [Lipitor] 40 mg PO HS 06/12/17 06/04/18 Citalopram Hydrobromide [CeleXA] 20 mg PO HS 10/22/17 06/04/18 Cetirizine HCl 10 mg PO HS 03/30/18 06/04/18 Pantoprazole [Protonix] 40 mg PO DAILY 03/30/18 06/04/18 Potassium Chloride ER [K-Dur 10] 10 meq PO BID 03/30/18 06/04/18 HYDROcodone/APAP 7.5-325MG [Porcupine 1 tab PO Q6HR PRN 05/14/18 06/04/18 7.5-325] Ondansetron [Zofran] 4 mg PO Q6H PRN 05/23/18 06/04/18 ALPRAZolam [Xanax] 0.33 mg PO DAILY PRN 06/04/18 06/04/18 Previous Rx's Medication Instructions Recorded metFORMIN HCL 1,000 mg PO BID #0 12/08/17 Allergies Allergy/AdvReac Type Severity Reaction Status Date / Time haloperidol [From Haldol] Allergy Unknown Verified 06/04/18 18:46 haloperidol lactate Allergy Unknown Verified 06/04/18 18:46 [From Haldol] Iodinated Contrast- Oral and Allergy Rash/Hives Verified 06/04/18 18:46 IV Dye [Iodinated Contrast Media - IV Dye] ciprofloxacin [From Cipro] AdvReac Heartburn Verified 06/04/18 18:46 steri-strips AdvReac Severe sore Uncoded 05/23/18 10:57 Review of Systems ROS Statement: Those systems with pertinent positive or pertinent negative responses have been documented in the HPI. ROS Other: All systems not noted in ROS Statement are negative. Past Medical History Past Medical History: Cancer, Heart Failure, Diabetes Mellitus, Hyperlipidemia, Hypertension, Sleep Apnea/CPAP/BIPAP, Thyroid Disorder Additional Past Medical History / Comment(s): B-cell non-Hodgkin's lymphoma stage IV, diabetes mellitus,daughter stated pt had first chemo mon 11-20-17 hyp ertension, hyperlipidemia, obstructive sleep apnea, hypothyroidism post thyroidectomy, closed head injury in 1988, difficulty with mobility and ambulation the patient has been using a walker. has a history of kidney stones Last Myocardial Infarction Date:: 1988 History of Any Multi-Drug Resistant Organisms: None Reported Past Surgical History: Cholecystectomy, Hysterectomy, Tonsillectomy Additional Past Surgical History / Comment(s): Thyroidectomy, lymph node and liver biopsies. port a cath 11-06-17, right ureteroscopy with lithotripsy 12/2014 Past Anesthesia/Blood Transfusion Reactions: Postoperative Nausea & Vomiting (PONV) Past Psychological History: Anxiety Smoking Status: Never smoker Past Alcohol Use History: None Reported Past Drug Use History: Marijuana - Past Family History Mother Family Medical History: Cancer Additional Family Medical History / Comment(s): breast CA Father Family Medical History: Cancer Additional Family Medical History / Comment(s): colon CA Sister(s) Family Medical History: Cancer Additional Family Medical History / Comment(s): Skin cancer General Exam - General Exam Comments Initial Comments: General: The patient is awake and alert, in no distress, pallor Eye: +3 mm pupils are equal, round and reactive to light, extra-ocular movements are intact. No nystagmus. There is normal conjunctiva bilaterally. No signs of icterus. No photophobia Ears, nose, mouth and throat: There are moist mucous membranes and no oral lesions. Oropharynx was not erythematous there is no tonsillar enlargement exudates or lesions. Uvula midline. Tympanic membranes are not erythematous or is no effusions bulging or retraction. No tenderness to palpation of the mastoid. No anterior cervical lymphadenopathy. Rhinorrhea, clear and bilateral nares. No tripoding, no drooling. Neck: The neck is supple, there is no tenderness or JVD. No nuchal rigidity. Cardiovascular: There is a regular rate and rhythm. No murmur, rub or gallop is appreciated. Respiratory: Lungs are clear to auscultation, respirations are non-labored, breath sounds are equal. No wheezes, stridor, rales, or rhonchi. No retractions or abdominal breathing. Gastrointestinal: Soft, non-distended, non-tender abdomen without masses or organomegaly noted. There is no rebound or guarding present. Bowel sounds are unremarkable. Musculoskeletal: Normal ROM, no tenderness. Strength 5/5. Sensation intact. Radial pulses equal bilaterally 2+. Neurological: A&O x 3. CN II-XII intact, There are no obvious motor or sensory deficits. Coordination appears grossly intact. Speech appears normal, no muf fling. Skin: Skin is warm and dry and no rashes or lesions are noted. Mild b/l extremity edema Psychiatric: Cooperative Limitations: no limitations Course Vital Signs 04/10/1506/04/18 06/04/18 17:14 17:26 17:30 Temperature 99.2 F Pulse Rate 95 95 Respiratory 16 Rate Blood Pressure 118/73 121/76 O2 Sat by Pulse 96 95 94 L Oximetry 06/04/18 06/04/18 06/04/18 17:40 17:50 18:00 Temperature Pulse Rate 99 Respiratory Rate Blood Pressure 123/73 118/81 118/81 O2 Sat by Pulse 95 94 L 94 L Oximetry 06/04/18 06/04/18 06/04/18 18:10 18:20 18:30 Temperature Pulse Rate 94 Respiratory Rate Blood Pressure 118/70 120/71 120/71 O2 Sat by Pulse 94 L 94 L 92 L Oximetry 06/04/18 06/04/18 06/04/18 18:40 18:50 19:00 Temperature Pulse Rate 98 Respiratory Rate Blood Pressure 120/57 123/74 123/74 O2 Sat by Pulse 93 L 93 L Oximetry 06/04/18 06/04/18 06/04/18 19:10 19:20 19:30 Temperature Pulse Rate Respiratory Rate Blood Pressure 123/74 127/76 127/76 O2 Sat by Pulse 97 98 98 Oximetry 06/04/18 06/04/18 06/04/18 19:40 19:50 20:00 Temperature Pulse Rate 99 Respiratory Rate Blood Pressure 131/104 121/72 121/72 O2 Sat by Pulse 97 95 95 Oximetry 06/04/18 06/04/18 06/04/18 20:10 20:20 20:30 Temperature Pulse Rate 99 Respiratory Rate Blood Pressure 115/70 115/70 115/70 O2 Sat by Pulse 95 95 94 L Oximetry 06/04/18 06/04/18 06/04/18 20:40 20:50 21:00 Temperature Pulse Rate Respiratory Rate Blood Pressure 116/76 180/141 180/141 O2 Sat by Pulse 96 Oximetry 06/04/18 06/04/18 06/04/18 21:09 21:10 21:20 Temperature 102.3 F H Pulse Rate 108 H 108 H Respiratory 16 Rate Blood Pressure 124/90 124/90 122/80 O2 Sat by Pulse 93 L 93 L 94 L Oximetry 06/04/18 06/04/18 06/04/18 21:30 21:40 22:58 Temperature 99.2 F Pulse Rate 95 Respiratory 16 Rate Blood Pressure 122/80 120/79 107/61 O2 Sat by Pulse 94 L 95 99 Oximetry Medical Decision Making - Medical Decision Making 67-year-old feel presented for generalized weakness, fever at home cough. Lungs clear to auscultation. Chest x-ray revealed pleural effusions unchanged from previous x-ray. EKG revealed sinus rhythm with frequent PVCs, left axis deviation. No ST elevation or depression. Nonspecific T-wave. Lactic acid within normal limits. Elevated white blood cell count. At this time is unclear the etiology of fever at home. Pt afebrile in the emergency department. Urinalysis is pending straight catheterization. At this time I'll sign out patient to attending provider Dr. Verde to my current recommendations and disposition is admission, for IV fluids. Family would prefer and agreeable with admission. Patient is given IV fluids in the emergency department. - Lab Data Result diagrams: 06/04/18 18:00 06/04/18 18:00 Lab Results 06/04/18 06/04/18 06/04/18 Range/Units 18:00 18:00 18:00 WBC 21.3 H (3.8-10.6) k/uL RBC 5.14 (3.80-5.40) m/uL Hgb 12.2 D (11.4-16.0) gm/dL Hct 40.6 (34.0-46.0) % MCV 79.0 L (80.0-100.0) fL MCH 23.8 L (25.0-35.0) pg MCHC 30.1 L (31.0-37.0) g/dL RDW 16.9 H (11.5-15.5) % Plt Count 450 (150-450) k/uL Neutrophils % 93 % Lymphocytes % 1 % Monocytes % 4 % Eosinophils % 1 % Basophils % 0 % Neutrophils # 19.8 H (1.3-7.7) k/uL Lymphocytes # 0.2 L (1.0-4.8) k/uL Monocytes # 0.9 (0-1.0) k/uL Eosinophils # 0.2 (0-0.7) k/uL Basophils # 0.0 (0-0.2) k/uL Hypochromasia Marked Poikilocytosis Slight Anisocytosis Slight Microcytosis Slight PT (9.0-12.0) sec INR (<1.2) APTT (22.0-30.0) sec Sodium 134 L (137-145) mmol/L Potassium 4.5 (3.5-5.1) mmol/L Chloride 97 L (98-107) mmol/L Carbon Dioxide 27 (22-30) mmol/L Anion Gap 10 mmol/L BUN 13 (7-17) mg/dL Creatinine 0.66 (0.52-1.04) mg/dL Est GFR (CKD-EPI)AfAm >90 (>60 ml/min/1.73 sqM) Est GFR (CKD-EPI)NonAf >90 (>60 ml/min/1.73 sqM) Glucose 366 H (74-99) mg/dL POC Glucose (mg/dL) (75-99) mg/dL POC Glu C[employer] Supervisor ID Plasma Lactic Acid Tim (0.7-2.0) mmol/L Calcium 10.3 H (8.4-10.2) mg/dL Total Bilirubin 0.7 (0.2-1.3) mg/dL AST 30 (14-36) U/L ALT 34 (9-52) U/L Alkaline Phosphatase 558 H (38-126) U/L NT-Pro-B Natriuret Pep pg/mL Total Protein 5.4 L (6.3-8.2) g/dL Albumin 2.7 L (3.5-5.0) g/dL Urine Color Urine Appearance (Clear) Urine pH (5.0-8.0) Ur Specific [place] (1.001-1.035) Urine Protein (Negative) Urine Glucose (UA) (Negative) Urine Ketones (Negative) Urine Blood (Negative) Urine Nitrite (Negative) Urine Bilirubin (Negative) Urine Urobilinogen (<2.0) mg/dL Ur Leukocyte Esterase (Negative) Urine RBC (0-5) /hpf Urine WBC (0-5) /hpf Ur Squamous Epith Cells (0-4) /hpf Amorphous Sediment (None) /hpf Urine Mucus (None) /hpf Influenza Type A RNA (Not Detectd) Influenza Type B (PCR) (Not Detectd) Blood Type O Positive Blood Type Recheck No Antibody Screen NEGATIVE Spec Expiration Date 06/07/2018 - 2300 04/08/19 04/08/19 04/08/19 Range/Units 18:00 18:00 18:00 WBC (3.8-10.6) k/uL RBC (3.80-5.40) m/uL Hgb (11.4-16.0) gm/dL Hct (34.0-46.0) % MCV (80.0-100.0) fL MCH (25.0-35.0) pg MCHC (31.0-37.0) g/dL RDW (11.5-15.5) % Plt Count (150-450) k/uL Neutrophils % % Lymphocytes % % Monocytes % % Eosinophils % % Basophils % % Neutrophils # (1.3-7.7) k/uL Lymphocytes # (1.0-4.8) k/uL Monocytes # (0-1.0) k/uL Eosinophils # (0-0.7) k/uL Basophils # (0-0.2) k/uL Hypochromasia Poikilocytosis Anisocytosis Microcytosis PT 10.9 (9.0-12.0) sec INR 1.0 (<1.2) APTT 26.6 (22.0-30.0) sec Sodium (137-145) mmol/L Potassium (3.5-5.1) mmol/L Chloride (98-107) mmol/L Carbon Dioxide (22-30) mmol/L Anion Gap mmol/L BUN (7-17) mg/dL Creatinine (0.52-1.04) mg/dL Est GFR (CKD-EPI)AfAm (>60 ml/min/1.73 sqM) Est GFR (CKD-EPI)NonAf (>60 ml/min/1.73 sqM) Glucose (74-99) mg/dL POC Glucose (mg/dL) (75-99) mg/dL POC Glu C[employer] Supervisor ID Plasma Lactic Acid Tim 1.8 (0.7-2.0) mmol/L Calcium (8.4-10.2) mg/dL Total Bilirubin (0.2-1.3) mg/dL AST (14-36) U/L ALT (9-52) U/L Alkaline Phosphatase (38-126) U/L NT-Pro-B Natriuret Pep pg/mL Total Protein (6.3-8.2) g/dL Albumin (3.5-5.0) g/dL Urine Color Urine Appearance (Clear) Urine pH (5.0-8.0) Ur Specific [place] (1.001-1.035) Urine Protein (Negative) Urine Glucose (UA) (Negative) Urine Ketones (Negative) Urine Blood (Negative) Urine Nitrite (Negative) Urine Bilirubin (Negative) Urine Urobilinogen (<2.0) mg/dL Ur Leukocyte Esterase (Negative) Urine RBC (0-5) /hpf Urine WBC (0-5) /hpf Ur Squamous Epith Cells (0-4) /hpf Amorphous Sediment (None) /hpf Urine Mucus (None) /hpf Influenza Type A RNA Not Detected (Not Detectd) Influenza Type B (PCR) Not Detected (Not Detectd) Blood Type Blood Type Recheck Antibody Screen Spec Expiration Date 06/04/18 06/04/18 06/04/18 Range/Units 18:00 19:29 21:08 WBC (3.8-10.6) k/uL RBC (3.80-5.40) m/uL Hgb (11.4-16.0) gm/dL Hct (34.0-46.0) % MCV (80.0-100.0) fL MCH (25.0-35.0) pg MCHC (31.0-37.0) g/dL RDW (11.5-15.5) % Plt Count (150-450) k/uL Neutrophils % % Lymphocytes % % Monocytes % % Eosinophils % % Basophils % % Neutrophils # (1.3-7.7) k/uL Lymphocytes # (1.0-4.8) k/uL Monocytes # (0-1.0) k/uL Eosinophils # (0-0.7) k/uL Basophils # (0-0.2) k/uL Hypochromasia Poikilocytosis Anisocytosis Microcytosis PT (9.0-12.0) sec INR (<1.2) APTT (22.0-30.0) sec Sodium (137-145) mmol/L Potassium (3.5-5.1) mmol/L Chloride (98-107) mmol/L Carbon Dioxide (22-30) mmol/L Anion Gap mmol/L BUN (7-17) mg/dL Creatinine (0.52-1.04) mg/dL Est GFR (CKD-EPI)AfAm (>60 ml/min/1.73 sqM) Est GFR (CKD-EPI)NonAf (>60 ml/min/1.73 sqM) Glucose (74-99) mg/dL POC Glucose (mg/dL) 367 H (75-99) mg/dL POC Glu C[employer] Supervisor ID Rhina Swan A Plasma Lactic Acid Tim (0.7-2.0) mmol/L Calcium (8.4-10.2) mg/dL Total Bilirubin (0.2-1.3) mg/dL AST (14-36) U/L ALT (9-52) U/L Alkaline Phosphatase (38-126) U/L NT-Pro-B Natriuret Pep 4720 pg/mL Total Protein (6.3-8.2) g/dL Albumin (3.5-5.0) g/dL Urine Color Yellow Urine Appearance Cloudy H (Clear) Urine pH 6.0 (5.0-8.0) Ur Specific [place] 1.030 (1.001-1.035) Urine Protein 1+ H (Negative) Urine Glucose (UA) 3+ H (Negative) Urine Ketones Negative (Negative) Urine Blood Negative (Negative) Urine Nitrite Negative (Negative) Urine Bilirubin Negative (Negative) Urine Urobilinogen 4.0 (<2.0) mg/dL Ur Leukocyte Esterase Negative (Negative) Urine RBC <1 (0-5) /hpf Urine WBC 7 H (0-5) /hpf Ur Squamous Epith Cells 1 (0-4) /hpf Amorphous Sediment Occasional H (None) /hpf Urine Mucus Occasional H (None) /hpf Influenza Type A RNA (Not Detectd) Influenza Type B (PCR) (Not Detectd) Blood Type Blood Type Recheck Antibody Screen Spec Expiration Date - EKG Data EKG Comments: Ventricular rate 92 bpm, AK interval 166 ms, to yazidism 88 ms, QT/QTC 374/462 most seconds. Sinus rhythm with frequent PVCs. Left axis deviation. Low voltage QRS. Nonspecific T-wave. No ST elevation or depression. EKG was reviewed by myself. EKG was reviewed by attending provider Dr. Verde. Disposition Clinical Impression: Dehydration, Generalized weakness, Cough Disposition: ADMITTED IP TO THIS HOSP Condition: Stable Time of Disposition: 10:44 Decision to Admit Reason: Admit from EC Decision Date: 06/04/18 Decision Time: 20:30
[2018-06-04 18:11] LABS: Anisocytosis Slight; Basophils % (A) 0 %; Eosinophils # (A) 0.2 k/uL (0-0.7); Eosinophils % (A) 1 %; HCT 40.6 % (34.0-46.0); Hypochromasia Marked; Lymphocytes # (A) 0.2 k/uL (1.0-4.8); Lymphocytes % (A) 1 %; MCH 23.8 pg (25.0-35.0); MCHC 30.1 g/dL (31.0-37.0); Mean Platelet Volume 7.3; Microcytosis Slight; Monocytes # (A) 0.9 k/uL (0-1.0); Monocytes % (A) 4 %; Neutrophils # (A) 19.8 k/uL (1.3-7.7); Neutrophils % (A) 93 %; Platelet Count 450 k/uL (150-450); Poikilocytosis Slight; RBC 5.14 m/uL (3.80-5.40); RDW 16.9 % (11.5-15.5); WBC 21.3 k/uL (3.8-10.6)
[2018-06-04 18:12] LABS: HGB 12.2 gm/dL (11.4-16.0)
[2018-06-04 18:17] LABS: ALT 34 U/L (9-52); AST 30 U/L (14-36); Albumin 2.7 g/dL (3.5-5.0); Alkaline Phosphatase 558 U/L (38-126); Anion Gap 10 mmol/L; Blood Urea Nitrogen 13 mg/dL (7-17); Calcium 10.3 mg/dL (8.4-10.2); Carbon Dioxide 27 mmol/L (22-30); Chloride 97 mmol/L (98-107); Glucose 366 mg/dL (74-99); Potassium 4.5 mmol/L (3.5-5.1); Sodium 134 mmol/L (137-145); Total Bilirubin 0.7 mg/dL (0.2-1.3); Total Protein 5.4 g/dL (6.3-8.2)
[2018-06-04] MEDS ORDERED: PIPERACILLIN-TAZOBACTAM 3.375 GM in SODIUM CHLORIDE 0.9% 100 ML IVPB STA (18:28)
[2018-06-04 18:30] LABS: Partial Thromboplastin Time 26.6 sec (22.0-30.0); Prothrombin Time 10.9 sec (9.0-12.0)
[2018-06-04] MEDS ORDERED: INSULIN REGULAR 100 UNIT/ML VIAL SQ ONE (19:13)
[2018-06-04 19:31] LABS: Glucose,Whole Blood 367 mg/dL (75-99)
--- NOTE | 2018-06-04 19:42 | XR ---
EXAMINATION TYPE: XR chest 2V DATE OF EXAM: 06/04/2018 COMPARISON: 05/23/2018 HISTORY: Fever TECHNIQUE: Frontal and lateral views of the chest are obtained. FINDINGS: Heart is enlarged. There is mild pulmonary vascular congestion. There is blunting of costo phrenic angles. There is right central venous catheter with the tip in the superior vena cava. There is no pneumothorax. Bony thorax is intact. IMPRESSION: Congestive heart failure with pleural effusions. No significant change compared to last exam.
[2018-06-04] MEDS ORDERED: MORPHINE SULFATE 4 MG/ML SYRINGE IVP STA (20:51)
[2018-06-04] MEDS ORDERED: VANCOMYCIN 1,250 MG in SODIUM CHLORIDE 0.9% 250 ML IVPB STA (21:09)
[2018-06-04] MEDS ORDERED: ACETAMINOPHEN TAB 500 MG TAB PO STA (21:12)
[2018-06-04] MEDS ORDERED: ONDANSETRON 4 MG/2 ML VIAL IVP STA (21:12)
[2018-06-04] MEDS ORDERED: NALOXONE 0.4 MG/ML 1 ML VIAL IV PRN (21:13)
[2018-06-04 22:03] LABS: Amorphous Sediment,Urine Occasional /hpf; Appearance,Urine Cloudy (Clear); Bilirubin,Urine Negative (Negative); Blood,Urine Negative (Negative); Color,Urine Yellow; Glucose,Urine (UA) 3+ (Negative); Ketones,Urine Negative (Negative); Leukocyte Esterase,Urine Negative (Negative); Mucus,Urine Occasional /hpf; Nitrite,Urine Negative (Negative); Protein,Urine 1+ (Negative); RBC,Urine <1 /hpf (0-5); Squamous Epithelial Cell,Urine 1 /hpf (0-4); WBC,Urine 7 /hpf (0-5)
[2018-06-05] MEDS ORDERED: VANCOMYCIN IV PER PHARMACY 1 EACH MISC MISCELLANE PRN (00:42)
[2018-06-05] MEDS ORDERED: IBUPROFEN 600 MG TAB PO PRN (00:50)
[2018-06-05] MEDS ORDERED: ACETAMINOPHEN TAB 325 MG TAB PO PRN (00:50)
[2018-06-05] MEDS: PIPERACILLIN-TAZOBACTAM 3.375 GM in SODIUM CHLORIDE 0.9% 100 ML IVPB SCH ×3 (03:35→21:12)
[2018-06-05] MEDS: SODIUM CHLORIDE 0.9% 1,000 ML IV SCH ×2 (03:45→21:13)
[2018-06-05 07:31] LABS: Glucose,Whole Blood 341 mg/dL (75-99)
[2018-06-05] MEDS: VANCOMYCIN 1,000 MG in SODIUM CHLORIDE 0.9% 250 ML IVPB SCH ×2 (08:08→22:22)
[2018-06-05] MEDS: INSULIN ASPART (NovoLOG) 100 UNIT/ML VIAL SQ SCH ×4 (08:13→22:21)
[2018-06-05] MEDS ORDERED: HYDROcodone/APAP 7.5-325MG 1 EACH TAB PO PRN (09:35)
[2018-06-05] MEDS ORDERED: ONDANSETRON 4 MG TAB PO PRN (09:35)
[2018-06-05 11:05] LABS: Glucose,Whole Blood 303 mg/dL (75-99)
[2018-06-05] MEDS: LEVOTHYROXINE 125 MCG TAB PO SCH (11:06)
[2018-06-05] MEDS: HYDROcodone/APAP 7.5-325MG 1 EACH TAB PO PRN ×2 (11:35→19:44)
[2018-06-05 11:41] LABS: Anisocytosis Slight; Basophils % (A) 0 %; Eosinophils # (A) 0.1 k/uL (0-0.7); Eosinophils % (A) 0 %; Hypochromasia Marked; Lymphocytes # (A) 0.4 k/uL (1.0-4.8); Lymphocytes % (A) 1 %; MCHC 28.4 g/dL (31.0-37.0); MCV 81.1 fL (80.0-100.0); Mean Platelet Volume 7.4; Monocytes # (A) 1.3 k/uL (0-1.0); Monocytes % (A) 3 %; Neutrophils # (A) 35.5 k/uL (1.3-7.7); Neutrophils % (A) 94 %; Platelet Count 541 k/uL (150-450); Poikilocytosis Slight; RBC 3.82 m/uL (3.80-5.40); RDW 17.3 % (11.5-15.5); WBC 37.7 k/uL (3.8-10.6)
[2018-06-05] MEDS ORDERED: FUROSEMIDE 20 MG TAB PO STA (11:41)
[2018-06-05 11:42] LABS: HGB 8.8 gm/dL (11.4-16.0)
[2018-06-05] MEDS ORDERED: metFORMIN 500 MG TAB PO STA (11:42)
--- NOTE | 2018-06-05 11:49 | P.CONS ---
History of Present Illness - Reason for Consult Consult date: 06/05/18 Hx: NHL - High Suspicion for recurrence Requesting physician: Isaias Verde - Chief Complaint Fever - History of Present Illness Ms Ledezma is a 67 yr old white female, initially seen in consult at [facility] on 05/25/17. She had been admitted with lower chest/upper abdominal pain. She was evaluated by internal medicine and cardiology with symptoms resolving spontaneously. She had a CT to evaluate in the outer to rule out aortic aneurysm. This incidentally noted retroperitoneal adenopathy, left greater than right, largest about 4 cm in size. The patient had no obvious symptoms other than mid back pain for the prior 6-8 weeks. However this was not constant. She had a CT of the chest abdomen and pelvis which showed retroperi toneal adenopathy measuring 4.8 x 2.9 cm with some additional upper abdominal adenopathy measuring up to 1.9 cm. No other adenopathy was seen in the thorax or pelvis. CBC was normal other than mild WBC elevation, mostly due to neutropenia. Chem panel was also negative other than creatinine of 1.2. The patient had a retroperitoneal core biopsy on 06/19/17. The biopsy was positive for B-cell non-Hodgkin's lymphoma, CD5 negative. The main differentials included follicular, splenic marginal zone, or LPL. A specimen was sent to [facility] with final diagnosis pending post consultation. the patient was then referred here and seen for her first office visit on 06/27/17. the patient had labs and PET scan ordered. 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 PET scan showed activity in the area of of abdominal adenopathy. No other areas of suspicious activity are noted, except for scattered areas in the liver which could not be well defined. Labs were negative other than elevated Light chain at 10 3 mg/L, versus lambda of 44.7 mg/L, with mild elevation of ratio at 2.35. The patient had an MRI of the liver ordered, which showed multiple suspicious lesions, at least 8 in number. She therefore underwent an ultrasound-guided liver biopsy in early 08/14. This showed a dense lymphocytic infiltrative pattern. However interestingly the majority of the liver cells appear to be reactive T lymphocytes with only a small number of B lymphocytes noted. The pathologic findings are felt to raise the possibility of an inflammatory disorder such as primary biliary cirrhosis. The specimen was been sent to the [facility] for additional consultation, which reported no evidence of malignancy. She had a bone marrow in 09/13 , revealing involvement, and thus stage 4 disease. She was thus placed on observation . She was admitted with severe fatigue and weakness to [facility] in late 10/14. CT scans showed progression in the lymph nodes and liver. She had a liver biopsy on 10/24/17, showing presence of a large and small cell lymphoma population. Double/triple hit testing was negative. she was started on R-CEOP (Adriamycin not use due to diminished ejection fraction) on 11/20/17. She is status post 1 cycle. She was seen in the office on 11/30/17. She denies any fever/chills. she had marked agitation with steroids, which improved with Xanax. She had markedly decreased appetite and progressive weakness. she has been very lethargic, and requiring assistance with even minimal activities. She has been nauseous persis tently, with intermittent vomiting. Over the last 1-2 days, she has been having diarrhea with lower abdominal cramping and pain. according to the family, she has been intermittently confused, especially at night. This had improved after stopping the steroids but seemed to have become somewhat more prominent over the last 1-2 days. her blood pressure was quite low in the office, with systolic in the 70 range. She was therefore sent in to the emergency room. The case was discussed in detail with the ER physician. The patient was noted to have tachycardia as well as low blood pressure, that did not respond well to fluids. WBC was 1.6. She was therefore admitted to the ICU, and consult placed for further evaluation and recommendations. CT of the abdomen and pelvis revealed evidence of enteritis, and possibly left hydronephrosis due to renal calculus She completed treatment withCOEP with neulasta. In December 2017 she was admitted with increased weakness, fatigue, confusion, recurrent falls, and elevated blood glucose levels. Her regimen of chemo includes 5 days of high dose steroids, prednisone, which accounts for her elevated glucose levels. She is feeling a little better today she stated. She is still a poor historian and no family at bedside as she originally stated she was short of breath when she came in but then told me she think she was admitted for a fall or high glucose. She has always seemed to be poor historian at baseline, and her daughter who is also her caregiver is usually with her, although not during todays assessment. CTA chest failed to show any evidence of acute etiology or pulmonary embolism. Ms. Ledezma recently admitted after presenting to [facility] with complaints of increased pain and overall feeling worse over the past weeks. She was seen in office on May 09 and at that time was undergoing treatment for assumed infection UTI, although UA negative unknown if truly infectious. Dr. Gracia recommended patient undergo GI work-up with upper and lower endoscopy as he was concerned for potential bowel wall involvement of lymphoma, at that time she was agreeable but has not followed up with the recommendation. She was referred to Dr. Fadi SNYDER as well at that time regarding potential UA versus colinization. 06/05/18: Patient presents now to Emergency with complaints of fevers. The past week patient has had a low-grade fever at night as well as worsening baseline night sweats and chills. Patient has a home care nurse who expressed concern through EMR for low-grade temperature (100-101) as well as persistent non-prod uctive cough. She admits to intermittent shortness of breath, worse with exertion. Intermittent Bilateral Lower Extremity Edema, Decreased appetite, increased fatigue, and just feels worse each day. Denies chest pain, hemoptysis signs of bleeding, rash. both her legs swell. WBC is increased, baseline 11-15, primarily neutrophils. 06/04/18 21.3, awaiting todays labs. She has been afebrile since beginning antibiotics. She states she has no urinary frequency or hesitency or dysuria and BM this am without diarrhea or constipation. Review of Systems A 14 point review of systems assessed and completed and all negative except HPI Past Medical History Past Medical History: Cancer, Heart Failure, Diabetes Mellitus, Hyperlipidemia, Hypertension, Sleep Apnea/CPAP/BIPAP, Thyroid Disorder Additional Past Medical History / Comment(s): B-cell non-Hodgkin's lymphoma stage IV, diabetes mellitus,daughter stated pt had first chemo mon11-20-17 hypertension, hyperlipidemia, obstructive sleep apnea, hypothyroidism post thyroidectomy, closed head injury in 1988, difficulty with mobility and ambulation the patient has been using a walker. has a history of kidney stones Last Myocardial Infarction Date:: 1988 History of Any Multi-Drug Resistant Organisms: None Reported Past Surgical History: Cholecystectomy, Hysterectomy, Tonsillectomy Additional Past Surgical History / Comment(s): Thyroidectomy, lymph node and liver biopsies. port a cath 11-06-17, right ureteroscopy with lithotripsy 12/2014 Past Anesthesia/Blood Transfusion Reactions: Postoperative Nausea & Vomiting (PONV) Past Psychological History: Anxiety Smoking Status: Never smoker Past Alcohol Use History: None Reported Past Drug Use History: Marijuana - Past Family History Mother Family Medical History: Cancer Additional Family Medical History / Comment(s): breast CA Father Family Medical History: Cancer Additional Family Medical History / Comment(s): colon CA Sister(s) Family Medical History: Cancer Additional Family Medical History / Comment(s): Skin cancer Medications and Allergies Home Medications Medication Instructions Recorded Confirmed Type Furosemide 20 mg PO DAILY 09/19/13 06/04/18 History Gabapentin 100 mg PO QAM 09/19/13 06/04/18 History Gabapentin [Neurontin] 200 mg PO HS 12/05/14 06/04/18 History Levothyroxine Sodium [Synthroid] 125 mcg PO MOTUWETHFRSA 12/05/14 06/04/18 History Multivitamins, Thera [Multivitamin 1 tab PO DAILY 05/24/17 06/04/18 History (formulary)] Atorvastatin Calcium [Lipitor] 40 mg PO HS 06/12/17 06/04/18 History Citalopram Hydrobromide [CeleXA] 20 mg PO HS 10/22/17 06/04/18 History metFORMIN HCL 1,000 mg PO BID #0 12/08/17 06/04/18 Rx Cetirizine HCl 10 mg PO HS 03/30/18 06/04/18 History Pantoprazole [Protonix] 40 mg PO DAILY 03/30/18 06/04/18 History Potassium Chloride ER [K-Dur 10] 10 meq PO BID 03/30/18 06/04/18 History HYDROcodone/APAP 7.5-325MG [[place] 1 tab PO Q6HR PRN 05/14/18 06/04/18 History 7.5-325] Ondansetron [Zofran] 4 mg PO Q6H PRN 05/23/18 06/04/18 History ALPRAZolam [Xanax] 0.33 mg PO DAILY PRN 06/04/18 06/04/18 History Allergies Allergy/AdvReac Type Severity Reaction Status Date / Time haloperidol [From Haldol] Allergy Unknown Verified 06/04/18 18:46 haloperidol lactate Allergy Unknown Verified 06/04/18 18:46 [From Haldol] Iodinated Contrast- Oral and Allergy Rash/Hives Verified 06/04/18 18:46 IV Dye [Iodinated Contrast Media - IV Dye] ciprofloxacin [From Cipro] AdvReac Heartburn Verified 06/04/18 18:46 steri-strips AdvReac Severe sore Uncoded 05/23/18 10:57 Physical Exam Vitals: Vital Signs Temp Pulse Pulse Resp BP BP Pulse Ox 06/05/18 09:13 97 06/05/18 05:36 97.3 F L 63 16 96/59 99 06/05/18 00:00 16 06/04/18 23:41 100.0 F H 86 16 101/61 96 06/04/18 22:58 99.2 F 95 16 107/61 99 06/04/18 21:40 120/79 95 06/04/18 21:30 122/80 94 L 06/04/18 21:20 122/80 94 L 06/04/18 21:10 108 H 124/90 93 L 06/04/18 21:09 102.3 F H 108 H 16 124/90 93 L 06/04/18 21:00 180/141 06/04/18 20:50 180/141 06/04/18 20:40 116/76 96 06/04/18 20:30 115/70 94 L 06/04/18 20:20 115/70 95 06/04/18 20:10 99 115/70 95 06/04/18 20:00 121/72 95 06/04/18 19:50 99 121/72 95 06/04/18 19:40 131/104 97 06/04/18 19:30 127/76 98 06/04/18 19:20 127/76 98 06/04/18 19:10 123/74 97 06/04/18 19:00 123/74 06/04/18 18:50 123/74 93 L 06/04/18 18:40 98 120/57 93 L 06/04/18 18:30 120/71 92 L 06/04/18 18:20 120/71 94 L 06/04/18 18:10 94 118/70 94 L 06/04/18 18:00 99 118/81 94 L 06/04/18 17:50 118/81 94 L 06/04/18 17:40 123/73 95 06/04/18 17:30 95 121/76 94 L 06/04/18 17:26 95 06/04/18 17:14 99.2 F 95 16 118/73 96 Intake and Output 06/04/18 06/05/18 06/05/18 22:59 06:59 14:59 Intake Total 1250 650 Output Total 100 Balance 1150 650 Intake: Amount of Fluid Infused ( 1250 ml) Intake, IV Titration 650 Amount Piperacillin-Tazobactam 3 100 .375 gm In Sodium Chloride 0.9% 100 ml @ 25 mls/hr IVPB Q8H YVETTE Rx#: [id number] Sodium Chloride 0.9% 1, 300 000 ml @ 50 mls/hr IV . Q20H YVETTE Rx#:[id number] Vancomycin 1,250 mg In 250 Sodium Chloride 0.9% 250 ml @ 125 mls/hr IVPB ONCE STA Rx#:[id number] Output: Urine 100 Uretheral (Sinclair) 100 Other: Voiding Method Incontinent Incontinent Weight 58.967 kg 58 kg Gen: Alert and Oriented, NAD Head: NC, NT Neck: Supple Mouth: Dry no lesions Lungs: Diminished bibasilar, no increased effort noted Heart RRR, S1 Abdomen S/ND/NT Ext: BLE 1+ Edema Neuro: No sensory or motor Deficits. Results CBC & Chem 7: 06/05/18 10:45 06/05/18 10:45 Labs: Abnormal Lab Results - Last 24 Hours (Table) 06/04/18 06/04/18 06/04/18 Range/Units 18:00 18:00 19:29 WBC 21.3 H (3.8-10.6) k/uL MCV 79.0 L (80.0-100.0) fL MCH 23.8 L (25.0-35.0) pg MCHC 30.1 L (31.0-37.0) g/dL RDW 16.9 H (11.5-15.5) % Neutrophils # 19.8 H (1.3-7.7) k/uL Lymphocytes # 0.2 L (1.0-4.8) k/uL Sodium 134 L (137-145) mmol/L Chloride 97 L (98-107) mmol/L Glucose 366 H (74-99) mg/dL POC Glucose (mg/dL) 367 H (75-99) mg/dL Calcium 10.3 H (8.4-10.2) mg/dL Alkaline Phosphatase 558 H (38-126) U/L Total Protein 5.4 L (6.3-8.2) g/dL Albumin 2.7 L (3.5-5.0) g/dL Urine Appearance (Clear) Urine Protein (Negative) Urine Glucose (UA) (Negative) Urine WBC (0-5) /hpf Amorphous Sediment (None) /hpf Urine Mucus (None) /hpf 06/04/18 06/05/18 06/05/18 Range/Units 21:08 07:29 11:04 WBC (3.8-10.6) k/uL MCV (80.0-100.0) fL MCH (25.0-35.0) pg MCHC (31.0-37.0) g/dL RDW (11.5-15.5) % Neutrophils # (1.3-7.7) k/uL Lymphocytes # (1.0-4.8) k/uL Sodium (137-145) mmol/L Chloride (98-107) mmol/L Glucose (74-99) mg/dL POC Glucose (mg/dL) 341 H 303 H (75-99) mg/dL Calcium (8.4-10.2) mg/dL Alkaline Phosphatase (38-126) U/L Total Protein (6.3-8.2) g/dL Albumin (3.5-5.0) g/dL Urine Appearance Cloudy H (Clear) Urine Protein 1+ H (Negative) Urine Glucose (UA) 3+ H (Negative) Urine WBC 7 H (0-5) /hpf Amorphous Sediment Occasional H (None) /hpf Urine Mucus Occasional H (None) /hpf Microbiology - Last 24 Hours (Table) 06/04/18 21:08 Urine Culture - Preliminary Urine,Catheterized Chest x-ray: report reviewed CT scan - abdomen: report reviewed CT scan - chest: report reviewed CT scan - pelvis: report reviewed Assessment and Plan Plan: Fevers: - Unknown Etiology, potential tumor fever although T-max in 24 hours 102.5 - Thornton cultures ordered - Chest Xray Negative - Zosyn Ordered Leukocytosis: Likely reactive - Work-up for infectious process with fever, could be related to malignancy - Baseline 11-15 - Primarily neutrophils NHL: - Most recently status post treatment with Hycela and bendamustine, status Post Cycle 2 03/06/18 - Prior to above status post treatment with R-Ceop - Highly suspicious for progrssion: CT C/A/P reviewed and discussed with patient, definite progression cannot be ruled out. - Status Post EGD for concern of penetrative lymphoma to Gastric/Esophageal wall - Path did not identify evidence of malignancy - Will attempt to obtain tissue biopsy from Retroperitoneal Mass via Interventional Radiology - LDH, Uric Acid Anorexia and weight loss: - Megace recently ordered Persisitent Nausea and Abdominal Pain: - GI Work-up and CT Scans Reviewed from previous admission Normocytic Anemia: Secondary to chemo and lymphoma - CBC and CMP in am Myopathy and Debility: - Rec PT/OT wwork with Patient Physcian Attest: I have completed the full history and physical and developed the complete impression and plan, agree with above, dictated as a scribe
[2018-06-05 12:20] LABS: ALT 34 U/L (9-52); AST 27 U/L (14-36); Albumin 2.8 g/dL (3.5-5.0); Alkaline Phosphatase 519 U/L (38-126); Anion Gap 10 mmol/L; Blood Urea Nitrogen 14 mg/dL (7-17); Calcium 10.3 mg/dL (8.4-10.2); Carbon Dioxide 25 mmol/L (22-30); Chloride 103 mmol/L (98-107); Glucose 290 mg/dL (74-99); LDH 533 U/L (313-618); Potassium 4.6 mmol/L (3.5-5.1); Sodium 138 mmol/L (137-145); Total Bilirubin 0.8 mg/dL (0.2-1.3); Total Protein 5.8 g/dL (6.3-8.2); Uric Acid 4.1 mg/dL (3.7-7.4)
--- NOTE | 2018-06-05 12:33 | P.HPIM ---
History of Present Illness 67-year-old female presented to the emergency room with complaints of shortness of breath for 2 days fatigue. Complains of some mental confusion. States she has poor appetite. Patient has history of B-cell non-Hodgkin's lymphoma Review of Systems Constitutional: Reports fatigue, Reports fever Respiratory: Reports cough, Reports dyspnea Gastrointestinal: Reports loss of appetite Past Medical History Past Medical History: Cancer, Heart Failure, Diabetes Mellitus, Hyperlipidemia, Hypertension, Sleep Apnea/CPAP/BIPAP, Thyroid Disorder Additional Past Medical History / Comment(s): B-cell non-Hodgkin's lymphoma stage IV, diabetes mellitus,daughter stated pt had first chemo mon 11-20-17 hypertension, hyperlipidemia, obstructive sleep apnea, hypothyroidism post thyroidectomy, closed head injury in 1988, difficulty with mobility and ambulation the patient has been using a walker. has a history of kidney stones Last Myocardial Infarction Date:: 1988 History of Any Multi-Drug Resistant Organisms: None Reported Past Surgical History: Cholecystectomy, Hysterectomy, Tonsillectomy Additional Past Surgical History / Comment(s): Thyroidectomy, lymph node and liver biopsies. port a cath 11-06-17, right ureteroscopy with lithotripsy 12/2014 Past Anesthesia/Blood Transfusion Reactions: Postoperative Nausea & Vomiting (PONV) Past Psychological History: Anxiety Smoking Status: Never smoker Past Alcohol Use History: None Reported Past Drug Use History: Marijuana - Past Family History Mother Family Medical History: Cancer Additional Family Medical History / Comment(s): breast CA Father Family Medical History: Cancer Additional Family Medical History / Comment(s): colon CA Sister(s) Family Medical History: Cancer Additional Family Medical History / Comment(s): Skin cancer Medications and Allergies Home Medications Medication Instructions Recorded Confirmed Type Furosemide 20 mg PO DAILY 09/19/13 06/04/18 History Gabapentin 100 mg PO QAM 09/19/13 06/04/18 History Gabapentin [Neurontin] 200 mg PO HS 12/05/14 06/04/18 History Levothyroxine Sodium [Synthroid] 125 mcg PO MOTUWETHFRSA 12/05/14 06/04/18 History Multivitamins, Thera [Multivitamin 1 tab PO DAILY 05/24/17 06/04/18 History (formulary)] Atorvastatin Calcium [Lipitor] 40 mg PO HS 06/12/17 06/04/18 History Citalopram Hydrobromide [CeleXA] 20 mg PO HS 10/22/17 06/04/18 History metFORMIN HCL 1,000 mg PO BID #0 12/08/17 06/04/18 Rx Cetirizine HCl 10 mg PO HS 03/30/18 06/04/18 History Pantoprazole [Protonix] 40 mg PO DAILY 03/30/18 06/04/18 History Potassium Chloride ER [K-Dur 10] 10 meq PO BID 03/30/18 06/04/18 History HYDROcodone/APAP 7.5-325MG [[place] 1 tab PO Q6HR PRN 05/14/18 06/04/18 History 7.5-325] Ondansetron [Zofran] 4 mg PO Q6H PRN 05/23/18 06/04/18 History ALPRAZolam [Xanax] 0.33 mg PO DAILY PRN 06/04/18 06/04/18 History Allergies Allergy/AdvReac Type Severity Reaction Status Date / Time haloperidol [From Haldol] Allergy Unknown Verified 06/04/18 18:46 haloperidol lactate Allergy Unknown Verified 06/04/18 18:46 [From Haldol] Iodinated Contrast- Oral and Allergy Rash/Hives Verified 06/04/18 18:46 IV Dye [Iodinated Contrast Media - IV Dye] ciprofloxacin [From Cipro] AdvReac Heartburn Verified 06/04/18 18:46 steri-strips AdvReac Severe sore Uncoded 05/23/18 10:57 Physical Exam Vitals: Vital Signs Temp Pulse Pulse Resp BP BP Pulse Ox 06/05/18 11:56 98.3 F 82 17 109/70 97 06/05/18 09:13 97 06/05/18 05:36 97.3 F L 63 16 96/59 99 06/05/18 00:00 16 06/04/18 23:41 100.0 F H 86 16 101/61 96 06/04/18 22:58 99.2 F 95 16 107/61 99 06/04/18 21:40 120/79 95 06/04/18 21:30 122/80 94 L 06/04/18 21:20 122/80 94 L 06/04/18 21:10 108 H 124/90 93 L 06/04/18 21:09 102.3 F H 108 H 16 124/90 93 L 06/04/18 21:00 180/141 06/04/18 20:50 180/141 06/04/18 20:40 116/76 96 06/04/18 20:30 115/70 94 L 06/04/18 20:20 115/70 95 06/04/18 20:10 99 115/70 95 06/04/18 20:00 121/72 95 06/04/18 19:50 99 121/72 95 06/04/18 19:40 131/104 97 06/04/18 19:30 127/76 98 06/04/18 19:20 127/76 98 06/04/18 19:10 123/74 97 06/04/18 19:00 123/74 06/04/18 18:50 123/74 93 L 06/04/18 18:40 98 120/57 93 L 06/04/18 18:30 120/71 92 L 06/04/18 18:20 120/71 94 L 06/04/18 18:10 94 118/70 94 L 06/04/18 18:00 99 118/81 94 L 06/04/18 17:50 118/81 94 L 06/04/18 17:40 123/73 95 06/04/18 17:30 95 121/76 94 L 06/04/18 17:26 95 06/04/18 17:14 99.2 F 95 16 118/73 96 Intake and Output 06/04/18 06/05/18 06/05/18 22:59 06:59 14:59 Intake Total 1250 650 Output Total 100 Balance 1150 650 Intake: Amount of Fluid Infused ( 1250 ml) Intake, IV Titration 650 Amount Piperacillin-Tazobactam 3 100 .375 gm In Sodium Chloride 0.9% 100 ml @ 25 mls/hr IVPB Q8H YVETTE Rx#: [id number] Sodium Chloride 0.9% 1, 300 000 ml @ 50 mls/hr IV . Q20H YVETTE Rx#:[id number] Vancomycin 1,250 mg In 250 Sodium Chloride 0.9% 250 ml @ 125 mls/hr IVPB ONCE STA Rx#:[id number] Output: Urine 100 Uretheral (Sinclair) 100 Other: Voiding Method Incontinent Incontinent Weight 58.967 kg 58 kg - Constitutional General appearance: mild distress - EENT Eyes: PERRLA Ears: bilateral: normal - Neck Neck: normal ROM - Respiratory Respiratory: bilateral: diminished - Cardiovascular Rhythm: regular - Gastrointestinal General gastrointestinal: soft - Integumentary Integumentary: pale - Neurologic Neurologic: CNII-XII intact - Musculoskeletal Musculoskeletal: generalized weakness - Psychiatric Psychiatric: A&O x's 3, appropriate affect, intact judgment & insight Results CBC & Chem 7: 06/05/18 10:45 06/05/18 10:45 Labs: Abnormal Lab Results - Last 24 Hours (Table) 06/04/18 06/04/18 06/04/18 Range/Units 18:00 18:00 19:29 WBC 21.3 H (3.8-10.6) k/uL Hgb (11.4-16.0) gm/dL Hct (34.0-46.0) % MCV 79.0 L (80.0-100.0) fL MCH 23.8 L (25.0-35.0) pg MCHC 30.1 L (31.0-37.0) g/dL RDW 16.9 H (11.5-15.5) % Plt Count (150-450) k/uL Neutrophils # 19.8 H (1.3-7.7) k/uL Lymphocytes # 0.2 L (1.0-4.8) k/uL Sodium 134 L (137-145) mmol/L Chloride 97 L (98-107) mmol/L Glucose 366 H (74-99) mg/dL POC Glucose (mg/dL) 367 H (75-99) mg/dL Calcium 10.3 H (8.4-10.2) mg/dL Alkaline Phosphatase 558 H (38-126) U/L Total Protein 5.4 L (6.3-8.2) g/dL Albumin 2.7 L (3.5-5.0) g/dL Urine Appearance (Clear) Urine Protein (Negative) Urine Glucose (UA) (Negative) Urine WBC (0-5) /hpf Amorphous Sediment (None) /hpf Urine Mucus (None) /hpf 06/04/18 06/05/18 06/05/18 Range/Units 21:08 07:29 10:45 WBC 37.7 H (3.8-10.6) k/uL Hgb 8.8 L D (11.4-16.0) gm/dL Hct 31.0 L (34.0-46.0) % MCV (80.0-100.0) fL MCH 23.0 L (25.0-35.0) pg MCHC 28.4 L (31.0-37.0) g/dL RDW 17.3 H (11.5-15.5) % Plt Count 541 H (150-450) k/uL Neutrophils # (1.3-7.7) k/uL Lymphocytes # (1.0-4.8) k/uL Sodium (137-145) mmol/L Chloride (98-107) mmol/L Glucose (74-99) mg/dL POC Glucose (mg/dL) 341 H (75-99) mg/dL Calcium (8.4-10.2) mg/dL Alkaline Phosphatase (38-126) U/L Total Protein (6.3-8.2) g/dL Albumin (3.5-5.0) g/dL Urine Appearance Cloudy H (Clear) Urine Protein 1+ H (Negative) Urine Glucose (UA) 3+ H (Negative) Urine WBC 7 H (0-5) /hpf Amorphous Sediment Occasional H (None) /hpf Urine Mucus Occasional H (None) /hpf 06/05/18 06/05/18 Range/Units 10:45 11:04 WBC (3.8-10.6) k/uL Hgb (11.4-16.0) gm/dL Hct (34.0-46.0) % MCV (80.0-100.0) fL MCH (25.0-35.0) pg MCHC (31.0-37.0) g/dL RDW (11.5-15.5) % Plt Count (150-450) k/uL Neutrophils # (1.3-7.7) k/uL Lymphocytes # (1.0-4.8) k/uL Sodium (137-145) mmol/L Chloride (98-107) mmol/L Glucose 290 H (74-99) mg/dL POC Glucose (mg/dL) 303 H (75-99) mg/dL Calcium 10.3 H (8.4-10.2) mg/dL Alkaline Phosphatase 519 H (38-126) U/L Total Protein 5.8 L (6.3-8.2) g/dL Albumin 2.8 L (3.5-5.0) g/dL Urine Appearance (Clear) Urine Protein (Negative) Urine Glucose (UA) (Negative) Urine WBC (0-5) /hpf Amorphous Sediment (None) /hpf Urine Mucus (None) /hpf Microbiology - Last 24 Hours (Table) 06/04/18 21:08 Urine Culture - Preliminary Urine,Catheterized Chest x-ray: report reviewed Thrombosis Risk Factor Assmnt - Choose All That Apply Any of the Below Risk Factors Present?: Yes Each Factor Represents 1 point: Heart failure (<1month) Other Risk Factors: Yes Each Risk Factor Represents 2 Points: Age 61-74 years, Central venous access, Malignancy Other congenital or acquired thrombophilia - If yes, enter type in comment: No Thrombosis Risk Factor Assessment Total Risk Factor Score: 7 Thrombosis Risk Factor Assessment Level: High Risk Assessment and Plan Plan: Assessment Fever of undetermined origin Sepsis pneumonia Normocytic anemia Leukocytosis History of B-cell non-Hodgkin's lymphoma stage IV Diabetes type 2 Hypertension Hyperlipidemia Hypothyroidism Sleep apnea with BiPAP Moderate protein calorie deficiency malnutrition Anorexia History of congestive heart failure and pleural effusions Plan Patient on vancomycin and Zosyn Consultation with pulmonology and oncology
--- NOTE | 2018-06-05 13:05 | P.CNPUL ---
History of Present Illness Chief complaint: Fever History of present illness: 67-year-old female patient with known history of stage IV high-grade lymphoma who is coming in for episodes of fever and pneumonia was a consideration for that reason a pulmonary consultation was requested. Please refer to the detailed oncology note regarding her cancer history. The patient was initially found to have incidental retroperitoneal lymphadenopathy left more than right with the largest lymph node measuring 4 cm in size. The computed tomography scan of the abdomen and pelvis showed retroperitoneal adenopathy and some additional lymph nodes in the upper abdomen. CBC was normal with some mild white cell count elevation and neutropenia. The patient underwent a retroperitoneal core biopsy back in May 2017 and the results were positive for B-cell non-Hodgkin's lymphoma, CD5 negative. The patient was diagnosed having a marginal zone lymphoma. PET scan showed the abdominal activity and addition to that there was some scattered areas in the liver that was also involved with the disease. MRI of the liver was of normal and a biopsy of the liver lesion confirmed the presence of small numbers of B-cell lymphocytes and was consistent with lymphoma. The bone marrow I'll see that was done in August 2017 was also consistent with lymphoma. Upon initial monitoring, the patient progressed and a repeat liver biopsy showed presence of a large and small cell lymphoma population and that point the patient was started on systemic chemotherapy and she received R-CEOP and the patient was not given Adriamycin as the patient was suspected of congestion heart failure with poor ejection fraction. The patient completed her systemic chemotherapy and she had received Neulasta for neutropenia. Back in December 2017 she had a brief hospitalization for generalized weakness and fatigue and confusion and she subsequently improved and she was discharged home. Most recent CAT scan of the abdomen all this and chest and the PET scan showed progression of her disease specifically the CAT scan that was done on 05/16/2018 showed worsening in the mid abdominal retroperitoneal adenopathy that was consistent with her most recent PET scan that showed increased uptake at the involved area. No new thoracic or pelvic adenopathy seen. There was also CHF with some small bilateral pleural effusion and interstitial edema. Currently the patient is having no significant shortness of breath. She has low-grade fever. Her cough is dry. No significant sputum production. No pleurisy. No hemoptysis. She had diminished appetite. No nausea vomiting or diarrhea. No aspiration. Initial white count was 21.3 and currently is up to 37.7. The renal function is within normal limits. BNP level is 4720 and influenza screen was negative and the patient was placed on a combination of Zosyn and vancomycin. She is hemodynamically stable at this point in time. On a separate note, the most and echocardiogram that was done on 12/01/2017 showed preserved LV function with an ejection fraction of 55%. No valvular abnormal ities noted. Review of Systems Constitutional: Reports fatigue, Reports fever, Reports lethargy, Reports poor appetite, Reports weakness, Reports weight loss Eyes: denies as per HPI, denies blurred vision, denies bulging eye, denies de creased vision, denies diplopia, denies discharge, denies dry eye, denies irritation, denies itching, denies pain, denies photophobia, denies loss of peripheral vision, denies loss of vision, denies tunnel vision/blind spots Ears: deny: decreased hearing, ear discharge, earache, tinnitus Ears, nose, mouth and throat: Denies headache, Denies sore throat Breasts: absent: as per HPI, change in shape, gynecomastia, masses, nipple discharge, pain, skin changes, swelling Cardiovascular: Reports decreased exercise tolerance, Reports shortness of breath Respiratory: Reports as per HPI Gastrointestinal: Reports as per HPI Genitourinary: Reports as per HPI Menstruation: Reports as per HPI Musculoskeletal: Reports as per HPI Musculoskeletal: bilateral: ankle swelling, absent: ankle pain, ankle stiffness Integumentary: Denies pruritus, Denies rash Neurological: Reports weakness Psychiatric: Reports as per HPI Endocrine: Reports fatigue Hematologic/Lymphatic: Reports as per HPI Allergic/Immunologic: Reports as per HPI Past Medical History Past Medical History: Cancer, Heart Failure, Diabetes Mellitus, Hyperlipidemia, Hypertension, Sleep Apnea/CPAP/BIPAP, Thyroid Disorder Additional Past Medical History / Comment(s): B-cell non-Hodgkin's lymphoma stage IV, diabetes mellitus,daughter stated pt had first chemo mon11-20-17 hypertension, hyperlipidemia, obstructive sleep apnea, hypothyroidism post thyroidectomy, closed head injury in 1988, difficulty with mobility and ambulation the patient has been using a walker. has a history of kidney stones Last Myocardial Infarction Date:: 1988 History of Any Multi-Drug Resistant Organisms: None Reported Past Surgical History: Cholecystectomy, Hysterectomy, Tonsillectomy Additional Past Surgical History / Comment(s): Thyroidectomy, lymph node and liver biopsies. port a cath 11-06-17, right ureteroscopy with lithotripsy 12/2014 Past Anesthesia/Blood Transfusion Reactions: Postoperative Nausea & Vomiting (PONV) Past Psychological History: Anxiety Smoking Status: Never smoker Past Alcohol Use History: None Reported Past Drug Use History: Marijuana - Past Family History Mother Family Medical History: Cancer Additional Family Medical History / Comment(s): breast CA Father Family Medical History: Cancer Additional Family Medical History / Comment(s): colon CA Sister(s) Family Medical History: Cancer Additional Family Medical History / Comment(s): Skin cancer Medications and Allergies Home Medications Medication Instructions Recorded Confirmed Type Furosemide 20 mg PO DAILY 09/19/13 06/04/18 History Gabapentin 100 mg PO QAM 09/19/13 06/04/18 History Gabapentin [Neurontin] 200 mg PO HS 12/05/14 06/04/18 History Levothyroxine Sodium [Synthroid] 125 mcg PO MOTUWETHFRSA 12/05/14 06/04/18 History Multivitamins, Thera [Multivitamin 1 tab PO DAILY 05/24/17 06/04/18 History (formulary)] Atorvastatin Calcium [Lipitor] 40 mg PO HS 06/12/17 06/04/18 History Citalopram Hydrobromide [CeleXA] 20 mg PO HS 10/22/17 06/04/18 History metFORMIN HCL 1,000 mg PO BID #0 12/08/17 06/04/18 Rx Cetirizine HCl 10 mg PO HS 03/30/18 06/04/18 History Pantoprazole [Protonix] 40 mg PO DAILY 03/30/18 06/04/18 History Potassium Chloride ER [K-Dur 10] 10 meq PO BID 03/30/18 06/04/18 History HYDROcodone/APAP 7.5-325MG [[place] 1 tab PO Q6HR PRN 05/14/18 06/04/18 History 7.5-325] Ondansetron [Zofran] 4 mg PO Q6H PRN 05/23/18 06/04/18 History ALPRAZolam [Xanax] 0.33 mg PO DAILY PRN 06/04/18 06/04/18 History Allergies Allergy/AdvReac Type Severity Reaction Status Date / Time haloperidol [From Haldol] Allergy Unknown Verified 06/04/18 18:46 haloperidol lactate Allergy Unknown Verified 06/04/18 18:46 [From Haldol] Iodinated Contrast- Oral and Allergy Rash/Hives Verified 06/04/18 18:46 IV Dye [Iodinated Contrast Media - IV Dye] ciprofloxacin [From Cipro] AdvReac Heartburn Verified 06/04/18 18:46 steri-strips AdvReac Severe sore Uncoded 05/23/18 10:57 Physical Exam Vitals: Vital Signs Temp Pulse Pulse Resp BP BP Pulse Ox 06/05/18 11:56 98.3 F 82 17 109/70 97 06/05/18 09:13 97 06/05/18 05:36 97.3 F L 63 16 96/59 99 06/05/18 00:00 16 06/04/18 23:41 100.0 F H 86 16 101/61 96 06/04/18 22:58 99.2 F 95 16 107/61 99 06/04/18 21:40 120/79 95 06/04/18 21:30 122/80 94 L 06/04/18 21:20 122/80 94 L 06/04/18 21:10 108 H 124/90 93 L 06/04/18 21:09 102.3 F H 108 H 16 124/90 93 L 06/04/18 21:00 180/141 06/04/18 20:50 180/141 06/04/18 20:40 116/76 96 06/04/18 20:30 115/70 94 L 06/04/18 20:20 115/70 95 06/04/18 20:10 99 115/70 95 06/04/18 20:00 121/72 95 06/04/18 19:50 99 121/72 95 06/04/18 19:40 131/104 97 06/04/18 19:30 127/76 98 06/04/18 19:20 127/76 98 06/04/18 19:10 123/74 97 06/04/18 19:00 123/74 06/04/18 18:50 123/74 93 L 06/04/18 18:40 98 120/57 93 L 06/04/18 18:30 120/71 92 L 06/04/18 18:20 120/71 94 L 06/04/18 18:10 94 118/70 94 L 06/04/18 18:00 99 118/81 94 L 06/04/18 17:50 118/81 94 L 06/04/18 17:40 123/73 95 06/04/18 17:30 95 121/76 94 L 06/04/18 17:26 95 06/04/18 17:14 99.2 F 95 16 118/73 96 Intake and Output 06/04/18 06/05/18 06/05/18 22:59 06:59 14:59 Intake Total 1250 650 Output Total 100 Balance 1150 650 Intake: Amount of Fluid Infused ( 1250 ml) Intake, IV Titration 650 Amount Piperacillin-Tazobactam 3 100 .375 gm In Sodium Chloride 0.9% 100 ml @ 25 mls/hr IVPB Q8H [facility] Rx#: [id number] Sodium Chloride 0.9% 1, 300 000 ml @ 50 mls/hr IV . Q20H [facility] Rx#:[id number] Vancomycin 1,250 mg In 250 Sodium Chloride 0.9% 250 ml @ 125 mls/hr IVPB ONCE STA Rx#:[id number] Output: Urine 100 Uretheral ([place]) 100 Other: Voiding Method Incontinent Incontinent Weight 58.967 kg 58 kg The patient appeared well nourished and normally developed. Vital signs as documented. Head exam is unremarkable. No scleral icterus or corneal arcus noted. Neck is without jugular venous distension, thyromegaly, or carotid bruits. Carotid upstrokes are brisk bilaterally. Lungs diminished breath sounds bilaterally especially in the lung bases.. Cardiac exam reveals the PMI to be normally sized and situated. Rhythm is regular. First and second heart sounds normal. No murmurs, rubs or gallops. Abdominal exam reveals normal bowel sounds, no masses, no organomegaly and no aortic enlargement. Extremities are +1 pitting edematous and both femoral and pedal pulses are normal. The patient has some edema in lower extremities bilaterally.Examination of the skin revealed no evidence of significant rashes, suspicious appearing nevi or other concerning lesions. Neurologically awake and alert and is no focal neurological deficits. Results - Laboratory Findings CBC and BMP: 06/05/18 10:45 06/05/18 10:45 PT/INR, D-dimer PT 10.9 sec (9.0-12.0) 06/04/18 18:00 INR 1.0 (<1.2) 06/04/18 18:00 Abnormal lab findings: Abnormal Labs 06/04/18 06/04/18 06/04/18 18:00 18:00 19:29 WBC 21.3 H Hgb Hct MCV 79.0 L MCH 23.8 L MCHC 30.1 L RDW 16.9 H Plt Count Neutrophils # 19.8 H Lymphocytes # 0.2 L Sodium 134 L Chloride 97 L Glucose 366 H POC Glucose (mg/dL) 367 H Calcium 10.3 H Alkaline Phosphatase 558 H Total Protein 5.4 L Albumin 2.7 L Urine Appearance Urine Protein Urine Glucose (UA) Urine WBC Amorphous Sediment Urine Mucus 06/04/18 06/05/18 06/05/18 21:08 07:29 10:45 WBC 37.7 H Hgb 8.8 L D Hct 31.0 L MCV MCH 23.0 L MCHC 28.4 L RDW 17.3 H Plt Count 541 H Neutrophils # Lymphocytes # Sodium Chloride Glucose POC Glucose (mg/dL) 341 H Calcium Alkaline Phosphatase Total Protein Albumin Urine Appearance Cloudy H Urine Protein 1+ H Urine Glucose (UA) 3+ H Urine WBC 7 H Amorphous Sediment Occasional H Urine Mucus Occasional H 06/05/18 06/05/18 10:45 11:04 WBC Hgb Hct MCV MCH MCHC RDW Plt Count Neutrophils # Lymphocytes # Sodium Chloride Glucose 290 H POC Glucose (mg/dL) 303 H Calcium 10.3 H Alkaline Phosphatase 519 H Total Protein 5.8 L Albumin 2.8 L Urine Appearance Urine Protein Urine Glucose (UA) Urine WBC Amorphous Sediment Urine Mucus - Diagnostic Findings Chest x-ray: image reviewed Assessment and Plan Plan: Assessment 1 fever under investigation, consider fever secondary to malignancy, she will fever very much likely. Infections are felt to be less likely at this point although cultures of been sent and broad-spectrum antibiotics have been initiated 2 bilateral pleural effusion, chronic, consider lymphomatous effusion 3 leukocytosis 4 stage IV non-Hodgkin's lymphoma and the patient has completed R-CEOP and subsequently the disease progress and the patient has received Hycela and bendamustine, status Post Cycle 2 03/06/18 5 anorexia 6 normocytic anemia secondary to systemic chemotherapy/lymphoma 7 hypertension 8 hyperlipidemia 9 hypothyroidism 10 diabetes mellitus PLAN Monitor the fever pattern. Awaiting results of the culture. Continue same antibiotic coverage. My impression is that the patient is consistent with lymphoma progression with lymphoma related fever and pleural effusions and overall debility secondary to underlying hematologic malignancy. We'll continue to follow. Oncology is on the case.
[2018-06-05 14:28] LABS: Polychromasia Present
[2018-06-05 17:16] LABS: Glucose,Whole Blood 256 mg/dL (75-99)
[2018-06-05 21:28] LABS: Glucose,Whole Blood 291 mg/dL (75-99)
[2018-06-05] MEDS: INSULIN DETEMIR (LEVEMIR) 100 UNIT/ML SYR SQ SCH (22:21)
[2018-06-05] MEDS: ATORVASTATIN 40 MG TAB PO SCH (22:22)
[2018-06-05] MEDS: metFORMIN 500 MG TAB PO SCH (22:22)
[2018-06-05] MEDS: GABAPENTIN 100 MG CAP PO SCH (22:22)
[2018-06-05] MEDS: CITALOPRAM HYDROBROMIDE 20 MG TAB PO SCH (22:23)
[2018-06-05] MEDS: LORATADINE 10 MG TAB PO SCH (22:23)
[2018-06-05] MEDS: POTASSIUM CHLORIDE ER 10 MEQ TAB.ER.PRT PO SCH (22:36)
[2018-06-06] MEDS: HYDROcodone/APAP 7.5-325MG 1 EACH TAB PO PRN ×4 (04:29→23:16)
[2018-06-06] MEDS: PIPERACILLIN-TAZOBACTAM 3.375 GM in SODIUM CHLORIDE 0.9% 100 ML IVPB SCH ×3 (04:29→18:20)
[2018-06-06] MEDS: LEVOTHYROXINE 125 MCG TAB PO SCH (06:16)
[2018-06-06 07:04] LABS: Glucose,Whole Blood 224 mg/dL (75-99)
[2018-06-06] MEDS: FUROSEMIDE 20 MG TAB PO SCH (08:32)
[2018-06-06] MEDS: GABAPENTIN 100 MG CAP PO SCH ×2 (08:32→23:12)
[2018-06-06] MEDS: metFORMIN 500 MG TAB PO SCH ×2 (08:32→23:16)
[2018-06-06] MEDS: MULTIVITAMINS, THERA 1 EACH TAB PO SCH (08:32)
[2018-06-06] MEDS: INSULIN ASPART (NovoLOG) 100 UNIT/ML VIAL SQ SCH ×4 (08:32→23:16)
[2018-06-06] MEDS: PANTOPRAZOLE 40 MG TABLET PO SCH (08:32)
[2018-06-06] MEDS: POTASSIUM CHLORIDE ER 10 MEQ TAB.ER.PRT PO SCH ×2 (08:32→23:16)
[2018-06-06] MEDS: VANCOMYCIN 1,000 MG in SODIUM CHLORIDE 0.9% 250 ML IVPB SCH ×2 (09:21→23:17)
[2018-06-06] MEDS ORDERED: methylPREDNISolone SOD SUCCI 125 MG/2 ML VIAL IV STA (09:51)
[2018-06-06] MEDS ORDERED: diphenhydrAMINE 50 MG/ML 1 ML VIAL IVP STA (09:52)
[2018-06-06] MEDS ORDERED: FAMOTIDINE 20 MG/2 ML VIAL IV ONE (09:53)
[2018-06-06 10:22] LABS: Calcium 10.3 mg/dL (8.4-10.2); Potassium 3.9 mmol/L (3.5-5.1)
[2018-06-06] MEDS ORDERED: HYDROmorphone 0.5 MG/0.5 ML SYRINGE IVP PRN (11:50)
--- NOTE | 2018-06-06 12:25 | P.PN ---
Subjective Progress Note Date: 06/06/18 Principal diagnosis: Fever T max overnight 100.4, afebrile this am. She is scheduled for retroperitoneal mass biopsy today. Objective - Vital Signs Vital signs: Vital Signs Temp 98.3 F 06/06/18 05:42 Pulse 153 H 06/06/18 05:42 Resp 18 06/06/18 05:42 BP 124/76 06/06/18 05:42 Pulse Ox 94 L 06/06/18 05:42 Intake & Output 06/05/18 06/06/18 06/06/18 18:59 06:59 18:59 Intake Total 750 850 Balance 750 850 Weight 58 kg 64 kg Intake: IV 750 350 Piperacillin-Tazobactam 3 100 50 .375 gm In Sodium Chloride 0.9% 100 ml @ 25 mls/hr IVPB Q8H [facility] Rx#: [id number] Sodium Chloride 0.9% 1, 400 300 000 ml @ 50 mls/hr IV . Q20H [facility] Rx#:[id number] Vancomycin 1,000 mg In 250 Sodium Chloride 0.9% 250 ml @ 125 mls/hr IVPB Q12H [facility] Rx#:[id number] Intake, IV Titration 250 Amount Vancomycin 1,000 mg In 250 Sodium Chloride 0.9% 250 ml @ 125 mls/hr IVPB Q12H [facility] Rx#:[id number] Oral 250 Other: Voiding Method Incontinent Incontinent # Voids 2 1 - Exam Gen: Alert and Oriented, NAD Head: NC, NT Neck: Supple Mouth: Dry no lesions Lungs: Diminished bibasilar, no increased effort noted Heart RRR, S1 Abdomen S/ND/NT Ext: BLE 1+ Edema Neuro: No sensory or motor Deficits. - Labs CBC & Chem 7: 06/06/18 13:15 06/06/18 09:15 Labs: Abnormal Lab Results - Last 24 Hours (Table) 06/05/18 06/05/18 06/05/18 Range/Units 10:45 10:45 13:03 WBC 37.7 H (3.8-10.6) k/uL Hgb 8.8 L D (11.4-16.0) gm/dL Hct 31.0 L (34.0-46.0) % MCH 23.0 L (25.0-35.0) pg MCHC 28.4 L (31.0-37.0) g/dL RDW 17.3 H (11.5-15.5) % Plt Count 541 H (150-450) k/uL Neutrophils # 35.5 H (1.3-7.7) k/uL Lymphocytes # 0.4 L (1.0-4.8) k/uL Monocytes # 1.3 H (0-1.0) k/uL Glucose 290 H (74-99) mg/dL POC Glucose (mg/dL) (75-99) mg/dL Calcium 10.3 H (8.4-10.2) mg/dL Ionized Calcium Colin 5.7 H (4.5-5.3) mg/dL Alkaline Phosphatase 519 H (38-126) U/L Total Protein 5.8 L (6.3-8.2) g/dL Albumin 2.8 L (3.5-5.0) g/dL 06/05/18 06/05/18 06/06/18 Range/Units 17:15 21:26 07:02 WBC (3.8-10.6) k/uL Hgb (11.4-16.0) gm/dL Hct (34.0-46.0) % MCH (25.0-35.0) pg MCHC (31.0-37.0) g/dL RDW (11.5-15.5) % Plt Count (150-450) k/uL Neutrophils # (1.3-7.7) k/uL Lymphocytes # (1.0-4.8) k/uL Monocytes # (0-1.0) k/uL Glucose (74-99) mg/dL POC Glucose (mg/dL) 256 H 291 H 224 H (75-99) mg/dL Calcium (8.4-10.2) mg/dL Ionized Calcium Colin (4.5-5.3) mg/dL Alkaline Phosphatase (38-126) U/L Total Protein (6.3-8.2) g/dL Albumin (3.5-5.0) g/dL 06/06/18 Range/Units 09:15 WBC (3.8-10.6) k/uL Hgb (11.4-16.0) gm/dL Hct (34.0-46.0) % MCH (25.0-35.0) pg MCHC (31.0-37.0) g/dL RDW (11.5-15.5) % Plt Count (150-450) k/uL Neutrophils # (1.3-7.7) k/uL Lymphocytes # (1.0-4.8) k/uL Monocytes # (0-1.0) k/uL Glucose 173 H (74-99) mg/dL POC Glucose (mg/dL) (75-99) mg/dL Calcium 10.3 H (8.4-10.2) mg/dL Ionized Calcium Colin (4.5-5.3) mg/dL Alkaline Phosphatase (38-126) U/L Total Protein (6.3-8.2) g/dL Albumin (3.5-5.0) g/dL Microbiology - Last 24 Hours (Table) 06/04/18 21:08 Urine Culture - Final Urine,Catheterized 06/04/18 18:00 Blood Culture - Preliminary Blood No Growth after 24 hours Assessment and Plan Plan: Fevers: - Unknown Etiology, potential tumor fever although T-max in 24 hours 100.4, this is improved - Thornton cultures ordered - Chest Xray Negative - Zosyn Leukocytosis: Likely reactive - Work-up for infectious process with fever, could be related to malignancy - Baseline 11-15 - Primarily neutrophils - Worsening today - 33 - Likely related to stress dose steroids received on admission - Await tomorrow WBC with diff - Blood Cultures negative at 48 hours - Urine Culture Negative NHL: - Most recently status post treatment with Hycela and bendamustine, status Post Cycle 2 03/06/18 - Prior to above status post treatment with R-Ceop - Highly suspicious for progrssion: CT C/A/P reviewed and discussed with patient, definite progression cannot be ruled out. - Status Post EGD for concern of penetrative lymphoma to Gastric/Esophageal wall - Path did not identify evidence of malignancy - Retroperitoneal Biopsy today 06/06/18 Anorexia and weight loss: - Megace recently ordered Persisitent Nausea and Abdominal Pain: - GI Work-up and CT Scans Reviewed from previous admission Normocytic Anemia: Secondary to chemo and lymphoma - CBC and CMP in am - Hemoglobin Decreased 8 - Initial drop 12-8.8. No active bleeding noted, likely from dilution - Will order anemia work-up Myopathy and Debility: - Rec PT/OT wwork with Patient Hypercalcemia: - Uric Acid 4.2, Check Phos - Continue IVF, - Secondary to dehydration malignancy, monitor for tumor lysis - CMP in am Physcian Attest: I have completed the full history and physical and developed the complete impression and plan, agree with above, dictated as a scribe
--- NOTE | 2018-06-06 13:01 | CT ---
EXAMINATION TYPE: CT biopsy abdomen percutaneous DATE OF EXAM: 06/06/2018 HISTORY: Retroperitoneal mass, lymphoma COMPARISON: CT 05/15/2018 Maximal barrier technique was utilized. The skin overlying a suitable path to the lesion was localiz ed using CT and the overlying skin was prepped and draped. Lidocaine used for local anesthesia. A s kin kendall made with a scalpel. Using CT guidance, access was gained to the right-sided retroperitonea l mass with a 17-gauge guide needle. Coaxial placement of an 18-gauge needle was performed and core s pecimen submitted to cytology. 2 passes were performed in all. Following the procedure no immediate complications. The patient is discharged in stable condition. Hemostasis achieved. IMPRESSION: SUCCESSFUL CT GUIDED RETROPERITONEAL CORE BIOPSY. PATHOLOGY PENDING. THIS PROCEDURE WAS PERFORMED B Y THE UNDERSIGNED.
[2018-06-06 13:08] LABS: Glucose,Whole Blood 207 mg/dL (75-99)
--- NOTE | 2018-06-06 13:31 | P.PN ---
Subjective Patient just returned from retroperitoneal mass biopsy. Patient continues to complain of generalized pain and fatigue. Patient has had consultation with oncology and pulmonology Objective - Vital Signs Vital signs: Vital Signs Temp 98.3 F 06/06/18 13:08 Pulse 87 06/06/18 13:08 Resp 16 06/06/18 13:08 BP 95/58 06/06/18 13:08 Pulse Ox 97 06/06/18 13:08 Intake & Output 06/05/18 06/06/18 06/06/18 18:59 06:59 18:59 Intake Total 750 850 Balance 750 850 Weight 58 kg 64 kg Intake: IV 750 350 Piperacillin-Tazobactam 3 100 50 .375 gm In Sodium Chloride 0.9% 100 ml @ 25 mls/hr IVPB Q8H [facility] Rx#: [id number] Sodium Chloride 0.9% 1, 400 300 000 ml @ 50 mls/hr IV . Q20H [facility] Rx#:[id number] Vancomycin 1,000 mg In 250 Sodium Chloride 0.9% 250 ml @ 125 mls/hr IVPB Q12H [facility] Rx#:[id number] Intake, IV Titration 250 Amount Vancomycin 1,000 mg In 250 Sodium Chloride 0.9% 250 ml @ 125 mls/hr IVPB Q12H [facility] Rx#:[id number] Oral 250 Other: Voiding Method Incontinent Incontinent # Voids 2 1 - Constitutional General appearance: Present: mild distress - EENT Eyes: Present: PERRLA Ears: bilateral: normal - Neck Neck: Present: normal ROM - Respiratory Respiratory: bilateral: diminished - Cardiovascular Rhythm: regular - Gastrointestinal General gastrointestinal: Present: soft - Integumentary Integumentary: Present: normal - Neurologic Neurologic: Present: CNII-XII intact - Musculoskeletal Musculoskeletal: Present: generalized weakness - Psychiatric Psychiatric Comment(s): Patient having problems with short-term memory Psychiatric: Present: A&O x's 3, appropriate affect, intact judgment & insight - Labs CBC & Chem 7: 06/05/18 10:45 06/06/18 09:15 Labs: Abnormal Lab Results - Last 24 Hours (Table) 06/05/18 06/05/18 06/05/18 Range/Units 10:45 13:03 17:15 WBC 37.7 H (3.8-10.6) k/uL Hgb 8.8 L D (11.4-16.0) gm/dL Hct 31.0 L (34.0-46.0) % MCH 23.0 L (25.0-35.0) pg MCHC 28.4 L (31.0-37.0) g/dL RDW 17.3 H (11.5-15.5) % Plt Count 541 H (150-450) k/uL Neutrophils # 35.5 H (1.3-7.7) k/uL Lymphocytes # 0.4 L (1.0-4.8) k/uL Monocytes # 1.3 H (0-1.0) k/uL Glucose (74-99) mg/dL POC Glucose (mg/dL) 256 H (75-99) mg/dL Calcium (8.4-10.2) mg/dL Ionized Calcium Colin 5.7 H (4.5-5.3) mg/dL 06/05/18 06/06/18 06/06/18 Range/Units 21:26 07:02 09:15 WBC (3.8-10.6) k/uL Hgb (11.4-16.0) gm/dL Hct (34.0-46.0) % MCH (25.0-35.0) pg MCHC (31.0-37.0) g/dL RDW (11.5-15.5) % Plt Count (150-450) k/uL Neutrophils # (1.3-7.7) k/uL Lymphocytes # (1.0-4.8) k/uL Monocytes # (0-1.0) k/uL Glucose 173 H (74-99) mg/dL POC Glucose (mg/dL) 291 H 224 H (75-99) mg/dL Calcium 10.3 H (8.4-10.2) mg/dL Ionized Calcium Colin (4.5-5.3) mg/dL 06/06/18 Range/Units 13:05 WBC (3.8-10.6) k/uL Hgb (11.4-16.0) gm/dL Hct (34.0-46.0) % MCH (25.0-35.0) pg MCHC (31.0-37.0) g/dL RDW (11.5-15.5) % Plt Count (150-450) k/uL Neutrophils # (1.3-7.7) k/uL Lymphocytes # (1.0-4.8) k/uL Monocytes # (0-1.0) k/uL Glucose (74-99) mg/dL POC Glucose (mg/dL) 207 H (75-99) mg/dL Calcium (8.4-10.2) mg/dL Ionized Calcium Colin (4.5-5.3) mg/dL Microbiology - Last 24 Hours (Table) 06/04/18 21:08 Urine Culture - Final Urine,Catheterized 06/04/18 18:00 Blood Culture - Preliminary Blood No Growth after 24 hours Assessment and Plan Plan: Assessment Fever of undetermined origin Normocytic anemia B-cell non-Hodgkin's lymphoma stage IV Diabetes type 2 Postbiopsy retroperitoneal mass Hypertension Hyperlipidemia Hypothyroidism Malnutrition protein calorie deficiency anorexia Leukocytosis Pleural effusion Sepsis pneumonia Plan Continue consultation with pulmonology and oncology Patient remains no code
--- NOTE | 2018-06-06 13:56 | P.PN ---
Subjective Progress Note Date: 06/06/18 Principal diagnosis: Fever, 100 investigation, likely related to progression of non-Hodgkin's lymphoma This is a 67-year-old female patient with known history of stage IV high-grade lymphoma who is coming in for episodes of fever and pneumonia was a consideration for that reason a pulmonary consultation was requested. Please refer to the detailed oncology note regarding her cancer history. The patient was initially found to have incidental retroperitoneal lymphadenopathy left more than right with the largest lymph node measuring 4 cm in size. The computed tomography scan of the abdomen and pelvis showed retroperitoneal adenopathy and some additional lymph nodes in the upper abdomen. CBC was normal with some mild white cell count elevation and neutropenia. The patient underwent a retroperitoneal core biopsy back in May 2017 and the results were positive for B-cell non-Hodgkin's lymphoma, CD5 negative. The patient was diagnosed having a marginal zone lymphoma. PET scan showed the abdominal activity and addition to that there was some scattered areas in the liver that was also involved with the disease. MRI of the liver was of normal and a biopsy of the liver lesion confirmed the presence of small numbers of B-cell lymphocytes and was consistent with lymphoma. The bone marrow I'll see that was done in August 2017 was also consistent with lymphoma. Upon initial monitoring, the patient progressed and a repeat liver biopsy showed presence of a large and small cell lymphoma population and that point the patient was started on systemic chemotherapy and she received R-CEOP and the patient was not given Adriamycin as the patient was suspected of congestion heart failure with poor ejection fraction. The patient completed her systemic chemotherapy and she had received Neulasta for neutropenia. Back in December 2017 she had a brief hospitalization for generalized weakness and fatigue and confusion and she subsequently improved and she was discharged home. Most recent CAT scan of the abdomen all this and chest and the PET scan showed progression of her disease specifically the CAT scan that was done on 05/16/2018 showed worsening in the mid abdominal retroperitoneal adenopathy that was consistent with her most recent PET scan that showed increased uptake at the involved area. No new thoracic or pelvic adenopathy seen. There was also CHF with some small bilateral pleural effusion and interstitial edema. Currently the patient is having no significant shortness of breath. She has low-grade fever. Her cough is dry. No significant sputum production. No pleurisy. No hemoptysis. She had diminished appetite. No nausea vomiting or diarrhea. No aspiration. Initial white count was 21.3 and currently is up to 37.7. The renal function is within normal limits. BNP level is 4720 and influenza screen was negative and the patient was placed on a combination of Zosyn and vancomycin. She is hemodynamically stable at this point in time. On a separate note, the most and echocardiogram that was done on 12/01/2017 showed preserved LV function with an ejection fraction of 55%. No valvular abnormalities noted. On 06/06/2018 patient seen in follow-up on medical surgical floor. Patient is scheduled for a biopsy of the retroperitoneal mass today by interventional radiology. She is up in the wheelchair, getting ready to be taken downstairs, she had been given some occasion for anxiety, but she is awake and alert, on 2 L of oxygen her pulse ox is 97%, she is afebrile, she denies any shortness of breath. Lung sounds are clear, diminished at the bases, last episode of fever was yesterday at 2140 with a temperature of 100.4F, patient has been afebrile overnight. Urine and blood culture showed no growth. Today's lab work showed BNP and renal profile within normal limits. Objective - Vital Signs Vital signs: Vital Signs Temp 98.3 F 06/06/18 13:23 Pulse 82 06/06/18 13:23 Resp 16 06/06/18 13:23 BP 107/59 06/06/18 13:23 Pulse Ox 97 06/06/18 13:23 Intake & Output 06/05/18 06/06/18 06/06/18 18:59 06:59 18:59 Intake Total 750 850 Balance 750 850 Weight 58 kg 64 kg Intake: IV 750 350 Piperacillin-Tazobactam 3 100 50 .375 gm In Sodium Chloride 0.9% 100 ml @ 25 mls/hr IVPB Q8H [facility] Rx#: [id number] Sodium Chloride 0.9% 1, 400 300 000 ml @ 50 mls/hr IV . Q20H [facility] Rx#:[id number] Vancomycin 1,000 mg In 250 Sodium Chloride 0.9% 250 ml @ 125 mls/hr IVPB Q12H [facility] Rx#:[id number] Intake, IV Titration 250 Amount Vancomycin 1,000 mg In 250 Sodium Chloride 0.9% 250 ml @ 125 mls/hr IVPB Q12H [facility] Rx#:[id number] Oral 250 Other: Voiding Method Incontinent Incontinent # Voids 2 1 - Exam GENERAL EXAM: Alert, pleasant, frail and pale 67-year-old white female on 2 L of oxygen, comfortable in no apparent distress. HEAD: Normocephalic/atraumatic. EYES: Normal reaction of pupils, equal size. Conjunctiva pink, sclera white. NOSE: Clear with pink turbinates. THROAT: No erythema or exudates. NECK: No masses, no JVD, no thyroid enlargement, no adenopathy. CHEST: No chest wall deformity. Symmetrical expansion. Right chest MediPort is in place, access, with IV fluids infusing through it LUNGS: Equal air entry with no crackles, wheeze, rhonchi or dullness. Image breath sounds at the bases CVS: Regular rate and rhythm, normal S1 and S2, no gallops, no murmurs, no rubs ABDOMEN: Soft, nontender. No hepatosplenomegaly, normal bowel sounds, no guarding or rigidity. EXTREMITIES: No clubbing, no edema, no cyanosis, 2+ pulses and upper and lower extremities. MUSCULOSKELETAL: Muscle strength and tone normal. SPINE: No scoliosis or deformity SKIN: No rashes CENTRAL NERVOUS SYSTEM: Alert and oriented -3. No focal deficits, tone is normal in all 4 extremities. PSYCHIATRIC: Alert and oriented -3. Appropriate affect. Intact judgment and insight. - Labs CBC & Chem 7: 06/05/18 10:45 06/06/18 09:15 Labs: Abnormal Lab Results - Last 24 Hours (Table) 06/05/18 06/05/18 06/05/18 Range/Units 10:45 17:15 21:26 WBC 37.7 H (3.8-10.6) k/uL Hgb 8.8 L D (11.4-16.0) gm/dL Hct 31.0 L (34.0-46.0) % MCH 23.0 L (25.0-35.0) pg MCHC 28.4 L (31.0-37.0) g/dL RDW 17.3 H (11.5-15.5) % Plt Count 541 H (150-450) k/uL Neutrophils # 35.5 H (1.3-7.7) k/uL Lymphocytes # 0.4 L (1.0-4.8) k/uL Monocytes # 1.3 H (0-1.0) k/uL Glucose (74-99) mg/dL POC Glucose (mg/dL) 256 H 291 H (75-99) mg/dL Calcium (8.4-10.2) mg/dL 06/06/18 06/06/18 06/06/18 Range/Units 07:02 09:15 13:05 WBC (3.8-10.6) k/uL Hgb (11.4-16.0) gm/dL Hct (34.0-46.0) % MCH (25.0-35.0) pg MCHC (31.0-37.0) g/dL RDW (11.5-15.5) % Plt Count (150-450) k/uL Neutrophils # (1.3-7.7) k/uL Lymphocytes # (1.0-4.8) k/uL Monocytes # (0-1.0) k/uL Glucose 173 H (74-99) mg/dL POC Glucose (mg/dL) 224 H 207 H (75-99) mg/dL Calcium 10.3 H (8.4-10.2) mg/dL Microbiology - Last 24 Hours (Table) 06/04/18 21:08 Urine Culture - Final Urine,Catheterized 06/04/18 18:00 Blood Culture - Preliminary Blood No Growth after 24 hours Assessment and Plan Plan: Assessment: 1 fever under investigation, consider fever secondary to malignancy, she will fever very much likely. Infections are felt to be less likely at this point although cultures of been sent and broad-spectrum antibiotics have been initiated 2 bilateral pleural effusion, chronic, consider lymphomatous effusion 3 leukocytosis 4 stage IV non-Hodgkin's lymphoma and the patient has completed R-CEOP and subsequently the disease progress and the patient has received Hycela and bendamustine, status Post Cycle 2 03/06/18 5 anorexia 6 normocytic anemia secondary to systemic chemotherapy/lymphoma 7 hypertension 8 hyperlipidemia 9 hypothyroidism 10 diabetes mellitus Plan: Continue same antibiotic coverage, fever is likely related to progression of underlying malignancy, and patient is undergoing biopsy of the retroperitoneal mass today. No pulmonary complaints, no shortness of breath, no cough or congestion. Afebrile overnight, hemodynamically stable. Medical oncology is following. I performed a history & physical examination of the patient and discussed their management with my nurse practitioner, Courtney Squires. I reviewed the nurse practitioner's note and agree with the documented findings and plan of care. Lung sounds are positive for clear breath sounds, diminished at the bases. The findings and the impression was discussed with the patient. I attest to the documentation by the nurse practitioner. Time with Patient: Less than 30
[2018-06-06 14:01] LABS: Anisocytosis Slight; Basophils # (A) 0.1 k/uL (0-0.2); Basophils % (A) 0 %; Eosinophils # (A) 0.1 k/uL (0-0.7); Eosinophils % (A) 0 %; Hypochromasia Marked; Lymphocytes # (A) 0.3 k/uL (1.0-4.8); Lymphocytes % (A) 1 %; MCH 23.2 pg (25.0-35.0); MCHC 27.4 g/dL (31.0-37.0); MCV 84.6 fL (80.0-100.0); Mean Platelet Volume 7.1; Monocytes # (A) 0.6 k/uL (0-1.0); Monocytes % (A) 2 %; Neutrophils # (A) 32.2 k/uL (1.3-7.7); Neutrophils % (A) 96 %; Platelet Count 550 k/uL (150-450); Poikilocytosis Slight; RBC 3.43 m/uL (3.80-5.40); RDW 16.5 % (11.5-15.5); WBC 33.4 k/uL (3.8-10.6)
--- NOTE | 2018-06-06 14:20 | CDI ---
Documentation Clarification Form Date: 06/06/2018 1:43:26 PM From: Tootie Tabor RN, CCDS Admit Date: 06/04/2018 9:14:00 PM Patient Name: Maricruz Ledezma Visit Number: [id number] Discharge Date: ATTENTION: The Clinical Documentation Specialists (CDI) and [facility] Coding Staff appreciate your assistance in clarifying documentation. Please respond to the clarification below the line at the bottom and electronically sign. The CDI & [facility] Coding staff will review the response and follow-up if needed. Please note: Queries are made part of the Legal Health Record. If you have any questions, please contact the author of this message via ITS. Dr. Leonard Solano CHF is documented in the past medical history and is noted on chest ray. History/Risk Factors: B-cell non-Hodgkin 's lymphoma stage IV, Heart failure, Diabetes Mellitus, Hypertension Clinical Indicators: 67-year-old female presenting with complaints of fever, pallor, some shortness of breath. VS/Pulse OX: 118/73 95 136 99.2 96 % RA BNP: 4720 Echocardiogram Results: 12/01/2017 EF 55 % (per Dr. Rayo consult on 06/05/17) Chest X Ray: Impression: Congestive heart failure with plural effusions. No significant change Treatment: Lasix po daily In your professional opinion, can you please clarify the acuity and type of CHF if known? Systolic Heart Failure: Acute Chronic Acute on Chronic Diastolic Heart Failure: Acute Chronic Acute on Chronic Systolic & Diastolic Heart Failure: Acute Chronic Acute on Chronic Heart Failure Unable to Determine Other, please specify (Last Revision: May 2017) MTDD
[2018-06-06 16:46] LABS: Glucose,Whole Blood 272 mg/dL (75-99)
[2018-06-06] MEDS: SODIUM CHLORIDE 0.9% 1,000 ML IV SCH (17:42)
[2018-06-06] MEDS ORDERED: VANCOMYCIN TROUGH DUE 1 EACH MISC MISCELLANE ONE (20:00)
[2018-06-06 20:29] LABS: Glucose,Whole Blood 317 mg/dL (75-99)
[2018-06-06] MEDS: CITALOPRAM HYDROBROMIDE 20 MG TAB PO SCH (23:12)
[2018-06-06] MEDS: ATORVASTATIN 40 MG TAB PO SCH (23:12)
[2018-06-06] MEDS: INSULIN DETEMIR (LEVEMIR) 100 UNIT/ML SYR SQ SCH (23:13)
[2018-06-06 23:14] LABS: Glucose,Whole Blood 367 mg/dL (75-99)
[2018-06-06] MEDS: LORATADINE 10 MG TAB PO SCH (23:16)
[2018-06-07] MEDS: PIPERACILLIN-TAZOBACTAM 3.375 GM in SODIUM CHLORIDE 0.9% 100 ML IVPB SCH ×3 (04:32→18:04)
[2018-06-07] MEDS: LEVOTHYROXINE 125 MCG TAB PO SCH (06:25)
[2018-06-07 06:57] LABS: Glucose,Whole Blood 396 mg/dL (75-99)
[2018-06-07] MEDS: PANTOPRAZOLE 40 MG TABLET PO SCH (07:56)
[2018-06-07] MEDS: INSULIN ASPART (NovoLOG) 100 UNIT/ML VIAL SQ SCH ×4 (07:56→21:24)
[2018-06-07] MEDS: GABAPENTIN 100 MG CAP PO SCH ×2 (09:00→21:28)
[2018-06-07] MEDS: FUROSEMIDE 20 MG TAB PO SCH (09:00)
[2018-06-07] MEDS: metFORMIN 500 MG TAB PO SCH ×2 (09:01→21:28)
[2018-06-07] MEDS: POTASSIUM CHLORIDE ER 10 MEQ TAB.ER.PRT PO SCH ×2 (09:01→21:27)
[2018-06-07] MEDS: VANCOMYCIN 1,000 MG in SODIUM CHLORIDE 0.9% 250 ML IVPB SCH (09:03)
[2018-06-07 09:34] LABS: Anisocytosis Slight; HCT 28.2 % (34.0-46.0); HGB 7.6 gm/dL (11.4-16.0); Hypochromasia Marked; MCH 23.3 pg (25.0-35.0); MCHC 27.1 g/dL (31.0-37.0); MCV 86.2 fL (80.0-100.0); Platelet Count 588 k/uL (150-450); RBC 3.27 m/uL (3.80-5.40); RDW 17.8 % (11.5-15.5); WBC 49.4 k/uL (3.8-10.6)
[2018-06-07] MEDS: HYDROcodone/APAP 7.5-325MG 1 EACH TAB PO PRN ×2 (09:37→19:07)
[2018-06-07 09:54] LABS: Albumin 2.3 g/dL (3.5-5.0); Calcium 10.3 mg/dL (8.4-10.2); Potassium 4.3 mmol/L (3.5-5.1); Total Bilirubin 0.4 mg/dL (0.2-1.3); Total Protein 4.9 g/dL (6.3-8.2)
[2018-06-07 11:44] LABS: Glucose,Whole Blood 357 mg/dL (75-99)
[2018-06-07 11:55] LABS: Immunoglobulin M <16.9 mg/dL (40.0-280.0)
--- NOTE | 2018-06-07 12:05 | P.PN ---
Subjective Patient resting in bed complains of generalized pain. Awaiting results from retroperitoneal mass biopsy. There is family discussion about going to [facility]. Echo ordered to confirm congestive heart failure. Patient is becoming increasingly confused noted recent MRI no masses noted Objective - Vital Signs Vital signs: Vital Signs Temp 97.6 F 06/07/18 05:20 Pulse 71 06/07/18 05:20 Resp 16 06/07/18 10:20 BP 94/54 06/07/18 05:20 Pulse Ox 92 L 06/07/18 05:20 Intake & Output 06/06/18 06/07/18 06/07/18 18:59 06:59 18:59 Intake Total 5020 Balance 5020 Weight 66.5 kg Intake: IV 700 Piperacillin-Tazobactam 3 100 .375 gm In Sodium Chloride 0.9% 100 ml @ 25 mls/hr IVPB Q8H [facility] Rx#: [id number] Sodium Chloride 0.9% 1, 600 000 ml @ 50 mls/hr IV . Q20H [facility] Rx#:[id number] Oral 4320 Other: Voiding Method Incontinent Toilet Toilet Bedside Commode # Voids 3 1 - Constitutional General appearance: Present: mild distress - EENT Eyes: Present: PERRLA Ears: bilateral: normal - Neck Neck: Present: normal ROM - Respiratory Respiratory: bilateral: CTA - Cardiovascular Rhythm: regular - Integumentary Integumentary: Present: normal - Neurologic Neurologic: Present: CNII-XII intact - Musculoskeletal Musculoskeletal: Present: generalized weakness - Psychiatric Psychiatric Comment(s): Patient having difficulty with short-term memory increased confusion noted Psychiatric: Present: appropriate affect - Labs CBC & Chem 7: 06/07/18 08:56 06/07/18 08:56 Labs: Abnormal Lab Results - Last 24 Hours (Table) 06/06/18 06/06/18 06/06/18 Range/Units 13:05 13:15 13:15 WBC 33.4 H (3.8-10.6) k/uL RBC 3.43 L (3.80-5.40) m/uL Hgb 8.0 L (11.4-16.0) gm/dL Hct 29.0 L (34.0-46.0) % MCH 23.2 L (25.0-35.0) pg MCHC 27.4 L (31.0-37.0) g/dL RDW 16.5 H (11.5-15.5) % Plt Count 550 H (150-450) k/uL Neutrophils # 32.2 H (1.3-7.7) k/uL Lymphocytes # 0.3 L (1.0-4.8) k/uL Carbon Dioxide (22-30) mmol/L BUN (7-17) mg/dL Glucose (74-99) mg/dL POC Glucose (mg/dL) 207 H (75-99) mg/dL Calcium (8.4-10.2) mg/dL Alkaline Phosphatase (38-126) U/L Total Protein (6.3-8.2) g/dL Albumin (3.5-5.0) g/dL IgG 665.0 L (700.0-1600.0) mg/dL IgM <16.9 L (40.0-280.0) mg/dL 06/06/18 06/06/18 06/06/18 Range/Units 16:45 20:28 23:13 WBC (3.8-10.6) k/uL RBC (3.80-5.40) m/uL Hgb (11.4-16.0) gm/dL Hct (34.0-46.0) % MCH (25.0-35.0) pg MCHC (31.0-37.0) g/dL RDW (11.5-15.5) % Plt Count (150-450) k/uL Neutrophils # (1.3-7.7) k/uL Lymphocytes # (1.0-4.8) k/uL Carbon Dioxide (22-30) mmol/L BUN (7-17) mg/dL Glucose (74-99) mg/dL POC Glucose (mg/dL) 272 H 317 H 367 H (75-99) mg/dL Calcium (8.4-10.2) mg/dL Alkaline Phosphatase (38-126) U/L Total Protein (6.3-8.2) g/dL Albumin (3.5-5.0) g/dL IgG (700.0-1600.0) mg/dL IgM (40.0-280.0) mg/dL 06/07/18 06/07/18 06/07/18 Range/Units 06:56 08:56 08:56 WBC 49.4 H (3.8-10.6) k/uL RBC 3.27 L (3.80-5.40) m/uL Hgb 7.6 L (11.4-16.0) gm/dL Hct 28.2 L (34.0-46.0) % MCH 23.3 L (25.0-35.0) pg MCHC 27.1 L (31.0-37.0) g/dL RDW 17.8 H (11.5-15.5) % Plt Count 588 H (150-450) k/uL Neutrophils # (1.3-7.7) k/uL Lymphocytes # (1.0-4.8) k/uL Carbon Dioxide 19 L (22-30) mmol/L BUN 24 H (7-17) mg/dL Glucose 387 H (74-99) mg/dL POC Glucose (mg/dL) 396 H (75-99) mg/dL Calcium 10.3 H (8.4-10.2) mg/dL Alkaline Phosphatase 492 H (38-126) U/L Total Protein 4.9 L (6.3-8.2) g/dL Albumin 2.3 L (3.5-5.0) g/dL IgG (700.0-1600.0) mg/dL IgM (40.0-280.0) mg/dL 06/07/18 Range/Units 11:43 WBC (3.8-10.6) k/uL RBC (3.80-5.40) m/uL Hgb (11.4-16.0) gm/dL Hct (34.0-46.0) % MCH (25.0-35.0) pg MCHC (31.0-37.0) g/dL RDW (11.5-15.5) % Plt Count (150-450) k/uL Neutrophils # (1.3-7.7) k/uL Lymphocytes # (1.0-4.8) k/uL Carbon Dioxide (22-30) mmol/L BUN (7-17) mg/dL Glucose (74-99) mg/dL POC Glucose (mg/dL) 357 H (75-99) mg/dL Calcium (8.4-10.2) mg/dL Alkaline Phosphatase (38-126) U/L Total Protein (6.3-8.2) g/dL Albumin (3.5-5.0) g/dL IgG (700.0-1600.0) mg/dL IgM (40.0-280.0) mg/dL Microbiology - Last 24 Hours (Table) 06/04/18 18:00 Blood Culture - Preliminary Blood No Growth after 48 hours Assessment and Plan Plan: Assessment Fever undetermined origin Leukocytosis Normocytic anemia retroperitoneal mass post biopsy B-cell non-Hodgkin's lymphoma stage IV Sepsis pneumonia Hypertension Hyperlipidemia Hypothyroidism Sleep apnea uses CPAP Pleural effusions Congestive heart failure per chest x-ray echo ordered for clarification ejection fraction normal 12/01/2017 Fatigue and weakness Metabolic encephalopathy Plan Continue consultation with oncology and pulmonology End plan transferred to rehab in [place]
[2018-06-07] MEDS: SODIUM CHLORIDE 0.9% 1,000 ML IV SCH (12:26)
[2018-06-07] MEDS: MULTIVITAMINS, THERA 1 EACH TAB PO SCH (12:36)
[2018-06-07 12:45] LABS: Lymphocytes # (M) 0.49 k/uL (1.0-4.8); Monocytes # (M) 1.48 k/uL (0-1.0); Neutrophils # (M) 47.42 k/uL (1.3-7.7); Neutrophils % (M) 96 %; Nucleated Red Blood Cells 0 /100 WBC (0-0); Total Cells Counted 100
[2018-06-07 12:47] LABS: Target Cells Present
--- NOTE | 2018-06-07 15:33 | P.PN ---
Subjective Progress Note Date: 06/07/18 Principal diagnosis: Fever Status Post RP biopsy, no acute complaints. Afebrile greater than 24 hours. Objective - Vital Signs Vital signs: Vital Signs Temp 98.3 F 06/07/18 12:21 Pulse 84 06/07/18 12:21 Resp 16 06/07/18 12:21 BP 119/74 06/07/18 12:21 Pulse Ox 94 L 06/07/18 12:21 Intake & Output 06/06/18 06/07/18 06/07/18 18:59 06:59 18:59 Intake Total 5020 4190 Balance 5020 4190 Weight 66.5 kg Intake: IV 700 Piperacillin-Tazobactam 3 100 .375 gm In Sodium Chloride 0.9% 100 ml @ 25 mls/hr IVPB Q8H [facility] Rx#: [id number] Sodium Chloride 0.9% 1, 600 000 ml @ 50 mls/hr IV . Q20H [facility] Rx#:[id number] Intake, IV Titration 950 Amount Piperacillin-Tazobactam 3 100 .375 gm In Sodium Chloride 0.9% 100 ml @ 25 mls/hr IVPB Q8H [facility] Rx#: [id number] Sodium Chloride 0.9% 1, 600 000 ml @ 50 mls/hr IV . Q20H [facility] Rx#:[id number] Vancomycin 1,000 mg In 250 Sodium Chloride 0.9% 250 ml @ 125 mls/hr IVPB Q24HR [facility] Rx#:[id number] Oral 4320 3240 Other: Voiding Method Incontinent Toilet Toilet Bedside Commode # Voids 3 1 3 - Exam Gen: Alert and Oriented, NAD Head: NC, NT Neck: Supple Mouth: Dry no lesions Lungs: Diminished bibasilar, no increased effort noted Heart RRR, S1 Abdomen S/ND/NT Ext: BLE 1+ Edema Neuro: No sensory or motor Deficits. - Labs CBC & Chem 7: 06/07/18 08:56 06/07/18 08:56 Labs: Abnormal Lab Results - Last 24 Hours (Table) 06/06/18 06/06/18 06/06/18 Range/Units 13:15 16:45 20:28 WBC (3.8-10.6) k/uL RBC (3.80-5.40) m/uL Hgb (11.4-16.0) gm/dL Hct (34.0-46.0) % MCH (25.0-35.0) pg MCHC (31.0-37.0) g/dL RDW (11.5-15.5) % Plt Count (150-450) k/uL Neutrophils # (Manual) (1.3-7.7) k/uL Lymphocytes # (Manual) (1.0-4.8) k/uL Monocytes # (Manual) (0-1.0) k/uL Carbon Dioxide (22-30) mmol/L BUN (7-17) mg/dL Glucose (74-99) mg/dL POC Glucose (mg/dL) 272 H 317 H (75-99) mg/dL Calcium (8.4-10.2) mg/dL Alkaline Phosphatase (38-126) U/L Total Protein (6.3-8.2) g/dL Albumin (3.5-5.0) g/dL IgG 665.0 L (700.0-1600.0) mg/dL IgM <16.9 L (40.0-280.0) mg/dL 06/06/18 06/07/18 06/07/18 Range/Units 23:13 06:56 08:56 WBC 49.4 H (3.8-10.6) k/uL RBC 3.27 L (3.80-5.40) m/uL Hgb 7.6 L (11.4-16.0) gm/dL Hct 28.2 L (34.0-46.0) % MCH 23.3 L (25.0-35.0) pg MCHC 27.1 L (31.0-37.0) g/dL RDW 17.8 H (11.5-15.5) % Plt Count 588 H (150-450) k/uL Neutrophils # (Manual) 47.42 H (1.3-7.7) k/uL Lymphocytes # (Manual) 0.49 L (1.0-4.8) k/uL Monocytes # (Manual) 1.48 H (0-1.0) k/uL Carbon Dioxide (22-30) mmol/L BUN (7-17) mg/dL Glucose (74-99) mg/dL POC Glucose (mg/dL) 367 H 396 H (75-99) mg/dL Calcium (8.4-10.2) mg/dL Alkaline Phosphatase (38-126) U/L Total Protein (6.3-8.2) g/dL Albumin (3.5-5.0) g/dL IgG (700.0-1600.0) mg/dL IgM (40.0-280.0) mg/dL 06/07/18 06/07/18 Range/Units 08:56 11:43 WBC (3.8-10.6) k/uL RBC (3.80-5.40) m/uL Hgb (11.4-16.0) gm/dL Hct (34.0-46.0) % MCH (25.0-35.0) pg MCHC (31.0-37.0) g/dL RDW (11.5-15.5) % Plt Count (150-450) k/uL Neutrophils # (Manual) (1.3-7.7) k/uL Lymphocytes # (Manual) (1.0-4.8) k/uL Monocytes # (Manual) (0-1.0) k/uL Carbon Dioxide 19 L (22-30) mmol/L BUN 24 H (7-17) mg/dL Glucose 387 H (74-99) mg/dL POC Glucose (mg/dL) 357 H (75-99) mg/dL Calcium 10.3 H (8.4-10.2) mg/dL Alkaline Phosphatase 492 H (38-126) U/L Total Protein 4.9 L (6.3-8.2) g/dL Albumin 2.3 L (3.5-5.0) g/dL IgG (700.0-1600.0) mg/dL IgM (40.0-280.0) mg/dL Microbiology - Last 24 Hours (Table) 06/04/18 18:00 Blood Culture - Preliminary Blood No Growth after 48 hours Assessment and Plan Plan: Fevers: - Unknown Etiology, potential tumor fever although T-max in 24 hours 100.4, this is improved - Thornton cultures ordered - Chest Xray Negative - Zosyn Leukocytosis: worsening, primarily neutrophils, although no known or obvious infectious cause. - Work-up for infectious process with fever, could be related to malignancy - Baseline 1115 - Primarily neutrophils - Worsening today - 49- Likely related to stress dose steroids received on [place] - Await tomorrow WBC with diff - Blood Cultures negative at 48 hours - Urine Culture Negative - Will repeat Tumor Lysis labs todays checking phos and mag as well. NHL: - Most recently status post treatment with Hycela and bendamustine, status Post Cycle 2 03/06/18 - Prior to above status post treatment with R-Ceop - Highly suspicious for progrssion: CT C/A/P reviewed and discussed with patient, definite progression cannot be ruled out. - Status Post EGD for concern of penetrative lymphoma to Gastric/Esophageal wall - Path did not identify evidence of malignancy - Retroperitoneal Biopsy06/06/18 Anorexia and weight loss: - Megace recently ordered Persisitent Nausea and Abdominal Pain: - GI Work-up and CT Scans Reviewed from previous admission Normocytic Anemia: Secondary to chemo and lymphoma - CBC and CMP in am - Hemoglobin Decreased 8 - Initial drop 12-8.8. No active bleeding noted, likely from dilution - Will order anemia work-up Myopathy and Debility: - Rec PT/OT wwork with Patient Hypercalcemia: - Uric Acid 4.2, Check Phos - Continue IVF, - Secondary to dehydration malignancy, monitor for tumor lysis - CMP in am Physcian Attest: I have completed the full history and physical and developed the complete impression and plan, agree with above, dictated as a scribe
[2018-06-07 16:06] LABS: Magnesium 1.2 mg/dL (1.6-2.3); Uric Acid 4.6 mg/dL (3.7-7.4)
[2018-06-07 16:43] LABS: Glucose,Whole Blood 238 mg/dL (75-99)
--- NOTE | 2018-06-07 19:26 | ECHOF ---
Referral Reason:chf per chest xray MEASUREMENTS -------- HEIGHT: 157.5 cm WEIGHT: 66.2 kg BP: 111/68 RVIDd: 1.8 cm (< 3.3) IVSd: 0.7 cm (0.6 - 1.1) LVIDd: 5.9 cm (3.9 - 5.3) LVPWd: 1.1 cm (0.6 - 1.1) IVSs: 0.9 cm LVIDs: 5.4 cm LVPWs: 1.5 cm LA Diam: 4.0 cm (2.7 - 3.8) LAESV Index (A-L): 36.28 ml/m Ao Diam: 3.1 cm (2.0 - 3.7) AV Cusp: 1.5 cm (1.5 - 2.6) LA Diam: 4.0 cm (2.7 - 3.8) MV EXCURSION: 18.048 mm (> 18.000) MV EF SLOPE: 83 mm/s (70 - 150) EPSS: 2.7 cm MV E Marek: 1.01 m/s MV DecT: 129 ms MV A Marek: 0.73 m/s MV E/A Ratio: 1.39 RAP: 5.00 mmHg RVSP: 39.18 mmHg FINDINGS -------- Undetermined rhythm. This was a technically good study. The left ventricular size is normal. Left ventricular wall thickness is normal. There is severe g lobal hypokinesis of LV . Overall left ventricular systolic function is severely impaired with, an EF < 20%. The right ventricle is normal in size. The left atrium is markedly dilated. LA is severely dilated >40 ml/m2 The right atrial size is normal. The aortic valve is trileaflet, and appears structurally normal. No aortic stenosis or regurgitation. Mild mitral annular calcification present. Xjidolid-ah-sjsnqg mitral regurgitation is present. Mild tricuspid regurgitation present. There is no evidence of pulmonary hypertension. The right v entricular systolic pressure, as measured by Doppler, is 39.18mmHg. There is no pulmonic regurgitation present. The aortic root size is normal. There is no pericardial effusion. CONCLUSIONS -------- 1. The left ventricular size is normal. 2. Left ventricular wall thickness is normal. 3. There is severe global hypokinesis of LV . 4. Overall left ventricular systolic function is severely impaired with, an EF < 20%. 5. The right ventricle is normal in size. 6. The left atrium is markedly dilated. 7. LA is severely dilated >40 ml/m2 8. The right atrial size is normal. 9. The aortic valve is trileaflet, and appears structurally normal. No aortic stenosis or regurgitati on. 10. Mild mitral annular calcification present. 11. Xrfqkjac-ex-wqhyca mitral regurgitation is present. 12. Mild tricuspid regurgitation present. 13. There is no evidence of pulmonary hypertension. 14. The right ventricular systolic pressure, as measured by Doppler, is 39.18mmHg. 15. There is no pulmonic regurgitation present. 16. The aortic root size is normal. 17. There is no pericardial effusion. CODING QUALITY ANALYST: Xochitl Sharif RDCS
[2018-06-07 20:45] LABS: Glucose,Whole Blood 152 mg/dL (75-99)
[2018-06-07] MEDS: LORATADINE 10 MG TAB PO SCH (21:27)
[2018-06-07] MEDS: INSULIN DETEMIR (LEVEMIR) 100 UNIT/ML SYR SQ SCH (21:28)
[2018-06-07] MEDS: ATORVASTATIN 40 MG TAB PO SCH (21:28)
[2018-06-07] MEDS: CITALOPRAM HYDROBROMIDE 20 MG TAB PO SCH (21:28)
[2018-06-08] MEDS: ONDANSETRON 4 MG/2 ML VIAL IVP PRN ×2 (01:09→06:03)
[2018-06-08] MEDS: PIPERACILLIN-TAZOBACTAM 3.375 GM in SODIUM CHLORIDE 0.9% 100 ML IVPB SCH ×3 (03:38→18:34)
[2018-06-08] MEDS: LEVOTHYROXINE 125 MCG TAB PO SCH (05:50)
[2018-06-08 07:02] LABS: Glucose,Whole Blood 55 mg/dL (75-99)
[2018-06-08 07:20] LABS: Glucose,Whole Blood 53 mg/dL (75-99)
[2018-06-08] MEDS: INSULIN ASPART (NovoLOG) 100 UNIT/ML VIAL SQ SCH ×4 (07:29→20:31)
[2018-06-08] MEDS: PANTOPRAZOLE 40 MG TABLET PO SCH (07:31)
[2018-06-08 07:39] LABS: Glucose,Whole Blood 57 mg/dL (75-99)
[2018-06-08 08:05] LABS: Glucose,Whole Blood 62 mg/dL (75-99)
[2018-06-08 08:49] LABS: Glucose,Whole Blood 110 mg/dL (75-99)
[2018-06-08] MEDS: VANCOMYCIN 1,000 MG in SODIUM CHLORIDE 0.9% 250 ML IVPB SCH (08:51)
[2018-06-08] MEDS: metFORMIN 500 MG TAB PO SCH ×2 (10:01→20:32)
[2018-06-08] MEDS: FUROSEMIDE 20 MG TAB PO SCH (10:01)
[2018-06-08] MEDS: GABAPENTIN 100 MG CAP PO SCH (10:01)
[2018-06-08] MEDS: POTASSIUM CHLORIDE ER 10 MEQ TAB.ER.PRT PO SCH (10:01)
[2018-06-08] MEDS: HYDROcodone/APAP 7.5-325MG 1 EACH TAB PO PRN (10:24)
[2018-06-08 10:59] LABS: Glucose,Whole Blood 105 mg/dL (75-99)
[2018-06-08] MEDS ORDERED: MORPHINE SULFATE ER 30 MG TABLET PO SCH (11:00)
[2018-06-08] MEDS: PANTOPRAZOLE 40 MG/10 ML VIAL IVP SCH ×2 (11:30→21:14)
[2018-06-08] MEDS: MULTIVITAMINS, THERA 1 EACH TAB PO SCH (12:57)
[2018-06-08 13:05] LABS: ALT 31 U/L (9-52); AST 26 U/L (14-36); Albumin 2.5 g/dL (3.5-5.0); Alkaline Phosphatase 609 U/L (38-126); Anion Gap 12 mmol/L; Blood Urea Nitrogen 18 mg/dL (7-17); Calcium 10.8 mg/dL (8.4-10.2); Carbon Dioxide 21 mmol/L (22-30); Chloride 106 mmol/L (98-107); Glucose 72 mg/dL (74-99); Potassium 3.9 mmol/L (3.5-5.1); Sodium 139 mmol/L (137-145); Total Bilirubin 0.4 mg/dL (0.2-1.3); Total Protein 5.2 g/dL (6.3-8.2)
--- NOTE | 2018-06-08 14:55 | P.PN ---
Subjective Progress Note Date: 06/08/18 Principal diagnosis: Fever Afebrile greater than 24 hours, aPath Pending from biopsy. Hemoglobin 7.2 yesterday, redraw now as may benefit from PRBC transfusion prior to discharge if plan to discharge 24-48 hours. Objective - Vital Signs Vital signs: Vital Signs Temp 99.5 F 06/08/18 11:23 Pulse 60 06/08/18 11:23 Resp 16 06/08/18 13:36 BP 129/77 06/08/18 11:23 Pulse Ox 96 06/08/18 11:23 Intake & Output 06/07/18 06/08/18 06/08/18 18:59 06:59 18:59 Intake Total 4670 240 Balance 4670 240 Weight 66.5 kg Intake: Intake, IV Titration 950 Amount Piperacillin-Tazobactam 3 100 .375 gm In Sodium Chloride 0.9% 100 ml @ 25 mls/hr IVPB Q8H [facility] Rx#: [id number] Sodium Chloride 0.9% 1, 600 000 ml @ 50 mls/hr IV . Q20H [facility] Rx#:[id number] Vancomycin 1,000 mg In 250 Sodium Chloride 0.9% 250 ml @ 125 mls/hr IVPB Q24HR [facility] Rx#:[id number] Oral 3720 240 Other: Voiding Method Toilet Toilet Toilet # Voids 3 2 3 # Bowel Movements 1 2 - Exam Gen: Alert and Oriented, NAD Head: NC, NT Neck: Supple Mouth: Dry no lesions Lungs: Diminished bibasilar, no increased effort noted Heart RRR, S1 Abdomen S/ND/NT Ext: BLE 1+ Edema Neuro: No sensory or motor Deficits. - Labs CBC & Chem 7: 06/07/18 08:56 06/08/18 12:28 Labs: Abnormal Lab Results - Last 24 Hours (Table) 06/07/18 06/07/18 06/07/18 Range/Units 08:56 08:56 16:42 Carbon Dioxide (22-30) mmol/L BUN (7-17) mg/dL Glucose (74-99) mg/dL POC Glucose (mg/dL) 238 H (75-99) mg/dL Calcium (8.4-10.2) mg/dL Magnesium 1.2 L (1.6-2.3) mg/dL Alkaline Phosphatase (38-126) U/L Lactate Dehydrogenase 252 L (313-618) U/L Total Protein (6.3-8.2) g/dL Albumin (3.5-5.0) g/dL Vitamin B12 1305.0 H (200.0-944.0) pg/mL 06/07/18 06/08/18 06/08/18 Range/Units 20:42 07:00 07:19 Carbon Dioxide (22-30) mmol/L BUN (7-17) mg/dL Glucose (74-99) mg/dL POC Glucose (mg/dL) 152 H 55 L 53 L (75-99) mg/dL Calcium (8.4-10.2) mg/dL Magnesium (1.6-2.3) mg/dL Alkaline Phosphatase (38-126) U/L Lactate Dehydrogenase (313-618) U/L Total Protein (6.3-8.2) g/dL Albumin (3.5-5.0) g/dL Vitamin B12 (200.0-944.0) pg/mL 06/08/18 06/08/18 06/08/18 Range/Units 07:38 08:04 08:48 Carbon Dioxide (22-30) mmol/L BUN (7-17) mg/dL Glucose (74-99) mg/dL POC Glucose (mg/dL) 57 L 62 L 110 H (75-99) mg/dL Calcium (8.4-10.2) mg/dL Magnesium (1.6-2.3) mg/dL Alkaline Phosphatase (38-126) U/L Lactate Dehydrogenase (313-618) U/L Total Protein (6.3-8.2) g/dL Albumin (3.5-5.0) g/dL Vitamin B12 (200.0-944.0) pg/mL 06/08/18 06/08/18 Range/Units 10:58 12:28 Carbon Dioxide 21 L (22-30) mmol/L BUN 18 H (7-17) mg/dL Glucose 72 L (74-99) mg/dL POC Glucose (mg/dL) 105 H (75-99) mg/dL Calcium 10.8 H (8.4-10.2) mg/dL Magnesium (1.6-2.3) mg/dL Alkaline Phosphatase 609 H (38-126) U/L Lactate Dehydrogenase (313-618) U/L Total Protein 5.2 L (6.3-8.2) g/dL Albumin 2.5 L (3.5-5.0) g/dL Vitamin B12 (200.0-944.0) pg/mL Microbiology - Last 24 Hours (Table) 06/04/18 18:00 Blood Culture - Preliminary Blood No Growth after 72 hours 06/06/18 15:37 Blood Culture - Preliminary Blood No Growth after 24 hours Assessment and Plan Plan: Fevers: - Unknown Etiology, potential tumor fever - no active identified infction at this time, afebrile greater than 24 hours - Thornton cultures ordered - Chest Xray Negative - Zosyn Leukocytosis: Likely reactive - Work-up for infectious process with fever, could be related to malignancy - Baseline 11-15 - Primarily neutrophils - Worsening Likely related to stress dose steroids received on admission - Await tomorrow WBC with diff - Blood Cultures negative at 48 hours - Urine Culture Negative NHL: - Most recently status post treatment with Hycela and bendamustine, status Post Cycle 2 03/06/18 - Prior to above status post treatment with R-Ceop - Highly suspicious for progrssion: CT C/A/P reviewed and discussed with patient, definite progression cannot be ruled out. - Status Post EGD for concern of penetrative lymphoma to Gastric/Esophageal wall - Path did not identify evidence of malignancy - Retroperitoneal Biopsy today 06/06/18 Anorexia and weight loss: - Megace recently ordered Persisitent Nausea and Abdominal Pain: - GI Work-up and CT Scans Reviewed from previous admission Normocytic Anemia: Secondary to chemo and lymphoma - CBC and CMP in am - Hemoglobin Decreased 7.2 - Initial drop 12-8.8. No active bleeding noted, likely from dilution - Will order anemia work-up - CBC today and transfuse if less than 7 Myopathy and Debility: - Rec PT/OT wwork with Patient Hypercalcemia: - Uric Acid 4.2, Check Phos - Continue IVF, - Secondary to dehydration malignancy, monitor for tumor lysis - CMP in am Physcian Attest: I have completed the full history and physical and developed the complete impression and plan, agree with above, dictated as a scribe
[2018-06-08] MEDS: SODIUM CHLORIDE 0.9% 1,000 ML IV SCH ×2 (15:41→21:13)
[2018-06-08 16:46] LABS: Anisocytosis Slight; Basophils % (A) 0 %; Eosinophils # (A) 0.1 k/uL (0-0.7); Eosinophils % (A) 0 %; HCT 27.2 % (34.0-46.0); HGB 7.6 gm/dL (11.4-16.0); Hypochromasia Marked; Lymphocytes # (A) 0.3 k/uL (1.0-4.8); Lymphocytes % (A) 1 %; MCH 23.4 pg (25.0-35.0); MCV 83.7 fL (80.0-100.0); Mean Platelet Volume 7.8; Monocytes # (A) 1.3 k/uL (0-1.0); Monocytes % (A) 4 %; Neutrophils # (A) 30.1 k/uL (1.3-7.7); Neutrophils % (A) 94 %; Platelet Count 502 k/uL (150-450); RBC 3.25 m/uL (3.80-5.40); RDW 17.6 % (11.5-15.5); WBC 32.1 k/uL (3.8-10.6)
[2018-06-08 17:12] LABS: Glucose,Whole Blood 57 mg/dL (75-99)
[2018-06-08 17:37] LABS: Glucose,Whole Blood 59 mg/dL (75-99)
[2018-06-08 17:57] LABS: Glucose,Whole Blood 51 mg/dL (75-99)
[2018-06-08] MEDS ORDERED: DEXTROSE 5% IN WATER 1,000 ML IV ONE (18:00)
[2018-06-08] MEDS ORDERED: Magnesium Replacement Protocol 1 EACH MISC MISCELLANE PRN (18:17)
[2018-06-08 18:26] LABS: Glucose,Whole Blood 57 mg/dL (75-99)
[2018-06-08 19:07] LABS: Glucose,Whole Blood 73 mg/dL (75-99)
[2018-06-08 19:58] LABS: Glucose,Whole Blood 117 mg/dL (75-99)
[2018-06-08] MEDS: INSULIN DETEMIR (LEVEMIR) 100 UNIT/ML SYR SQ SCH (20:31)
--- NOTE | 2018-06-08 20:35 | PN ---
PROGRESS NOTE DATE OF SERVICE: 06/08/2008 I am covering for Dr. Solano. HISTORY OF PRESENT ILLNESS: This 67-year-old woman with a past medical history of multiple medical problems including retroperitoneal tumor, being evaluated for possibly B-cell non-Hodgkin lymphoma, stage IV, also had some fever of undetermined origin. The patient complaining of severe back pain at this time. Hematology and oncology following the patient closely. Originally the patient is slated to go to the [facility], but the patient reports a 10/10 pain in the back and patient unable to move and the patient retroperitoneal mass has been biopsied at this time. PAST MEDICAL HISTORY: Reviewed. REVIEW OF SYSTEMS: CARDIOVASCULAR: No angina or palpitations. RESPIRATION: As mentioned earlier. GASTROINTESTINAL: As mentioned earlier. : No dysuria or retention. CENTRAL NERVOUS SYSTEM: As mentioned earlier. MEDICATIONS: Reviewed and include: 1. Tylenol 650 q.4 p.r.n. 2. Xanax 0.25 daily. 3. [place]. 4. Lipitor 40 mg. 5. Celexa. 6. Lasix 20 mg. 7. Levemir 20 units subcu q.h.s. 8. Synthroid. 9. Glucophage. 10.Multivitamins. 11.Narcan. 12.Zofran. 13.Protonix. 14.Zosyn. 15.Vancomycin. PHYSICAL EXAM: Patient is alert, oriented x3. Pulse is 97, blood pressure 106/69, respirations 16, temperature 98.2, pulse ox 94% on room air. The patient is in agony at this time because of pain. HEENT: Conjunctivae normal. Oral mucosa moist. NECK is no jugular venous distention. No carotid bruit. No lymph node enlargement. CARDIOVASCULAR: S1-S2 muffled. RESPIRATIONS: Breath sounds diminished in the bases. A few scattered rhonchi and crackles. ABDOMEN: Soft, nontender. No mass. Legs are no edema, no swelling. Nervous system: Diffusely weak. LAB STUDIES: WBC 32.2, hemoglobin 7.6, magnesium is 1.1, glucose noted low. ASSESSMENT: 1. Severe back pain. with significant distress and as well as gait dysfunction. 2. Non-Hodgkin's lymphoma stage IV. 3. History of recent retroperitoneal mass and biopsy. 4. Fever of undetermined origin. 5. Leukocytosis. 6. Possible sepsis pneumonia. 7. Increased WBC. 8. Anemia, normocytic. 9. Hypoglycemia. 10.Hypomagnesemia. 11.Increased alkaline phosphatase. 12.Gait dysfunction. 13.Severe pain. 14.History of congestive heart failure. 15.Diabetes mellitus. 16.Hypertension. 17.Hyperlipidemia. 18.History of closed-head injury. 19.Hypothyroidism. 20.History of anxiety. RECOMMENDATIONS AND DISCUSSION: In this 67-year-old woman who presented with multiple complex medical issues. We will monitor the patient closely. Continue the current medications, management and symptomatic treatment. I would adjust the pain medications. I would recommend morphine sulfate because of lack of improvement of pain and because of multiple complex medical issues including oncological issues. I would also recommend DVT prophylaxis and I would also recommend to cut down the insulin because of the hypoglycemia experienced by the patient. Encourage p.o. food. PT/OT evaluation. Once the pain is subsided, we will consider the possibility of ECF rehab at this time. Otherwise, continue to monitor. Guarded prognosis. Further recommendations to follow. See orders for further details. MMODL / IJN: [id number] /
[2018-06-08 21:11] LABS: Glucose,Whole Blood 148 mg/dL (75-99)
[2018-06-08] MEDS: MORPHINE SULFATE ER 15 MG TABLET PO SCH (21:14)
[2018-06-08] MEDS: MAGNESIUM SULFATE-D5W PMX 1 GM in DEXTROSE/WATER 1 100ML.BAG IVPB SCH ×3 (21:14→23:19)
[2018-06-08] MEDS: HEPARIN SODIUM,PORCINE 5,000 UNIT/ML 1 ML VIAL SQ SCH (21:14)
[2018-06-08] MEDS: CITALOPRAM HYDROBROMIDE 20 MG TAB PO SCH (21:15)
[2018-06-08] MEDS: ATORVASTATIN 40 MG TAB PO SCH (21:15)
[2018-06-08] MEDS: ALPRAZolam 0.25 MG TAB PO PRN (23:24)
[2018-06-08 23:28] LABS: Glucose,Whole Blood 199 mg/dL (75-99)
[2018-06-08] MEDS: KETOROLAC 30 MG/ML 1 ML VIAL IVP PRN (23:28)
[2018-06-09] MEDS: PIPERACILLIN-TAZOBACTAM 3.375 GM in SODIUM CHLORIDE 0.9% 100 ML IVPB SCH ×3 (02:00→18:08)
[2018-06-09] MEDS: LEVOTHYROXINE 125 MCG TAB PO SCH (06:00)
[2018-06-09 07:13] LABS: Glucose,Whole Blood 341 mg/dL (75-99)
[2018-06-09] MEDS: INSULIN ASPART (NovoLOG) 100 UNIT/ML VIAL SQ SCH ×4 (08:05→20:49)
[2018-06-09] MEDS: PANTOPRAZOLE 40 MG/10 ML VIAL IVP SCH ×2 (08:05→21:00)
[2018-06-09] MEDS: VANCOMYCIN 1,000 MG in SODIUM CHLORIDE 0.9% 250 ML IVPB SCH (08:06)
[2018-06-09 08:41] LABS: Anisocytosis Slight; Basophils % (A) 0 %; Eosinophils # (A) 0.3 k/uL (0-0.7); Eosinophils % (A) 1 %; HCT 26.6 % (34.0-46.0); HGB 7.3 gm/dL (11.4-16.0); Hypochromasia Marked; Lymphocytes # (A) 0.2 k/uL (1.0-4.8); Lymphocytes % (A) 1 %; MCHC 27.5 g/dL (31.0-37.0); MCV 83.8 fL (80.0-100.0); Mean Platelet Volume 7.7; Monocytes # (A) 0.9 k/uL (0-1.0); Monocytes % (A) 3 %; Neutrophils % (A) 95 %; Platelet Count 507 k/uL (150-450); RBC 3.18 m/uL (3.80-5.40); RDW 17.8 % (11.5-15.5); WBC 34.8 k/uL (3.8-10.6)
[2018-06-09 08:48] LABS: Calcium 10.2 mg/dL (8.4-10.2); Magnesium 1.8 mg/dL (1.6-2.3); Potassium 4.5 mmol/L (3.5-5.1)
--- NOTE | 2018-06-09 11:17 | P.CRDCN ---
History of Present Illness History of present illness: This is a pleasant 67-year-old female past medical history significant for B-cell non-Hodgkin's lymphoma stage IV, diabetes mellitus, hypertension, dyslipidemia, obstructive sleep apnea and hypothyroidism. She denies history of coronary artery disease and does not follow with a peach grower for any reason. She is currently in the hospital with symptoms of altered mental status, generalized weakness and leukocytosis. She underwent treatment with Hycela and bendamustine last cycle was 03/06/2018. Prior to that in November 2017 she had an echocardiogram that reveals a preserved LV systolic function. Repeat echocardiogram on this admission reveals severe hypo-kinesia globally with an ejection fraction of 20%. She is seen and examined resting comfortably in bed in no acute distress laying essentially flat. She states she came to the hospital because she has been feeling so weak and fatigued at home she cannot perform her activities of daily living. She also describes feeling increasingly fatigued with some shortness of breath over the previous 2 months. She states at baseline she had no shortness of breath however she now wakes up frequently at night short of breath and can no longer. Clinically the stairs without stopping for air. She denies any symptoms of chest discomfort, dizziness or palpitations. Oncology is following and is suspect progression of her non- Hodgkin's lymphoma. Initially on admission it was thought that she had pneumonia and was started on antibiotics. She has been seen in consultation by pulmonary team as well and they believe that her fever is related to progression of underlying malignancy. EKG on arrival reveals sinus mechanism with frequent PVCs noted and poor R-wave progression. Chest x-ray reveals congestive heart failure with pleural effusions. This was obtained on June 04. Laboratory data reviewed, WBC 34.8, hemoglobin 7.3, platelets 507, sodium 136, potassium 4.5, creatinine 0.82, magnesium 1.8, NT proBNP on admission 4720. Current cardiac medications include Lasix 20 mg daily and atorvastatin 40 mg daily. At the time of my exam: CONSTITUTIONAL: Denies fever. Denies chills. EYES: Denies blurred vision. Denies vision changes. Denies eye pain. EARS, NOSE, MOUTH & THROAT: Denies headache. Denies sore throat. Denies ear pain. CARDIOVASCULAR: Denies chest pain. Denies shortness of breath. Denies orthopnea. Denies PND. Denies palpitations. RESPIRATORY: Denies cough. GASTROINTESTINAL: Denies abdominal pain. Denies diarrhea. Denies constipation. Denies nausea. Denies vomiting. MUSCULOSKELETAL: Denies myalgias. INTEGUMENTARY: Denies pruitis. Denies rash. NEUROLOGIC: Denies numbness. Denies tingling. Denies weakness. PSYCHIATRIC: Denies anxiety. Denies depression. ENDOCRINE: Complains of fatigue. Denies weight change. Denies polydipsia. Denies polyurina. GENITOURINARY: Denies burning, hematuria or urgency with micturation. HEMATOLOGIC: Denies history of anemia. Denies bleeding. Blood pressure 112/68 heart rate 85 afebrile maintaining oxygen saturation on nasal cannula GENERAL: This is a 67-year-old female in no apparent distress at the time of my examination. HEENT: Head is atraumatic, normocephalic. Pupils are equal, round. Sclerae anicteric. Conjunctivae are clear. Mucous membranes of the mouth are moist. Neck is supple. There is no jugular venous distention. No carotid bruit is heard. LUNGS: Clear to auscultation no wheezes, rales or rhonchi. No chest wall tenderness is noted on palpation or with deep breathing. Diminished bilaterally. HEART: Regular rate and rhythm without murmurs, rubs or gallops. S1 and S2 heard. ABDOMEN: Soft, nontender. Bowel sounds are heard. No organomegaly noted. EXTREMITIES: Bilateral lower extremity nonpitting edema of the feet, no preti bial edema noted. VASCULAR: Radial and dorsalis pedis pulses palpated, no evidence of clubbing. NEUROLOGIC: Patient is awake, alert and oriented x3. ASSESSMENT New onset systolic heart failure Non-hodgkins lymphoma Leukocytosis Febrile illness Bilateral pleural effusions, chronic Hypertension Dyslipidemia Diabetes mellitus Anemia secondary to chemotherapy PLAN Repeat chest x-ray today. Maximize her medical therapy with the addition of beta blockers and GLEN inhibitor. We'll initiate a low dose today of Lopressor 12.5 mg twice a day and lisinopril 2.5 mg daily. If her blood pressure tolerates remain increased tomorrow. Continue with atorvastatin and by mouth Lasix. Further recommendations to follow based upon clinical course. Thank you kindly for this consultation. Nurse Practitioner note has been reviewed, I agree with a documented findings and plan of care. Patient was seen and examined. Past Medical History Past Medical History: Cancer, Heart Failure, Diabetes Mellitus, Hyperlipidemia, Hypertension, Sleep Apnea/CPAP/BIPAP, Thyroid Disorder Additional Past Medical History / Comment(s): B-cell non-Hodgkin's lymphoma stage IV, diabetes mellitus,daughter stated pt had first chemo mon 11-20-17 hypertension, hyperlipidemia, obstructive sleep apnea, hypothyroidism post thyroidectomy, closed head injury in 1988, difficulty with mobility and ambulation the patient has been using a walker. has a history of kidney stones Last Myocardial Infarction Date:: 1988 History of Any Multi-Drug Resistant Organisms: None Reported Past Surgical History: Cholecystectomy, Hysterectomy, Tonsillectomy Additional Past Surgical History / Comment(s): Thyroidectomy, lymph node and liver biopsies. port a cath 11-06-17, right ureteroscopy with lithotripsy 12/2014 Past Anesthesia/Blood Transfusion Reactions: Postoperative Nausea & Vomiting (PONV) Past Psychological History: Anxiety Smoking Status: Never smoker Past Alcohol Use History: None Reported Past Drug Use History: Marijuana - Past Family History Mother Family Medical History: Cancer Additional Family Medical History / Comment(s): breast CA Father Family Medical History: Cancer Additional Family Medical History / Comment(s): colon CA Sister(s) Family Medical History: Cancer Additional Family Medical History / Comment(s): Skin cancer Medications and Allergies Home Medications Medication Instructions Recorded Confirmed Type Furosemide 20 mg PO DAILY 09/19/13 06/04/18 History Gabapentin 100 mg PO QAM 09/19/13 06/04/18 History Gabapentin [Neurontin] 200 mg PO HS 12/05/14 06/04/18 History Levothyroxine Sodium [Synthroid] 125 mcg PO [id number] 12/05/14 06/04/18 History Multivitamins, Thera [Multivitamin 1 tab PO DAILY 05/24/17 06/04/18 History (formulary)] Atorvastatin Calcium [Lipitor] 40 mg PO HS 06/12/17 06/04/18 History Citalopram Hydrobromide [CeleXA] 20 mg PO HS 10/22/17 06/04/18 History metFORMIN HCL 1,000 mg PO BID #0 12/08/17 06/04/18 Rx Cetirizine HCl 10 mg PO HS 03/30/18 06/04/18 History Pantoprazole [Protonix] 40 mg PO DAILY 03/30/18 06/04/18 History Potassium Chloride ER [K-Dur 10] 10 meq PO BID 03/30/18 06/04/18 History HYDROcodone/APAP 7.5-325MG [[place] 1 tab PO Q6HR PRN 05/14/18 06/04/18 History 7.5-325] Ondansetron [Zofran] 4 mg PO Q6H PRN 05/23/18 06/04/18 History ALPRAZolam [Xanax] 0.33 mg PO DAILY PRN 06/04/18 06/04/18 History Allergies Allergy/AdvReac Type Severity Reaction Status Date / Time haloperidol [From Haldol] Allergy Unknown Verified 06/04/18 18:46 haloperidol lactate Allergy Unknown Verified 06/04/18 18:46 [From Haldol] Iodinated Contrast- Oral and Allergy Rash/Hives Verified 06/04/18 18:46 IV Dye [Iodinated Contrast Media - IV Dye] ciprofloxacin [From Cipro] AdvReac Heartburn Verified 06/04/18 18:46 steri-strips AdvReac Severe sore Uncoded 05/23/18 10:57 Physical Exam Vitals: Vital Signs Temp Pulse Resp BP BP Pulse Ox 06/09/18 09:09 99 06/09/18 05:00 98.3 F 85 17 112/68 99 06/09/18 00:00 85 18 06/08/18 21:00 98.7 F 99 16 125/64 98 06/08/18 19:08 98.3 F 102 H 16 129/70 95 06/08/18 16:07 98.3 F 97 16 102/69 94 L 06/08/18 13:36 16 06/08/18 11:23 99.5 F 60 16 129/77 96 Intake and Output 06/08/18 06/09/18 06/09/18 22:59 06:59 14:59 Intake Total 1154 200 Output Total 450 Balance 704 200 Intake: Intake, IV Titration 550 Amount Dextrose 5% in Water 1, 150 000 ml @ 75 mls/hr IV . [id number] [facility] Rx#:[id number] Magnesium Sulfate-D5w Pmx 200 1 gm In Dextrose/Water 1 100ml.bag @ 100 mls/hr IVPB Q1H [facility] Rx#: [id number] Sodium Chloride 0.9% 1, 200 000 ml @ 50 mls/hr IV . Q20H [facility] Rx#:[id number] Oral 604 200 Output: Urine 450 Other: Voiding Method Bedside Commode Diaper # Voids 2 2 # Bowel Movements 2 Weight 66.5 kg Results 06/09/18 08:09 06/09/18 08:09 Cardiac Enzymes 06/08/18 Range/Units 12:28 AST 26 (14-36) U/L CBC 06/08/18 06/09/18 Range/Units 15:46 08:09 WBC 32.1 H 34.8 H (3.8-10.6) k/uL RBC 3.25 L 3.18 L (3.80-5.40) m/uL Hgb 7.6 L 7.3 L (11.4-16.0) gm/dL Hct 27.2 L 26.6 L (34.0-46.0) % Plt Count 502 H 507 H (150-450) k/uL Comprehensive Metabolic Panel 06/08/18 06/09/18 Range/Units 12:28 08:09 Sodium 139 136 L (137-145) mmol/L Potassium 3.9 4.5 (3.5-5.1) mmol/L Chloride 106 106 (98-107) mmol/L Carbon Dioxide 21 L 23 (22-30) mmol/L BUN 18 H 16 (7-17) mg/dL Creatinine 0.73 0.82 (0.52-1.04) mg/dL Glucose 72 L 221 H (74-99) mg/dL Calcium 10.8 H 10.2 (8.4-10.2) mg/dL AST 26 (14-36) U/L ALT 31 (9-52) U/L Alkaline Phosphatase 609 H (38-126) U/L Total Protein 5.2 L (6.3-8.2) g/dL Albumin 2.5 L (3.5-5.0) g/dL Current Medications Generic Name Dose Route Start Last Admin Trade Name Freq PRN Reason Stop Dose Admin Acetaminophen 650 mg 06/05/18 00:50 Tylenol Tab PO Q4HR PRN Fever and/ or Pain Hydrocodone Bitart/Acetaminophen 1 each 06/08/18 15:09 [place] 5-325 PO Q6HR PRN Pain Alprazolam 0.25 mg 04/09/19 09:35 06/08/18 23:24 Xanax PO 0.25 mg DAILY PRN Administration Anxiety Atorvastatin Calcium 40 mg 06/05/18 21:00 06/08/18 21:15 Lipitor PO 40 mg HS [facility] Administration Citalopram Hydrobromide 20 mg 06/05/18 21:00 06/08/18 21:15 Celexa PO 20 mg HS [facility] Administration Furosemide 20 mg 06/06/18 09:00 06/08/18 10:01 Lasix PO 20 mg DAILY [facility] Administration Heparin Sodium (Porcine) 5,000 unit 06/08/18 21:00 06/08/18 21:14 Heparin SQ 5,000 unit Q12HR [facility] Administration Piperacillin Sod/Tazobactam 100 mls @ 25 mls/hr 06/05/18 03:00 06/09/18 02:00 Sod 3.375 gm/ Sodium Chloride IVPB 25 mls/hr Q8H [facility] Administration Sodium Chloride 1,000 mls @ 50 mls/hr 06/05/18 00:45 06/08/18 21:13 Saline 0.9% IV 50 mls/hr .Q20H [facility] Administration Vancomycin HCl 1,000 mg/ 250 mls @ 125 mls/hr 06/08/18 09:00 06/09/18 08:06 Sodium Chloride IVPB 125 mls/hr Q24HR [facility] Administration Insulin Aspart 0 unit 06/05/18 07:30 06/09/18 08:05 Novolog SQ 6 unit ACHS [facility] Administration Protocol Insulin Detemir 10 unit 06/08/18 21:00 06/08/18 20:31 Levemir SQ Not Given HS [facility] Ketorolac Tromethamine 15 mg 06/08/18 10:52 06/08/18 23:28 Toradol IVP 06/12/18 10:52 15 mg Q6HR PRN Administration Breakthrough Pain Levothyroxine Sodium 125 mcg 06/05/18 09:45 06/09/18 06:00 Synthroid PO 125 mcg [id number] [facility] Administration Metformin HCl 1,000 mg 06/05/18 21:00 06/08/18 20:32 Glucophage PO Not Given BID [facility] Miscellaneous Information 1 each 06/08/18 18:17 Magnesium Per Protocol MISCELLANE DAILY PRN Per Protocol Protocol Miscellaneous Information 0 each 06/10/18 08:00 Vancomycin Trough Due MISCELLANE 06/10/18 08:01 DIRECTED ONE Morphine Sulfate 15 mg 06/08/18 21:00 06/08/18 21:14 Ms Contin PO 15 mg Q12HR [facility] Administration Multivitamins 1 each 06/06/18 12:00 06/08/18 12:57 Theragran PO 1 each 1200 [facility] Administration Naloxone HCl 0.2 mg 06/04/18 21:13 Narcan IV Q2M PRN Opioid Reversal Ondansetron HCl 4 mg 06/05/18 00:49 06/08/18 06:03 Zofran IVP 4 mg Q6HR PRN Administration Nausea And Vomiting Ondansetron HCl 4 mg 06/05/18 09:35 Zofran PO Q6H PRN Nausea Pantoprazole Sodium 40 mg 06/08/18 11:00 06/09/18 08:05 Protonix IVP 40 mg BID [facility] Administration Potassium Chloride 10 meq 06/09/18 09:00 K-Dur 10 PO DAILY [facility] Intake and Output 06/08/18 06/09/18 06/09/18 22:59 06:59 14:59 Intake Total 1154 200 Output Total 450 Balance 704 200 Intake: Intake, IV Titration 550 Amount Dextrose 5% in Water 1, 150 000 ml @ 75 mls/hr IV . [id number] [facility] Rx#:[id number] Magnesium Sulfate-D5w Pmx 200 1 gm In Dextrose/Water 1 100ml.bag @ 100 mls/hr IVPB Q1H [facility] Rx#: [id number] Sodium Chloride 0.9% 1, 200 000 ml @ 50 mls/hr IV . Q20H [facility] Rx#:[id number] Oral 604 200 Output: Urine 450 Other: Voiding Method Bedside Commode Diaper # Voids 2 2 # Bowel Movements 2 Weight 66.5 kg 06/09/18 08:09 06/09/18 08:09
--- NOTE | 2018-06-09 11:48 | XR ---
EXAMINATION TYPE: XR chest 2V DATE OF EXAM: 06/09/2018 HISTORY: sob. REFERENCE: Previous study dated 06/04/2018. FINDINGS: There is a right internal jugular catheter in place. Its tip is in the superior vena cava. I do not see evidence of pneumothorax. The heart is enlarged. There is bibasilar airspace disease. There are small effusions. The overall ap pearance is worsened slightly. IMPRESSION: WORSENING BIBASILAR AIRSPACE DISEASE WITH CONCOMITANT EFFUSIONS.
[2018-06-09 11:54] LABS: Glucose,Whole Blood 173 mg/dL (75-99)
[2018-06-09] MEDS: POTASSIUM CHLORIDE ER 10 MEQ TAB.ER.PRT PO SCH (12:18)
[2018-06-09] MEDS: MULTIVITAMINS, THERA 1 EACH TAB PO SCH (12:18)
[2018-06-09] MEDS: MORPHINE SULFATE ER 15 MG TABLET PO SCH ×2 (12:18→20:58)
[2018-06-09] MEDS: metFORMIN 500 MG TAB PO SCH ×2 (12:18→21:00)
[2018-06-09] MEDS: HEPARIN SODIUM,PORCINE 5,000 UNIT/ML 1 ML VIAL SQ SCH ×2 (12:19→21:00)
[2018-06-09] MEDS: FUROSEMIDE 20 MG TAB PO SCH (12:19)
[2018-06-09] MEDS: LISINOPRIL 2.5 MG TAB PO SCH (12:23)
--- NOTE | 2018-06-09 16:47 | PN ---
PROGRESS NOTE DATE OF SERVICE: 06/09/2018 I am covering for Dr. Solano. This 67-year-old woman was admitted with severe back pain, and non-Hodgkin's lymphoma. The patient had retroperitoneal tumor biopsy. The patient is rather mildly confused at this time. A brain MRI done in December last year showed old left frontal lobe infarct. No chest pain. No palpitations. No fever. EXAM: Alert and oriented x3. The pulse is 99. Blood pressure 126/64. Respiration 18. Temperature 98 degrees, pulse ox 94% on room air. HEENT: Conjunctivae normal. NECK: No jugular venous distention. CARDIOVASCULAR: S1, S2 muffled. RESPIRATORY: Breath sounds diminished in the bases. Bilateral scattered rhonchi and crackles. Abdomen is soft, nontender. Legs are no edema. No swelling. CENTRAL NERVOUS SYSTEM: No focal deficits. LABS: WBC 34.2, hemoglobin 7.3, sodium 136. Other labs are noted. ASSESSMENT: 1. Severe back pain with significant distress as well as gait dysfunction. 2. Change in mental status acute metabolic encephalopathy multifactorial. 3. Non-Hodgkin's lymphoma Stage IV. 4. History of recent retroperitoneal mass biopsy. 5. Fever of undetermined origin. 6. Leukocytosis. 7. Possible sepsis with pneumonia, on presentation. 8. Increased WBC. 9. Anemia, normocytic. 10.Hypoglycemia. 11.Hypomagnesemia. 12.Increased . 13.Gait dysfunction. 14.Severe pain. 15.History of congestive heart failure. 16.Diabetes mellitus type 2. 17.Hypertension. 18.Hyperlipidemia. 19.History of closed-head injury. 20.Hypothyroidism. 21.History of anxiety. RECOMMENDATIONS AND DISCUSSION: Recommend to continue current medications and continue with monitoring and symptomatic treatment. Otherwise, at this time, I recommend continue with current medications. Continue with broad-spectrum IV antibiotics. Otherwise the cultures are negative so far. We will continue to monitor. Further recommendations to follow. We will monitor blood sugars closely. MMODL / IJN: [id number] / [id number]
[2018-06-09 17:01] LABS: Glucose,Whole Blood 167 mg/dL (75-99)
[2018-06-09] MEDS: METOCLOPRAMIDE 5 MG/ML 2 ML VIAL IVP SCH (18:03)
[2018-06-09 20:57] LABS: Glucose,Whole Blood 134 mg/dL (75-99)
[2018-06-09] MEDS: METOPROLOL TARTRATE 12.5 MG TAB PO SCH (20:59)
[2018-06-09] MEDS: CITALOPRAM HYDROBROMIDE 20 MG TAB PO SCH (20:59)
[2018-06-09] MEDS: ATORVASTATIN 40 MG TAB PO SCH (20:59)
[2018-06-09] MEDS: INSULIN DETEMIR (LEVEMIR) 100 UNIT/ML SYR SQ SCH (21:09)
[2018-06-10] MEDS: ALPRAZolam 0.25 MG TAB PO PRN (00:16)
[2018-06-10] MEDS: KETOROLAC 30 MG/ML 1 ML VIAL IVP PRN (00:16)
[2018-06-10] MEDS: METOCLOPRAMIDE 5 MG/ML 2 ML VIAL IVP SCH ×3 (00:18→18:07)
[2018-06-10] MEDS: HYDROcodone/APAP 5-325MG 1 EACH TAB PO PRN (01:33)
[2018-06-10] MEDS: PIPERACILLIN-TAZOBACTAM 3.375 GM in SODIUM CHLORIDE 0.9% 100 ML IVPB SCH ×3 (03:36→19:43)
[2018-06-10 07:22] LABS: Glucose,Whole Blood 215 mg/dL (75-99)
[2018-06-10] MEDS ORDERED: VANCOMYCIN TROUGH DUE 1 EACH MISC MISCELLANE ONE (08:00)
[2018-06-10 08:17] LABS: Calcium 10.3 mg/dL (8.4-10.2); Potassium 4.3 mmol/L (3.5-5.1)
[2018-06-10 08:35] LABS: Anisocytosis Slight; Basophils % (A) 0 %; Eosinophils # (A) 0.2 k/uL (0-0.7); Eosinophils % (A) 1 %; HCT 28.1 % (34.0-46.0); HGB 7.6 gm/dL (11.4-16.0); Hypochromasia Marked; Lymphocytes # (A) 0.3 k/uL (1.0-4.8); Lymphocytes % (A) 1 %; MCH 22.5 pg (25.0-35.0); MCHC 27.2 g/dL (31.0-37.0); MCV 82.9 fL (80.0-100.0); Mean Platelet Volume 7.7; Monocytes % (A) 3 %; Neutrophils % (A) 95 %; Platelet Count 559 k/uL (150-450); RBC 3.39 m/uL (3.80-5.40); RDW 17.6 % (11.5-15.5)
[2018-06-10] MEDS: MORPHINE SULFATE ER 15 MG TABLET PO SCH ×2 (09:44→21:31)
[2018-06-10] MEDS: INSULIN ASPART (NovoLOG) 100 UNIT/ML VIAL SQ SCH ×4 (09:46→21:31)
[2018-06-10] MEDS: PANTOPRAZOLE 40 MG/10 ML VIAL IVP SCH (09:46)
[2018-06-10] MEDS: LISINOPRIL 2.5 MG TAB PO SCH (09:47)
[2018-06-10] MEDS: MULTIVITAMINS, THERA 1 EACH TAB PO SCH (09:47)
[2018-06-10] MEDS: METOPROLOL TARTRATE 12.5 MG TAB PO SCH ×2 (09:47→21:31)
[2018-06-10] MEDS: FUROSEMIDE 20 MG TAB PO SCH (09:47)
[2018-06-10] MEDS: metFORMIN 500 MG TAB PO SCH ×2 (09:47→21:31)
[2018-06-10] MEDS: HEPARIN SODIUM,PORCINE 5,000 UNIT/ML 1 ML VIAL SQ SCH ×2 (09:48→21:32)
[2018-06-10] MEDS: POTASSIUM CHLORIDE ER 10 MEQ TAB.ER.PRT PO SCH (09:48)
[2018-06-10] MEDS: VANCOMYCIN 1,000 MG in SODIUM CHLORIDE 0.9% 250 ML IVPB SCH (09:49)
[2018-06-10] MEDS: FOLIC ACID 1 MG TAB PO SCH (09:50)
[2018-06-10] MEDS: THIAMINE 100 MG TAB PO SCH (09:50)
[2018-06-10 11:03] LABS: Glucose,Whole Blood 249 mg/dL (75-99)
--- NOTE | 2018-06-10 11:28 | P.PN ---
Subjective This is a pleasant 67-year-old female past medical history significant for B-cell non-Hodgkin's lymphoma stage IV, diabetes mellitus, hypertension, dyslipidemia, obstructive sleep apnea and hypothyroidism. She denies history of coronary artery disease and does not follow with a office helper clerical for any reason. She is currently in the hospital with symptoms of altered mental status, generalized weakness and leukocytosis. She underwent treatment with Hycela and bendamustine last cycle was 03/06/2018. Prior to that in November 2017 she had an echocardiogram that reveals a preserved LV systolic function. Repeat echocardiogram on this admission reveals severe hypo-kinesia globally with an ejection fraction of 20%. She is seen and examined resting comfortably in bed in no acute distress laying essentially flat. She states she came to the hospital because she has been feeling so weak and fatigued at home she cannot perform her activities of daily living. She also describes feeling increasingly fatigued with some shortness of breath over the previous 2 months. She states at baseline she had no shortness of breath however she now wakes up frequently at night short of breath and can no longer. Clinically the stairs without stopping for air. She denies any symptoms of chest discomfort, dizziness or palpitations. Oncology is following and is suspect progression of her non- Hodgkin's lymphoma. Initially on admission it was thought that she had pneumonia and was started on antibiotics. She has been seen in consultation by pulmonary team as well and they believe that her fever is related to progression of underlying malignancy. 06/11/2018 She is seen and examined resting comfortably in bed in no acute distress. She is tolerating Lopressor and lisinopril. Blood pressure 116/67 heart rate 94 afebrile maintaining oxygen saturation on nasal cannula. She denies any symptoms of shortness of breath, chest pain, dizziness or palpitations. Laboratory data reviewed, WBC 38, hemoglobin 7.6, platelets 559, sodium 138, potassium 4.3, creatinine 0.84. Repeat chest x-ray reveals worsening bibasilar airspace disease with small effusions. GENERAL: This is a 67-year-old female in no apparent distress at the time of my examination. HEENT: Head is atraumatic, normocephalic. Pupils are equal, round. Sclerae a nicteric. Conjunctivae are clear. Mucous membranes of the mouth are moist. Neck is supple. There is no jugular venous distention. No carotid bruit is heard. LUNGS: Clear to auscultation no wheezes, rales or rhonchi. No chest wall tenderness is noted on palpation or with deep breathing. Diminished b ilaterally. HEART: Regular rate and rhythm without murmurs, rubs or gallops. S1 and S2 heard. EXTREMITIES: Bilateral lower extremity nonpitting edema of the feet, no pretibial edema noted. ASSESSMENT New onset systolic heart failure Non-hodgkins lymphoma Leukocytosis Febrile illness Bilateral pleural effusions, chronic Hypertension Dyslipidemia Diabetes mellitus Anemia secondary to chemotherapy PLAN Continue current medical regimen. We recommend she follow-up in the office for repeat echocardiogram in a couple of months. If her cardiomyopathy does not improve we will further investigate the cause of cardiomyopathy at that time as an outpatient. We will continue to follow as needed, please feel free to call with further questions or concerns. Nurse Practitioner note has been reviewed, I agree with a documented findings and plan of care. Patient was seen and examined. Objective - Vital Signs Vital signs: Vital Signs Temp 97.4 F L 06/10/18 05:00 Pulse 94 06/10/18 05:00 Resp 17 06/10/18 05:00 BP 116/67 06/10/18 05:00 Pulse Ox 91 L 06/10/18 05:00 Intake & Output 06/09/18 06/10/18 06/10/18 18:59 06:59 18:59 Intake Total 160 500 Output Total 300 Balance -140 500 Weight 69.6 kg Intake: IV 500 Piperacillin-Tazobactam 3 100 .375 gm In Sodium Chloride 0.9% 100 ml @ 25 mls/hr IVPB Q8H YVETTE Rx#: [id number] Sodium Chloride 0.9% 1, 400 000 ml @ 50 mls/hr IV . Q20H YVETTE Rx#:[id number] Oral 160 Output: Urine 300 Other: Voiding Method Bedside Commode Bedside Commode Diaper Diaper # Voids 2 2 - Labs CBC & Chem 7: 06/10/18 07:46 06/10/18 07:46 Labs: Abnormal Lab Results - Last 24 Hours (Table) 06/07/18 06/09/18 06/09/18 Range/Units 08:56 11:52 16:58 WBC (3.8-10.6) k/uL RBC (3.80-5.40) m/uL Hgb (11.4-16.0) gm/dL Hct (34.0-46.0) % MCH (25.0-35.0) pg MCHC (31.0-37.0) g/dL RDW (11.5-15.5) % Plt Count (150-450) k/uL Neutrophils # (1.3-7.7) k/uL Lymphocytes # (1.0-4.8) k/uL Glucose (74-99) mg/dL POC Glucose (mg/dL) 173 H 167 H (75-99) mg/dL Calcium (8.4-10.2) mg/dL Methylmalonic Acid 0.63 H (<0.40) umol/L 06/09/18 06/10/18 06/10/18 Range/Units 20:49 07:20 07:46 WBC 38.0 H (3.8-10.6) k/uL RBC 3.39 L (3.80-5.40) m/uL Hgb 7.6 L (11.4-16.0) gm/dL Hct 28.1 L (34.0-46.0) % MCH 22.5 L (25.0-35.0) pg MCHC 27.2 L (31.0-37.0) g/dL RDW 17.6 H (11.5-15.5) % Plt Count 559 H (150-450) k/uL Neutrophils # 36.0 H (1.3-7.7) k/uL Lymphocytes # 0.3 L (1.0-4.8) k/uL Glucose (74-99) mg/dL POC Glucose (mg/dL) 134 H 215 H (75-99) mg/dL Calcium (8.4-10.2) mg/dL Methylmalonic Acid (<0.40) umol/L 06/10/18 06/10/18 Range/Units 07:46 11:00 WBC (3.8-10.6) k/uL RBC (3.80-5.40) m/uL Hgb (11.4-16.0) gm/dL Hct (34.0-46.0) % MCH (25.0-35.0) pg MCHC (31.0-37.0) g/dL RDW (11.5-15.5) % Plt Count (150-450) k/uL Neutrophils # (1.3-7.7) k/uL Lymphocytes # (1.0-4.8) k/uL Glucose 212 H (74-99) mg/dL POC Glucose (mg/dL) 249 H (75-99) mg/dL Calcium 10.3 H (8.4-10.2) mg/dL Methylmalonic Acid (<0.40) umol/L Microbiology - Last 24 Hours (Table) 06/04/18 18:00 Blood Culture - Preliminary Blood No Growth after 120 hours 06/06/18 15:37 Blood Culture - Preliminary Blood No Growth after 72 hours
--- NOTE | 2018-06-10 15:51 | PN ---
PROGRESS NOTE DATE OF SERVICE: 06/10/2018 I am covering for Dr. Solano. This 67-year-old woman who was admitted with severe back pain also had some gait dysfunction. The patient also had possibly non-Hodgkin's lymphoma stage IV with retroperitoneal mass. The patient also had some confusion also. No chest pain. No palpitations. No fever. EXAM: Alert and oriented x3. The pulse is 94, blood pressure 160/67, respirations 17, temp 97.4%, pulse ox 99% on 2 L. HEENT is conjunctivae normal. NECK: No jugular venous distention. CARDIOVASCULAR: S1, S2 muffled. RESPIRATORY SYSTEM: Breath sounds diminished at the bases. A few scattered rhonchi and crackles. ABDOMEN: Soft. Nontender. Nervous system: Diffusely weak. LABS: WBC 38, hemoglobin 7.6, sodium 138, potassium 4.3, glucose is 212. ASSESSMENT: 1. Severe back pain and significant distress as well as gait dysfunction. 2. Change in mental status acute metabolic encephalopathy multifactorial. 3. Non-Hodgkin's lymphoma stage IV. 4. History of recent retroperitoneal mass biopsy. 5. Fever of undetermined origin. 6. Leukocytosis. 7. Possible sepsis with pneumonia on presentation. 8. Increased WBC. 9. Anemia, normocytic. 10.Hypoglycemia. 11.Hypomagnesemia. 12.Gait dysfunction. 13.Severe pain. 14.History of congestive heart failure. 15.Diabetes type 2. 16.Hypertension. 17.Hyperlipidemia. 18.History of closed-head injury. 19.Hypothyroidism. 20.History of anxiety. 21.NO CODE, NO CPR, NO VENT. RECOMMENDATIONS AND DISCUSSION: This 67-year-old woman who presented with multiple complex medical issues, we will monitor the patient closely. Continue the current medications, management and symptomatic treatment. Otherwise at this time I recommend continue with current medications, continue with symptomatic treatment. I would recommend repeat labs. PT/OT evaluation, possible ECF rehab. Dr. Solano will follow tomorrow. Further recommendations to follow. MMODL / IJN: [id number] /
[2018-06-10 17:12] LABS: Glucose,Whole Blood 230 mg/dL (75-99)
[2018-06-10] MEDS: PANTOPRAZOLE 40 MG TABLET PO SCH (18:07)
[2018-06-10 19:56] LABS: Glucose,Whole Blood 211 mg/dL (75-99)
[2018-06-10] MEDS: INSULIN DETEMIR (LEVEMIR) 100 UNIT/ML SYR SQ SCH (21:28)
[2018-06-10] MEDS: CITALOPRAM HYDROBROMIDE 20 MG TAB PO SCH (21:31)
[2018-06-10] MEDS: ATORVASTATIN 40 MG TAB PO SCH (21:33)
[2018-06-10 21:57] VITALS: RESP 16
[2018-06-11] MEDS: METOCLOPRAMIDE 5 MG/ML 2 ML VIAL IVP SCH ×2 (00:30→08:17)
[2018-06-11] MEDS: KETOROLAC 30 MG/ML 1 ML VIAL IVP PRN (01:01)
[2018-06-11] MEDS: HYDROcodone/APAP 5-325MG 1 EACH TAB PO PRN (01:44)
[2018-06-11] MEDS: PIPERACILLIN-TAZOBACTAM 3.375 GM in SODIUM CHLORIDE 0.9% 100 ML IVPB SCH ×2 (03:57→11:32)
[2018-06-11 05:28] LABS: Glucose,Whole Blood 195 mg/dL (75-99)
[2018-06-11] MEDS ORDERED: Potassium Replacement Protocol 1 EACH MISC MISCELLANE PRN (05:57)
[2018-06-11 06:19] LABS: Anisocytosis Slight; Basophils % (A) 0 %; Eosinophils # (A) 0.3 k/uL (0-0.7); Eosinophils % (A) 1 %; HCT 27.4 % (34.0-46.0); HGB 7.6 gm/dL (11.4-16.0); Hypochromasia Marked; Lymphocytes # (A) 0.4 k/uL (1.0-4.8); Lymphocytes % (A) 1 %; MCH 22.8 pg (25.0-35.0); MCHC 27.7 g/dL (31.0-37.0); MCV 82.3 fL (80.0-100.0); Mean Platelet Volume 7.2; Monocytes # (A) 1.2 k/uL (0-1.0); Monocytes % (A) 3 %; Neutrophils # (A) 39.5 k/uL (1.3-7.7); Neutrophils % (A) 94 %; Platelet Count 654 k/uL (150-450); RBC 3.33 m/uL (3.80-5.40); RDW 17.7 % (11.5-15.5); WBC 41.9 k/uL (3.8-10.6)
[2018-06-11] MEDS: LEVOTHYROXINE 125 MCG TAB PO SCH (06:22)
[2018-06-11 06:37] LABS: Calcium 10.6 mg/dL (8.4-10.2); Magnesium 1.6 mg/dL (1.6-2.3); Potassium 4.3 mmol/L (3.5-5.1)
[2018-06-11 06:55] LABS: Glucose,Whole Blood 204 mg/dL (75-99)
[2018-06-11] MEDS: MAGNESIUM SULFATE-D5W PMX 1 GM in DEXTROSE/WATER 1 100ML.BAG IVPB SCH ×2 (08:16→09:50)
[2018-06-11] MEDS: HEPARIN SODIUM,PORCINE 5,000 UNIT/ML 1 ML VIAL SQ SCH (08:17)
[2018-06-11] MEDS: LISINOPRIL 2.5 MG TAB PO SCH (08:18)
[2018-06-11] MEDS: PANTOPRAZOLE 40 MG TABLET PO SCH (08:18)
[2018-06-11] MEDS: MORPHINE SULFATE ER 15 MG TABLET PO SCH (08:18)
[2018-06-11] MEDS: FUROSEMIDE 20 MG TAB PO SCH (08:18)
[2018-06-11] MEDS: INSULIN ASPART (NovoLOG) 100 UNIT/ML VIAL SQ SCH ×2 (08:19→11:33)
[2018-06-11] MEDS: METOPROLOL TARTRATE 12.5 MG TAB PO SCH (08:19)
[2018-06-11] MEDS: POTASSIUM CHLORIDE ER 10 MEQ TAB.ER.PRT PO SCH (08:21)
[2018-06-11] MEDS: metFORMIN 500 MG TAB PO SCH (08:21)
[2018-06-11] MEDS: VANCOMYCIN 1,000 MG in SODIUM CHLORIDE 0.9% 250 ML IVPB SCH (08:26)
--- NOTE | 2018-06-11 11:27 | P.PN ---
Subjective Patient and family have requested consultation with hospice. This was discussed with oncology. Patient states she is of family weaker. Patient had consultation with cardiology regarding new-onset of of congestive heart failure systolic dysfunction ejection fraction 20% Objective - Vital Signs Vital signs: Vital Signs Temp 97.9 F 06/11/18 05:00 Pulse 91 06/11/18 08:00 Resp 16 06/11/18 05:00 BP 99/61 06/11/18 05:00 Pulse Ox 92 L 06/11/18 05:00 Intake & Output 06/10/18 06/11/18 06/11/18 18:59 06:59 18:59 Intake Total 300 Balance 300 Intake: IV 200 Piperacillin-Tazobactam 3 200 .375 gm In Sodium Chloride 0.9% 100 ml @ 25 mls/hr IVPB Q8H YVETTE Rx#: [id number] Oral 100 Other: Voiding Method Bedside Commode Diaper # Voids 2 1 - Constitutional General appearance: Present: mild distress - EENT Eyes: Present: PERRLA Ears: bilateral: normal - Neck Neck: Present: normal ROM - Respiratory Respiratory: bilateral: diminished - Cardiovascular Rhythm: regular - Integumentary Integumentary: Present: normal - Neurologic Neurologic: Present: CNII-XII intact - Musculoskeletal Musculoskeletal: Present: generalized weakness - Psychiatric Psychiatric Comment(s): Short-term memory problems Psychiatric: Present: A&O x's 3, appropriate affect, intact judgment & insight - Labs CBC & Chem 7: 06/11/18 06:09 06/11/18 06:09 Labs: Abnormal Lab Results - Last 24 Hours (Table) 06/10/18 06/10/18 06/11/18 Range/Units 17:11 19:53 05:25 WBC (3.8-10.6) k/uL RBC (3.80-5.40) m/uL Hgb (11.4-16.0) gm/dL Hct (34.0-46.0) % MCH (25.0-35.0) pg MCHC (31.0-37.0) g/dL RDW (11.5-15.5) % Plt Count (150-450) k/uL Neutrophils # (1.3-7.7) k/uL Lymphocytes # (1.0-4.8) k/uL Monocytes # (0-1.0) k/uL Chloride (98-107) mmol/L BUN (7-17) mg/dL Glucose (74-99) mg/dL POC Glucose (mg/dL) 230 H 211 H 195 H (75-99) mg/dL Calcium (8.4-10.2) mg/dL 06/11/18 06/11/18 06/11/18 Range/Units 06:09 06:09 06:54 WBC 41.9 H (3.8-10.6) k/uL RBC 3.33 L (3.80-5.40) m/uL Hgb 7.6 L (11.4-16.0) gm/dL Hct 27.4 L (34.0-46.0) % MCH 22.8 L (25.0-35.0) pg MCHC 27.7 L (31.0-37.0) g/dL RDW 17.7 H (11.5-15.5) % Plt Count 654 H (150-450) k/uL Neutrophils # 39.5 H (1.3-7.7) k/uL Lymphocytes # 0.4 L (1.0-4.8) k/uL Monocytes # 1.2 H (0-1.0) k/uL Chloride 108 H (98-107) mmol/L BUN 18 H (7-17) mg/dL Glucose 191 H (74-99) mg/dL POC Glucose (mg/dL) 204 H (75-99) mg/dL Calcium 10.6 H (8.4-10.2) mg/dL Microbiology - Last 24 Hours (Table) 06/04/18 18:00 Blood Culture - Final Blood No Growth after 144 hours 06/06/18 15:37 Blood Culture - Preliminary Blood No Growth after 96 hours Assessment and Plan Plan: Assessment Back pain with significant distress as well as gait dysfunction Change in mental status acute metabolic encephalopathy multifactorial Non-Hodgkin's lymphoma stage IV Retroperitoneal mass biopsy Malnutrition calorie protein deficiency moderate Fever of undetermined origin Leukocytosis Sepsis with pneumonia Anemia normocytic Hyperglycemia hypo-magnesium Congestive heart failure systolic new-onset ejection fraction 20% Diabetes type 2 Hypertension Hyperlipidemia Hypothyroidism No code no CPR no ventilator Plan Family and patient discussed hospice care visiting nurses Continue consultation with oncology pulmonology and cardiology
[2018-06-11 11:28] LABS: Glucose,Whole Blood 220 mg/dL (75-99)
[2018-06-11] MEDS: MULTIVITAMINS, THERA 1 EACH TAB PO SCH (11:32)
[2018-06-11] MEDS: THIAMINE 100 MG TAB PO SCH (11:32)
[2018-06-11] MEDS: FOLIC ACID 1 MG TAB PO SCH (11:32)
[2018-06-11 11:56] VITALS: BP 100/55; PULSE 68; TEMP 97.7
--- NOTE | 2018-06-11 12:24 | P.DS ---
Providers Date of admission: 06/04/18 21:14 Expected date of discharge: 06/11/18 Attending physician: Leonard Solano Consults: 06/04/18 21:14 Consult Physician Routine Consulting Provider: Wicho Gracia Consult Reason/Comments: nhl Do you want consulting provider notified?: Yes 06/05/18 09:41 Consult Physician Urgent Consulting Provider: Toi Rayo Consult Reason/Comments: pneumonia pleural effusion Do you want consulting provider notified?: Yes 06/08/18 15:30 Consult Physician Routine Consulting Provider: [facility] Consult Reason/Comments: EF 20% Do you want consulting provider notified?: Yes Primary care physician: Leonard Solano Hospital Course: 67-year-old female was admitted through the emergency room with complaints of severe abdominal back pain. Patient has history of non-Hodgkin's lymphoma stage IV. Patient was evaluated weighted by oncology pulmonology and cardiology. Family made a decision with the patient to go to hospice care. Patient will be discharged home to hospice care Assessment Severe back pain with gait dysfunction Mental status metabolic encephalopathy multifactorial retroperitoneal mass biopsy Fever of undetermined origin most likely from Hodgkin's Anemia normocytic Hypoglycemia hypo-magnesium Congestive heart failure new onset systolic ejection fraction 20% Diabetes type 2 Hypertension Hyperlipidemia No code no CPR no ventilator Plan Hospice care at home Patient Condition at Discharge: Stable Plan - Discharge Summary Discharge Rx Participant: No New Discharge Prescriptions: New Insulin Detemir (Levemir) [Levemir] 10 unit SQ HS #2 syr Metoprolol Tartrate [Lopressor] 12.5 mg PO BID #60 tab Morphine Sulfate ER [Ms Contin] 15 mg PO Q12HR #6 tablet INSULIN ASPART (NovoLOG) [NovoLOG (formulary)] 0 unit SQ ACHS #1 vial Acetaminophen Tab [Tylenol] 650 mg PO Q4HR PRN tab PRN Reason: Fever And/ Or Pain Continue Gabapentin 100 mg PO QAM Furosemide 20 mg PO DAILY Gabapentin [Neurontin] 200 mg PO HS Levothyroxine Sodium [Synthroid] 125 mcg PO MOTUWETHFRSA Citalopram Hydrobromide [CeleXA] 20 mg PO HS metFORMIN HCL 1,000 mg PO BID #0 Potassium Chloride ER [K-Dur 10] 10 meq PO BID Cetirizine HCl 10 mg PO HS Pantoprazole [Protonix] 40 mg PO DAILY Ondansetron [Zofran] 4 mg PO Q6H PRN PRN Reason: Nausea ALPRAZolam [Xanax] 0.33 mg PO DAILY PRN PRN Reason: Anxiety Discontinued Multivitamins, Thera [Multivitamin (formulary)] 1 tab PO DAILY Atorvastatin Calcium [Lipitor] 40 mg PO HS HYDROcodone/APAP 7.5-325MG [[place] 7.5-325] 1 tab PO Q6HR PRN PRN Reason: Pain Discharge Medication List Furosemide 20 mg PO DAILY 09/19/13 [History] Gabapentin 100 mg PO QAM 09/19/13 [History] Gabapentin [Neurontin] 200 mg PO HS 12/05/14 [History] Levothyroxine Sodium [Synthroid] 125 mcg PO MOTUWETHFRSA 12/05/14 [History] Citalopram Hydrobromide [CeleXA] 20 mg PO HS 10/22/17 [History] metFORMIN HCL 1,000 mg PO BID #0 12/08/17 [Rx] Cetirizine HCl 10 mg PO HS 03/30/18 [History] Pantoprazole [Protonix] 40 mg PO DAILY 03/30/18 [History] Potassium Chloride ER [K-Dur 10] 10 meq PO BID 03/30/18 [History] Ondansetron [Zofran] 4 mg PO Q6H PRN 05/23/18 [History] ALPRAZolam [Xanax] 0.33 mg PO DAILY PRN 06/04/18 [History] Acetaminophen Tab [Tylenol] 650 mg PO Q4HR PRN tab 06/11/18 [Rx] INSULIN ASPART (NovoLOG) [NovoLOG (formulary)] 0 unit SQ ACHS #1 vial 06/11/18 [Rx] Insulin Detemir (Levemir) [Levemir] 10 unit SQ HS #2 syr 06/11/18 [Rx] Metoprolol Tartrate [Lopressor] 12.5 mg PO BID #60 tab 06/11/18 [Rx] Morphine Sulfate ER [Ms Contin] 15 mg PO Q12HR #6 tablet 06/11/18 [Rx] Follow up Appointment(s)/Referral(s): Leonard Solano MD [Primary Care Provider] - 1-2 days Wicho Gracia MD [Family Provider] - 06/14/18 1:45 pm ([facility] on [address]) Prabhakar Hernandez MD [STAFF PHYSICIAN] - 2 Weeks Discharge Disposition: HOME WITH HOSPICE
--- NOTE | 2018-06-11 13:14 | P.PN ---
Subjective Progress Note Date: 06/11/18 Principal diagnosis: Fever Long discussion today with patient and daughter regtarding limited treatment options wit the new Cardiac co-morbidity of EF 20%. Patient and daughter have decided to go home with hospice care, which is apppropriate at this time. Objective - Vital Signs Vital signs: Vital Signs Temp 97.7 F 06/11/18 11:28 Pulse 68 06/11/18 11:28 Resp 16 06/11/18 11:28 BP 100/55 06/11/18 11:28 Pulse Ox 95 06/11/18 11:28 Intake & Output 06/10/18 06/11/18 06/11/18 18:59 06:59 18:59 Intake Total 300 Balance 300 Intake: IV 200 Piperacillin-Tazobactam 3 200 .375 gm In Sodium Chloride 0.9% 100 ml @ 25 mls/hr IVPB Q8H YVETTE Rx#: [id number] Oral 100 Other: Voiding Method Bedside Commode Diaper # Voids 2 1 - Exam Gen: Alert and Oriented, NAD Head: NC, NT Neck: Supple Mouth: Dry no lesions Lungs: Diminished bibasilar, no increased effort noted Heart RRR, S1 Abdomen S/ND/NT Ext: BLE 1+ Edema Neuro: No sensory or motor Deficits. - Labs CBC & Chem 7: 06/11/18 06:09 06/11/18 06:09 Labs: Abnormal Lab Results - Last 24 Hours (Table) 06/10/18 06/10/18 06/11/18 Range/Units 17:11 19:53 05:25 WBC (3.8-10.6) k/uL RBC (3.80-5.40) m/uL Hgb (11.4-16.0) gm/dL Hct (34.0-46.0) % MCH (25.0-35.0) pg MCHC (31.0-37.0) g/dL RDW (11.5-15.5) % Plt Count (150-450) k/uL Neutrophils # (1.3-7.7) k/uL Lymphocytes # (1.0-4.8) k/uL Monocytes # (0-1.0) k/uL Chloride (98-107) mmol/L BUN (7-17) mg/dL Glucose (74-99) mg/dL POC Glucose (mg/dL) 230 H 211 H 195 H (75-99) mg/dL Calcium (8.4-10.2) mg/dL 06/11/18 06/11/18 06/11/18 Range/Units 06:09 06:09 06:54 WBC 41.9 H (3.8-10.6) k/uL RBC 3.33 L (3.80-5.40) m/uL Hgb 7.6 L (11.4-16.0) gm/dL Hct 27.4 L (34.0-46.0) % MCH 22.8 L (25.0-35.0) pg MCHC 27.7 L (31.0-37.0) g/dL RDW 17.7 H (11.5-15.5) % Plt Count 654 H (150-450) k/uL Neutrophils # 39.5 H (1.3-7.7) k/uL Lymphocytes # 0.4 L (1.0-4.8) k/uL Monocytes # 1.2 H (0-1.0) k/uL Chloride 108 H (98-107) mmol/L BUN 18 H (7-17) mg/dL Glucose 191 H (74-99) mg/dL POC Glucose (mg/dL) 204 H (75-99) mg/dL Calcium 10.6 H (8.4-10.2) mg/dL 06/11/18 Range/Units 11:27 WBC (3.8-10.6) k/uL RBC (3.80-5.40) m/uL Hgb (11.4-16.0) gm/dL Hct (34.0-46.0) % MCH (25.0-35.0) pg MCHC (31.0-37.0) g/dL RDW (11.5-15.5) % Plt Count (150-450) k/uL Neutrophils # (1.3-7.7) k/uL Lymphocytes # (1.0-4.8) k/uL Monocytes # (0-1.0) k/uL Chloride (98-107) mmol/L BUN (7-17) mg/dL Glucose (74-99) mg/dL POC Glucose (mg/dL) 220 H (75-99) mg/dL Calcium (8.4-10.2) mg/dL Microbiology - Last 24 Hours (Table) 06/04/18 18:00 Blood Culture - Final Blood No Growth after 144 hours 06/06/18 15:37 Blood Culture - Preliminary Blood No Growth after 96 hours Assessment and Plan Plan: Fevers: - Unknown Etiology, potential tumor fever - no active identified infction at t his time, afebrile greater than 24 hours - Thornton cultures ordered - Chest Xray Negative - Zosyn Leukocytosis: Likely reactive - Work-up for infectious process with fever, could be related to malignancy - Baseline 11-15 - Primarily neutrophils - Worsening Likely related to stress dose steroids received on admission - Await tomorrow WBC with diff - Blood Cultures negative at 48 hours - Urine Culture Negative NHL: - Most recently status post treatment with Hycela and bendamustine, status Post Cycle 2 03/06/18 - Prior to above status post treatment with R-Ceop - Highly suspicious for progrssion: CT C/A/P reviewed and discussed with patient, definite progression cannot be ruled out. - Status Post EGD for concern of penetrative lymphoma to Gastric/Esophageal wall - Path did not identify evidence of malignancy - Retroperitoneal Biopsy today 06/06/18 Anorexia and weight loss: - Megace recently ordered Persisitent Nausea and Abdominal Pain: - GI Work-up and CT Scans Reviewed from previous admission Normocytic Anemia: Secondary to chemo and lymphoma - CBC and CMP in am - Initial drop 12-8.8. No active bleeding noted, likely from dilutio - CBC today and transfuse if less than 7 Myopathy and Debility: - Rec PT/OT work with Patient Hypercalcemia: - Secondary to dehydration malignancy, monitor for tumor lysis PLAN: - New Onset CHF, EF 20%, limited options for treatment at this time. Dr. Gracia had a long discussion with patient and daughter, plan is home with hospice care. [facility] Attest: I have completed the full history and physical and developed the complete impression and plan, agree with above, dictated as a scribe
[2018-06-11 13:25] VITALS: BMI 28.0
--- NOTE | 2018-06-15 08:25 | CDI ---
Documentation Clarification Form Date: 06/15 From: Johnie Canales Phone: call stuart sarmiento at [phone] Admit Date: 06/04/2018 9:14:00 PM Patient Name: Maricruz Ledezma Visit Number: [id number] Discharge Date: 06/11/2018 3:46:00 PM ATTENTION: The Clinical Documentation Specialists (CDI) and [facility] Coding Staff appreciate your assistance in clarifying documentation. Please respond to the clarification below the line at the bottom and electronically sign. The CDI & [facility] Coding staff will review the response and follow-up if needed. Please note: Queries are made part of the Legal Health Record. If you have any questions, please contact the author of this message via ITS. Dr. Leonard Solano, The patient presented with fever of undetermined origin, Sepsis Pneumonia with history of B-cell non hodgkin's lymphoma stage 4 Conflicting Information-Patient admitted with fever and related to Infectious process initially and started IV abx and at last progress note and discharge summary stated fever of undetermined origin, no active infection was identified at this time, blood &urine all cultures are negative. stated fever could be related to Lymphoma. WBC: 21.3 Lactic acid: 1.8 Blood cultures: Negative for 48 hours Vitals signs on admission: T-102.3, pulse-108 RR-16 BP-118/73 Other Clinical Indicators: O2- 92 Treatment: IV antibiotics. ID Consult: None Antibiotics:Zosyn and vancomycin IV Bolus: yes In your professional opinion, please clarify if these findings signify one of the following conditions, whether the condition is POA, and cause, if known: Condition Sepsis ruled out Fever of undetermined etiology Sepsis ruled in Other, please specify Unable to determine Present on Admission Yes No MTDD
--- NOTE | 2018-06-18 11:03 | P.PN ---
Progress Note - Text Addendum. Sepsis ruled out fever of undetermined origin malignancy of lymphoma
== END 2018-06-11 15:46 | disposition hospice, home (50) | DRG 840 ==
LOC: EC 16:06 → 3NMEDONC 21:14
PROVIDERS: ADMIT Family Medicine; ATTEND Family Medicine
PROC: 0WBH3ZX Excision of Retroperitoneum, Percutaneous Approach, Diagnostic (ICD-10-PCS; principal; 2018-06-06)
DX: C85.10 Unspecified B-cell lymphoma, unspecified site (principal); G93.41 Metabolic encephalopathy; I50.21 Acute systolic (congestive) heart failure; E44.0 Moderate protein-calorie malnutrition; I42.9 Cardiomyopathy, unspecified; R50.81 Fever presenting with conditions classified elsewhere; D64.81 Anemia due to antineoplastic chemotherapy; E83.52 Hypercalcemia; E83.42 Hypomagnesemia; E11.649 Type 2 diabetes mellitus with hypoglycemia without coma; E86.0 Dehydration; I11.0 Hypertensive heart disease with heart failure; E78.5 Hyperlipidemia, unspecified; G47.33 Obstructive sleep apnea (adult) (pediatric); F41.9 Anxiety disorder, unspecified; D63.0 Anemia in neoplastic disease; R10.9 Unspecified abdominal pain; Z51.5 Encounter for palliative care; R26.9 Unspecified abnormalities of gait and mobility; T45.1X5A Adverse effect of antineoplastic and immunosuppressive drugs, initial encounter; X58.XXXA Exposure to other specified factors, initial encounter; I49.3 Ventricular premature depolarization; E89.0 Postprocedural hypothyroidism; Z87.828 Personal history of other (healed) physical injury and trauma; Z86.73 Personal history of transient ischemic attack (TIA), and cerebral infarction without residual deficits; Z87.442 Personal history of urinary calculi; Z79.84 Long term (current) use of oral hypoglycemic drugs; Z90.49 Acquired absence of other specified parts of digestive tract; Z90.710 Acquired absence of both cervix and uterus; Z90.89 Acquired absence of other organs; I25.2 Old myocardial infarction; Z80.3 Family history of malignant neoplasm of breast; Z80.0 Family history of malignant neoplasm of digestive organs; Z80.8 Family history of malignant neoplasm of other organs or systems; Z79.890 Hormone replacement therapy; Z79.899 Other long term (current) drug therapy; Z88.9 Allergy status to unspecified drugs, medicaments and biological substances; Z88.1 Allergy status to other antibiotic agents; Z91.041 Radiographic dye allergy status
CPT/HCPCS: 36415; 49180; 71046; 77012; 80048; 80053; 80202; 81001; 82330; 82607; 82784; 83605; 83615; 83735; 83880; 83921; 84100; 84550; 85025; 85610; 85730; 86850; 86900; 86901; 87040; 87086; 87502; 88305; 88341; 88342; 93005; 93306; 94760; 96361; 96365; 96366; 96368; 96375; 99284